=== PATIENT | female | born 1950 | race Caucasian/White ===

== ENCOUNTER → 2016-08-25 | Outpatient (CLI) | payer MEDICARE, OTHER ==
[2016-08-25 12:51] LABS: Hemoglobin A1C 6.8 % (4.2-6.1)
== END | disposition home or self-care (01) ==
LOC: LABWHC1 10:02
PROVIDERS: ATTEND Internal Medicine Cardiovascular Disease
DX: E11.9 Type 2 diabetes mellitus without complications (principal); E03.9 Hypothyroidism, unspecified; E78.2 Mixed hyperlipidemia
CPT/HCPCS: 36415; 80061; 83036; 84439; 84443; 84450; 84460

== ENCOUNTER 2017-09-02 14:36 | Emergency (ER) | payer MEDICARE, OTHER ==
[2017-09-02 14:53] VITALS: RESP 18
[2017-09-02] MEDS ORDERED: RX INFO: IV CONTRAST WAS GIVEN 1 EACH MISC MISCELLANE PRN (15:14)
[2017-09-02 15:39] LABS: Basophils # (A) 0.1 k/uL (0-0.2); Basophils % (A) 1 %; Eosinophils # (A) 0.2 k/uL (0-0.7); Eosinophils % (A) 2 %; HCT 38.7 % (34.0-46.0); HGB 12.7 gm/dL (11.4-16.0); Lymphocytes # (A) 2.2 k/uL (1.0-4.8); Lymphocytes % (A) 26 %; MCHC 32.8 g/dL (31.0-37.0); MCV 94.6 fL (80.0-100.0); Mean Platelet Volume 6.4; Monocytes # (A) 0.3 k/uL (0-1.0); Monocytes % (A) 4 %; Neutrophils # (A) 5.7 k/uL (1.3-7.7); Neutrophils % (A) 67 %; Platelet Count 249 k/uL (150-450); RBC 4.09 m/uL (3.80-5.40); RDW 12.6 % (11.5-15.5); WBC 8.5 k/uL (3.8-10.6)
--- NOTE | 2017-09-02 15:45 | ED ---
General Adult HPI - General Chief complaint: Abdominal Pain Stated complaint: Abd Pain Time Seen by Provider: 09/02/17 15:07 Source: patient, RN notes reviewed Mode of arrival: ambulatory Limitations: physical limitation - History of Present Illness Initial comments: Patient 67-year-old female who presents emergency room today with chief complaint of abdominal pain and swelling. She does admit that she's had these symptoms for quite some time. States been worse over the last few weeks. She went to family doctor's office earlier today and was advised coming here to the emergency room to have a CT of the abdomen and pelvis. Patient does admit that she gets sharp pain and cramping pain in the lower and upper abdomen. Patient doesn't feeling nauseated. Patient denies any other complaints or symptoms. Patient denies any recent fever, chills, shortness of breath, chest pain, back pain, numbness or tingling, dysuria or hematuria, constipation or diarrhea, headaches or visual changes, or any other complaints. - Related Data Home Medications Medication Instructions Recorded Confirmed OXcarbazepine [Trileptal] 300 mg PO BID 06/24/16 09/02/17 PARoxetine HCL [Paxil] 40 mg PO HS 06/24/16 09/02/17 clonazePAM [KlonoPIN] 1 - 2 mg PO DAILY PRN 07/15/16 09/02/17 Aspirin EC [Ecotrin Low Dose] 81 mg PO DAILY 09/02/17 09/02/17 Carvedilol [Coreg] 3.125 mg PO BID 09/02/17 09/02/17 Isosorbide Mononitrate ER [Imdur] 30 mg PO DAILY 09/02/17 09/02/17 Metoprolol Tartrate [Lopressor] 25 mg PO BID 09/02/17 09/02/17 Omeprazole [PriLOSEC] 20 mg PO DAILY 09/02/17 09/02/17 traZODone HCL 50 mg PO HS 09/02/17 09/02/17 Previous Rx's Medication Instructions Recorded Atorvastatin [Lipitor] 80 mg PO HS tab 08/15/15 Clopidogrel [Plavix] 75 mg PO DAILY tab 08/15/15 Nitroglycerin Sl Tabs [Nitrostat] 0.4 mg SUBLINGUAL Q5M PRN #0 tab 08/15/15 Nitrofurantoin Monohyd/M-Cryst 100 mg PO Q12HR #14 cap 09/02/17 [Macrobid] Allergies Allergy/AdvReac Type Severity Reaction Status Date / Time codeine AdvReac Nausea & Verified 09/02/17 16:01 Vomiting hydrocodone AdvReac Nausea & Verified 09/02/17 16:01 Vomiting Review of Systems ROS Statement: Those systems with pertinent positive or pertinent negative responses have been documented in the HPI. ROS Other: All systems not noted in ROS Statement are negative. Past Medical History Past Medical History: Coronary Artery Disease (CAD), Diabetes Mellitus, GERD/ Reflux, Hyperlipidemia, Hypertension, Myocardial Infarction ([place]), Osteoarthritis (OA) Additional Past Medical History / Comment(s): 01-31-15 pancreatitis. 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's lymphoma,l, chronic back pain, gout, diabetes mellitus, bipolar disorder/depression/anxiety, hyperlipidemia, coronary artery disease with previous [place], GERD reflux, chronic smoking, previous history of pancreatitis- etiology is not clear Last Myocardial Infarction Date:: 2014 History of Any Multi-Drug Resistant Organisms: None Reported Past Surgical History: Heart Catheterization With Stent Additional Past Surgical History / Comment(s): EGD/CoLONOSCOPY, bone maroow bx- neg, TOTAL OF 3 CARDIAC STENTS Past Anesthesia/Blood Transfusion Reactions: No Reported Reaction Additional Past Anesthesia/Blood Transfusion Reaction / Comment(s): clausterphobia Date of Last Stent Placement:: UNK Past Psychological History: Anxiety, Bipolar, Depression Smoking Status: Current every day smoker Past Alcohol Use History: None Reported Past Drug Use History: None Reported - Past Family History Father Family Medical History: Diabetes Mellitus, Myocardial Infarction ([place]) Mother Family Medical History: Diabetes Mellitus, Myocardial Infarction ([place]) General Exam - General Exam Comments Initial Comments: General: The patient is awake and alert, in no distress, and does not appear acutely ill. Eye: Pupils are equal, round and reactive to light, extra-ocular movements are intact. No nystagmus. There is normal conjunctiva bilaterally. No signs of icterus. Ears, nose, mouth and throat: There are moist mucous membranes and no oral lesions. Neck: The neck is supple, there is no tenderness or JVD. Cardiovascular: There is a regular rate and rhythm. No murmur, rub or gallop is appreciated. Respiratory: Lungs are clear to auscultation, respirations are non-labored, breath sounds are equal. No wheezes, stridor, rales, or rhonchi. Gastrointestinal: Abdomen mildly distended. Patient does have mild tenderness epigastric. Mild tenderness lower midline of the abdomen. No rebound tenderness. No guarding. No CVA tenderness. Musculoskeletal: Normal ROM, no tenderness. Strength 5/5. Sensation intact. Pulses equal bilaterally 2+. Neurological: A&O x 3. CN II-XII intact, There are no obvious motor or sensory deficits. Coordination appears grossly intact. Speech is normal. Skin: Skin is warm and dry and no rashes or lesions are noted. Psychiatric: Cooperative, appropriate mood & affect, normal judgment. Limitations: physical limitation Course Vital Signs 09/02/17 09/02/17 14:49 16:26 Temperature 98.4 F Pulse Rate 59 L 65 Respiratory 18 18 Rate Blood Pressure 119/59 132/62 O2 Sat by Pulse 96 98 Oximetry Medical Decision Making - Medical Decision Making The patient's CT reviewed does show constipation. Clear pulmonary edema and pleural effusion compared to an old computed tomography scan. Arthroscopic vascular disease. L4-5 mild spinal stenosis. No evidence of acute abdomen. As read by radiologist Dr. Pascal. Patient states she's been having good bowel movements. Patient's labs been reviewed does show evidence for urinary tract infection. Labs are unremarkable. No fever here in emergency room. She doesn't that she's had this abdominal "swelling" for quite some time. At this time patient was given dose Rocephin here in the emergency room to treat for urinary tract infection. Patient resting comfortably. Patient will be discharged from the follow-up the family doctor advised to have repeat urinalysis. Culture is pending. Patient will be continued on antibiotics at home. Advised return if there is any fever. Advised return for any other concerns. - Lab Data Result diagrams: 09/02/17 15:23 09/02/17 15:23 Lab Results 09/02/17 09/02/17 09/02/17 Range/Units 15:23 15:23 15: WBC 8.5 (3.8-10.6) k/uL RBC 4.09 (3.80-5.40) m/uL Hgb 12.7 (11.4-16.0) gm/dL Hct 38.7 (34.0-46.0) % MCV 94.6 (80.0-100.0) fL MCH 31.0 (25.0-35.0) pg MCHC 32.8 (31.0-37.0) g/dL RDW 12.6 (11.5-15.5) % Plt Count 249 (150-450) k/uL Neutrophils % 67 % Lymphocytes % 26 % Monocytes % 4 % Eosinophils % 2 % Basophils % 1 % Neutrophils # 5.7 (1.3-7.7) k/uL Lymphocytes # 2.2 (1.0-4.8) k/uL Monocytes # 0.3 (0-1.0) k/uL Eosinophils # 0.2 (0-0.7) k/uL Basophils # 0.1 (0-0.2) k/uL PT 9.7 (9.0-12.0) sec INR 1.0 (<1.2) APTT 22.6 (22.0-30.0) sec Sodium 137 (137-145) mmol/L Potassium 4.7 (3.5-5.1) mmol/L Chloride 103 (98-107) mmol/L Carbon Dioxide 22 (22-30) mmol/L Anion Gap 12 mmol/L BUN 14 (7-17) mg/dL Creatinine 0.85 (0.52-1.04) mg/dL Est GFR (MDRD) Af Amer >60 (>60 ml/min/1.73 sqM) Est GFR (MDRD) Non-Af >60 (>60 ml/min/1.73 sqM) Glucose 127 H (74-99) mg/dL Calcium 9.6 (8.4-10.2) mg/dL Total Bilirubin 0.5 (0.2-1.3) mg/dL AST 20 (14-36) U/L ALT 28 (9-52) U/L Alkaline Phosphatase 140 H (38-126) U/L Total Protein 6.7 (6.3-8.2) g/dL Albumin 4.3 (3.5-5.0) g/dL Urine Color Urine Appearance (Clear) Urine pH (5.0-8.0) Ur Specific [place] (1.001-1.035) Urine Protein (Negative) Urine Glucose (UA) (Negative) Urine Ketones (Negative) Urine Blood (Negative) Urine Nitrite (Negative) Urine Bilirubin (Negative) Urine Urobilinogen (<2.0) mg/dL Ur Leukocyte Esterase (Negative) Urine WBC (0-5) /hpf Urine WBC Clumps (None) /hpf Ur Squamous Epith Cells (0-4) /hpf Urine Bacteria (None) /hpf Urine Mucus (None) /hpf 09/02/17 Range/Units 15:23 WBC (3.8-10.6) k/uL RBC (3.80-5.40) m/uL Hgb (11.4-16.0) gm/dL Hct (34.0-46.0) % MCV (80.0-100.0) fL MCH (25.0-35.0) pg MCHC (31.0-37.0) g/dL RDW (11.5-15.5) % Plt Count (150-450) k/uL Neutrophils % % Lymphocytes % % Monocytes % % Eosinophils % % Basophils % % Neutrophils # (1.3-7.7) k/uL Lymphocytes # (1.0-4.8) k/uL Monocytes # (0-1.0) k/uL Eosinophils # (0-0.7) k/uL Basophils # (0-0.2) k/uL PT (9.0-12.0) sec INR (<1.2) APTT (22.0-30.0) sec Sodium (137-145) mmol/L Potassium (3.5-5.1) mmol/L Chloride (98-107) mmol/L Carbon Dioxide (22-30) mmol/L Anion Gap mmol/L BUN (7-17) mg/dL Creatinine (0.52-1.04) mg/dL Est GFR (MDRD) Af Amer (>60 ml/min/1.73 sqM) Est GFR (MDRD) Non-Af (>60 ml/min/1.73 sqM) Glucose (74-99) mg/dL Calcium (8.4-10.2) mg/dL Total Bilirubin (0.2-1.3) mg/dL AST (14-36) U/L ALT (9-52) U/L Alkaline Phosphatase (38-126) U/L Total Protein (6.3-8.2) g/dL Albumin (3.5-5.0) g/dL Urine Color Light Yellow Urine Appearance Slightly Cloudy H (Clear) Urine pH 6.0 (5.0-8.0) Ur Specific [place] 1.015 (1.001-1.035) Urine Protein 1+ (Negative) Urine Glucose (UA) Negative (Negative) Urine Ketones Negative (Negative) Urine Blood Negative (Negative) Urine Nitrite Negative (Negative) Urine Bilirubin 1+ H (Negative) Urine Urobilinogen 2.0 (<2.0) mg/dL Ur Leukocyte Esterase Large (Negative) Urine WBC >182 H (0-5) /hpf Urine WBC Clumps Rare H (None) /hpf Ur Squamous Epith Cells 3 (0-4) /hpf Urine Bacteria Few H (None) /hpf Urine Mucus Rare H (None) /hpf Disposition Clinical Impression: UTI (urinary tract infection), Abdominal pain Disposition: HOME SELF-CARE Condition: Good Instructions: Urinary Tract Infection in Women (ED) Additional Instructions: Please use medication as discussed. Please follow-up with family doctor in the next 2 days. Please return to emergency room if the symptoms increase or worsen or for any other concerns. Prescriptions: Nitrofurantoin Monohyd/M-Cryst [Macrobid] 100 mg PO Q12HR #14 cap Referrals: Nancy Chavez MD [Primary Care Provider] - 1-2 days Time of Disposition: 17:59
[2017-09-02 15:48] LABS: Bacteria,Urine Few /hpf; Mucus,Urine Rare /hpf; Squamous Epithelial Cell,Urine 3 /hpf (0-4); WBC,Urine >182 /hpf (0-5)
[2017-09-02] MEDS ORDERED: cefTRIAXone IN SWFI 1,000 MG/10 ML SYRINGE IVP STA (15:50)
[2017-09-02 15:55] LABS: ALT 28 U/L (9-52); AST 20 U/L (14-36); Albumin 4.3 g/dL (3.5-5.0); Alkaline Phosphatase 140 U/L (38-126); Anion Gap 12 mmol/L; Appearance,Urine Slightly Cloudy (Clear); Blood Urea Nitrogen 14 mg/dL (7-17); Calcium 9.6 mg/dL (8.4-10.2); Carbon Dioxide 22 mmol/L (22-30); Chloride 103 mmol/L (98-107); Color,Urine Light Yellow; Glucose 127 mg/dL (74-99); Potassium 4.7 mmol/L (3.5-5.1); Protein,Urine 1+ (Negative); Sodium 137 mmol/L (137-145); Specific Gravity,Urine 1.015 (1.001-1.035); Total Bilirubin 0.5 mg/dL (0.2-1.3); Total Protein 6.7 g/dL (6.3-8.2)
[2017-09-02 15:56] LABS: Bilirubin,Urine 1+ (Negative); Blood,Urine Negative (Negative); Glucose,Urine (UA) Negative (Negative); Ketones,Urine Negative (Negative); Leukocyte Esterase,Urine Large (Negative); Nitrite,Urine Negative (Negative)
[2017-09-02 16:09] LABS: Partial Thromboplastin Time 22.6 sec (22.0-30.0); Prothrombin Time 9.7 sec (9.0-12.0)
--- NOTE | 2017-09-02 17:24 | CT ---
EXAMINATION TYPE: CT abdomen pelvis w con DATE OF EXAM: 09/02/2017 COMPARISON: 08/05/2015 HISTORY: Generalized pain CT DLP: 1432 mGycm Automated exposure control for dose reduction was used. TECHNIQUE: Helical acquisition of images was performed from the lung bases through the pelvis. CONTRAST: Performed without Oral Contrast and with IV Contrast, patient injected with 100 mL of Omnipaque 300. FINDINGS: Lung bases are clear. There is no pleural effusion. Liver spleen pancreas gallbladder appear normal. Bile ducts are not dilated. There is no adrenal mass. Kidneys show satisfactory contrast opacification. There is no hydronephrosi s. There is no retroperitoneal adenopathy. There is no ascites. Abdominal aorta is atheromatous. Ther e is some retained fecal material throughout the colon. There is no sign of free air. I see no intest inal wall thickening. Appendix appears normal. There are spondylotic changes in the lumbar spine. There is lateral recess stenosis and some spinal s tenosis at L4-5. IMPRESSION: CONSTIPATION. THERE IS CLEARING OF THE PULMONARY EDEMA AND PLEURAL FLUID COMPARED TO OLD CT SCAN. ATHEROSCLEROTIC VASCULAR DISEASE. L4-5 MILD SPINAL STENOSIS. NO EVIDENCE OF AN ACUTE ABDOMEN.
[2017-09-02 19:45] VITALS: BP 124/76; PULSE 62; TEMP 98
== END 2017-09-02 16:00 | disposition home or self-care (01) ==
LOC: EC 14:36
DX: N39.0 Urinary tract infection, site not specified (principal); R10.10 Upper abdominal pain, unspecified; K59.00 Constipation, unspecified; M48.061 Spinal stenosis, lumbar region without neurogenic claudication; J81.1 Chronic pulmonary edema; J90 Pleural effusion, not elsewhere classified; I99.9 Unspecified disorder of circulatory system; R14.0 Abdominal distension (gaseous); R19.00 Intra-abdominal and pelvic swelling, mass and lump, unspecified site; I10 Essential (primary) hypertension; I25.10 Atherosclerotic heart disease of native coronary artery without angina pectoris; K21.9 Gastro-esophageal reflux disease without esophagitis; M19.90 Unspecified osteoarthritis, unspecified site; F41.9 Anxiety disorder, unspecified; M10.9 Gout, unspecified; F32.9 Major depressive disorder, single episode, unspecified; I25.2 Old myocardial infarction; F17.200 Nicotine dependence, unspecified, uncomplicated; Z79.82 Long term (current) use of aspirin; Z79.899 Other long term (current) drug therapy; Z88.5 Allergy status to narcotic agent
CPT/HCPCS: 36415; 80053; 85025; 85610; 85730; 81001; 74177; 99284; 96374; J0696; Q9967

== ENCOUNTER 2018-08-22 14:30 | Emergency (ER) | payer MEDICARE, OTHER ==
[2018-08-22 14:54] VITALS: RESP 18
[2018-08-22] MEDS ORDERED: SODIUM CHLORIDE 0.9% 1,000 ML IV STA (14:59)
[2018-08-22 15:35] LABS: Basophils # (A) 0.1 k/uL (0-0.2); Basophils % (A) 1 %; Eosinophils # (A) 0.2 k/uL (0-0.7); Eosinophils % (A) 3 %; HCT 37.4 % (34.0-46.0); HGB 12.6 gm/dL (11.4-16.0); Lymphocytes # (A) 1.6 k/uL (1.0-4.8); Lymphocytes % (A) 17 %; MCH 31.2 pg (25.0-35.0); MCHC 33.6 g/dL (31.0-37.0); Mean Platelet Volume 6.4; Monocytes # (A) 0.3 k/uL (0-1.0); Monocytes % (A) 3 %; Neutrophils # (A) 6.8 k/uL (1.3-7.7); Neutrophils % (A) 75 %; Platelet Count 204 k/uL (150-450); RBC 4.02 m/uL (3.80-5.40); RDW 12.5 % (11.5-15.5)
[2018-08-22 15:46] LABS: INR 0.9 (<1.2); Prothrombin Time 9.6 sec (9.0-12.0)
[2018-08-22 15:49] LABS: Albumin 3.5 g/dL (3.5-5.0); Calcium 9.1 mg/dL (8.4-10.2); Creatine Kinase 52 U/L (30-135); Magnesium 1.9 mg/dL (1.6-2.3); Potassium 4.9 mmol/L (3.5-5.1); Total Bilirubin 0.5 mg/dL (0.2-1.3); Total Protein 5.8 g/dL (6.3-8.2)
--- NOTE | 2018-08-22 15:58 | XR ---
EXAMINATION TYPE: XR chest 2V DATE OF EXAM: 08/22/2018 COMPARISON: 07/07/2016 HISTORY: Syncopal episode. TECHNIQUE: Frontal and lateral views of the chest are obtained. FINDINGS: There is new right basilar atelectasis at the right cardiophrenic angle. Cardia mediastina l silhouette is mildly enlarged. Remainder the lungs are clear. No pleural effusion or pneumothorax. IMPRESSION: New right middle lobe atelectasis, otherwise no acute cardiopulmonary process.
[2018-08-22 15:59] LABS: Partial Thromboplastin Time 20.5 sec (22.0-30.0)
[2018-08-22 16:01] LABS: Creatine Kinase MB 0.3 ng/mL (0.0-2.4); Troponin I <0.012 ng/mL (0.000-0.034)
--- NOTE | 2018-08-22 16:40 | ED ---
Syncope HPI - General Source: patient, EMS Mode of arrival: EMS Limitations: no limitations <Zurdo Clarke - Last Filed: 08/22/18 16:38> <Mati Darling - Last Filed: 08/22/18 19:12> - General Chief Complaint: Syncope Stated Complaint: Syncope Time Seen by Provider: 08/22/18 14:55 - History of Present Illness Initial Comments: 68-year-old female presents emergency Department with chief complaint of syncope. Patient states she was a local store states that she started feeling that her heart was racing states she felt off and states that she passed out woke up on the ground. She has no headache no dizziness denies any head or neck pain. Patient states that she had another episode like this at her PCPs office states that she came to the emergency department was supposed be admitted but states that she left. Patient states that she has had prior cardiac disease with IA and stent placement. Patient denies any shortness of breath or pleuritic chest pain. Denies any nausea vomiting, focal weakness. ( Zurdo Clarke) - Related Data Home Medications Medication Instructions Recorded Confirmed OXcarbazepine [Trileptal] 300 mg PO BID 06/24/16 08/22/18 PARoxetine HCL [Paxil] 40 mg PO HS 06/24/16 08/22/18 clonazePAM [KlonoPIN] 1 - 2 mg PO DAILY PRN 07/15/16 08/22/18 Aspirin EC [Ecotrin Low Dose] 81 mg PO DAILY 09/02/17 08/22/18 Carvedilol [Coreg] 3.125 mg PO BID 09/02/17 08/22/18 Isosorbide Mononitrate ER [Imdur] 30 mg PO DAILY 09/02/17 08/22/18 Metoprolol Tartrate [Lopressor] 25 mg PO BID 09/02/17 08/22/18 Omeprazole [PriLOSEC] 20 mg PO DAILY 09/02/17 08/22/18 traZODone HCL [TraZODone HCl] 1 - 2 tab PO HS 08/22/18 08/22/18 Previous Rx's Medication Instructions Recorded Atorvastatin [Lipitor] 80 mg PO HS tab 08/15/15 Clopidogrel [Plavix] 75 mg PO DAILY tab 08/15/15 Nitroglycerin Sl Tabs [Nitrostat] 0.4 mg SUBLINGUAL Q5M PRN #0 tab 08/15/15 Allergies Allergy/AdvReac Type Severity Reaction Status Date / Time codeine AdvReac Nausea & Verified 09/02/17 16:01 Vomiting hydrocodone AdvReac Nausea & Verified 09/02/17 16:01 Vomiting Latex, Natural Rubber AdvReac Rash/Hives Verified 08/22/18 16:31 Review of Systems ROS Other: All systems not noted in ROS Statement are negative. <Zurdo Clarke - Last Filed: 08/22/18 16:38> ROS Other: All systems not noted in ROS Statement are negative. <Mati Darling - Last Filed: 08/22/18 19:12> ROS Statement: Those systems with pertinent positive or pertinent negative responses have been documented in the HPI. Past Medical History Past Medical History: Coronary Artery Disease (CAD), Diabetes Mellitus, GERD/ Reflux, Hyperlipidemia, Hypertension, Myocardial Infarction ([place]), Osteoarthritis (OA) Additional Past Medical History / Comment(s): 01-31-15 pancreatitis. 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's lymphoma,l, chronic back pain, gout, diabetes mellitus, bipolar disorder/depression/anxiety, hyperlipidemia, coronary artery disease with previous [place], GERD reflux, chronic smoking, previous history of pancreatitis- etiology is not clear Last Myocardial Infarction Date:: 2014 History of Any Multi-Drug Resistant Organisms: None Reported Past Surgical History: Heart Catheterization With Stent Additional Past Surgical History / Comment(s): EGD/CoLONOSCOPY, bone maroow bx- neg, TOTAL OF 3 CARDIAC STENTS Past Anesthesia/Blood Transfusion Reactions: No Reported Reaction Additional Past Anesthesia/Blood Transfusion Reaction / Comment(s): clausterphobia Date of Last Stent Placement:: UNK Past Psychological History: Anxiety, Bipolar, Depression Smoking Status: Current every day smoker Past Alcohol Use History: None Reported Past Drug Use History: None Reported - Past Family History Father Family Medical History: Diabetes Mellitus, Myocardial Infarction ([place]) Mother Family Medical History: Diabetes Mellitus, Myocardial Infarction ([place]) <Zurdo Clarke - Last Filed: 08/22/18 16:38> General Exam Limitations: no limitations General appearance: alert, in no apparent distress Head exam: Present: atraumatic, normocephalic, normal inspection Eye exam: Present: normal appearance, PERRL, EOMI. Absent: scleral icterus, conjunctival injection, periorbital swelling Neck exam: Present: normal inspection. Absent: tenderness, meningismus, lymphadenopathy Respiratory exam: Present: normal lung sounds bilaterally. Absent: respiratory distress, wheezes, rales, rhonchi, stridor Cardiovascular Exam: Present: regular rate, normal rhythm, normal heart sounds. Absent: systolic murmur, diastolic murmur, rubs, gallop, clicks GI/Abdominal exam: Present: soft, normal bowel sounds. Absent: distended, tenderness, guarding, rebound, rigid Neurological exam: Present: alert, oriented X3, CN II-XII intact, reflexes normal. Absent: motor sensory deficit <Zurdo Clarke - Last Filed: 08/22/18 16:38> Vital Signs 08/22/18 08/22/18 08/22/18 14:40 17:30 18:00 Temperature 97.7 F Pulse Rate 61 56 L 55 L Respiratory 18 20 19 Rate Blood Pressure 142/54 146/61 132/55 O2 Sat by Pulse 98 98 98 Oximetry 08/22/18 08/22/18 18:30 19:00 Temperature Pulse Rate 56 L 58 L Respiratory 20 18 Rate Blood Pressure 139/56 125/79 O2 Sat by Pulse 98 98 Oximetry EKG Findings - EKG Comments: EKG Findings:: EKG performed at 15:44 sinus bradycardia with a rate of 55 IA 180 QRS 88 QT/QTc 448/428 <Zurdo Clarke - Last Filed: 08/22/18 16:38> Medical Decision Making - Lab Data Result diagrams: 08/22/18 15:18 08/22/18 15:18 <Zurdo Clarke - Last Filed: 08/22/18 16:38> - Lab Data Result diagrams: 08/22/18 15:18 08/22/18 15:18 <Mati Darling - Last Filed: 08/22/18 19:12> - Lab Data Lab Results 08/22/18 08/22/18 08/22/18 Range/Units 15:18 15:18 15:18 WBC 9.0 (3.8-10.6) k/uL RBC 4.02 (3.80-5.40) m/uL Hgb 12.6 (11.4-16.0) gm/dL Hct 37.4 (34.0-46.0) % MCV 93.0 (80.0-100.0) fL MCH 31.2 (25.0-35.0) pg MCHC 33.6 (31.0-37.0) g/dL RDW 12.5 (11.5-15.5) % Plt Count 204 (150-450) k/uL Neutrophils % 75 % Lymphocytes % 17 % Monocytes % 3 % Eosinophils % 3 % Basophils % 1 % Neutrophils # 6.8 (1.3-7.7) k/uL Lymphocytes # 1.6 (1.0-4.8) k/uL Monocytes # 0.3 (0-1.0) k/uL Eosinophils # 0.2 (0-0.7) k/uL Basophils # 0.1 (0-0.2) k/uL PT (9.0-12.0) sec INR (<1.2) APTT (22.0-30.0) sec Sodium 138 (137-145) mmol/L Potassium 4.9 (3.5-5.1) mmol/L Chloride 105 (98-107) mmol/L Carbon Dioxide 28 (22-30) mmol/L Anion Gap 5 mmol/L BUN 17 (7-17) mg/dL Creatinine 0.92 (0.52-1.04) mg/dL Est GFR (CKD-EPI)AfAm 73 (>60 ml/min/1.73 sqM) Est GFR (CKD-EPI)NonAf 64 (>60 ml/min/1.73 sqM) Glucose 145 H (74-99) mg/dL Calcium 9.1 (8.4-10.2) mg/dL Magnesium 1.9 (1.6-2.3) mg/dL Total Bilirubin 0.5 (0.2-1.3) mg/dL AST 19 (14-36) U/L ALT 37 (9-52) U/L Alkaline Phosphatase 109 (38-126) U/L Total Creatine Kinase 52 (30-135) U/L CK-MB (CK-2) 0.3 (0.0-2.4) ng/mL CK-MB (CK-2) Rel Index 0.6 Troponin I <0.012 (0.000-0.034) ng/mL Total Protein 5.8 L (6.3-8.2) g/dL Albumin 3.5 (3.5-5.0) g/dL Urine Color Urine Appearance (Clear) Urine pH (5.0-8.0) Ur Specific [place] (1.001-1.035) Urine Protein (Negative) Urine Glucose (UA) (Negative) Urine Ketones (Negative) Urine Blood (Negative) Urine Nitrite (Negative) Urine Bilirubin (Negative) Urine Urobilinogen (<2.0) mg/dL Ur Leukocyte Esterase (Negative) 08/22/18 08/22/18 Range/Units 15:18 17:28 WBC (3.8-10.6) k/uL RBC (3.80-5.40) m/uL Hgb (11.4-16.0) gm/dL Hct (34.0-46.0) % MCV (80.0-100.0) fL MCH (25.0-35.0) pg MCHC (31.0-37.0) g/dL RDW (11.5-15.5) % Plt Count (150-450) k/uL Neutrophils % % Lymphocytes % % Monocytes % % Eosinophils % % Basophils % % Neutrophils # (1.3-7.7) k/uL Lymphocytes # (1.0-4.8) k/uL Monocytes # (0-1.0) k/uL Eosinophils # (0-0.7) k/uL Basophils # (0-0.2) k/uL PT 9.6 (9.0-12.0) sec INR 0.9 (<1.2) APTT 20.5 L (22.0-30.0) sec Sodium (137-145) mmol/L Potassium (3.5-5.1) mmol/L Chloride (98-107) mmol/L Carbon Dioxide (22-30) mmol/L Anion Gap mmol/L BUN (7-17) mg/dL Creatinine (0.52-1.04) mg/dL Est GFR (CKD-EPI)AfAm (>60 ml/min/1.73 sqM) Est GFR (CKD-EPI)NonAf (>60 ml/min/1.73 sqM) Glucose (74-99) mg/dL Calcium (8.4-10.2) mg/dL Magnesium (1.6-2.3) mg/dL Total Bilirubin (0.2-1.3) mg/dL AST (14-36) U/L ALT (9-52) U/L Alkaline Phosphatase (38-126) U/L Total Creatine Kinase (30-135) U/L CK-MB (CK-2) (0.0-2.4) ng/mL CK-MB (CK-2) Rel Index Troponin I (0.000-0.034) ng/mL Total Protein (6.3-8.2) g/dL Albumin (3.5-5.0) g/dL Urine Color Yellow Urine Appearance Clear (Clear) Urine pH 7.0 (5.0-8.0) Ur Specific [place] 1.009 (1.001-1.035) Urine Protein Negative (Negative) Urine Glucose (UA) Negative (Negative) Urine Ketones Negative (Negative) Urine Blood Negative (Negative) Urine Nitrite Negative (Negative) Urine Bilirubin Negative (Negative) Urine Urobilinogen <2.0 (<2.0) mg/dL Ur Leukocyte Esterase Negative (Negative) Disposition <Zurdo Clarke M - Last Filed: 08/22/18 16:38> Is patient prescribed a controlled substance at d/c from ED?: No <Mati Darling - Last Filed: 08/22/18 19:12> Clinical Impression: Vasovagal syncope, Syncope Disposition: HOME SELF-CARE Condition: Good Instructions (If sedation given, give patient instructions): Syncope (ED) Referrals: Nancy Chavez MD [Primary Care Provider] - 1-2 days
[2018-08-22 17:48] LABS: Appearance,Urine Clear (Clear); Bilirubin,Urine Negative (Negative); Blood,Urine Negative (Negative); Color,Urine Yellow; Glucose,Urine (UA) Negative (Negative); Ketones,Urine Negative (Negative); Leukocyte Esterase,Urine Negative (Negative); Nitrite,Urine Negative (Negative); Protein,Urine Negative (Negative); Specific Gravity,Urine 1.009 (1.001-1.035); Urobilinogen,Urine <2.0 mg/dL (<2.0)
[2018-08-22 19:28] VITALS: BP 140/90; PULSE 52; TEMP 98.1
== END 2018-08-22 19:32 | disposition home or self-care (01) ==
LOC: EC 14:30
DX: R55 Syncope and collapse (principal); I25.10 Atherosclerotic heart disease of native coronary artery without angina pectoris; K21.9 Gastro-esophageal reflux disease without esophagitis; I10 Essential (primary) hypertension; I25.2 Old myocardial infarction; F41.9 Anxiety disorder, unspecified; F32.9 Major depressive disorder, single episode, unspecified; F17.200 Nicotine dependence, unspecified, uncomplicated; Z85.72 Personal history of non-Hodgkin lymphomas; Z95.5 Presence of coronary angioplasty implant and graft; Z82.49 Family history of ischemic heart disease and other diseases of the circulatory system; Z79.82 Long term (current) use of aspirin; Z79.899 Other long term (current) drug therapy; Z88.5 Allergy status to narcotic agent; Z91.040 Latex allergy status
CPT/HCPCS: 36415; 71046; 80053; 81003; 82550; 82553; 83735; 84484; 85025; 85610; 85730; 93005; 96360; 96361; 99285

== ENCOUNTER → 2019-09-08 | Outpatient (CLI) | payer MEDICARE, OTHER ==
--- NOTE | 2019-09-11 08:48 | MM ---
Reason for exam: clinical finding. Last mammogram was performed 13 years and 3 months ago. History: Patient is postmenopausal. Family history of breast cancer in mother and breast cancer in aunt. Physical Findings: Nurse Summary: 2cm nodule in the right breast at 10 o'clock, 1cm nodule in the right breast at 9 o'clock, 0.5-1cm nodule in the left breast at 1 o'clock (nurse kp). MG 3D Diag Mammo W/Cad TELLY Bilateral CC, MLO, and XCCL view(s) were taken. No prior studies available for comparison. There are scattered fibroglandular densities. Finding: There is suspicious, high, spiculated, architectural distortion located 11 cm from the nipple in the upper outer quadrant, posterior position of the right breast consistent with posterior right BB. Right axillary lymphadenopathy present. There is no discrete abnormality more anterior right BB and left BB. These results were verbally communicated with the patient and result sheet given to the patient on 09/08/19. ASSESSMENT: Incomplete: need additional imaging evaluation, BI-RAD 0 RECOMMENDATION: Ultrasound of both breasts.
--- NOTE | 2019-09-11 08:51 | USB ---
Reason for exam: additional evaluation requested from abnormal screening. History: Patient is postmenopausal. Family history of breast cancer in mother and breast cancer in aunt. US Breast Limited BILAT Right limited breast ultrasound including focal area of concern, retroareolar and axilla demonstrates a 2.1 x 1.7 x 1.6cm irregular, angular, solid, vascular lesion at 10 o'clock. Node noted at right axilla. Left limited breast ultrasound including focal area of concern, retroareolar and axilla demonstrates no cystic or solid lesion seen. These results were verbally communicated with the patient and result sheet given to the patient on 09/08/19. ASSESSMENT: Highly suggestive of malignancy, BI-RAD 5 RECOMMENDATION: Ultrasound core biopsy of the right breast. Called Dr. Chavez's office with mammographic findings and has scheduled an appointment for the patient for 09/08/19 at 2:[address] Potter. Biopsy scheduled for 09/13/19 at 8:00. PRELIMINARY REPORT CALLED AND FAXED TO DR. POTTER ON 09/08/19.
== END | disposition home or self-care (01) ==
LOC: RADMAMWWP 12:34
PROVIDERS: ATTEND Family Medicine
DX: N63.11 Unspecified lump in the right breast, upper outer quadrant (principal)
CPT/HCPCS: 77066; 76642; G0279; 77062

== ENCOUNTER → 2019-09-20 | Day surgery (SDC) | payer MEDICARE, OTHER ==
[2019-09-20 09:24] VITALS: RESP 16
--- NOTE | 2019-09-20 11:37 | USB ---
EXAMINATION TYPE: US breast needle core addl RT, US biopsy breast VAD RT, MG diagnostic mammo RT wo CAD DATE OF EXAM: 09/20/2019 CLINICAL HISTORY: R92.8 abnormal mammogram. TECHNIQUE: Ultrasound guided core biopsy of right breast. COMPARISON: Right breast ultrasound dated 09/20/2019 FINDINGS: The procedure of ultrasound guided core biopsy was explained to the patient. Benefits, alternatives, and risks were discussed. An informed consent was then obtained. Preprocedural timeout was performed. Site A (right 10:00 mass): The patient was placed in supine positioning for imaging and for the procedure. The overlying skin was prepped and draped in usual sterile fashion. 20 cc of 1% lidocaine with bicarbonate was used as anesthetic into the skin and subcutaneous tissue up to 2.1 cm mass at the 10:00 position in the right breast. Under ultrasound guidance, a 12-gauge vacuum assisted biopsy gun device was used to obtain 7 core samples, although only necrotic fluid was identified in the specimen chamber and therefore 3 additional biopsies were taken with an 18-gauge Bard nonvacuum assisted biopsy device. Following this, a wing shaped biopsy marker was left in mass. Site B (right axillary lymph node): The patient was placed in supine positioning for imaging and for the procedure. The overlying skin was prepped and draped in usual sterile fashion. Lidocaine buffered with bicarbonate was used as anesthetic into the skin and subcutaneous tissue up to area of concern in the breast. A jarvis was made with surgical scalpel. Under ultrasound guidance, an 18-gauge Bard nonvacuum assisted biopsy device was used to obtain 3 core samples. Following this, a Penryn rickey was left in axillary node. The patient tolerated the procedure well without any immediate complication. The patient was kept in the radiology department for short stay after the procedure and then discharged home in stable condition. Postprocedure mammogram demonstrates appropriate biopsy marker placement of both biopsy markers. IMPRESSION: Successful, uncomplicated ultrasound guided core biopsy of area of a highly suspicious 2.1 cm mass at the 10:00 position in the right breast and abnormal right axillary lymph node, full pathology results to follow. Pathology Results: Malignant A. RIGHT BREAST LESION AT TEN O'CLOCK, BIOPSY: Grade 2 infiltrating ductal adenocarcinoma. See Surgical Pathology Cancer Case Summary. B. RIGHT BREAST LESION AT TEN O'CLOCK ADDITIONAL CORES: Grade 2 infiltrating ductal adenocarcinoma. An appropriately controlled immunohistochemical study for E-Cadherin is strongly reactive with infiltrating carcinoma cells establishing the diagnosis of ductal adenocarcinoma. See Surgical Pathology Cancer Case Summary. C. RIGHT AXILLARY LESION, NEEDLE CORE BIOPSIES: Moderately differentiated (Grade 2) infiltrating carcinoma associated with foci of residual lymphoid parenchyma consistent with metastatic adenocarcinoma involving axillary lymph node. Recommendation Surgical consult of the right breast. Definitive surgical management. MTDD
[2019-09-20 11:42] VITALS: BP 107/67; PULSE 60; TEMP 97.8
--- NOTE | 2019-09-25 11:57 | CDI ---
Date: 09.25.19 CDS/Slot Floor Person Name: Mariana Torres Phone: If any questions, call Sade Osorio Branch Operations Specialist at [phone] Patient Name: Vanesa Cole Admit Date: 09.20.19 Discharge Date: 09.20.19 ATTENTION: The [facility] Coding Staff appreciate your assistance in clarifying documentation. Please respond to the clarification below the line at the bottom and electronically sign. The [facility] Coding staff will review the response and follow-up if needed. Please note: Queries are made part of the Legal Health Record. If you have any questions, please contact the Branch Operations Specialist. Dear Dr. Esparza On the lymph node biopsy, I need the depth of the lymph node that was removed. Superficial or deep Thank you for your kind consideration. MTDD
== END ==
LOC: RADUSWWP 08:31
PROVIDERS: ATTEND Surgery
DX: C50.911 Malignant neoplasm of unspecified site of right female breast (principal); C77.3 Secondary and unspecified malignant neoplasm of axilla and upper limb lymph nodes
CPT/HCPCS: 88305; 88342; 88341; 77065; 19083; 19084; A4648; J2001

== ENCOUNTER 2019-11-29 16:00 | Inpatient (IN) | payer MEDICARE, OTHER ==
--- NOTE | 2019-11-29 17:10 | XR ---
EXAMINATION TYPE: XR ankle complete LT DATE OF EXAM: 11/29/2019 CLINICAL HISTORY: Pain and bruising after fall injury. TECHNIQUE: Frontal, lateral and oblique images of the left ankle are obtained. COMPARISON: None. FINDINGS: There is acute oblique slightly displaced intra-articular fracture through the lateral mal leolus. There is acute displaced fracture through the medial malleolus with 1.7 cm distal fracture fr agment. On lateral view there is acute comminuted intra-articular displaced fracture involving the po sterior malleolus. The ankle mortise is disrupted with medial widening and lateral angulation of the talar dome relative to the distal tibia. Moderate associated soft tissue swelling. IMPRESSION: There is acute displaced trimalleolar fracture with mortise disruption. (Initial encounter close type posttraumatic fracture)
[2019-11-29] MEDS ORDERED: MORPHINE SULFATE 4 MG/ML SYRINGE IVP STA (17:29)
[2019-11-29] MEDS ORDERED: ONDANSETRON 4 MG/2 ML VIAL IVP STA (17:29)
[2019-11-29 17:46] LABS: Glucose,Whole Blood 194 mg/dL (75-99)
--- NOTE | 2019-11-29 18:20 | XR ---
EXAMINATION TYPE: XR chest 2V DATE OF EXAM: 11/29/2019 COMPARISON: Prior chest x-ray August 22, 2018 HISTORY: Presurgical study. TECHNIQUE: Frontal and lateral views of the chest are obtained. FINDINGS: There is chronic parenchymal changes bilaterally without suspicious new focal air space op acity, pleural effusion, or pneumothorax seen. The cardiac silhouette size is mildly enlarged with a therosclerotic change aortic knob. The osseous structures remain demineralized. IMPRESSION: Chronic changes and mild cardiomegaly without acute pulmonary process on current study.
--- NOTE | 2019-11-29 18:23 | CT ---
EXAMINATION TYPE: CT brain cspine wo con DATE OF EXAM: 11/29/2019 COMPARISON: CT brain March 20, 2016 HISTORY: Fall injury with headache and neck pain. CT DLP: 1276 mGycm. Automated Exposure Control for Dose Reduction was Utilized. TECHNIQUE: CT scan of the head and cervical spine are performed without contrast. FINDINGS: There is no acute intracranial hemorrhage or midline shift identified. Mild ventricular a nd sulcal prominence. Mild low attenuation in the periventricular white matter. The calvarium is inta ct. The globes are intact and the visualized sinuses are clear. Sclerosis surrounds the left sphenoi d sinus. Cervical spine is visualized in its entirety from C1 through upper thoracic levels and demonstrates s traightened alignment without evidence of acute fracture or dislocation. Prevertebral soft tissue ap pears within normal limits. The C1-C2 articulation is within normal limits on the coronal images. V ertebral body heights are maintained. Moderate disc space narrowing and spurring C5-C6 level with pos terior spur disc complex effacing the anterior thecal sac. Mild to moderate disc space narrowing C4-C 5 and C6-C7 levels. Axial images show multilevel uncovertebral facet degenerative changes greatest le ft C2-C3 through C4-C5 levels and left C6-C7 level contributing to multilevel neural foraminal narrow ing. Thyroid gland upper limits of normal in size. Lung apices show no pneumothorax. IMPRESSION: 1. There is no acute fracture or dislocation evident in the cervical spine. 2. No acute intracranial hemorrhage or midline shift is seen.
[2019-11-29 18:42] LABS: Basophils % (A) 0 %; Eosinophils % (A) 0 %; HCT 35.6 % (34.0-46.0); HGB 11.8 gm/dL (11.4-16.0); Lymphocytes # (A) 1.1 k/uL (1.0-4.8); Lymphocytes % (A) 8 %; MCHC 33.2 g/dL (31.0-37.0); MCV 96.3 fL (80.0-100.0); Mean Platelet Volume 6.8; Monocytes # (A) 0.5 k/uL (0-1.0); Monocytes % (A) 3 %; Neutrophils % (A) 88 %; Platelet Count 257 k/uL (150-450); RDW 12.4 % (11.5-15.5); WBC 13.7 k/uL (3.8-10.6)
[2019-11-29 18:53] LABS: Calcium 9.4 mg/dL (8.4-10.2); Potassium 4.7 mmol/L (3.5-5.1); Total Bilirubin 0.3 mg/dL (0.2-1.3); Total Protein 6.4 g/dL (6.3-8.2)
[2019-11-29] MEDS ORDERED: NALOXONE 0.4 MG/ML 1 ML VIAL IV PRN (19:07)
[2019-11-29] MEDS ORDERED: HYDROmorphone 0.5 MG/0.5 ML SYRINGE IVP STA (19:35)
--- NOTE | 2019-11-29 20:01 | ED ---
General Adult HPI - General Chief complaint: Fall Stated complaint: Fall Time Seen by Provider: 11/29/19 16:18 Source: EMS, RN notes reviewed, old records reviewed Mode of arrival: EMS Limitations: no limitations - History of Present Illness Initial comments: 69-year-old female patient past medical history of coronary artery disease status post stent placement from sleep with the complaint of fall. Patient reports that last night she woke in the middle the night with the urge to have diarrhea. Patient was attempting to navigate in the dark towards the bathroom when she slipped and fell, injuring her left ankle and hitting her head. Denies a loss of consciousness. Patient to complaints stated left ankle pain. Denies any other complaints. Systemic: Pt denies fatigue, fever/chills, rash. Pt denies weakness, night sweats, weight loss. Neuro: Pt denies headache, visual disturbances, syncope or pre-syncope. HEENT: Pt denies ocular discharge or irritation, otalgia, rhinorrhea, pharyngitis or notable lymphadenopathy. Cardiopulmonary: Pt denies chest pain, SOB, heart palpitations, dyspnea on exertion. Abdominal/GI: Pt denies abdominal pain, n/v/d. : Pt denies dysuria, burning w/ urination, frequency/urgency. Denies new onset urinary or bowel incontinence. MSK: Pt denies myalgia, loss of strength or function in extremities. Neuro: Pt denies new onset weakness, paresthesias. - Related Data Home Medications Medication Instructions Recorded Confirmed OXcarbazepine [Trileptal] 300 mg PO BID 06/24/16 11/29/19 PARoxetine HCL [Paxil] 40 mg PO DAILY 06/24/16 11/29/19 clonazePAM [KlonoPIN] 1 - 2 mg PO DAILY PRN 07/15/16 11/29/19 Aspirin EC [Ecotrin Low Dose] 81 mg PO DAILY 09/02/17 11/29/19 Carvedilol [Coreg] 3.125 mg PO AC-BID 09/02/17 11/29/19 Isosorbide Mononitrate ER [Imdur] 30 mg PO DAILY 09/02/17 11/29/19 traZODone HCL [TraZODone HCl] 50 - 100 mg PO HS 08/22/18 11/29/19 Atorvastatin [Lipitor] 80 mg PO DAILY 11/29/19 11/29/19 Ergocalciferol [Vitamin D2] 50,000 unit PO Q7D 11/29/19 11/29/19 Insulin Glargine,Hum.rec.anlog 5 unit SQ HS 11/29/19 11/29/19 [Lantus Solostar] Lisinopril [Zestril] 10 mg PO DAILY 11/29/19 11/29/19 Previous Rx's Medication Instructions Recorded Clopidogrel [Plavix] 75 mg PO DAILY tab 08/15/15 Allergies Allergy/AdvReac Type Severity Reaction Status Date / Time codeine AdvReac Nausea & Verified 11/29/19 16:55 Vomiting Latex, Natural Rubber AdvReac Rash/Hives Verified 11/29/19 16:55 Review of Systems ROS Statement: Those systems with pertinent positive or pertinent negative responses have been documented in the HPI. ROS Other: All systems not noted in ROS Statement are negative. Past Medical History Past Medical History: Cancer Additional Past Medical History / Comment(s): 01-31-15 pancreatitis. 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's lymphoma,l, chronic back pain, gout, diabetes mellitus, bipolar disorder/depression/anxiety, hyperlipidemia, coronary artery disease with previous [place], GERD reflux, chronic smoking, previous history of pancreatitis- etiology is not clear Last Myocardial Infarction Date:: 2014 History of Any Multi-Drug Resistant Organisms: None Reported Past Surgical History: Breast Surgery, Heart Catheterization With Stent Additional Past Surgical History / Comment(s): EGD/CoLONOSCOPY, bone maroow bx- neg, TOTAL OF 3 CARDIAC STENTS Past Anesthesia/Blood Transfusion Reactions: No Reported Reaction Additional Past Anesthesia/Blood Transfusion Reaction / Comment(s): clausterphobia Date of Last Stent Placement:: UNK Past Psychological History: Anxiety, Bipolar, Depression Smoking Status: Current every day smoker Past Alcohol Use History: None Reported Past Drug Use History: Marijuana - Past Family History Father Family Medical History: Diabetes Mellitus, Myocardial Infarction ([place]) Mother Family Medical History: Diabetes Mellitus, Myocardial Infarction ([place]) General Exam - General Exam Comments Initial Comments: Constitutional: NAD, AOX3, Pt has pleasant affect. HEENT: NC/AT, trachea midline, neck supple, no lymphadenopathy. Posterior pharynx non erythematous, without exudates. External ears appear normal, without discharge. Mucous membranes moist. Eyes PERRLA, EOM intact. There is no scleral icterus. No pallor noted. Cardiopulmonary: RRR, no murmurs, rubs or gallops, no JVD noted. Lungs CTAB in anterior and posterior scott. No peripheral edema. Abdominal exam: Abdomen soft and non-distended. Abdomen non-tender to palpation in all 4 quadrants. Bowel sounds active in LLQ. No hepatosplenomegaly. No ecchymosis Neuro: CN II-XII grossly intact. No nuchal rigidity. No raccon eyes, no galvez sign, no hemotympanum. No cervical spinal tenderness. MSK: Left ankle tender lateral medial malleolus, edema or bruising noted. Neurovascularly intact. Placed in sugar tong posterior ankle splint. Neurova scular intact after splint placement. No posterior calf tenderness bilaterally, homans sign negative bilaterally. Posterior tibialis and radial pulse +2 bilaterally. Sensation intact in upper and lower extremities. Full active ROM in upper and lower extremities, 5/5 stregnth. Limitations: no limitations Course Vital Signs 11/29/19 11/29/19 16:02 17:44 Temperature 97.8 F Pulse Rate 67 80 Respiratory 18 18 Rate Blood Pressure 127/73 111/52 O2 Sat by Pulse 100 Oximetry Medical Decision Making - Medical Decision Making 69-year-old female patient past medical history of coronary artery disease status post stent placement from sleep with the complaint of fall. Patient reports that last night she woke in the middle the night with the urge to have diarrhea. Patient was attempting to navigate in the dark towards the bathroom when she slipped and fell, injuring her left ankle and hitting her head. Denies a loss of consciousness. Patient to complaints stated left ankle pain. Denies any other complaints. Patient felt rather stable, afebrile. Physical exam displayed: Left ankle tender lateral medial malleolus, edema or bruising noted. Neurovascularly intact. Plain films displayed trimalleolar ankle fracture. Brain C-spine chest did not display acute process. Case discussed with Dr. Islas vp transportation orthopedics who reviewed films, reccomended splint and will accept admission. Placed in sugar tong, posterior ankle splint. Neurovascular intact after splint placement. Case discussed with Dr. Sharma. - Lab Data Result diagrams: 11/29/19 17:48 11/29/19 17:48 Lab Results 11/29/19 11/29/19 11/29/19 Range/Units 17:44 17:48 17:48 WBC 13.7 H (3.8-10.6) k/uL RBC 3.70 L (3.80-5.40) m/uL Hgb 11.8 (11.4-16.0) gm/dL Hct 35.6 (34.0-46.0) % MCV 96.3 (80.0-100.0) fL MCH 32.0 (25.0-35.0) pg MCHC 33.2 (31.0-37.0) g/dL RDW 12.4 (11.5-15.5) % Plt Count 257 (150-450) k/uL Neutrophils % 88 % Lymphocytes % 8 % Monocytes % 3 % Eosinophils % 0 % Basophils % 0 % Neutrophils # 12.0 H (1.3-7.7) k/uL Lymphocytes # 1.1 (1.0-4.8) k/uL Monocytes # 0.5 (0-1.0) k/uL Eosinophils # 0.0 (0-0.7) k/uL Basophils # 0.0 (0-0.2) k/uL Sodium 131 L (137-145) mmol/L Potassium 4.7 (3.5-5.1) mmol/L Chloride 99 (98-107) mmol/L Carbon Dioxide 23 (22-30) mmol/L Anion Gap 9 mmol/L BUN 21 H (7-17) mg/dL Creatinine 1.08 H (0.52-1.04) mg/dL Est GFR (CKD-EPI)AfAm 60 (>60 ml/min/1.73 sqM) Est GFR (CKD-EPI)NonAf 52 (>60 ml/min/1.73 sqM) Glucose 171 H (74-99) mg/dL POC Glucose (mg/dL) 194 H (75-99) mg/dL POC Glu Client Experience Administrator ID Jose Sarabia Calcium 9.4 (8.4-10.2) mg/dL Total Bilirubin 0.3 (0.2-1.3) mg/dL AST 23 (14-36) U/L ALT 19 (4-34) U/L Alkaline Phosphatase 130 H (38-126) U/L Total Protein 6.4 (6.3-8.2) g/dL Albumin 4.0 (3.5-5.0) g/dL - EKG Data -: EKG Interpreted by Me (and Dr. Sharma ) EKG Comments: Ventricular rate 68,. And for 182, QRS 84, QT/QTc 44/4.9. Normal sinus rhythm, normal EKG, no concern for acute ischemia. Disposition Clinical Impression: Fall, Fracture of ankle, trimalleolar, left, closed Disposition: ADMITTED IP TO THIS HOSP Condition: Serious Is patient prescribed a controlled substance at d/c from ED?: No Referrals: Nancy Chavez MD [Primary Care Provider] - 1-2 days
[2019-11-29 21:14] LABS: INR 0.9 (<1.2); Prothrombin Time 9.6 sec (9.0-12.0)
[2019-11-29] MEDS ORDERED: HYDROmorphone 1 MG/ML 1 ML SYRINGE IVP STA (21:27)
[2019-11-29 22:23] LABS: Glucose,Whole Blood 145 mg/dL (75-99)
[2019-11-29] MEDS ORDERED: SODIUM CHLORIDE 0.9% 1,000 ML IV ONE (22:40)
[2019-11-29] MEDS: SODIUM CHLORIDE 0.9% 1,000 ML IV SCH (22:52)
[2019-11-30] MEDS ORDERED: HEPARIN SODIUM,PORCINE 5,000 UNIT/ML 1 ML VIAL SQ SCH
[2019-11-30 00:49] LABS: Appearance,Urine Clear (Clear); Bilirubin,Urine Negative (Negative); Blood,Urine Negative (Negative); Color,Urine Yellow; Glucose,Urine (UA) Negative (Negative); Ketones,Urine Negative (Negative); Leukocyte Esterase,Urine Negative (Negative); Nitrite,Urine Negative (Negative); PH, Urine 5.5 (5.0-8.0); Protein,Urine Negative (Negative); Specific Gravity,Urine 1.016 (1.001-1.035); Urobilinogen,Urine <2.0 mg/dL (<2.0)
[2019-11-30] MEDS ORDERED: SODIUM CHLORIDE 0.9% 1,000 ML IV ONE (02:58)
[2019-11-30] MEDS: HYDROmorphone 0.5 MG/0.5 ML SYRINGE IVP PRN ×4 (03:43→17:27)
[2019-11-30] MEDS: ONDANSETRON 4 MG/2 ML VIAL IVP PRN ×2 (03:51→22:25)
[2019-11-30] MEDS ORDERED: MORPHINE SULFATE 2 MG/ML SYRINGE IVP STA (06:14)
[2019-11-30] MEDS ORDERED: SODIUM CHLORIDE 0.9% 500 ML 500 ML IV ONE (06:15)
[2019-11-30 07:27] LABS: Basophils % (A) 0 %; Eosinophils % (A) 0 %; HCT 32.4 % (34.0-46.0); HGB 10.5 gm/dL (11.4-16.0); Lymphocytes # (A) 1.3 k/uL (1.0-4.8); Lymphocytes % (A) 16 %; MCH 31.8 pg (25.0-35.0); MCHC 32.3 g/dL (31.0-37.0); MCV 98.4 fL (80.0-100.0); Mean Platelet Volume 6.8; Monocytes # (A) 0.4 k/uL (0-1.0); Monocytes % (A) 5 %; Neutrophils # (A) 6.3 k/uL (1.3-7.7); Neutrophils % (A) 76 %; Platelet Count 220 k/uL (150-450); RBC 3.29 m/uL (3.80-5.40); RDW 12.5 % (11.5-15.5); WBC 8.3 k/uL (3.8-10.6)
[2019-11-30 07:36] LABS: Glucose,Whole Blood 148 mg/dL (75-99)
[2019-11-30] MEDS: INSULIN ASPART (NovoLOG) 100 UNIT/ML VIAL SQ SCH ×4 (07:38→20:16)
[2019-11-30 07:58] LABS: Calcium 8.1 mg/dL (8.4-10.2); Potassium 4.4 mmol/L (3.5-5.1)
--- NOTE | 2019-11-30 08:05 | P.HPOR ---
History of Present Illness H&P Date: 11/30/19 Chief Complaint: Left ankle pain The patient is a 69-year-old female who presents after falling at home 2 nights ago. She is unable to bear weight on the left leg after the fall. Normally she ambulates without assistive devices. She denied loss of consciousness. Review of Systems Constitutional: Reports as per HPI Musculoskeletal: left: ankle pain Past Medical History Past Medical History: Coronary Artery Disease (CAD), Cancer, Diabetes Mellitus, GERD/Reflux, Hyperlipidemia Additional Past Medical History / Comment(s): 01-31-15 pancreatitis. 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's lymphoma,l, chronic back pain, gout, diabetes mellitus, bipolar disorder/depression/anxiety, hyperlipidemia, coronary artery disease with previous [place], GERD reflux, chronic smoking, previous history of pancreatitis- etiology is not clear Last Myocardial Infarction Date:: 2014 History of Any Multi-Drug Resistant Organisms: None Reported Past Surgical History: Breast Surgery, Heart Catheterization With Stent Additional Past Surgical History / Comment(s): EGD/CoLONOSCOPY, bone maroow bx- neg, TOTAL OF 3 CARDIAC STENTS Past Anesthesia/Blood Transfusion Reactions: No Reported Reaction Additional Past Anesthesia/Blood Transfusion Reaction / Comment(s): clausterphobia Date of Last Stent Placement:: UNK Past Psychological History: Anxiety, Bipolar, Depression Additional Psychological History / Comment(s): mood disorder Smoking Status: Current every day smoker Past Alcohol Use History: None Reported Additional Past Alcohol Use History / Comment(s): HAS SMOKED 40 YEARS UP TO 2PPD Past Drug Use History: Marijuana Additional Drug Use History / Comment(s): Pt. states recreational marijuana use "once every couple months" - Past Family History Father Family Medical History: Diabetes Mellitus, Myocardial Infarction ([place]) Mother Family Medical History: Diabetes Mellitus, Myocardial Infarction ([place]) Medications and Allergies Home Medications Medication Instructions Recorded Confirmed Type Clopidogrel [Plavix] 75 mg PO DAILY tab 08/15/15 11/29/19 Rx OXcarbazepine [Trileptal] 300 mg PO BID 06/24/16 11/29/19 History PARoxetine HCL [Paxil] 40 mg PO DAILY 06/24/16 11/29/19 History clonazePAM [KlonoPIN] 1 - 2 mg PO DAILY PRN 07/15/16 11/29/19 History Aspirin EC [Ecotrin Low Dose] 81 mg PO DAILY 09/02/17 11/29/19 History Carvedilol [Coreg] 3.125 mg PO AC-BID 09/02/17 11/29/19 History Isosorbide Mononitrate ER [Imdur] 30 mg PO DAILY 09/02/17 11/29/19 History traZODone HCL [TraZODone HCl] 50 - 100 mg PO HS 08/22/18 11/29/19 History Atorvastatin [Lipitor] 80 mg PO DAILY 11/29/19 11/29/19 History Ergocalciferol [Vitamin D2] 50,000 unit PO Q7D 11/29/19 11/29/19 History Insulin Glargine,Hum.rec.anlog 5 unit SQ HS 11/29/19 11/29/19 History [Lantus Solostar] Lisinopril [Zestril] 10 mg PO DAILY 11/29/19 11/29/19 History Allergies Allergy/AdvReac Type Severity Reaction Status Date / Time codeine AdvReac Nausea & Verified 11/29/19 16:55 Vomiting Latex, Natural Rubber AdvReac Rash/Hives Verified 11/29/19 16:55 Physical Examination - Ankle & Foot left Ankle appearance: swelling (Moderate), other (Skin intact) Tenderness with palpation: medial ankle, lateral ankle Ankle pain worse with weight bearing: Yes Results Nontender bilateral upper extremities Nontender cervicothoracic lumbar spine with no step off Pelvis stable to external rotation stress Painless logroll bilateral hips Nontender both knees Left ankle moderate medial and lateral swelling with intact skin Nontender left mid and forefoot Neurovascular exam intact left lower extremity - Labs Labs: Abnormal Lab Results - Last 24 Hours (Table) 11/29/19 11/29/19 11/29/19 Range/Units 17:44 17:48 17:48 WBC 13.7 H (3.8-10.6) k/uL RBC 3.70 L (3.80-5.40) m/uL Hgb (11.4-16.0) gm/dL Hct (34.0-46.0) % Neutrophils # 12.0 H (1.3-7.7) k/uL Sodium 131 L (137-145) mmol/L Chloride (98-107) mmol/L Carbon Dioxide (22-30) mmol/L BUN 21 H (7-17) mg/dL Creatinine 1.08 H (0.52-1.04) mg/dL Glucose 171 H (74-99) mg/dL POC Glucose (mg/dL) 194 H (75-99) mg/dL Calcium (8.4-10.2) mg/dL Alkaline Phosphatase 130 H (38-126) U/L 11/29/19 11/30/19 11/30/19 Range/Units 22:21 07:04 07:04 WBC (3.8-10.6) k/uL RBC 3.29 L (3.80-5.40) m/uL Hgb 10.5 L (11.4-16.0) gm/dL Hct 32.4 L (34.0-46.0) % Neutrophils # (1.3-7.7) k/uL Sodium (137-145) mmol/L Chloride 113 H (98-107) mmol/L Carbon Dioxide 21 L (22-30) mmol/L BUN (7-17) mg/dL Creatinine (0.52-1.04) mg/dL Glucose 132 H (74-99) mg/dL POC Glucose (mg/dL) 145 H (75-99) mg/dL Calcium 8.1 L (8.4-10.2) mg/dL Alkaline Phosphatase (38-126) U/L 11/30/19 Range/Units 07:33 WBC (3.8-10.6) k/uL RBC (3.80-5.40) m/uL Hgb (11.4-16.0) gm/dL Hct (34.0-46.0) % Neutrophils # (1.3-7.7) k/uL Sodium (137-145) mmol/L Chloride (98-107) mmol/L Carbon Dioxide (22-30) mmol/L BUN (7-17) mg/dL Creatinine (0.52-1.04) mg/dL Glucose (74-99) mg/dL POC Glucose (mg/dL) 148 H (75-99) mg/dL Calcium (8.4-10.2) mg/dL Alkaline Phosphatase (38-126) U/L H & H 11/29/19 11/30/19 Range/Units 17:48 07:04 Hgb 11.8 10.5 L (11.4-16.0) gm/dL Hct 35.6 32.4 L (34.0-46.0) % Coagulation 11/29/19 Range/Units 20:46 INR 0.9 (<1.2) Result Diagrams: 11/30/19 07:04 11/30/19 07:04 - Diagnostic results Ankle/Foot x-ray: image reviewed (Displaced left trimalleolar ankle fracture) Assessment and Plan Assessment: Displaced left trimalleolar ankle fracture History of heart disease on anticoagulation Insulin-dependent diabetes Bipolar disorder Recent diagnosis possible breast cancer Plan: I talked to the patient with regarding her condition along with treatment options and at this point recommend proceeding with surgical intervention for her left ankle. We will plan to proceed with open reduction and internal fixation. We will likely reinstitute Plavix postoperatively. Risks and benefits were discussed at length in layman's terms. Time with Patient: Greater than 30
[2019-11-30] MEDS: OXcarbazepine 300 MG TAB PO SCH ×2 (08:24→20:01)
[2019-11-30] MEDS: PARoxetine 20 MG TAB PO SCH (08:24)
[2019-11-30] MEDS: ATORVASTATIN 80 MG TAB PO SCH (08:24)
--- NOTE | 2019-11-30 11:46 | P.CONS ---
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 Ana Pelayo home she supposed to see today for plan of therapy. Patient presents with fall and left ankle pain. Patient fell on Wednesday night while she was sleeping in the middle of night she felt lower abdominal cramps and urge for bowel movement, on her way to the restroom she had run the bowel movement where she slipped and fell on her side with no loss of consciousness or dizziness as per patient, patient remained on the floor for half an hour as she slept , she woke up and climbed to her bed and with the help of her friend she came to emergency room Patient denies history of loose bowel movement or abdominal pain prior to this episode, she denies current diarrhea or abdominal pain and her abdominal examination is soft without tenderness. No nausea vomiting Patient she has history of triple-vessel disease status post stents 3 in 2016. she's also complaining of from chest pain on and off, last time she had chest pain was about 2 days ago, the patient is central, mild fat like burning and stretchy and associated with mild dyspnea She is a smoker about 1 pack per day and she has chronic cough with little phlegm however she is not on home oxygen, and she does not use CPAP/BiPAP She denies depression or suicidal ideation patient is afebrile, blood pressure overnight was on the low side 84/48 and she received more than 2 L of normal saline boluses as well as normal slanted 100 mL per hour, currently blood pressure 108/58, she saturating 100% normal male. Labs reviewed showing WBC of 8.3K, hemoglobin 10.5, platelets normal.INR 0.9, BMP is unremarkable. EKG showing normal sinus rhythm at [address]-T changes except for mild biphasic T wave in lead II AND III CT of the head and neck, cervical spine: No acute process or fracture by radiologist, chest x-ray: No acute process, chronic parenchymal changes. Left ankle x-ray showing acute displaced trimalleolar fracture with mortise disruption in the emergency room patient was received several doses of hydromorphone as well as on the medical floor, also she was started on morphine. coronavirus tests pending Review of Systems CONSTITUTIONAL: No fever, no malaise, no fatigue. HEENT: No recent visual problems or hearing problems. Denied any sore throat. CARDIOVASCULAR: No orthopnea, PND, no palpitations, no syncope. PULMONARY: No shortness of breath, no cough, no hemoptysis. GASTROINTESTINAL: No diarrhea, no nausea, no vomiting, no abdominal pain. Normoactive bowel sounds. NEUROLOGICAL: No headaches, no weakness, no numbness. HEMATOLOGICAL: Denies any bleeding or petechiae. GENITOURINARY: Denies any burning micturition, frequency, or urgency. ENDOCRINE: Denies any polyuria or polydipsia. Past Medical History Past Medical History: Coronary Artery Disease (CAD), Cancer, Diabetes Mellitus, GERD/Reflux, Hyperlipidemia Additional Past Medical History / Comment(s): 01-31-15 pancreatitis. 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's lymphoma,l, chronic back pain, gout, diabetes mellitus, bipolar disorder/depression/anxiety, hyperlipidemia, coronary artery disease with previous [place], GERD reflux, chronic smoking, previous history of pancreatitis- etiology is not clear Last Myocardial Infarction Date:: 2014 History of Any Multi-Drug Resistant Organisms: None Reported Past Surgical History: Breast Surgery, Heart Catheterization With Stent Additional Past Surgical History / Comment(s): EGD/CoLONOSCOPY, bone maroow bx- neg, TOTAL OF 3 CARDIAC STENTS Past Anesthesia/Blood Transfusion Reactions: No Reported Reaction Additional Past Anesthesia/Blood Transfusion Reaction / Comm: clausterphobia Date of Last Stent Placement:: UNK Past Psychological History: Anxiety, Bipolar, Depression Additional Psychological History / Comment(s): mood disorder Smoking Status: Current every day smoker Past Alcohol Use History: None Reported Additional Past Alcohol Use History / Comment(s): HAS SMOKED 40 YEARS UP TO 2PPD Past Drug Use History: Marijuana Additional Drug Use History / Comment(s): Pt. states recreational marijuana use "once every couple months" - Past Family History Father Family Medical History: Diabetes Mellitus, Myocardial Infarction ([place]) Mother Family Medical History: Diabetes Mellitus, Myocardial Infarction ([place]) Medications and Allergies Home Medications Medication Instructions Recorded Confirmed Type Clopidogrel [Plavix] 75 mg PO DAILY tab 08/15/15 11/29/19 Rx OXcarbazepine [Trileptal] 300 mg PO BID 06/24/16 11/29/19 History PARoxetine HCL [Paxil] 40 mg PO DAILY 06/24/16 11/29/19 History clonazePAM [KlonoPIN] 1 - 2 mg PO DAILY PRN 07/15/16 11/29/19 History Aspirin EC [Ecotrin Low Dose] 81 mg PO DAILY 09/02/17 11/29/19 History Carvedilol [Coreg] 3.125 mg PO AC-BID 09/02/17 11/29/19 History Isosorbide Mononitrate ER [Imdur] 30 mg PO DAILY 09/02/17 11/29/19 History traZODone HCL [TraZODone HCl] 50 - 100 mg PO HS 08/22/18 11/29/19 History Atorvastatin [Lipitor] 80 mg PO DAILY 11/29/19 11/29/19 History Ergocalciferol [Vitamin D2] 50,000 unit PO Q7D 11/29/19 11/29/19 History Insulin Glargine,Hum.rec.anlog 5 unit SQ HS 11/29/19 11/29/19 History [Lantus Solostar] Lisinopril [Zestril] 10 mg PO DAILY 11/29/19 11/29/19 History Allergies Allergy/AdvReac Type Severity Reaction Status Date / Time codeine AdvReac Nausea & Verified 11/29/19 16:55 Vomiting Latex, Natural Rubber AdvReac Rash/Hives Verified 11/29/19 16:55 Physical Exam Vitals: Vital Signs Temp Pulse Pulse Resp BP BP Pulse Ox 11/30/19 07:00 98.6 F 75 16 108/58 100 11/30/19 06:36 101/56 11/30/19 05:45 98.6 F 75 18 90/56 99 11/30/19 03:44 69 112/61 11/30/19 03:10 15 11/30/19 02:30 76 96/56 11/30/19 00:30 98.4 F 65 18 99/60 99 11/30/19 00:00 15 11/29/19 23:16 71 15 112/49 99 11/29/19 22:30 66 84/48 11/29/19 21:54 98.9 F 72 15 126/77 97 11/29/19 20:31 68 17 111/52 94 L 11/29/19 17:44 80 18 111/52 11/29/19 16:02 97.8 F 67 18 127/73 100 Intake and Output 11/29/19 11/30/19 11/30/19 22:59 06:59 14:59 Intake Total 2800 Balance 2800 Intake: Intake, IV Titration 2800 Amount Sodium Chloride 0.9% 1, 300 000 ml @ 100 mls/hr IV . Q10H ADAN Rx#:[id number] Sodium Chloride 0.9% 1, 1000 000 ml @ 999 mls/hr IV . Q1H1M ONE Rx#:[id number] Sodium Chloride 0.9% 1, 1000 000 ml @ 999 mls/hr IV . Q1H1M ONE Rx#:[id number] Sodium Chloride 0.9% 500 500 ml 500 ml @ 999 mls/hr IV .Q31M ONE Rx#:[id number] Other: Voiding Method Bedpan # Voids 4 Weight 73.573 kg GENERAL: The patient is alert and oriented x3, not in any acute distress. Well developed, well nourished. HEENT: Pupils are round and equally reacting to light. EOMI. No scleral icterus. No conjunctival pallor. Normocephalic, atraumatic. No pharyngeal erythema. No thyromegaly. CARDIOVASCULAR: S1 and S2 present. No murmurs, rubs, or gallops. PULMONARY: Chest is clear to auscultation, no wheezing or crackles. ABDOMEN: Soft, nontender, nondistended, normoactive bowel sounds. No palpable organomegaly. -MUSCULOSKELETAL: No joint swelling or deformity. bruise of the left arm. Left ankle is in cast and painful to the patient EXTREMITIES: No cyanosis, clubbing, or pedal edema. NEUROLOGICAL: Gross neurological examination did not reveal any focal deficits. SKIN: No rashes. No petechiae breast exam: Deferred Results CBC & Chem 7: 11/30/19 07:04 11/30/19 07:04 Labs: Abnormal Lab Results - Last 24 Hours (Table) 11/29/19 11/29/19 11/29/19 Range/Units 17:44 17:48 17:48 WBC 13.7 H (3.8-10.6) k/uL RBC 3.70 L (3.80-5.40) m/uL Hgb (11.4-16.0) gm/dL Hct (34.0-46.0) % Neutrophils # 12.0 H (1.3-7.7) k/uL Sodium 131 L (137-145) mmol/L Chloride (98-107) mmol/L Carbon Dioxide (22-30) mmol/L BUN 21 H (7-17) mg/dL Creatinine 1.08 H (0.52-1.04) mg/dL Glucose 171 H (74-99) mg/dL POC Glucose (mg/dL) 194 H (75-99) mg/dL Calcium (8.4-10.2) mg/dL Alkaline Phosphatase 130 H (38-126) U/L 11/29/19 11/30/19 11/30/19 Range/Units 22:21 07:04 07:04 WBC (3.8-10.6) k/uL RBC 3.29 L (3.80-5.40) m/uL Hgb 10.5 L (11.4-16.0) gm/dL Hct 32.4 L (34.0-46.0) % Neutrophils # (1.3-7.7) k/uL Sodium (137-145) mmol/L Chloride 113 H (98-107) mmol/L Carbon Dioxide 21 L (22-30) mmol/L BUN (7-17) mg/dL Creatinine (0.52-1.04) mg/dL Glucose 132 H (74-99) mg/dL POC Glucose (mg/dL) 145 H (75-99) mg/dL Calcium 8.1 L (8.4-10.2) mg/dL Alkaline Phosphatase (38-126) U/L 11/30/19 Range/Units 07:33 WBC (3.8-10.6) k/uL RBC (3.80-5.40) m/uL Hgb (11.4-16.0) gm/dL Hct (34.0-46.0) % Neutrophils # (1.3-7.7) k/uL Sodium (137-145) mmol/L Chloride (98-107) mmol/L Carbon Dioxide (22-30) mmol/L BUN (7-17) mg/dL Creatinine (0.52-1.04) mg/dL Glucose (74-99) mg/dL POC Glucose (mg/dL) 148 H (75-99) mg/dL Calcium (8.4-10.2) mg/dL Alkaline Phosphatase (38-126) U/L Assessment and Plan Assessment: fall after she slipped on the floor, secondary to crampy bowel movement and one- time loose bowel movement left ankle fracture, displaced trimalleolar hypotension, currently blood pressure is betteras per patient chest pain on and off, rule out cardiac causes.currently she is chest pain-free bruise of the left arm history of triple coronary artery disease status post stent placement Diabetes mellitus Hyperlipidemia Nicotine dependence 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 Connective tissue migraine Plan: this is a pleasant 69 years old female who presents with fall and left ankle fracture. Orthopedic team is planning to do surgery. Patient was hypertensive and her blood pressures improved with normal saline, we will keep normal saline. Pain management as per primary team. Also call cardiology consult for pr eoperative assessment and risks of surgery, and For Her Chest Pain Although She Is Chest Pain-Free Now.check x-ray of the left humerus Labs and medication were reviewed.. Continue same treatment. Continue with symptomatic treatment. Resume home medication. Monitor lytes and vitals. DVT and GI prophylaxis. Further recommendations of the clinical course of the patient GI prophylaxis: Pepcid Prognosis is guarded discussed with staff thank you for consulting us, We will follow up with you
[2019-11-30 12:06] LABS: Glucose,Whole Blood 139 mg/dL (75-99)
--- NOTE | 2019-11-30 12:39 | XR ---
EXAMINATION TYPE: XR humerus LT DATE OF EXAM: 11/30/2019 CLINICAL HISTORY: Fall injury with pain and bruising. TECHNIQUE: Two views of the left humerus are obtained. COMPARISON: Left shoulder x-ray June 21, 2015 FINDINGS: Osseous structures redemonstrated demineralized. There is no acute fracture or dislocation seen in the left humerus. The left shoulder and elbow joints appear within normal limits. The overl anamaria soft tissue appears within normal limits. IMPRESSION: No acute fracture or dislocation is evident in the left humerus.
[2019-11-30] MEDS ORDERED: LACTATED RINGERS 1,000 ML IV ONE ×2 (12:40→15:02)
--- NOTE | 2019-11-30 12:54 | P.CRDCN ---
History of Present Illness History of present illness: HISTORY OF PRESENTING ILLNESS This is a pleasant 69-year-old female past medical history significant for coronary artery disease, diabetes mellitus, hypertension, dyslipidemia and chronic nicotine dependence. She follows in the office with Dr. Muro. We have been asked to see in consultation for preoperative evaluation. She woke up last night to use the bathroom and while rushing she tripped and fell. Diagnostic imaging reveals left trimalleolar ankle fracture. She has been evaluated by orthopedics and they plan for surgical intervention this afternoon. She is seen and examined laying flat resting comfortably in bed in no acute distress. She complains only of pain in the left ankle and foot. She denies chest pain, shortness of breath, dizziness or palpitations. She denies LOC or syncope associated with her fall, only that she tripped and fell. Most recent cardiac catheterization was 2015. In July she underwent successful PCI of the circumflex artery. Repeat cath in June 2016 revealed patent stent in the circumflex, chronic total occlusion of the RCA and mild to moderate disease of the proximal LAD. DIAGNOSTICS EKG reveals sinus mechanism with nonspecific ST abnormalities inferiorly.. Chest xray negative for an acute cardiopulmonary process. Laboratory reviewed, WBC 8.3, hemoglobin 10.5, platelets 220, sodium 137, potassium 4.4, creatinine 0.87 and troponin negative 1. Current cardiac medications include aspirin 81 mg daily, Plavix 75 mg daily, a torvastatin 80 mg daily, carvedilol 3.125 mg twice a day, Imdur 30 mg daily and lisinopril 10 mg daily. Most recent echocardiogram obtained in the office October 2018 revealed preserved LV systolic function with EF 50%. Most recent stress test in the office October 2018 revealed a predominantly fixed defect with no reversibility. REVIEW OF SYSTEMS At the time of my exam: CONSTITUTIONAL: Denies fever or chills. CARDIOVASCULAR: Denies chest pain, shortness of breath, orthopnea, PND or palpitations. RESPIRATORY: Denies cough. GASTROINTESTINAL: Denies abdominal pain, diarrhea, constipation, nausea or vomiting. MUSCULOSKELETAL: Denies myalgias. NEUROLOGIC: Denies numbness, tingling or weakness. ENDOCRINE: Denies fatigue, weight change, polydipsia or polyurina. GENITOURINARY: Denies burning, hematuria or urgency with micturation. HEMATOLOGIC: Denies history of anemia or bleeding. PHYSICAL EXAMINATION Blood pressure 108/58 heart rate 75 afebrile and maintaining oxygen saturation on nasal cannula. CONSTITUTIONAL: No apparent distress. HEENT: Head is normocephalic. Pupils are equal, round. Sclerae anicteric. Mucous membranes of the mouth are moist. No JVD. No carotid bruit. CHEST EXAMINATION: Lungs are clear to auscultation. No chest wall tenderness is noted on palpation or with deep breathing. HEART EXAMINATION: Regular rate and rhythm. S1, S2 heard. No murmurs, gallops or rub. ABDOMEN: Soft, nontender. Positive bowel sounds. EXTREMITIES: 2+ peripheral pulses, no lower extremity edema on the right, caste in place on the left lower extremity and no calf tenderness. NEUROLOGIC EXAMINATION: Patient is awake, alert and oriented x3. ASSESSMENT Fall, no syncope or loss of consciousness Trimalleolar ankle fracture History of coronary artery disease, most recent PCI 2015 Hypertension Dyslipidemia Diabetes mellitus Chronic nicotine dependence PLAN Clinically and hemodynamically the patient is stable. She has no symptoms suggestive of angina or fluid overload. She has moderate risk to undergo surgical intervention secondary to underlying history of coronary artery disea se. Plavix can be discontinued indefinitely as her PCI was 2016. Resume aspirin, atorvastatin, carvedilol, Imdur and lisinopril as previously ordered. Recommend cautious fluid administration and optimal blood pressure control intraoperatively. We will repeat an echocardiogram in the morning. Smoking cessation recommended. Thank you kindly for this consultation. Nurse Practitioner note has been reviewed, I agree with a documented findings and plan of care. Patient was seen and examined. Past Medical History Past Medical History: Coronary Artery Disease (CAD), Cancer, Diabetes Mellitus, GERD/Reflux, Hyperlipidemia Additional Past Medical History / Comment(s): 01-31-15 pancreatitis. 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's lymphoma,l, chronic back pain, gout, diabetes mellitus, bipolar disorder/depression/anxiety, hyperlipidemia, coronary artery disease with previous [place], GERD reflux, chronic smoking, previous history of pancreatitis- etiology is not clear Last Myocardial Infarction Date:: 2014 History of Any Multi-Drug Resistant Organisms: None Reported Past Surgical History: Breast Surgery, Heart Catheterization With Stent Additional Past Surgical History / Comment(s): EGD/CoLONOSCOPY, bone maroow bx- neg, TOTAL OF 3 CARDIAC STENTS Past Anesthesia/Blood Transfusion Reactions: No Reported Reaction Additional Past Anesthesia/Blood Transfusion Reaction / Comment(s): clausterphobia Date of Last Stent Placement:: UNK Past Psychological History: Anxiety, Bipolar, Depression Additional Psychological History / Comment(s): mood disorder Smoking Status: Current every day smoker Past Alcohol Use History: None Reported Additional Past Alcohol Use History / Comment(s): HAS SMOKED 40 YEARS UP TO 2PPD Past Drug Use History: Marijuana Additional Drug Use History / Comment(s): Pt. states recreational marijuana use "once every couple months" - Past Family History Father Family Medical History: Diabetes Mellitus, Myocardial Infarction ([place]) Mother Family Medical History: Diabetes Mellitus, Myocardial Infarction ([place]) Medications and Allergies Home Medications Medication Instructions Recorded Confirmed Type Clopidogrel [Plavix] 75 mg PO DAILY tab 08/15/15 11/29/19 Rx OXcarbazepine [Trileptal] 300 mg PO BID 06/24/16 11/29/19 History PARoxetine HCL [Paxil] 40 mg PO DAILY 06/24/16 11/29/19 History clonazePAM [KlonoPIN] 1 - 2 mg PO DAILY PRN 07/15/16 11/29/19 History Aspirin EC [Ecotrin Low Dose] 81 mg PO DAILY 09/02/17 11/29/19 History Carvedilol [Coreg] 3.125 mg PO AC-BID 09/02/17 11/29/19 History Isosorbide Mononitrate ER [Imdur] 30 mg PO DAILY 09/02/17 11/29/19 History traZODone HCL [TraZODone HCl] 50 - 100 mg PO HS 08/22/18 11/29/19 History Atorvastatin [Lipitor] 80 mg PO DAILY 11/29/19 11/29/19 History Ergocalciferol [Vitamin D2] 50,000 unit PO Q7D 11/29/19 11/29/19 History Insulin Glargine,Hum.rec.anlog 5 unit SQ HS 11/29/19 11/29/19 History [Lantus Solostar] Lisinopril [Zestril] 10 mg PO DAILY 11/29/19 11/29/19 History Allergies Allergy/AdvReac Type Severity Reaction Status Date / Time codeine AdvReac Nausea & Verified 11/29/19 16:55 Vomiting Latex, Natural Rubber AdvReac Rash/Hives Verified 11/29/19 16:55 Physical Exam Vitals: Vital Signs Temp Pulse Pulse Resp BP BP Pulse Ox 11/30/19 07:00 98.6 F 75 16 108/58 100 11/30/19 06:36 101/56 11/30/19 05:45 98.6 F 75 18 90/56 99 11/30/19 03:44 69 112/61 11/30/19 03:10 15 11/30/19 02:30 76 96/56 11/30/19 00:30 98.4 F 65 18 99/60 99 11/30/19 00:00 15 11/29/19 23:16 71 15 112/49 99 11/29/19 22:30 66 84/48 11/29/19 21:54 98.9 F 72 15 126/77 97 11/29/19 20:31 68 17 111/52 94 L 11/29/19 17:44 80 18 111/52 11/29/19 16:02 97.8 F 67 18 127/73 100 Intake and Output 11/29/19 11/30/19 11/30/19 22:59 06:59 14:59 Intake Total 2800 Balance 2800 Intake: Intake, IV Titration 2800 Amount Sodium Chloride 0.9% 1, 300 000 ml @ 100 mls/hr IV . Q10H ADAN Rx#:[id number] Sodium Chloride 0.9% 1, 1000 000 ml @ 999 mls/hr IV . Q1H1M ONE Rx#:[id number] Sodium Chloride 0.9% 1, 1000 000 ml @ 999 mls/hr IV . Q1H1M ONE Rx#:[id number] Sodium Chloride 0.9% 500 500 ml 500 ml @ 999 mls/hr IV .Q31M ONE Rx#:[id number] Other: Voiding Method Bedpan # Voids 4 Weight 73.573 kg Results 11/30/19 07:04 11/30/19 07:04 Cardiac Enzymes 11/29/19 11/30/19 Range/Units 17:48 07:04 AST 23 (14-36) U/L Troponin I <0.012 (0.000-0.034) ng/mL Coagulation 11/29/19 Range/Units 20:46 PT 9.6 (9.0-12.0) sec CBC 11/29/19 11/30/19 Range/Units 17:48 07:04 WBC 13.7 H 8.3 (3.8-10.6) k/uL RBC 3.70 L 3.29 L (3.80-5.40) m/uL Hgb 11.8 10.5 L (11.4-16.0) gm/dL Hct 35.6 32.4 L (34.0-46.0) % Plt Count 257 220 (150-450) k/uL Comprehensive Metabolic Panel 11/29/19 11/30/19 Range/Units 17:48 07:04 Sodium 131 L 137 (137-145) mmol/L Potassium 4.7 4.4 (3.5-5.1) mmol/L Chloride 99 113 H (98-107) mmol/L Carbon Dioxide 23 21 L (22-30) mmol/L BUN 21 H 15 (7-17) mg/dL Creatinine 1.08 H 0.87 (0.52-1.04) mg/dL Glucose 171 H 132 H (74-99) mg/dL Calcium 9.4 8.1 L (8.4-10.2) mg/dL AST 23 (14-36) U/L ALT 19 (4-34) U/L Alkaline Phosphatase 130 H (38-126) U/L Total Protein 6.4 (6.3-8.2) g/dL Albumin 4.0 (3.5-5.0) g/dL Current Medications Generic Name Dose Route Start Last Admin Trade Name Freq PRN Reason Stop Dose Admin Atorvastatin Calcium 80 mg 11/30/19 09:00 11/30/19 08:24 Lipitor PO Not Given DAILY ADAN Famotidine 20 mg 11/30/19 21:00 Pepcid IV Q24H ADAN Hydromorphone HCl 0.5 mg 11/30/19 11:26 11/30/19 11:39 Dilaudid IVP 0.5 mg Q4HR PRN Administration Pain Sodium Chloride 1,000 mls @ 100 mls/hr 11/29/19 22:45 11/29/19 22:52 Saline 0.9% IV 100 mls/hr .Q10H ADAN Administration Insulin Aspart 0 unit 11/30/19 07:30 11/30/19 07:38 Novolog SQ Not Given ACHS ADAN Protocol Naloxone HCl 0.2 mg 11/29/19 19:07 Narcan IV Q2M PRN Opioid Reversal Ondansetron HCl 4 mg 11/29/19 22:42 11/30/19 03:51 Zofran IVP 4 mg Q6HR PRN Administration Nausea And Vomiting Oxcarbazepine 300 mg 11/30/19 09:00 11/30/19 08:24 Trileptal PO Not Given BID ADAN Paroxetine HCl 40 mg 11/30/19 09:00 11/30/19 08:24 Paxil PO Not Given DAILY [facility] Intake and Output 11/29/19 11/30/19 11/30/19 22:59 06:59 14:59 Intake Total 2800 Balance 2800 Intake: Intake, IV Titration 2800 Amount Sodium Chloride 0.9% 1, 300 000 ml @ 100 mls/hr IV . Q10H ADAN Rx#:[id number] Sodium Chloride 0.9% 1, 1000 000 ml @ 999 mls/hr IV . Q1H1M ONE Rx#:[id number] Sodium Chloride 0.9% 1, 1000 000 ml @ 999 mls/hr IV . Q1H1M ONE Rx#:[id number] Sodium Chloride 0.9% 500 500 ml 500 ml @ 999 mls/hr IV .Q31M ONE Rx#:[id number] Other: Voiding Method Bedpan # Voids 4 Weight 73.573 kg 11/30/19 07:04 11/30/19 07:04
[2019-11-30] MEDS ORDERED: fentaNYL (PF) 50 MCG/ML 2 ML AMP IV ONE ×2 (13:10)
[2019-11-30] MEDS ORDERED: MIDAZOLAM 2 MG/2 ML VIAL ONE (13:49)
[2019-11-30] MEDS ORDERED: fentaNYL (PF) 50 MCG/ML 2 ML AMP ONE (13:49)
[2019-11-30] MEDS ORDERED: SUCCINYLCHOLINE CHLORIDE 100 MG/5 ML SYR IV ONE (13:49)
[2019-11-30] MEDS ORDERED: PROPOFOL 10 MG/ML 20 ML VIAL IV ONE (13:49)
[2019-11-30] MEDS ORDERED: ePHEDrine SULFATE/0.9% NACL/PF 50 MG/5 ML SYRINGE IV ONE (13:49)
[2019-11-30] MEDS ORDERED: LIDOCAINE 1% INJ 10MG/ML (20 ML MDV) ONE (13:49)
[2019-11-30] MEDS ORDERED: SODIUM CHLORIDE 0.9% 100 ML with ceFAZolin 2,000 MG IV ONE ×2 (14:00)
--- NOTE | 2019-11-30 15:06 | FL ---
EXAMINATION TYPE: FL guidance operating room, XR ankle limited LT DATE OF EXAM: 11/30/2019 CLINICAL HISTORY: Left ankle fracture. TECHNIQUE: Fluoroscopy. Limited intraoperative views left ankle. COMPARISON: Left ankle x-ray from yesterday.. FINDINGS: Fluoroscopic guidance was provided during open reduction internal fixation procedure perfo rmed by Dr. Islas. A total of 8 seconds of fluoroscopic time was utilized during the procedure and 3 spot fluoroscopic intraoperative images are was acquired. Images acquired show placement of 2 fixating screws through displaced medial malleolar fracture and l ateral fixating plate through a displaced lateral malleolus fracture. Improved alignment is seen afte r reduction and fixation. IMPRESSION: As Above.
--- NOTE | 2019-11-30 15:34 | P.OP ---
Date of Procedure: 11/30/19 Preoperative Diagnosis: Displaced left trimalleolar ankle fracture Postoperative Diagnosis: Same Procedure(s) Performed: Open reduction and internal fixation left trimalleolar ankle fracture Implants: Arthrex 6-hole one third tubular plate, appropriate length screws Anesthesia: MELINA Surgeon: Renard Islas Fighting Vehicle Infantryman #1: Javon Gunderson Estimated Blood Loss (ml): 10 Pathology: none sent Condition: stable Disposition: PACU Indications for Procedure: The patient's a 69-year-old female who presents with a closed left trimalleolar ankle fracture/dislocation status post recent fall. A discussion of the risks and benefits of operative intervention was made with patient. She opted to proceed. Specific risks to include infection, neurovascular injury, development of blood clots, possible development of nonunion/malunion, possible post medical osteoarthrosis, possible need for subsequent procedures was discussed. Informed consent was obtained. Operative Findings: As below Description of Procedure: The patient was brought to the operating room, and after induction of general anesthesia the left lower extremity was prepped and draped in normal fashion. The tourniquet was inflated to 270 mmHg. A 7 cm incision was then made along the posterior lateral border of the left fibula. Skin was incised sharply. Subcutaneous tissues were divided bluntly. Electrocautery was used for hemostasis. The fracture site was identified and cleaned of clot and debris. It was provisionally reduced with a reduction clamp. A 6-hole one third tubular plate was then placed after appropriate contouring. This was attached proximally with 3.5 mm cortical screws the appropriate length and distally with 4.0 millimeter cancellus screws the appropriate length. Good purchase was obtained. This was done with the aid of fluoroscopy. Attention was then paid towards fixation the medial malleolar fragment. A 4 cm incision was made along the medial malleolus. Skin was incised sharply. Subcu tissues were divided bluntly. The fracture site was identified and cleaned of clot and debris. The medial talar dome was inspected. The periosteum was elevated. The fracture was then reduced. 2 guidewires were then placed in parallel fashion. This is verified with fluoroscopy. A cannulated drill was used to appropriate depth. 2 partially-threaded cannulated 4.0 mm x 44 mm screws were then inserted over the guidewires. Good purchase was obtained. There is good compression at the fracture site. Final fluoroscopic views to include AP lateral and mortise views showed adequate reduction of the medial and lateral malleolar fragments and the ankle mortise. The posterior malleolar fragment was well aligned and did not require additional fixation. The wounds were irrigated normal saline. The subcutaneous tissues reapproximated interrupted 2-0 Vicryl sutures. Skin was reapproximated with 3-0 subcuticular Prolene suture. Steri-Strips were applied. A sterile dressing was applied in addition to a bulky Decker splint. The tourniquet was deflated at approximately 1 hour total tourniquet time. The patient was awoken from general anesthesia and transferred to recovery room in good condition. Blood loss was estimated 10 mL. No complications were incurred. Sponge and needle counts were correct at the end the case. Zohaib LUND assisted during the major component of the case to include exposure, fracture reduction, implant placement, closure, and splint placement.
[2019-11-30 15:39] LABS: Glucose,Whole Blood 172 mg/dL (75-99)
[2019-11-30 17:09] LABS: Glucose,Whole Blood 162 mg/dL (75-99)
[2019-11-30] MEDS: CARVEDILOL 3.125 MG TAB PO SCH (17:30)
[2019-11-30] MEDS: SODIUM CHLORIDE 0.9% 1,000 ML IV SCH ×2 (18:59→19:00)
[2019-11-30] MEDS ORDERED: ACETAMINOPHEN TAB 325 MG TAB PO PRN (19:51)
[2019-11-30] MEDS: traMADol 50 MG TAB PO SCH (19:58)
[2019-11-30] MEDS: FAMOTIDINE 20 MG/2 ML VIAL IV SCH (19:59)
[2019-11-30 20:16] LABS: Glucose,Whole Blood 130 mg/dL (75-99)
[2019-11-30] MEDS: HYDROmorphone 1 MG/ML 1 ML SYRINGE IVP PRN (21:26)
[2019-11-30] MEDS: HYDROcodone/APAP 5-325MG 1 EACH TAB PO PRN (22:25)
[2019-12-01] MEDS: HYDROmorphone 1 MG/ML 1 ML SYRINGE IVP PRN ×2 (01:25→07:02)
[2019-12-01] MEDS: SODIUM CHLORIDE 0.9% 1,000 ML IV SCH ×3 (04:35→22:00)
[2019-12-01] MEDS: HYDROcodone/APAP 5-325MG 1 EACH TAB PO PRN (04:35)
[2019-12-01] MEDS: ONDANSETRON 4 MG/2 ML VIAL IVP PRN ×2 (04:37→11:06)
[2019-12-01] MEDS: CARVEDILOL 3.125 MG TAB PO SCH (07:02)
[2019-12-01 07:25] LABS: Glucose,Whole Blood 174 mg/dL (75-99)
[2019-12-01] MEDS: INSULIN ASPART (NovoLOG) 100 UNIT/ML VIAL SQ SCH ×4 (07:44→21:52)
[2019-12-01] MEDS: ATORVASTATIN 80 MG TAB PO SCH (07:45)
[2019-12-01] MEDS: ISOSORBIDE MONONITRATE ER 30 MG TAB.ER.24H PO SCH (07:45)
[2019-12-01] MEDS: LISINOPRIL 10 MG TAB PO SCH (07:45)
[2019-12-01] MEDS: OXcarbazepine 300 MG TAB PO SCH ×2 (07:46→21:08)
[2019-12-01] MEDS: PARoxetine 20 MG TAB PO SCH (07:46)
[2019-12-01] MEDS: traMADol 50 MG TAB PO SCH ×4 (07:46→21:58)
[2019-12-01] MEDS ORDERED: ASPIRIN 81 MG PO SCH (09:00)
[2019-12-01] MEDS ORDERED: CARVEDILOL 3.125 MG TAB PO STA (10:39)
--- NOTE | 2019-12-01 10:42 | P.PN ---
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 Ana Pelayo home she supposed to see today for plan of therapy. Patient presents with fall and left ankle pain. Patient fell on Wednesday night while she was sleeping in the middle of night she felt lower abdominal cramps and urge for bowel movement, on her way to the restroom she had run the bowel movement where she slipped and fell on her side with no loss of consciousness or dizziness as per patient, patient remained on the floor for half an hour as she slept , she woke up and climbed to her bed and with the help of her friend she came to emergency room Patient denies history of loose bowel movement or abdominal pain prior to this episode, she denies current diarrhea or abdominal pain and her abdominal examination is soft without tenderness. No nausea vomiting Patient she has history of triple-vessel disease status post stents 3 in 2016. she's also complaining of from chest pain on and off, last time she had chest pain was about 2 days ago, the patient is central, mild fat like burning and stretchy and associated with mild dyspnea She is a smoker about 1 pack per day and she has chronic cough with little phlegm however she is not on home oxygen, and she does not use CPAP/BiPAP She denies depression or suicidal ideation patient is afebrile, blood pressure overnight was on the low side 84/48 and she received more than 2 L of normal saline boluses as well as normal slanted 100 mL per hour, currently blood pressure 108/58, she saturating 100% normal male. Labs reviewed showing WBC of 8.3K, hemoglobin 10.5, platelets normal.INR 0.9, BMP is unremarkable. EKG showing normal sinus rhythm at [address]-T changes except for mild biphasic T wave in lead II AND III CT of the head and neck, cervical spine: No acute process or fracture by radiologist, chest x-ray: No acute process, chronic parenchymal changes. Left ankle x-ray showing acute displaced trimalleolar fracture with mortise disruption in the emergency room patient was received several doses of hydromorphone as well as on the medical floor, also she was started on morphine. coronavirus tests pending 12/01/2019 Patient presents with right ankle trimalleolar fracture after a fall, she is status post open reduction and internal fixation. Today is postoperative day #1. Patient is lying In bed, little lethargic however she is awake and oriented to time place and person. No chest pain or dyspnea. Her pain in her left ankle is controlled. No diarrhea. Vitals stable. Afebrile. Her blood pressure is stable 127/68 Sugar is controlled. No labs from today. Left humerus x-ray showing no fracture. Hemoglobin A1c is 7%, at times she was on Lantus 5 unitsOn discharge, the patient has been prescribed with known to restart Levemir 4 units hs Cardiology input is appreciated. She remains on normal saline at 75 mL/h. She is on antibiotic cefazolin by surgical team Echocardiogram is done and the result is pending Review of Systems CONSTITUTIONAL: No fever, no malaise, no fatigue. HEENT: No recent visual problems or hearing problems. Denied any sore throat. CARDIOVASCULAR: No orthopnea, PND, no palpitations, no syncope. PULMONARY: No shortness of breath, no cough, no hemoptysis. GASTROINTESTINAL: No diarrhea, no nausea, no vomiting, no abdominal pain. Normoactive bowel sounds. NEUROLOGICAL: No headaches, no weakness, no numbness. HEMATOLOGICAL: Denies any bleeding or petechiae. GENITOURINARY: Denies any burning micturition, frequency, or urgency. ENDOCRINE: Denies any polyuria or polydipsia. Active Medications Generic Name Dose Route Start Last Admin Trade Name Freq PRN Reason Stop Dose Admin Acetaminophen 650 mg 11/30/19 19:51 Tylenol Tab PO Q6HR PRN Fever and/ or Mild Pain Hydrocodone Bitart/Acetaminophen 1 each 11/30/19 19:50 12/01/19 04:35 [place] 5-325 PO 1 each Q6HR PRN Administration Pain Hydrocodone Bitart/Acetaminophen 2 each 11/30/19 19:50 [place] 5-325 PO Q6HR PRN Pain Aspirin 81 mg 12/01/19 09:00 12/01/19 07:45 Aspirin PO 81 mg DAILY ADAN Administration Atorvastatin Calcium 80 mg 11/30/19 09:00 12/01/19 07:45 Lipitor PO 80 mg DAILY ADAN Administration Carvedilol 3.125 mg 11/30/19 17:30 12/01/19 07:02 Coreg PO 3.125 mg AC-BID ADAN Administration Famotidine 20 mg 11/30/19 21:00 11/30/19 19:59 Pepcid IV 20 mg Q24H ADAN Administration Hydromorphone HCl 0.5 mg 11/30/19 11:26 11/30/19 17:27 Dilaudid IVP 0.5 mg Q4HR PRN Administration Pain Hydromorphone HCl 1 mg 11/30/19 19:50 12/01/19 07:02 Dilaudid IVP 1 mg Q3HR PRN Administration Pain Sodium Chloride 1,000 mls @ 75 mls/hr 11/29/19 22:45 12/01/19 04:35 Saline 0.9% IV 100 mls/hr .[id number] ADAN Administration Cefazolin Sodium 2 gm/ Sodium 50 mls @ 100 mls/hr 12/01/19 00:00 12/01/19 07:45 Chloride IVPB 100 mls/hr Q8HR ADAN Administration Insulin Aspart 0 unit 11/30/19 07:30 12/01/19 07:44 Novolog SQ 2 unit ACHS ADAN Administration Protocol Isosorbide Mononitrate 30 mg 12/01/19 09:00 12/01/19 07:45 Imdur PO 30 mg DAILY ADAN Administration Lisinopril 10 mg 12/01/19 09:00 12/01/19 07:45 Zestril PO 10 mg DAILY ADAN Administration Naloxone HCl 0.2 mg 11/29/19 19:07 Narcan IV Q2M PRN Opioid Reversal Ondansetron HCl 4 mg 11/29/19 22:42 12/01/19 04:37 Zofran IVP 4 mg Q6HR PRN Administration Nausea And Vomiting Oxcarbazepine 300 mg 11/30/19 09:00 12/01/19 07:46 Trileptal PO 300 mg BID ADAN Administration Paroxetine HCl 40 mg 11/30/19 09:00 12/01/19 07:46 Paxil PO 40 mg DAILY ADAN Administration Tramadol HCl 50 mg 11/30/19 22:00 12/01/19 07:46 Ultram PO 50 mg QID ADAN Administration Objective - Vital Signs Vital signs: Vital Signs Temp 98.9 F 12/01/19 07:00 Pulse 87 12/01/19 07:00 Resp 16 12/01/19 07:00 BP 127/68 12/01/19 07:00 Pulse Ox 92 L 12/01/19 07:00 Intake & Output 11/30/19 12/01/19 12/01/19 18:59 06:59 18:59 Intake Total 300 20 Output Total 10 Balance 290 20 Intake: IV 300 Oral 20 Output: Estimated Blood Loss 10 Other: Voiding Method Bedpan # Voids 3 2 - Exam GENERAL: The patient is alert and oriented x3, not in any acute distress. Well developed, well nourished. HEENT: Pupils are round and equally reacting to light. EOMI. No scleral icterus. No conjunctival pallor. Normocephalic, atraumatic. No pharyngeal erythema. No thyromegaly. CARDIOVASCULAR: S1 and S2 present. No murmurs, rubs, or gallops. PULMONARY: Chest is clear to auscultation, no wheezing or crackles. ABDOMEN: Soft, nontender, nondistended, normoactive bowel sounds. No palpable organomegaly. -MUSCULOSKELETAL: No joint swelling or deformity. bruise of the left arm. Left ankle is in cast and painful to the patient EXTREMITIES: No cyanosis, clubbing, or pedal edema. NEUROLOGICAL: Gross neurological examination did not reveal any focal deficits. SKIN: No rashes. No petechiae breast exam: Deferred - Labs CBC & Chem 7: 11/30/19 07:04 11/30/19 07:04 Labs: Abnormal Lab Results - Last 24 Hours (Table) 11/29/19 11/30/19 11/30/19 Range/Units 17:48 12:04 15:37 POC Glucose (mg/dL) 139 H 172 H (75-99) mg/dL Hemoglobin A1c 7.0 H (4.0-6.0) % 11/30/19 11/30/19 12/01/19 Range/Units 17:07 20:15 07:20 POC Glucose (mg/dL) 162 H 130 H 174 H (75-99) mg/dL Hemoglobin A1c (4.0-6.0) % Assessment and Plan Assessment: fall after she slipped on the floor, secondary to crampy bowel movement and one- time loose bowel movement left ankle fracture, displaced trimalleolar, status post open reduction and internal fixation on 11/29 hypotension, currently blood pressure is betteras per patient chest pain on and off, rule out cardiac causes.currently she is chest pain-free bruise of the left arm history of triple coronary artery disease status post stent placement Diabetes mellitus Hyperlipidemia Nicotine dependence 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 Connective tissue migraine Plan: this is a pleasant 69 years old female who presents with fall and left ankle fracture. Status post ORIF, continue with pain management and DVT prophylaxis she is currently on aspirin 81 mg daily. Echocardiogram was done and result is pending. Cardiology following the case. Continue with normal saline and monitor blood pressure which is controlled now Labs and medication were reviewed.. Continue same treatment. Continue with symptomatic treatment. Resume home medication. Monitor lytes and vitals. DVT and GI prophylaxis. Further recommendations of the clinical course of the patient GI prophylaxis: Pepcid Prognosis is guarded discussed with staff thank you for consulting us, We will follow up with you
--- NOTE | 2019-12-01 11:00 | ECHOF ---
Referral Reason:hx cad MEASUREMENTS -------- HEIGHT: 157.5 cm WEIGHT: 73.5 kg BP: 120/58 RVIDd: 3.1 cm (< 3.3) IVSd: 1.2 cm (0.6 - 1.1) LVIDd: 4.6 cm (3.9 - 5.3) LVPWd: 1.3 cm (0.6 - 1.1) IVSs: 1.5 cm LVIDs: 3.1 cm LVPWs: 1.8 cm LA Diam: 3.5 cm (2.7 - 3.8) LAESV Index (A-L): 22.26 ml/m Ao Diam: 3.2 cm (2.0 - 3.7) AV Cusp: 2.0 cm (1.5 - 2.6) MV EXCURSION: 16.594 mm (> 18.000) MV EF SLOPE: 95 mm/s (70 - 150) EPSS: 0.9 cm MV E Chance: 1.07 m/s MV DecT: 131 ms MV A Chance: 1.34 m/s MV E/A Ratio: 0.80 FINDINGS -------- Sinus rhythm. This was a technically adequate study. The left ventricular size is normal. There is mild concentric left ventricular hypertrophy. Overa ll left ventricular systolic function is normal with, an EF between 55 - 60 %. The right ventricle is normal in size. Normal LA size by volume 22+/-6 ml/m2. The right atrium is normal in size. Interatrial and interventricular septum intact. The aortic valve is trileaflet and appears structurally normal. Mild mitral regurgitation is present. The tricuspid valve appears structurally normal. There is no pulmonic regurgitation present. The aortic root size is normal. Normal inferior vena cava with normal inspiratory collapse consistent with estimated right atrial pre ssure of 5 mmHg. There is no pericardial effusion. CONCLUSIONS -------- 1. Sinus rhythm. 2. This was a technically adequate study. 3. The left ventricular size is normal. 4. There is mild concentric left ventricular hypertrophy. 5. The right ventricle is normal in size. 6. Normal LA size by volume 22+/-6 ml/m2. 7. The right atrium is normal in size. 8. Interatrial and interventricular septum intact. 9. The aortic valve is trileaflet and appears structurally normal. 10. Mild mitral regurgitation is present. 11. The tricuspid valve appears structurally normal. 12. There is no pulmonic regurgitation present. 13. The aortic root size is normal. 14. Normal inferior vena cava with normal inspiratory collapse consistent with estimated right atrial pressure of 5 mmHg. 15. There is no pericardial effusion. [employer] OFFICER: Ashley Mike RDCS
[2019-12-01] MEDS: INSULIN DETEMIR (LEVEMIR) 100 UNIT/ML SYR SQ SCH (11:06)
--- NOTE | 2019-12-01 11:39 | P.PN ---
Subjective HISTORY OF PRESENTING ILLNESS This is a pleasant 69-year-old female past medical history significant for coronary artery disease, diabetes mellitus, hypertension, dyslipidemia and chronic nicotine dependence. She follows in the office with Dr. Muro. She is seen and examined resting comfortably laying flat in bed in no acute distress. She underwent open reduction and internal fixation of the left trimalleolar fracture with plate implantation. She denies chest pain, shortness of breath, dizziness or palpitations. PHYSICAL EXAMINATION Blood pressure 127/68 heart rate 87 afebrile and maintaining oxygen saturation on room air. CONSTITUTIONAL: No apparent distress. HEENT: Head is normocephalic. Pupils are equal, round. Sclerae anicteric. Mucous membranes of the mouth are moist. No JVD. No carotid bruit. CHEST EXAMINATION: Lungs are clear to auscultation. No chest wall tenderness is noted on palpation or with deep breathing. HEART EXAMINATION: Regular rate and rhythm. S1, S2 heard. No murmurs, gallops or rub. EXTREMITIES: 2+ peripheral pulses, no lower extremity edema on the right, caste in place on the left lower extremity and no calf tenderness. Left upper extremity with ecchymosis noted. ASSESSMENT Fall, no syncope or loss of consciousness Trimalleolar ankle fracture History of coronary artery disease, most recent PCI 2016 Hypertension Dyslipidemia Diabetes mellitus Chronic nicotine dependence PLAN She is slightly tachycardic sounding on exam, likely related to mild deydration. Increase coreg to 6.25 mg PO for slight tachycardia noted on exam. Given 0.9% NS at 125 cc/hour for the next 24 hours. Plavix to be discontinued indefinitely. Ongoing medical management, we will follow as needed. Follow up with Dr. Muro upon discharge. Nurse Practitioner note has been reviewed, I agree with a documented findings and plan of care. Patient was seen and examined. Objective - Vital Signs Vital signs: Vital Signs Temp 98.9 F 12/01/19 07:00 Pulse 87 12/01/19 07:00 Resp 16 12/01/19 07:00 BP 127/68 12/01/19 07:00 Pulse Ox 92 L 12/01/19 07:00 Intake & Output 11/30/19 12/01/19 12/01/19 18:59 06:59 18:59 Intake Total 300 20 Output Total 10 Balance 290 20 Intake: IV 300 Oral 20 Output: Estimated Blood Loss 10 Other: Voiding Method Bedpan # Voids 3 2 - Labs CBC & Chem 7: 11/30/19 07:04 11/30/19 07:04 Labs: Abnormal Lab Results - Last 24 Hours (Table) 11/29/19 11/30/19 11/30/19 Range/Units 17:48 12:04 15:37 POC Glucose (mg/dL) 139 H 172 H (75-99) mg/dL Hemoglobin A1c 7.0 H (4.0-6.0) % 11/30/19 11/30/19 12/01/19 Range/Units 17:07 20:15 07:20 POC Glucose (mg/dL) 162 H 130 H 174 H (75-99) mg/dL Hemoglobin A1c (4.0-6.0) %
[2019-12-01 12:01] LABS: Glucose,Whole Blood 156 mg/dL (75-99)
--- NOTE | 2019-12-01 14:53 | P.PN ---
Subjective Progress Note Date: 12/01/19 Principal diagnosis: Status post ORIF left trimalleolar ankle fracture Patient evaluated today bedside, resting comfortably. Splint is in good position and condition. Concern with patient going home, she does live alone. We'll be discussing with case management and social work proper steps for subacute rehab Objective - Vital Signs Vital signs: Vital Signs Temp 98.9 F 12/01/19 07:00 Pulse 87 12/01/19 07:00 Resp 16 12/01/19 08:00 BP 127/68 12/01/19 07:00 Pulse Ox 92 L 12/01/19 07:00 Intake & Output 11/30/19 12/01/19 12/01/19 18:59 06:59 18:59 Intake Total 300 20 Output Total 10 Balance 290 20 Intake: IV 300 Oral 20 Output: Estimated Blood Loss 10 Other: Voiding Method Bedpan Bedpan # Voids 3 2 1 - Exam Left lower extremity: Postop splint is in good position and condition. She is able to wiggle his toes are no difficulty. Sensation to light touch proximal distal to this foot are intact. Toes are warm to touch. - Labs CBC & Chem 7: 11/30/19 07:04 11/30/19 07:04 Labs: Abnormal Lab Results - Last 24 Hours (Table) 11/30/19 11/30/19 11/30/19 Range/Units 15:37 17:07 20:15 POC Glucose (mg/dL) 172 H 162 H 130 H (75-99) mg/dL 12/01/19 12/01/19 Range/Units 07:20 12:00 POC Glucose (mg/dL) 174 H 156 H (75-99) mg/dL Assessment and Plan Assessment: Status post ORIF left trimalleolar ankle fracture Plan: Pain control, will try to oral medication GI and DVT prophylaxis, aspirin 325 mg daily Nonweightbearing left lower extremity Ice and elevate Medical recommendations Hopeful discharge to rehab tomorrow Time with Patient: Less than 30
[2019-12-01 16:54] LABS: Glucose,Whole Blood 141 mg/dL (75-99)
[2019-12-01] MEDS: CARVEDILOL 6.25 MG TAB PO SCH (16:55)
[2019-12-01] MEDS: HYDROmorphone 0.5 MG/0.5 ML SYRINGE IVP PRN ×2 (16:55→23:38)
[2019-12-01] MEDS: FAMOTIDINE 20 MG/2 ML VIAL IV SCH (21:06)
[2019-12-01 21:16] LABS: Glucose,Whole Blood 169 mg/dL (75-99)
[2019-12-02] MEDS: SODIUM CHLORIDE 0.9% 1,000 ML IV SCH (05:39)
[2019-12-02 06:49] LABS: Glucose,Whole Blood 110 mg/dL (75-99)
[2019-12-02] MEDS: INSULIN ASPART (NovoLOG) 100 UNIT/ML VIAL SQ SCH ×2 (06:58→12:11)
[2019-12-02] MEDS: ONDANSETRON 4 MG/2 ML VIAL IVP PRN (07:14)
[2019-12-02] MEDS: CARVEDILOL 6.25 MG TAB PO SCH (07:14)
[2019-12-02] MEDS: INSULIN DETEMIR (LEVEMIR) 100 UNIT/ML SYR SQ SCH (07:14)
[2019-12-02] MEDS: HYDROcodone/APAP 5-325MG 1 EACH TAB PO PRN ×2 (07:18→14:30)
[2019-12-02 07:44] VITALS: BP 142/80; PULSE 76; RESP 18; TEMP 98.5
[2019-12-02] MEDS: OXcarbazepine 300 MG TAB PO SCH (08:07)
[2019-12-02] MEDS: ISOSORBIDE MONONITRATE ER 30 MG TAB.ER.24H PO SCH (08:07)
[2019-12-02] MEDS: LISINOPRIL 10 MG TAB PO SCH (08:07)
[2019-12-02] MEDS: ATORVASTATIN 80 MG TAB PO SCH (08:07)
[2019-12-02] MEDS: traMADol 50 MG TAB PO SCH ×2 (08:08→12:10)
[2019-12-02] MEDS: PARoxetine 20 MG TAB PO SCH (08:08)
[2019-12-02] MEDS ORDERED: ASPIRIN 325 MG TAB PO SCH (09:00)
[2019-12-02] MEDS ORDERED: ONDANSETRON 4 MG/2 ML VIAL IVP STA (11:36)
[2019-12-02 12:04] LABS: Glucose,Whole Blood 201 mg/dL (75-99)
--- NOTE | 2019-12-02 12:11 | P.PN ---
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 Ana Pelayo home she supposed to see today for plan of therapy. Patient presents with fall and left ankle pain. Patient fell on Wednesday night while she was sleeping in the middle of night she felt lower abdominal cramps and urge for bowel movement, on her way to the restroom she had run the bowel movement where she slipped and fell on her side with no loss of consciousness or dizziness as per patient, patient remained on the floor for half an hour as she slept , she woke up and climbed to her bed and with the help of her friend she came to emergency room Patient denies history of loose bowel movement or abdominal pain prior to this episode, she denies current diarrhea or abdominal pain and her abdominal examination is soft without tenderness. No nausea vomiting Patient she has history of triple-vessel disease status post stents 3 in 2016. she's also complaining of from chest pain on and off, last time she had chest pain was about 2 days ago, the patient is central, mild fat like burning and stretchy and associated with mild dyspnea She is a smoker about 1 pack per day and she has chronic cough with little phlegm however she is not on home oxygen, and she does not use CPAP/BiPAP She denies depression or suicidal ideation patient is afebrile, blood pressure overnight was on the low side 84/48 and she received more than 2 L of normal saline boluses as well as normal slanted 100 mL per hour, currently blood pressure 108/58, she saturating 100% normal male. Labs reviewed showing WBC of 8.3K, hemoglobin 10.5, platelets normal.INR 0.9, BMP is unremarkable. EKG showing normal sinus rhythm at [address]-T changes except for mild biphasic T wave in lead II AND III CT of the head and neck, cervical spine: No acute process or fracture by radiologist, chest x-ray: No acute process, chronic parenchymal changes. Left ankle x-ray showing acute displaced trimalleolar fracture with mortise disruption in the emergency room patient was received several doses of hydromorphone as well as on the medical floor, also she was started on morphine. coronavirus tests pending 12/01/2019 Patient presents with right ankle trimalleolar fracture after a fall, she is status post open reduction and internal fixation. Today is postoperative day #1. Patient is lying In bed, little lethargic however she is awake and oriented to time place and person. No chest pain or dyspnea. Her pain in her left ankle is controlled. No diarrhea. Vitals stable. Afebrile. Her blood pressure is stable 127/68 Sugar is controlled. No labs from today. Left humerus x-ray showing no fracture. Hemoglobin A1c is 7%, at times she was on Lantus 5 unitsOn discharge, the patient has been prescribed with known to restart Levemir 4 units hs Cardiology input is appreciated. She remains on normal saline at 75 mL/h. She is on antibiotic cefazolin by surgical team Echocardiogram is done and the result is pending 12/02/2019 Patient lying in bed doing much better than when she came in, she still complaining from pain at her surgical site which thinks it's mildly uncontrolled however is significantly improved than when she came into the hospital. Also she has some nausea and Zofran is provided. No abdominal pain, no chest pain or dyspnea. No nausea vomiting. Yesterday she was started on Coreg, lisinopril and Imdur. Her blood pressure this morning is 142/80, she is also on normal saline at 1 25 mL/h. Possible patient might benefit from ECF upon discharge. Pressure was slightly on high side and hemoglobin A1c at 7%, we increased her long-acting insulin from 5 units at home to 7 units daily Objective - Vital Signs Vital signs: Vital Signs Temp 98.5 F 12/02/19 07:00 Pulse 76 12/02/19 07:00 Resp 18 12/02/19 07:00 BP 142/80 12/02/19 07:00 Pulse Ox 97 12/02/19 07:00 Intake & Output 12/01/19 12/02/19 12/02/19 18:59 06:59 18:59 Other: Voiding Method Bedpan Bedpan # Voids 1 1 - Exam GENERAL: The patient is alert and oriented x3, not in any acute distress. Well developed, well nourished. HEENT: Pupils are round and equally reacting to light. EOMI. No scleral icterus. No conjunctival pallor. Normocephalic, atraumatic. No pharyngeal erythema. No thyromegaly. CARDIOVASCULAR: S1 and S2 present. No murmurs, rubs, or gallops. PULMONARY: Chest is clear to auscultation, no wheezing or crackles. ABDOMEN: Soft, nontender, nondistended, normoactive bowel sounds. No palpable organomegaly. -MUSCULOSKELETAL: No joint swelling or deformity. bruise of the left arm. Left ankle is in cast and painful to the patient EXTREMITIES: No cyanosis, clubbing, or pedal edema. NEUROLOGICAL: Gross neurological examination did not reveal any focal deficits. SKIN: No rashes. No petechiae breast exam: Deferred - Labs CBC & Chem 7: 11/30/19 07:04 11/30/19 07:04 Labs: Abnormal Lab Results - Last 24 Hours (Table) 12/01/19 12/01/19 12/02/19 Range/Units 16:45 21:14 06:48 POC Glucose (mg/dL) 141 H 169 H 110 H (75-99) mg/dL 12/02/19 Range/Units 12:03 POC Glucose (mg/dL) 201 H (75-99) mg/dL Assessment and Plan Assessment: fall after she slipped on the floor, secondary to crampy bowel movement and one- time loose bowel movement left ankle fracture, displaced trimalleolar, status post open reduction and internal fixation on 11/29 hypotension, currently blood pressure is betteras per patient chest pain on and off, rule out cardiac causes.currently she is chest pain-free bruise of the left arm history of triple coronary artery disease status post stent placement Diabetes mellitus Hyperlipidemia Nicotine dependence 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 Connective tissue migraine Plan: this is a pleasant 69 years old female who presents with fall and left ankle fracture. Status post ORIF, continue with pain management and DVT prophylaxis she is currently on aspirin 81 mg daily. Echocardiogram was done and result is pending. Cardiology following the case. Continue with normal saline and monitor blood pressure which is controlled now Labs and medication were reviewed.. Continue same treatment. Continue with symptomatic treatment. Resume home medication. Monitor lytes and vitals. DVT and GI prophylaxis. Further recommendations of the clinical course of the patient GI prophylaxis: Pepcid Prognosis is guarded discussed with staff thank you for consulting us, We will follow up with you
--- NOTE | 2019-12-02 12:14 | P.PN ---
Subjective Progress Note Date: 12/02/19 Principal diagnosis: Status post ORIF left trimalleolar ankle fracture Patient evaluated today bedside, resting comfortably. Splint is in good position and condition. Objective - Vital Signs Vital signs: Vital Signs Temp 98.5 F 12/02/19 07:00 Pulse 76 12/02/19 07:00 Resp 18 12/02/19 07:00 BP 142/80 12/02/19 07:00 Pulse Ox 97 12/02/19 07:00 Intake & Output 12/01/19 12/02/19 12/02/19 18:59 06:59 18:59 Other: Voiding Method Bedpan Bedpan # Voids 1 1 - Exam Left lower extremity: Postop splint is in good position and condition. She is able to wiggle his toes are no difficulty. Sensation to light touch proximal distal to this foot are intact. Toes are warm to touch. - Labs CBC & Chem 7: 11/30/19 07:04 11/30/19 07:04 Labs: Abnormal Lab Results - Last 24 Hours (Table) 12/01/19 12/01/19 12/02/19 Range/Units 16:45 21:14 06:48 POC Glucose (mg/dL) 141 H 169 H 110 H (75-99) mg/dL 12/02/19 Range/Units 12:03 POC Glucose (mg/dL) 201 H (75-99) mg/dL Assessment and Plan Assessment: Status post ORIF left trimalleolar ankle fracture Plan: Pain control, plan for discharge on oral medication GI and DVT prophylaxis, aspirin 325 mg daily Nonweightbearing left lower extremity Ice and elevate Medical recommendations Discharge to rehab today Time with Patient: Less than 30
--- NOTE | 2019-12-02 12:24 | P.DS ---
Providers Date of admission: 11/29/19 20:47 Expected date of discharge: 12/02/19 Attending physician: Renard Islas Consults: 11/29/19 19:07 Consult Physician Stat Consulting Provider: Rebekah Smallwood Consult Reason/Comments: Trimalleolar fracture left ankle Do you want consulting provider notified?: Yes 11/30/19 11:25 Consult Physician Urgent Consulting Provider: Jonatan Muro Consult Reason/Comments: preoperative evaluation, chest pain Do you want consulting provider notified?: Yes Primary care physician: Nancy Chavez [facility] Course: Date of admission: 11/29/2019 Date of discharge: 12/02/2019 Admission diagnosis: Displaced left trimalleolar ankle fracture Discharge diagnosis: Status post ORIF left trimalleolar ankle fracture Attending physician: Dr. Islas Surgical procedures: ORIF left trimalleolar ankle fracture Brief history: Patient is a 69-year-old female Who presented to [facility] on 11/29/2019 after falling and injuring her left ankle. It was determined she had a displaced left trimalleolar ankle fracture. She was admitted under orthopedic care with plan for surgical intervention. She underwent surgery on 11/30/2019. Hospital course: Details of patient's surgery can be found in operative report. Patient tolerated the procedure well and was subsequently transported to orthopedic floor. Patient's orthopeidc and medical care was provided daily. Patient had daily laboratory tests performed for evaluation of overall blood counts. Patient had daily physical therapy to include strengthening range of motion as well as education with walker ambulation. Patient was treated with Aspirin for their postoperative DVT prophylaxis during their inpatient stay. Patient was noted to have a relatively uneventful postoperative course. Patient reported satisfactory pain control with oral pain medications by postoperative day. Patient showed satisfactory progress with physical therapy. Patient moved steadily through the program and had no difficulty meeting the goals by postoperative day 1. Given patient's otherwise satisfactory course and having met physical therapy goals, plan is to discharge patient rehab on postoperative day 2. Discharge condition/disposition: Patient will be discharged [home] in stable condition. Discharge medications: Instructions are given on resumption of patient's normal daily medications per primary care recommendation, in addition patient will be prescribed [place] 5 mg/325 mg, tramadol 50 mg, Colace 100 mg, Zofran 8 mg, Aspirin 325 mg. Discharge instructions: 1. Do not remove splint, keep covered and dry while showering 2. Nonweightbearing left lower extremity 3. Ice and elevate when necessary. Do not exceed 20 minutes per hour with ice pack. 7. Pain meds and anticoagulants per prescription. 8. Pain medication has potential to cause constipation. Increase oral fluid and fiber intake. Contact primary care provider if you have not had a bowel movement within 48 hours after discharge 10. Follow up in office at 2 weeks postop with Zohaib Gunderson PA-C 11. Follow up with your primary care doctor 7-10 days after discharge. 12. Contact [facility] with any questions, . Procedures: Open reduction internal fixation left trimalleolar ankle fracture Patient Condition at Discharge: Serious Plan - Discharge Summary Discharge Rx Participant: No New Discharge Prescriptions: New Aspirin 325 mg PO DAILY #30 tab Docusate [Colace] 100 mg PO DAILY #30 capsule Hydrocodone/Acetaminophen [[place] 5-325] 1 - 2 each PO Q6HR PRN #56 tab PRN Reason: Pain traMADol HCl [Ultram] 50 mg PO Q6H PRN #28 tab PRN Reason: Pain Ondansetron HCl [Zofran] 8 mg PO Q12H PRN #30 tab PRN Reason: Nausea And Vomiting Discontinued Clopidogrel [Plavix] 75 mg PO DAILY tab No Action OXcarbazepine [Trileptal] 300 mg PO BID PARoxetine HCL [Paxil] 40 mg PO DAILY clonazePAM [KlonoPIN] 1 - 2 mg PO DAILY PRN PRN Reason: Anxiety Isosorbide Mononitrate ER [Imdur] 30 mg PO DAILY Carvedilol [Coreg] 3.125 mg PO AC-BID Aspirin EC [Ecotrin Low Dose] 81 mg PO DAILY traZODone HCL [TraZODone HCl] 50 - 100 mg PO HS Lisinopril [Zestril] 10 mg PO DAILY Insulin Glargine,Hum.rec.anlog [Lantus Solostar] 5 unit SQ HS Ergocalciferol [Vitamin D2] 50,000 unit PO Q7D Atorvastatin [Lipitor] 80 mg PO DAILY Discharge Medication List OXcarbazepine [Trileptal] 300 mg PO BID 06/24/16 [History] PARoxetine HCL [Paxil] 40 mg PO DAILY 06/24/16 [History] clonazePAM [KlonoPIN] 1 - 2 mg PO DAILY PRN 07/15/16 [History] Carvedilol [Coreg] 3.125 mg PO AC-BID 09/02/17 [History] Isosorbide Mononitrate ER [Imdur] 30 mg PO DAILY 09/02/17 [History] traZODone HCL [TraZODone HCl] 50 - 100 mg PO HS 08/22/18 [History] Atorvastatin [Lipitor] 80 mg PO DAILY 11/29/19 [History] Ergocalciferol [Vitamin D2] 50,000 unit PO Q7D 11/29/19 [History] Insulin Glargine,Hum.rec.anlog [Lantus Solostar] 5 unit SQ HS 11/29/19 [History] Lisinopril [Zestril] 10 mg PO DAILY 11/29/19 [History] Aspirin 325 mg PO DAILY #30 tab 12/02/19 [Rx] Docusate [Colace] 100 mg PO DAILY #30 capsule 12/02/19 [Rx] Hydrocodone/Acetaminophen [[place] 5-325] 1 - 2 each PO Q6HR PRN #56 tab 12/02/19 [Rx] Ondansetron HCl [Zofran] 8 mg PO Q12H PRN #30 tab 12/02/19 [Rx] traMADol HCl [Ultram] 50 mg PO Q6H PRN #28 tab 12/02/19 [Rx] Follow up Appointment(s)/Referral(s): Nancy Chavez MD [Primary Care Provider] - 1-2 days Jonatan Muro MD [STAFF PHYSICIAN] - 2 Weeks Javon Gunderson PAC [PHYSICIAN SENIOR ACCOUNTING CLERK] - 2 Weeks Activity/Diet/Wound Care/Special Instructions: Orthopedic discharge instructions: 1. Do not remove splint, keep covered and dry while showering 2. Ice and elevate 3. Nonweightbearing left lower extremity 4. Pain medication as needed 5. Aspirin 325 mg daily for DVT prophylaxis 6. Plan for follow-up at [facility] in 2 weeks Discharge Disposition: TRANSFER TO SNF/ECF
[2019-12-02] MEDS ORDERED: INSULIN DETEMIR (LEVEMIR) 100 UNIT/ML SYR SQ ONE (13:00)
[2019-12-02] MEDS ORDERED: FAMOTIDINE 20 MG TAB PO SCH (21:00)
[2019-12-03] MEDS ORDERED: INSULIN DETEMIR (LEVEMIR) 100 UNIT/ML SYR SQ SCH (07:00)
== END 2019-12-02 15:05 | DRG 493 ==
LOC: EC 16:00 → 4SSUR 20:47
PROVIDERS: ADMIT Orthopaedic Surgery; ATTEND Orthopaedic Surgery
PROC: 0QSK04Z Reposition Left Fibula with Internal Fixation Device, Open Approach (ICD-10-PCS; principal; 2019-11-29)
PROC: 0QSH04Z Reposition Left Tibia with Internal Fixation Device, Open Approach (ICD-10-PCS; principal; 2019-11-29)
DX: S82.852A Displaced trimalleolar fracture of left lower leg, initial encounter for closed fracture (principal); F31.30 Bipolar disorder, current episode depressed, mild or moderate severity, unspecified; C50.911 Malignant neoplasm of unspecified site of right female breast; Z79.4 Long term (current) use of insulin; E11.9 Type 2 diabetes mellitus without complications; I25.82 Chronic total occlusion of coronary artery; I95.9 Hypotension, unspecified; I25.10 Atherosclerotic heart disease of native coronary artery without angina pectoris; E78.5 Hyperlipidemia, unspecified; Z11.59 Encounter for screening for other viral diseases; G43.909 Migraine, unspecified, not intractable, without status migrainosus; G89.29 Other chronic pain; M54.9 Dorsalgia, unspecified; I10 Essential (primary) hypertension; K21.9 Gastro-esophageal reflux disease without esophagitis; R07.9 Chest pain, unspecified; I25.2 Old myocardial infarction; F41.9 Anxiety disorder, unspecified; F17.210 Nicotine dependence, cigarettes, uncomplicated; Z71.6 Tobacco abuse counseling; Z79.02 Long term (current) use of antithrombotics/antiplatelets; Z79.82 Long term (current) use of aspirin; Z79.899 Other long term (current) drug therapy; Z95.5 Presence of coronary angioplasty implant and graft; Z87.19 Personal history of other diseases of the digestive system; Z85.72 Personal history of non-Hodgkin lymphomas; Z87.39 Personal history of other diseases of the musculoskeletal system and connective tissue; Z88.5 Allergy status to narcotic agent; Z91.040 Latex allergy status; W01.0XXA Fall on same level from slipping, tripping and stumbling without subsequent striking against object, initial encounter; Y92.008 Other place in unspecified non-institutional (private) residence as the place of occurrence of the external cause; Z83.3 Family history of diabetes mellitus; Z82.49 Family history of ischemic heart disease and other diseases of the circulatory system
CPT/HCPCS: 29515; 36415; 70450; 71046; 72125; 80048; 80053; 81003; 83036; 84484; 85025; 85610; 87635; 93005; 93306; 96374; 96375; 96376; 99285

== ENCOUNTER → 2020-01-18 | Outpatient (CLI) | payer MEDICARE, OTHER ==
[2020-01-18 10:06] VITALS: BP 83/56; PULSE 64; RESP 18; TEMP 98.2
--- NOTE | 2020-01-18 11:02 | P.PN ---
Subjective Progress Note Date: 01/18/20 Principal diagnosis: stage II right breast cancer Vanesa is a 69 year old white female seen in consultation for Dr. Chavez on 09-08-19, who presented for breast evaluation secondary to feeling a lump in her right breast. She stated it had been there for several months. It is becoming painful. She believed she was able to feel more than one lump. Radiographic evaluation was performed and on mammogram and a 2.1 x 1.7 cm lesion was noted in the right breast in the upper outer quadrant area. This was confirmed by ultrasound which revealed the lesion to be approximately 2.1 cm in size. The other 2 areas that the patient states that she can feel something and were not seen radiographically either on mammogram or ultrasound. The patient did have an enlarged lymph node noted radiographically both on mammogram and ultrasound in the right axilla. She does not feel anything of concern in the left breast. An ultrasound core biopsy was performed and 3420. The lesion in the left breast at 10:00 was a grade 2 infiltrating ductal adenocarcinoma. The lesion additional in the 10 o'clock position also was infiltrating ductal carcinoma. She had a right axillary node biopsy which also revealed moderately differentiated grade 2 infiltrating carcinoma associated with foci of residual lymph node parenchyma. The lesion is ER positive GA negative and HER-2 negative. It is a grade 2 lesion. The patient was seen in consultation with medical oncology. She would not accept any treatment leading to her loss. An echo tape TX study was recommended. If she is high risk neoadjuvant therapy was recommended and was up to the patient except 39. If she is low risk consider proceeding with surgery and adjuvant endocrine therapy versus neoadjuvant endocrine therapy. The patient's case was delayed secondary to the herman virus and the operating room's being shutdown. During that time interval the patient fractured her left ankle. It was a trying malleolus fracture which required surgical intervention. She has been given clearance for surgery from orthopedic surgery. It was necessary that she have surgery for this. Family History: mother: breast cancer 68 Patient with a history of MALT lymphoma in 2011 patient breast cancer at 69 Hormonal History: menarche: 12 , breast fed no, age at first: 16 menopause: 48 BCP: no hormones: no Surgical History: 1. Coronary stents, 2 years (takes aspirin and plavix) Medical History: 1. two MA 2. DM 3. anxiety/depression Social History: smoke: 1/PPD, for 50 years alcohol: none drugs; negative - Constitutional Constitutional: Reports night sweats - EENT Eyes: bilateral blurred vision, denies pain Ears: bilateral: decreased hearing, deny: tinnitus Ears, nose, mouth and throat: Reports headache, Denies sore throat - Breasts Breasts: bilateral: as per HPI - Cardiovascular Comment: two MA - Respiratory Comment: smoker Respiratory: Reports cough - Gastrointestinal Gastrointestinal: Denies abdominal pain, Denies diarrhea, Denies nausea, Denies vomiting - Genitourinary (Female) Comment: UTI Genitourinary: Denies dysuria, Denies hematuria - Menstruation Menstruation: Reports postmenopausal - Musculoskeletal Comment: arthritis - Integumentary Integumentary: Reports pruritus - Neurological Neurological: Denies numbness, Denies weakness - Psychiatric Psychiatric: Reports anxiety, Reports depression - Endocrine Comment: diabetes - Hematologic/Lymphatic Comment: Aspirin and Plavix - Allergic/Immunologic Allergic/Immunologic: Reports as per HPI Objective - Vital Signs Vital signs: Vital Signs Temp 98.2 F 01/18/20 10:03 Pulse 64 01/18/20 10:03 Resp 18 01/18/20 10:03 BP 83/56 01/18/20 10:03 Pulse Ox 99 01/18/20 10:03 Intake & Output 01/17/20 01/18/20 01/18/20 18:59 06:59 18:59 Weight 65.771 kg - Exam BMI 25.7 - Constitutional General appearance: Present: average body habitus - EENT Eyes: Present: EOMI ENT: Present: hearing grossly normal - Neck Neck: Present: normal ROM - Respiratory Respiratory: bilateral: CTA - Cardiovascular Rhythm: regular Heart sounds: normal: S1, S2 - Gastrointestinal General gastrointestinal: Present: normal bowel sounds, soft - Integumentary Integumentary: Present: normal turgor - Musculoskeletal Musculoskeletal Comment(s): left foot in walking boot - Psychiatric Psychiatric: Present: A&O x's 3, appropriate affect, intact judgment & insight - Additional findings Additional findings: breast exam: BRA: 36C inspection: Breasts: Right breast: Multi-positional exam lesion noted in the upper outer quadrant approximately 2.3 cm in size with some skin dimpling, fibrocystic changes otherwise no dominant masses or nodules of concern Right axilla: Shoddy adenopathy Left breast: Multi-positional exam fibrocystic changes no dominant masses or nodules of concern Left axilla: No adenopathy of concern Assessment and Plan Assessment: Impression: 1. Stage II right breast cancer G2 ER positive GA negative HER-2 negative 2. Recent left trimalar fracture at this time patient cleared from orthopedic surgery for breast surgery 3. Family history of breast cancer 4. Patient history of multiple lymphoma 5. Prior history of myocardial infarction 2 with stents on blood thinners 6. History of pneumonia 7. Diabetes 8. On aspirin and Plavix 9. oncotype 22. patient refuses anything that would result in loss of her hair 10. case presented at tumor board and discussed with medical oncology, have recommended surgery first Plan: 1. right breast partial mastectomy, axillary node dissection after needle localization of positive lymph node right axilla, possible onco plastic tissue transfer 2. Medical clearance Dr. Lindsay 3. clearance Dr. Herrera 4. Clearance ortho 5. Clearance Dr. torres/ Jina The patient was given the option of a mastectomy plus or minus reconstruction, or a partial mastectomy, axillary node dissection. The patient understands the risks and benefits which include but are not limited to bleeding, infection, reaction to the anesthetic. She understands there is a risk of positive margins which would necessitate further surgery. She also understands there is a risk of lymphedema, decreased sensation to the inner arm, or injury to the nerve supplying the scapula resulting in wing scapula. This was discussed with her son as well. They understand and wish to proceed. We have also discussed neoadjuvant or adjuvant chemotherapy/hormonal therapy. Her Oncotype is 22 and she is not interested in chemotherapy. She will be recommended to have postprocedure hormonal therapy. CC: Dr. Lindsay encounter 60 mnutes Time with Patient: Greater than 30
== END | disposition home or self-care (01) ==
LOC: WWCWWP 09:41
PROVIDERS: ATTEND Surgery
DX: Z53.9 Procedure and treatment not carried out, unspecified reason (principal)

== ENCOUNTER 2020-01-30 09:54 | Day surgery (SDC) | payer MEDICARE, OTHER ==
[~2020-01-30 09:54] MED LIST: DEXAMETHASONE SOD PHOSPHATE 10 MG/ML 1 ML VIAL IV ONE; HEPARIN SODIUM,PORCINE 5,000 UNIT/ML 1 ML VIAL SQ ONE; LACTATED RINGERS 1,000 ML IV SCH; MIDAZOLAM 2 MG/2 ML VIAL IV PRN; ONDANSETRON 4 MG/2 ML VIAL IVP ONE; Pre Op ABX Message 1 EACH MISC MISCELLANE ONE; fentaNYL (PF) 50 MCG/ML 2 ML AMP IV PRN
[2020-01-30] MEDS ORDERED: ALPRAZolam 0.25 MG TAB ONE (10:55)
[2020-01-30] MEDS ORDERED: LIDOCAINE 1% (10MG/ML) FOR IV START INTRADERMA ONE (11:00)
[2020-01-30 11:11] LABS: Glucose,Whole Blood 131 mg/dL (75-99)
[2020-01-30] MEDS ORDERED: HEPARIN SODIUM,PORCINE 5,000 UNIT/ML 1 ML VIAL ONE (11:19)
[2020-01-30] MEDS ORDERED: ONDANSETRON 4 MG/2 ML VIAL ONE (11:19)
[2020-01-30] MEDS ORDERED: LIDOCAINE 1% INJ 10MG/ML (20 ML MDV) SQ ONE (12:08)
--- NOTE | 2020-01-30 15:30 | NM ---
EXAMINATION TYPE: NM sentinel node injection DATE OF EXAM: 01/30/2020 COMPARISON: NONE INDICATION: Abnormal mammogram. Informed consent was obtained. A timeout was performed. The area around the right nipple was cleansed with alcohol. The skin was anesthetized with 1% Lidoca ine with sodium bicarbonate. In a single dose, a total of 492 microcuries Technetium 99m Tilmanocept was injected. The patient tolerated the procedure very well. IMPRESSIONS: 1.. Successful injection for sentinel node evaluation.
[2020-01-30] MEDS ORDERED: LIDOCAINE 1% INJ 10MG/ML (20 ML MDV) ONE (16:24)
[2020-01-30] MEDS ORDERED: PHENYLEPHRINE-0.9% NACL SYG 1 MG/10 ML SYRINGE ONE (16:24)
[2020-01-30] MEDS ORDERED: SUCCINYLCHOLINE CHLORIDE 100 MG/5 ML SYR IV ONE (16:24)
[2020-01-30] MEDS ORDERED: MIDAZOLAM 2 MG/2 ML VIAL ONE (16:24)
[2020-01-30] MEDS ORDERED: PROPOFOL 10 MG/ML 20 ML VIAL IV ONE (16:24)
[2020-01-30] MEDS ORDERED: fentaNYL (PF) 50 MCG/ML 2 ML AMP ONE (16:24)
[2020-01-30] MEDS ORDERED: LACTATED RINGERS 1,000 ML IV ONE ×3 (17:28→19:22)
--- NOTE | 2020-01-30 18:33 | USB ---
EXAMINATION TYPE: US breast localization RT DATE OF EXAM: 01/30/2020 COMPARISON: 09/20/2019 ultrasound CLINICAL HISTORY: Metastatic lymph node, breast cancer TECHNIQUE: Needle localization with wire placement and surgical excision of area of concern in the right axilla. FINDINGS: The procedure of ultrasound guided needle localization with wire placement for surgical excision was explained to the patient. Risk, benefits, and alternatives were discussed. An informed consent was then obtained. A timeout was performed. The overlying skin was prepped and draped in usual sterile fashion. Lidocaine 1% was used as anesthetic into the skin and subcutaneous tissue up to the level of area of concern. A 7 cm needle was used. This was placed via a axillary approach under ultrasound guidance. It was placed through the lymph node which appear to correspond to the previous ultrasound. The wire was placed through the needle and the needle was withdrawn. Subsequent mammogram show the wire to be in satisfactory position relative to the targeted area of the lymph node with the surgical clip. The wire was fixed to patient's skin. Images were marked for surgeon. The patient tolerated the procedure well without any immediate complication. Patient was then prepped for a right breast needle localization. Specimen: The wire and the targeted lymph node with surgical clip are identified within the specimen mammogram. Ultrasound likewise identifies the lymph node and the wire as expected from the ultrasound guidance. IMPRESSION: 1. Successful ultrasound-guided wire localization and excision. Recommendations: 1. Recommendations are pending pathology results. Pathology Results: Malignant A. RIGHT AXILLARY CONTENTS: Three of eight axillary lymph nodes positive for metastasis. Size of largest metastatic deposit measures 19 mm. B. RIGHT BREAST, LUMPECTOMY: Invasive moderately differentiated ductal carcinoma (Grade 2), involving the blue inked (anterior) and yellow inked (medial) margins. Other margins negative. See Surgical Pathology Cancer Case Summary. Recommendation Surgical consult of the right breast (positive margins) MTDD
--- NOTE | 2020-01-30 18:40 | MM ---
EXAMINATION TYPE: MG pre op needle loc RT DATE OF EXAM: 01/30/2020 COMPARISON: NONE CLINICAL HISTORY: Abnormal mammogram, known cancer TECHNIQUE: Needle localization with wire placement and surgical excision of area of concern in the right breast. FINDINGS: The procedure of needle localization with wire placement for surgical excision was explained to the patient. Risk, benefits, and alternatives were discussed. An informed consent was then obtained. A timeout was performed. The overlying skin was prepped and draped in usual sterile fashion. Lidocaine 1% was used as anesthetic into the skin and subcutaneous tissue up to the level of area of concern. A 7 cm needle was used. This was placed via a lateral approach under mammographic guidance. Subsequent 90 degrees mammogram show the needle to be in satisfactory position relative to the targeted area. The wire was placed through the needle and the needle was withdrawn. The wire was fixed to patient's skin. Images were marked for surgeon. The patient tolerated the procedure well without any immediate complication. Specimen: The wire and the targeted density and core marker are identified within the specimen mammogram. IMPRESSION: 1. Successful wire localization and excision. Recommendations: 1. Recommendations are pending pathology results. Pathology Results: Malignant A. RIGHT AXILLARY CONTENTS: Three of eight axillary lymph nodes positive for metastasis. Size of largest metastatic deposit measures 19 mm. B. RIGHT BREAST, LUMPECTOMY: Invasive moderately differentiated ductal carcinoma (Grade 2), involving the blue inked (anterior) and yellow inked (medial) margins. Other margins negative. See Surgical Pathology Cancer Case Summary. Recommendation Surgical consult of the right breast (positive margins) [facility]PITALMindy
--- NOTE | 2020-01-30 18:42 | P.OP ---
Date of Procedure: 01/30/20 Preoperative Diagnosis: Right breast cancer upper outer quadrant Postoperative Diagnosis: Same Procedure(s) Performed: Axillary node dissection, partial mastectomy Anesthesia: MELINA Surgeon: Reshma Potter Estimated Blood Loss (ml): 30 IV fluids (ml): 1,300 Pathology: other (Axillary tissue, breast tissue) Condition: stable Disposition: same day Indications for Procedure: Right breast cancer Operative Findings: Right breast tumor extending to skin Description of Procedure: The patient is a 69-year-old white female with a right breast cancer causing skin dimpling in the upper outer quadrant region. Additionally she had a core biopsy of the lesion in the breast as well as the lesion and did not axilla and both were positive for cancer. She is going to undergo an axillary node dissection as well as a lumpectomy with excision of skin. She understands the risks and benefits and wishes to proceed. The inferior was approached initially. Incision was made in the axillary skin hairline. This was carried through the skin and subcutaneous tissue. Dissection was performed to the pectoralis major muscle. This was followed to the pectoralis minor muscle. was followed superiorly to the axillary vein. The tissues were swept inferiorly being careful to identify and preserve the thoracodorsal and long thoracic nerves. Several intercostal brachial nerves and vessels were taken in the process. These were clamped and ligated. The specimen was removed and the tip localize the node of concern was removed with the specimen. Radiograph of the specimen revealed the arachnoid had been removed. The wound was irrigated. Deep tissues were closed using a 3-0 Vicryl suture. Subcutaneous tissue was closed with 3-0 Vicryl suture. Skin was closed with 4-0 Monocryl. The area of the upper outer quadrant breast cancer was addressed. An elliptical incision was made with resection of the skin secondary to involvement of the skin by the tumor. Wide excision around the area was performed. The neoprobe which had localized the area was excised with the specimen. Dissection was performed posteriorly to the pectoralis major muscle. Following this the specimen was painted for orientation. Radiograph revealed the area of concern about removed was obtained. The wound was evaluated for hemostasis. After we assured that this was attained was well irrigated. Titanium clips were placed. The deep tissues were closed using 3-0 Vicryl suture. This was followed by closure of the subcutaneous tissue with 3-0 Vicryl suture. The skin was closed with 4-0 Monocryl. Prior to closure #10 CLINTON drain was placed which extended into the axilla. This drain both the lumpectomy site and the axillary dissection site. Was secured using a nylon suture. Patient tolerated procedure in stable condition. All instrument and sponge counts were correct at the end of the case.
--- NOTE | 2020-01-30 18:44 | P.DS ---
Providers Attending physician: Reshma Potter Primary care physician: Nancy Chavez Plan - Discharge Summary Discharge Rx Participant: No New Discharge Prescriptions: No Action OXcarbazepine [Trileptal] 300 mg PO BID PARoxetine HCL [Paxil] 40 mg PO HS clonazePAM [KlonoPIN] 1 - 2 mg PO HS PRN PRN Reason: Anxiety Isosorbide Mononitrate ER [Imdur] 30 mg PO QAM Carvedilol [Coreg] 3.125 mg PO AC-BID traZODone HCL [TraZODone HCl] 50 - 100 mg PO HS Lisinopril [Zestril] 10 mg PO QAM Insulin Glargine,Hum.rec.anlog [Lantus Solostar] 5 unit SQ HS Atorvastatin [Lipitor] 80 mg PO DAILY Ondansetron HCl [Zofran] 8 mg PO Q12H PRN #30 tab PRN Reason: Nausea And Vomiting Clopidogrel [Plavix] 75 mg PO DAILY Omeprazole 20 mg PO QAM Aspirin 81 mg PO DAILY Discharge Medication List OXcarbazepine [Trileptal] 300 mg PO BID 06/24/16 [History] PARoxetine HCL [Paxil] 40 mg PO HS 06/24/16 [History] clonazePAM [KlonoPIN] 1 - 2 mg PO HS PRN 07/15/16 [History] Carvedilol [Coreg] 3.125 mg PO AC-BID 09/02/17 [History] Isosorbide Mononitrate ER [Imdur] 30 mg PO QAM 09/02/17 [History] traZODone HCL [TraZODone HCl] 50 - 100 mg PO HS 08/22/18 [History] Atorvastatin [Lipitor] 80 mg PO DAILY 11/29/19 [History] Insulin Glargine,Hum.rec.anlog [Lantus Solostar] 5 unit SQ HS 11/29/19 [History] Lisinopril [Zestril] 10 mg PO QAM 11/29/19 [History] Ondansetron HCl [Zofran] 8 mg PO Q12H PRN #30 tab 12/02/19 [Rx] Aspirin 81 mg PO DAILY 01/29/20 [History] Clopidogrel [Plavix] 75 mg PO DAILY 01/29/20 [History] Omeprazole 20 mg PO QAM 01/29/20 [History] Follow up Appointment(s)/Referral(s): Reshma Potter MD [STAFF PHYSICIAN] - 1 Week Activity/Diet/Wound Care/Special Instructions: do not drive until seen by Dr. Pelayo teach drain care; drain and record ouptput BID and as needed may shower after 48 hours wear bra at all times
[2020-01-30 19:05] VITALS: TEMP 97.1
[2020-01-30] MEDS ORDERED: HYDROmorphone 0.5 MG/0.5 ML SYRINGE IVP ONE (19:12)
[2020-01-30 19:22] LABS: Glucose,Whole Blood 224 mg/dL (75-99)
[2020-01-30 19:33] VITALS: RESP 18
[2020-01-30 19:41] VITALS: BP 118/58; PULSE 67
--- NOTE | 2020-02-02 16:04 | P.PN ---
Progress Note - Text Progress Note Date: 02/02/20 I received a phone call from the patient today complaining of pain in the axillary area of the incision. She is also very anxious that she has one of 8 [place] left and it is the weakened. The patient states she has a CLINTON drain with minimal output. She does not feel any swelling in the axilla or breast area. I have contacted the patient's daughter as well. She states she the patient has had some anxiety today. I have agreed to give her a prescription for pain medication. I have told them both that if she has persistent pain she should go to the emergency department. The patient is approximately 45 minutes from here and is unable to comme in at this time prior to the clinic closing. Again if the patient has any persistent pain or questions she should go immediately to the emergency department.
--- NOTE | 2020-02-02 16:05 | MM ---
EXAMINATION TYPE: MG surgical specimen RT DATE OF EXAM: 01/30/2020 COMPARISON: Mammogram 01/30/2020 CLINICAL HISTORY: Abnormal biopsy TECHNIQUE: Specimen: The wire and the targeted surgical clip are identified within the specimen mammogram. IMPRESSION: 1. Successful wire localization and excision. Recommendations: 1. Recommendations are pending pathology results. Pathology Results: Malignant A. RIGHT AXILLARY CONTENTS: Three of eight axillary lymph nodes positive for metastasis. Size of largest metastatic deposit measures 19 mm. B. RIGHT BREAST, LUMPECTOMY: Invasive moderately differentiated ductal carcinoma (Grade 2), involving the blue inked (anterior) and yellow inked (medial) margins. Other margins negative. See Surgical Pathology Cancer Case Summary. Recommendation Surgical consult of the right breast (positive margins) DARREND
== END 2020-01-30 20:01 | disposition home or self-care (01) ==
LOC: OR 09:54
PROVIDERS: ATTEND Surgery
DX: C50.411 Malignant neoplasm of upper-outer quadrant of right female breast (principal); C77.3 Secondary and unspecified malignant neoplasm of axilla and upper limb lymph nodes; Z17.0 Estrogen receptor positive status [ER+]; I25.2 Old myocardial infarction; I25.10 Atherosclerotic heart disease of native coronary artery without angina pectoris; E11.9 Type 2 diabetes mellitus without complications; F41.9 Anxiety disorder, unspecified; F31.9 Bipolar disorder, unspecified; G43.909 Migraine, unspecified, not intractable, without status migrainosus; K21.9 Gastro-esophageal reflux disease without esophagitis; F17.210 Nicotine dependence, cigarettes, uncomplicated; I25.5 Ischemic cardiomyopathy; E78.2 Mixed hyperlipidemia; Z88.5 Allergy status to narcotic agent; Z91.040 Latex allergy status; Z79.02 Long term (current) use of antithrombotics/antiplatelets; Z79.82 Long term (current) use of aspirin; Z79.899 Other long term (current) drug therapy; Z80.3 Family history of malignant neoplasm of breast; Z87.01 Personal history of pneumonia (recurrent)
CPT/HCPCS: 19301; 38525; 88307; 76098; 76999; 38792; A9520; J2250; J1644; J1100; J2405; J2001; J3010; J2370; J0330; J2704; J1170

== ENCOUNTER → 2020-02-15 | Outpatient (CLI) | payer MEDICARE, OTHER ==
--- NOTE | 2020-02-15 11:16 | P.PN ---
Progress Note - Text Progress Note Date: 02/15/20 [place] [id number] underwent a right breast lumpectomy and axillary dissection. The axillary nodes were positive for metastasis. The patient's lumpectomy revealed positive anterior and medial margins. The anterior margin was the skin and skin was removed as no further resection was necessary anteriorly. However we would recommend additional medial margin be obtained. The patient's CLINTON drain was left in place last week as the output was still greater than 40 mL for 2 consecutive days. At this time is minimal as per the patient. Physical exam: Incisions right breast and axilla: Dry CLINTON site clean and dry CLINTON drain removed Impression: 1. 69-year-old white female status post right breast lumpectomy and axillary node dissection positive margin 2. Left try nearly over fracture 3. Family history breast cancer 4. Patient history of MALT lymphoma 5. Diabetes 6. Patient on aspirin and Plavix 7. Oncotype 22, patient refuses anything that would result in loss of her hair Plan: reexcision medial margin right breast, patient understands that if margin is again positive this may result recommendation for mastectomy. Risks and benefits of the procedure discussed. CC: Nancy Chavez
[2020-02-15 11:46] VITALS: BP 110/67; PULSE 57; RESP 18; TEMP 97.7
--- NOTE | 2020-02-16 12:25 | P.PN ---
Subjective Progress Note Date: 02/16/20 Principal diagnosis: Positive margin right breast cancer stage II right breast cancer Vanesa is a 69 year old white female seen in consultation for Dr. Chavez on 09-08-19, who presented for breast evaluation secondary to feeling a lump in her right breast. She stated it had been there for several months. It is becoming painful. She believed she was able to feel more than one lump. Radiographic evaluation was performed and on mammogram and a 2.1 x 1.7 cm lesion was noted in the right breast in the upper outer quadrant area. This was confirmed by ultrasound which revealed the lesion to be approximately 2.1 cm in size. The other 2 areas that the patient states that she can feel something and were not seen radiographically either on mammogram or ultrasound. The patient did have an enlarged lymph node noted radiographically both on mammogram and ultrasound in the right axilla. She does not feel anything of concern in the left breast. An ultrasound core biopsy was performed on [id number]. The lesion in the left breast at 10:00 was a grade 2 infiltrating ductal adenocarcinoma. The lesion additional in the 10 o'clock position also was infiltrating ductal carcinoma. She had a right axillary node biopsy which also revealed moderately differentiated grade 2 infiltrating carcinoma associated with foci of residual lymph node parenchyma. The lesion is ER positive WI negative and HER-2 negative. It is a grade 2 lesion. The patient was seen in consultation with medical oncology. She would not accept any treatment leading to hair loss. An oncotype DX study was recommended. This was performed and her Oncotype score was 22. The patient's case was delayed secondary to the herman virus and the operating room's being shutdown. During that time interval the patient fractured her left ankle. It was a tri malleolus fracture which required surgical intervention. She has been given clearance for surgery from orthopedic surgery. It was necessary that she have surgery for this. She underwent a [place] [id number]. The axillary nodes were positive for metastasis. The patient's lumpectomy revealed positive anterior and medial margins. The anterior margin was the skin his skin had been removed so no further resection is necessary anteriorly. However we recommend additional medial margin be obtained. The patient's CLINTON drain in the axilla was removed and [id number]. The patient is seen in conjunction with her daughter on today's visit and this is explained to the daughter. Family History: mother: breast cancer 68 Patient with a history of MALT lymphoma in 2012 patient breast cancer at 69 Hormonal History: menarche: 12 , breast fed no, age at first: 16 menopause: 48 BCP: no hormones: no Surgical History: 1. Coronary stents, 2 years (takes aspirin and plavix) Medical History: 1. two MS 2. DM 3. anxiety/depression Social History: smoke: 1/PPD, for 50 years alcohol: none drugs; negative - Constitutional Constitutional: Reports night sweats - EENT Eyes: bilateral blurred vision, denies pain Ears: bilateral: decreased hearing, deny: tinnitus Ears, nose, mouth and throat: Reports headache, Denies sore throat - Breasts Breasts: bilateral: as per HPI - Cardiovascular Comment: two MS - Respiratory Comment: smoker Respiratory: Reports cough - Gastrointestinal Gastrointestinal: Denies abdominal pain, Denies diarrhea, Denies nausea, Denies vomiting - Genitourinary (Female) Comment: UTI Genitourinary: Denies dysuria, Denies hematuria - Menstruation Menstruation: Reports postmenopausal - Musculoskeletal Comment: arthritis - Integumentary Integumentary: Reports pruritus - Neurological Neurological: Denies numbness, Denies weakness - Psychiatric Psychiatric: Reports anxiety, Reports depression - Endocrine Comment: diabetes - Hematologic/Lymphatic Comment: Aspirin and Plavix - Allergic/Immunologic Allergic/Immunologic: Reports as per HPI Objective - Vital Signs Vital signs: Vital Signs Temp 97.7 F 02/15/20 11:38 Pulse 57 L 02/15/20 11:38 Resp 18 02/15/20 11:38 BP 110/67 02/15/20 11:38 Pulse Ox 97 02/15/20 11:38 Intake & Output 02/15/20 02/16/20 02/16/20 18:59 06:59 18:59 Weight 63.503 kg - Exam BMI 24.8 - Constitutional General appearance: Present: average body habitus - EENT Eyes: Present: EOMI ENT: Present: hearing grossly normal - Neck Neck: Present: normal ROM - Respiratory Respiratory: bilateral: CTA - Cardiovascular Heart sounds: normal: S1, S2 - Gastrointestinal General gastrointestinal: Present: soft - Integumentary Integumentary Comment(s): Incision right axilla and breast clean and dry Integumentary: Present: normal turgor - Musculoskeletal Musculoskeletal: Present: gait normal - Psychiatric Psychiatric: Present: A&O x's 3 - Additional findings Additional findings: Breast exam: Right breast: Incision axilla and right breast clean and dry Left breast: Multi-positional exam no dominant masses or nodules of concern Left axilla: No adenopathy of concern Assessment and Plan Assessment: Impression: 1. Positive medial margin right breast lumpectomy 2. Family history of breast cancer 3. Patient personal history of multiple lymphoma 4. Diabetes 5. Patient on aspirin and Plavix 6. Recent left tri malleolar fracture Plan: 1. Reexcision medial margin right breast The skin benefits of the procedure discussed with the patient and her daughter. They understand that if the margin is again positive we may recommend a mastectomy. Risks include but are not limited to bleeding, infection, reaction to the anesthetic. CC: Dr. Mark Chavez
== END ==
LOC: WWCWWP 10:47
PROVIDERS: ATTEND Surgery
DX: Z53.9 Procedure and treatment not carried out, unspecified reason (principal)

== ENCOUNTER 2020-02-20 09:17 | Day surgery (SDC) | payer MEDICARE, OTHER ==
[2020-02-19 14:10] VITALS: BMI 24.7
[~2020-02-20 09:17] MED LIST changes: -HEPARIN SODIUM,PORCINE 5,000 UNIT/ML 1 ML VIAL SQ ONE; -Pre Op ABX Message 1 EACH MISC MISCELLANE ONE
[2020-02-20] MEDS ORDERED: ONDANSETRON 4 MG/2 ML VIAL ONE (09:52)
[2020-02-20] MEDS ORDERED: HEPARIN SODIUM,PORCINE 5,000 UNIT/ML 1 ML VIAL ONE (09:52)
[2020-02-20] MEDS ORDERED: LIDOCAINE 1% (10MG/ML) FOR IV START INTRADERMA ONE (10:05)
[2020-02-20 10:07] LABS: Glucose,Whole Blood 128 mg/dL (75-99)
[2020-02-20] MEDS: HEPARIN SODIUM,PORCINE 5,000 UNIT/ML 1 ML VIAL SQ ONE ×2 (10:15→10:27)
[2020-02-20] MEDS ORDERED: LIDOCAINE 1% INJ 10MG/ML (20 ML MDV) ONE (11:39)
[2020-02-20] MEDS ORDERED: HYDROmorphone (PF) 1 MG/ML ONE (11:39)
[2020-02-20] MEDS ORDERED: ePHEDrine SULFATE/0.9% NACL/PF 50 MG/5 ML SYRINGE IV ONE (11:39)
[2020-02-20] MEDS ORDERED: PROPOFOL 10 MG/ML 20 ML VIAL IV ONE (11:39)
[2020-02-20] MEDS ORDERED: fentaNYL (PF) 50 MCG/ML 2 ML AMP ONE (11:39)
[2020-02-20] MEDS ORDERED: MIDAZOLAM 2 MG/2 ML VIAL ONE (11:39)
[2020-02-20] MEDS ORDERED: SUCCINYLCHOLINE CHLORIDE 100 MG/5 ML SYR IV ONE (11:39)
--- NOTE | 2020-02-20 12:01 | P.NAPBC ---
NAPBC Queries - NAPBC Queries Was patient's case review presented at [facility] tumor board? If no, comment.: Yes Was patient's pathology reviewed at [facility]? If no, comment.: Yes Was breast conservation surgery offered? If no, comment.: Yes Was sentinel node biopsy offered? If no, comment.: No (positive node) Was diagnosis confirmed by percutaneous core biopsy? If no, comment.: Yes Is patient mastectomy patient?: No Was a preop referral to reconstructive surgeon offered?: No (patient for lumpectomy) Clinical Stage: [id number]
[2020-02-20] MEDS ORDERED: LIDOCAINE 1% INJ 10MG/ML (20 ML MDV) SQ ONE ×2 (12:18→12:58)
[2020-02-20] MEDS ORDERED: LACTATED RINGERS 1,000 ML IV ONE (12:57)
--- NOTE | 2020-02-20 13:01 | P.OP ---
Date of Procedure: 02/20/20 Preoperative Diagnosis: Patient with positive medial margin on recent lumpectomy from the right breast stage II cancer Postoperative Diagnosis: Same Procedure(s) Performed: Reexcision medial margin right breast Anesthesia: MELINA Surgeon: Reshma Potter Estimated Blood Loss (ml): 10 IV fluids (ml): 750 Pathology: other (Breast tissue) Condition: stable Disposition: same day Indications for Procedure: Patient is a 69-year-old white female who underwent a lumpectomy of the right breast and on pathology medial margin was noted to be positive, she she also had anterior margin positive however anterior margin included skin and we could not take further tissue anteriorly therefore reexcision of medial margin was recommended. Patient understood risks and benefits and wished to proceed Operative Findings: Dense breast tissue Description of Procedure: The patient was taken to the operating room and following induction of general anesthesia the right breast was prepped and draped in a sterile fashion. The prior incision for lumpectomy was reopened. Upon reopening this the tissue had been previously closed from the anterior tibia posterior pillars. This closure was taken down. The dissection was performed to the medial aspect of the dissection. Titanium clip was noted at the medial level of resection as well. The entire wall of the medial resection was excised with approximately a 1 cm margin. No obvious gross tumor was identified. Titanium clips were placed at the new margin. Again tissue was mobilized superiorly and inferiorly. Approximately 15 cm were mobilized superiorly and 10 cm mobilized inferiorly. These pedicles were brought back together. The wound was evaluated for hemostasis. After assured that hemostasis was attained the subcutaneous tissue was closed using 3-0 Vicryl suture. The skin was closed using 4-0 Monocryl and 4-0 Vicryl suture. An ellipse of skin was removed inferiorly to facilitate a more onco plastic closure. The specimen was painted for orientation. All instrument and sponge counts were correct at the end of the case. The patient tolerated the procedure in stable condition.
--- NOTE | 2020-02-20 13:03 | P.DS ---
Providers Attending physician: Reshma Potter Primary care physician: Nancy Chavez Plan - Discharge Summary Discharge Rx Participant: Yes New Discharge Prescriptions: No Action PARoxetine HCL [Paxil] 40 mg PO DAILY clonazePAM [KlonoPIN] 1 - 2 mg PO HS PRN PRN Reason: Anxiety Isosorbide Mononitrate ER [Imdur] 30 mg PO QAM carvediloL [Coreg] 3.125 mg PO AC-BID traZODone HCL [TraZODone HCl] 50 - 100 mg PO HS PRN PRN Reason: sleep lisinopriL [Zestril] 10 mg PO QAM Insulin Glargine,Hum.rec.anlog [Lantus Solostar] 5 unit SQ HS Atorvastatin [Lipitor] 80 mg PO QAM Ondansetron HCl [Zofran] 8 mg PO Q12H PRN #30 tab PRN Reason: Nausea And Vomiting Omeprazole 20 mg PO QAM Aspirin 81 mg PO DAILY OXcarbazepine [Trileptal] 300 mg PO BID Discharge Medication List PARoxetine HCL [Paxil] 40 mg PO DAILY 06/24/16 [History] clonazePAM [KlonoPIN] 1 - 2 mg PO HS PRN 07/15/16 [History] Isosorbide Mononitrate ER [Imdur] 30 mg PO QAM 09/02/17 [History] carvediloL [Coreg] 3.125 mg PO AC-BID 09/02/17 [History] traZODone HCL [TraZODone HCl] 50 - 100 mg PO HS PRN 08/22/18 [History] Atorvastatin [Lipitor] 80 mg PO QAM 11/29/19 [History] Insulin Glargine,Hum.rec.anlog [Lantus Solostar] 5 unit SQ HS 11/29/19 [History] lisinopriL [Zestril] 10 mg PO QAM 11/29/19 [History] Ondansetron HCl [Zofran] 8 mg PO Q12H PRN #30 tab 12/02/19 [Rx] Aspirin 81 mg PO DAILY 01/29/20 [History] Omeprazole 20 mg PO QAM 01/29/20 [History] OXcarbazepine [Trileptal] 300 mg PO BID 02/19/20 [History] Follow up Appointment(s)/Referral(s): Reshma Potter MD [STAFF PHYSICIAN] - 1 Week Activity/Diet/Wound Care/Special Instructions: With Edwar wrap until seen by Dr. Pelayo May shower after 48 hours and then replace Edwar wrap or surgical bra Discharge Disposition: HOME SELF-CARE
[2020-02-20 13:28] VITALS: TEMP 98.8
[2020-02-20 15:06] VITALS: RESP 16
[2020-02-20 15:36] VITALS: BP 119/73; PULSE 65
== END 2020-02-20 15:50 | disposition home or self-care (01) ==
LOC: OR 09:17
PROVIDERS: ATTEND Surgery
DX: C50.411 Malignant neoplasm of upper-outer quadrant of right female breast (principal); C77.3 Secondary and unspecified malignant neoplasm of axilla and upper limb lymph nodes; N62 Hypertrophy of breast; N64.1 Fat necrosis of breast; N60.31 Fibrosclerosis of right breast; L90.5 Scar conditions and fibrosis of skin; L08.9 Local infection of the skin and subcutaneous tissue, unspecified; E11.9 Type 2 diabetes mellitus without complications; I25.2 Old myocardial infarction; F41.9 Anxiety disorder, unspecified; F31.9 Bipolar disorder, unspecified; F17.210 Nicotine dependence, cigarettes, uncomplicated; H53.8 Other visual disturbances; M19.90 Unspecified osteoarthritis, unspecified site; L29.9 Pruritus, unspecified; K08.89 Other specified disorders of teeth and supporting structures; I25.10 Atherosclerotic heart disease of native coronary artery without angina pectoris; E78.5 Hyperlipidemia, unspecified; K21.9 Gastro-esophageal reflux disease without esophagitis; Z17.0 Estrogen receptor positive status [ER+]; Z85.79 Personal history of other malignant neoplasms of lymphoid, hematopoietic and related tissues; Z87.81 Personal history of (healed) traumatic fracture; Z79.82 Long term (current) use of aspirin; Z79.02 Long term (current) use of antithrombotics/antiplatelets; Z79.4 Long term (current) use of insulin; Z79.899 Other long term (current) drug therapy; Z98.890 Other specified postprocedural states; Z78.0 Asymptomatic menopausal state; Z95.5 Presence of coronary angioplasty implant and graft; Z87.440 Personal history of urinary (tract) infections; Z88.5 Allergy status to narcotic agent; Z91.040 Latex allergy status; Z80.3 Family history of malignant neoplasm of breast; Z80.7 Family history of other malignant neoplasms of lymphoid, hematopoietic and related tissues
CPT/HCPCS: 19301; 88305; 88307; J2250; J1644; J1100; J0690; J2405; J2001; J3010; J1170; J0330; J2704

== ENCOUNTER → 2020-02-23 | Outpatient (CLI) | payer MEDICARE, OTHER ==
--- NOTE | 2020-02-23 11:21 | P.PN ---
Progress Note - Text Progress Note Date: 02/23/20 Vanesa is a 69 year old white female status post re-excision of medial margin of lumpectomy site right breast on 02-20-20. Her pathology did not reveal any residual cancer. She is doing well post procedure. Physical exam: Lungs: Clear Heart: Regular rate and rhythm Incision: Clean and dry mild ecchymosis at the lumpectomy site Impression: 1. Patient status post lumpectomy no evidence of residual cancer at medial margin Plan: 1. Follow-up with radiation oncology 2. Medical oncology recommend any antiestrogen 3. Follow-up care in approximately one week for suture removal CC: DR. Caceres, DR. Nancy Martini
[2020-02-23 11:29] VITALS: BP 118/64; PULSE 59; RESP 20; TEMP 98.3
== END | disposition home or self-care (01) ==
LOC: WWCWWP 10:57
PROVIDERS: ATTEND Surgery
DX: Z53.9 Procedure and treatment not carried out, unspecified reason (principal)

== ENCOUNTER → 2020-03-06 | Outpatient (CLI) | payer MEDICARE, OTHER ==
--- NOTE | 2020-03-06 13:07 | P.PN ---
Progress Note - Text Progress Note Date: 03/06/20 Vanesa is a 69 year old white female status post re-excision of medial margin of lumpectomy site right breast on 02-20-20. Her pathology did not reveal any residual cancer. She is doing well post procedure. Physical exam: Lungs: Clear Heart: Regular rate and rhythm Incision: Clean and dry mild ecchymosis at the lumpectomy site Impression: 1. Patient status post lumpectomy no evidence of residual cancer at medial margin 2. Suture removal Plan: 1. Follow-up with radiation oncology/ patient states she will be seeing radiation oncology and is canceling this appointment 2. Medical oncology recommend any antiestrogen; to continue antiestrogen medication as per medical oncology 3. Follow-up care in 2 months CC: DR. Caceres, DR. Nancy Martini
[2020-03-06 13:24] VITALS: BP 94/60; PULSE 55; RESP 18; TEMP 98.8
== END | disposition home or self-care (01) ==
LOC: WWCWWP 12:36
PROVIDERS: ATTEND Surgery
DX: Z53.9 Procedure and treatment not carried out, unspecified reason (principal)

== ENCOUNTER 2020-09-12 12:17 | Inpatient (IN) | payer MEDICARE, OTHER ==
[2020-09-12] MEDS ORDERED: SODIUM CHLORIDE 0.9% 1,000 ML IV STA (12:33)
[2020-09-12] MEDS ORDERED: KETOROLAC 15 MG/ML 1 ML VIAL IVP STA (12:33)
[2020-09-12] MEDS ORDERED: HYDROmorphone 1 MG/ML 1 ML SYRINGE IVP STA (12:34)
[2020-09-12] MEDS ORDERED: ONDANSETRON 4 MG/2 ML VIAL IVP STA (12:35)
--- NOTE | 2020-09-12 12:40 | ED ---
General Adult HPI - General Chief complaint: Back Pain/Injury Stated complaint: back & hip pain Time Seen by Provider: 09/12/20 12:20 Source: patient, RN notes reviewed, old records reviewed Mode of arrival: wheelchair Limitations: no limitations - History of Present Illness Initial comments: This is a 70-year-old female with past medical history significant for breast cancer. Patient states she had surgery for breast cancer but refusing chemotherapy. Patient states over the last couple of weeks she's had severe lower back pain and it is bilateral in her pelvic region. Patient states the pain rotates down both legs into her knees and occasionally around into her abdomen. Patient denies any fever chills or cough per patient denies any chest pain difficult breathing shortness of breath. Patient denies any headache patient denies numbness or weakness. Patient states the pain is severe but typically with movement. Patient denies any recent injury or trauma - Related Data Home Medications Medication Instructions Recorded Confirmed PARoxetine HCL [Paxil] 40 mg PO DAILY 06/24/16 09/12/20 Isosorbide Mononitrate ER [Imdur] 30 mg PO QAM 09/02/17 09/12/20 carvediloL [Coreg] 3.125 mg PO AC-BID 09/02/17 09/12/20 traZODone HCL [TraZODone HCl] 100 mg PO HS PRN 08/22/18 09/12/20 Atorvastatin [Lipitor] 80 mg PO HS 11/29/19 09/12/20 Insulin Glargine,Hum.rec.anlog 5 unit SQ HS 11/29/19 09/12/20 [Lantus Solostar] lisinopriL [Zestril] 10 mg PO QAM 11/29/19 09/12/20 Omeprazole 20 mg PO QAM 01/29/20 09/12/20 OXcarbazepine [Trileptal] 300 mg PO BID 02/19/20 09/12/20 Aspirin EC [Ecotrin Low Dose] 81 mg PO DAILY 09/12/20 09/12/20 Ergocalciferol [Vitamin D2 (1250 1,250 mcg PO Q7D 09/12/20 09/12/20 Mcg = 25869 Iu)] HYDROcodone/APAP 5-325MG [[place] 1 tab PO Q8H PRN 09/12/20 09/12/20 5-325] clonazePAM [KlonoPIN] 0.5 - 1 mg PO DAILY 09/12/20 09/12/20 Previous Rx's Medication Instructions Recorded ondansetron HCL [Zofran] 8 mg PO Q12H PRN #30 tab 12/02/19 Allergies Allergy/AdvReac Type Severity Reaction Status Date / Time codeine AdvReac Nausea & Verified 09/12/20 12:52 Vomiting Latex, Natural Rubber AdvReac Rash/Hives/ Verified 09/12/20 12:52 itching Review of Systems ROS Statement: Those systems with pertinent positive or pertinent negative responses have been documented in the HPI. ROS Other: All systems not noted in ROS Statement are negative. Past Medical History Past Medical History: Coronary Artery Disease (CAD), Diabetes Mellitus, GERD/Reflux, Hyperlipidemia, Myocardial Infarction ([place]) Additional Past Medical History / Comment(s): Dx rt breast CA December 2019-painful no or chemo, fx ankle November 2019-has boot (states boot cannot be removed)on rt ankle-uses walker and WBAT, hx7-16-15 pancreatitis. other MIGRAINES, chronic back pain, gout Last Myocardial Infarction Date:: unk History of Any Multi-Drug Resistant Organisms: None Reported Past Surgical History: Breast Surgery, Heart Catheterization With Stent, Orthopedic Surgery Additional Past Surgical History / Comment(s): ORIF rt ankle , EGD/COLONOSCOPY, bone marrow bx-neg, TOTAL OF 3 CARDIAC STENTS, breast bx; right breast lumpectomy w/AND 01/30/20; Past Anesthesia/Blood Transfusion Reactions: No Reported Reaction Additional Past Anesthesia/Blood Transfusion Reaction / Comment(s): clausterphobia Date of Last Stent Placement:: UNK Past Psychological History: Anxiety, Bipolar, Depression Smoking Status: Current every day smoker Past Alcohol Use History: None Reported Past Drug Use History: None Reported - Past Family History Son(s) Family Medical History: Cancer Father Family Medical History: Diabetes Mellitus, Myocardial Infarction (OR) Mother Family Medical History: Cancer, Myocardial Infarction (OR) General Exam - General Exam Comments Initial Comments: GENERAL: Patient is well-developed and well-nourished. Patient is nontoxic and well- hydrated and is in moderate distress. ENT: Neck is soft and supple. No significant lymphadenopathy is noted. Oropharynx is clear. Moist mucous membranes. Neck has full range of motion without eliciting any pain. EYES: The sclera were anicteric and conjunctiva were pink and moist. Extraocular movements were intact and pupils were equal round and reactive to light. Eyelids were unremarkable. PULMONARY: Unlabored respirations. Good breath sounds bilaterally. No audible rales rhonchi or wheezing was noted. CARDIOVASCULAR: There is a regular rate and rhythm without any murmurs gallops or rubs. ABDOMEN: Soft and nontender with normal bowel sounds. SKIN: Skin is clear with no lesions or rashes and otherwise unremarkable. NEUROLOGIC: Patient is alert and oriented x3. Cranial nerves II through XII are grossly intact. Motor and sensory are also intact. Normal speech, volume and content. Symmetrical smile. MUSCULOSKELETAL: No pain with palpation of the back any movement of the legs or having her flex back or bending at the waist increased back pain. LYMPHATICS: No significant lymphadenopathy is noted PSYCHIATRIC: Normal psychiatric evaluation. Limitations: no limitations Course Vital Signs 09/12/20 09/12/20 12:18 13:39 Temperature 97.9 F Pulse Rate 69 64 Respiratory 18 20 Rate Blood Pressure 98/64 184/83 O2 Sat by Pulse 99 100 Oximetry Medical Decision Making - Medical Decision Making CT of the abdomen pelvis show no acute abnormality. Patient received multiple doses of Dilaudid and a dose of oral. Patient was unable to tolerate the pain and was unable to get out of bed without being extremely tearful. Patient stated she did not feel safe at home and wanted to be admitted to see a back surgeon. I spoke with [facility]. They agreed to accept the patient admitted the patient in reverse I consult with Dr. Butler - Lab Data Result diagrams: 09/12/20 12:46 09/12/20 12:46 Lab Results 09/12/20 09/12/20 Range/Units 12:46 12:46 WBC 9.3 (3.8-10.6) k/uL RBC 4.41 (3.80-5.40) m/uL Hgb 14.6 (11.4-16.0) gm/dL Hct 41.2 (34.0-46.0) % MCV 93.2 (80.0-100.0) fL MCH 33.2 (25.0-35.0) pg MCHC 35.6 (31.0-37.0) g/dL RDW 12.2 (11.5-15.5) % Plt Count 260 (150-450) k/uL MPV 6.4 Neutrophils % 71 % Lymphocytes % 22 % Monocytes % 4 % Eosinophils % 2 % Basophils % 1 % Neutrophils # 6.6 (1.3-7.7) k/uL Lymphocytes # 2.0 (1.0-4.8) k/uL Monocytes # 0.4 (0-1.0) k/uL Eosinophils # 0.2 (0-0.7) k/uL Basophils # 0.1 (0-0.2) k/uL Sodium 127 L (137-145) mmol/L Potassium 5.1 (3.5-5.1) mmol/L Chloride 92 L (98-107) mmol/L Carbon Dioxide 22 (22-30) mmol/L Anion Gap 13 mmol/L BUN 17 (7-17) mg/dL Creatinine 1.12 H (0.52-1.04) mg/dL Est GFR (CKD-EPI)AfAm 57 (>60 ml/min/1.73 sqM) Est GFR (CKD-EPI)NonAf 49 (>60 ml/min/1.73 sqM) Glucose 129 H (74-99) mg/dL Calcium 10.0 (8.4-10.2) mg/dL Total Bilirubin 0.6 (0.2-1.3) mg/dL AST 24 (14-36) U/L ALT 21 (4-34) U/L Alkaline Phosphatase 140 H (38-126) U/L Total Protein 7.7 (6.3-8.2) g/dL Albumin 5.0 (3.5-5.0) g/dL Disposition Clinical Impression: Intractable back pain Disposition: ADMITTED IP TO THIS HOSP Referrals: Nancy Chavez MD [Primary Care Provider] - 1-2 days Time of Disposition: 15:37
[2020-09-12 12:54] LABS: Basophils # (A) 0.1 k/uL (0-0.2); Basophils % (A) 1 %; Eosinophils # (A) 0.2 k/uL (0-0.7); Eosinophils % (A) 2 %; HCT 41.2 % (34.0-46.0); HGB 14.6 gm/dL (11.4-16.0); Lymphocytes % (A) 22 %; MCH 33.2 pg (25.0-35.0); MCHC 35.6 g/dL (31.0-37.0); MCV 93.2 fL (80.0-100.0); Mean Platelet Volume 6.4; Monocytes # (A) 0.4 k/uL (0-1.0); Monocytes % (A) 4 %; Neutrophils # (A) 6.6 k/uL (1.3-7.7); Neutrophils % (A) 71 %; Platelet Count 260 k/uL (150-450); RBC 4.41 m/uL (3.80-5.40); RDW 12.2 % (11.5-15.5); WBC 9.3 k/uL (3.8-10.6)
[2020-09-12 13:02] LABS: Potassium 5.1 mmol/L (3.5-5.1); Total Bilirubin 0.6 mg/dL (0.2-1.3); Total Protein 7.7 g/dL (6.3-8.2)
[2020-09-12] MEDS ORDERED: HYDROmorphone 0.5 MG/0.5 ML SYRINGE IVP STA (13:47)
--- NOTE | 2020-09-12 13:55 | CT ---
EXAMINATION TYPE: CT abdomen pelvis w con DATE OF EXAM: 09/12/2020 HISTORY: right side pain, low back pain CT DLP: 763.1mGycm Automated Exposure Control for Dose Reduction was Utilized. CONTRAST: CT scan of the abdomen and pelvis is performed without oral but with IV Contrast, patient injected wi th 80 mL of Isovue 300. COMPARISON: CT abdomen and pelvis September 02, 2017 FINDINGS: LUNG BASES: Coronary artery calcification redemonstrated. LIVER/GB: No significant abnormality is appreciated. PANCREAS: No significant abnormality is seen. SPLEEN: Small inferior splenule again seen. ADRENALS: No significant abnormality is seen. KIDNEYS: No significant abnormality is seen. BOWEL: Suboptimal evaluation bowel without enteric contrast. No suspicious small or large bowel dilat ation. Small bowel feces sign terminal ileum consistent with delayed passage of ingested material to colonic level. Mikw-[id number] fecal prominence in the right left and transverse colon. UTERUS/ADNEXA: Anteverted uterus. Left-sided pelvic phlebolith. LYMPH NODES: No greater than 1cm abdominal or pelvic lymph nodes are appreciated. OSSEOUS STRUCTURES: Nyjn-ep-lfzqipwo disc space narrowing L1-L2 level. Facet arthropathy mid to lower lumbar spine. OTHER: Moderate calcified plaque of the aorta extends into branch vessels. IMPRESSION: Overall nonobstructive bowel gas pattern. Mild to moderate diffuse colonic fecal stasis.
[2020-09-12 15:15] LABS: Appearance,Urine Clear (Clear); Bilirubin,Urine Negative (Negative); Blood,Urine Negative (Negative); Color,Urine Yellow; Glucose,Urine (UA) Negative (Negative); Ketones,Urine 1+ (Negative); Leukocyte Esterase,Urine Negative (Negative); Nitrite,Urine Negative (Negative); PH, Urine 6.5 (5.0-8.0); Protein,Urine Trace (Negative); Urobilinogen,Urine <2.0 mg/dL (<2.0)
[2020-09-12] MEDS ORDERED: SODIUM CHLORIDE 0.9% 1,000 ML IV ONE (15:38)
[2020-09-12 15:41] LABS: Specific Gravity,Urine >1.050 (1.001-1.035)
[2020-09-12] MEDS ORDERED: traZODone HCL 100 MG TAB PO PRN (16:48)
[2020-09-12] MEDS ORDERED: DEXAMETHASONE SOD PHOSPHATE 10 MG/ML 1 ML VIAL IV STA (16:50)
[2020-09-12 17:31] LABS: Glucose,Whole Blood 85 mg/dL (75-99)
[2020-09-12] MEDS: DEXAMETHASONE SOD PHOSPHATE 4 MG/ML 1 ML VIAL IV SCH ×2 (17:42→23:38)
[2020-09-12] MEDS: KETOROLAC 15 MG/ML 1 ML VIAL IVP SCH ×2 (17:46→23:38)
[2020-09-12] MEDS: carvediloL 3.125 MG TAB PO SCH (17:46)
[2020-09-12] MEDS ORDERED: ERGOCALCIFEROL 1,250 MCG (50,000 IU) CAPSULE PO SCH (18:00)
[2020-09-12] MEDS: HYDROmorphone 0.5 MG/0.5 ML SYRINGE IVP PRN (21:57)
[2020-09-12] MEDS: ATORVASTATIN 80 MG TAB PO SCH (21:59)
[2020-09-12] MEDS: OXcarbazepine 300 MG TAB PO SCH (22:00)
[2020-09-13] MEDS: HYDROmorphone 0.5 MG/0.5 ML SYRINGE IVP PRN ×6 (03:14→22:00)
[2020-09-13] MEDS: DEXAMETHASONE SOD PHOSPHATE 4 MG/ML 1 ML VIAL IV SCH ×3 (05:38→18:26)
[2020-09-13] MEDS: KETOROLAC 15 MG/ML 1 ML VIAL IVP SCH ×3 (05:39→18:26)
[2020-09-13 07:38] LABS: Glucose,Whole Blood 129 mg/dL (75-99)
[2020-09-13] MEDS: INSULIN ASPART (NovoLOG) 100 UNIT/ML VIAL SQ SCH ×3 (07:58→18:24)
[2020-09-13] MEDS: OXcarbazepine 300 MG TAB PO SCH ×2 (08:05→19:50)
[2020-09-13] MEDS: ASPIRIN 81 MG PO SCH (08:05)
[2020-09-13] MEDS: ISOSORBIDE MONONITRATE ER 30 MG TAB.ER.24H PO SCH (08:05)
[2020-09-13] MEDS: carvediloL 3.125 MG TAB PO SCH ×2 (08:05→18:27)
[2020-09-13] MEDS: PARoxetine 20 MG TAB PO SCH (08:05)
[2020-09-13] MEDS ORDERED: lisinopriL 10 MG TAB PO SCH (09:00)
[2020-09-13] MEDS: SODIUM CHLORIDE 0.9% 1,000 ML IV SCH ×3 (11:34→22:01)
[2020-09-13 12:06] LABS: Glucose,Whole Blood 189 mg/dL (75-99)
--- NOTE | 2020-09-13 12:46 | P.HPIM ---
History of Present Illness 70-year-old female came in with the severe back pain with diabetic retinopathy symptoms. CT of the abdomen was done which showed some fecal stasis along with the L1-L2 level [id number] displacement of narrowing with facet arth ropathy. Patient is complaining of severe 10/10 pain. Patient pain is bit better compared to yesterday. Patient was started on Decadron pain medications subsequently admitted with neurology consult. Patient denied any loss of bowel or bladder continence. Patient does have history of breast cancer had lumpectomy in the past patient was supposed to follow-up with oncology never followed. As patient doesn't want chemotherapy. Patient is bit hyponatremic attributed to be dehydrated denied any nausea vomiting diarrhea. Review of Systems REVIEW OF SYSTEMS: CONSTITUTIONAL: No fever, no malaise, no fatigue. HEENT: No recent visual problems or hearing problems. Denied any sore throat. CARDIOVASCULAR: No chest pain, orthopnea, PND, no palpitations, no syncope. PULMONARY: No shortness of breath, no cough, no hemoptysis. GASTROINTESTINAL: No diarrhea, no nausea, no vomiting, no abdominal pain. NEUROLOGICAL: No headaches, no weakness, no numbness. HEMATOLOGICAL: Denies any bleeding or petechiae. GENITOURINARY: Denies any burning micturition, frequency, or urgency. MUSCULOSKELETAL/RHEUMATOLOGICAL: As mentioned in HPI ENDOCRINE: Denies any polyuria or polydipsia. The rest of the 14-point review of systems is negative. Past Medical History Past Medical History: Coronary Artery Disease (CAD), Diabetes Mellitus, GERD/Reflux, Hyperlipidemia, Myocardial Infarction (MD) Additional Past Medical History / Comment(s): Dx rt breast CA December 2019-painful no or chemo, fx ankle November 2019-has boot (states boot cannot be removed)on rt ankle-uses walker and WBAT, hx7-16-15 pancreatitis. other MIGRAINES, chronic back pain, gout Last Myocardial Infarction Date:: unk History of Any Multi-Drug Resistant Organisms: None Reported Past Surgical History: Breast Surgery, Heart Catheterization With Stent, Orthopedic Surgery Additional Past Surgical History / Comment(s): ORIF rt ankle -2019, EGD /COLONOSCOPY, bone marrow bx-neg, TOTAL OF 3 CARDIAC STENTS, breast bx; right breast lumpectomy w/AND 01/30/20; Past Anesthesia/Blood Transfusion Reactions: No Reported Reaction Additional Past Anesthesia/Blood Transfusion Reaction / Comment(s): richy sterphobia Date of Last Stent Placement:: UNK Past Psychological History: Anxiety, Bipolar, Depression Additional Psychological History / Comment(s): mood disorder Smoking Status: Current every day smoker Past Alcohol Use History: None Reported Additional Past Alcohol Use History / Comment(s): Started smoking in her teens; 2ppd Past Drug Use History: None Reported Additional Drug Use History / Comment(s): Pt. states recreational marijuana use "once every couple months" - Past Family History Son(s) Family Medical History: Cancer Father Family Medical History: Diabetes Mellitus, Myocardial Infarction (MD) Mother Family Medical History: Cancer, Myocardial Infarction (MD) Medications and Allergies Home Medications Medication Instructions Recorded Confirmed Type PARoxetine HCL [Paxil] 40 mg PO DAILY 06/24/16 09/12/20 History Isosorbide Mononitrate ER [Imdur] 30 mg PO QAM 09/02/17 09/12/20 History carvediloL [Coreg] 3.125 mg PO AC-BID 09/02/17 09/12/20 History traZODone HCL [TraZODone HCl] 100 mg PO HS PRN 08/22/18 09/12/20 History Atorvastatin [Lipitor] 80 mg PO HS 11/29/19 09/12/20 History Insulin Glargine,Hum.rec.anlog 5 unit SQ HS 11/29/19 09/12/20 History [Lantus Solostar] lisinopriL [Zestril] 10 mg PO QAM 11/29/19 09/12/20 History ondansetron HCL [Zofran] 8 mg PO Q12H PRN #30 tab 12/02/19 09/12/20 Rx Omeprazole 20 mg PO QAM 01/29/20 09/12/20 History OXcarbazepine [Trileptal] 300 mg PO BID 02/19/20 09/12/20 History Aspirin EC [Ecotrin Low Dose] 81 mg PO DAILY 09/12/20 09/12/20 History Ergocalciferol [Vitamin D2 (1250 1,250 mcg PO Q7D 09/12/20 09/12/20 History Mcg = 15234 Iu)] HYDROcodone/APAP 5-325MG [[place] 1 tab PO Q8H PRN 09/12/20 09/12/20 History 5-325] clonazePAM [KlonoPIN] 0.5 - 1 mg PO DAILY 09/12/20 09/12/20 History Allergies Allergy/AdvReac Type Severity Reaction Status Date / Time codeine AdvReac Nausea & Verified 09/12/20 12:52 Vomiting Latex, Natural Rubber AdvReac Rash/Hives/ Verified 09/12/20 12:52 itching Physical Exam Vitals: Vital Signs Temp Pulse Pulse Resp BP BP Pulse Ox 09/13/20 07:00 97.6 F 68 16 134/83 97 09/13/20 03:20 97.6 F 63 150/76 100 09/12/20 18:55 98.1 F 62 137/92 98 09/12/20 17:15 99.0 F 63 16 161/79 99 09/12/20 16:18 98.3 F 67 18 96/60 97 09/12/20 15:39 69 18 160/73 96 09/12/20 13:39 64 20 184/83 100 Intake and Output 09/12/20 09/13/20 09/13/20 22:59 06:59 14:59 Other: Voiding Method Bedside Commode Bedside Commode # Voids 1 2 Weight 58.967 kg PHYSICAL EXAMINATION: GENERAL: The patient is alert and oriented x3, not in any acute distress. Well developed, well nourished. And is tearful and says she has severe back pain HEENT: Pupils are round and equally reacting to light. EOMI. No scleral icterus. No conjunctival pallor. Normocephalic, atraumatic. No pharyngeal erythema. No thyromegaly. CARDIOVASCULAR: S1 and S2 present. No murmurs, rubs, or gallops. PULMONARY: Chest is clear to auscultation, no wheezing or crackles. ABDOMEN: Soft, nontender, nondistended, normoactive bowel sounds. No palpable organomegaly. MUSCULOSKELETAL: There is mild tenderness to paraspinal area bilaterally in the lower lumbar spine. EXTREMITIES: No cyanosis, clubbing, or pedal edema. NEUROLOGICAL: Gross neurological examination did not reveal any focal deficits. SKIN: No rashes. Results CBC & Chem 7: 09/12/20 12:46 09/12/20 12:46 Labs: Abnormal Lab Results - Last 24 Hours (Table) 09/12/20 09/12/20 09/13/20 Range/Units 12:46 15:00 07:35 Sodium 127 L (137-145) mmol/L Chloride 92 L (98-107) mmol/L Creatinine 1.12 H (0.52-1.04) mg/dL Glucose 129 H (74-99) mg/dL POC Glucose (mg/dL) 129 H (75-99) mg/dL Alkaline Phosphatase 140 H (38-126) U/L Ur Specific [place] >1.050 H (1.001-1.035) Urine Protein Trace H (Negative) Urine Ketones 1+ H (Negative) 09/13/20 Range/Units 12:04 Sodium (137-145) mmol/L Chloride (98-107) mmol/L Creatinine (0.52-1.04) mg/dL Glucose (74-99) mg/dL POC Glucose (mg/dL) 189 H (75-99) mg/dL Alkaline Phosphatase (38-126) U/L Ur Specific [place] (1.001-1.035) Urine Protein (Negative) Urine Ketones (Negative) Thrombosis Risk Factor Assmnt - Choose All That Apply Each Risk Factor Represents 2 Points: Age 61-74 years Other congenital or acquired thrombophilia - If yes, enter type in comment: No Thrombosis Risk Factor Assessment Total Risk Factor Score: 2 Thrombosis Risk Factor Assessment Level: Low Risk Assessment and Plan Plan: -Severe back pain with radiculopathy: Continue with Decadron anti-inflammatory medications and opiate pain medications and neurology will evaluate the patient is also consult back surgeon to evaluate the patient. -History of breast cancer doesn't appear to have any metastatic disease patient breast cancer is presently active will consult oncology to assess, stage and prognosticate had cancer. Patient in the past apparently declined chemotherapy -Acute renal failure prerenal azotemia continue with IV fluids. -Hypertension -Diabetes mellitus -Hyperlipidemia -Gastroesophageal reflux disease -DVT prophylaxis with Lovenox
[2020-09-13] MEDS: ONDANSETRON 4 MG TAB PO PRN (13:25)
--- NOTE | 2020-09-13 14:56 | P.CNOR ---
History of Present Illness - HPI Consult date: 09/13/20 Consult reason: low back pain History of present illness: Patient is a 70-year-old female who is seen and examined at bedside. She says that she has been having severe back pain for the past several weeks. She is uncertain as to the specific time. She denies any specific incident or trauma. Over a year ago she did have a fall and broke her ankle for which she had to have surgery but that does not seem to be giving her problems at this point. She is complaining of severe pain at her lower back at times up to 10 out of 10 pain. She feels that it is somewhat better than it was yesterday. She had been admitted to the hospital and started on steroids. She denies any loss of bowel bladder function she denies any changes in bowel bladder function. She says the pain extends down to her gluteus and down the back of her thighs to her knees on both sides. It is equal on both sides. She feels it wraps around her legs completely. She does not feel weak in her lower extremities. She says the pain doesn't go upper back to some degree. She denies any fevers chills or night sweats. She denies prior injury in her lower back. Review of Systems As stated per HPI. She does have history of breast cancer and lumpectomy but she had declined any chemotherapy. Past Medical History Past Medical History: Coronary Artery Disease (CAD), Diabetes Mellitus, GERD/Reflux, Hyperlipidemia, Myocardial Infarction ([place]) Additional Past Medical History / Comment(s): Dx rt breast CA December 2019-painful no or chemo, fx ankle November 2019-has boot (states boot cannot be removed)on rt ankle-uses walker and WBAT, hx7-16-15 pancreatitis. other MIGRAINES, chronic back pain, gout Last Myocardial Infarction Date:: unk History of Any Multi-Drug Resistant Organisms: None Reported Past Surgical History: Breast Surgery, Heart Catheterization With Stent, Orthopedic Surgery Additional Past Surgical History / Comment(s): ORIF rt ankle -2019, EGD/COLONOSCOPY, bone marrow bx-neg, TOTAL OF 3 CARDIAC STENTS, breast bx; right breast lumpectomy w/AND 01/30/20; Past Anesthesia/Blood Transfusion Reactions: No Reported Reaction Additional Past Anesthesia/Blood Transfusion Reaction / Comm: clausterphobia Date of Last Stent Placement:: UNK Past Psychological History: Anxiety, Bipolar, Depression Additional Psychological History / Comment(s): mood disorder Smoking Status: Current every day smoker Past Alcohol Use History: None Reported Additional Past Alcohol Use History / Comment(s): Started smoking in her teens; 2ppd Past Drug Use History: None Reported Additional Drug Use History / Comment(s): Pt. states recreational marijuana use "once every couple months" - Past Family History Son(s) Family Medical History: Cancer Father Family Medical History: Diabetes Mellitus, Myocardial Infarction (NE) Mother Family Medical History: Cancer, Myocardial Infarction (NE) Medications and Allergies Home Medications Medication Instructions Recorded Confirmed Type PARoxetine HCL [Paxil] 40 mg PO DAILY 06/24/16 09/12/20 History Isosorbide Mononitrate ER [Imdur] 30 mg PO QAM 09/02/17 09/12/20 History carvediloL [Coreg] 3.125 mg PO AC-BID 09/02/17 09/12/20 History traZODone HCL [TraZODone HCl] 100 mg PO HS PRN 08/22/18 09/12/20 History Atorvastatin [Lipitor] 80 mg PO HS 11/29/19 09/12/20 History Insulin Glargine,Hum.rec.anlog 5 unit SQ HS 11/29/19 09/12/20 History [Lantus Solostar] lisinopriL [Zestril] 10 mg PO QAM 11/29/19 09/12/20 History ondansetron HCL [Zofran] 8 mg PO Q12H PRN #30 tab 12/02/19 09/12/20 Rx Omeprazole 20 mg PO QAM 01/29/20 09/12/20 History OXcarbazepine [Trileptal] 300 mg PO BID 02/19/20 09/12/20 History Aspirin EC [Ecotrin Low Dose] 81 mg PO DAILY 09/12/20 09/12/20 History Ergocalciferol [Vitamin D2 (1250 1,250 mcg PO Q7D 09/12/20 09/12/20 History Mcg = 91666 Iu)] HYDROcodone/APAP 5-325MG [[place] 1 tab PO Q8H PRN 09/12/20 09/12/20 History 5-325] clonazePAM [KlonoPIN] 0.5 - 1 mg PO DAILY 09/12/20 09/12/20 History Allergies Allergy/AdvReac Type Severity Reaction Status Date / Time codeine AdvReac Nausea & Verified 09/12/20 12:52 Vomiting Latex, Natural Rubber AdvReac Rash/Hives/ Verified 09/12/20 12:52 itching Physical Examination Osteopathic Statement: *. No significant issues noted on an osteopathic structural exam other than those noted in the History and Physical/Consult. - L Spine: dermatomal strength & reflexes bilateral Strength: hip flexion: 5/5 (Her low back there is no tenderness to palpation over the midline. She has some paravertebral spasm. She is able to lift her legs up off the bed independently with 5 out of 5 strength.) Strength: knee extension: 5/5 (5 out of 5 strength at dorsiflexion plantarflexion and EHL flexion and knee extension. No pain with internal or external rotation of her hips. Compartments are soft throughout) Results - Labs Labs: Abnormal Lab Results - Last 24 Hours (Table) 09/12/20 09/13/20 09/13/20 Range/Units 15:00 07:35 12:04 POC Glucose (mg/dL) 129 H 189 H (75-99) mg/dL Ur Specific [place] >1.050 H (1.001-1.035) Urine Protein Trace H (Negative) Urine Ketones 1+ H (Negative) H & H 09/12/20 Range/Units 12:46 Hgb 14.6 (11.4-16.0) gm/dL Hct 41.2 (34.0-46.0) % Result Diagrams: 09/12/20 12:46 09/12/20 12:46 - Diagnostic results CT Scan - lumbar: report reviewed (I do not see any obvious bony erosion or fracture. There is no evidence of any obvious mass at the vertebral bodies.), image reviewed (Should abdomen pelvis computed tomography scan and her lumbar spine is reviewed. There is some disc degeneration L1 to. There is some disc degeneration and facet arthrosis L4 5 with some evidence of central and foraminal stenosis. There is no evidence of fracture. I do not see any obvious bony e) Assessment and Plan Assessment: Low back pain Nondescript lower extremity radicular symptoms Degenerative disc disease at L1-2 and L4 5 Stenosis L4 5 with facet arthrosis history of breast cancer without any prior treatment Plan: Low back pain Nondescript lower extremity radicular symptoms Degenerative disc disease at L1-2 and L4 5 Stenosis L4 5 with facet arthrosis history of breast cancer without any prior t reatment The patient has been having low back symptoms and somewhat vague lower extremity symptoms of the past few weeks. She may be having some improvement with the steroid. With her history and her vague symptoms I think it is worthwhile to obtain further imaging with an MRI of her lumbar spine. She has history of breast cancer without any treatment and is difficult to fully discern the etio logy of her symptoms. She has good strength in her bilateral lower extremities and I do not think that she would be a good surgical candidate at this point. I would not plan any urgent surgical intervention for her. She may be a candidate for interventional pain management for her back pain and will have pain management service see her to see if that is appropriate. I think that she is okay to continue with physical therapy and mobilization as I do not see any obvious instability at her spine. From a spine surgery standpoint we will follow up on the imaging studies and follow with you for now.
--- NOTE | 2020-09-13 15:46 | P.CNNES ---
History of Present Illness Consult date: 09/13/20 Requesting physician: Mati Mayes Reason for Consult: Excruciating back pain History of Present Illness: Patient is a 70-year-old female with past medical history of breast cancer, came to the hospital yesterday at 12:17 PM for a couple day history of severe low back pain in his bilateral in her pelvic region. Patient tells me that her symptoms started several weeks ago, and has been progressively getting worse. Initially she felt it will go away and used to take Tylenol, but the symptoms has got worse. Patient states her symptoms starts in the tailbone region, then goes up to the lower back across, and then wraps around the lower lateral abdominal region/groin and hip region and extends down to the knees bilaterally, left more than right. Patient states that both legs feels weak. No falls. The pain is worse with any movement and rates it 9-10/10. She also gets intermittent numbness that comes and goes from upper thighs down to the feet bilaterally. Denies any constant area of numbness. When the pain extends to the knees, it gets very severe. Denies any problem with bowel or bladder contro l. Patient was mainly telling about symptoms in the lower back and the legs. However when I asked about any pain in the dorsal and upper spine, patient states that mid and upper back also hurts significantly, she states that the lower back pain extends to the dorsal spine and the neck and shoulder to the elbows bilaterally, right more than left. No numbness. States "whole body hurts". Patient states that since she fell and broke her ankle last year, she has been having headaches every single day. The headache lasts for about 3-5 days, goes away for couple days or more and then comes back. She gets nausea but no vomiting. No light or noise sensitivity. She does get blurred vision which she attributes to the diabetes. Denies any previous history of migraines. Patient states that when she fell, she landed on her "foot, butts and the back", and thinks may have hit her head as well. Patient was diagnosed with breast cancer around April or May 2020. She underwent mastectomy, and her lymph nodes were also involved. Patient was recommended chemotherapy but she declined. Patient states that prior to the diagnosis of breast cancer, she had fell while walking in the dark at night and broke her left ankle. She required placement of the rods in the left ankle. Patient denies any fevers, chills or cough or chest pain or difficulty breathing. No headaches, numbness or weakness. Pain is severe but typically with movement. Vital signs on arrival blood pressure 98/64, pulse rate 69 temperature 97.9 Computed tomography scan of abdomen and pelvis shows overall nonobstructive bowel gas pattern. Mild to moderate diffuse colonic fecal stasis. CT head of brain from 11/29/2019 showed no acute process or midline shift. CT of the cervical spine showed no acute fracture or dislocation evident in the cervical spine. Patient's blood tests shows normal CBC, PT/PTT, sodium 127, normal BUN, creatinine 1.12, calcium is 10.0 which is upper limits of normal. Hepatic panel normal, last hemoglobin A1c 7.0 on 11/29/2019. Thyroid functions normal. Patient does take Paxil 40 mg, Coreg, trazodone 100 mg at bedtime, lisinopril Steff insulin, Lipitor 80 mg, Trileptal 300 mg twice a day, Glide 5/325 every 8 hours, clonazepam 0.5 mg to 1 mg daily. Aspirin 81 mg. Patient states that she has smoked 1 pack per day since age 16-19. Therefore has smoked > 50 pack years. She has diabetes for 4 years, hypertension denies any alcohol use. Review of Systems As above in detail. Denies any fever or chills. Denies any double vision, hoarseness, sore throat, dysphagia. Denies any shortness of breath, wheezing or cough. Denies abdominal pain except for lower abdomen as mentioned. Patient has arthritis. All other review of systems unremarkable. Past Medical History Past Medical History: Coronary Artery Disease (CAD), Diabetes Mellitus, GERD/Reflux, Hyperlipidemia, Myocardial Infarction ([place]) Additional Past Medical History / Comment(s): Dx rt breast CA December 2019-painful no or chemo, fx ankle November 2019-has boot (states boot cannot be removed)on rt ankle-uses walker and WBAT, hx7-16-15 pancreatitis. other MIGRAINES, chronic back pain, gout Last Myocardial Infarction Date:: unk History of Any Multi-Drug Resistant Organisms: None Reported Past Surgical History: Breast Surgery, Heart Catheterization With Stent, Orthopedic Surgery Additional Past Surgical History / Comment(s): ORIF rt ankle -2019, EGD/COLONOSCOPY, bone marrow bx-neg, TOTAL OF 3 CARDIAC STENTS, breast bx; right breast lumpectomy w/AND 01/30/20; Past Anesthesia/Blood Transfusion Reactions: No Reported Reaction Additional Past Anesthesia/Blood Transfusion Reaction / Comment(s): clausterphobia Date of Last Stent Placement:: UNK Past Psychological History: Anxiety, Bipolar, Depression Additional Psychological History / Comment(s): mood disorder Smoking Status: Current every day smoker Past Alcohol Use History: None Reported Additional Past Alcohol Use History / Comment(s): Started smoking in her teens; 2ppd Past Drug Use History: None Reported Additional Drug Use History / Comment(s): Pt. states recreational marijuana use "once every couple months" - Past Family History Son(s) Family Medical History: Cancer Father Family Medical History: Diabetes Mellitus, Myocardial Infarction ([place]) Mother Family Medical History: Cancer, Myocardial Infarction ([place]) Medications and Allergies Home Medications Medication Instructions Recorded Confirmed Type PARoxetine HCL [Paxil] 40 mg PO DAILY 06/24/16 09/12/20 History Isosorbide Mononitrate ER [Imdur] 30 mg PO QAM 09/02/17 09/12/20 History carvediloL [Coreg] 3.125 mg PO AC-BID 09/02/17 09/12/20 History traZODone HCL [TraZODone HCl] 100 mg PO HS PRN 08/22/18 09/12/20 History Atorvastatin [Lipitor] 80 mg PO HS 11/29/19 09/12/20 History Insulin Glargine,Hum.rec.anlog 5 unit SQ HS 11/29/19 09/12/20 History [Lantus Solostar] lisinopriL [Zestril] 10 mg PO QAM 11/29/19 09/12/20 History ondansetron HCL [Zofran] 8 mg PO Q12H PRN #30 tab 12/02/19 09/12/20 Rx Omeprazole 20 mg PO QAM 01/29/20 09/12/20 History OXcarbazepine [Trileptal] 300 mg PO BID 02/19/20 09/12/20 History Aspirin EC [Ecotrin Low Dose] 81 mg PO DAILY 09/12/20 09/12/20 History Ergocalciferol [Vitamin D2 (1250 1,250 mcg PO Q7D 09/12/20 09/12/20 History Mcg = 55180 Iu)] HYDROcodone/APAP 5-325MG [Glide 1 tab PO Q8H PRN 09/12/20 09/12/20 History 5-325] clonazePAM [KlonoPIN] 0.5 - 1 mg PO DAILY 09/12/20 09/12/20 History Allergies Allergy/AdvReac Type Severity Reaction Status Date / Time codeine AdvReac Nausea & Verified 09/12/20 12:52 Vomiting Latex, Natural Rubber AdvReac Rash/Hives/ Verified 09/12/20 12:52 itching Physical Examination - Vital Signs Vital Signs: Vital Signs Temp Pulse Pulse Resp BP BP Pulse Ox 09/13/20 07:00 97.6 F 68 16 134/83 97 09/13/20 03:20 97.6 F 63 150/76 100 09/12/20 18:55 98.1 F 62 137/92 98 09/12/20 17:15 99.0 F 63 16 161/79 99 09/12/20 16:18 98.3 F 67 18 96/60 97 09/12/20 15:39 69 18 160/73 96 09/12/20 13:39 64 20 184/83 100 09/12/20 12:18 97.9 F 69 18 98/64 99 Intake and Output 09/12/20 09/13/20 09/13/20 22:59 06:59 14:59 Other: Voiding Method Bedside Commode Bedside Commode # Voids 1 2 Weight 58.967 kg On examination patient is an elderly female, in no acute distress. She is alert and awake,, appears somewhat depressed. Speech and language functions are normal, attention, concentration and fund of knowledge is adequate. On cranial nerve examination pupils are round and reacting to light, visual scott are full on confrontation, extraocular muscles are intact with no nystagmus. Face is symmetric, tongue protrudes to the midline. Palatal elevation and sensation normal, hearing and shoulder shrug normal. On muscle strength testing there is no pronator drift and the strength is completely normal in the arms and legs distally and proximally including hip flexion, knees ankles and toes. Reflexes however are very brisk, 3 in the upper limbs, 3 at the knees, 2+ ankles and plantars are downgoing. Patient has obvious cross adduction of the knees. Sensory touch is equal with no neglect. No ataxia for [id number]-[id number]-[id number] testing, tone and bulk of muscles normal. Gait deferred. On general examination there is no carotid bruit or murmur, peripheral pulses are present, abdomen soft nontender, chest is clear. No peripheral edema. Results - Laboratory Findings CBC and BMP: 09/12/20 12:46 09/12/20 12:46 Abnormal Lab Findings: Abnormal Labs 09/12/20 09/12/20 09/13/20 12:46 15:00 07:35 Sodium 127 L Chloride 92 L Creatinine 1.12 H Glucose 129 H POC Glucose (mg/dL) 129 H Alkaline Phosphatase 140 H Ur Specific [place] >1.050 H Urine Protein Trace H Urine Ketones 1+ H Assessment and Plan Assessment: * 70-year-old female with several week history of progressive lower back pain, that extends to the groin down to the legs up to the knees bilaterally. Symptoms are worse with activities/movements. Patient does admit to having diffuse body pains including the upper spine, neck shoulders and arms as well. Also has chronic headaches. Exact cause remains uncertain. Rule out bone metastasis, fibromyalgia, polymyalgia, lumbar radiculopathy. * Stage III breast cancer, status post surgery, declined chemotherapy. * Tobacco use of > 50 pack years * Diabetes Plan: * Patient is undergoing MRI of the lumbar spine with and without contrast. * I would also suggest bone scan to rule out any bone metastasis. * We will check B12, folate, methylmalonic acid, PTH, vitamin D, ESR, CRP, rheumatoid factor.
--- NOTE | 2020-09-13 16:05 | P.CONS ---
History of Present Illness - Reason for Consult Consult date: 09/13/20 Breast Cancer Requesting physician: Gracia Sy - Chief Complaint Bone Pain - History of Present Illness Mrs. Vanesa Cole was last seen through telemedicine visit with Dr. Atwood in November 2019 and at that time options for treatment of her new diagnosed breast cancer w ere given, unfortunetly the following viisits she did not present for and has not returned calls or followed up since. Vanesa have been C/O increasing abdominal girth for last year, had increased an dominal pain and burning, she had recent EGD which was positive for H Pylori and Malt Lymphoma. She denied fever, chills, night sweats or enexplained weight loss. to the contrary, the patient gained up to 20 lbs in last month. The patient is on Prev-pack for H Pylori. She had negative staging Bone marrow study and CT of Chest ( Prior Ct Scan of Abdomen/Pelvis were negative ). She continues to have stomach " Upset " with bloated stomach, she had EGD Done ; Bx reveiled resolution oh both H Pylori and MALT The patient bloating and abdominal pain persists. 10/27/19: Attempted to contact patient 3 times unsuccessfully 11/24/19: Vanesa presented with a palpable UOQ R breast mass felt initially a year ago but failed to take actions. She had diagnostic mammogram on Sep 07 revealing 2.1X1.7X1.6 cm suspicious mass at 9-10 o'clock of R breast confirmed by US. She had US-Guided core biopsy on 09/20/2019 revealing Grade II invasive ductal carcinoma ER/MS 91%/0% [id number] 0 (Negative). Bx of R axillary LN revealed Grade II invasive ductal carcinoma as well. The patient stated being nervous, C/O pain in lateral R breast. She denies constitutional symptoms of malignancy. Has increasing nausea for last 6 months, denied having EGD in last few years, she has history of MALT lymphoma in 2011. Right Lumpectomy completed in February with Dr. Pierce Ortega. Oncotype was 22. Apparently patient minimally remembers her multiple appointments with Dr. Atwood, She never did adhere to the recommendations requested, she states she did not want treatment with chemo and assumed hormonal therapy was chemo. She w as re-educated on this today. The concern now is a recurrent malignant process. Since her creatinine is mildly increased we will recheck prior to further staging. Review of Systems All systems: negative Constitutional: Reports as per HPI Past Medical History Past Medical History: Coronary Artery Disease (CAD), Diabetes Mellitus, GERD/Reflux, Hyperlipidemia, Myocardial Infarction ([place]) Additional Past Medical History / Comment(s): Dx rt breast CA December 2019-painful no or chemo, fx ankle November 2019-has boot (states boot cannot be removed)on rt ankle-uses walker and WBAT, hx7-16-15 pancreatitis. other MIGRAINES, chronic back pain, gout Last Myocardial Infarction Date:: unk History of Any Multi-Drug Resistant Organisms: None Reported Past Surgical History: Breast Surgery, Heart Catheterization With Stent, Orthopedic Surgery Additional Past Surgical History / Comment(s): ORIF rt ankle -2019, EGD/COLONOSCOPY, bone marrow bx-neg, TOTAL OF 3 CARDIAC STENTS, breast bx; right breast lumpectomy w/AND 01/30/20; Past Anesthesia/Blood Transfusion Reactions: No Reported Reaction Additional Past Anesthesia/Blood Transfusion Reaction / Comm: clausterphobia Date of Last Stent Placement:: UNK Past Psychological History: Anxiety, Bipolar, Depression Additional Psychological History / Comment(s): mood disorder Smoking Status: Current every day smoker Past Alcohol Use History: None Reported Additional Past Alcohol Use History / Comment(s): Started smoking in her teens; 2ppd Past Drug Use History: None Reported Additional Drug Use History / Comment(s): Pt. states recreational marijuana use "once every couple months" - Past Family History Son(s) Family Medical History: Cancer Father Family Medical History: Diabetes Mellitus, Myocardial Infarction ([place]) Mother Family Medical History: Cancer, Myocardial Infarction ([place]) Medications and Allergies Home Medications Medication Instructions Recorded Confirmed Type PARoxetine HCL [Paxil] 40 mg PO DAILY 06/24/16 09/12/20 History Isosorbide Mononitrate ER [Imdur] 30 mg PO QAM 09/02/17 09/12/20 History carvediloL [Coreg] 3.125 mg PO AC-BID 09/02/17 09/12/20 History traZODone HCL [TraZODone HCl] 100 mg PO HS PRN 08/22/18 09/12/20 History Atorvastatin [Lipitor] 80 mg PO HS 11/29/19 09/12/20 History Insulin Glargine,Hum.rec.anlog 5 unit SQ HS 11/29/19 09/12/20 History [Lantus Solostar] lisinopriL [Zestril] 10 mg PO QAM 11/29/19 09/12/20 History ondansetron HCL [Zofran] 8 mg PO Q12H PRN #30 tab 12/02/19 09/12/20 Rx Omeprazole 20 mg PO QAM 01/29/20 09/12/20 History OXcarbazepine [Trileptal] 300 mg PO BID 02/19/20 09/12/20 History Aspirin EC [Ecotrin Low Dose] 81 mg PO DAILY 09/12/20 09/12/20 History Ergocalciferol [Vitamin D2 (1250 1,250 mcg PO Q7D 09/12/20 09/12/20 History Mcg = 79320 Iu)] HYDROcodone/APAP 5-325MG [[place] 1 tab PO Q8H PRN 09/12/20 09/12/20 History 5-325] clonazePAM [KlonoPIN] 0.5 - 1 mg PO DAILY 09/12/20 09/12/20 History Allergies Allergy/AdvReac Type Severity Reaction Status Date / Time codeine AdvReac Nausea & Verified 09/12/20 12:52 Vomiting Latex, Natural Rubber AdvReac Rash/Hives/ Verified 09/12/20 12:52 itching Physical Exam Vitals: Vital Signs Temp Pulse Pulse Resp BP BP Pulse Ox 09/13/20 14:31 97.5 F L 69 18 146/60 97 09/13/20 07:00 97.6 F 68 16 134/83 97 09/13/20 03:20 97.6 F 63 150/76 100 09/12/20 18:55 98.1 F 62 137/92 98 09/12/20 17:15 99.0 F 63 16 161/79 99 09/12/20 16:18 98.3 F 67 18 96/60 97 Intake and Output 09/13/20 09/13/20 09/13/20 06:59 14:59 22:59 Intake Total 180 Balance 180 Intake: Oral 180 Other: Voiding Method Bedside Commode # Voids 2 - Constitutional General appearance: cooperative, no acute distress - EENT Eyes: EOMI, PERRLA ENT: NA/AT, normal oropharynx - Neck Neck: normal ROM - Cardiovascular Rhythm: regular Heart sounds: normal: S1, S2 - Gastrointestinal General gastrointestinal: soft, tenderness - Integumentary Integumentary: pale - Neurologic Neurologic: CNII-XII intact - Musculoskeletal lower ext Musculoskeletal: generalized weakness - Psychiatric Psychiatric: A&O x's 3 Results CBC & Chem 7: 09/12/20 12:46 09/12/20 12:46 Labs: Abnormal Lab Results - Last 24 Hours (Table) 09/13/20 09/13/20 Range/Units 07:35 12:04 POC Glucose (mg/dL) 129 H 189 H (75-99) mg/dL CT scan - abdomen: report reviewed Assessment and Plan (1) History of breast cancer Current Visit: Yes Status: Acute Code(s): Z85.3 - PERSONAL HISTORY OF MALIGNANT NEOPLASM OF BREAST SNOMED Code(s): 063149466 (2) Intractable back pain Current Visit: Yes Status: Acute Code(s): M54.9 - DORSALGIA, UNSPECIFIED SNOMED Code(s): 815938210 Plan: Assessment and Recommendations: New Onset back pain and lower extremity weakness: - Ortho is following - MRI is Ordered Recent History of Breast Cancer: - Diagnosed ER+ HER2 neg locally advanced breast cancer with three positive lymph nodes. - She underwent lumpectomy in February, original bx was December 2019 - She opted for no chemo however she never represented to discuss adjuvant hormonal therapy and refused to follow back up despite multiple attempts to reschedule. - There is a concern for recurrent progressive cancer, therefore a bone scan, CT Chest and tumor markers have been ordered. CT chest will be done after recheck of Creatinine Physician Attest: I have completed the full history and physical and agree with above dictation, dictated as a ascribe
[2020-09-13 17:48] LABS: Glucose,Whole Blood 182 mg/dL (75-99)
[2020-09-13 19:39] LABS: Glucose,Whole Blood 167 mg/dL (75-99)
[2020-09-13] MEDS: ATORVASTATIN 80 MG TAB PO SCH (19:46)
[2020-09-13] MEDS: HYDROcodone/APAP 5-325MG 1 EACH TAB PO PRN (19:46)
[2020-09-13] MEDS: INSULIN DETEMIR (LEVEMIR) 100 UNIT/ML SYR SQ SCH (19:48)
[2020-09-13 20:38] LABS: ALT 18 U/L (4-34); AST 24 U/L (14-36); African American GFR (CKD) 66 (>60 ml/min/1.73 sqM); Albumin 3.8 g/dL (3.5-5.0); Albumin/Globulin Ratio 1.7; Alkaline Phosphatase 99 U/L (38-126); Anion Gap 9 mmol/L; Blood Urea Nitrogen 30 mg/dL (7-17); Calcium 8.9 mg/dL (8.4-10.2); Carbon Dioxide 18 mmol/L (22-30); Chloride 100 mmol/L (98-107); Globulin 2.2 g/dL; Glucose 170 mg/dL (74-99); Non-African American GFR(CKD) 57 (>60 ml/min/1.73 sqM); Potassium 4.9 mmol/L (3.5-5.1); Sodium 127 mmol/L (137-145); Total Bilirubin 0.4 mg/dL (0.2-1.3)
[2020-09-13] MEDS ORDERED: LORazepam 2 MG/ML INJ IV PRN (21:57)
[2020-09-14] MEDS: HYDROmorphone 0.5 MG/0.5 ML SYRINGE IVP PRN ×4 (00:25→20:26)
[2020-09-14] MEDS: ONDANSETRON 4 MG TAB PO PRN (00:25)
[2020-09-14] MEDS: DEXAMETHASONE SOD PHOSPHATE 4 MG/ML 1 ML VIAL IV SCH ×5 (00:27→23:33)
[2020-09-14] MEDS: KETOROLAC 15 MG/ML 1 ML VIAL IVP SCH ×5 (00:27→23:33)
[2020-09-14 02:43] LABS: Glucose,Whole Blood 163 mg/dL (75-99)
[2020-09-14 02:50] LABS: Cancer Antigen 153 6.9 U/mL (0.0-32.3)
[2020-09-14 03:48] LABS: C Reactive Protein <0.4 mg/dL (0.0-0.8); Folate, Serum 18.5 ng/mL; Rheumatoid Factor, Qnt 4 IU/mL (0-15)
[2020-09-14 07:00] LABS: Glucose,Whole Blood 152 mg/dL (75-99)
[2020-09-14] MEDS: INSULIN ASPART (NovoLOG) 100 UNIT/ML VIAL SQ SCH ×3 (07:47→17:45)
[2020-09-14] MEDS: PANTOPRAZOLE 40 MG TABLET PO SCH (07:56)
[2020-09-14] MEDS: ASPIRIN 81 MG PO SCH (07:56)
[2020-09-14] MEDS: ISOSORBIDE MONONITRATE ER 30 MG TAB.ER.24H PO SCH (07:57)
[2020-09-14] MEDS: ENOXAPARIN 40 MG/0.4 ML SYRINGE SQ SCH (07:57)
[2020-09-14] MEDS: HYDROcodone/APAP 5-325MG 1 EACH TAB PO PRN (07:57)
[2020-09-14] MEDS: carvediloL 3.125 MG TAB PO SCH ×2 (08:28→17:57)
[2020-09-14] MEDS: PARoxetine 20 MG TAB PO SCH (08:29)
[2020-09-14] MEDS: OXcarbazepine 300 MG TAB PO SCH ×2 (08:29→20:26)
[2020-09-14 09:41] LABS: African American GFR (CKD) 58.1 (60.0-200.0); Albumin/Globulin Ratio 1.74 (1.60-3.17); BUN/Creat Ratio 28.18 Ratio (12.00-20.00); Calcium 9.4 mg/dL (8.7-10.3); Globulin 2.3 g/dL (1.6-3.3); Non-African American GFR(CKD) 50.1 (60.0-200.0); Potassium 5.4 mmol/L (3.5-5.5); Total Bilirubin 0.3 mg/dL (0.3-1.2); Total Protein 6.3 g/dL (6.2-8.2)
[2020-09-14] MEDS ORDERED: hydrALAZINE HCL 25 MG TAB PO STA (09:51)
--- NOTE | 2020-09-14 10:30 | MR ---
EXAMINATION TYPE: MR lumbar spine wo/w con DATE OF EXAM: 09/14/2020 COMPARISON: CT abdomen and pelvis 2 days ago. HISTORY: Low back pain with radiculopathy TECHNIQUE: Multiplanar, multisequence images of the lumbar spine is performed without and with IV contrast, util izing 6 mL intravenous Gadavist FINDINGS: Sagittal images of the lumbar spine show vertebral body heights to remain satisfactory. Ali gnment stable and slightly straightened. Multilevel disc desiccation with mild to moderate multilevel disc space narrowing greatest at L2-L3 and L4-L5 levels. Heterogeneous Modic type I endplate changes at L1-L2 level. Mild to moderate multilevel anterior spurring. No suspicious postcontrast enhancemen t. The conus medullaris is normal in position and signal ending at mid L1 level. Axial images show T12-L1 level to appear within normal limits. Axial images at L1-L2 level show mild to moderate broad disc bulge with right foraminal disc protrusi on component. There is effacement of the anterior thecal sac and asymmetric mild to moderate right-si ded anterior inferior neural foraminal narrowing. Axial images at the L2-L3 level show mild to moderate broad disc bulge and mild facet arthropathy latrice aterally. There is effacement of the anterior thecal sac. There is mild bilateral anterior inferior n eural foraminal narrowing. Axial images at the L3-L4 level show mild/moderate facet degenerative changes and ligamentum flavum h ypertrophy effacing posterior lateral thecal sac. There is gekv-xt-yskylyen broad disc bulge effacing the anterior thecal sac. There is mild to moderate left greater than right bilateral anterior inferi or neural foraminal narrowing. Axial images at L4-L5 level shows moderate facet degenerative changes and ligamentum flavum hypertrop hy. There is qujm-fo-bjqwubge broad disc bulge with central disc protrusion component effaces the ant erior thecal sac. There is mild right and moderate left-sided neural foraminal narrowing. Axial images at L5-S1 level show moderate facet degenerative changes bilaterally. There is central di sc protrusion but spinal canal is preserved. There is moderate bilateral neural foraminal narrowing. Paraspinal muscle bulk is maintained. IMPRESSION: [id number]-pq-daozryyb multilevel degenerative changes greatest in the lower lumbar spine as de tailed above
--- NOTE | 2020-09-14 10:56 | NM ---
EXAMINATION TYPE: NM bone scan whole body DATE OF EXAM: 09/14/2020 COMPARISON: CT abdomen and pelvis 2 days ago HISTORY: History of breast cancer with bone pain. Delayed whole-body scanning was performed following the injection of 24.2 mCi Tc 99m MDP. Images acq uired 3 hours post injection. Whole body images in the anterior and posterior projection along with a dditional projections of the thorax abdomen and pelvis. FINDINGS: No suspicious scintigraphic increase uptake of radiotracer to suggest metastatic disease to the bone or other suspicious abnormality. Findings correlate with recent CT study. Normal excretion. IMPRESSION: As above.
--- NOTE | 2020-09-14 11:42 | P.PN ---
Progress Note - Text Progress Note Date: 09/14/20 Patient's results were reviewed MRI of the lumbar spine with and without contrast revealed mild to moderate multilevel degenerative changes greatest in the lower lumbar spine. No spinal stenosis reported. Bone scan revealed no suspicious scintigraphic increase uptake of radiotracer to suggest metastatic disease to the bone or other suspicious abnormality. Patient's blood test shows normal ESR of 14, C-reactive protein <0.4, PTH intact 69.9 (14-72), vitamin D is elevated 104.1 (30-100), serum calcium is normal 9.4, rheumatoid factor negative. No evidence of polymyalgia rheumatica, RA. Patient has hypervitaminosis D. Recommend patient to decrease dose of replacement (instead of 50,000 units weekly, to 1000 mg daily). Pain management. We will check serum protein electrophoresis. Neurologically clear.
--- NOTE | 2020-09-14 11:53 | P.PN ---
Subjective Progress Note Date: 09/14/20 70-year-old female came in with the severe back pain with diabetic retinopathy symptoms. CT of the abdomen was done which showed some fecal stasis along with the L1-L2 level [id number] displacement of narrowing with facet arthropathy. Patient is complaining of severe 10/10 pain. Patient pain is bit better compared to yesterday. Patient was started on Decadron pain medications subsequently admitted with neurology consult. Patient denied any loss of bowel or bladder continence. Patient does have history of breast cancer had lumpectomy in the past patient was supposed to follow-up with oncology never followed. As patient doesn't want chemotherapy. Patient is bit hyponatremic attributed to be dehydrated denied any nausea vomiting diarrhea. 09/14/2020 Patient is seen and evaluated and follow-up and currently awaiting to undergo MRI of the spine along with bone scan. Multiple medical consultations including orthopedics, oncology, neurology evaluating the patient. No surgical inter vention planned at this time. Awaiting pain management consult patient continues to have pain and discomfort in her back. Waiting PT/OT evaluation as she refused yesterday due to increased nausea. No reports of vomiting noted and continues to have occasional nausea. Review of systems: Constitutional: No reports of fatigue, fever, or chills Cardiovascular: No reports of chest pain or palpitations Respiratory: No reports of shortness of breath or cough GI: Reports intermittent nausea, no reports of vomiting, or diarrhea : No reports of dysuria or retention Neurovascular: No reports of weakness or numbness, reports continued back pain All medications have been reviewed Objective - Vital Signs Vital signs: Vital Signs Temp 98.0 F 09/14/20 07:00 Pulse 88 09/14/20 07:00 Resp 20 09/14/20 07:00 BP 189/71 09/14/20 07:00 Pulse Ox 89 L 09/14/20 07:00 Intake & Output 09/13/20 09/14/20 09/14/20 18:59 06:59 18:59 Intake Total 380 Output Total 275 Balance 380 -275 Intake: Oral 380 Output: Urine 275 Other: Voiding Method Bedside Commode Bedside Commode # Voids 2 1 - Exam GENERAL: The patient is alert and oriented x3, not in any acute distress. Well developed, well nourished. Very emotional and hypersensitive and tearful with conversation HEENT: Pupils are round and equally reacting to light. EOMI. No scleral icterus. No conjunctival pallor. Normocephalic, atraumatic. No pharyngeal erythema. No thyromegaly. CARDIOVASCULAR: S1 and S2 present. No murmurs, rubs, or gallops. PULMONARY: Chest is clear to auscultation, no wheezing or crackles. ABDOMEN: Soft, nontender, nondistended, normoactive bowel sounds. No palpable organomegaly. MUSCULOSKELETAL: There is mild tenderness to paraspinal area bilaterally in the lower lumbar spine. EXTREMITIES: No cyanosis, clubbing, or pedal edema. NEUROLOGICAL: Gross neurological examination did not reveal any focal deficits. SKIN: No rashes. - Labs CBC & Chem 7: 09/12/20 12:46 09/14/20 06:23 Labs: Abnormal Lab Results - Last 24 Hours (Table) 09/13/20 09/13/20 09/13/20 Range/Units 12:04 17:10 17:10 Sodium 127 L (137-145) mmol/L Carbon Dioxide 18 L (22-30) mmol/L BUN 30 H (7-17) mg/dL Est GFR (CKD-EPI)AfAm (60.0-200.0) Est GFR (CKD-EPI)NonAf (60.0-200.0) BUN/Creatinine Ratio (12.00-20.00) Ratio Glucose 170 H (74-99) mg/dL POC Glucose (mg/dL) 189 H (75-99) mg/dL Total Protein 6.0 L (6.3-8.2) g/dL Vitamin D 25-Hydroxy 104.1 H (30.0-100.0) ng/mL 09/13/20 09/13/20 09/14/20 Range/Units 17:43 19:36 02:41 Sodium (137-145) mmol/L Carbon Dioxide (22-30) mmol/L BUN (7-17) mg/dL Est GFR (CKD-EPI)AfAm (60.0-200.0) Est GFR (CKD-EPI)NonAf (60.0-200.0) BUN/Creatinine Ratio (12.00-20.00) Ratio Glucose (74-99) mg/dL POC Glucose (mg/dL) 182 H 167 H 163 H (75-99) mg/dL Total Protein (6.3-8.2) g/dL Vitamin D 25-Hydroxy (30.0-100.0) ng/mL 09/14/20 09/14/20 Range/Units 06:23 06:58 Sodium 132 L (137-145) mmol/L Carbon Dioxide 18.0 L (22-30) mmol/L BUN 31.0 H (7-17) mg/dL Est GFR (CKD-EPI)AfAm 58.1 L (60.0-200.0) Est GFR (CKD-EPI)NonAf 50.1 L (60.0-200.0) BUN/Creatinine Ratio 28.18 H (12.00-20.00) Ratio Glucose 135 H (74-99) mg/dL POC Glucose (mg/dL) 152 H (75-99) mg/dL Total Protein (6.3-8.2) g/dL Vitamin D 25-Hydroxy (30.0-100.0) ng/mL Assessment and Plan Assessment: -Severe back pain with radiculopathy: Continue with Decadron anti-inflammatory medications and opiate pain medications. Orthopedic surgery evaluating the patient and recommending pain management and consult is pending. Neurology evaluated the patient and MRI was negative for anything emergent and will sign off. Patient to follow-up outpatient with neurology as needed -History of breast cancer doesn't appear to have any metastatic disease patient breast cancer is presently active. Oncology following and ordered further w orkup which is pending at this time. Patient was lost to follow-up and has not received treatment on breast cancer. Patient in the past apparently declined chemotherapy -Acute renal failure prerenal azotemia continue with IV fluids, creatinine is 1.1 -Hypertension -Diabetes mellitus, continue with long-acting along with sliding scale continue to monitor before meals and at bedtime -Hyperlipidemia -Gastroesophageal reflux disease -DVT prophylaxis with Lovenox -GI prophylaxis: Protonix Plan: Continue with current medications. Orthopedic surgery along with neurology following and oncology. Pain management consult placed in pending at this time. She continues to have pain and discomfort of her lower back and recently underwent MRI which is pending. Patient also underwent bone scan and awaiting report. Continue with IV fluids and will repeat a.m. labs. Continue to monitor blood sugars and treat accordingly with sliding scale and long-acting. Encourage oral intake. PT/OT to evaluate the patient
[2020-09-14 11:54] LABS: Glucose,Whole Blood 214 mg/dL (75-99)
[2020-09-14] MEDS: NICOTINE 21MG/24HR PATCH TRANSDERM SCH (11:55)
[2020-09-14 14:53] LABS: Protein, Total 5.9 g/dL (6.2-8.2)
[2020-09-14] MEDS ORDERED: RX INFO: IV CONTRAST WAS GIVEN 1 EACH MISC MISCELLANE PRN (15:07)
[2020-09-14] MEDS: clonazePAM 0.5 MG TAB PO SCH (15:08)
[2020-09-14] MEDS: SODIUM CHLORIDE 0.9% 1,000 ML IV SCH (15:08)
--- NOTE | 2020-09-14 16:34 | CT ---
EXAMINATION TYPE: CT chest w con DATE OF EXAM: 09/14/2020 COMPARISON: 08/05/2015 HISTORY: History of breast cancer. Assess for mets. CT DLP: 219.2 mGycm Automated exposure control for dose reduction was used. CONTRAST: Performed with IV Contrast, patient injected with 80 mL of Isovue 300. Images obtained from the thoracic inlet to the diaphragm with IV contrast. There is no pleural effusion. The lungs are clear of consolidation. There are no hilar masses. There is no mediastinal adenopathy. Thoracic aorta is atheromatous. Ascending aorta measures 3.2 cm. There is no aneurysm or dissection. The upper abdominal soft tissues are intact. The thoracic vertebra appear intact. There is no compression fracture. Sternum is intact. There is no evidence of rib fracture. There is surgical clip at the right axilla. IMPRESSION: No significant abnormality. No evidence of thoracic metastatic disease. There is clearing of the infi ltrates and pleural fluid compared to old exam.
[2020-09-14 17:14] LABS: Glucose,Whole Blood 108 mg/dL (75-99)
[2020-09-14 20:18] LABS: Glucose,Whole Blood 124 mg/dL (75-99)
[2020-09-14] MEDS: ATORVASTATIN 80 MG TAB PO SCH (20:25)
[2020-09-14] MEDS: INSULIN DETEMIR (LEVEMIR) 100 UNIT/ML SYR SQ SCH (20:26)
[2020-09-15 00:41] LABS: Hemoglobin A1C 6.3 % (4.0-6.0)
[2020-09-15] MEDS: SODIUM CHLORIDE 0.9% 1,000 ML IV SCH ×3 (01:50→16:06)
[2020-09-15] MEDS: ONDANSETRON 4 MG TAB PO PRN (03:59)
[2020-09-15 04:03] LABS: Glucose,Whole Blood 135 mg/dL (75-99)
[2020-09-15] MEDS: HYDROmorphone 0.5 MG/0.5 ML SYRINGE IVP PRN ×5 (04:10→19:15)
[2020-09-15] MEDS: KETOROLAC 15 MG/ML 1 ML VIAL IVP SCH ×2 (05:32→13:58)
[2020-09-15] MEDS: DEXAMETHASONE SOD PHOSPHATE 4 MG/ML 1 ML VIAL IV SCH ×3 (05:33→17:28)
[2020-09-15 07:34] LABS: Glucose,Whole Blood 138 mg/dL (75-99)
[2020-09-15] MEDS: ASPIRIN 81 MG PO SCH (07:51)
[2020-09-15] MEDS: clonazePAM 0.5 MG TAB PO SCH (07:51)
[2020-09-15] MEDS: ENOXAPARIN 40 MG/0.4 ML SYRINGE SQ SCH (07:52)
[2020-09-15] MEDS: ISOSORBIDE MONONITRATE ER 30 MG TAB.ER.24H PO SCH (07:52)
[2020-09-15] MEDS: PANTOPRAZOLE 40 MG TABLET PO SCH (07:52)
[2020-09-15] MEDS: NICOTINE 21MG/24HR PATCH TRANSDERM SCH (07:52)
[2020-09-15] MEDS: INSULIN ASPART (NovoLOG) 100 UNIT/ML VIAL SQ SCH ×3 (07:52→17:34)
[2020-09-15 09:45] LABS: African American GFR (CKD) 65.2 (60.0-200.0); Anion Gap 6.4 mmol/L (4.00-12.00); Calcium 8.6 mg/dL (8.7-10.3); Carbon Dioxide 22.6 mmol/L (21.6-31.8); Non-African American GFR(CKD) 56.2 (60.0-200.0); Potassium 4.9 mmol/L (3.5-5.5)
[2020-09-15] MEDS: ONDANSETRON 4 MG/2 ML VIAL IVP PRN ×2 (11:10→19:15)
[2020-09-15] MEDS: OXcarbazepine 300 MG TAB PO SCH ×2 (11:11→23:29)
[2020-09-15] MEDS: carvediloL 3.125 MG TAB PO SCH ×2 (11:11→17:28)
[2020-09-15] MEDS: PARoxetine 20 MG TAB PO SCH (11:11)
--- NOTE | 2020-09-15 12:31 | P.PN ---
Subjective Progress Note Date: 09/15/20 70-year-old female came in with the severe back pain with diabetic retinopathy symptoms. CT of the abdomen was done which showed some fecal stasis along with the L1-L2 level [id number] displacement of narrowing with facet arthropathy. Patient is complaining of severe 10/10 pain. Patient pain is bit better compared to yesterday. Patient was started on Decadron pain medications subsequently admitted with neurology consult. Patient denied any loss of bowel or bladder continence. Patient does have history of breast cancer had lumpectomy in the past patient was supposed to follow-up with oncology never followed. As patient doesn't want chemotherapy. Patient is bit hyponatremic attributed to be dehydrated denied any nausea vomiting diarrhea. 09/14/2020 Patient is seen and evaluated and follow-up and currently awaiting to undergo MRI of the spine along with bone scan. Multiple medical consultations including orthopedics, oncology, neurology evaluating the patient. No surgical inter vention planned at this time. Awaiting pain management consult patient continues to have pain and discomfort in her back. Waiting PT/OT evaluation as she refused yesterday due to increased nausea. No reports of vomiting noted and continues to have occasional nausea. 09/15/2020 Patient is seen this morning and continues to have nausea intermittent with lower back pain. Patient underwent MRI of the lumbar spine showing mild to moderate multilevel degenerative changes and bone scan showed no suspicious findings or increased uptake to suggest metastatic disease to the bone or other suspicious abnormality. A she also underwent chest CT which was negative for any evidence of thoracic metastatic disease. Cardiology is following along with orthopedics. Pain management is consulted and pending at this time. Per patient there was possible discussion of epidural injections and will discuss with orthopedics and await pain management consult. PT/OT to evaluate the patient as well although personally walked the patient to the bathroom and back with only standby assist secondary to the IV pole handling. Patient was concerned with pulling out and IV. Gait was steady with no dizziness, lightheadedness noted. Patient states her plan is to return home and has family support. Continues to refuse any form of chemotherapy if necessary. Oncology is aware. Review of systems: Constitutional: No reports of fatigue, fever, or chills Cardiovascular: No reports of chest pain or palpitations Respiratory: No reports of shortness of breath or cough GI: Reports intermittent nausea, no reports of vomiting, or diarrhea : No reports of dysuria or retention Neurovascular: No reports of weakness or numbness, reports continued back pain All medications have been reviewed Objective - Vital Signs Vital signs: Vital Signs Temp 98.0 F 09/15/20 04:43 Pulse 73 09/15/20 04:43 Resp 16 09/15/20 04:43 BP 163/75 09/15/20 04:43 Pulse Ox 91 L 09/15/20 04:43 Intake & Output 09/14/20 09/15/20 09/15/20 18:59 06:59 18:59 Intake Total 240 940 Output Total 600 Balance 240 340 Intake: Intake, IV Titration 600 Amount Sodium Chloride 0.9% 1, 600 000 ml @ 100 mls/hr IV . Q10H ADAN Rx#:[id number] Oral 240 340 Output: Urine 600 Other: Voiding Method Bedside Commode Bedside Commode Toilet # Voids 2 3 - Exam GENERAL: The patient is alert and oriented x3, not in any acute distress. Well developed, well nourished. Less tearful with conversation HEENT: Pupils are round and equally reacting to light. EOMI. No scleral icterus. No conjunctival pallor. Normocephalic, atraumatic. No pharyngeal erythema. No thyromegaly. CARDIOVASCULAR: S1 and S2 present. No murmurs, rubs, or gallops. PULMONARY: Chest is clear to auscultation, no wheezing or crackles. ABDOMEN: Soft, nontender, nondistended, normoactive bowel sounds. No palpable organomegaly. MUSCULOSKELETAL: There is mild tenderness to paraspinal area bilaterally in the lower lumbar spine. EXTREMITIES: No cyanosis, clubbing, or pedal edema. NEUROLOGICAL: Gross neurological examination did not reveal any focal deficits. SKIN: No rashes. - Labs CBC & Chem 7: 09/12/20 12:46 09/15/20 06:14 Labs: Abnormal Lab Results - Last 24 Hours (Table) 09/12/20 09/14/20 09/14/20 Range/Units 12:46 06:23 11:51 Sodium (135-145) mmol/L BUN (9.0-27.0) mg/dL Est GFR (CKD-EPI)NonAf (60.0-200.0) BUN/Creatinine Ratio (12.00-20.00) Ratio Glucose (70-110) mg/dL POC Glucose (mg/dL) 214 H (75-99) mg/dL Hemoglobin A1c 6.3 H (4.0-6.0) % Calcium (8.7-10.3) mg/dL Total Protein (PEP) 5.9 L (6.2-8.2) g/dL 09/14/20 09/14/20 09/15/20 Range/Units 17:13 20:16 03:59 Sodium (135-145) mmol/L BUN (9.0-27.0) mg/dL Est GFR (CKD-EPI)NonAf (60.0-200.0) BUN/Creatinine Ratio (12.00-20.00) Ratio Glucose (70-110) mg/dL POC Glucose (mg/dL) 108 H 124 H 135 H (75-99) mg/dL Hemoglobin A1c (4.0-6.0) % Calcium (8.7-10.3) mg/dL Total Protein (PEP) (6.2-8.2) g/dL 09/15/20 09/15/20 Range/Units 06:14 07:32 Sodium 133 L (135-145) mmol/L BUN 29.0 H (9.0-27.0) mg/dL Est GFR (CKD-EPI)NonAf 56.2 L (60.0-200.0) BUN/Creatinine Ratio 29.00 H (12.00-20.00) Ratio Glucose 121 H (70-110) mg/dL POC Glucose (mg/dL) 138 H (75-99) mg/dL Hemoglobin A1c (4.0-6.0) % Calcium 8.6 L (8.7-10.3) mg/dL Total Protein (PEP) (6.2-8.2) g/dL Assessment and Plan Assessment: -Severe back pain with radiculopathy: Continue with Decadron anti-inflammatory medications and opiate pain medications. Orthopedic surgery evaluating the patient and recommending pain management and consult is pending. Neurology evaluated the patient and MRI was negative for anything emergent and will sign off. Patient to follow-up outpatient with neurology as needed -History of breast cancer doesn't appear to have any metastatic disease patient breast cancer is presently active. Oncology following and ordered further workup which is pending at this time. Patient was lost to follow-up and has not received treatment on breast cancer. Patient in the past apparently declined chemotherapy -Acute renal failure prerenal azotemia continue with IV fluids, creatinine is 1.1 -Hypertension -Diabetes mellitus, continue with long-acting along with sliding scale continue to monitor before meals and at bedtime -Hyperlipidemia -Gastroesophageal reflux disease -DVT prophylaxis with Lovenox -GI prophylaxis: Protonix Plan: Continue with current medications. Orthopedic surgery along with neurology following and oncology. Pain management consult placed in pending at this time. She continues to have pain and spasms of her lower back. MRI along with CT of the chest and bone scan were negative for metastatic disease. Patient states there was a discussion of possible epidural injections of the lower back as she is willing to proceed with this. Patient is maintained on IV steroids and will continue. Pain management to see the patient in the morning. Continue to monitor blood sugars and treat accordingly with sliding scale and long-acting. Encourage oral intake.
[2020-09-15 12:42] LABS: Glucose,Whole Blood 198 mg/dL (75-99)
[2020-09-15] MEDS: METOCLOPRAMIDE 5 MG/ML 2 ML VIAL IVP PRN (16:06)
[2020-09-15] MEDS: polyethylene glycoL 3350 17 GM POWD.PACK PO PRN (16:06)
[2020-09-15 17:34] LABS: Glucose,Whole Blood 127 mg/dL (75-99)
[2020-09-15 20:25] LABS: Glucose,Whole Blood 176 mg/dL (75-99)
[2020-09-15] MEDS: clonazePAM 1 MG TAB PO SCH (21:10)
[2020-09-15] MEDS ORDERED: FUROSEMIDE 10 MG/ML 4 ML VIAL IVP STA (21:18)
--- NOTE | 2020-09-15 22:12 | XR ---
EXAMINATION TYPE: XR chest 1V portable DATE OF EXAM: 09/15/2020 COMPARISON: 11/29/2019 HISTORY: Chest pain TECHNIQUE: Single view FINDINGS: There is diffuse pulmonary interstitial edema. There is slight blunting right costophrenic angle. IMPRESSION: Heart appears enlarged. Thoracic aorta shows mild atheromatous change. Bony thorax appear s intact. There is moderate pulmonary edema with right pleural effusion. This probably relates to con gestive heart failure. Abnormalities appear new compared to old exam.
[2020-09-15] MEDS: INSULIN DETEMIR (LEVEMIR) 100 UNIT/ML SYR SQ SCH (22:39)
[2020-09-15] MEDS: ATORVASTATIN 80 MG TAB PO SCH (23:29)
[2020-09-16] MEDS: METOCLOPRAMIDE 5 MG/ML 2 ML VIAL IVP PRN ×3 (00:40→17:50)
[2020-09-16] MEDS: DEXAMETHASONE SOD PHOSPHATE 4 MG/ML 1 ML VIAL IV SCH ×3 (00:41→11:49)
[2020-09-16] MEDS: traZODone HCL 50 MG TAB PO PRN (01:59)
[2020-09-16] MEDS: HYDROmorphone 0.5 MG/0.5 ML SYRINGE IVP PRN ×4 (02:49→17:51)
[2020-09-16 07:05] LABS: Glucose,Whole Blood 177 mg/dL (75-99)
[2020-09-16] MEDS: ENOXAPARIN 40 MG/0.4 ML SYRINGE SQ SCH ×2 (07:26→12:23)
[2020-09-16] MEDS: ISOSORBIDE MONONITRATE ER 30 MG TAB.ER.24H PO SCH (07:27)
[2020-09-16] MEDS: clonazePAM 1 MG TAB PO SCH ×2 (07:27→20:56)
[2020-09-16] MEDS: NICOTINE 21MG/24HR PATCH TRANSDERM SCH (07:27)
[2020-09-16] MEDS: PANTOPRAZOLE 40 MG TABLET PO SCH (07:27)
[2020-09-16] MEDS: ASPIRIN 81 MG PO SCH (07:27)
[2020-09-16] MEDS: PARoxetine 20 MG TAB PO SCH (07:28)
[2020-09-16] MEDS: carvediloL 3.125 MG TAB PO SCH ×2 (07:28→17:50)
[2020-09-16] MEDS: OXcarbazepine 300 MG TAB PO SCH ×2 (07:28→20:57)
--- NOTE | 2020-09-16 07:54 | P.PN ---
Subjective Progress Note Date: 09/16/20 Objective - Vital Signs Vital signs: Vital Signs Temp 98.0 F 09/15/20 04:43 Pulse 73 09/15/20 04:43 Resp 16 09/15/20 04:43 BP 163/75 09/15/20 04:43 Pulse Ox 91 L 09/15/20 04:43 Intake & Output 09/14/20 09/15/20 09/15/20 18:59 06:59 18:59 Intake Total 240 940 Output Total 600 Balance 240 340 Intake: Intake, IV Titration 600 Amount Sodium Chloride 0.9% 1, 600 000 ml @ 100 mls/hr IV . Q10H ADAN Rx#:[id number] Oral 240 340 Output: Urine 600 Other: Voiding Method Bedside Commode Bedside Commode Toilet # Voids 2 3 - Exam - Constitutional General appearance: cooperative, no acute distress - EENT Eyes: EOMI, PERRLA ENT: NA/AT, normal oropharynx - Neck Neck: normal ROM - Cardiovascular Rhythm: regular Heart sounds: normal: S1, S2 - Gastrointestinal General gastrointestinal: soft, tenderness - Integumentary Integumentary: pale - Neurologic Neurologic: CNII-XII intact - Musculoskeletal lower ext Musculoskeletal: generalized weakness - Psychiatric Psychiatric: A&O x's 3 - Labs CBC & Chem 7: 09/12/20 12:46 09/15/20 06:14 Labs: Abnormal Lab Results - Last 24 Hours (Table) 09/12/20 09/14/20 09/14/20 Range/Units 12:46 06:23 17:13 Sodium (135-145) mmol/L BUN (9.0-27.0) mg/dL Est GFR (CKD-EPI)NonAf (60.0-200.0) BUN/Creatinine Ratio (12.00-20.00) Ratio Glucose (70-110) mg/dL POC Glucose (mg/dL) 108 H (75-99) mg/dL Hemoglobin A1c 6.3 H (4.0-6.0) % Calcium (8.7-10.3) mg/dL Total Protein (PEP) 5.9 L (6.2-8.2) g/dL 09/14/20 09/15/20 09/15/20 Range/Units 20:16 03:59 06:14 Sodium 133 L (135-145) mmol/L BUN 29.0 H (9.0-27.0) mg/dL Est GFR (CKD-EPI)NonAf 56.2 L (60.0-200.0) BUN/Creatinine Ratio 29.00 H (12.00-20.00) Ratio Glucose 121 H (70-110) mg/dL POC Glucose (mg/dL) 124 H 135 H (75-99) mg/dL Hemoglobin A1c (4.0-6.0) % Calcium 8.6 L (8.7-10.3) mg/dL Total Protein (PEP) (6.2-8.2) g/dL 09/15/20 09/15/20 Range/Units 07:32 12:25 Sodium (135-145) mmol/L BUN (9.0-27.0) mg/dL Est GFR (CKD-EPI)NonAf (60.0-200.0) BUN/Creatinine Ratio (12.00-20.00) Ratio Glucose (70-110) mg/dL POC Glucose (mg/dL) 138 H 198 H (75-99) mg/dL Hemoglobin A1c (4.0-6.0) % Calcium (8.7-10.3) mg/dL Total Protein (PEP) (6.2-8.2) g/dL Assessment and Plan (1) History of breast cancer Current Visit: Yes Status: Acute Code(s): Z85.3 - PERSONAL HISTORY OF MALIGNANT NEOPLASM OF BREAST SNOMED Code(s): 462193946 (2) Intractable back pain Current Visit: Yes Status: Acute Code(s): M54.9 - DORSALGIA, UNSPECIFIED SNOMED Code(s): 727252633 Plan: Assessment and Recommendations: New Onset back pain and lower extremity weakness: - Ortho is following - MRI is Ordered Recent History of Breast Cancer: - Diagnosed ER+ HER2 neg locally advanced breast cancer with three positive lymph nodes. - She underwent lumpectomy in February, original bx was December 2019 - She opted for no chemo however she never represented to discuss adjuvant hormonal therapy and refused to follow back up despite multiple attempts to reschedule. - There is no new signs of recurrence thus far, she has agreed to follow up for AI endocrine therapy after intervention for acute back pain
[2020-09-16] MEDS: polyethylene glycoL 3350 17 GM POWD.PACK PO PRN (08:35)
[2020-09-16] MEDS: INSULIN ASPART (NovoLOG) 100 UNIT/ML VIAL SQ SCH ×3 (08:35→17:50)
[2020-09-16] MEDS: SODIUM CHLORIDE 0.9% 1,000 ML IV SCH (08:39)
[2020-09-16 09:42] LABS: Basophils % (A) 0 %; Eosinophils # (A) 0.3 k/uL (0-0.7); Eosinophils % (A) 2 %; HCT 36.4 % (34.0-46.0); HGB 12.7 gm/dL (11.4-16.0); Lymphocytes # (A) 0.8 k/uL (1.0-4.8); Lymphocytes % (A) 5 %; MCH 33.2 pg (25.0-35.0); MCHC 34.9 g/dL (31.0-37.0); MCV 95.2 fL (80.0-100.0); Mean Platelet Volume 7.1; Monocytes # (A) 0.4 k/uL (0-1.0); Monocytes % (A) 3 %; Neutrophils % (A) 89 %; Platelet Count 228 k/uL (150-450); RBC 3.82 m/uL (3.80-5.40); RDW 12.6 % (11.5-15.5); WBC 14.5 k/uL (3.8-10.6)
[2020-09-16 09:51] LABS: African American GFR (CKD) 73 (>60 ml/min/1.73 sqM); Anion Gap 11 mmol/L; Blood Urea Nitrogen 21 mg/dL (7-17); Calcium 8.8 mg/dL (8.4-10.2); Carbon Dioxide 23 mmol/L (22-30); Chloride 98 mmol/L (98-107); Glucose 230 mg/dL (74-99); Non-African American GFR(CKD) 63 (>60 ml/min/1.73 sqM); Potassium 4.6 mmol/L (3.5-5.1); Sodium 132 mmol/L (137-145)
[2020-09-16] MEDS ORDERED: clonazePAM 1 MG TAB PO PRN (10:58)
[2020-09-16 11:18] LABS: Glucose,Whole Blood 192 mg/dL (75-99)
[2020-09-16] MEDS: HYDROcodone/APAP 5-325MG 1 EACH TAB PO PRN ×2 (11:49→20:56)
[2020-09-16] MEDS: ONDANSETRON 4 MG/2 ML VIAL IVP PRN ×2 (11:53→20:57)
--- NOTE | 2020-09-16 12:07 | P.PAINCN ---
History of Present Illness - Reason for Consult Consult date: 09/16/20 - History of Present Illness This is a 70-year-old patient is an inpatient consult. Patient is on a chief complaint of low back pain with radiation into bilateral groin and anterior thighs. Pain is described as sharp and stabbing and aching. Pain started several weeks ago with no inciting incident. She notes that she was in the posterior recent had a fall where she had to have her right ankle repaired after fracture and she feels like everything is gotten worse since then. Also was recently diagnosed with breast cancer but is refusing chemotherapy. Also has a significant cardiac history with stents in her heart. Patient was evaluated by Dr. Hooker who did not deem her surgical candidate and referred her to us for possible interventional pain management. She has never had injections before. Pain is currently a 10 out of 10. Patient denies adverse drug effects from medications. Patient also denies new- onset weakness, bowel/bladder incontinence, or any other signs or symptoms of cauda equina syndrome. There are no signs of acute intoxication, and no indications of medication diversion or overuse. In addition to above, 13-point review of systems is also negative for chest pain, shortness of breath, changes in vision, changes in hearing, new onset weakness, abdominal pain, diarrhea, extreme fatigue, malaise, fever, skin changes, homicidal or suicidal ideation, or bowel or bladder incontinence. Physical exam: Vital Signs: Reviewed in EMR GENERAL: Well appearing, in mild PSYCH: Mood and affect is appropriate. Awake, alert, and oriented SKIN: Skin color, texture, turgor normal, no rashes or lesions HEENT: Normocephalic, atraumatic. EOM intact CV: No pedal edema RESP: Respirations are unlabored, no audible wheezing GI: Abdomen non-distended MUSCULOSKELETAL: Bilateral upper and lower extremity strength is normal and symmetric. No atrophy or tone abnormalities are noted. Lumbar spine: Straight leg raising in the sitting position is negative for radicular pain. pain to palpation over the lumbar spine and paraspinous muscles.positive for pain with facet loading and back extension/rotation. Normal range of motion without pain reproduction Extremities: Peripheral joint ROM is full and pain free without obvious instability or laxity in all four extremities. No edema or skin discolorations noted. Gait: Gait is normal NEUR: Bilateral upper and lower extremity coordination and muscle stretch reflexes are physiologic and symmetric. Negative clonus. No loss of sensation is noted. Cranial nerves are grossly intact. Imaging: Lumbar MRI L1-L2: Mild to moderate broad disc bulge with right foraminal disc protrusion. There is effacement of the anterior thecal sac with asymmetric mild to moderate right-sided anterior inferior neural foraminal narrowing L2-L3: Mild to moderate broad disc bulge with mild facet arthropathy with some effacement of the anterior thecal sac L3-L4: Mild to moderate facet degenerative changes and ligamentum flavum hypertrophy effacing the posterior lateral thecal sac. Mild to moderate broad disc bulge effacing the anterior thecal sac. L4-L5 shows moderate facet degenerative changes and ligamentum flavum hypertrophy with mild to moderate broad disc bulge and central disc protrusion component effacing anterior thecal sac. L5-S1 moderate facet degenerative changes with a central disc protrusion with spinal canal is preserved Assessment: 1. Lumbar spondylosis 2. Lumbar facet hypertrophy Plan: - She has multiple levels of degenerative disease with symptoms that are not particularly dermatomal in nature. Has not had injections before. Given MRI and symptoms we can attempt an L4-5 MARIELA for her. I instructed the nursing staff to hold her Lovenox for 24 hours and confirm with her primary team if they are comfortable holding her anticoagulation. Instructed her that this injection may not help with all of her pain but could help with some. - Unless the IV decadron is being used for an endocrine pathology, I would recommend stopping IV steroids - Start robaxin 750 mg QID and tylenol 1000 mg Q8H scheduled - Do not recommend NSAIDs given cardiac history I have spent 45 minutes with chart reviewing the patient, speaking to the patient, and discussing plan of care with the patient Past Medical History Past Medical History: Coronary Artery Disease (CAD), Diabetes Mellitus, GERD/R eflux, Hyperlipidemia, Myocardial Infarction ([place]) Additional Past Medical History / Comment(s): Dx rt breast CA December 2019-painful no or chemo, fx ankle November 2019-has boot (states boot cannot be removed)on rt ankle-uses walker and WBAT, hx7-16-15 pancreatitis. other MIGRAINES, chronic back pain, gout Last Myocardial Infarction Date:: unk History of Any Multi-Drug Resistant Organisms: None Reported Past Surgical History: Breast Surgery, Heart Catheterization With Stent, Orthopedic Surgery Additional Past Surgical History / Comment(s): ORIF rt ankle 5-2020, EGD/COLONOSCOPY, bone marrow bx-neg, TOTAL OF 3 CARDIAC STENTS, breast bx; right breast lumpectomy w/AND 01/30/20; Past Anesthesia/Blood Transfusion Reactions: No Reported Reaction Additional Past Anesthesia/Blood Transfusion Reaction / Comm: clausterphobia Date of Last Stent Placement:: UNK Past Psychological History: Anxiety, Bipolar, Depression Additional Psychological History / Comment(s): mood disorder Smoking Status: Current every day smoker Past Alcohol Use History: None Reported Additional Past Alcohol Use History / Comment(s): Started smoking in her teens; 2ppd Past Drug Use History: None Reported Additional Drug Use History / Comment(s): Pt. states recreational marijuana use "once every couple months" - Past Family History Son(s) Family Medical History: Cancer Father Family Medical History: Diabetes Mellitus, Myocardial Infarction ([place]) Mother Family Medical History: Cancer, Myocardial Infarction ([place]) Medications and Allergies Home Medications Medication Instructions Recorded Confirmed Type PARoxetine HCL [Paxil] 40 mg PO DAILY 06/24/16 09/12/20 History Isosorbide Mononitrate ER [Imdur] 30 mg PO QAM 09/02/17 09/12/20 History carvediloL [Coreg] 3.125 mg PO AC-BID 09/02/17 09/12/20 History traZODone HCL [TraZODone HCl] 100 mg PO HS PRN 08/22/18 09/12/20 History Atorvastatin [Lipitor] 80 mg PO HS 11/29/19 09/12/20 History Insulin Glargine,Hum.rec.anlog 5 unit SQ HS 11/29/19 09/12/20 History [Lantus Solostar] lisinopriL [Zestril] 10 mg PO QAM 11/29/19 09/12/20 History ondansetron HCL [Zofran] 8 mg PO Q12H PRN #30 tab 12/02/19 09/12/20 Rx Omeprazole 20 mg PO QAM 01/29/20 09/12/20 History OXcarbazepine [Trileptal] 300 mg PO BID 02/19/20 09/12/20 History Aspirin EC [Ecotrin Low Dose] 81 mg PO DAILY 09/12/20 09/12/20 History Ergocalciferol [Vitamin D2 (1250 1,250 mcg PO Q7D 09/12/20 09/12/20 History Mcg = 32064 Iu)] HYDROcodone/APAP 5-325MG [Lincoln 1 tab PO Q8H PRN 09/12/20 09/12/20 History 5-325] clonazePAM [KlonoPIN] 0.5 - 1 mg PO DAILY 09/12/20 09/12/20 History Allergies Allergy/AdvReac Type Severity Reaction Status Date / Time codeine AdvReac Nausea & Verified 09/12/20 12:52 Vomiting Latex, Natural Rubber AdvReac Rash/Hives/ Verified 09/12/20 12:52 itching Physical Exam Vitals: Vital Signs Temp Pulse Resp BP Pulse Ox 09/16/20 11:48 97.6 F 78 17 98/62 95 09/16/20 05:00 99.1 F 120 H 20 148/85 96 09/15/20 22:41 90 20 156/79 95 09/15/20 20:58 87 16 164/97 97 09/15/20 20:57 18 80 L 09/15/20 20:37 93 L 09/15/20 20:25 98.4 F 98 20 171/91 83 L 09/15/20 20:00 90 20 171/102 09/15/20 12:25 98.3 F 72 18 161/69 94 L Intake and Output 09/15/20 09/16/20 09/16/20 22:59 06:59 14:59 Intake Total 1200 Balance 1200 Intake: Intake, IV Titration 1200 Amount Sodium Chloride 0.9% 1, 1200 000 ml @ 100 mls/hr IV . Q10H [facility] Rx#:[id number] Other: Voiding Method Toilet Toilet # Voids 3 Results CBC & Chem 7: 09/16/20 09:14 09/16/20 09:14 Labs: Abnormal Lab Results - Last 24 Hours (Table) 09/15/20 09/15/20 09/15/20 Range/Units 12:25 17:33 20:23 WBC (3.8-10.6) k/uL Neutrophils # (1.3-7.7) k/uL Lymphocytes # (1.0-4.8) k/uL Sodium (137-145) mmol/L BUN (7-17) mg/dL Glucose (74-99) mg/dL POC Glucose (mg/dL) 198 H 127 H 176 H (75-99) mg/dL 09/16/20 09/16/20 09/16/20 Range/Units 07:04 09:14 09:14 WBC 14.5 H (3.8-10.6) k/uL Neutrophils # 13.0 H (1.3-7.7) k/uL Lymphocytes # 0.8 L (1.0-4.8) k/uL Sodium 132 L (137-145) mmol/L BUN 21 H (7-17) mg/dL Glucose 230 H (74-99) mg/dL POC Glucose (mg/dL) 177 H (75-99) mg/dL 09/16/20 Range/Units 11:17 WBC (3.8-10.6) k/uL Neutrophils # (1.3-7.7) k/uL Lymphocytes # (1.0-4.8) k/uL Sodium (137-145) mmol/L BUN (7-17) mg/dL Glucose (74-99) mg/dL POC Glucose (mg/dL) 192 H (75-99) mg/dL PQRS Measure Charge Sheet PQRS Narrative: Smoking Status Current every day smoker Blood Pressure [Left Arm] 98/62 Blood Pressure 96/60 Pain Intensity [Lower Back] 10 Pain Intensity [Bilateral Knee 5 ] Pain Intensity 8 Pain Scale Used Numeric (1 - 10) Scale Used Numeric (1 - 10) Home Medications: Ambulatory Orders PARoxetine HCL [Paxil] 40 mg PO DAILY 06/24/16 Isosorbide Mononitrate ER [Imdur] 30 mg PO QAM 09/02/17 carvediloL [Coreg] 3.125 mg PO AC-BID 09/02/17 traZODone HCL [TraZODone HCl] 100 mg PO HS PRN 08/22/18 Atorvastatin [Lipitor] 80 mg PO HS 11/29/19 Insulin Glargine,Hum.rec.anlog [Lantus Solostar] 5 unit SQ HS 11/29/19 lisinopriL [Zestril] 10 mg PO QAM 11/29/19 ondansetron HCL [Zofran] 8 mg PO Q12H PRN #30 tab 12/02/19 Omeprazole 20 mg PO QAM 01/29/20 OXcarbazepine [Trileptal] 300 mg PO BID 02/19/20 Aspirin EC [Ecotrin Low Dose] 81 mg PO DAILY 09/12/20 Ergocalciferol [Vitamin D2 (1250 Mcg = 26170 Iu)] 1,250 mcg PO Q7D 09/12/20 HYDROcodone/APAP 5-325MG [Lincoln 5-325] 1 tab PO Q8H PRN 09/12/20 clonazePAM [KlonoPIN] 0.5 - 1 mg PO DAILY 09/12/20
[2020-09-16] MEDS: SENNOSIDES 8.6 MG TAB PO SCH (12:41)
[2020-09-16] MEDS: LACTULOSE 20 GM/30 ML CUP PO SCH (12:41)
--- NOTE | 2020-09-16 12:59 | P.PN ---
Progress Note - Text Progress Note Date: 09/16/20 Orthopedic spine: History of present illness: Patient is a pleasant 70-year-old female who is seen and examined at bedside for follow-up evaluation for her lumbar spine. Since being seen and examined at bedside she has had an MRI of the lumbar spine. This MRI has been reviewed. She is also been seen by pain management who is planning for epidural injection tomorrow. Overall she has not had much improvement of her symptoms over the weekend. She continues to have some low back pain with pain radiating into the anterior thighs and groin bilaterally. She does have a history of previous diagnosed breast cancer without significant treatment. Multiple imaging modalities taken the hospital including CT and bone scan did not show evidence of metastatic disease. She continues to be seen examined by multiple medical providers including medicine and oncology patient does state at bedside she would like to try to avoid surgical intervention. She denies any lower extremity weakness bilaterally. Physical exam: Patient is awake, alert, and oriented 3 Vital signs stable Good chest excursion with deep inspiration and expiration Examination of lumbar spine reveals skin is intact with no abrasions, lacerations, or bruises; no erythema, purulence or signs of infection Some generalized pain with palpation over the lumbosacral junction Dorsiflexion, plantarflexion, and extensor hallucis longus positive sustained bilaterally Lower extremity strength 5/5 bilaterally Straight leg test negative bilateral lower extremities Negative Lasegue's test bilaterally No signs or symptoms of DVT; no calf pain No pain with internal and external rotation of the hips bilaterally Neurovascularly intact Pertinent studies: MRI of the lumbar spine taken on 09/14/2020: L1-2 degenerative disc disease with Modic endplate change; L2-3 broad-based disc bulge and facet arthropathy; L3-4 degenerative disc disease, disc protrusion, and facet arthropathy resulting in mild central canal stenosis and moderate left and mild right neuroforaminal narrowing; L4-5 degenerative disc disease, facet degeneration, ligamentum flavum hypertrophy, and disc bulging resulting in mild spinal canal stenosis and mild right moderate left neural foraminal narrowing; L5-S1 moderate facet degenerative changes and disc bulging; no suspicious is contrast enhancement Nuclear medicine whole body bone scan taken on 09/14/2020: No suspicious scintigraphic increased uptake of radiotracer to suggest metastatic disease to the bone or other suspicious abnormality Assessment: Low back pain Bilateral lower extremity radiculopathy Lumbar degenerative disc disease Lumbar facet arthropathy L3-4 and L4-5 mild spinal canal stenosis History of breast cancer Plan: 1. Patient will continue conservative treatment at this time in regards to her lumbosacral spine. She does have evidence of degenerative changes in her lumbar spine most significant at L3-4 and L4-5. She is experiencing pain that radiates from the lumbar spine, over the lateral hips and into the groin bilaterally and over the anterior thighs bilaterally. She has been seen by pain management is currently scheduled to undergo an injection tomorrow, 09/17/2020. We discussed patient would be cleared for discharge from an orthopedic spine standpoint and we'll plan to have her see follow-up in the outpatient setting approximate 3-4 weeks for further evaluation. Patient does states she would like to work through all conservative treatment is not currently seeking surgical interventio n at her lumbar spine. She may ambulate and perform regular activities of daily living to her tolerance. At this time, patient is cleared for discharge from an orthopedic spine standpoint. Patient may follow-up with Richie Suárez PA-C or Dr. Mohsen Hooker at [facility] in 2-3 weeks following discharge. 2. Patient will continue to be seen examined by multiple other medical providers including medicine, oncology, and pain management
--- NOTE | 2020-09-16 14:49 | P.PN ---
Subjective Progress Note Date: 09/16/20 70-year-old female came in with the severe back pain with diabetic retinopathy symptoms. CT of the abdomen was done which showed some fecal stasis along with the L1-L2 level [id number] displacement of narrowing with facet arthropathy. Patient is complaining of severe 10/10 pain. Patient pain is bit better compared to yesterday. Patient was started on Decadron pain medications subsequently admitted with neurology consult. Patient denied any loss of bowel or bladder continence. Patient does have history of breast cancer had lumpectomy in the past patient was supposed to follow-up with oncology never followed. As patient doesn't want chemotherapy. Patient is bit hyponatremic attributed to be dehydrated denied any nausea vomiting diarrhea. 09/14/2020 Patient is seen and evaluated and follow-up and currently awaiting to undergo MRI of the spine along with bone scan. Multiple medical consultations including orthopedics, oncology, neurology evaluating the patient. No surgical inter vention planned at this time. Awaiting pain management consult patient continues to have pain and discomfort in her back. Waiting PT/OT evaluation as she refused yesterday due to increased nausea. No reports of vomiting noted and continues to have occasional nausea. 09/15/2020 Patient is seen this morning and continues to have nausea intermittent with lower back pain. Patient underwent MRI of the lumbar spine showing mild to moderate multilevel degenerative changes and bone scan showed no suspicious findings or increased uptake to suggest metastatic disease to the bone or other suspicious abnormality. A she also underwent chest CT which was negative for any evidence of thoracic metastatic disease. Cardiology is following along with orthopedics. Pain management is consulted and pending at this time. Per patient there was possible discussion of epidural injections and will discuss with orthopedics and await pain management consult. PT/OT to evaluate the patient as well although personally walked the patient to the bathroom and back with only standby assist secondary to the IV pole handling. Patient was concerned with pulling out and IV. Gait was steady with no dizziness, lightheadedness noted. Patient states her plan is to return home and has family support. Continues to refuse any form of chemotherapy if necessary. Oncology is aware. 09/16/2020 Patient is seen and evaluated this morning continues to have extreme lower back pain stating her pain is 10 out of 10. Pain management consulted and evaluated the patient recommending epidural injection and will hold Lovenox at this time. Patient will be scheduled to have injections in the morning. Patient had an episode of extreme dyspnea and shortness of breath and was noted to have an oxygen saturation of less than 80% and was placed on a nonrebreather. Patient was given a one-time dose of IV Lasix 20 mg and also had chest x-ray showing diffuse pulmonary interstitial edema. Patient states her breathing has improved after the Lasix and is currently on room air at 95% oxygenation. White blood count slightly elevated at 14.5 although patient has been on IV steroids, hemoglobin stable at 12.7, sodium is 132, potassium is 4.6, current creatinine is 0.91. Blood sugars being monitored and treated accordingly with sliding scale and long-acting and will continue. IV fluids have been discontinued. Review of systems: Constitutional: No reports of fatigue, fever, or chills Cardiovascular: No reports of chest pain or palpitations Respiratory: No reports of shortness of breath or cough GI: Reports intermittent nausea, no reports of vomiting, or diarrhea : No reports of dysuria or retention Neurovascular: No reports of weakness or numbness, reports continued back pain with severity of 10/10 pain scale All medications have been reviewed Active Medications Hydrocodone Bitart/Acetaminophen (Hydrocodone/Apap 5-325mg 1 Each Tab) 1 each PO Q8H PRN PRN Reason: Pain Last Admin: 09/16/20 11:49 Dose: 1 each Documented by: Aspirin (Aspirin 81 Mg) 81 mg PO DAILY [facility] Last Admin: 09/16/20 07:27 Dose: 81 mg Documented by: Atorvastatin Calcium (Atorvastatin 80 Mg Tab) 80 mg PO HS [facility] Last Admin: 09/15/20 23:29 Dose: Not Given Documented by: Carvedilol (Carvedilol 3.125 Mg Tab) 3.125 mg PO AC-BID [facility] Last Admin: 09/16/20 07:28 Dose: 3.125 mg Documented by: Clonazepam (Clonazepam 1 Mg Tab) 1 mg PO BID [facility] Last Admin: 09/16/20 07:27 Dose: 1 mg Documented by: Clonazepam (Clonazepam 1 Mg Tab) 1 mg PO DAILY PRN PRN Reason: Anxiety Last Admin: 09/16/20 14:30 Dose: 1 mg Documented by: Hydromorphone HCl (Hydromorphone 0.5 Mg/0.5 Ml Syringe) 0.5 mg IVP Q2HR PRN PRN Reason: Pain Last Admin: 09/16/20 14:34 Dose: 0.5 mg Documented by: Insulin Aspart (Insulin Aspart (Novolog) 100 Unit/Ml Vial) 0 unit SQ AC-TID [facility]; Protocol Last Admin: 09/16/20 11:54 Dose: 2 unit Documented by: Insulin Detemir (Insulin Detemir (Levemir) 100 Unit/Ml Syr) 5 unit SQ HS [facility] Last Admin: 09/15/20 22:39 Dose: 5 unit Documented by: Isosorbide Mononitrate (Isosorbide Mononitrate Er 30 Mg Tab.Er.24h) 30 mg PO QAM [facility] Last Admin: 09/16/20 07:27 Dose: 30 mg Documented by: Lactulose (Lactulose 20 Gm/30 Ml Cup) 20 gm PO DAILY [facility] Last Admin: 09/16/20 12:41 Dose: 20 gm Documented by: Lorazepam (Lorazepam 2 Mg/Ml Inj) 1 mg IV ONCE PRN PRN Reason: Anxiety Last Admin: 09/14/20 09:04 Dose: 1 mg Documented by: Metoclopramide HCl (Metoclopramide 5 Mg/Ml 2 Ml Vial) 5 mg IVP Q6H PRN PRN Reason: Nausea And Vomiting Last Admin: 09/16/20 07:31 Dose: 5 mg Documented by: Miscellaneous Information (Rx Info: Iv Contrast Was Given 1 Each Misc) 1 each MISCELLANE DAILY PRN PRN Reason: Per Protocol Stop: 09/16/20 15:07 Nicotine (Nicotine 21mg/24hr Patch) 1 patch TRANSDERM DAILY [facility] Last Admin: 09/16/20 07:27 Dose: 1 patch Documented by: Ondansetron HCl (Ondansetron 4 Mg/2 Ml Vial) 4 mg IVP Q6HR PRN PRN Reason: Nausea And Vomiting Last Admin: 09/16/20 11:53 Dose: 4 mg Documented by: Oxcarbazepine (Oxcarbazepine 300 Mg Tab) 300 mg PO BID [facility] Last Admin: 09/16/20 07:28 Dose: 300 mg Documented by: Pantoprazole Sodium (Pantoprazole 40 Mg Tablet) 40 mg PO QAM [facility] Last Admin: 09/16/20 07:27 Dose: 40 mg Documented by: Paroxetine HCl (Paroxetine 20 Mg Tab) 40 mg PO DAILY [facility] Last Admin: 09/16/20 07:28 Dose: 40 mg Documented by: Polyethylene Glycol (Polyethylene Glycol 3350 17 Gm Powd.Pack) 17 gm PO DAILY P RN PRN Reason: Constipation Last Admin: 09/16/20 08:35 Dose: 17 gm Documented by: Senna (Sennosides 8.6 Mg Tab) 8.6 mg PO DAILY [facility] Last Admin: 09/16/20 12:41 Dose: 8.6 mg Documented by: Trazodone HCl (Trazodone Hcl 50 Mg Tab) 100 mg PO HS PRN PRN Reason: sleep Last Admin: 09/16/20 01:59 Dose: 100 mg Documented by: Objective - Vital Signs Vital signs: Vital Signs Temp 99.1 F 09/16/20 05:00 Pulse 120 H 09/16/20 05:00 Resp 20 09/16/20 05:00 BP 148/85 09/16/20 05:00 Pulse Ox 96 09/16/20 05:00 Intake & Output 09/15/20 09/16/20 09/16/20 18:59 06:59 18:59 Intake Total 1200 Balance 1200 Intake: Intake, IV Titration 1200 Amount Sodium Chloride 0.9% 1, 1200 000 ml @ 100 mls/hr IV . Q10H [facility] Rx#:[id number] Other: Voiding Method Toilet Toilet # Voids 3 - Exam GENERAL: The patient is alert and oriented x3, not in any acute distress. Anxious. Well developed, well nourished. Temp is 97.6F, pulse is 78, respirations are 17, blood pressure 98/62, oxygen saturation is 95% on room air. HEENT: Pupils are round and equally reacting to light. EOMI. No scleral icterus. No conjunctival pallor. Normocephalic, atraumatic. No pharyngeal erythema. No thyromegaly. CARDIOVASCULAR: S1, S2 are muffled PULMONARY: Diminished breath sounds bilaterally with no wheezing or rhonchi noted ABDOMEN: Soft, nontender, nondistended, normoactive bowel sounds. No palpable organomegaly. MUSCULOSKELETAL: There is mild tenderness to paraspinal area bilaterally in the lower lumbar spine noted on exam. EXTREMITIES: No cyanosis, clubbing, or pedal edema. NEUROLOGICAL: Gross neurological examination did not reveal any focal deficits. SKIN: No rashes. - Labs CBC & Chem 7: 09/16/20 09:14 09/16/20 09:14 Labs: Abnormal Lab Results - Last 24 Hours (Table) 09/15/20 09/15/20 09/15/20 Range/Units 06:14 12:25 17:33 Sodium 133 L (135-145) mmol/L BUN 29.0 H (9.0-27.0) mg/dL Est GFR (CKD-EPI)NonAf 56.2 L (60.0-200.0) BUN/Creatinine Ratio 29.00 H (12.00-20.00) Ratio Glucose 121 H (70-110) mg/dL POC Glucose (mg/dL) 198 H 127 H (75-99) mg/dL Calcium 8.6 L (8.7-10.3) mg/dL 09/15/20 09/16/20 Range/Units 20:23 07:04 Sodium (135-145) mmol/L BUN (9.0-27.0) mg/dL Est GFR (CKD-EPI)NonAf (60.0-200.0) BUN/Creatinine Ratio (12.00-20.00) Ratio Glucose (70-110) mg/dL POC Glucose (mg/dL) 176 H 177 H (75-99) mg/dL Calcium (8.7-10.3) mg/dL Assessment and Plan Assessment: -Severe back pain with radiculopathy -History of breast cancer declining treatment -Acute renal failure prerenal azotemia, improved -Hypertension -History of coronary artery disease -History of myocardial infarction -History of gout -Diabetes mellitus -Hyperlipidemia -Gastroesophageal reflux disease -History of anxiety, bipolar, depression, mood disorder -DVT prophylaxis with Lovenox -GI prophylaxis: Protonix Recommendations and discussion: Continue with current medications, management, and symptomatic treatment. Orthopedic surgery along with neurology following and oncology. Pain management evaluated the patient recommending epidural injections and will hold Lovenox and patient is scheduled to receive injections in the morning. She continues to have pain and spasms of her lower back. Will discontinue IV steroids. Patient continues to have some constipation and will order lactulose with Senokot. Patient is very anxious today and will increase Klonopin as needed. Continue to monitor blood sugars and treat accordingly with sliding scale and long-acting. Encourage oral intake. Due to multiple complex medical issues, prognosis is guarded. Further recommendations to follow.
[2020-09-16 17:35] LABS: Glucose,Whole Blood 199 mg/dL (75-99)
[2020-09-16 20:13] LABS: Glucose,Whole Blood 167 mg/dL (75-99)
--- NOTE | 2020-09-16 20:19 | P.PN ---
Subjective Progress Note Date: 09/16/20 Planning for injections with pain services today. Will also begin Aromatase inhibitor. Objective - Vital Signs Vital signs: Vital Signs Temp 97.6 F 09/16/20 11:48 Pulse 78 09/16/20 11:48 Resp 17 09/16/20 11:48 BP 98/62 09/16/20 11:48 Pulse Ox 95 09/16/20 11:48 Intake & Output 09/16/20 09/16/20 09/17/20 06:59 18:59 06:59 Other: Voiding Method Toilet Toilet # Voids 3 5 - Exam - Constitutional General appearance: cooperative, no acute distress - EENT Eyes: EOMI, PERRLA ENT: NA/AT, normal oropharynx - Neck Neck: normal ROM - Cardiovascular Rhythm: regular Heart sounds: normal: S1, S2 - Gastrointestinal General gastrointestinal: soft, tenderness - Integumentary Integumentary: pale - Neurologic Neurologic: CNII-XII intact - Musculoskeletal lower ext Musculoskeletal: generalized weakness - Psychiatric Psychiatric: A&O x's 3 - Labs CBC & Chem 7: 09/16/20 09:14 09/16/20 09:14 Labs: Abnormal Lab Results - Last 24 Hours (Table) 09/15/20 09/16/20 09/16/20 Range/Units 20:23 07:04 09:14 WBC 14.5 H (3.8-10.6) k/uL Neutrophils # 13.0 H (1.3-7.7) k/uL Lymphocytes # 0.8 L (1.0-4.8) k/uL Sodium (137-145) mmol/L BUN (7-17) mg/dL Glucose (74-99) mg/dL POC Glucose (mg/dL) 176 H 177 H (75-99) mg/dL 09/16/20 09/16/20 09/16/20 Range/Units 09:14 11:17 17:34 WBC (3.8-10.6) k/uL Neutrophils # (1.3-7.7) k/uL Lymphocytes # (1.0-4.8) k/uL Sodium 132 L (137-145) mmol/L BUN 21 H (7-17) mg/dL Glucose 230 H (74-99) mg/dL POC Glucose (mg/dL) 192 H 199 H (75-99) mg/dL 09/16/20 Range/Units 20:11 WBC (3.8-10.6) k/uL Neutrophils # (1.3-7.7) k/uL Lymphocytes # (1.0-4.8) k/uL Sodium (137-145) mmol/L BUN (7-17) mg/dL Glucose (74-99) mg/dL POC Glucose (mg/dL) 167 H (75-99) mg/dL Assessment and Plan (1) History of breast cancer Current Visit: Yes Status: Acute Code(s): Z85.3 - PERSONAL HISTORY OF MALIGNANT NEOPLASM OF BREAST SNOMED Code(s): 187725958 (2) Intractable back pain Current Visit: Yes Status: Acute Code(s): M54.9 - DORSALGIA, UNSPECIFIED SNOMED Code(s): 821680777 Plan: Assessment and Recommendations: New Onset back pain and lower extremity weakness: - Ortho is following Reviewed MRIs Recent History of Breast Cancer: - Diagnosed ER+ HER2 neg locally advanced breast cancer with three positive lymph nodes. - She underwent lumpectomy in February, original bx was December 2019 - She opted for no chemo however she never represented to discuss adjuvant hormonal therapy and refused to follow back up despite multiple attempts to reschedule. - There is no new signs of recurrence thus far, she has agreed to follow up for AI endocrine therapy after intervention for acute back pain
[2020-09-16] MEDS: INSULIN DETEMIR (LEVEMIR) 100 UNIT/ML SYR SQ SCH (20:49)
[2020-09-16] MEDS: ATORVASTATIN 80 MG TAB PO SCH (20:57)
[2020-09-16] MEDS ORDERED: DEXAMETHASONE SOD PHOSPHATE 4 MG/ML 1 ML VIAL IV SCH (21:00)
[2020-09-17] MEDS: HYDROmorphone 0.5 MG/0.5 ML SYRINGE IVP PRN (00:54)
[2020-09-17] MEDS: METOCLOPRAMIDE 5 MG/ML 2 ML VIAL IVP PRN ×2 (01:41→19:57)
[2020-09-17] MEDS: traZODone HCL 50 MG TAB PO PRN (01:45)
[2020-09-17] MEDS: HYDROcodone/APAP 5-325MG 1 EACH TAB PO PRN ×3 (06:09→19:57)
[2020-09-17] MEDS: ONDANSETRON 4 MG/2 ML VIAL IVP PRN (06:12)
[2020-09-17 07:14] LABS: Glucose,Whole Blood 118 mg/dL (75-99)
[2020-09-17] MEDS: INSULIN ASPART (NovoLOG) 100 UNIT/ML VIAL SQ SCH ×3 (07:20→17:39)
[2020-09-17] MEDS: LACTULOSE 20 GM/30 ML CUP PO SCH (07:43)
[2020-09-17] MEDS: PANTOPRAZOLE 40 MG TABLET PO SCH (07:44)
[2020-09-17] MEDS: NICOTINE 21MG/24HR PATCH TRANSDERM SCH (07:44)
[2020-09-17] MEDS: SENNOSIDES 8.6 MG TAB PO SCH (07:44)
[2020-09-17] MEDS: ASPIRIN 81 MG PO SCH (07:44)
[2020-09-17] MEDS: OXcarbazepine 300 MG TAB PO SCH ×2 (07:44→19:58)
[2020-09-17] MEDS: carvediloL 3.125 MG TAB PO SCH ×2 (07:44→17:39)
[2020-09-17] MEDS: clonazePAM 1 MG TAB PO SCH ×3 (07:44→21:19)
[2020-09-17] MEDS: ISOSORBIDE MONONITRATE ER 30 MG TAB.ER.24H PO SCH (07:44)
[2020-09-17] MEDS: PARoxetine 20 MG TAB PO SCH (07:45)
[2020-09-17] MEDS ORDERED: LORazepam 0.5 MG TAB PO PRN (10:48)
--- NOTE | 2020-09-17 11:00 | ECHOF ---
Referral Reason:shortness of breath MEASUREMENTS -------- HEIGHT: 160.0 cm WEIGHT: 59.0 kg BP: IVSd: 1.1 cm (0.6 - 1.1) LVIDd: 5.1 cm (3.9 - 5.3) LVPWd: 1.0 cm (0.6 - 1.1) IVSs: 0.8 cm LVIDs: 4.2 cm LVPWs: 1.0 cm LAESV Index (A-L): 28.10 ml/m Ao Diam: 2.5 cm (2.0 - 3.7) AV Cusp: 1.9 cm (1.5 - 2.6) LA Diam: 2.5 cm (2.7 - 3.8) MV EXCURSION: 11.453 mm (> 18.000) MV EF SLOPE: 107 mm/s (70 - 150) EPSS: 2.0 cm MV E Chance: 0.93 m/s MV DecT: 135 ms MV A Chance: 1.39 m/s MV E/A Ratio: 0.66 RAP: 5.00 mmHg RVSP: 8.27 mmHg FINDINGS -------- This was a technically good study. The left ventricular size is normal. Left ventricular wall thickness is normal. There is severe g lobal hypokinesis of LV . Overall left ventricular systolic function is severely impaired with, an EF between 20 - 25 %. Normal LAP. Grade 1 Diastolic Dysfunction. Basal Segment Jackie only. The right ventricle is normal in size. The left atrial size is normal. Normal LA size by volume 22+/-6 ml/m2. The right atrial size is normal. The aortic valve is trileaflet and appears structurally normal. The mitral valve is normal. Moderate mitral regurgitation is present. The tricuspid valve appears structurally normal. Mild tricuspid regurgitation present. Right vent ricular systolic pressure is normal at < 35 mmHg. There is no pulmonic regurgitation present. The aortic root size is normal. Normal inferior vena cava with normal inspiratory collapse consistent with estimated right atrial pre ssure of 5 mmHg. There is no pericardial effusion. CONCLUSIONS -------- 1. The left ventricular size is normal. 2. Left ventricular wall thickness is normal. 3. There is severe global hypokinesis of LV . 4. Overall left ventricular systolic function is severely impaired with, an EF between 20 - 25 %. 5. Normal LAP. Grade 1 Diastolic Dysfunction. 6. Basal Segment Jackie only. 7. Moderate mitral regurgitation is present. 8. Mild tricuspid regurgitation present. 9. There is no pericardial effusion. SKIN CARE THERAPIST: Becki Saenz RDCS
[2020-09-17 11:53] LABS: Glucose,Whole Blood 148 mg/dL (75-99)
[2020-09-17] MEDS ORDERED: busPIRone HCl 5 MG TAB PO PRN (13:17)
--- NOTE | 2020-09-17 13:22 | P.CN ---
Psychiatric Consult - . Consult date: 09/17/20 Consult:: 09/17/20 13:07 IDENTIFYING DATA: This patient is a 70-year-old female with a history of breast cancer who currently lives alone in a house is single and has 3 kids. REASON FOR REFERRAL: Psychiatry was consulted for "anxiety/agitation". HISTORY OF PRESENT ILLNESS: The patient presented to the hospital on 09/12/20 for severe lower back and pelvic pain. Patient apparently has a history of breast cancer and underwent surgery recently and has been having intractable pain. Patient was admitted medically and has been followed by pain management. Nurse taking care of patient states that patient has been fairly anxious requiring Klonopin and Ativan frequently. Patient was seen today at the bedside and agreeable to speak a curriculum writer. She was fairly cooperative with curriculum writer and did not display any irritability. She was tearful at times when describing her medical condition and also the pain that she is undergoing. She claims that she is scared of needles and will be doing a epidural injection today that she is nervous about. She states that she has not got on chemotherapy as of yet however will be starting a new treatment for breast cancer. She states that she has underwent a lot of surgeries for orthopedic complaints and also her breast surgery which left scar tissue in her arm. She claims that her anxiety has been increasing since being in the hospital and also related to the pain. She states that she's been having poor sleep approximately 2-3 hours a night. She describes poor appetite. Patient began speaking about her sister's who years ago and was tearful . At this time patient denies any suicidal or homical ideations, intent or plan. Patient denies any auditory, visual hallucinations and denies any paranoia or delusions. Patients admits to using cigarettes daily however denies any other recreational drug use PAST PSYCHIATRIC HISTORY: Patient has a a history of anxiety and depression.. Patient is on Paxil, trazodone and also taking Klonopin at home . She states that she was once admitted to the mental health unit several years ago however cannot remember when. Patient states that she follows up with Dr. Anthony who is her outpatient psychiatrist. Patient denies any history of suicide attempts in the past. PAST MEDICAL HISTORY: Breast cancer and recently underwent surgery. CAD, diabetes mellitus, GERD, hyperlipidemia. ALLERGIES: as per EMR. CHEMICAL DEPENDENCY HISTORY: as per HPI. FAMILY PSYCHIATRIC/SUBSTANCE USE HISTORY: denies SOCIAL HISTORY: Patient was born and raised in [facility]. She states that she completed up to the 11th grade of school and denies any legal history. 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 MENTAL STATUS EXAM: General Appearance: Patient appears to be short in stature, stated age is alert, directable, and cooperative. Tearful at times. Patient appears to have fair hygiene and grooming wearing hospital gown with fair eye contact. Unsteady gait. Behavior: Patient is calmly lying in bed without any agitated behavior. Tearful at times. Speech: Patient's speech is fluent and nonpressured. Mood/Affect: Patient reports their mood is "depressed and anxious", affect is congruent Suicidality/Homicidality: Patient denies having any suicidal or homicidal ideation intent or plan. Perceptions: Patient denies any visual hallucinations and denies any auditory hallucinations Though content/process: There is no evidence of any delusional thought content and thought process is linear and goal-directed. Focused on pain and also anxiety. Memory and concentration: AOX3, grossly intact for the purposes of this session. Can spell "WORLD" backwards Judgment and insight: Fair IMPRESSIONS: Major depressive disorder, mild Anxiety disorder unspecified, likely secondary to pain Pain disorder with related psychological factors Nicotine dependence PLAN: -At this time patient DOES NOT meet criteria for inpatient psychiatric admission. Patient's increase in anxiety and depression while in the hospital are most likely attributed to patient undergoing numerous procedures/testing and also increased level of pain. As pain management improves, patient's anxiety and mood should improve as well. -Would recommend the following medication changes/additions: Increase trazodone to 150 mg daily at bedtime for insomnia/mood, increase Klonopin to 1 mg 3 times a day scheduled dose for anxiety. Added to buspar 50 mg 3 times a day when necessary for anxiety. Continue with current dose of Paxil. would attempt to limit further increases or addition of more Benzodiazepines given patients older age and risk for falls/confusion. -Communicated plan to patient's nurse -Patient will be following up with Dr. Anthony, her psychiatrist upon discharge. -Will continue to follow along -Please contact with any questions.
[2020-09-17] MEDS ORDERED: LACTATED RINGERS 1,000 ML IV ONE (13:40)
[2020-09-17] MEDS ORDERED: LIDOCAINE 1% (10MG/ML) FOR IV START INTRADERMA ONE (13:40)
[2020-09-17 14:04] LABS: Glucose,Whole Blood 160 mg/dL (75-99)
[2020-09-17] MEDS ORDERED: IOPAMIDOL M200 10 ML VIAL ONE (14:13)
[2020-09-17] MEDS ORDERED: methylPREDNISolone ACETATE 40 MG/ML 1 ML VIAL ONE (14:13)
[2020-09-17] MEDS ORDERED: MIDAZOLAM 2 MG/2 ML VIAL ONE (14:13)
[2020-09-17] MEDS ORDERED: fentaNYL (PF) 50 MCG/ML 2 ML AMP ONE (14:13)
--- NOTE | 2020-09-17 14:28 | P.PCN ---
Date of Procedure: 09/17/20 Procedure(s) Performed: PREOPERATIVE DIAGNOSIS: 1- Lumbar Degenerative Disc Diseases 2-Lumbar spondylosis with Facet arthropathy without myelopathy POSTOPERATIVE DIAGNOSIS: Same as preop diagnosis. PROCEDURE 1. Lumbar epidural steroid injection under fluoroscopic guidance at the L5-S1 level. (Fluoroscopy imaging was available in radiology department) 2. Lumbar epidurogram. ANESTHESIA: Local with 1% lidocaine 3 ml and , moderate sedation with intravenous Versed 2 mg ,and fentanyle 100 Mcg EBL: Minimal PROCEDURE INDICATION: The patient with low back pain and radiculitis symptoms unresponsive to conservative treatment. Fluoroscopy was used to optimize visuali zation of the needle placement and to maximize safety. PROCEDURE DESCRIPTION / TECHNIQUE: The patient was seen and identified in the preoperative area. Risks, benefits, complications including but not limited to infections ,bleeding ,allergic reaction to the medications ,nerve damage and not complete pain releife , and alternatives were discussed with the patient. The patient agreed to proceed with the procedure and signed the consent. IV was started, and vital signs were stable. Patient was taken to the OR and time out was completed. The patient was placed in the prone position on procedure table and a pillow was placed under the abdomen to reduce lumbar lordosis. The lumbosacral area was prepped and draped in the usual sterile fashion.ere closely monitored during the procedure. Conscious sedation was used during the procedure to decrease patients anxiety. Vital signs was monitered during the entire procedure. Using anterior-posterior fluoroscopy, the L5-S1 interlaminar space was identified and the skin over this site was marked and then infiltrated with 1% lidocaine subcutaneously. Subsequently, a 20-gauge Tuohy epidural needle was inserted and advanced toward the epidural space using the ``Loss of resistance technique and guided by AP and lateral fluoroscopy. The correct needle position in the epidural space was verified with the injection of 2 mL of the water sravanthi uble contrast dye Isovue 200 contrast and observing an excellent epidurogram with the epidural spread of the dye, after negative aspiration for blood and CSF and in the absence of paresthesias. Again after negative aspiration, a 6 ml mixture containing 40 mg of Depo-medrol , and 2 ml of preservative free Normal Saline, and 2 ml of preservative free lidocaine 1% solution was injected and a washout of epidurogram was seen. Needle was withdrawn intact, skin was cleansed, and bandages were applied. COMPLICATIONS: None note = I attempted to perform the epidural steroid injection at L4 5 level ,but I was not able to identify the epidural space at that level, for this reason I performed the procedure at L5-S1.. DISPOSITION / PLANS: The patient was placed in a supine position and transferred to the recovery area in a stable condition for observation. There was no evidence of lower extremity motor or sensory deficit after the procedure. Patient was discharged from the recovery room after meeting discharge criteria. Home discharge instructions were given to the patient by the staff. The patient was reexamined prior to discharge. The patient will schedule a follow up in the clinic in 2-4 weeks.
--- NOTE | 2020-09-17 16:49 | FL ---
Fluoroscopy INDICATION: Pain FINDINGS: Fluoroscopy time: 2 seconds. Images obtained: 1. IMPRESSIONS: 1. Documentation of fluoroscopy.
--- NOTE | 2020-09-17 16:59 | P.PN ---
Subjective Progress Note Date: 09/17/20 70-year-old female came in with the severe back pain with diabetic retinopathy symptoms. CT of the abdomen was done which showed some fecal stasis along with the L1-L2 level [id number] displacement of narrowing with facet arthropathy. Patient is complaining of severe 10/10 pain. Patient pain is bit better compared to yesterday. Patient was started on Decadron pain medications subsequently admitted with neurology consult. Patient denied any loss of bowel or bladder continence. Patient does have history of breast cancer had lumpectomy in the past patient was supposed to follow-up with oncology never followed. As patient doesn't want chemotherapy. Patient is bit hyponatremic attributed to be dehydrated denied any nausea vomiting diarrhea. 09/14/2020 Patient is seen and evaluated and follow-up and currently awaiting to undergo MRI of the spine along with bone scan. Multiple medical consultations including orthopedics, oncology, neurology evaluating the patient. No surgical inter vention planned at this time. Awaiting pain management consult patient continues to have pain and discomfort in her back. Waiting PT/OT evaluation as she refused yesterday due to increased nausea. No reports of vomiting noted and continues to have occasional nausea. 09/15/2020 Patient is seen this morning and continues to have nausea intermittent with lower back pain. Patient underwent MRI of the lumbar spine showing mild to moderate multilevel degenerative changes and bone scan showed no suspicious findings or increased uptake to suggest metastatic disease to the bone or other suspicious abnormality. A she also underwent chest CT which was negative for any evidence of thoracic metastatic disease. Cardiology is following along with orthopedics. Pain management is consulted and pending at this time. Per patient there was possible discussion of epidural injections and will discuss with orthopedics and await pain management consult. PT/OT to evaluate the patient as well although personally walked the patient to the bathroom and back with only standby assist secondary to the IV pole handling. Patient was concerned with pulling out and IV. Gait was steady with no dizziness, lightheadedness noted. Patient states her plan is to return home and has family support. Continues to refuse any form of chemotherapy if necessary. Oncology is aware. 09/16/2020 Patient is seen and evaluated this morning continues to have extreme lower back pain stating her pain is 10 out of 10. Pain management consulted and evaluated the patient recommending epidural injection and will hold Lovenox at this time. Patient will be scheduled to have injections in the morning. Patient had an episode of extreme dyspnea and shortness of breath and was noted to have an oxygen saturation of less than 80% and was placed on a nonrebreather. Patient was given a one-time dose of IV Lasix 20 mg and also had chest x-ray showing diffuse pulmonary interstitial edema. Patient states her breathing has improved after the Lasix and is currently on room air at 95% oxygenation. White blood count slightly elevated at 14.5 although patient has been on IV steroids, hemoglobin stable at 12.7, sodium is 132, potassium is 4.6, current creatinine is 0.91. Blood sugars being monitored and treated accordingly with sliding scale and long-acting and will continue. IV fluids have been discontinued. 09/17/2020 Patient is seen this morning and currently awaiting to undergo epidural injections with pain management. Anticoagulants have been on hold and will discuss with pain management about resuming. She continues to have lower back pain that she rates as severe and 9 out of 10 on the pain scale. Patient denies any shortness of breath chest pain or palpitations. Patient is afebrile. She is tolerating diet although continues to have abdominal discomfort and occasional nausea throughout the day. She is currently 96% on room air. Patient was also seen and evaluated by psychiatry recommending medication adjustments. Along with adding BuSpar for her increased anxiety. Patient does take Klonopin which has been increased as well. Patient does see Dr. Anthony her psychiatrist in the outpatient setting and will continue to follow with him. Review of systems: Constitutional: No reports of fatigue, fever, or chills Cardiovascular: No reports of chest pain or palpitations Respiratory: No reports of shortness of breath or cough GI: Reports intermittent nausea, no reports of vomiting, or diarrhea : No reports of dysuria or retention Neurovascular: No reports of weakness or numbness, reports continued back pain with severity of 9/10 pain scale All medications have been reviewed Active Medications Hydrocodone Bitart/Acetaminophen (Hydrocodone/Apap 5-325mg 1 Each Tab) 1 each PO Q8H PRN PRN Reason: Pain Last Admin: 09/17/20 13:03 Dose: 1 each Documented by: Aspirin (Aspirin 81 Mg) 81 mg PO DAILY ADAN Last Admin: 09/17/20 07:44 Dose: 81 mg Documented by: Atorvastatin Calcium (Atorvastatin 80 Mg Tab) 80 mg PO [facility] Last Admin: 09/16/20 20:57 Dose: 80 mg Documented by: Buspirone HCl (Buspirone Hcl 5 Mg Tab) 15 mg PO TID PRN PRN Reason: Anxiety Carvedilol (Carvedilol 3.125 Mg Tab) 3.125 mg PO AC-BID [facility] Last Admin: 09/17/20 07:44 Dose: 3.125 mg Documented by: Clonazepam (Clonazepam 1 Mg Tab) 1 mg PO TID [facility] Last Admin: 09/17/20 16:06 Dose: 1 mg Documented by: Hydromorphone HCl (Hydromorphone 0.5 Mg/0.5 Ml Syringe) 0.5 mg IVP Q2HR PRN PRN Reason: Pain Last Admin: 09/17/20 00:54 Dose: 0.5 mg Documented by: Insulin Aspart (Insulin Aspart (Novolog) 100 Unit/Ml Vial) 0 unit SQ AC-TID [facility]; Protocol Last Admin: 09/17/20 13:04 Dose: 1 unit Documented by: Insulin Detemir (Insulin Detemir (Levemir) 100 Unit/Ml Syr) 5 unit SQ [facility] Last Admin: 09/16/20 20:49 Dose: 5 unit Documented by: Isosorbide Mononitrate (Isosorbide Mononitrate Er 30 Mg Tab.Er.24h) 30 mg PO QAM [facility] Last Admin: 09/17/20 07:44 Dose: 30 mg Documented by: Lactulose (Lactulose 20 Gm/30 Ml Cup) 20 gm PO DAILY [facility] Last Admin: 09/17/20 07:43 Dose: 20 gm Documented by: Letrozole (Letrozole 2.5 Mg Tab) 2.5 mg PO DAILY [facility] Metoclopramide HCl (Metoclopramide 5 Mg/Ml 2 Ml Vial) 5 mg IVP Q6H PRN PRN Reason: Nausea And Vomiting Last Admin: 09/17/20 01:41 Dose: 5 mg Documented by: Nicotine (Nicotine 21mg/24hr Patch) 1 patch TRANSDERM DAILY [facility] Last Admin: 09/17/20 07:44 Dose: 1 patch Documented by: Ondansetron HCl (Ondansetron 4 Mg/2 Ml Vial) 4 mg IVP Q6HR PRN PRN Reason: Nausea And Vomiting Last Admin: 09/17/20 06:12 Dose: 4 mg Documented by: Oxcarbazepine (Oxcarbazepine 300 Mg Tab) 300 mg PO BID [facility] Last Admin: 09/17/20 07:44 Dose: 300 mg Documented by: Pantoprazole Sodium (Pantoprazole 40 Mg Tablet) 40 mg PO QAM [facility] Last Admin: 09/17/20 07:44 Dose: 40 mg Documented by: Paroxetine HCl (Paroxetine 20 Mg Tab) 40 mg PO DAILY [facility] Last Admin: 09/17/20 07:45 Dose: 40 mg Documented by: Polyethylene Glycol (Polyethylene Glycol 3350 17 Gm Powd.Pack) 17 gm PO DAILY PRN PRN Reason: Constipation Last Admin: 09/16/20 08:35 Dose: 17 gm Documented by: Senna (Sennosides 8.6 Mg Tab) 8.6 mg PO DAILY [facility] Last Admin: 09/17/20 07:44 Dose: 8.6 mg Documented by: Trazodone HCl (Trazodone Hcl 50 Mg Tab) 150 mg PO [facility] Objective - Vital Signs Vital signs: Vital Signs Temp 98.6 F 09/17/20 13:40 Pulse 72 09/17/20 15:12 Resp 16 09/17/20 13:40 BP 120/75 09/17/20 15:12 Pulse Ox 96 09/17/20 13:40 Intake & Output 09/16/20 09/17/20 09/17/20 18:59 06:59 18:59 Intake Total 50 Balance 50 Intake: IV 50 Other: Voiding Method Toilet Toilet Toilet # Voids 5 2 - Exam GENERAL: The patient is alert and oriented x3, not in any acute distress. Anxious. Well developed, well nourished. Temp is 98.6F, pulse is 86, respirations are 16, blood pressure 136/66, oxygen saturation is 96% on room air. HEENT: Pupils are round and equally reacting to light. EOMI. No scleral icterus. No conjunctival pallor. Normocephalic, atraumatic. No pharyngeal erythema. No thyromegaly. CARDIOVASCULAR: S1, S2 are muffled PULMONARY: Diminished breath sounds bilaterally with no wheezing or rhonchi noted ABDOMEN: Soft, nontender, nondistended, normoactive bowel sounds. No palpable organomegaly. MUSCULOSKELETAL: There is mild tenderness to paraspinal area bilaterally in the lower lumbar spine noted on exam. EXTREMITIES: No cyanosis, clubbing, or pedal edema. NEUROLOGICAL: Gross neurological examination did not reveal any focal deficits. SKIN: No rashes. - Labs CBC & Chem 7: 09/16/20 09:14 09/16/20 09:14 Labs: Abnormal Lab Results - Last 24 Hours (Table) 09/16/20 09/16/20 09/17/20 Range/Units 17:34 20:11 07:12 POC Glucose (mg/dL) 199 H 167 H 118 H (75-99) mg/dL 09/17/20 09/17/20 Range/Units 11:51 13:59 POC Glucose (mg/dL) 148 H 160 H (75-99) mg/dL Assessment and Plan Assessment: -Severe back pain with radiculopathy -History of breast cancer declining treatment -Acute renal failure prerenal azotemia, improved -Hypertension -History of coronary artery disease -History of myocardial infarction -History of gout -Diabetes mellitus -Hyperlipidemia -Gastroesophageal reflux disease -History of anxiety, bipolar, depression, mood disorder -DVT prophylaxis with Lovenox -GI prophylaxis: Protonix Recommendations and discussion: Continue with current medications, management, and symptomatic treatment. Orthopedic surgery along with neurology following and oncology. Pain management evaluated the patient be receiving epidural injections and will hold Lovenox today. She continues to have pain and spasms of her lower back. Will discontinue IV steroids. She was seen and evaluated by psychiatry recommending medications adjustments as previously mentioned. Patient continues to be anxious today and will increase Klonopin as needed. Continue to monitor blood sugars and treat accordingly with sliding scale and long-acting. Encourage oral intake. Due to multiple complex medical issues, prognosis is guarded. Further recommendations to follow. Possible discharge in 24-48 hours.
[2020-09-17 17:10] LABS: Glucose,Whole Blood 138 mg/dL (75-99)
[2020-09-17] MEDS: ATORVASTATIN 80 MG TAB PO SCH (19:57)
[2020-09-17 20:16] LABS: Glucose,Whole Blood 175 mg/dL (75-99)
[2020-09-17] MEDS ORDERED: traZODone HCL 50 MG TAB PO SCH (21:00)
[2020-09-17] MEDS: INSULIN DETEMIR (LEVEMIR) 100 UNIT/ML SYR SQ SCH (21:21)
--- NOTE | 2020-09-17 22:32 | P.PN ---
Subjective Progress Note Date: 09/17/20 Principal diagnosis: Intractable back pain Status Post Lumbar epidural steroid injection under fluoroscopic guidance at the L5-S1 level. Has also intiated letrazole. She has been educated but will need re-inforcement Objective - Vital Signs Vital signs: Vital Signs Temp 97.9 F 09/17/20 20:38 Pulse 84 09/17/20 20:38 Resp 18 09/17/20 20:38 BP 115/68 09/17/20 20:38 Pulse Ox 92 L 09/17/20 20:38 Intake & Output 09/17/20 09/17/20 09/18/20 06:59 18:59 06:59 Intake Total 450 Balance 450 Intake: IV 50 Oral 400 Other: Voiding Method Toilet Toilet # Voids 2 2 - Exam - Constitutional General appearance: cooperative, no acute distress - EENT Eyes: EOMI, PERRLA ENT: NA/AT, normal oropharynx - Neck Neck: normal ROM - Cardiovascular Rhythm: regular Heart sounds: normal: S1, S2 - Gastrointestinal General gastrointestinal: soft, tenderness - Integumentary Integumentary: pale - Neurologic Neurologic: CNII-XII intact - Musculoskeletal lower ext Musculoskeletal: generalized weakness - Psychiatric Psychiatric: A&O x's 3 - Labs CBC & Chem 7: 09/16/20 09:14 09/16/20 09:14 Labs: Abnormal Lab Results - Last 24 Hours (Table) 09/17/20 09/17/20 09/17/20 Range/Units 07:12 11:51 13:59 POC Glucose (mg/dL) 118 H 148 H 160 H (75-99) mg/dL 09/17/20 09/17/20 Range/Units 17:09 20:15 POC Glucose (mg/dL) 138 H 175 H (75-99) mg/dL Assessment and Plan (1) History of breast cancer Current Visit: Yes Status: Acute Code(s): Z85.3 - PERSONAL HISTORY OF MALIGNANT NEOPLASM OF BREAST SNOMED Code(s): 946786005 (2) Intractable back pain Current Visit: Yes Status: Acute Code(s): M54.9 - DORSALGIA, UNSPECIFIED SNOMED Code(s): 413032176 Plan: Assessment and Recommendations: New Onset back pain and lower extremity weakness: - Ortho is following Reviewed MRIs Recent History of Breast Cancer: - Diagnosed ER+ HER2 neg locally advanced breast cancer with three positive lymph nodes. - She underwent lumpectomy in February, original bx was December 2019 - She opted for no chemo however she never represented to discuss adjuvant hormonal therapy and refused to follow back up despite multiple attempts to reschedule. - There is no new signs of recurrence thus far, she has agreed to follow up for AI endocrine therapy after intervention for acute back pain Status POst intervention Lumbar epidural steroid injection under fluoroscopic guidance at the L5-S1 level. With ortho. Have patient follow-up in 3-4 weeks in office to assess toleration of AI
[2020-09-18 07:01] LABS: Glucose,Whole Blood 116 mg/dL (75-99)
[2020-09-18] MEDS: INSULIN ASPART (NovoLOG) 100 UNIT/ML VIAL SQ SCH ×2 (07:15→13:18)
[2020-09-18] MEDS: NICOTINE 21MG/24HR PATCH TRANSDERM SCH (08:23)
[2020-09-18] MEDS: LACTULOSE 20 GM/30 ML CUP PO SCH (08:23)
[2020-09-18] MEDS: ASPIRIN 81 MG PO SCH (08:24)
[2020-09-18] MEDS: SENNOSIDES 8.6 MG TAB PO SCH (08:24)
[2020-09-18] MEDS: ISOSORBIDE MONONITRATE ER 30 MG TAB.ER.24H PO SCH (08:25)
[2020-09-18] MEDS: PARoxetine 20 MG TAB PO SCH (08:25)
[2020-09-18] MEDS: PANTOPRAZOLE 40 MG TABLET PO SCH (08:25)
[2020-09-18] MEDS: OXcarbazepine 300 MG TAB PO SCH (08:25)
[2020-09-18] MEDS: clonazePAM 1 MG TAB PO SCH (08:28)
[2020-09-18] MEDS ORDERED: LETROZOLE 2.5 MG TAB PO SCH (09:00)
[2020-09-18] MEDS: carvediloL 3.125 MG TAB PO SCH (09:11)
[2020-09-18] MEDS: HYDROcodone/APAP 5-325MG 1 EACH TAB PO PRN (09:41)
--- NOTE | 2020-09-18 11:34 | P.PN ---
Progress Note - Text Progress Note Date: 09/18/20 The MRI has been reviewed and lumbar spine and we reviewed the chart. I agree with the conservative treatment and interventional pain management as per the pain management service. I would continue with the medical management for her pain and encourage mobilization with physical therapy. She does have some degenerative changes at her lumbar spine particularly at L3 4 and L4 5 but I would not plan any acute surgical intervention at this point. The changes we see at lumbar spine would not account for any acute neurologic loss or Tracy any expected neurologic decline based on the findings on MRI. She should continue with conservative management and follow up with our service on an outpatient basis as needed.
--- NOTE | 2020-09-18 11:48 | CDI ---
Documentation Clarification Form Date: 09/18/2020 11:02:08 AM From: Lela Escobar RN CCDS Admit Date: 09/14/2020 09:04:00 AM Patient Name: Vanesa Cole Visit Number: [id number] Discharge Date: ATTENTION: The Clinical Documentation Specialists (CDI) and [facility] Coding Staff appreciate your assistance in clarifying documentation. Please respond to the clarification below the line at the bottom and electronically sign. The CDI & [facility] Coding staff will review the response and follow-up if needed. Please note: Queries are made part of the Legal Health Record. If you have any questions, please contact the author of this message via ITS. Dr. Rebekah Smallwood, There is moderate pulmonary edema with right pleural effusion. This probably relates to congestive heart failure. CXR 09/15 History/Risk Factors: 70-year-old female presented to the ED with severe back pain. Medical History: CAD and [place]. Documented in H&P /. Clinical Indicators: VS/Pulse OX 09/15: B/P 163/75; HR 73; Temp 98.0 F Oral; RR 16; SpO2 91% room air Echocardiogram Results 09/16: Severe global hypokinesis of LV. Left ventricular systolic function is severely impaired with EF 20-25% Chest X Ray 09/15: Moderate pulmonary edema with right pleural effusion. Probably relates to congestive heart failure. Internal Medicine Progress Note 09/16: Patient had an episode of extreme dyspnea and shortness of breath and was noted to have an oxygen saturation of less than 80% and was placed on a nonrebreather. Patient was given a one-time figueroa of IV Lasix 20 mg and also had chest x-ray showing diffuse pulmonary interstitial edema. Treatment: 09/12 Coreg 3.125 mg PO AC BID; 09/15 Lasix 20mg IV x1. In your professional opinion, can you please clarify the acuity and type of CHF if known? Acute on chronic Systolic Heart Failure: Chronic Systolic Heart Failure: Heart Failure Ruled Out: Unable to Determine: Other, please specify: (Last Revision: October 2017) Chronic Systolic Heart Failure: MTDD
[2020-09-18 11:58] LABS: Glucose,Whole Blood 136 mg/dL (75-99)
--- NOTE | 2020-09-18 12:12 | P.PN ---
Progress Note - Text Progress Note Date: 09/18/20 Interval History: Patient was seen today for psychiatric follow-up regarding patient's depression and anxiety. Patient was speaking with a nurse prior to speaking with fiction and nonfiction writer prose. She appeared to have a brighter affect today and states that she is doing "better" with regards to her anxiety and her mood. She was tearful at times when describing her medical condition however for the most part was fairly optimistic in her thought content and more future oriented today. She claims that the standing dose of Klonopin has been helping her however requested to have her BuSpar scheduled as well. She claims that she was able to sleep better on the trazodone being increased last night. She states that she tolerated the procedure well yesterday and the pain has been getting better. She spoke about going to her son's house upon discharge today. At this time patient denies any suicidal or homical ideations, intent or plan. Patient denies any auditory, visual hallucinations and denies any paranoia or delusions. Patient denies any side effects from the medications and has been compliant with meds. Mental Status Exam: General Appearance: Patient appears to be short in stature, stated age is alert, directable, and cooperative. Less tearful today. Patient appears to have fair hygiene and grooming wearing hospital gown with fair eye contact. Behavior: Patient is calmly lying in bed without any agitated behavior. Less tearful today Speech: Patient's speech is fluent and nonpressured. Mood/Affect: Patient reports their mood is "better", affect is congruent Suicidality/Homicidality: Patient denies having any suicidal or homicidal ideation intent or plan. Perceptions: Patient denies any visual hallucinations and denies any auditory hallucinations Though content/process: There is no evidence of any delusional thought content and thought process is linear and goal-directed. Focused on anxiety. More future oriented today. Memory and concentration: AOX3, grossly intact for the purposes of this session. Can spell "WORLD" backwards Judgment and insight: Fair Assessment Major depressive disorder, mild Anxiety disorder unspecified, likely secondary to pain Pain disorder with related psychological factors Nicotine dependence Plan: -At this time patient DOES NOT meet criteria for inpatient psychiatric admission. Patient's increase in anxiety and depression while in the hospital are most likely attributed to patient undergoing numerous procedures/testing and also increased level of pain. As pain management improves, patient's anxiety and mood should improve as well. -Would recommend the following medication changes/additions: Continue with trazodone to 150 mg daily at bedtime for insomnia/mood, continue with Klonopin to 1 mg 3 times a day scheduled dose for anxiety. Changed buspar 15 mg 3 times a day standing dose for anxiety. Continue with current dose of Paxil. would attempt to limit further increases or addition of more Benzodiazepines given patients older age and risk for falls/confusion. -Communicated plan to patient's nurse -Patient will be following up with Dr. Anthony, her psychiatrist upon discharge. -At this time psychiatry will sign off. -Please contact with any questions.
[2020-09-18] MEDS ORDERED: busPIRone HCl 5 MG TAB PO SCH (12:15)
[2020-09-18 12:19] VITALS: BP 106/65; PULSE 72; RESP 16; TEMP 98.6
[2020-09-18 17:01] LABS: Albumin 3.77 g/dL (3.80-4.90); Gamma Globulin 0.63 g/dL (0.70-1.50)
--- NOTE | 2020-09-19 09:26 | P.DS ---
Providers Date of admission: 09/14/20 09:04 Expected date of discharge: 09/18/20 Attending physician: Corona Roach MD Consults: 09/12/20 15:47 Consult Physician Urgent Consulting Provider: Karen Aiken Consult Reason/Comments: Excruciating back pain Do you want consulting provider notified?: Yes 09/13/20 10:55 Consult Physician Routine Consulting Provider: Glenn Russ Consult Reason/Comments: breast cancer Do you want consulting provider notified?: Yes 09/13/20 12:22 Consult Physician Routine Consulting Provider: Amilcar Hooker Consult Reason/Comments: back pain Do you want consulting provider notified?: Yes 09/16/20 15:32 Consult Physician Routine Consulting Provider: Nakul Daniels Consult Reason/Comments: Evaluate for competency Do you want consulting provider notified?: Yes 09/17/20 11:02 Consult Physician Routine Consulting Provider: Nakul Daniels Consult Reason/Comments: increased anxiety/agitation Do you want consulting provider notified?: Yes Primary care physician: Nancy Chavez Hospital Course: Final diagnosis -Severe back pain with radiculopathy -History of breast cancer declining treatment -Chronic systolic heart failure -Acute renal failure prerenal azotemia, improved -Hypertension -History of coronary artery disease -History of myocardial infarction -History of gout -Diabetes mellitus -Hyperlipidemia -Gastroesophageal reflux disease -History of anxiety, bipolar, depression, mood disorder -DVT prophylaxis -GI prophylaxis Discharge disposition Patient is being discharged in a stable condition with guarded prognosis to [facility]. Patient will follow-up with Dr. Chavez in the outpatient setting upon discharge. Patient is also instructed to follow-up with the pain clinic, and orthopedics, and her psychiatrist Dr. Anthony in the outpatient setting. Total time taken is greater than 35 minutes. Hospital course This is a 70-year-old female who was recently admitted with severe intractable back pain along with diabetic retinopathy symptoms and was being closely monitored. Multiple medical consultations following including orthopedics, pain management, oncology ,psychiatry, and neurology. Patient had a CT of the a bdomen showed some fecal stasis along with mild to moderate displacement and narrowing with facet arthropathy in the L1/L2 region and was seen by orthopedic surgery recommending medical management as patient is not a candidate for surgery. Was also seen and evaluated by pain management and underwent epidural injections for pain. Patient will be following up with the pain management clinic in the outpatient setting. Patient does have a history of breast cancer and is refusing any form of chemo or radiation and had failed to follow-up with oncology in the outpatient setting. Patient does see Dr. Anthony in the outpatient setting as well and will follow-up with him upon discharge. Psychiatry evaluated the patient and adjustments to medications have been made. Patient states she feels much better and is currently on room air and is asking to go home. Currently no reports of chest pain, shortness of breath, or palpitations. Patient is afebrile. No reports of nausea or vomiting and patient is tolerating diet. Patient is asking to go home today. Patient will be discharged home today. Guarded prognosis. On exam vital signs are stable. Cardio S1, S2 are muffled. Respiratory system shows diminished breath sounds at the bases with no wheezing or rhonchi noted. Abdomen is soft and nontender. Nervous system shows no focal deficits. Please refer to medication reconciliation sheet for a list of medications. Patient Condition at Discharge: Stable Plan - Discharge Summary Discharge Rx Participant: No New Discharge Prescriptions: New busPIRone HCl [Buspar] 15 mg PO TID 30 Days #90 tab traZODone HCL [Desyrel] 150 mg PO HS #30 tab Letrozole [Femara] 2.5 mg PO DAILY 30 Days #30 tab clonazePAM [KlonoPIN] 1 mg PO TID #12 tab Sennosides [Senokot] 8.6 mg PO DAILY 30 Days #30 tab Continue PARoxetine HCL [Paxil] 40 mg PO DAILY Isosorbide Mononitrate ER [Imdur] 30 mg PO QAM carvediloL [Coreg] 3.125 mg PO AC-BID Insulin Glargine,Hum.rec.anlog [Lantus Solostar] 5 unit SQ HS Atorvastatin [Lipitor] 80 mg PO HS ondansetron HCL [Zofran] 8 mg PO Q12H PRN #30 tab PRN Reason: Nausea And Vomiting Omeprazole 20 mg PO QAM OXcarbazepine [Trileptal] 300 mg PO BID Ergocalciferol [Vitamin D2 (1250 Mcg = 21673 Iu)] 1,250 mcg PO Q7D HYDROcodone/APAP 5-325MG [Foss 5-325] 1 tab PO Q8H PRN PRN Reason: Pain Aspirin EC [Ecotrin Low Dose] 81 mg PO DAILY Discontinued traZODone HCL [TraZODone HCl] 100 mg PO HS PRN PRN Reason: sleep lisinopriL [Zestril] 10 mg PO QAM clonazePAM [KlonoPIN] 0.5 - 1 mg PO DAILY Discharge Medication List PARoxetine HCL [Paxil] 40 mg PO DAILY 06/24/16 [History] Isosorbide Mononitrate ER [Imdur] 30 mg PO QAM 09/02/17 [History] carvediloL [Coreg] 3.125 mg PO AC-BID 09/02/17 [History] Atorvastatin [Lipitor] 80 mg PO HS 11/29/19 [History] Insulin Glargine,Hum.rec.anlog [Lantus Solostar] 5 unit SQ HS 11/29/19 [History] ondansetron HCL [Zofran] 8 mg PO Q12H PRN #30 tab 12/02/19 [Rx] Omeprazole 20 mg PO QAM 01/29/20 [History] OXcarbazepine [Trileptal] 300 mg PO BID 02/19/20 [History] Aspirin EC [Ecotrin Low Dose] 81 mg PO DAILY 09/12/20 [History] Ergocalciferol [Vitamin D2 (1250 Mcg = 68128 Iu)] 1,250 mcg PO Q7D 09/12/20 [History] HYDROcodone/APAP 5-325MG [Foss 5-325] 1 tab PO Q8H PRN 09/12/20 [History] Letrozole [Femara] 2.5 mg PO DAILY 30 Days #30 tab 09/18/20 [Rx] Sennosides [Senokot] 8.6 mg PO DAILY 30 Days #30 tab 09/18/20 [Rx] busPIRone HCl [Buspar] 15 mg PO TID 30 Days #90 tab 09/18/20 [Rx] clonazePAM [KlonoPIN] 1 mg PO TID #12 tab 09/18/20 [Rx] traZODone HCL [Desyrel] 150 mg PO HS #30 tab 09/18/20 [Rx] Follow up Appointment(s)/Referral(s): Kiba,Richie, PAC [PHYSICIAN AIRFRAME DESIGN ENGINEER] - 4 Weeks (Patient may follow-up with Richie Suárez PA-C or Dr. Mohsen Hooker at [facility] in 3-4 weeks following discharge. ) [facility] [NON-STAFF] - 2 Weeks (The office will call you with appointment time and date. ) Nancy Chavez MD [Primary Care Provider] - 09/20/20 11:15 am Ambulatory/Diagnostic Orders: Complete Blood Count w/diff [LAB.AMB] Time Frame: 3 Days, Location: None Selected Patient Instructions/Handouts: Buspirone (By mouth), Clonazepam (By mouth), Trazodone (By mouth), Letrozole (By mouth) Activity/Diet/Wound Care/Special Instructions: Activity Limited until follow-up Follow up with primary care provider upon discharge Follow-up with oncology outpatient Follow-up with pain management outpatient Follow-up with Dr. Anthony in the outpatient setting Continue current diet Consistent carb heart healthy diet Repeat labs in 2-3 days Discharge/Stand Alone Forms: Anes Pain/Wismer Instructions Discharge Disposition: HOME SELF-CARE
== END 2020-09-18 14:58 | disposition home or self-care (01) | DRG 552 ==
LOC: EC 12:17 → 6NMEDSUR 15:59 → OBSVTOIN 09-14 09:04 → 5NMEDONC 09-15 00:52
PROVIDERS: ADMIT Internal Medicine; ATTEND Internal Medicine
PROC: B01B1ZZ Fluoroscopy of Spinal Cord using Low Osmolar Contrast (ICD-10-PCS; 2020-09-17)
PROC: 3E0R33Z Introduction of Anti-inflammatory into Spinal Canal, Percutaneous Approach (ICD-10-PCS; principal; 2020-09-17 14:45)
DX: M51.16 Intervertebral disc disorders with radiculopathy, lumbar region (principal); N17.9 Acute kidney failure, unspecified; C77.3 Secondary and unspecified malignant neoplasm of axilla and upper limb lymph nodes; E87.1 Hypo-osmolality and hyponatremia; I50.22 Chronic systolic (congestive) heart failure; E11.319 Type 2 diabetes mellitus with unspecified diabetic retinopathy without macular edema; C50.411 Malignant neoplasm of upper-outer quadrant of right female breast; I11.0 Hypertensive heart disease with heart failure; F31.9 Bipolar disorder, unspecified; F39 Unspecified mood [affective] disorder; Z20.822 Contact with and (suspected) exposure to COVID-19; Z79.4 Long term (current) use of insulin; I25.10 Atherosclerotic heart disease of native coronary artery without angina pectoris; K21.9 Gastro-esophageal reflux disease without esophagitis; G43.909 Migraine, unspecified, not intractable, without status migrainosus; G89.29 Other chronic pain; M10.9 Gout, unspecified; F41.9 Anxiety disorder, unspecified; F17.210 Nicotine dependence, cigarettes, uncomplicated; E86.0 Dehydration; E78.5 Hyperlipidemia, unspecified; M48.061 Spinal stenosis, lumbar region without neurogenic claudication; F45.42 Pain disorder with related psychological factors; G47.00 Insomnia, unspecified; M47.26 Other spondylosis with radiculopathy, lumbar region; I25.2 Old myocardial infarction; Z79.82 Long term (current) use of aspirin; Z79.899 Other long term (current) drug therapy; Z53.29 Procedure and treatment not carried out because of patient's decision for other reasons; Z87.81 Personal history of (healed) traumatic fracture; Z95.5 Presence of coronary angioplasty implant and graft; Z98.890 Other specified postprocedural states; Z85.72 Personal history of non-Hodgkin lymphomas; Z17.0 Estrogen receptor positive status [ER+]; Z88.5 Allergy status to narcotic agent; Z91.040 Latex allergy status; Z83.3 Family history of diabetes mellitus; Z82.49 Family history of ischemic heart disease and other diseases of the circulatory system; Z80.9 Family history of malignant neoplasm, unspecified
CPT/HCPCS: 36415; 62323; 71045; 71260; 72158; 74177; 78306; 80048; 80053; 81003; 82306; 82607; 82746; 83036; 83921; 83930; 83970; 84165; 85025; 85652; 86140; 86300; 86431; 87635; 93005; 93306; 96361; 96374; 96375; 96376; 99285

== ENCOUNTER 2020-10-08 06:41 | Day surgery (SDC) | payer MEDICARE, OTHER ==
[2020-10-08 07:23] VITALS: TEMP 97.5
[2020-10-08 07:24] LABS: Glucose,Whole Blood 117 mg/dL (75-99)
[2020-10-08] MEDS ORDERED: IOPAMIDOL M200 10 ML VIAL ONE (07:45)
[2020-10-08] MEDS ORDERED: methylPREDNISolone ACETATE 40 MG/ML 1 ML VIAL ONE (07:45)
[2020-10-08 08:05] VITALS: RESP 18
[2020-10-08] MEDS ORDERED: LACTATED RINGERS 1,000 ML IV SCH (08:15)
[2020-10-08 08:19] VITALS: BP 135/76; PULSE 72
--- NOTE | 2020-10-08 08:28 | P.PCN ---
Date of Procedure: 10/08/20 Procedure(s) Performed: PREOPERATIVE DIAGNOSIS: 1- Lumbar Degenerative Disc Diseases 2-Lumbar spondylosis with Facet arthropathy without myelopathy POSTOPERATIVE DIAGNOSIS: Same as preop diagnosis. PROCEDURE 1. Lumbar epidural steroid injection under fluoroscopic guidance at the L5-S1 level. (Fluoroscopy imaging was available in radiology department) 2. Lumbar epidurogram. ANESTHESIA: Local with 1% lidocaine 3 ml only . EBL: Minimal PROCEDURE INDICATION: The patient with low back pain and radiculitis symptoms unresponsive to conservative treatment. Fluoroscopy was used to optimize visualization of the needle placement and to maximize safety. PROCEDURE DESCRIPTION / TECHNIQUE: The patient was seen and identified in the preoperative area. Risks, benefits, complications including but not limited to infections ,bleeding ,allergic reaction to the medications ,nerve damage and not complete pain releife , and alternatives were discussed with the patient. The patient agreed to proceed with the procedure and signed the consent. , and vital signs were stable. Patient was taken to the OR and time out was completed. The patient was placed in the prone position on procedure table and a pillow was placed under the abdomen to reduce lumbar lordosis. The lumbosacral area was prepped and draped in the usual sterile fashion.ere closely monitored during the procedure.. Vital signs was monitered during the entire procedure. Using anterior-posterior fluoroscopy, the L5-S1 interlaminar space was identified and the skin over this site was marked and then infiltrated with 1% lidocaine subcutaneously. Subsequently, a 20-gauge Tuohy epidural needle was inserted and advanced toward the epidural space using the ``Loss of resistance technique and guided by AP and lateral fluoroscopy. The correct needle position in the epidural space was verified with the injection of 2 mL of the water soluble contrast dye Isovue 200 contrast and observing an excellent epidurogram with the epidural spread of the dye, after negative aspiration for blood and CSF and in the absence of paresthesias. Again after negative aspiration, a 6 ml mixture containing 40 mg of Depo-medrol , and 2 ml of preservative free Normal Saline, and 2 ml of preservative free lidocaine 1% solution was injected and a washout of epidurogram was seen. Needle was withdrawn intact, skin was cleansed, and bandages were applied. COMPLICATIONS: None note = I attempted to perform the epidural steroid injection at L4 5 level ,but I was not able to identify the epidural space at that level, for this reason I performed the procedure at L5-S1.. DISPOSITION / PLANS: The patient was placed in a supine position and transferred to the recovery area in a stable condition for observation. There was no evidence of lower extremity motor or sensory deficit after the procedure. Patient was discharged from the recovery room after meeting discharge criteria. Home discharge instructions were given to the patient by the staff. The patient was reexamined prior to discharge. The patient will schedule a follow up in the clinic in 2-4 weeks.
--- NOTE | 2020-10-08 10:39 | FL ---
EXAMINATION TYPE: FL guided pain mgmt statistic DATE OF EXAM: 10/08/2020 CLINICAL HISTORY: Low back pain. TECHNIQUE: Fluoroscopy. COMPARISON: None. FINDINGS: Fluoroscopic guidance was provided during pain relief procedure performed by Dr. Yi . A total of 4 seconds of fluoroscopic time was utilized during the procedure and 1 spot images are acquired. Single image acquired shows needle localization at L4-L5 level with contrast injection. IMPRESSION: As Above.
== END 2020-10-08 08:47 | disposition home or self-care (01) ==
LOC: ORPAIN 06:41
PROVIDERS: ATTEND Specialist
DX: M51.16 Intervertebral disc disorders with radiculopathy, lumbar region (principal); M47.26 Other spondylosis with radiculopathy, lumbar region; E11.9 Type 2 diabetes mellitus without complications; Z88.5 Allergy status to narcotic agent
CPT/HCPCS: 62323; J1030; Q9966

== ENCOUNTER → 2020-10-17 | Outpatient (CLI) | payer MEDICARE, OTHER ==
--- NOTE | 2020-10-17 16:50 | P.PN ---
Subjective Progress Note Date: 10/17/20 Principal diagnosis: right breast cancer stage II stage II right breast cancer Vanesa is a 69 year old white female seen in consultation for Dr. Cahvez on 09-08-19, who presented for breast evaluation secondary to feeling a lump in her right breast. She stated it had been there for several months. It is becoming painful. She believed she was able to feel more than one lump. Radiographic evaluation was performed and on mammogram and a 2.1 x 1.7 cm lesion was noted in the right breast in the upper outer quadrant area. This was confirmed by ultrasound which revealed the lesion to be approximately 2.1 cm in size. The other 2 areas that the patient states that she can feel something and were not seen radiographically either on mammogram or ultrasound. The patient did have an enlarged lymph node noted radiographically both on mammogram and ultrasound in the right axilla. She does not feel anything of concern in the left breast. An ultrasound core biopsy was performed and 3420. The lesion in the left breast at 10:00 was a grade 2 infiltrating ductal adenocarcinoma. The lesion additional in the 10 o'clock position also was infiltrating ductal carcinoma. She had a right axillary node biopsy which also revealed moderately differentiated grade 2 infiltrating carcinoma associated with foci of residual lymph node parenchyma. The lesion is ER positive NM negative and HER-2 negative. It is a grade 2 lesion. The patient was seen in consultation with medical oncology. She would not accept any treatment leading to her loss. An echo tape TX study was recommended. If she is high risk neoadjuvant therapy was recommended and was up to the patient except 39. If she is low risk consider proceeding with surgery and adjuvant endocrine therapy versus neoadjuvant endocrine therapy. The patient's case was delayed secondary to the herman virus and the operating room's being shutdown. During that time interval the patient fractured her left ankle. It was a tri-malleolar fracture which required surgical intervention. She has been given clearance for surgery from orthopedic surgery. It was necessary that she have surgery for this. She underwent a lumpectomy and axillary node dissection on . Her pathology revealed 3 elevated axillary nodes positive for metastases. Additionally she was noted to have a positive margin anteriorly and medially. She had reexcision of the margin performed on 8419. Her pathology did not reveal any residual cancer. Skin of the breast which would be anterior was negative for any residual recurrent adenocarcinoma as well. The patient declined chemotherapy. She is on Femara. The patient also declined radiation therapy. She is complaining of pain in her breast at this time. She declined chemotherapy because she did not want to lose her hair. I discussed her case today with Dr. Hensley from psychiatry as well as with Dr. Atwood. Dr. Atwood was going to call in additional prescription for Femara. Her last bilateral mammogram was August 2019, this is within the right breast cancer was diagnosed. She is complaining of some discomfort in the right chest wall at this time. Bone scan was performed and [address]. No suspicious scintigraphic increased uptake to suggest metastatic disease. A computed tomography scan was performed of the abdomen and pelvis 09-12-20 overall nonobstructive bowel gas pattern [id number] diffuse colonic fecal stasis. No greater than 1 cm abdominal or pelvic lymph nodes. Liver no significant abnormality appreciated. [address] was performed this revealed no significant abnormality. No evidence of thoracic metastatic disease. Family History: mother: breast cancer 70 Patient with a history of MALT lymphoma in 2011 patient breast cancer at 69 Hormonal History: menarche: 12 , breast fed no, age at first: 16 menopause: 48 BCP: no hormones: no Surgical History: 1. Coronary stents, 2 years (takes aspirin and plavix) Medical History: 1. two MD 2. DM 3. anxiety/depression Social History: smoke: 1/PPD, for 50 years alcohol: none drugs; negative - Constitutional Constitutional: Reports night sweats - EENT Eyes: bilateral blurred vision, denies pain Ears: bilateral: decreased hearing, deny: tinnitus Ears, nose, mouth and throat: Reports headache, Denies sore throat - Breasts Breasts: bilateral: as per HPI - Cardiovascular Comment: two MD - Respiratory Comment: smoker Respiratory: Reports cough - Gastrointestinal Gastrointestinal: Denies abdominal pain, Denies diarrhea, Denies nausea, Denies vomiting - Genitourinary (Female) Comment: UTI Genitourinary: Denies dysuria, Denies hematuria - Menstruation Menstruation: Reports postmenopausal - Musculoskeletal Comment: arthritis - Integumentary Integumentary: Reports pruritus - Neurological Neurological: Denies numbness, Denies weakness - Psychiatric Psychiatric: Reports anxiety, Reports depression - Endocrine Comment: diabetes - Hematologic/Lymphatic Comment: Aspirin and Plavix - Allergic/Immunologic Allergic/Immunologic: Reports as per HPI Objective - Vital Signs Vital signs: Vital Signs Temp 97.9 F 10/17/20 15:47 Pulse 63 10/17/20 15:47 Resp 18 10/17/20 15:47 BP 144/83 10/17/20 15:47 Pulse Ox 99 10/17/20 15:47 Intake & Output 10/16/20 10/17/20 10/17/20 18:59 06:59 18:59 Weight 63.049 kg - Exam BMI 25.8 - Constitutional General appearance: Present: average body habitus - EENT Eyes: Present: EOMI ENT: Present: hearing grossly normal - Neck Neck: Present: normal ROM - Respiratory Respiratory: bilateral: CTA - Cardiovascular Rhythm: regular Heart sounds: normal: S1, S2 - Integumentary Integumentary: Present: normal turgor - Musculoskeletal Musculoskeletal: Present: gait normal - Psychiatric Psychiatric: Present: A&O x's 3, appropriate affect - Additional findings Additional findings: Breast exam: Palpation: Right breast well-healed scar from prior surgery, multiple positional exam no discrete dominant masses or nodules of concern Right axilla: No adenopathy of concern Left breast: Multi-positional exam fibrocystic changes no dominant masses or nodules of concern Left axilla: No adenopathy of concern Assessment and Plan Assessment: Impression/plan: 1. Status post right breast lumpectomy and axillary node dissection, patient no evidence of recurrent cancer at this time 2. Recent CT chest abdomen and pelvis as well as bone scan did not reveal evidence of any metastatic disease 3. Patient on Femara she is agreed to continue this I discussed this personally with Dr. Hensley and Dr. Atwood and this is being called in for her 4. Patient is due for left breast mammogram she has declined right breast mammogram but will have an ultrasound of the side performed 5. We'll see patient in follow-up after the radiographic studies of the breast are performed 6. Patient complains of discomfort in the right breast/right posterior chest wall, as appears to be musculoskeletal 7. continue femorra CC: Dr. Mark Chavez, Dr. Hensley, Dr. Atwood DX: 1. right breast cancer 2. back pain 3. patient declined radiation or chemotherapy 4. patient on femora to continue Data reviewed: bone scan CT chest/abd/pelvis case discussed with Dr. Hensley, and Angelic Plan: radiographic evaluation of breasts and follow up after completed
== END | disposition home or self-care (01) ==
DX: Z53.9 Procedure and treatment not carried out, unspecified reason (principal)

== ENCOUNTER → 2021-01-20 | Outpatient (CLI) | payer MEDICARE, OTHER ==
[2021-01-20 12:20] VITALS: BP 122/77; PULSE 57; RESP 18; TEMP 98.1
--- NOTE | 2021-01-20 12:33 | P.PN ---
Subjective Progress Note Date: 01/20/21 This is a follow-up visit for this 70 years old female with a chronic history of severe low back pain, she is diagnosed with lumbar degenerative disc disease and lumbar spondylosis with lumbar facet arthropathy, previously we have done lumbar epidural steroid injection x2 , she reported that she had short-term benefit after each injection, she continued to have severe low back pain with radiation to the buttock and to the groin area bilaterally, the pain is constant and increases with any activity interfere with her ability to walk, and interfere with her ability to do activities of daily livings, denies any motor or sensory deficit she denies any fever or night sweats Objective - Vital Signs Vital signs: Vital Signs Temp 98.1 F 01/20/21 12:15 Pulse 57 L 01/20/21 12:15 Resp 18 01/20/21 12:15 BP 122/77 01/20/21 12:15 Pulse Ox 97 01/20/21 12:15 Intake & Output 01/19/21 01/20/21 01/20/21 18:59 06:59 18:59 Weight 59.24 kg - Exam Physical Examinations : -Constitutiona : Cooperative , not in acute distress . -HEENT : nech : supple , no Lymphadenopathy , normal thyroid size . : eyes : no ptosis , no icterus, no photophobia . - neurologic : Cranial nerve II to XII intact , no focal neurological deffecit . -psychatric : alert , oriented X 3 , appropriate affect , intact judgment and insight . -Lymphatic : no Lymphadenopathy . - musculoskeltal : Lumber spine moter stegnth lower extremities ,thigh and legs 5/5 Right side , 5/5 Left side deep tendon reflexes : normal Knee Jerk , normal ankle Jerk lumber facet Loading Test =positive Right , positive Left Range of motion of the lumbar spine Flexion 30 degrees, extension 10 degrees strait leg raising test = negative bilaterally Fabere test= negative bilaterally . Sever tenderness over the Sacroiliac joint on the Right , and Left sides Gaenslen test= positive right ,and positive left . Seated flexion test= positive right ,and positive Left . Distraction test= positive bilaterally MRI of the lumbar spine multilevel lumbar degenerative disc disease multilevel lumbar facet arthropathy Assessment and Plan Plan: Assessment and plan= chronic low back pain secondary to lumbar degenerative disc disease , lumbar spondylosis with lumbar facet arthropathy . Bilateral sacroiliitis Patient denies any side effects of the current pain medication and the current treatment/medication helping the patient to do activity of daily living , Diagnoses, prognosis, treatment options, including but not limited to physical therapy, medication management, interventional therapies, and surgery, were discussed with the patient All the questions answered The narcotic consent was signed and patient agreed and understood the side effects and complications of opioid treatment. Patient signed the narcotic agreement, and was orally counseled, not to overuse, not to abuse, not to Divert , not tp sell pain medication, and to take it as prescribed only, Patient was counseled not to drive or operate heavy equipment while using narcotic medication, and advised not to use alcohol or any Illicit drugs while using the narcotis. understanding that lack of compliance with any of the above instructions, will likely to cause discharge from, the pain service, not to renew his narcotic prescriptions [facility] Reviwed and it was apropriate . Medication managements= patient will be given prescription for [place] 5/325 one tablet by mouth every 12 hours and 60 with 1 refill . Interventions= patient could benefit from bilateral sacroiliac joint steroid injections x1 then will reevaluate if she benefits from the injection we can repeat ,if she did not benefit then we have to consider doing diagnostic medial branch block lumbar area Time with Patient: Less than 30
== END ==
LOC: PNWHC3 11:48
PROVIDERS: ATTEND Specialist
DX: M51.36 Other intervertebral disc degeneration, lumbar region (principal); M47.816 Spondylosis without myelopathy or radiculopathy, lumbar region; M46.1 Sacroiliitis, not elsewhere classified; G89.29 Other chronic pain; Z88.5 Allergy status to narcotic agent; Z91.040 Latex allergy status; F17.200 Nicotine dependence, unspecified, uncomplicated
CPT/HCPCS: 99211

== ENCOUNTER 2021-02-04 22:33 | Inpatient (IN) | payer MEDICARE, OTHER ==
[2021-02-04 22:40] LABS: Glucose,Whole Blood 71 mg/dL (75-99)
[2021-02-04] MEDS ORDERED: SODIUM CHLORIDE 0.9% 1,000 ML IV STA (22:43)
[2021-02-04 23:03] LABS: Basophils # (A) 0.1 k/uL (0-0.2); Basophils % (A) 1 %; Eosinophils # (A) 0.1 k/uL (0-0.7); Eosinophils % (A) 1 %; HCT 39.8 % (34.0-46.0); HGB 14.1 gm/dL (11.4-16.0); Lymphocytes # (A) 1.5 k/uL (1.0-4.8); Lymphocytes % (A) 18 %; MCH 34.3 pg (25.0-35.0); MCHC 35.4 g/dL (31.0-37.0); MCV 96.9 fL (80.0-100.0); Mean Platelet Volume 6.9; Monocytes # (A) 0.5 k/uL (0-1.0); Monocytes % (A) 5 %; Neutrophils # (A) 6.4 k/uL (1.3-7.7); Neutrophils % (A) 73 %; Platelet Count 282 k/uL (150-450); RBC 4.11 m/uL (3.80-5.40); RDW 12.8 % (11.5-15.5); WBC 8.8 k/uL (3.8-10.6)
[2021-02-04] MEDS ORDERED: LORazepam 2 MG/ML INJ IV STA (23:06)
[2021-02-04 23:13] LABS: Albumin 4.3 g/dL (3.5-5.0); Calcium 9.9 mg/dL (8.4-10.2); Magnesium 2.2 mg/dL (1.6-2.3); Phosphorus 2.9 mg/dL (2.5-4.5); Potassium 4.1 mmol/L (3.5-5.1); Total Bilirubin 0.1 mg/dL (0.2-1.3); Total Protein 6.6 g/dL (6.3-8.2)
--- NOTE | 2021-02-04 23:20 | ED ---
Weakness HPI - General Chief complaint: Recheck/Abnormal Lab/Rx Stated complaint: diabetic issue Time Seen by Provider: 02/04/21 22:35 Source: patient, EMS, RN notes reviewed, old records reviewed Mode of arrival: EMS Limitations: no limitations - History of Present Illness Initial comments: This is a 70-year-old female presented by EMS for evaluation regards to feelings of dizziness anxiety. Patient states she's had a few days of issues with her blood sugar unsure of its been Hi-Lo she is no that she hasn't been feeling well. Symptoms for 2 days, significant stress and anxiety, patient is very emotional during history taking, she does have tears because of recent stress. Patient states she's been taking a lot of water sisters who have recently nothing of been minimal but she just been more concerned about than normal. She also concerned about her dogs take after [id number] lady. Patient remains emotional, no chest pain. No headache or shortness of breath no abdominal pain. No recent illness no fevers no nausea vomiting or diarrhea. Patient has been taking her medications as prescribed and feels like she is eating drinking appropriately taking care of herself MD Complaint: generalized weakness, lack of energy -: days(s) (2) Location: generalized Severity: mild Severity scale (1-10): 2 Quality: tingling, numbness Consistency: intermittent Improves with: none Worsens with: none Context: recent illness, depression Associated Symptoms: loss of appetite, shortness of breath - Related Data Home Medications Medication Instructions Recorded Confirmed PARoxetine HCL [Paxil] 40 mg PO DAILY 06/24/16 01/20/21 Isosorbide Mononitrate ER [Imdur] 30 mg PO QA 09/02/17 01/20/21 carvediloL [Coreg] 3.125 mg PO AC-BID 09/02/17 01/20/21 Atorvastatin [Lipitor] 80 mg PO HS 11/29/19 01/20/21 Insulin Glargine,Hum.rec.anlog 5 unit SQ 11/29/19 01/20/21 [Lantus Solostar] Omeprazole 20 mg PO QAM 01/29/20 01/20/21 OXcarbazepine [Trileptal] 300 mg PO BID 02/19/20 01/20/21 Aspirin EC [Ecotrin Low Dose] 81 mg PO DAILY 09/12/20 01/20/21 Previous Rx's Medication Instructions Recorded ondansetron HCL [Zofran] 8 mg PO Q12H PRN #30 tab 12/02/19 Letrozole [Femara] 2.5 mg PO DAILY 30 Days #30 tab 09/18/20 Sennosides [Senokot] 8.6 mg PO DAILY 30 Days #30 tab 09/18/20 busPIRone HCl [Buspar] 15 mg PO TID 30 Days #90 tab 09/18/20 clonazePAM [KlonoPIN] 1 mg PO TID #12 tab 09/18/20 traZODone HCL [Desyrel] 150 mg PO HS #30 tab 09/18/20 Allergies Allergy/AdvReac Type Severity Reaction Status Date / Time codeine AdvReac Nausea & Verified 10/17/20 15:44 Vomiting Latex, Natural Rubber AdvReac Rash/Hives/ Verified 10/17/20 15:44 itching Review of Systems ROS Statement: Those systems with pertinent positive or pertinent negative responses have been documented in the HPI. ROS Other: All systems not noted in ROS Statement are negative. Past Medical History Past Medical History: Coronary Artery Disease (CAD), Diabetes Mellitus, GERD/Reflux, Hyperlipidemia, Myocardial Infarction ([place]) Additional Past Medical History / Comment(s): Dx rt breast CA December 2019-painful no or chemo, fx ankle November 2019-has boot (states boot cannot be removed)on rt ankle-uses walker and WBAT, hx7-16-15 pancreatitis. other MIGRAINES, chronic back pain, gout Last Myocardial Infarction Date:: unk History of Any Multi-Drug Resistant Organisms: None Reported Past Surgical History: Breast Surgery, Heart Catheterization With Stent, Orthopedic Surgery Additional Past Surgical History / Comment(s): ORIF rt ankle -2019, EGD/COLONOSCOPY, bone marrow bx-neg, TOTAL OF 3 CARDIAC STENTS, breast bx; right breast lumpectomy w/AND 01/30/20; Past Anesthesia/Blood Transfusion Reactions: No Reported Reaction Additional Past Anesthesia/Blood Transfusion Reaction / Comment(s): clausterphobia Date of Last Stent Placement:: UNK Past Psychological History: Anxiety, Bipolar, Depression Smoking Status: Current every day smoker Past Alcohol Use History: None Reported Past Drug Use History: None Reported - Past Family History Son(s) Family Medical History: Cancer Father Family Medical History: Diabetes Mellitus, Myocardial Infarction ([place]) Mother Family Medical History: Cancer, Myocardial Infarction ([place]) General Exam Limitations: no limitations General appearance: alert, in no apparent distress, anxious Head exam: Present: atraumatic, normocephalic, normal inspection Eye exam: Present: normal appearance, PERRL, EOMI. Absent: scleral icterus, conjunctival injection, periorbital swelling ENT exam: Present: normal exam, mucous membranes moist Neck exam: Present: normal inspection. Absent: tenderness, meningismus, lymphadenopathy Respiratory exam: Present: normal lung sounds bilaterally. Absent: respiratory distress, wheezes, rales, rhonchi, stridor Cardiovascular Exam: Present: regular rate, normal rhythm, normal heart sounds. Absent: systolic murmur, diastolic murmur, rubs, gallop, clicks GI/Abdominal exam: Present: soft, normal bowel sounds. Absent: distended, tenderness, guarding, rebound, rigid Extremities exam: Present: normal inspection, full ROM, normal capillary refill. Absent: tenderness, pedal edema, joint swelling, calf tenderness Back exam: Present: normal inspection Neurological exam: Present: alert, oriented X3, CN II-XII intact Psychiatric exam: Present: normal affect, normal mood Skin exam: Present: warm, dry, intact, normal color. Absent: rash Course Vital Signs 02/04/21 22:34 Temperature 98.3 F Pulse Rate 81 Respiratory 16 Rate Blood Pressure 124/75 O2 Sat by Pulse 98 Oximetry - Reevaluation(s) Reevaluation #1: 02/05/21 00:19 Medical record is reviewed Reevaluation #2: 02/05/21 00:19 Patient is without chest pain or shortness of breath Reevaluation #3: 02/05/21 00:19 Patient is remains without chest pain throughout ER stay Reevaluation #4: 02/05/21 00:19 Patient informed of results and questions have been answered - Consultations Consultation #1: Spoke with [facility] related to admit this patient EKG Findings - EKG Comments: EKG Findings:: EKG shows sinus rhythm 74 FL 152 QRS 76 QTC 490 Medical Decision Making - Medical Decision Making 28 female DF for evaluation. Patient Dese for evaluation regards to not feeling well for the last 2 days. Patient does have elevated troponin, EKG is negative 2 for STEMI. Patient will be admitted for non-STEMI for cardiac evaluation, anticoagulation - Lab Data Result diagrams: 02/04/21 22:53 02/04/21 22:53 Lab Results 02/04/21 02/04/21 02/04/21 Range/Units 22:37 22:53 22:53 WBC 8.8 (3.8-10.6) k/uL RBC 4.11 (3.80-5.40) m/uL Hgb 14.1 (11.4-16.0) gm/dL Hct 39.8 (34.0-46.0) % MCV 96.9 (80.0-100.0) fL MCH 34.3 (25.0-35.0) pg MCHC 35.4 (31.0-37.0) g/dL RDW 12.8 (11.5-15.5) % Plt Count 282 (150-450) k/uL MPV 6.9 Neutrophils % 73 % Lymphocytes % 18 % Monocytes % 5 % Eosinophils % 1 % Basophils % 1 % Neutrophils # 6.4 (1.3-7.7) k/uL Lymphocytes # 1.5 (1.0-4.8) k/uL Monocytes # 0.5 (0-1.0) k/uL Eosinophils # 0.1 (0-0.7) k/uL Basophils # 0.1 (0-0.2) k/uL PT 9.8 (9.0-12.0) sec INR 0.9 (<1.2) APTT 20.9 L (22.0-30.0) sec Sodium (137-145) mmol/L Potassium (3.5-5.1) mmol/L Chloride (98-107) mmol/L Carbon Dioxide (22-30) mmol/L Anion Gap mmol/L BUN (7-17) mg/dL Creatinine (0.52-1.04) mg/dL Est GFR (CKD-EPI)AfAm (>60 ml/min/1.73 sqM) Est GFR (CKD-EPI)NonAf (>60 ml/min/1.73 sqM) Glucose (74-99) mg/dL POC Glucose (mg/dL) 71 L (75-99) mg/dL POC Glu Cellular Biologist Apurva Moncada Plasma Lactic Acid Lino (0.7-2.0) mmol/L Calcium (8.4-10.2) mg/dL Phosphorus (2.5-4.5) mg/dL Magnesium (1.6-2.3) mg/dL Total Bilirubin (0.2-1.3) mg/dL AST (14-36) U/L ALT (4-34) U/L Alkaline Phosphatase (38-126) U/L Creatine Kinase (30-135) U/L Troponin I (0.000-0.034) ng/mL Total Protein (6.3-8.2) g/dL Albumin (3.5-5.0) g/dL TSH (0.465-4.680) mIU/L 02/04/21 02/04/21 02/04/21 Range/Units 22:53 22:53 22:53 WBC (3.8-10.6) k/uL RBC (3.80-5.40) m/uL Hgb (11.4-16.0) gm/dL Hct (34.0-46.0) % MCV (80.0-100.0) fL MCH (25.0-35.0) pg MCHC (31.0-37.0) g/dL RDW (11.5-15.5) % Plt Count (150-450) k/uL MPV Neutrophils % % Lymphocytes % % Monocytes % % Eosinophils % % Basophils % % Neutrophils # (1.3-7.7) k/uL Lymphocytes # (1.0-4.8) k/uL Monocytes # (0-1.0) k/uL Eosinophils # (0-0.7) k/uL Basophils # (0-0.2) k/uL PT (9.0-12.0) sec INR (<1.2) APTT (22.0-30.0) sec Sodium 135 L (137-145) mmol/L Potassium 4.1 (3.5-5.1) mmol/L Chloride 104 (98-107) mmol/L Carbon Dioxide 21 L (22-30) mmol/L Anion Gap 10 mmol/L BUN 19 H (7-17) mg/dL Creatinine 0.80 (0.52-1.04) mg/dL Est GFR (CKD-EPI)AfAm 85 (>60 ml/min/1.73 sqM) Est GFR (CKD-EPI)NonAf 74 (>60 ml/min/1.73 sqM) Glucose 68 L (74-99) mg/dL POC Glucose (mg/dL) (75-99) mg/dL POC Glu Cellular Biologist ID Plasma Lactic Acid Lino 1.9 (0.7-2.0) mmol/L Calcium 9.9 (8.4-10.2) mg/dL Phosphorus 2.9 (2.5-4.5) mg/dL Magnesium 2.2 (1.6-2.3) mg/dL Total Bilirubin 0.1 L (0.2-1.3) mg/dL AST 32 (14-36) U/L ALT 23 (4-34) U/L Alkaline Phosphatase 83 (38-126) U/L Creatine Kinase 61 (30-135) U/L Troponin I 0.147 H* (0.000-0.034) ng/mL Total Protein 6.6 (6.3-8.2) g/dL Albumin 4.3 (3.5-5.0) g/dL TSH 0.688 (0.465-4.680) mIU/L - Radiology Data Radiology results: report reviewed (Chest x-rays negative for acute disease), image reviewed Critical Care Time Critical Care Time: Yes Total Critical Care Time: 31 Disposition Clinical Impression: NSTEMI (non-ST elevated myocardial infarction), Weakness Disposition: ADMITTED IP TO THIS [facility] Condition: Fair Is patient prescribed a controlled substance at d/c from ED?: No Referrals: Nancy Chavez MD [Primary Care Provider] - 1-2 days
--- NOTE | 2021-02-04 23:21 | XR ---
EXAMINATION TYPE: XR chest 2V DATE OF EXAM: 02/04/2021 COMPARISON: 09/15/2020 HISTORY: Weakness TECHNIQUE: FINDINGS: Heart and mediastinum are within normal limits. Lungs are clear of infiltrate. There is no pleural effusion. There are chest leads. Bony thorax is intact. IMPRESSION: No active cardiomegaly disease. There is clearing of the pulmonary edema compared to old exam.
[2021-02-04 23:48] LABS: INR 0.9 (<1.2); Prothrombin Time 9.8 sec (9.0-12.0)
[2021-02-04 23:57] LABS: Partial Thromboplastin Time 20.9 sec (22.0-30.0)
[2021-02-05] MEDS ORDERED: ASPIRIN 81 MG PO STA (00:16)
[2021-02-05] MEDS ORDERED: NITROGLYCERIN SL TABS 0.4 MG TAB SUBLINGUAL PRN ×2 (00:16→09:38)
[2021-02-05] MEDS ORDERED: HEPARIN SODIUM 1,000 UN/ML (10ML VL) IV ONE (00:16)
[2021-02-05] MEDS ORDERED: MORPHINE SULFATE 4 MG/ML SYRINGE IV PRN (00:16)
[2021-02-05] MEDS ORDERED: SODIUM CHLORIDE 0.9% 1,000 ML IV SCH (00:30)
[2021-02-05] MEDS ORDERED: DEXTROSE 50% SYRINGE 50 ML IVP STA (01:21)
[2021-02-05 01:22] LABS: Glucose,Whole Blood 35 mg/dL (75-99)
[2021-02-05] MEDS ORDERED: DEXTROSE 5%-0.45% NACL 1,000 ML IV SCH (01:30)
[2021-02-05] MEDS: HEPARIN SOD,PORK IN 0.45% NACL 25,000 UNIT in 0.45% NACL 1 250ML.BAG IV SCH (01:31)
[2021-02-05 01:38] LABS: Glucose,Whole Blood 196 mg/dL (75-99)
--- NOTE | 2021-02-05 01:41 | ED ---
Medical Decision Making - Medical Decision Making Patient will waiting for admission the emergency room became significantly diaphoretic, she without complaint no chest pain but that time her blood sugar was checked and found to be in the 30s, do the patient's labile blood sugar she'll be placed on a D5 infusion, EKG will be rechecked - Lab Data Result diagrams: 02/04/21 22:53 02/04/21 22:53 Lab Results 02/04/21 02/04/21 02/04/21 Range/Units 22:37 22:53 22:53 WBC 8.8 (3.8-10.6) k/uL RBC 4.11 (3.80-5.40) m/uL Hgb 14.1 (11.4-16.0) gm/dL Hct 39.8 (34.0-46.0) % MCV 96.9 (80.0-100.0) fL MCH 34.3 (25.0-35.0) pg MCHC 35.4 (31.0-37.0) g/dL RDW 12.8 (11.5-15.5) % Plt Count 282 (150-450) k/uL MPV 6.9 Neutrophils % 73 % Lymphocytes % 18 % Monocytes % 5 % Eosinophils % 1 % Basophils % 1 % Neutrophils # 6.4 (1.3-7.7) k/uL Lymphocytes # 1.5 (1.0-4.8) k/uL Monocytes # 0.5 (0-1.0) k/uL Eosinophils # 0.1 (0-0.7) k/uL Basophils # 0.1 (0-0.2) k/uL PT 9.8 (9.0-12.0) sec INR 0.9 (<1.2) APTT 20.9 L (22.0-30.0) sec Sodium (137-145) mmol/L Potassium (3.5-5.1) mmol/L Chloride (98-107) mmol/L Carbon Dioxide (22-30) mmol/L Anion Gap mmol/L BUN (7-17) mg/dL Creatinine (0.52-1.04) mg/dL Est GFR (CKD-EPI)AfAm (>60 ml/min/1.73 sqM) Est GFR (CKD-EPI)NonAf (>60 ml/min/1.73 sqM) Glucose (74-99) mg/dL POC Glucose (mg/dL) 71 L (75-99) mg/dL POC Glu Medical Record Coder ID Apurva Nguyen Plasma Lactic Acid Lino (0.7-2.0) mmol/L Calcium (8.4-10.2) mg/dL Phosphorus (2.5-4.5) mg/dL Magnesium (1.6-2.3) mg/dL Total Bilirubin (0.2-1.3) mg/dL AST (14-36) U/L ALT (4-34) U/L Alkaline Phosphatase (38-126) U/L Creatine Kinase (30-135) U/L Troponin I (0.000-0.034) ng/mL NT-Pro-B Natriuret Pep pg/mL Total Protein (6.3-8.2) g/dL Albumin (3.5-5.0) g/dL TSH (0.465-4.680) mIU/L 02/04/21 02/04/21 02/04/21 Range/Units 22:53 22:53 22:53 WBC (3.8-10.6) k/uL RBC (3.80-5.40) m/uL Hgb (11.4-16.0) gm/dL Hct (34.0-46.0) % MCV (80.0-100.0) fL MCH (25.0-35.0) pg MCHC (31.0-37.0) g/dL RDW (11.5-15.5) % Plt Count (150-450) k/uL MPV Neutrophils % % Lymphocytes % % Monocytes % % Eosinophils % % Basophils % % Neutrophils # (1.3-7.7) k/uL Lymphocytes # (1.0-4.8) k/uL Monocytes # (0-1.0) k/uL Eosinophils # (0-0.7) k/uL Basophils # (0-0.2) k/uL PT (9.0-12.0) sec INR (<1.2) APTT (22.0-30.0) sec Sodium 135 L (137-145) mmol/L Potassium 4.1 (3.5-5.1) mmol/L Chloride 104 (98-107) mmol/L Carbon Dioxide 21 L (22-30) mmol/L Anion Gap 10 mmol/L BUN 19 H (7-17) mg/dL Creatinine 0.80 (0.52-1.04) mg/dL Est GFR (CKD-EPI)AfAm 85 (>60 ml/min/1.73 sqM) Est GFR (CKD-EPI)NonAf 74 (>60 ml/min/1.73 sqM) Glucose 68 L (74-99) mg/dL POC Glucose (mg/dL) (75-99) mg/dL POC Glu Medical Record Coder ID Plasma Lactic Acid Lino 1.9 (0.7-2.0) mmol/L Calcium 9.9 (8.4-10.2) mg/dL Phosphorus 2.9 (2.5-4.5) mg/dL Magnesium 2.2 (1.6-2.3) mg/dL Total Bilirubin 0.1 L (0.2-1.3) mg/dL AST 32 (14-36) U/L ALT 23 (4-34) U/L Alkaline Phosphatase 83 (38-126) U/L Creatine Kinase 61 (30-135) U/L Troponin I 0.147 H* (0.000-0.034) ng/mL NT-Pro-B Natriuret Pep pg/mL Total Protein 6.6 (6.3-8.2) g/dL Albumin 4.3 (3.5-5.0) g/dL TSH 0.688 (0.465-4.680) mIU/L 02/04/21 Range/Units 22:53 WBC (3.8-10.6) k/uL RBC (3.80-5.40) m/uL Hgb (11.4-16.0) gm/dL Hct (34.0-46.0) % MCV (80.0-100.0) fL MCH (25.0-35.0) pg MCHC (31.0-37.0) g/dL RDW (11.5-15.5) % Plt Count (150-450) k/uL MPV Neutrophils % % Lymphocytes % % Monocytes % % Eosinophils % % Basophils % % Neutrophils # (1.3-7.7) k/uL Lymphocytes # (1.0-4.8) k/uL Monocytes # (0-1.0) k/uL Eosinophils # (0-0.7) k/uL Basophils # (0-0.2) k/uL PT (9.0-12.0) sec INR (<1.2) APTT (22.0-30.0) sec Sodium (137-145) mmol/L Potassium (3.5-5.1) mmol/L Chloride (98-107) mmol/L Carbon Dioxide (22-30) mmol/L Anion Gap mmol/L BUN (7-17) mg/dL Creatinine (0.52-1.04) mg/dL Est GFR (CKD-EPI)AfAm (>60 ml/min/1.73 sqM) Est GFR (CKD-EPI)NonAf (>60 ml/min/1.73 sqM) Glucose (74-99) mg/dL POC Glucose (mg/dL) (75-99) mg/dL POC Glu Medical Record Coder ID Plasma Lactic Acid Lino (0.7-2.0) mmol/L Calcium (8.4-10.2) mg/dL Phosphorus (2.5-4.5) mg/dL Magnesium (1.6-2.3) mg/dL Total Bilirubin (0.2-1.3) mg/dL AST (14-36) U/L ALT (4-34) U/L Alkaline Phosphatase (38-126) U/L Creatine Kinase (30-135) U/L Troponin I (0.000-0.034) ng/mL NT-Pro-B Natriuret Pep 5550 pg/mL Total Protein (6.3-8.2) g/dL Albumin (3.5-5.0) g/dL TSH (0.465-4.680) mIU/L - EKG Data -: EKG Interpreted by Me (EKG shows normal sinus rhythm 6728 QRS 86 QTc 486) Critical Care Time Critical Care Time: Yes Total Critical Care Time: 31 Disposition Clinical Impression: NSTEMI (non-ST elevated myocardial infarction), Weakness, Hypoglycemia Disposition: ADMITTED IP TO THIS [facility] Condition: Serious Is patient prescribed a controlled substance at d/c from ED?: No
[2021-02-05 02:44] LABS: Glucose,Whole Blood 170 mg/dL (75-99)
[2021-02-05 03:19] LABS: Appearance,Urine Clear (Clear); Bilirubin,Urine Negative (Negative); Blood,Urine Negative (Negative); Color,Urine Light Yellow; Glucose,Urine (UA) 1+ (Negative); Ketones,Urine Negative (Negative); Leukocyte Esterase,Urine Negative (Negative); Nitrite,Urine Negative (Negative); Protein,Urine Negative (Negative); Specific Gravity,Urine 1.009 (1.001-1.035); Urobilinogen,Urine <2.0 mg/dL (<2.0)
[2021-02-05 05:00] LABS: Glucose,Whole Blood 157 mg/dL (75-99)
[2021-02-05] MEDS ORDERED: ONDANSETRON 4 MG/2 ML VIAL IVP STA (05:09)
[2021-02-05] MEDS ORDERED: DEXTROSE 50% SYRINGE 50 ML IVP ONE ×4 (08:06→16:08)
[2021-02-05 08:10] LABS: Glucose,Whole Blood 41 mg/dL (75-99)
[2021-02-05 08:27] LABS: Glucose,Whole Blood 190 mg/dL (75-99)
[2021-02-05] MEDS: DEXTROSE 10% IN WATER 1,000 ML with SODIUM CHLORIDE 4MEQ/ML VIAL 153.8 MEQ IV SCH ×2 (09:13→21:04)
[2021-02-05] MEDS ORDERED: ALPRAZolam 0.25 MG TAB PO PRN (09:38)
[2021-02-05] MEDS ORDERED: SODIUM CHLORIDE 0.9% 1,000 ML in EMPTY BAG 1 BAG IV ONE (09:38)
[2021-02-05 09:39] LABS: Glucose,Whole Blood 53 mg/dL (75-99)
[2021-02-05 09:49] LABS: Glucose,Whole Blood 230 mg/dL (75-99)
[2021-02-05] MEDS: SPIRONOLACTONE 25 MG TAB PO SCH (10:41)
[2021-02-05] MEDS: lisinopriL 5 MG TAB PO SCH ×2 (10:41→20:29)
[2021-02-05] MEDS: PARoxetine 20 MG TAB PO SCH (10:42)
[2021-02-05] MEDS: OXcarbazepine 300 MG TAB PO SCH ×2 (10:42→20:29)
[2021-02-05] MEDS: LETROZOLE 2.5 MG TAB PO SCH (10:42)
--- NOTE | 2021-02-05 11:01 | ECHOF ---
Referral Reason:elevopon MEASUREMENTS -------- HEIGHT: 152.4 cm WEIGHT: 68.0 kg BP: 120/47 IVSd: 1.2 cm (0.6 - 1.1) LVIDd: 4.7 cm (3.9 - 5.3) LVPWd: 1.0 cm (0.6 - 1.1) IVSs: 1.3 cm LVIDs: 3.0 cm LVPWs: 1.7 cm LAESV Index (A-L): 27.48 ml/m Ao Diam: 3.1 cm (2.0 - 3.7) AV Cusp: 2.1 cm (1.5 - 2.6) MV EXCURSION: 18.742 mm (> 18.000) MV EF SLOPE: 56 mm/s (70 - 150) EPSS: 0.9 cm MV E Chance: 0.66 m/s MV DecT: 239 ms MV A Chance: 1.05 m/s MV E/A Ratio: 0.63 RAP: 5.00 mmHg RVSP: 11.59 mmHg FINDINGS -------- Sinus rhythm. This was a technically good study. The left ventricular size is normal. There is borderline concentric left ventricular hypertrophy. Overall left ventricular systolic function is low-normal with, an EF between 50 - 55 %. Inferior b neelam Hypokinesis The right ventricle is normal in size. Normal LA size by volume 22+/-6 ml/m2. The right atrial size is normal. The aortic valve is trileaflet, and appears structurally normal. No aortic stenosis or regurgitation. Mild mitral regurgitation is present. Mild tricuspid regurgitation present. Right ventricular systolic pressure is normal at < 35 mmHg. There is no pulmonic regurgitation present. There is no pericardial effusion. CONCLUSIONS -------- 1. The left ventricular size is normal. 2. There is borderline concentric left ventricular hypertrophy. 3. Overall left ventricular systolic function is low-normal with, an EF between 50 - 55 %. 4. Inferior basal Hypokinesis 5. The right ventricle is normal in size. 6. Normal LA size by volume 22+/-6 ml/m2. 7. The right atrial size is normal. 8. The aortic valve is trileaflet, and appears structurally normal. No aortic stenosis or regurgitati on. 9. Mild mitral regurgitation is present. 10. Mild tricuspid regurgitation present. 11. There is no pericardial effusion. 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
[2021-02-05 11:03] LABS: Glucose,Whole Blood 100 mg/dL (75-99)
[2021-02-05 12:08] LABS: Glucose,Whole Blood 63 mg/dL (75-99)
--- NOTE | 2021-02-05 12:10 | P.HPIM ---
History of Present Illness 70-year-old male came in with the complaints of diaphoresis dizziness and anxiety. Patient blood sugars were found to be extremely low because of which patient is excessively admitted. Patient has been losing weight because of her breast cancer and chemotherapy. Patient has been taking long-acting insulin although very low-dose patient has been on this dose for a while. Patient was initially on D5 and then was switched to D10 because of nonimprovement of her hypoglycemia patient lives by herself unsure whether patient is taking appropriate doses of her medications. Patient does have history of congestive heart failure with EF of around 20-25% had history of cardiac catheterization recently patient has mildly elevated troponins because of which cardiology will evaluate the patient. REVIEW OF SYSTEMS: CONSTITUTIONAL: No fever, no malaise, no fatigue. HEENT: No recent visual problems or hearing problems. Denied any sore throat. CARDIOVASCULAR: No chest pain, orthopnea, PND, no palpitations, no syncope. PULMONARY: No shortness of breath, no cough, no hemoptysis. GASTROINTESTINAL: No diarrhea, no nausea, no vomiting, no abdominal pain. NEUROLOGICAL: No headaches, no weakness, no numbness. HEMATOLOGICAL: Denies any bleeding or petechiae. GENITOURINARY: Denies any burning micturition, frequency, or urgency. MUSCULOSKELETAL/RHEUMATOLOGICAL: Denies any joint pain, swelling, or any muscle pain. ENDOCRINE: Denies any polyuria or polydipsia. The rest of the 14-point review of systems is negative. PHYSICAL EXAMINATION: GENERAL: The patient is alert and oriented x3, not in any acute distress. Well developed, well nourished. HEENT: Pupils are round and equally reacting to light. EOMI. No scleral icterus. No conjunctival pallor. Normocephalic, atraumatic. No pharyngeal erythema. No thyromegaly. CARDIOVASCULAR: S1 and S2 present. No murmurs, rubs, or gallops. PULMONARY: Chest is clear to auscultation, no wheezing or crackles. ABDOMEN: Soft, nontender, nondistended, normoactive bowel sounds. No palpable organomegaly. MUSCULOSKELETAL: No joint swelling or deformity. EXTREMITIES: No cyanosis, clubbing, or pedal edema. NEUROLOGICAL: Gross neurological examination did not reveal any focal deficits. SKIN: No rashes. Assessment and plan -Hypoglycemia: Can be related to unintentional overuse of long-acting insulin although patient has been losing weight may not require any insulin at all will obtain hemoglobin A1c patient will be continued on D10 but will cut down the dose to 50 mL/h and the need to watch for heart failure exacerbation -Congestiveheart failure chronic systolic dysfunction without any acute exacerbation at this time -Coronary artery disease with recent stenting in month of October continued Nicotine use, nicotine cessation counseling was provided -Type 2 diabetes mellitus with the hypoglycemia management as mentioned above -Hyperlipidemia -Gastroesophageal reflux disease DVT prophylaxis: Patient is presently on IV heparin Past Medical History Past Medical History: Coronary Artery Disease (CAD), Diabetes Mellitus, GERD/Reflux, Hyperlipidemia, Myocardial Infarction ([place]) Additional Past Medical History / Comment(s): Dx rt breast CA December 2019-takes chemo Po, radiation completed 1 month ago, fx ankle November 2019-has boot (states boot cannot be removed)on rt ankle-uses walker and WBAT, hx7-16-15 pancreatitis. other MIGRAINES, chronic back pain, gout Last Myocardial Infarction Date:: unk History of Any Multi-Drug Resistant Organisms: None Reported Past Surgical History: Breast Surgery, Heart Catheterization With Stent, Orthopedic Surgery Additional Past Surgical History / Comment(s): ORIF rt ankle , EGD/COLONOSCOPY, bone marrow bx-neg, TOTAL OF 3 CARDIAC STENTS, breast bx; right breast lumpectomy w/AND 01/30/20; Past Anesthesia/Blood Transfusion Reactions: No Reported Reaction Additional Past Anesthesia/Blood Transfusion Reaction / Comment(s): clausterphobia Date of Last Stent Placement:: UNK Past Psychological History: Anxiety, Bipolar Additional Psychological History / Comment(s): mood disorder Smoking Status: Current every day smoker Past Alcohol Use History: None Reported Additional Past Alcohol Use History / Comment(s): Started smoking in her teens; 2ppd Past Drug Use History: None Reported - Past Family History Son(s) Family Medical History: Cancer Father Family Medical History: Diabetes Mellitus, Myocardial Infarction ([place]) Mother Family Medical History: Cancer, Myocardial Infarction ([place]) Medications and Allergies Home Medications Medication Instructions Recorded Confirmed Type PARoxetine HCL [Paxil] 40 mg PO DAILY 06/24/16 02/05/21 History Isosorbide Mononitrate ER [Imdur] 30 mg PO QAM 09/02/17 02/05/21 History carvediloL [Coreg] 3.125 mg PO AC-BID 09/02/17 02/05/21 History Atorvastatin [Lipitor] 80 mg PO HS 11/29/19 02/05/21 History Insulin Glargine,Hum.rec.anlog 5 unit SQ HS 11/29/19 02/05/21 History [Lantus Solostar] Omeprazole 20 mg PO QAM 01/29/20 02/05/21 History OXcarbazepine [Trileptal] 300 mg PO BID 02/19/20 02/05/21 History Aspirin EC [Ecotrin Low Dose] 81 mg PO DAILY 09/12/20 02/05/21 History Letrozole [Femara] 2.5 mg PO DAILY 30 Days #30 tab 09/18/20 02/05/21 Rx clonazePAM [KlonoPIN] 1 mg PO BID PRN 02/05/21 02/05/21 History traZODone HCL [Desyrel] 100 mg PO HS 02/05/21 02/05/21 History Allergies Allergy/AdvReac Type Severity Reaction Status Date / Time codeine AdvReac Nausea & Verified 02/05/21 06:52 Vomiting Latex, Natural Rubber AdvReac Rash/Hives/ Verified 02/05/21 06:52 itching Physical Exam Vitals: Vital Signs Temp Pulse Pulse Resp BP BP Pulse Ox 02/05/21 12:00 98.0 F 80 16 140/83 100 02/05/21 08:18 98.1 F 83 18 144/65 99 02/05/21 08:00 98.1 F 83 18 144/65 99 02/05/21 07:27 98.8 F 83 16 120/47 96 02/05/21 04:59 98.8 F 83 16 120/47 96 02/04/21 22:34 98.3 F 81 16 124/75 98 Intake and Output 02/04/21 02/05/21 02/05/21 22:59 06:59 14:59 Other: Voiding Method Toilet # Voids 1 # Bowel Movements 1 Weight 68.039 kg 68.039 kg Results CBC & Chem 7: 02/04/21 22:53 02/04/21 22:53 Labs: Abnormal Lab Results - Last 24 Hours (Table) 02/04/21 02/04/21 02/04/21 Range/Units 22:37 22:53 22:53 APTT 20.9 L (22.0-30.0) sec Sodium 135 L (137-145) mmol/L Carbon Dioxide 21 L (22-30) mmol/L BUN 19 H (7-17) mg/dL Glucose 68 L (74-99) mg/dL POC Glucose (mg/dL) 71 L (75-99) mg/dL Total Bilirubin 0.1 L (0.2-1.3) mg/dL Troponin I (0.000-0.034) ng/mL Urine Glucose (UA) (Negative) 02/04/21 02/05/21 02/05/21 Range/Units 22:53 01:20 01:21 APTT (22.0-30.0) sec Sodium (137-145) mmol/L Carbon Dioxide (22-30) mmol/L BUN (7-17) mg/dL Glucose (74-99) mg/dL POC Glucose (mg/dL) 35 L (75-99) mg/dL Total Bilirubin (0.2-1.3) mg/dL Troponin I 0.147 H* (0.000-0.034) ng/mL Urine Glucose (UA) 1+ H (Negative) 02/05/21 02/05/21 02/05/21 Range/Units 01:37 02:36 02:43 APTT (22.0-30.0) sec Sodium (137-145) mmol/L Carbon Dioxide (22-30) mmol/L BUN (7-17) mg/dL Glucose (74-99) mg/dL POC Glucose (mg/dL) 196 H 170 H (75-99) mg/dL Total Bilirubin (0.2-1.3) mg/dL Troponin I 0.106 H* (0.000-0.034) ng/mL Urine Glucose (UA) (Negative) 02/05/21 02/05/21 02/05/21 Range/Units 04:56 05:12 07:13 APTT 64.3 H (22.0-30.0) sec Sodium (137-145) mmol/L Carbon Dioxide (22-30) mmol/L BUN (7-17) mg/dL Glucose (74-99) mg/dL POC Glucose (mg/dL) 157 H (75-99) mg/dL Total Bilirubin (0.2-1.3) mg/dL Troponin I 0.096 H* (0.000-0.034) ng/mL Urine Glucose (UA) (Negative) 02/05/21 02/05/21 02/05/21 Range/Units 08:05 08:16 09:37 APTT (22.0-30.0) sec Sodium (137-145) mmol/L Carbon Dioxide (22-30) mmol/L BUN (7-17) mg/dL Glucose (74-99) mg/dL POC Glucose (mg/dL) 41 L 190 H 53 L (75-99) mg/dL Total Bilirubin (0.2-1.3) mg/dL Troponin I (0.000-0.034) ng/mL Urine Glucose (UA) (Negative) 02/05/21 02/05/21 02/05/21 Range/Units 09:48 10:51 12:07 APTT (22.0-30.0) sec Sodium (137-145) mmol/L Carbon Dioxide (22-30) mmol/L BUN (7-17) mg/dL Glucose (74-99) mg/dL POC Glucose (mg/dL) 230 H 100 H 63 L (75-99) mg/dL Total Bilirubin (0.2-1.3) mg/dL Troponin I (0.000-0.034) ng/mL Urine Glucose (UA) (Negative) Thrombosis Risk Factor Assmnt - Choose All That Apply Any of the Below Risk Factors Present?: Yes Each Factor Represents 1 point: Obesity (BMI >25) Other Risk Factors: Yes Each Risk Factor Represents 2 Points: Age 61-74 years Other congenital or acquired thrombophilia - If yes, enter type in comment: No Thrombosis Risk Factor Assessment Total Risk Factor Score: 3 Thrombosis Risk Factor Assessment Level: Moderate Risk
[2021-02-05 12:40] LABS: Glucose,Whole Blood 200 mg/dL (75-99)
[2021-02-05 13:10] LABS: Glucose,Whole Blood 173 mg/dL (75-99)
--- NOTE | 2021-02-05 13:10 | P.CRDCN ---
History of Present Illness History of present illness: HISTORY OF PRESENTING ILLNESS This is a pleasant 70-year-old female past medical history significant for coronary artery disease status post PCI circumflex in 2016, type 2 diabetes, hyperlipidemia, chronic nicotine dependence, carotid stenosis, history of ischemic cardiomyopathy. She follows in the office with Dr. Muro. We have been asked to see in consultation for elevated troponin. Patient presents to the emergency department with multiple complaints. She states that lately she's be en feeling tired, lightheadedness, dizziness, fatigued, blurry vision, nausea, decreased appetite. Denies emesis or diarrhea. She also has been feeling anxious. Yesterday she had increased diaphoresis and lightheadedness. She states she been taking her blood sugar at home but unable to read the readings blurry vision. She also has been having intermittent left-sided chest pain, it is nonradiating, nonexertional. She rates the pain about 6/10. She cannot really tell me any associated symptoms. No alleviating symptoms. It is aggravated by palpation. She is lying flat in bed, comfortably but she does endorse symptoms of orthopnea and PND. She denies history of stroke. She is a current every day smoker, she states she smokes 1-3 packs per day depending on the day. She denies alcohol or illicit drug use. DIAGNOSTICS EKG reveals sinus rhythm, heart rate 69, no significant ST-T wave abnormalities. Last Cardiac Catheterization 06/2016 revealed mild disease in the proximal LAD LAD 30-40% stenosis, which was unchanged compared to her cardiac cath in 07/2015, patent stent in circumflex, chronic occlusion of right coronary artery. Stable compared to cardiac cath 07/2015 and medical therapy was advised. 02/05/21: Echocardiogram revealed an EF of 50-55%, inferior basal hypokinesis, mild mitral regurgitation, mild tricuspid regurgitation 09/2020: Echocardiogram EF 20-25% basal segment petros only, moderate mitral regurgitation, tricuspid regurgitation Chest xray no active cardiopulmonary disease. Laboratory reviewed, troponin trend 0.14, 0.10, 0.09, CBC unremarkable, sodium 135, potassium 4.1, BUN 19, serum creatinine 0.80, magnesium 2.2, proBNP 5550, TSH within normal limits REVIEW OF SYSTEMS At the time of my exam: CONSTITUTIONAL: Denies fever or chills. CARDIOVASCULAR: Positive chest pain or shortness of breath, orthopnea Denies PND or palpitations. RESPIRATORY: Denies cough. GASTROINTESTINAL: +nausea, +decreased appetite. Denies diarrhea or vomiting. MUSCULOSKELETAL: Denies myalgias. NEUROLOGIC: + Lightheadedness positive dizziness positive blurry vision Denies n umbness, tingling, headache ENDOCRINE: + fatigue, Denies weight change, polydipsia or polyurina. GENITOURINARY: Denies burning, hematuria or urgency with micturation. HEMATOLOGIC: Denies history of anemia or bleeding. PHYSICAL EXAMINATION Blood pressure 140/83 heart rate 80 afebrile and maintaining oxygen saturation on room air CONSTITUTIONAL: No apparent distress. HEENT: Head is normocephalic. Pupils are equal, round. Sclerae anicteric. Mucous membranes of the mouth are moist. No JVD. No carotid bruit. CHEST EXAMINATION: Lungs are clear to auscultation. There is chest wall tenderness noted on palpation HEART EXAMINATION: Regular rate and rhythm. S1, S2 heard. No murmurs, gallops or rub. ABDOMEN: Soft, nontender. Positive bowel sounds. EXTREMITIES: 2+ peripheral pulses, no lower extremity edema and no calf tenderness. SKIN: intact NEUROLOGIC EXAMINATION: Patient is awake, alert and oriented x3. ASSESSMENT Chest pain Elevated troponin, concerning for ischemia Hypoglycemia History of ischemic cardiomyopathy, however, patient has had multiple echocardiograms with EF 20-25% most recent 09/2020- Echo today however, showed EF 50-55% Chronic nicotine dependence Type 2 Diabetes Hyperlipidemia History of hypertension History of carotid stenosis PLAN -Echocardiogram ordered and reviewed -We will plan for cardiac catheterization with Dr. Muro tomorrow 02/06/21, NPO at midnight -I have discussed the risks, benefits and alternative therapies for the above- mentioned procedure and for both sedation/analgesia as well as necessary blood product administration, if indicated, as they pertain to this patient. The patient has indicated understanding and acceptance of the risks and procedures discussed. Questions have been answered appropriately and he is agreeable to move forward with the above-stated procedure. -Start lisinopril 5mg BID and sprionolactone 25mg daily -Continue aspirin, statin, carvedilol, Imdur -Smoking cessation discussed and highly recommended. -Further recommendations based on clinical course Nurse Practitioner note has been reviewed, I agree with a documented findings and plan of care. Patient was seen and examined. Past Medical History Past Medical History: Coronary Artery Disease (CAD), Diabetes Mellitus, GERD/Reflux, Hyperlipidemia, Myocardial Infarction ([place]) Additional Past Medical History / Comment(s): Dx rt breast CA December 2019-takes chemo Po, radiation completed 1 month ago, fx ankle November 2019-has boot (states boot cannot be removed)on rt ankle-uses walker and WBAT, hx7-16-15 pancreatitis. other MIGRAINES, chronic back pain, gout Last Myocardial Infarction Date:: unk History of Any Multi-Drug Resistant Organisms: None Reported Past Surgical History: Breast Surgery, Heart Catheterization With Stent, Orthopedic Surgery Additional Past Surgical History / Comment(s): ORIF rt ankle -2019, EGD/COLONOSCOPY, bone marrow bx-neg, TOTAL OF 3 CARDIAC STENTS, breast bx; right breast lumpectomy w/AND 01/30/20; Past Anesthesia/Blood Transfusion Reactions: No Reported Reaction Additional Past Anesthesia/Blood Transfusion Reaction / Comment(s): clausterphobia Date of Last Stent Placement:: UNK Past Psychological History: Anxiety, Bipolar Additional Psychological History / Comment(s): mood disorder Smoking Status: Current every day smoker Past Alcohol Use History: None Reported Additional Past Alcohol Use History / Comment(s): Started smoking in her teens; 2ppd Past Drug Use History: None Reported - Past Family History Son(s) Family Medical History: Cancer Father Family Medical History: Diabetes Mellitus, Myocardial Infarction ([place]) Mother Family Medical History: Cancer, Myocardial Infarction ([place]) Medications and Allergies Home Medications Medication Instructions Recorded Confirmed Type PARoxetine HCL [Paxil] 40 mg PO DAILY 06/24/16 02/05/21 History Isosorbide Mononitrate ER [Imdur] 30 mg PO QAM 09/02/17 02/05/21 History carvediloL [Coreg] 3.125 mg PO AC-BID 09/02/17 02/05/21 History Atorvastatin [Lipitor] 80 mg PO HS 11/29/19 02/05/21 History Insulin Glargine,Hum.rec.anlog 5 unit SQ 11/29/19 02/05/21 History [Lantus Solostar] Omeprazole 20 mg PO QAM 01/29/20 02/05/21 History OXcarbazepine [Trileptal] 300 mg PO BID 02/19/20 02/05/21 History Aspirin EC [Ecotrin Low Dose] 81 mg PO DAILY 09/12/20 02/05/21 History Letrozole [Femara] 2.5 mg PO DAILY 30 Days #30 tab 09/18/20 02/05/21 Rx clonazePAM [KlonoPIN] 1 mg PO BID PRN 02/05/21 02/05/21 History traZODone HCL [Desyrel] 100 mg PO HS 02/05/21 02/05/21 History Allergies Allergy/AdvReac Type Severity Reaction Status Date / Time codeine AdvReac Nausea & Verified 02/05/21 06:52 Vomiting Latex, Natural Rubber AdvReac Rash/Hives/ Verified 02/05/21 06:52 itching Physical Exam Vitals: Vital Signs Temp Pulse Pulse Resp BP BP Pulse Ox 02/05/21 12:00 98.0 F 80 16 140/83 100 02/05/21 08:18 98.1 F 83 18 144/65 99 02/05/21 08:00 98.1 F 83 18 144/65 99 02/05/21 07:27 98.8 F 83 16 120/47 96 02/05/21 04:59 98.8 F 83 16 120/47 96 02/04/21 22:34 98.3 F 81 16 124/75 98 Intake and Output 02/04/21 02/05/21 02/05/21 22:59 06:59 14:59 Other: Voiding Method Toilet # Voids 1 # Bowel Movements 1 Weight 68.039 kg 68.039 kg Results 02/04/21 22:53 02/04/21 22:53 Cardiac Enzymes 02/04/21 02/04/21 02/05/21 Range/Units 22:53 22:53 02:36 AST 32 (14-36) U/L Troponin I 0.147 H* 0.106 H* (0.000-0.034) ng/mL 02/05/21 Range/Units 05:12 AST (14-36) U/L Troponin I 0.096 H* (0.000-0.034) ng/mL Coagulation 02/04/21 02/05/21 Range/Units 22:53 07:13 PT 9.8 (9.0-12.0) sec APTT 20.9 L 64.3 H (22.0-30.0) sec CBC 02/04/21 Range/Units 22:53 WBC 8.8 (3.8-10.6) k/uL RBC 4.11 (3.80-5.40) m/uL Hgb 14.1 (11.4-16.0) gm/dL Hct 39.8 (34.0-46.0) % Plt Count 282 (150-450) k/uL Comprehensive Metabolic Panel 02/04/21 Range/Units 22:53 Sodium 135 L (137-145) mmol/L Potassium 4.1 (3.5-5.1) mmol/L Chloride 104 (98-107) mmol/L Carbon Dioxide 21 L (22-30) mmol/L BUN 19 H (7-17) mg/dL Creatinine 0.80 (0.52-1.04) mg/dL Glucose 68 L (74-99) mg/dL Calcium 9.9 (8.4-10.2) mg/dL AST 32 (14-36) U/L ALT 23 (4-34) U/L Alkaline Phosphatase 83 (38-126) U/L Total Protein 6.6 (6.3-8.2) g/dL Albumin 4.3 (3.5-5.0) g/dL Current Medications Generic Name Dose Route Start Last Admin Trade Name Freq PRN Reason Stop Dose Admin Alprazolam 0.25 mg 02/05/21 09:38 02/05/21 10:48 Alprazolam 0.25 Mg Tab PO 0.25 mg Q6HR PRN Administration Mild Anxiety Alprazolam 0.5 mg 02/05/21 09:38 Alprazolam 0.5 Mg Tab PO Q6HR PRN Moderate Anxiety Aspirin 81 mg 02/06/21 09:00 Aspirin 81 Mg PO DAILY ADAN Aspirin 325 mg 02/06/21 06:00 Aspirin 325 Mg Tab PO 02/06/21 06:01 ONCE ONE Atorvastatin Calcium 80 mg 02/05/21 21:00 Atorvastatin 80 Mg Tab PO HS [facility] Atorvastatin Calcium 80 mg 02/06/21 06:00 Atorvastatin 80 Mg Tab PO 02/06/21 06:01 ONCE ONE Carvedilol 6.25 mg 02/05/21 17:30 Carvedilol 6.25 Mg Tab PO AC-BID [facility] Dronabinol 2.5 mg 02/05/21 17:30 Dronabinol 2.5 Mg Cap PO AC-BID ADAN Heparin Sodium/Sodium Chloride 250 mls @ 8.165 mls/hr 02/05/21 00:30 02/05/21 01:31 25,000 unit/ Sodium Chloride IV 12 units/kg/hr .Q24H ADAN 8.165 mls/hr Administration Protocol 12 UNITS/KG/HR Sodium Chloride 153.8 meq/ 1,038.45 mls @ 50 mls/hr 02/05/21 08:45 02/05/21 09:13 Dextrose/Water IV 100 mls/hr .[id number] ADAN Administration Sodium Chloride 1,000 ml/ IV 1,000 mls @ 68.039 mls/hr 02/05/21 09:38 Solution IV 02/06/21 00:19 .[id number] ONE 1 ML/KG/HR Heparin Sodium (Porcine) 10, 1,001 mls @ 999 mls/hr 02/06/21 07:00 000 unit/ Sodium Chloride IRRIGATION 02/06/21 23:00 ONCE PRN INTRA-OP Heparin Sodium (Porcine) 2,500 250.5 mls @ 250 mls/hr 02/06/21 07:00 unit/ Sodium Chloride IRRIGATION 02/06/21 23:00 ONCE PRN INTRA-OP Isosorbide Mononitrate 30 mg 02/06/21 09:00 Isosorbide Mononitrate Er 30 Mg Tab.Er.24h PO QAM ADAN Letrozole 2.5 mg 02/05/21 10:15 02/05/21 10:42 Letrozole 2.5 Mg Tab PO 2.5 mg DAILY ADAN Administration Lisinopril 5 mg 02/05/21 09:30 02/05/21 10:41 Lisinopril 5 Mg Tab PO 5 mg BID ADAN Administration Morphine Sulfate 4 mg 02/05/21 00:16 Morphine Sulfate 4 Mg/Ml Syringe IV Q4HR PRN Chest Pain Nitroglycerin 0.4 mg 02/05/21 00:16 Nitroglycerin Sl Tabs 0.4 Mg Tab SUBLINGUAL Q5M PRN Chest Pain Oxcarbazepine 300 mg 02/05/21 10:15 02/05/21 10:42 Oxcarbazepine 300 Mg Tab PO 300 mg BID ADAN Administration Pantoprazole Sodium 40 mg 02/06/21 07:30 Pantoprazole 40 Mg Tablet PO AC-BRKFST ADAN Paroxetine HCl 40 mg 02/05/21 10:15 02/05/21 10:42 Paroxetine 20 Mg Tab PO 40 mg DAILY ADAN Administration Spironolactone 25 mg 02/05/21 09:30 02/05/21 10:41 Spironolactone 25 Mg Tab PO 25 mg DAILY ADAN Administration Trazodone HCl 100 mg 02/05/21 21:00 Trazodone Hcl 100 Mg Tab PO HS ADAN Intake and Output 02/04/21 02/05/21 02/05/21 22:59 06:59 14:59 Other: Voiding Method Toilet # Voids 1 # Bowel Movements 1 Weight 68.039 kg 68.039 kg Patient Weight 02/06/21 06:59 Weight 68.039 kg 02/04/21 22:53 02/04/21 22:53
[2021-02-05 14:51] LABS: Glucose,Whole Blood 96 mg/dL (75-99)
[2021-02-05 15:22] LABS: Glucose,Whole Blood 89 mg/dL (75-99)
[2021-02-05 16:18] LABS: Glucose,Whole Blood 61 mg/dL (75-99)
[2021-02-05 16:23] LABS: Glucose,Whole Blood 222 mg/dL (75-99)
[2021-02-05] MEDS: carvediloL 6.25 MG TAB PO SCH (17:08)
[2021-02-05 17:12] LABS: Glucose,Whole Blood 115 mg/dL (75-99)
[2021-02-05] MEDS ORDERED: carvediloL 3.125 MG TAB PO SCH (17:30)
[2021-02-05] MEDS: ALPRAZolam 0.5 MG TAB PO PRN ×2 (17:33→23:46)
[2021-02-05 18:09] LABS: Glucose,Whole Blood 153 mg/dL (75-99)
[2021-02-05] MEDS: DEXTROSE 50% SYRINGE 50 ML IVP SCH ×3 (18:25→22:40)
[2021-02-05 19:19] LABS: Glucose,Whole Blood 166 mg/dL (75-99)
[2021-02-05 19:24] LABS: Glucose,Whole Blood 137 mg/dL (75-99)
[2021-02-05] MEDS: ATORVASTATIN 80 MG TAB PO SCH (20:28)
[2021-02-05] MEDS: traZODone HCL 100 MG TAB PO SCH (20:29)
[2021-02-05 20:35] LABS: Glucose,Whole Blood 105 mg/dL (75-99)
[2021-02-05 21:34] LABS: Glucose,Whole Blood 147 mg/dL (75-99)
[2021-02-05 22:22] LABS: Glucose,Whole Blood 160 mg/dL (75-99)
[2021-02-05 23:44] LABS: Glucose,Whole Blood 179 mg/dL (75-99)
[2021-02-06 00:36] LABS: Glucose,Whole Blood 110 mg/dL (75-99)
[2021-02-06] MEDS: DEXTROSE 50% SYRINGE 50 ML IVP SCH ×12 (00:38→22:33)
[2021-02-06 01:33] LABS: Glucose,Whole Blood 135 mg/dL (75-99)
[2021-02-06 02:50] LABS: Glucose,Whole Blood 112 mg/dL (75-99)
[2021-02-06] MEDS: HEPARIN SOD,PORK IN 0.45% NACL 25,000 UNIT in 0.45% NACL 1 250ML.BAG IV SCH (03:12)
[2021-02-06] MEDS: DEXTROSE 10% IN WATER 1,000 ML with SODIUM CHLORIDE 4MEQ/ML VIAL 153.8 MEQ IV SCH (03:12)
[2021-02-06 03:54] LABS: Glucose,Whole Blood 162 mg/dL (75-99)
[2021-02-06 04:54] LABS: Glucose,Whole Blood 121 mg/dL (75-99)
[2021-02-06] MEDS: ASPIRIN 81 MG PO SCH (05:42)
[2021-02-06] MEDS: SPIRONOLACTONE 25 MG TAB PO SCH (05:45)
[2021-02-06] MEDS: PARoxetine 20 MG TAB PO SCH (05:47)
[2021-02-06] MEDS: ISOSORBIDE MONONITRATE ER 30 MG TAB.ER.24H PO SCH (05:47)
[2021-02-06] MEDS: PANTOPRAZOLE 40 MG TABLET PO SCH (05:47)
[2021-02-06] MEDS: carvediloL 6.25 MG TAB PO SCH ×2 (05:47→17:17)
[2021-02-06] MEDS: lisinopriL 5 MG TAB PO SCH (05:47)
[2021-02-06] MEDS: OXcarbazepine 300 MG TAB PO SCH ×2 (05:56→20:11)
[2021-02-06] MEDS: LETROZOLE 2.5 MG TAB PO SCH (05:56)
[2021-02-06] MEDS ORDERED: ATORVASTATIN 80 MG TAB PO ONE (06:00)
[2021-02-06] MEDS ORDERED: ASPIRIN 325 MG TAB PO ONE (06:00)
[2021-02-06 06:01] LABS: Glucose,Whole Blood 126 mg/dL (75-99)
[2021-02-06 06:34] LABS: Glucose,Whole Blood 119 mg/dL (75-99)
[2021-02-06] MEDS ORDERED: HEPARIN SODIUM,PORCINE 10,000 UNIT in SODIUM CHLORIDE 0.9% 1,000 ML IRRIGATION PRN (07:00)
[2021-02-06] MEDS ORDERED: HEPARIN SODIUM,PORCINE 2,500 UNIT in SODIUM CHLORIDE 0.9% 250 ML IRRIGATION PRN (07:00)
[2021-02-06 07:38] LABS: Glucose,Whole Blood 142 mg/dL (75-99)
[2021-02-06 08:41] LABS: Glucose,Whole Blood 214 mg/dL (75-99)
[2021-02-06] MEDS ORDERED: ASPIRIN 325 MG TAB PO SCH (09:00)
[2021-02-06] MEDS ORDERED: IV FLUID CONTINUATION 700 ML IV ONE (09:20)
[2021-02-06 09:34] LABS: Glucose,Whole Blood 134 mg/dL (75-99)
[2021-02-06] MEDS ORDERED: fentaNYL (PF) 50 MCG/ML 2 ML AMP IV ONE (09:41)
[2021-02-06] MEDS ORDERED: SODIUM CHLORIDE 0.9% 500 ML 500 ML IV ONE (09:41)
[2021-02-06] MEDS ORDERED: LIDOCAINE 1% INJ 10MG/ML (20 ML MDV) SQ ONE (09:42)
[2021-02-06] MEDS ORDERED: MIDAZOLAM 2 MG/2 ML VIAL IV ONE (09:44)
[2021-02-06] MEDS ORDERED: IOPAMIDOL-370 125ML BTL INJ ONE (09:52)
[2021-02-06 10:05] LABS: African American GFR (CKD) >90 (>60 ml/min/1.73 sqM); Anion Gap 3 mmol/L; Blood Urea Nitrogen 9 mg/dL (7-17); Calcium 8.8 mg/dL (8.4-10.2); Carbon Dioxide 25 mmol/L (22-30); Chloride 109 mmol/L (98-107); Glucose 163 mg/dL (74-99); Non-African American GFR(CKD) 87 (>60 ml/min/1.73 sqM); Potassium 4.3 mmol/L (3.5-5.1); Sodium 137 mmol/L (137-145)
[2021-02-06] MEDS ORDERED: RX INFO: IV CONTRAST WAS GIVEN 1 EACH MISC MISCELLANE PRN (10:10)
[2021-02-06 11:03] LABS: Glucose,Whole Blood 101 mg/dL (75-99)
[2021-02-06] MEDS ORDERED: traMADol 50 MG TAB PO PRN (11:04)
[2021-02-06] MEDS: SODIUM CHLORIDE 0.9% 1,000 ML IV SCH ×2 (11:14→20:12)
[2021-02-06 12:01] LABS: Glucose,Whole Blood 107 mg/dL (75-99)
[2021-02-06 13:00] LABS: Glucose,Whole Blood 129 mg/dL (75-99)
--- NOTE | 2021-02-06 13:17 | CC ---
CARDIAC CATHETERIZATION REPORT INDICATIONS: Unstable angina. HISTORY: Vanesa is a 70-year-old lady with history of coronary artery disease, status post prior angioplasty of circumflex coronary artery and chronic subtotal occlusion of the right coronary artery, who presented to hospital with hypoglycemia and some chest discomfort and mildly elevated troponin due to which she was advised to undergo cardiac catheterization. PROCEDURE NOTE: After obtaining informed consent, left heart catheterization and coronary angiogram are performed via the right femoral artery using standard Simón catheters. Patient tolerated the procedure well without any obvious immediate complications. A femoral angiogram was performed and Angio-Seal was deployed for hemostasis. Patient received moderate conscious sedation. Total sedation time was 13 minutes. FINDINGS: HEMODYNAMICS: Left ventricular end-diastolic pressure is 20 mm. There is no significant gradient across the aortic valve. LEFT VENTRICULOGRAM: Not performed. ANGIOGRAPHIC DATA: LEFT MAIN CORONARY ARTERY: The left main coronary artery appears calcified but is free of significant stenosis. Divides into left anterior descending coronary artery and circumflex coronary artery. Circumflex coronary artery is a nondominant vessel, was previously stented in the proximal portion, stent appears patent. LEFT ANTERIOR DESCENDING: LAD is a large vessel that wraps around the apex of the heart shows a mild to moderate atherosclerotic plaque in its proximal portion, which is unchanged compared to a catheterization done in 2016. RIGHT CORONARY ARTERY: Is subtotally occluded in its midportion and there are extensive collaterals from left to distal right. CONCLUSIONS: Patent stent within the circumflex coronary artery, chronic occlusion of the right coronary artery with [id number] collaterals. PLAN: I reviewed angiographic data with the patient and told her that her symptoms are noncardiac in origin. Most recent echo shows actually improved LV function. She does not require further revascularization at this time. She will be followed up in my office in a weeks' time after being discharged home. MMODL / IJN: [id number] /
--- NOTE | 2021-02-06 14:07 | P.PN ---
Subjective This is a pleasant 70-year-old female past medical history significant for coronary artery disease status post PCI circumflex in 2016, type 2 diabetes, hyperlipidemia, chronic nicotine dependence, carotid stenosis, history of ischemic cardiomyopathy. She follows in the office with Dr. Muro. We have been asked to see in consultation for elevated troponin. Patient presents to the emergency department with multiple complaints. She states that lately she's been feeling tired, lightheadedness, dizziness, fatigued, blurry vision, nausea, decreased appetite. We are following for possible NSTEMI. 02/05/21 Echocardiogram revealed an EF of 50-55%, inferior basal hypokinesis, mild mitral regurgitation, mild tricuspid regurgitation. Patient underwent cardiac catheterization with Dr. Muro which revealed patent stent within the circumflex, chronic occlusion of the RCA. Patient seen and examined at bedside, no acute distress. Blood pressure 153, heart rate 60s, maintaining oxygen saturations on room air. Laboratory reviewed sodium 137, potassium 4.3, BUN 9, serum creatinine 0.6 PHYSICAL EXAMINATION CONSTITUTIONAL: No apparent distress. HEENT: Head is normocephalic. No JVD. No carotid bruit. CHEST EXAMINATION: Lungs are clear to auscultation. There is chest wall tenderness noted on palpation HEART EXAMINATION: Regular rate and rhythm. S1, S2 heard. No murmurs, gallops or rub. ABDOMEN: Soft, nontender. Positive bowel sounds. EXTREMITIES: 2+ peripheral pulses, no lower extremity edema and no calf tenderness. SKIN: Right femoral cath site clean dry no hematoma NEUROLOGIC EXAMINATION: Patient is awake, alert and oriented x3. ASSESSMENT Unstable Angina Hypoglycemia History of ischemic cardiomyopathy, however, patient has had multiple echocardiograms with EF 20-25% most recent 09/2020- Echo today however, showed EF 50-55% Chronic nicotine dependence Type 2 Diabetes Hyperlipidemia History of hypertension History of carotid stenosis PLAN -We will continue current medical therapy with lisinopril 5mg daily and sprionolactone 25mg daily, aspirin, statin, carvedilol, Imdur -Smoking cessation discussed and highly recommended. -Further recommendations based on clinical course Nurse Practitioner note has been reviewed, I agree with a documented findings and plan of care. Patient was seen and examined. Objective - Vital Signs Vital signs: Vital Signs Temp 98.0 F 02/06/21 11:41 Pulse 69 02/06/21 08:00 Resp 16 02/06/21 12:55 BP 109/53 02/06/21 12:55 Pulse Ox 97 02/06/21 12:55 Intake & Output 02/05/21 02/06/21 02/06/21 18:59 06:59 18:59 Intake Total 234.704 625 Output Total 1200 Balance -965.296 625 Weight 68.039 kg 61.7 kg Intake: IV 175 Intake, IV Titration 209.704 Amount Heparin Sod,Pork in 0.45% 209.704 NaCl 25,000 unit In 0.45 % NaCl 1 250ml.bag @ 12 UNITS/KG/HR 8.165 mls/hr IV .Q24H [facility] Rx#: [id number] Oral 25 450 Output: Urine 1200 Other: Voiding Method Toilet Toilet Toilet # Voids 1 2 1 # Bowel Movements 1 - Labs CBC & Chem 7: 02/04/21 22:53 02/06/21 08:56 Labs: Abnormal Lab Results - Last 24 Hours (Table) 02/05/21 02/05/21 02/05/21 Range/Units 16:07 16:22 17:00 APTT (22.0-30.0) sec Chloride (98-107) mmol/L Glucose (74-99) mg/dL POC Glucose (mg/dL) 61 L 222 H 115 H (75-99) mg/dL 02/05/21 02/05/21 02/05/21 Range/Units 18:06 19:08 19:22 APTT (22.0-30.0) sec Chloride (98-107) mmol/L Glucose (74-99) mg/dL POC Glucose (mg/dL) 153 H 166 H 137 H (75-99) mg/dL 02/05/21 02/05/21 02/05/21 Range/Units 20:24 21:23 22:21 APTT (22.0-30.0) sec Chloride (98-107) mmol/L Glucose (74-99) mg/dL POC Glucose (mg/dL) 105 H 147 H 160 H (75-99) mg/dL 02/05/21 02/06/21 02/06/21 Range/Units 23:32 00:34 01:32 APTT (22.0-30.0) sec Chloride (98-107) mmol/L Glucose (74-99) mg/dL POC Glucose (mg/dL) 179 H 110 H 135 H (75-99) mg/dL 02/06/21 02/06/21 02/06/21 Range/Units 02:49 03:37 04:43 APTT (22.0-30.0) sec Chloride (98-107) mmol/L Glucose (74-99) mg/dL POC Glucose (mg/dL) 112 H 162 H 121 H (75-99) mg/dL 02/06/21 02/06/21 02/06/21 Range/Units 05:50 06:33 07:36 APTT (22.0-30.0) sec Chloride (98-107) mmol/L Glucose (74-99) mg/dL POC Glucose (mg/dL) 126 H 119 H 142 H (75-99) mg/dL 02/06/21 02/06/21 02/06/21 Range/Units 08:40 08:56 08:56 APTT 32.2 H (22.0-30.0) sec Chloride 109 H (98-107) mmol/L Glucose 163 H (74-99) mg/dL POC Glucose (mg/dL) 214 H (75-99) mg/dL 02/06/21 02/06/21 02/06/21 Range/Units 09:33 10:52 11:56 APTT (22.0-30.0) sec Chloride (98-107) mmol/L Glucose (74-99) mg/dL POC Glucose (mg/dL) 134 H 101 H 107 H (75-99) mg/dL 02/06/21 Range/Units 12:58 APTT (22.0-30.0) sec Chloride (98-107) mmol/L Glucose (74-99) mg/dL POC Glucose (mg/dL) 129 H (75-99) mg/dL
[2021-02-06 14:22] LABS: Glucose,Whole Blood 146 mg/dL (75-99)
[2021-02-06] MEDS: HYDROcodone/APAP 5-325MG 1 EACH TAB PO PRN (14:48)
[2021-02-06 15:48] LABS: Glucose,Whole Blood 163 mg/dL (75-99)
[2021-02-06 16:14] LABS: Glucose,Whole Blood 172 mg/dL (75-99)
--- NOTE | 2021-02-06 16:17 | P.PN ---
Subjective 70-year-old male came in with the complaints of diaphoresis dizziness and anxiety. Patient blood sugars were found to be extremely low because of which patient is excessively admitted. Patient has been losing weight because of her breast cancer and chemotherapy. Patient has been taking long-acting insulin although very low-dose patient has been on this dose for a while. Patient was initially on D5 and then was switched to D10 because of nonimprovement of her hypoglycemia patient lives by herself unsure whether patient is taking appropriate doses of her medications. Patient does have history of congestive heart failure with EF of around 20-25% had history of cardiac catheterization recently patient has mildly elevated troponins because of which cardiology will evaluate the patient. 02/06/2021 Patient's blood sugars remains low because of which will continue monitoring for 1 more day. Patient remains in the D10 which will be discontinued at this time we will monitor closely. Sugars are improving though. Patient had a cardiac authorization which did not show any significant occlusion. Patient is comparing of back pain for which patient was given tramadol with no improvement will add low-dose of [place]. Constitutional: Denied any fatigue denied any fever. Cardio vascular: denied any chest pain, palpitations Gastrointestinal denied any nausea vomiting Pulmonary: Denied any shortness of breath cough Neurologic denied any new focal deficits All inpatient medications were reviewed and appropriate changes in these medi cations as dictated in the interval history and assessment and plan. PHYSICAL EXAMINATION: GENERAL: The patient is alert and oriented x3, not in any acute distress. Well developed, well nourished. HEENT: Pupils are round and equally reacting to light. EOMI. No scleral icterus. No conjunctival pallor. Normocephalic, atraumatic. No pharyngeal erythema. No thyromegaly. CARDIOVASCULAR: S1 and S2 present. No murmurs, rubs, or gallops. PULMONARY: Chest is clear to auscultation, no wheezing or crackles. ABDOMEN: Soft, nontender, nondistended, normoactive bowel sounds. No palpable organomegaly. MUSCULOSKELETAL: No joint swelling or deformity. EXTREMITIES: No cyanosis, clubbing, or pedal edema. NEUROLOGICAL: Gross neurological examination did not reveal any focal deficits. SKIN: No rashes. Assessment and plan -Hypoglycemia: Can be related to unintentional overuse of long-acting insulin although patient has been losing weight may not require any insulin hemoglobin A1c is pending and D5 will be discontinued and patient mantra for 1 more night -Mildly elevated troponins: Patient underwent cardiac catheterization which did not show any significant coronary occlusive disease that will need intervention -Congestiveheart failure chronic systolic dysfunction without any acute exacerb ation at this time. Patient's ejection fraction appears to have improved patient ejection fraction is normalized now patient had decreased ejection fraction post myocardial infarction which improved. -Coronary artery disease with recent stenting in month of October . Nicotine use, nicotine cessation counseling was provided -Type 2 diabetes mellitus with the hypoglycemia management as mentioned above -Hyperlipidemia -Gastroesophageal reflux disease DVT prophylaxis: Patient is presently on the cutaneous Lovenox Objective - Vital Signs Vital signs: Vital Signs Temp 98.0 F 02/06/21 11:41 Pulse 69 02/06/21 08:00 Resp 16 02/06/21 14:00 BP 123/56 02/06/21 13:55 Pulse Ox 96 02/06/21 13:55 Intake & Output 02/05/21 02/06/21 02/06/21 18:59 06:59 18:59 Intake Total 234.704 625 Output Total 1200 Balance -965.296 625 Weight 68.039 kg 61.7 kg Intake: IV 175 Intake, IV Titration 209.704 Amount Heparin Sod,Pork in 0.45% 209.704 NaCl 25,000 unit In 0.45 % NaCl 1 250ml.bag @ 12 UNITS/KG/HR 8.165 mls/hr IV .Q24H [facility] Rx#: [id number] Oral 25 450 Output: Urine 1200 Other: Voiding Method Toilet Toilet Toilet # Voids 1 2 1 # Bowel Movements 1 - Labs CBC & Chem 7: 02/04/21 22:53 02/06/21 08:56 Labs: Abnormal Lab Results - Last 24 Hours (Table) 02/05/21 02/05/21 02/05/21 Range/Units 16:07 16:22 17:00 APTT (22.0-30.0) sec Chloride (98-107) mmol/L Glucose (74-99) mg/dL POC Glucose (mg/dL) 61 L 222 H 115 H (75-99) mg/dL 02/05/21 02/05/21 02/05/21 Range/Units 18:06 19:08 19:22 APTT (22.0-30.0) sec Chloride (98-107) mmol/L Glucose (74-99) mg/dL POC Glucose (mg/dL) 153 H 166 H 137 H (75-99) mg/dL 02/05/21 02/05/21 02/05/21 Range/Units 20:24 21:23 22:21 APTT (22.0-30.0) sec Chloride (98-107) mmol/L Glucose (74-99) mg/dL POC Glucose (mg/dL) 105 H 147 H 160 H (75-99) mg/dL 02/05/21 02/06/21 02/06/21 Range/Units 23:32 00:34 01:32 APTT (22.0-30.0) sec Chloride (98-107) mmol/L Glucose (74-99) mg/dL POC Glucose (mg/dL) 179 H 110 H 135 H (75-99) mg/dL 02/06/21 02/06/21 02/06/21 Range/Units 02:49 03:37 04:43 APTT (22.0-30.0) sec Chloride (98-107) mmol/L Glucose (74-99) mg/dL POC Glucose (mg/dL) 112 H 162 H 121 H (75-99) mg/dL 02/06/21 02/06/21 02/06/21 Range/Units 05:50 06:33 07:36 APTT (22.0-30.0) sec Chloride (98-107) mmol/L Glucose (74-99) mg/dL POC Glucose (mg/dL) 126 H 119 H 142 H (75-99) mg/dL 02/06/21 02/06/21 02/06/21 Range/Units 08:40 08:56 08:56 APTT 32.2 H (22.0-30.0) sec Chloride 109 H (98-107) mmol/L Glucose 163 H (74-99) mg/dL POC Glucose (mg/dL) 214 H (75-99) mg/dL 02/06/21 02/06/21 02/06/21 Range/Units 09:33 10:52 11:56 APTT (22.0-30.0) sec Chloride (98-107) mmol/L Glucose (74-99) mg/dL POC Glucose (mg/dL) 134 H 101 H 107 H (75-99) mg/dL 02/06/21 02/06/21 02/06/21 Range/Units 12:58 14:19 15:20 APTT (22.0-30.0) sec Chloride (98-107) mmol/L Glucose (74-99) mg/dL POC Glucose (mg/dL) 129 H 146 H 163 H (75-99) mg/dL 02/06/21 Range/Units 16:11 APTT (22.0-30.0) sec Chloride (98-107) mmol/L Glucose (74-99) mg/dL POC Glucose (mg/dL) 172 H (75-99) mg/dL
[2021-02-06 17:28] LABS: Glucose,Whole Blood 152 mg/dL (75-99)
[2021-02-06 18:03] LABS: Glucose,Whole Blood 186 mg/dL (75-99)
[2021-02-06 19:09] LABS: Glucose,Whole Blood 126 mg/dL (75-99)
[2021-02-06] MEDS: traZODone HCL 100 MG TAB PO SCH (20:11)
[2021-02-06] MEDS: ATORVASTATIN 80 MG TAB PO SCH (20:11)
[2021-02-06] MEDS: ALPRAZolam 0.5 MG TAB PO PRN (20:11)
[2021-02-07 00:04] LABS: Glucose,Whole Blood 108 mg/dL (75-99)
[2021-02-07 01:19] LABS: Chol/HDL Ratio 4.65; LDL Cholesterol,Calculated 112.4 mg/dL (0.0-131.0); VLDL Calculation 33.6 mg/dL (5.00-40.00)
[2021-02-07] MEDS: DEXTROSE 50% SYRINGE 50 ML IVP SCH ×7 (01:57→13:50)
[2021-02-07 02:14] LABS: Hemoglobin A1C 5.7 % (4.0-6.0)
[2021-02-07] MEDS: HYDROcodone/APAP 5-325MG 1 EACH TAB PO PRN ×2 (04:23→12:50)
[2021-02-07 04:45] VITALS: RESP 20
[2021-02-07 06:03] LABS: Glucose,Whole Blood 116 mg/dL (75-99)
[2021-02-07] MEDS: carvediloL 6.25 MG TAB PO SCH (06:06)
[2021-02-07] MEDS: PANTOPRAZOLE 40 MG TABLET PO SCH (06:06)
[2021-02-07] MEDS: PARoxetine 20 MG TAB PO SCH (08:25)
[2021-02-07] MEDS: SPIRONOLACTONE 25 MG TAB PO SCH (08:26)
[2021-02-07] MEDS: ASPIRIN 81 MG PO SCH (08:26)
[2021-02-07] MEDS: ISOSORBIDE MONONITRATE ER 30 MG TAB.ER.24H PO SCH (08:26)
[2021-02-07] MEDS: OXcarbazepine 300 MG TAB PO SCH (08:26)
[2021-02-07] MEDS: LETROZOLE 2.5 MG TAB PO SCH (08:27)
[2021-02-07 08:52] LABS: Calcium 9.4 mg/dL (8.4-10.2); Potassium 4.6 mmol/L (3.5-5.1)
[2021-02-07] MEDS ORDERED: ENOXAPARIN 40 MG/0.4 ML SYRINGE SQ SCH (09:00)
[2021-02-07] MEDS ORDERED: lisinopriL 5 MG TAB PO SCH (09:00)
[2021-02-07 10:45] VITALS: BP 120/56; PULSE 64; TEMP 98.2
--- NOTE | 2021-02-07 11:30 | P.DS ---
Providers Date of admission: 02/05/21 00:16 Attending physician: Rebekah Smallwood Consults: 02/05/21 00:16 Consult Physician Urgent Consulting Provider: Adrianna Waddell Consult Reason/Comments: nstemi Do you want consulting provider notified?: Yes Primary care physician: [facility] Course: 70-year-old male came in with the complaints of diaphoresis dizziness and anxiety. Patient blood sugars were found to be extremely low because of which patient is excessively admitted. Patient has been losing weight because of her breast cancer and chemotherapy. Patient has been taking long-acting insulin although very low-dose patient has been on this dose for a while. Patient was initially on D5 and then was switched to D10 because of nonimprovement of her hypoglycemia patient lives by herself unsure whether patient is taking appropriate doses of her medications. Patient does have history of congestive heart failure with EF of around 20-25% had history of cardiac catheterization recently patient has mildly elevated troponins because of which cardiology will evaluate the patient. 02/06/2021 Patient's blood sugars remains low because of which will continue monitoring for 1 more day. Patient remains in the D10 which will be discontinued at this time we will monitor closely. Sugars are improving though. Patient had a cardiac authorization which did not show any significant occlusion. Patient is comparing of back pain for which patient was given tramadol with no improvement will add low-dose of [place]. 02/07/2021 Patient is clinically doing much better blood sugars are stable now patient will be discharged today patient is on a low-dose of insulin long-acting which will be discontinued at this time. Patient was started on Marinol after which her appetite improved now that her appetite improved patient may end up needing some medication for her diabetes mellitus because of which asked her to check blood sugars twice a day at home. PHYSICAL EXAMINATION: GENERAL: The patient is alert and oriented x3, not in any acute distress. Well developed, well nourished. HEENT: Pupils are round and equally reacting to light. EOMI. No scleral icterus. No conjunctival pallor. Normocephalic, atraumatic. No pharyngeal erythema. No thyromegaly. CARDIOVASCULAR: S1 and S2 present. No murmurs, rubs, or gallops. PULMONARY: Chest is clear to auscultation, no wheezing or crackles. ABDOMEN: Soft, nontender, nondistended, normoactive bowel sounds. No palpable organomegaly. MUSCULOSKELETAL: No joint swelling or deformity. EXTREMITIES: No cyanosis, clubbing, or pedal edema. NEUROLOGICAL: Gross neurological examination did not reveal any focal deficits. SKIN: No rashes. Assessment and plan -Hypoglycemia: Can be related to unintentional overuse of long-acting insulin al though patient has been losing weight may not require any insulin hemoglobin A1c is 5.7. Insulin will be discontinued blood sugars are stable today will be discharged today -Mildly elevated troponins: Patient underwent cardiac catheterization which did not show any significant coronary occlusive disease that will need intervention -Congestiveheart failure chronic systolic dysfunction without any acute exacerbation at this time. Patient's ejection fraction appears to have improved patient ejection fraction is normalized now patient had decreased ejection fraction post myocardial infarction which improved. -Coronary artery disease with recent stenting in month of October . Nicotine use, nicotine cessation counseling was provided -Type 2 diabetes mellitus with the hypoglycemia management as mentioned above -Hyperlipidemia -Gastroesophageal reflux disease Patient Condition at Discharge: Serious Plan - Discharge Summary Discharge Rx Participant: No New Discharge Prescriptions: New Spironolactone [Aldactone] 25 mg PO DAILY #30 tab dronabinoL [Marinol] 2.5 mg PO AC-BID #20 cap carvediloL [Coreg] 6.25 mg PO AC-BID #60 tab lisinopriL [Zestril] 5 mg PO DAILY #30 tab Continue PARoxetine HCL [Paxil] 40 mg PO DAILY Isosorbide Mononitrate ER [Imdur] 30 mg PO QAM Atorvastatin [Lipitor] 80 mg PO HS Omeprazole 20 mg PO QAM OXcarbazepine [Trileptal] 300 mg PO BID Aspirin EC [Ecotrin Low Dose] 81 mg PO DAILY Letrozole [Femara] 2.5 mg PO DAILY 30 Days #30 tab traZODone HCL [Desyrel] 100 mg PO HS clonazePAM [KlonoPIN] 1 mg PO BID PRN PRN Reason: Anxiety Discontinued carvediloL [Coreg] 3.125 mg PO AC-BID Insulin Glargine,Hum.rec.anlog [Lantus Solostar] 5 unit SQ HS Discharge Medication List PARoxetine HCL [Paxil] 40 mg PO DAILY 06/24/16 [History] Isosorbide Mononitrate ER [Imdur] 30 mg PO QAM 09/02/17 [History] Atorvastatin [Lipitor] 80 mg PO HS 11/29/19 [History] Omeprazole 20 mg PO QAM 01/29/20 [History] OXcarbazepine [Trileptal] 300 mg PO BID 02/19/20 [History] Aspirin EC [Ecotrin Low Dose] 81 mg PO DAILY 09/12/20 [History] Letrozole [Femara] 2.5 mg PO DAILY 30 Days #30 tab 09/18/20 [Rx] clonazePAM [KlonoPIN] 1 mg PO BID PRN 02/05/21 [History] traZODone HCL [Desyrel] 100 mg PO HS 02/05/21 [History] Spironolactone [Aldactone] 25 mg PO DAILY #30 tab 02/07/21 [Rx] carvediloL [Coreg] 6.25 mg PO AC-BID #60 tab 02/07/21 [Rx] dronabinoL [Marinol] 2.5 mg PO AC-BID #20 cap 02/07/21 [Rx] lisinopriL [Zestril] 5 mg PO DAILY #30 tab 02/07/21 [Rx] Follow up Appointment(s)/Referral(s): Nancy Chavez MD [Primary Care Provider] - 3 Days Jonatan Muro MD [STAFF PHYSICIAN] - 1 Week Discharge Disposition: HOME SELF-CARE
[2021-02-07 11:56] LABS: Glucose,Whole Blood 114 mg/dL (75-99)
[2021-02-07] MEDS: SODIUM CHLORIDE 0.9% 1,000 ML IV SCH (13:50)
--- NOTE | 2021-02-07 14:51 | P.PN ---
Subjective Progress Note Date: 02/07/21 This pleasant 70-year-old female with past medical history significant for CAD status post PCI of the circumflex in 2016, diabetes mellitus type 2, hyperlipidemia, chronic nicotine dependence, carotid stenosis, and history of ischemic cardiomyopathy. Follows with Dr. Lechuga in the office. We were asked to the patient in consultation for elevated troponin. Echocardiogram with Doppler study showed low normal LV systolic function with an ejection fraction of 50- 55%, with inferior basal hypokinesis, mild MR and mild TR. She was recommended to undergo cardiac catheterization which revealed patent stent within the circumflex, chronic occlusion of the RCA. On examination the patient is resting comfortably in bed. She complains of right-sided chest discomfort as a result of some radiation she is received in the past. She denies any shortness of breath, dizziness or lightheadedness. She has no orthopnea or PND and no edema. Her vital signs are stable and she is afebrile. Objective - Vital Signs Vital signs: Vital Signs Temp 98.2 F 02/07/21 08:00 Pulse 64 02/07/21 08:00 Resp 20 02/07/21 08:00 BP 120/56 02/07/21 08:00 Pulse Ox 95 02/07/21 08:00 Intake & Output 02/06/21 02/07/21 02/07/21 18:59 06:59 18:59 Intake Total 1994 240 Balance 1994 240 Weight 64.2 kg Intake: IV 175 Intake, IV Titration 450 Amount Sodium Chloride 0.9% 1, 450 000 ml @ 75 mls/hr IV . [id number] [facility] Rx#:[id number] Oral 1370 240 Other: Voiding Method Toilet Toilet # Voids 3 1 - Exam PHYSICAL EXAMINATION: HEENT: Head is atraumatic, normocephalic. Pupils equal, round. Neck is supple. There is no elevated jugular venous pressure. HEART EXAMINATION: Heart sounds regular, S1 and S2 normal. No murmur or gallop heard. CHEST EXAMINATION: Lungs are clear to auscultation and precussion. No chest wall tenderness is noted on palpation or with deep breathing. ABDOMEN: Soft, nontender. Bowel sounds are heard. No organomegaly noted. EXTREMITIES: 2+ peripheral pulses with no evidence of peripheral edema and no calf tenderness noted. Right femoral puncture site clean dry and intact, no ecchymosis or hematoma. Patient does complain of some mild tenderness to palpation. NEUROLOGIC patient is awake, alert and oriented x3. . - Labs CBC & Chem 7: 02/04/21 22:53 02/07/21 07:30 Labs: Abnormal Lab Results - Last 24 Hours (Table) 02/06/21 02/06/21 02/06/21 Range/Units 08:56 12:58 14:19 Glucose (74-99) mg/dL POC Glucose (mg/dL) 129 H 146 H (75-99) mg/dL Triglycerides 168.0 H (0.0-149.0) mg/dL 02/06/21 02/06/21 02/06/21 Range/Units 15:20 16:11 17:08 Glucose (74-99) mg/dL POC Glucose (mg/dL) 163 H 172 H 152 H (75-99) mg/dL Triglycerides (0.0-149.0) mg/dL 02/06/21 02/06/21 02/07/21 Range/Units 18:00 19:08 00:03 Glucose (74-99) mg/dL POC Glucose (mg/dL) 186 H 126 H 108 H (75-99) mg/dL Triglycerides (0.0-149.0) mg/dL 02/07/21 02/07/21 02/07/21 Range/Units 06:02 07:30 11:54 Glucose 108 H (74-99) mg/dL POC Glucose (mg/dL) 116 H 114 H (75-99) mg/dL Triglycerides (0.0-149.0) mg/dL Assessment and Plan Assessment: #1 unstable angina #2 hypoglycemia #3 history of ischemic cardiomyopathy with most recent echocardiogram done this admission showing an ejection fraction of 50-55% #4 chronic nicotine dependence #5 diabetes mellitus type 2 #6 hyperlipidemia #7 hypertension #8 history of carotid stenosis Plan: From cardiology's perspective cardiac catheterization showed patent stent in the circumflex was chronic occlusion of the RCA unchanged from previous. Medications were reviewed and we'll continue the same. Encouraged smoking cessation. From our standpoint patient may be discharged home today and follow- up with Dr. Muro in the office. [employer] note has been reviewed, I agree with a documented findings and plan of care. Patient was seen and examined.
== END 2021-02-07 15:30 | disposition home or self-care (01) | DRG 918 ==
LOC: EC 22:33 → 3SCARD 02-05 00:16
PROVIDERS: ADMIT Hospitalist; ATTEND Hospitalist
PROC: B2111ZZ Fluoroscopy of Multiple Coronary Arteries using Low Osmolar Contrast (ICD-10-PCS; 2021-02-06)
PROC: 4A023N7 Measurement of Cardiac Sampling and Pressure, Left Heart, Percutaneous Approach (ICD-10-PCS; principal; 2021-02-06 07:30)
DX: T38.3X1A Poisoning by insulin and oral hypoglycemic [antidiabetic] drugs, accidental (unintentional), initial encounter (principal); I50.22 Chronic systolic (congestive) heart failure; E11.649 Type 2 diabetes mellitus with hypoglycemia without coma; Z95.5 Presence of coronary angioplasty implant and graft; F31.9 Bipolar disorder, unspecified; F41.9 Anxiety disorder, unspecified; F17.200 Nicotine dependence, unspecified, uncomplicated; Z83.3 Family history of diabetes mellitus; Z82.49 Family history of ischemic heart disease and other diseases of the circulatory system; C50.919 Malignant neoplasm of unspecified site of unspecified female breast; Z92.21 Personal history of antineoplastic chemotherapy; K21.9 Gastro-esophageal reflux disease without esophagitis; Z92.3 Personal history of irradiation; I25.10 Atherosclerotic heart disease of native coronary artery without angina pectoris; I25.2 Old myocardial infarction; Z79.82 Long term (current) use of aspirin; E78.5 Hyperlipidemia, unspecified; I25.5 Ischemic cardiomyopathy; I65.29 Occlusion and stenosis of unspecified carotid artery; I11.0 Hypertensive heart disease with heart failure; Z79.811 Long term (current) use of aromatase inhibitors; Z79.899 Other long term (current) drug therapy; I08.1 Rheumatic disorders of both mitral and tricuspid valves
CPT/HCPCS: 36415; 71046; 80048; 80053; 80061; 81003; 82550; 83036; 83605; 83735; 83880; 84100; 84443; 84484; 85025; 85610; 85730; 93005; 93306; 93458; 96361; 96374; 99291

== ENCOUNTER 2021-02-12 08:01 | Observation (INO) | payer MEDICARE, OTHER ==
[2021-02-12] MEDS ORDERED: LORazepam 2 MG/ML INJ IV STA (08:34)
--- NOTE | 2021-02-12 08:39 | ED ---
General Adult HPI - General Chief complaint: Abdominal Pain Stated complaint: anxiety Time Seen by Provider: 02/12/21 08:16 Source: EMS Mode of arrival: EMS Limitations: physical limitation - History of Present Illness Initial comments: Dictation was produced using [employer] dictation software. please excuse any grammatical, word or spelling errors. Chief Complaint: 70-year-old female presents emergency department for back pain and lower abdominal pain History of Present Illness: To 70-year-old female she had a cardiac catheterization proximal one week ago. States that she had some urinary artery stents placed at that time. She is discharged stable medical condition. She presents today for acute on chronic back pain and lower abdominal pain. Patient states she feels anxious. Sons are at bedside reports that patient made c omments about committing suicide today. She lives alone and therefore she does not have any weapons at home. Patient states repeatedly "I can't do this anymore." States that she does feel suicidal. She does not feel homicidal. No history of visual auditory hallucinations. Sons at bedside reports that patient is very anxious. Son reports that he called his mother on the phone. Mother reports feeling very anxious. Son called EMS. EMS recalled that the son told him that patient feels suicidal. Patient reports having back pain however she's had weeks and weeks of back pain. States that her symptoms have not progressed. The ROS documented in this emergency department record has been reviewed and confirmed by me. Those systems with pertinent positive or negative responses have been documented in the HPI. All other systems are other negative and/or noncontributory. PHYSICAL EXAM: General Impression: Alert and oriented x3, not in acute distress HEENT: Normocephalic atraumatic, extra-ocular movements intact, pupils equal and reactive to light bilaterally, mucous membranes moist. Cardiovascular: Heart regular rate and rhythm Chest: Able to complete full sentences, no retractions, no tachypnea Abdomen: abdomen soft, non-tender, non-distended, no organomegaly Musculoskeletal: Pulses present and equal in all extremities, no peripheral edema Motor: no focal deficits noted Neurological: CN II-XII grossly intact, no focal motor or sensory deficits noted Skin: Multiple superficial lacerations to the left anterior forearm Psych: Anxious Bilateral groins: No masses felt ED course: 70-year-old female presents emergency department for anxiety, signs upon arrival are within acceptable limits. Patient is anxious at the bedside. Physical examination however is otherwise benign. Chart review was performed. Patient did have a cardiac catheterization performed 6 days ago. Documentation shows that no stent was placed and that her cardiac catheterization was otherwise unremarkable. EKG shows no signs of ischemia infarction. Bilateral groins does not suggest pseudoaneurysm. Lumbar MRI from earlier this year was reviewed per she has multilevel degenerative changes. She has had Injections in the past to try to help control her pain. Laboratory evaluation obtained. CBC is unremarkable. Metabolic panel shows sodium 127, rest of labs are unremarkable. Urinalysis is unremarkable. Patient was medically cleared for EPS evaluation. EPS recommended discharge with outpatient planning. She began having exacerbations of her back pain. Patient has chronic history of back pain. Patient does not feel comfortable going home because of the severity of her pain. Furthermore she lives by herself and doesn't have a good disposition plan. [facility] with spine surgery consultation. EKG interpretation: Ventricular rate 63, normal sinus rhythm, MT interval 164, care is 82, QTC 427. No MT prolongation, no QTC prolongation, no ST or T-wave changes noted. EKG compared to 02/04/2021 showing no changes. Overall, this EKG is unremarkable - Related Data Home Medications Medication Instructions Recorded Confirmed PARoxetine HCL [Paxil] 40 mg PO DAILY 06/24/16 02/12/21 Isosorbide Mononitrate ER [Imdur] 30 mg PO DAILY 09/02/17 02/12/21 Omeprazole 20 mg PO DAILY 01/29/20 02/12/21 OXcarbazepine [Trileptal] 300 mg PO BID 02/19/20 02/12/21 Aspirin EC [Ecotrin Low Dose] 81 mg PO DAILY 09/12/20 02/12/21 clonazePAM [KlonoPIN] 1 mg PO BID PRN 02/05/21 02/12/21 traZODone HCL [Desyrel] 100 mg PO HS 02/05/21 02/12/21 Previous Rx's Medication Instructions Recorded Letrozole [Femara] 2.5 mg PO DAILY 30 Days #30 tab 09/18/20 Spironolactone [Aldactone] 25 mg PO DAILY #30 tab 02/07/21 carvediloL [Coreg] 6.25 mg PO AC-BID #60 tab 02/07/21 dronabinoL [Marinol] 2.5 mg PO AC-BID #20 cap 02/07/21 lisinopriL [Zestril] 5 mg PO DAILY #30 tab 02/07/21 Allergies Allergy/AdvReac Type Severity Reaction Status Date / Time codeine AdvReac Nausea & Verified 02/12/21 11:30 Vomiting Latex, Natural Rubber AdvReac Rash/Hives/ Verified 02/12/21 11:30 itching Review of Systems ROS Statement: Those systems with pertinent positive or pertinent negative responses have been documented in the HPI. ROS Other: All systems not noted in ROS Statement are negative. Past Medical History Past Medical History: Coronary Artery Disease (CAD), Diabetes Mellitus, GERD/Reflux, Hyperlipidemia, Myocardial Infarction ([place]) Additional Past Medical History / Comment(s): Dx rt breast CA December 2019-takes chemo Po, radiation completed 1 month ago, fx ankle November 2019-has boot (states boot cannot be removed)on rt ankle-uses walker and WBAT, hx7-16-15 pancreatitis. other MIGRAINES, chronic back pain, gout Last Myocardial Infarction Date:: unk History of Any Multi-Drug Resistant Organisms: None Reported Past Surgical History: Breast Surgery, Heart Catheterization With Stent, Orth opedic Surgery Additional Past Surgical History / Comment(s): ORIF rt ankle , EGD/COLONOSCOPY, bone marrow bx-neg, TOTAL OF 3 CARDIAC STENTS, breast bx; right breast lumpectomy w/AND 01/30/20; Past Anesthesia/Blood Transfusion Reactions: No Reported Reaction Additional Past Anesthesia/Blood Transfusion Reaction / Comment(s): clausterphobia Date of Last Stent Placement:: UNK Past Psychological History: Anxiety, Bipolar Smoking Status: Current every day smoker Past Alcohol Use History: None Reported Past Drug Use History: None Reported - Past Family History Son(s) Family Medical History: Cancer Father Family Medical History: Diabetes Mellitus, Myocardial Infarction ([place]) Mother Family Medical History: Cancer, Myocardial Infarction ([place]) General Exam Limitations: physical limitation Course Vital Signs 02/12/21 08:05 Temperature 97.6 F Pulse Rate 64 Respiratory 20 Rate Blood Pressure 141/77 O2 Sat by Pulse 100 Oximetry Medical Decision Making - Lab Data Result diagrams: 02/12/21 08:39 02/12/21 08:39 Lab Results 02/12/21 02/12/21 02/12/21 Range/Units 08:39 08:39 08:39 WBC 4.2 (3.8-10.6) k/uL RBC 4.01 (3.80-5.40) m/uL Hgb 13.5 (11.4-16.0) gm/dL Hct 38.9 (34.0-46.0) % MCV 97.1 (80.0-100.0) fL MCH 33.5 (25.0-35.0) pg MCHC 34.6 (31.0-37.0) g/dL RDW 12.4 (11.5-15.5) % Plt Count 252 (150-450) k/uL MPV 7.5 Neutrophils % (Manual) 63 % Lymphocytes % (Manual) 26 % Monocytes % (Manual) 10 % Eosinophils % (Manual) 1 % Neutrophils # (Manual) 2.65 (1.3-7.7) k/uL Lymphocytes # (Manual) 1.09 (1.0-4.8) k/uL Monocytes # (Manual) 0.42 (0-1.0) k/uL Eosinophils # (Manual) 0.04 (0-0.7) k/uL Nucleated RBCs 0 (0-0) /100 WBC Manual Slide Review Performed RBC Morphology Normal Sodium 127 L (137-145) mmol/L Potassium 4.4 (3.5-5.1) mmol/L Chloride 97 L (98-107) mmol/L Carbon Dioxide 21 L (22-30) mmol/L Anion Gap 9 mmol/L BUN 14 (7-17) mg/dL Creatinine 0.78 (0.52-1.04) mg/dL Est GFR (CKD-EPI)AfAm 88 (>60 ml/min/1.73 sqM) Est GFR (CKD-EPI)NonAf 77 (>60 ml/min/1.73 sqM) Glucose 112 H (74-99) mg/dL Calcium 9.3 (8.4-10.2) mg/dL CK-MB (CK-2) 1.2 (0.0-2.4) ng/mL Troponin I <0.012 (0.000-0.034) ng/mL Urine Color Urine Appearance (Clear) Urine pH (5.0-8.0) Ur Specific [place] (1.001-1.035) Urine Protein (Negative) Urine Glucose (UA) (Negative) Urine Ketones (Negative) Urine Blood (Negative) Urine Nitrite (Negative) Urine Bilirubin (Negative) Urine Urobilinogen (<2.0) mg/dL Ur Leukocyte Esterase (Negative) 02/12/21 Range/Units 09:23 WBC (3.8-10.6) k/uL RBC (3.80-5.40) m/uL Hgb (11.4-16.0) gm/dL Hct (34.0-46.0) % MCV (80.0-100.0) fL MCH (25.0-35.0) pg MCHC (31.0-37.0) g/dL RDW (11.5-15.5) % Plt Count (150-450) k/uL MPV Neutrophils % (Manual) % Lymphocytes % (Manual) % Monocytes % (Manual) % Eosinophils % (Manual) % Neutrophils # (Manual) (1.3-7.7) k/uL Lymphocytes # (Manual) (1.0-4.8) k/uL Monocytes # (Manual) (0-1.0) k/uL Eosinophils # (Manual) (0-0.7) k/uL Nucleated RBCs (0-0) /100 WBC Manual Slide Review RBC Morphology Sodium (137-145) mmol/L Potassium (3.5-5.1) mmol/L Chloride (98-107) mmol/L Carbon Dioxide (22-30) mmol/L Anion Gap mmol/L BUN (7-17) mg/dL Creatinine (0.52-1.04) mg/dL Est GFR (CKD-EPI)AfAm (>60 ml/min/1.73 sqM) Est GFR (CKD-EPI)NonAf (>60 ml/min/1.73 sqM) Glucose (74-99) mg/dL Calcium (8.4-10.2) mg/dL CK-MB (CK-2) (0.0-2.4) ng/mL Troponin I (0.000-0.034) ng/mL Urine Color Light Yellow Urine Appearance Clear (Clear) Urine pH 6.0 (5.0-8.0) Ur Specific [place] 1.010 (1.001-1.035) Urine Protein Negative (Negative) Urine Glucose (UA) Negative (Negative) Urine Ketones Trace H (Negative) Urine Blood Negative (Negative) Urine Nitrite Negative (Negative) Urine Bilirubin Negative (Negative) Urine Urobilinogen <2.0 (<2.0) mg/dL Ur Leukocyte Esterase Negative (Negative) Disposition Clinical Impression: Suicidal ideation, Back pain Disposition: ADMITTED IP TO THIS HOSP Condition: Fair Referrals: Nancy Chavez MD [Primary Care Provider] - 1-2 days
[2021-02-12] MEDS ORDERED: DIPH,PERTUS(ACELL)TETVAC-LF 0.5 ML VIAL IM ONE (08:58)
[2021-02-12 09:23] LABS: Calcium 9.3 mg/dL (8.4-10.2); Potassium 4.4 mmol/L (3.5-5.1)
[2021-02-12 09:42] LABS: Creatine Kinase MB 1.2 ng/mL (0.0-2.4); Troponin I <0.012 ng/mL (0.000-0.034)
[2021-02-12 09:48] LABS: HCT 38.9 % (34.0-46.0); HGB 13.5 gm/dL (11.4-16.0); MCH 33.5 pg (25.0-35.0); MCHC 34.6 g/dL (31.0-37.0); MCV 97.1 fL (80.0-100.0); Mean Platelet Volume 7.5; Platelet Count 252 k/uL (150-450); RBC 4.01 m/uL (3.80-5.40); RDW 12.4 % (11.5-15.5); WBC 4.2 k/uL (3.8-10.6)
[2021-02-12 09:49] LABS: Appearance,Urine Clear (Clear); Bilirubin,Urine Negative (Negative); Blood,Urine Negative (Negative); Color,Urine Light Yellow; Glucose,Urine (UA) Negative (Negative); Ketones,Urine Trace (Negative); Leukocyte Esterase,Urine Negative (Negative); Nitrite,Urine Negative (Negative); Protein,Urine Negative (Negative); Urobilinogen,Urine <2.0 mg/dL (<2.0)
[2021-02-12 10:37] LABS: Eosinophils # (M) 0.04 k/uL (0-0.7); Lymphocytes # (M) 1.09 k/uL (1.0-4.8); Monocytes # (M) 0.42 k/uL (0-1.0); Neutrophils # (M) 2.65 k/uL (1.3-7.7); Neutrophils % (M) 63 %; Nucleated Red Blood Cells 0 /100 WBC (0-0); Total Cells Counted 100
[2021-02-12] MEDS ORDERED: oxyCODONE-APAP 10-325MG 1 EACH TAB PO STA (11:50)
[2021-02-12] MEDS ORDERED: NALOXONE 0.4 MG/ML 1 ML VIAL IV PRN (14:26)
[2021-02-12] MEDS ORDERED: ACETAMINOPHEN TAB 325 MG TAB PO PRN (14:26)
[2021-02-12] MEDS: HYDROmorphone 1 MG/ML 1 ML SYRINGE IVP PRN ×3 (14:52→21:17)
[2021-02-12] MEDS: SODIUM CHLORIDE 0.9% 1,000 ML IV SCH (14:54)
[2021-02-12] MEDS: NICOTINE 14MG/24HR PATCH TRANSDERM SCH (18:07)
[2021-02-12] MEDS: ONDANSETRON 4 MG/2 ML VIAL IVP PRN (20:02)
[2021-02-12] MEDS: PANTOPRAZOLE 40 MG/10 ML VIAL IVP SCH (22:15)
--- NOTE | 2021-02-12 23:49 | P.HPIM ---
History of Present Illness H&P Date: 02/12/21 Chief Complaint: Back pain Patient is a 70-year-old male with a known history of coronary artery disease with stent placement, diabetes type 2, hyperlipidemia, history of [place], history of right breast cancer in December 2019 currently on chemo, status post radiation chronic back pain, anxiety/bipolar disorder and currently everyday smoker presents to ER with complaints of lower back pain and abdominal pain. Patient had cardiac catheterization on 02/06/2021 due to mildly elevated troponin level. Showed no significant coronary artery disease. Patient is complaining of lower back pain. Patient felt more anxious and made comments about coming suicide as per his son. She lives alone and does not have any weapons at home. Patient states that I can do this anymore. No hallucinations. Patient has been very anxious when her son called her. Son called EMS and was brought to the hospital. Denied any complains of chest pain or shortness of breath. No fever no chills. No cough or sputum production. Patient had MRI on 09/14/2020 which showed subtle grade 1 spondylolisthesis L3- L4 as well as L4-L5 patient has moderate to mild stenosis L4-L5 centrally as well as mild/moderate to severe stenosis L3-L4. Review of Systems Constitutional: Patient denies any fever or chills . No generalized weakness or weight loss. Abdomen: Patient denied nausea vomiting and diarrhea and abdominal pain. Cardiovascular: Patient denies any chest pain or short of breath no palpitations. Respiratory: patient denied any cough is from production. No shortness of breath Neurologic: Patient denied any numbness or tingling headache. Musculoskeletal: Does complain of lower back pain. Complete review of systems could not be obtained from the patient. Past Medical History Past Medical History: Coronary Artery Disease (CAD), Diabetes Mellitus, GERD/Reflux, Hyperlipidemia, Myocardial Infarction ([place]) Additional Past Medical History / Comment(s): Dx rt breast CA December 2019-takes chemo Po, radiation completed 1 month ago, fx ankle November 2019-has boot (states boot cannot be removed)on rt ankle-uses walker and WBAT, hx7-16-15 pancreatitis. other MIGRAINES, chronic back pain, gout Last Myocardial Infarction Date:: unk History of Any Multi-Drug Resistant Organisms: None Reported Past Surgical History: Breast Surgery, Heart Catheterization With Stent, Orthopedic Surgery Additional Past Surgical History / Comment(s): ORIF rt ankle , EGD/COLONOSCOPY, bone marrow bx-neg, TOTAL OF 3 CARDIAC STENTS, breast bx; right breast lumpectomy w/AND 01/30/20; Past Anesthesia/Blood Transfusion Reactions: No Reported Reaction Additional Past Anesthesia/Blood Transfusion Reaction / Comment(s): clausterphobia Date of Last Stent Placement:: UNK Past Psychological History: Anxiety, Bipolar Smoking Status: Current every day smoker Past Alcohol Use History: None Reported Past Drug Use History: None Reported - Past Family History Son(s) Family Medical History: Cancer Father Family Medical History: Diabetes Mellitus, Myocardial Infarction ([place]) Mother Family Medical History: Cancer, Myocardial Infarction ([place]) Medications and Allergies Home Medications Medication Instructions Recorded Confirmed Type PARoxetine HCL [Paxil] 40 mg PO DAILY 06/24/16 02/12/21 History Isosorbide Mononitrate ER [Imdur] 30 mg PO DAILY 09/02/17 02/12/21 History Omeprazole 20 mg PO DAILY 01/29/20 02/12/21 History OXcarbazepine [Trileptal] 300 mg PO BID 02/19/20 02/12/21 History Aspirin EC [Ecotrin Low Dose] 81 mg PO DAILY 09/12/20 02/12/21 History Letrozole [Femara] 2.5 mg PO DAILY 30 Days #30 tab 09/18/20 02/12/21 Rx clonazePAM [KlonoPIN] 1 mg PO BID PRN 02/05/21 02/12/21 History traZODone HCL [Desyrel] 100 mg PO HS 02/05/21 02/12/21 History Spironolactone [Aldactone] 25 mg PO DAILY #30 tab 02/07/21 02/12/21 Rx carvediloL [Coreg] 6.25 mg PO AC-BID #60 tab 02/07/21 02/12/21 Rx dronabinoL [Marinol] 2.5 mg PO AC-BID #20 cap 02/07/21 02/12/21 Rx lisinopriL [Zestril] 5 mg PO DAILY #30 tab 02/07/21 02/12/21 Rx Allergies Allergy/AdvReac Type Severity Reaction Status Date / Time codeine AdvReac Nausea & Verified 02/12/21 11:30 Vomiting Latex, Natural Rubber AdvReac Rash/Hives/ Verified 02/12/21 11:30 itching Physical Exam Vitals: Vital Signs Temp Pulse Resp BP Pulse Ox 02/12/21 20:46 97.6 F 77 22 138/71 100 02/12/21 18:09 69 16 144/67 100 02/12/21 15:33 89 16 136/79 99 02/12/21 08:05 97.6 F 64 20 141/77 100 Intake and Output 02/12/21 02/12/21 02/12/21 06:59 14:59 22:59 Other: Weight 58.967 kg PHYSICAL EXAMINATION: Patient is lying in the bed comfortably, no acute distress, awake alert and oriented.. Anxious. HEENT: Normocephalic. Neck is supple. Pupils reactive. Nostrils clear. Oral cavity is moist. Neck reveals no JVD, carotid bruits, or thyromegaly. CHEST EXAMINATION: Trachea is central. Symmetrical expansion. Lung scott clear to auscultation and percussion. CARDIAC: Normal S1, S2 with no gallops. No murmurs ABDOMEN: Soft. Bowel sounds normal. No organomegaly. No abdominal bruits. Extremities: reveal no edema. No clubbing or cyanosis Neurologically awake, alert, oriented x3 with well-coordinated movements. No focal deficits noted Skin: No rash or skin lesions. Psychiatric: Coperative. Nonsuicidal currently. Musculoskeletal: No joint swelling or deformity. Normal range of motion. Results CBC & Chem 7: 02/12/21 08:39 02/12/21 08:39 Labs: Abnormal Lab Results - Last 24 Hours (Table) 02/12/21 02/12/21 Range/Units 08:39 09:23 Sodium 127 L (137-145) mmol/L Chloride 97 L (98-107) mmol/L Carbon Dioxide 21 L (22-30) mmol/L Glucose 112 H (74-99) mg/dL Urine Ketones Trace H (Negative) Thrombosis Risk Factor Assmnt - DVT/VTE Prophylaxis DVT/VTE Prophylaxis: Pharmacologic Prophylaxis ordered Assessment and Plan Assessment: Acute on chronic low back pain. Patient had MRI on 09/14/2020 showed L3-L4 moderate central stenosis and L4-L5 mild stenosis with grade 1 anterior listh esis Social ideation and severe anxiety Recent admission with dizziness and mildly elevated troponin level. Status post cardiac catheterization. Did not require intervention. Coronary artery disease with history of stent placement Chronic CHF with systolic dysfunction ejection fraction 20-25%. Diabetes type 2. Was hypoglycemic during last admission. GERD Anxiety/depression Hyperlipidemia History of [place] History of right breast cancer in December 2019 takes oral chemo. Status post radiation. History of migraine headaches History of gout Anxiety/bipolar disorder Currently everyday smoker Plan: Patient will be continued on pain management with Toradol and [place] and Dilaudid IV. Orthopedic surgery was consulted. Psychiatry evaluation due to severe anxiety and suicidal ideation. Next and continue with aspirin, Coreg, statins. Also on lisinopril. Continue with letrozole Continue the home medications and insulin sliding scale as needed. Follow up closely. Prognosis guarded with multiple medical problems and comorbid conditions. Time with Patient: Greater than 30
[2021-02-13] MEDS: HEPARIN SODIUM,PORCINE/PF 5,000 UNIT/0.5 ML SYRINGE SQ SCH ×3 (01:04→15:25)
[2021-02-13] MEDS: HYDROmorphone 1 MG/ML 1 ML SYRINGE IVP PRN ×3 (04:00→15:23)
[2021-02-13 04:14] LABS: Urine Alcohol Negative (Negative); Urine Barbiturate Negative (Negative); Urine Cocaine Negative (Negative); Urine Methadone Negative (Negative); Urine Opiates Positive (Negative); Urine Phencyclidine Negative (Negative)
[2021-02-13] MEDS ORDERED: KETOROLAC 15 MG/ML 1 ML VIAL IVP STA (05:20)
[2021-02-13] MEDS: ONDANSETRON 4 MG/2 ML VIAL IVP PRN (07:25)
[2021-02-13] MEDS: PARoxetine 20 MG TAB PO SCH (07:27)
[2021-02-13] MEDS: lisinopriL 5 MG TAB PO SCH (07:27)
[2021-02-13] MEDS: SPIRONOLACTONE 25 MG TAB PO SCH (07:27)
[2021-02-13] MEDS: ISOSORBIDE MONONITRATE ER 30 MG TAB.ER.24H PO SCH (07:28)
[2021-02-13] MEDS: ASPIRIN 81 MG PO SCH ×2 (07:28→07:33)
[2021-02-13] MEDS: carvediloL 6.25 MG TAB PO SCH ×2 (07:28→17:16)
[2021-02-13] MEDS: OXcarbazepine 300 MG TAB PO SCH ×2 (07:29→21:19)
[2021-02-13] MEDS: PANTOPRAZOLE 40 MG/10 ML VIAL IVP SCH (07:29)
[2021-02-13] MEDS: LETROZOLE 2.5 MG TAB PO SCH (07:29)
[2021-02-13] MEDS ORDERED: PANTOPRAZOLE 40 MG TABLET PO SCH (07:30)
[2021-02-13] MEDS: NICOTINE 14MG/24HR PATCH TRANSDERM SCH (08:19)
[2021-02-13] MEDS: CYCLOBENZAPRINE 10 MG TAB PO PRN ×2 (08:19→22:17)
[2021-02-13] MEDS: GABAPENTIN 300 MG CAP PO SCH ×3 (08:19→21:19)
--- NOTE | 2021-02-13 10:07 | P.CNOR ---
History of Present Illness - [facility] Consult date: 02/13/21 Consult reason: low back pain History of present illness: Patient is a 70-year-old female who was brought to [facility] yesterday by EMS with regards to introduce below back pain/lower abdominal pain. After reviewing emergency room's note, there was concern from the patient's family that she was suicidal. Patient wasn't admitted under internal medicine with our orthopedic team on consult for her low back pain. Patient was evaluated today at bedside, Dr. Butler and was also available to examine the patient. She has a chronic history of low back pain, she has been seeing the face painter at [facility]. They have done 2 separate lumbar epidural injections, she was actually scheduled to see them next week for further treatment. When reviewing their notes from early January 2021, she is getting very short-term relief with the epidural steroid injections in the lumbar spine region. There was discussion of possible sacroiliac joint injections bilaterally versus further lumbar procedures. On exam today, she is resting in her hospital bed. Patient is very emotional and agitated, this is also noted in her emergency room note. It was very difficult to determine her history of present illness along with review of systems due to her current medical state. She states that she gets pain throughout the entire low back, there is some radiation into the groin and buttock region. She is currently denying any numbness or tingling in the bilateral lower extremities or upper extremities. She is denying any acute cervical pain at this time. She denies any loss of bowel or bladder function at this time. Review of Systems Constitutional: Reports as per [facility] Past Medical History Past Medical History: Coronary Artery Disease (CAD), Diabetes Mellitus, GERD/Reflux, Hyperlipidemia, Myocardial Infarction ([place]) Additional Past Medical History / Comment(s): Dx rt breast CA December 2019-takes chemo Po, radiation completed 1 month ago, fx ankle November 2019-has boot (states boot cannot be removed)on rt ankle-uses walker and WBAT, hx7-16-15 pancreatitis. other MIGRAINES, chronic back pain, gout Last Myocardial Infarction Date:: unk History of Any Multi-Drug Resistant Organisms: None Reported Past Surgical History: Breast Surgery, Heart Catheterization With Stent, Orthope dic Surgery Additional Past Surgical History / Comment(s): ORIF rt ankle -2020, EGD/COLONOSCOPY, bone marrow bx-neg, TOTAL OF 3 CARDIAC STENTS, breast bx; right breast lumpectomy w/AND 01/30/20; Past Anesthesia/Blood Transfusion Reactions: No Reported Reaction Additional Past Anesthesia/Blood Transfusion Reaction / Comm: clausterphobia Date of Last Stent Placement:: UNK Past Psychological History: Anxiety, Bipolar Smoking Status: Current every day smoker Past Alcohol Use History: None Reported Past Drug Use History: None Reported - Past Family History Son(s) Family Medical History: Cancer Father Family Medical History: Diabetes Mellitus, Myocardial Infarction ([place]) Mother Family Medical History: Cancer, Myocardial Infarction ([place]) Medications and Allergies Home Medications Medication Instructions Recorded Confirmed Type PARoxetine HCL [Paxil] 40 mg PO DAILY 06/24/16 02/12/21 History Isosorbide Mononitrate ER [Imdur] 30 mg PO DAILY 09/02/17 02/12/21 History Omeprazole 20 mg PO DAILY 01/29/20 02/12/21 History OXcarbazepine [Trileptal] 300 mg PO BID 02/19/20 02/12/21 History Aspirin EC [Ecotrin Low Dose] 81 mg PO DAILY 09/12/20 02/12/21 History Letrozole [Femara] 2.5 mg PO DAILY 30 Days #30 tab 09/18/20 02/12/21 Rx clonazePAM [KlonoPIN] 1 mg PO BID PRN 02/05/21 02/12/21 History traZODone HCL [Desyrel] 100 mg PO HS 02/05/21 02/12/21 History Spironolactone [Aldactone] 25 mg PO DAILY #30 tab 02/07/21 02/12/21 Rx carvediloL [Coreg] 6.25 mg PO AC-BID #60 tab 02/07/21 02/12/21 Rx dronabinoL [Marinol] 2.5 mg PO AC-BID #20 cap 02/07/21 02/12/21 Rx lisinopriL [Zestril] 5 mg PO DAILY #30 tab 02/07/21 02/12/21 Rx Allergies Allergy/AdvReac Type Severity Reaction Status Date / Time codeine AdvReac Nausea & Verified 02/12/21 11:30 Vomiting Latex, Natural Rubber AdvReac Rash/Hives/ Verified 02/12/21 11:30 itching Physical Examination Gen: AOx3, NAD VSS stable at this time Integument: No open lesions or sores visualized throughout the cervical, thoracic, lumbar spine Palpation: She is nontender with palpation throughout the midline and paraspinal region of the cervical or thoracic spine, normal discomfort in the paraspinal region of the lumbar spine ROM: Range of motion in all major muscle groups bilateral upper extremities are intact Range of motion LX groups of bilateral lower extremity is intact Sensory Exam: Senory exam to light touch is intact C5-T1 Senosry exam to light touch is intact L2-S1 Motor: 5 out of 5 strength is appreciated in the bilateral upper extremities and testing shoulder abduction, forward elevation, elbow extension, elbow flexion, wrist extension, wrist flexion, and intrinsics 5 out of 5 strength is appreciated in the bilateral lower extremities with hip flexion, knee extension, knee flexion, plantar flexion, dorsiflexion, EHL, FHL Reflexes: Reflexes in the bilateral upper and lower extremities were unobtainable due to the patient's current anxious state Negative Suzi's bilaterally\ Negative Babinski bilaterally No clonus appreciated bilaterally Special Test: Negative straight leg raise bilaterally Logroll maneuver the bilateral lower extremities reproduces no groin pain Results - Labs Labs: Abnormal Lab Results - Last 24 Hours (Table) 02/12/21 Range/Units 09:23 Urine Opiates Screen Positive A (Negative) ng/mL U Cannabinoids Screen Positive A (Negative) ng/mL H & H 02/12/21 Range/Units 08:39 Hgb 13.5 (11.4-16.0) gm/dL Hct 38.9 (34.0-46.0) % Result Diagrams: 02/12/21 08:39 02/12/21 08:39 Assessment and Plan Assessment: Chronic low back pain Multilevel lumbar degenerative disc disease, spondylosis and facet arthropathy Anxiety Suicidal ideations Multiple medical comorbidities Plan: Imaging: Reports were reviewed of the CT abdomen and pelvis along with MRI of the lumbar spine and bone scan from August 2020. Report demonstrated the evidence lumbar degenerative disc disease, spondylosis changes along with facet arthropathy throughout the lumbar spine. There were no obvious metastatic changes on bone scan. Plan: Dr. Butler was available today at bedside to discuss treatment options with the patient. Medications were ordered from our service, this to include gabapentin 3 mg 3 times a day, Flexeril 10 mg 3 times a day as needed, Toradol 50 mg every 6 hours. Recommend anti-anxiety medications to be given via primary medical service Psychiatric consult recommended at this time Consult has been placed for pain management Will review lumbar spine MRI from August 2020, depending on Dr. Butler's interpretation, may consider further imaging PT/OT evaluation Other forensic medical examiner and recommendations Further recommendations to follow Time with Patient: Less than 30
[2021-02-13 11:15] LABS: Glucose,Whole Blood 155 mg/dL (75-99)
[2021-02-13] MEDS: KETOROLAC 15 MG/ML 1 ML VIAL IVP SCH ×2 (11:20→17:16)
[2021-02-13 12:05] LABS: Basophils # (A) 0.04 X 10*3/uL (0.00-0.10); Basophils % (A) 0.5 %; Eosinophils # (A) 0.01 X 10*3/uL (0.04-0.35); Eosinophils % (A) 0.1 %; HCT 37.7 % (37.2-46.3); HGB 13.5 g/dL (12.0-15.0); Lymphocytes # (A) 1.51 X 10*3/uL (0.90-5.00); Lymphocytes % (A) 17.1 %; MCHC 35.8 g/dL (32.0-37.0); Monocytes # (A) 0.69 X 10*3/uL (0.20-1.00); Monocytes % (A) 7.8 %; Neutrophils # (A) 6.56 X 10*3/uL (1.80-7.70); Neutrophils % (A) 74.2 %; Platelet Count 311 X 10*3/uL (140-440); RBC 3.97 X 10*6/uL (4.10-5.20); RDW 12.2 % (11.5-14.5); WBC 8.84 X 10*3/uL (4.50-10.00)
[2021-02-13] MEDS: SODIUM CHLORIDE 0.9% 1,000 ML IV SCH (15:26)
--- NOTE | 2021-02-13 15:42 | P.CN ---
Psychiatric Consult - . Consult date: 02/13/21 Consult:: 02/13/21 15:16 Patient was seen for a psych consult regarding suicidal ideations. She was recently admitted to surgical floor since she had complained of worsening of back pain and abdominal pain. Apparently she told her sons who had come to see her, that she could not bear the pain anymore and wished she was run over by a [employer] train. She said she was diagnosed with bipolar disorder about 50 years ago. She is on Paxil 40 mg a day Trileptal 300 mg twice a day trazodone 100 mg at bedtime Klonopin 1 mg twice a day when necessary. She said she has been taking only 1 mg of Klonopin once a day and not twice a day. Her home medication does not include narcotics. Her toxicology report is positive for opiates and cannabinoids and negative for benzodiazepines. Chemistry shows sodium of 127 and chloride of 97. Since she came to the hospital she is on Dilaudid on a when necessary basis and Neurontin 300 mg 3 times a day in addition to her home medications. Patient insists that she is not suicidal, is a joker and said what she said without meaning it in reference to suicidal ideations. She said her mood has been stable, did not have any manic or depressive episodes for a few years now and is doing well mental health sánchez. This is a white female wearing hospital gowns and was seen sitting in her hospital bed. She is polite cheerful and cooperative. She does not show any psychomotor agitation or retardation. Her speech is spontaneous relevant and goal-directed. She does not show any poverty of speech, pressured speech or flight of ideas. Her mood is cheerful and affect is appropriate to the thought content. She denies hallucinations and delusional thinking. She also denies suicide and homicide thoughts. She said several times that she is a joker and should not have said what she did in regards to suicidal ideas. She insisted that she will never say anything like this unless she is really suicidal. She is well oriented with good memory concentration and general fund of knowledge. Assessment: Does not appear to be suicide risk. Toxicology is negative for benzodiazepines when she says she has been taking 1 Klonopin every day. This shows questionable use of benzodiazepines. Her home medications do not include narcotics or cannabis. But her toxicology is positive for opiates and cannabis. This makes me suspect that she is abusing narcotics and cannabis. She has hyponatremia which is one of the delayed side effects of Trileptal which may have caused some confusion in her thinking. Recommendations: Her suicide supervision can be discontinued. Use of Neurontin, benzodiazepines and opiates can lead to unwanted worsening of her mental status and increased substance abuse. Use of Trileptal has to be reviewed and should be switched to another mood stabilizer without hyponatremia as a side effect. She does not need any further psychiatric consultation or treatment in psychiatric unit at this point. She can be discharged with outpatient follow-up with the above recommendation in mind when she is medically cleared.
[2021-02-13 20:17] LABS: Glucose,Whole Blood 158 mg/dL (75-99)
[2021-02-13 20:52] LABS: African American GFR (CKD) 65.2 (60.0-200.0); Anion Gap 22.5 mmol/L (4.00-12.00); Calcium 9.7 mg/dL (8.7-10.3); Carbon Dioxide 13.5 mmol/L (21.6-31.8); Non-African American GFR(CKD) 56.2 (60.0-200.0); Potassium 4.5 mmol/L (3.5-5.5)
[2021-02-13] MEDS: traZODone HCL 50 MG TAB PO SCH (21:19)
[2021-02-14] MEDS: KETOROLAC 15 MG/ML 1 ML VIAL IVP SCH ×5 (00:06→23:25)
[2021-02-14] MEDS: HEPARIN SODIUM,PORCINE/PF 5,000 UNIT/0.5 ML SYRINGE SQ SCH ×4 (00:08→23:25)
[2021-02-14 07:35] LABS: Glucose,Whole Blood 135 mg/dL (75-99)
[2021-02-14 07:56] VITALS: RESP 16
[2021-02-14] MEDS: ASPIRIN 81 MG PO SCH (08:15)
[2021-02-14] MEDS: PANTOPRAZOLE 40 MG/10 ML VIAL IVP SCH (08:15)
[2021-02-14] MEDS: GABAPENTIN 300 MG CAP PO SCH ×3 (08:15→22:07)
[2021-02-14] MEDS: PARoxetine 20 MG TAB PO SCH (08:15)
[2021-02-14] MEDS: SPIRONOLACTONE 25 MG TAB PO SCH (08:16)
[2021-02-14] MEDS: OXcarbazepine 300 MG TAB PO SCH ×2 (08:16→22:07)
[2021-02-14] MEDS: NICOTINE 14MG/24HR PATCH TRANSDERM SCH (08:16)
[2021-02-14] MEDS: LETROZOLE 2.5 MG TAB PO SCH (08:18)
[2021-02-14] MEDS: CYCLOBENZAPRINE 10 MG TAB PO PRN (08:25)
[2021-02-14] MEDS: lisinopriL 5 MG TAB PO SCH (09:29)
[2021-02-14] MEDS: carvediloL 6.25 MG TAB PO SCH ×2 (09:29→17:07)
[2021-02-14] MEDS: ISOSORBIDE MONONITRATE ER 30 MG TAB.ER.24H PO SCH (09:29)
[2021-02-14] MEDS: SODIUM CHLORIDE 0.9% 1,000 ML IV SCH (09:30)
[2021-02-14] MEDS ORDERED: LACTATED RINGERS 1,000 ML IV ONE (10:20)
--- NOTE | 2021-02-14 10:32 | P.CONS ---
History of Present Illness - Reason for Consult Consult date: 02/14/21 - Chief Complaint Lower back and groin pain - History of Present Illness This is a 70-year-old lady with history of chronic lower back pain with radiation to the groins anteriorly bilaterally more on the right side than the left side. The patient gets numbness and tingling in the lower extremities occasionally mostly in the thighs. She has a history of lumbar stenosis and injection of steroids in the lumbar space previously area the patient states that the epidural did not help her pain. Her pain gets worse by activities and improves by resting. He takes Tylenol for her pain at home. Past Medical History Past Medical History: Coronary Artery Disease (CAD), Diabetes Mellitus, GERD/Reflux, Hyperlipidemia, Myocardial Infarction (GA) Additional Past Medical History / Comment(s): Dx rt breast CA December 2019-takes chemo Po, radiation completed 1 month ago, fx ankle November 2019-has boot (states boot cannot be removed)on rt ankle-uses walker and WBAT, hx7-16-15 pancreatitis. other MIGRAINES, chronic back pain, gout Last Myocardial Infarction Date:: unk History of Any Multi-Drug Resistant Organisms: None Reported Past Surgical History: Breast Surgery, Heart Catheterization With Stent, Orthopedic Surgery Additional Past Surgical History / Comment(s): ORIF rt ankle , EGD/COLONOSCOPY, bone marrow bx-neg, TOTAL OF 3 CARDIAC STENTS, breast bx; right breast lumpectomy w/AND 01/30/20; Past Anesthesia/Blood Transfusion Reactions: No Reported Reaction Additional Past Anesthesia/Blood Transfusion Reaction / Comm: clausterphobia Date of Last Stent Placement:: UNK Past Psychological History: Anxiety, Bipolar Smoking Status: Current every day smoker Past Alcohol Use History: None Reported Past Drug Use History: None Reported - Past Family History Son(s) Family Medical History: Cancer Father Family Medical History: Diabetes Mellitus, Myocardial Infarction (GA) Mother Family Medical History: Cancer, Myocardial Infarction (GA) Medications and Allergies Home Medications Medication Instructions Recorded Confirmed Type PARoxetine HCL [Paxil] 40 mg PO DAILY 06/24/16 02/12/21 History Isosorbide Mononitrate ER [Imdur] 30 mg PO DAILY 09/02/17 02/12/21 History Omeprazole 20 mg PO DAILY 01/29/20 02/12/21 History OXcarbazepine [Trileptal] 300 mg PO BID 02/19/20 02/12/21 History Aspirin EC [Ecotrin Low Dose] 81 mg PO DAILY 09/12/20 02/12/21 History Letrozole [Femara] 2.5 mg PO DAILY 30 Days #30 tab 09/18/20 02/12/21 Rx clonazePAM [KlonoPIN] 1 mg PO BID PRN 02/05/21 02/12/21 History traZODone HCL [Desyrel] 100 mg PO HS 02/05/21 02/12/21 History Spironolactone [Aldactone] 25 mg PO DAILY #30 tab 02/07/21 02/12/21 Rx carvediloL [Coreg] 6.25 mg PO AC-BID #60 tab 02/07/21 02/12/21 Rx dronabinoL [Marinol] 2.5 mg PO AC-BID #20 cap 02/07/21 02/12/21 Rx lisinopriL [Zestril] 5 mg PO DAILY #30 tab 02/07/21 02/12/21 Rx Allergies Allergy/AdvReac Type Severity Reaction Status Date / Time codeine AdvReac Nausea & Verified 02/12/21 11:30 Vomiting Latex, Natural Rubber AdvReac Rash/Hives/ Verified 02/12/21 11:30 itching Physical Exam Vitals: Vital Signs Temp Pulse Resp BP Pulse Ox 02/14/21 10:21 63 16 116/73 98 02/14/21 09:25 84 110/67 02/14/21 08:09 93/61 02/14/21 07:55 98.1 F 67 16 92/54 97 02/14/21 02:21 97.8 F 66 18 109/47 98 02/13/21 19:14 98.1 F 78 16 100/57 94 L 02/13/21 14:00 98.4 F 80 16 125/72 90 L 02/13/21 11:17 133/65 Intake and Output 02/13/21 02/14/21 02/14/21 22:59 06:59 14:59 Intake Total 400 Balance 400 Intake: Oral 400 Other: Voiding Method Toilet # Voids 3 2 - EENT Eyes: PERRLA - Neurologic Neuro exam of the lower extremities showed normal and symmetrical muscle strength bilaterally Mild hip pain with internal and external rotation of the hip joints bilaterally Positive Donato's test on the right side and positive tenderness around the sacroiliac joints bilaterally Straight leg raising test is negative bilaterally Postoperative tenderness in the lumbar paravertebral musculature bilaterally Neurologic: CNII-XII intact - Psychiatric Psychiatric: A&O x's 3, appropriate affect, intact judgment & insight Results CBC & Chem 7: 02/13/21 06:30 02/13/21 06:30 Labs: Abnormal Lab Results - Last 24 Hours (Table) 02/13/21 02/13/21 02/13/21 Range/Units 06:30 06:30 11:14 RBC 3.97 L (4.10-5.20) X 10*6/uL MCH 34.0 H (27.0-32.0) pg MPV 9.0 L (9.5-12.2) fL Eosinophils # 0.01 L (0.04-0.35) X 10*3/uL Sodium 133 L (135-145) mmol/L Carbon Dioxide 13.5 L (21.6-31.8) mmol/L Anion Gap 22.50 H (4.00-12.00) mmol/L Est GFR (CKD-EPI)NonAf 56.2 L (60.0-200.0) Glucose 163 H (70-110) mg/dL POC Glucose (mg/dL) 155 H (75-99) mg/dL 02/13/21 02/14/21 Range/Units 20:15 07:35 RBC (4.10-5.20) X 10*6/uL MCH (27.0-32.0) pg MPV (9.5-12.2) fL Eosinophils # (0.04-0.35) X 10*3/uL Sodium (135-145) mmol/L Carbon Dioxide (21.6-31.8) mmol/L Anion Gap (4.00-12.00) mmol/L Est GFR (CKD-EPI)NonAf (60.0-200.0) Glucose (70-110) mg/dL POC Glucose (mg/dL) 158 H 135 H (75-99) mg/dL Assessment and Plan Plan: This is a 70-year-old lady with history of lower back pain and groin pain. The patient has lumbar stenosis however she did not respond to lumbar epidural steroid injection previously. She does have clinical signs for right sacroiliitis and I will schedule her to have right sacroiliac joint steroid injection under fluoroscopic guidance. The procedure was explained to the patient and her questions were answered.
[2021-02-14] MEDS ORDERED: TRIAMCINOLONE ACETONIDE 40 MG/ML 1 ML VIAL ONE (11:19)
[2021-02-14] MEDS ORDERED: ROPIVACAINE 5MG/ML 20ML VIAL ONE (11:19)
--- NOTE | 2021-02-14 11:23 | P.PN ---
Subjective Progress Note Date: 02/14/21 Principal diagnosis: Chronic low back pain, right-sided sacroiliitis, multiple medical comorbidities Patient was evaluated today at bedside, Dr. Butler was also available to e xamine the patient. Patient is sitting up in bed with her feet over the edge eating breakfast. Patient is more comfortable today, the severe amount of anxiousness that was present yesterday seems resolved. Psychiatric did evaluate the patient, a suicidal precautions were lifted on the patient. She states that she still is having discomfort in her low back region, but is significantly improved. She is complaining of right-sided posterior buttock pain, in the general area of the SI joint. Patient was started on gabapentin 300 mg 3 times a day along with Flexeril 10 mg 3 times a day as needed. She also has been utilizing the IV Toradol. Patient currently denies any headaches, lightheadedness, chest pain or shortness of breath. Patient denies any loss of bowel or bladder function currently. Objective - Vital Signs Vital signs: Vital Signs Temp 98.1 F 02/14/21 07:55 Pulse 63 02/14/21 10:21 Resp 16 02/14/21 10:21 BP 116/73 02/14/21 10:21 Pulse Ox 98 02/14/21 10:21 Intake & Output 02/13/21 02/14/21 02/14/21 18:59 06:59 18:59 Intake Total 400 Balance 400 Intake: Oral 400 Other: Voiding Method Toilet # Voids 3 2 - Exam Gen: AOx3, NAD VSS stable at this time Integument: No open lesions or sores visualized throughout the cervical, thoracic, lumbar spine Palpation: She is nontender with palpation throughout the midline and paraspinal region of the cervical or thoracic spine, normal discomfort in the paraspinal region of the lumbar spine Tenderness with palpation near the SI joint on the right side ROM: Range of motion in all major muscle groups bilateral upper extremities are intact Range of motion LX groups of bilateral lower extremity is intact Sensory Exam: Senory exam to light touch is intact C5-T1 Senosry exam to light touch is intact L2-S1 Motor: 5 out of 5 strength is appreciated in the bilateral upper extremities and testing shoulder abduction, forward elevation, elbow extension, elbow flexion, wrist extension, wrist flexion, and intrinsics 5 out of 5 strength is appreciated in the bilateral lower extremities with hip flexion, knee extension, knee flexion, plantar flexion, dorsiflexion, EHL, FHL Reflexes: Reflexes in the bilateral upper and lower extremities were unobtainable due to the patient's current anxious state Negative Suzi's bilaterally\ Negative Babinski bilaterally No clonus appreciated bilaterally Special Test: Negative straight leg raise bilaterally Logroll maneuver the bilateral lower extremities reproduces no groin pain - Labs CBC & Chem 7: 02/13/21 06:30 02/13/21 06:30 Labs: Abnormal Lab Results - Last 24 Hours (Table) 02/13/21 02/13/21 02/13/21 Range/Units 06:30 06:30 20:15 RBC 3.97 L (4.10-5.20) X 10*6/uL MCH 34.0 H (27.0-32.0) pg MPV 9.0 L (9.5-12.2) fL Eosinophils # 0.01 L (0.04-0.35) X 10*3/uL Sodium 133 L (135-145) mmol/L Carbon Dioxide 13.5 L (21.6-31.8) mmol/L Anion Gap 22.50 H (4.00-12.00) mmol/L Est GFR (CKD-EPI)NonAf 56.2 L (60.0-200.0) Glucose 163 H (70-110) mg/dL POC Glucose (mg/dL) 158 H (75-99) mg/dL 02/14/21 Range/Units 07:35 RBC (4.10-5.20) X 10*6/uL MCH (27.0-32.0) pg MPV (9.5-12.2) fL Eosinophils # (0.04-0.35) X 10*3/uL Sodium (135-145) mmol/L Carbon Dioxide (21.6-31.8) mmol/L Anion Gap (4.00-12.00) mmol/L Est GFR (CKD-EPI)NonAf (60.0-200.0) Glucose (70-110) mg/dL POC Glucose (mg/dL) 135 H (75-99) mg/dL Assessment and Plan Assessment: Chronic low back pain Multilevel lumbar degenerative disc disease, spondylosis and facet arthropathy Right-sided sacroiliitis Anxiety Multiple medical comorbidities Plan: Plan: No orthopedic spine surgery recommended at this time Pain management did evaluate the patient, she is scheduled for a steroid injection of the right sacroiliac joint today Continue use of the gabapentin along with Flexeril. Recommend transition of Toradol to an oral anti-inflammatory Other medical doctor nuclear medicine recommendations Recommend follow-up in the outpatient setting with Dr. Butler Time with Patient: Less than 30
--- NOTE | 2021-02-14 11:34 | P.PCN ---
Date of Procedure: 02/14/21 Surgeon: Bennie Gee Pathology: none sent Condition: stable Disposition: PACU Description of Procedure: Preoperative diagnoses= sacroiliac joint dysfunction and sacroiliitis on the r ight side Postoperative diagnoses= same as preoperative diagnosis. Procedure= sacroiliac joint steroid injection under fluoroscopic guidance. Anesthesia= local anesthesia only with lidocaine 1% Estimated blood loss=minimal. Procedure indication= the patient had a history of severe chronic low back pain, diagnosed with sacroiliitis and lumbar sacral facet arthropathy unresponsive to conservative treatment. Procedure description= the patient was seen and identified in the preoperative holding area, risks and benefits and alternative of the procedure and possible complications discussed with the patient, patient signed the consent. an IV was started, and vital signs were monitored and were stable throughout the procedure, patient was placed in the prone position or table and the lumbosacral area was prepped and draped with a sterile fashion, vital signs were closely monitored during the procedure.The sacroiliac joint was identified on the AP view of fluoroscopy then the C-arm was tilted to the contralateral oblique position to superimpose the anterior and posterior joint lines on each other and to have a unified joint line with the target point at the inferior one third of this line. I used 22-gauge 3-1/2 inch Quincke spinal needle for this procedure and after getting into the sacroiliac joint I injected 40 mg of Kenalog +2 MLS of Ropivacaine 0.5%. Patient tolerated the procedure well without any complication, The patient returned to supine position after the back was cleaned and a Band- Aid applied, the patient transported to recovery room in stable condition and he was monitored for 30 minutes before she was discharged home in stable condition . patient will follow up with the pain clinic in a few weeks. A copy of the needle placement was saved to the C-arm machine.
--- NOTE | 2021-02-14 11:45 | FL ---
Fluoroscopy History: Si Inj 4sec fluoro time 1 image to pacs
--- NOTE | 2021-02-14 11:51 | P.PN ---
Subjective Progress Note Date: 02/13/21 Principal diagnosis: Acute on chronic back pain Depression and suicidal ideation on admission Patient is a 70-year-old male with a known history of coronary artery disease with stent placement, diabetes type 2, hyperlipidemia, history of [place], history of right breast cancer in December 2019 currently on chemo, status post radiation chronic back pain, anxiety/bipolar disorder and currently everyday smoker presents to ER with complaints of lower back pain and abdominal pain. Patient had cardiac catheterization on 02/06/2021 due to mildly elevated troponin level. Showed no significant coronary artery disease. Patient is complaining of lower back pain. Patient felt more anxious and made comments about coming suicide as per his son. She lives alone and does not have any weapons at home. Patient states that I can do this anymore. No hallucinations. Patient has been very anxious when her son called her. Son called EMS and was brought to the hospital. Denied any complains of chest pain or shortness of breath. No fever no chills. No cough or sputum production. Patient had MRI on 09/14/2020 which showed subtle grade 1 spondylolisthesis L3- L4 as well as L4-L5 patient has moderate to mild stenosis L4-L5 centrally as well as mild/moderate to severe stenosis L3-L4. 02/13/2021 Patient is currently resting in bed comfortably. Back pain is better. No complaints of chest pain or shortness breath. Patient was seen by orthopedic surgery was to continue Toradol, gabapentin and Flexeril. Patient was seen by psychiatric. Patient does not appear to be suicide risk at this time. Sitter has been discontinued. Trileptal may be causing confusion due to hyponatremia. Recommend switching to another more stabilizer without hyponatremia as a side effect. Patient is m edically cleared from psychiatric standpoint. Hyponatremia is improving with sodium level 133 and potassium 4.5 chloride 97 BUN 17 and creatinine 1.0 Patient is otherwise tolerating oral diet. No nausea vomiting or abdominal pain or diarrhea. Current medications reviewed. Objective - Vital Signs Vital signs: Vital Signs Temp 98.4 F 02/13/21 14:00 Pulse 80 02/13/21 14:00 Resp 16 02/13/21 14:00 BP 125/72 02/13/21 14:00 Pulse Ox 90 L 02/13/21 14:00 Intake & Output 02/13/21 02/13/21 02/14/21 06:59 18:59 06:59 Intake Total 400 Balance 400 Intake: Oral 400 Other: # Voids 1 3 - Exam PHYSICAL EXAMINATION: Patient is lying in the bed comfortably, no acute distress, awake alert and oriented.. Anxious. HEENT: Normocephalic. Neck is supple. Pupils reactive. Nostrils clear. Oral cavity is moist. Neck reveals no JVD, carotid bruits, or thyromegaly. CHEST EXAMINATION: Trachea is central. Symmetrical expansion. Lung scott clear to auscultation and percussion. CARDIAC: Normal S1, S2 with no gallops. No murmurs ABDOMEN: Soft. Bowel sounds normal. No organomegaly. No abdominal bruits. Extremities: reveal no edema. No clubbing or cyanosis Neurologically awake, alert, oriented x3 with well-coordinated movements. No focal deficits noted Skin: No rash or skin lesions. Psychiatric: Coperative. Nonsuicidal currently. Musculoskeletal: No joint swelling or deformity. Normal range of motion. - Labs CBC & Chem 7: 02/13/21 06:30 02/13/21 06:30 Labs: Abnormal Lab Results - Last 24 Hours (Table) 02/12/21 02/13/21 02/13/21 Range/Units 09:23 06:30 11:14 RBC 3.97 L (4.10-5.20) X 10*6/uL MCH 34.0 H (27.0-32.0) pg MPV 9.0 L (9.5-12.2) fL Eosinophils # 0.01 L (0.04-0.35) X 10*3/uL POC Glucose (mg/dL) 155 H (75-99) mg/dL Urine Opiates Screen Positive A (Negative) ng/mL U Cannabinoids Screen Positive A (Negative) ng/mL Assessment and Plan Assessment: Acute on chronic low back pain. Patient had MRI on 09/14/2020 showed L3-L4 moderate central stenosis and L4-L5 mild stenosis with grade 1 anterior listhesis Social ideation and severe anxiety Hyponatremia likely hypervolemic and medications/Trileptal Recent admission with dizziness and mildly elevated troponin level. Status post cardiac catheterization. Did not require intervention. Coronary artery disease with history of stent placement Chronic CHF with systolic dysfunction ejection fraction 20-25%. Diabetes type 2. Was hypoglycemic during last admission. GERD Anxiety/depression Hyperlipidemia History of [place] History of right breast cancer in December 2019 takes oral chemo. Status post radiation. History of migraine headaches History of gout Anxiety/bipolar disorder Currently everyday smoker Plan: Patient will be continued on pain management with Toradol and Winston and Dilaudid IV. Orthopedic surgery is following. Pain management service was consulted.. Psychiatry evaluation due to severe anxiety and suicidal ideation. Medically cleared from psychiatric standpoint. continue with aspirin, Coreg, statins. Also on lisinopril. Continue with letrozole Continue the home medications and insulin sliding scale as needed. Follow up closely. Prognosis guarded with multiple medical problems and comorbid conditions. Time with Patient: Greater than 30
[2021-02-14 11:52] LABS: Glucose,Whole Blood 137 mg/dL (75-99)
[2021-02-14 16:37] LABS: Glucose,Whole Blood 135 mg/dL (75-99)
[2021-02-14 20:43] LABS: Glucose,Whole Blood 168 mg/dL (75-99)
[2021-02-14] MEDS: traZODone HCL 50 MG TAB PO SCH (22:07)
[2021-02-15] MEDS: KETOROLAC 15 MG/ML 1 ML VIAL IVP SCH ×2 (05:17→12:18)
[2021-02-15 06:51] LABS: Glucose,Whole Blood 135 mg/dL (75-99)
[2021-02-15] MEDS ORDERED: PANTOPRAZOLE 40 MG TABLET PO SCH (07:30)
[2021-02-15 07:33] VITALS: BP 110/55; PULSE 75; TEMP 98.3
[2021-02-15] MEDS: HEPARIN SODIUM,PORCINE/PF 5,000 UNIT/0.5 ML SYRINGE SQ SCH (08:07)
[2021-02-15] MEDS: carvediloL 6.25 MG TAB PO SCH (08:08)
[2021-02-15] MEDS: ISOSORBIDE MONONITRATE ER 30 MG TAB.ER.24H PO SCH (08:08)
[2021-02-15] MEDS: OXcarbazepine 300 MG TAB PO SCH (08:08)
[2021-02-15] MEDS: PARoxetine 20 MG TAB PO SCH (08:08)
[2021-02-15] MEDS: NICOTINE 14MG/24HR PATCH TRANSDERM SCH (08:08)
[2021-02-15] MEDS: GABAPENTIN 300 MG CAP PO SCH (08:08)
[2021-02-15] MEDS: lisinopriL 5 MG TAB PO SCH (08:08)
[2021-02-15] MEDS: ASPIRIN 81 MG PO SCH (08:08)
[2021-02-15] MEDS: SPIRONOLACTONE 25 MG TAB PO SCH (08:08)
[2021-02-15] MEDS: LETROZOLE 2.5 MG TAB PO SCH (08:09)
== END 2021-02-15 14:05 | disposition home or self-care (01) ==
LOC: EC 08:01 → 4SSUR 14:26
PROVIDERS: ADMIT Internal Medicine; ATTEND Internal Medicine
DX: G89.29 Other chronic pain (principal); M51.36 Other intervertebral disc degeneration, lumbar region; M48.061 Spinal stenosis, lumbar region without neurogenic claudication; F41.9 Anxiety disorder, unspecified; R45.851 Suicidal ideations; M43.16 Spondylolisthesis, lumbar region; I25.10 Atherosclerotic heart disease of native coronary artery without angina pectoris; E11.649 Type 2 diabetes mellitus with hypoglycemia without coma; I25.2 Old myocardial infarction; I50.22 Chronic systolic (congestive) heart failure; Z95.5 Presence of coronary angioplasty implant and graft; K21.9 Gastro-esophageal reflux disease without esophagitis; E78.5 Hyperlipidemia, unspecified; Z85.3 Personal history of malignant neoplasm of breast; F17.200 Nicotine dependence, unspecified, uncomplicated; E87.1 Hypo-osmolality and hyponatremia; F31.9 Bipolar disorder, unspecified; M46.1 Sacroiliitis, not elsewhere classified; M47.9 Spondylosis, unspecified; M10.9 Gout, unspecified; Z79.4 Long term (current) use of insulin; Z79.811 Long term (current) use of aromatase inhibitors; Z79.82 Long term (current) use of aspirin; Z79.899 Other long term (current) drug therapy; Z88.5 Allergy status to narcotic agent; Z91.040 Latex allergy status; Z92.3 Personal history of irradiation; Z86.69 Personal history of other diseases of the nervous system and sense organs; Z82.49 Family history of ischemic heart disease and other diseases of the circulatory system; Z83.3 Family history of diabetes mellitus; Z80.9 Family history of malignant neoplasm, unspecified; Z23 Encounter for immunization
CPT/HCPCS: 90471; 96376 ×3; 96372 ×3; 96375 ×3; 82075; 96374; 99285; 36415; 93005; 80048 ×2; 82553; 84484; 85025 ×2; 81003; 80306; 90715; G0378 ×4; S4990 ×4; J2060; J3301; Q0167 ×3; J2405 ×2; J1170 ×2; J1885 ×3; C9113 ×3; J2795; J1644 ×3; G0260; 27096

== ENCOUNTER 2021-04-12 15:44 | Emergency (ER) | payer MEDICARE, OTHER ==
[2021-04-12] MEDS ORDERED: levETIRAcetam IV 1,000 MG in SALINE 1 100ML.BAG IVPB STA (15:47)
--- NOTE | 2021-04-12 15:48 | ED ---
Seizure HPI - General Stated Complaint: seizure Time Seen by Provider: 04/12/21 15:47 - History of Present Illness Initial Comments: Vanesa is a 70-year-old female who presents to the emergency department today by ambulance for evaluation of seizures. Patient apparently had 3 seizures prior to EMS arrival and one seizure witnessed by EMS. Patient reports that she has been out of her Keppra for a couple of weeks, just a she still taking her Trileptal. Patient also admits to not eating or drinking well. She states that during her previous hospitalization she was given a medication that increased her appetite however was not prescribed that hasn't taken it at home and hasn't been eating or drinking well because she has no appetite. Patient does complain of pain in her left shoulder from a fall due to the seizure. - Related Data Home Medications Medication Instructions Recorded Confirmed PARoxetine HCL [Paxil] 40 mg PO DAILY 06/24/16 04/12/21 Isosorbide Mononitrate ER [Imdur] 30 mg PO DAILY 09/02/17 04/12/21 OXcarbazepine [Trileptal] 300 mg PO BID 02/19/20 04/12/21 Aspirin EC [Ecotrin Low Dose] 81 mg PO DAILY 09/12/20 04/12/21 clonazePAM [KlonoPIN] 1 mg PO BID PRN 02/05/21 04/12/21 traZODone HCL [Desyrel] 100 mg PO HS 02/05/21 04/12/21 Previous Rx's Medication Instructions Recorded Letrozole [Femara] 2.5 mg PO DAILY 30 Days #30 tab 09/18/20 Spironolactone [Aldactone] 25 mg PO DAILY #30 tab 02/07/21 carvediloL [Coreg] 6.25 mg PO AC-BID #60 tab 02/07/21 lisinopriL [Zestril] 5 mg PO DAILY #30 tab 02/07/21 HYDROcodone/APAP 5-325MG [Divide 5] 1 each PO Q4HR PRN #12 tab 04/12/21 levETIRAcetam [Keppra] 500 mg PO BID #60 tab 04/12/21 Allergies Allergy/AdvReac Type Severity Reaction Status Date / Time codeine AdvReac Nausea & Verified 04/12/21 17:25 Vomiting Latex, Natural Rubber AdvReac Rash/Hives/ Verified 04/12/21 17:25 itching Review of Systems ROS Statement: Those systems with pertinent positive or pertinent negative responses have been documented in the HPI. ROS Other: All systems not noted in ROS Statement are negative. Past Medical History Past Medical History: Coronary Artery Disease (CAD), Diabetes Mellitus, GERD/Reflux, Hyperlipidemia, Myocardial Infarction ([place]) Additional Past Medical History / Comment(s): Dx rt breast CA December 2019-takes chemo Po, radiation completed 1 month ago, fx ankle November 2019-has boot (states boot cannot be removed)on rt ankle-uses walker and WBAT, hx7-16-15 pancreatitis. other MIGRAINES, chronic back pain, gout Last Myocardial Infarction Date:: unk History of Any Multi-Drug Resistant Organisms: None Reported Past Surgical History: Breast Surgery, Heart Catheterization With Stent, Orthopedic Surgery Additional Past Surgical History / Comment(s): ORIF rt ankle , EGD/COLONOSCOPY, bone marrow bx-neg, TOTAL OF 3 CARDIAC STENTS, breast bx; right breast lumpectomy w/AND 01/30/20; Past Anesthesia/Blood Transfusion Reactions: No Reported Reaction Additional Past Anesthesia/Blood Transfusion Reaction / Comment(s): clausterphobia Date of Last Stent Placement:: UNK Past Psychological History: Anxiety, Bipolar Smoking Status: Current every day smoker Past Alcohol Use History: None Reported Past Drug Use History: None Reported - Past Family History Son(s) Family Medical History: Cancer Father Family Medical History: Diabetes Mellitus, Myocardial Infarction ([place]) Mother Family Medical History: Cancer, Myocardial Infarction ([place]) General Exam - General Exam Comments Initial Comments: Physical Exam GENERAL: Patient is well-developed and well-nourished. Patient is nontoxic and well- hydrated and is in no distress. HENT: Normocephalic, Atraumatic. EYES: PERRL, EOMI PULMONARY: Unlabored respirations. No audible rales rhonchi or wheezing was noted. CARDIOVASCULAR: There is a regular rate and rhythm without any murmurs gallops or rubs. ABDOMEN: Soft and nontender with normal bowel sounds. SKIN: Skin is clear with no lesions or rashes and otherwise unremarkable. : Deferred NEUROLOGIC: Patient is alert and oriented x3. Moving all extremities spontaneously MUSCULOSKELETAL: Normal extremities with adequate strength and full range of motion. No lower extremity swelling or edema. No calf tenderness. PSYCHIATRIC: Normal psychiatric evaluation. Course Vital Signs 04/12/21 04/12/21 15:46 19:04 Temperature 98.1 F Pulse Rate 56 L 66 Respiratory 18 18 Rate Blood Pressure 114/57 118/52 O2 Sat by Pulse 93 L 98 Oximetry Medical Decision Making - Medical Decision Making Patient was seen and evaluated, history is obtained from the patient and family at bedside. Patient is 70 years old has a history of seizure disorder has not been on Keppra for a number of weeks due to having ran out and not seen her primary care provider. Patient had 3 seizures prior to arrival she did fall to the left she did not hit her head she doesn't have any signs of head trauma but complains of pain in the left shoulder area. Labs were obtained, she does have a change in her hemoglobin as well as some evidence of hyponatremia. Patient has had previous relative hyponatremia. Patient and family do report she's not been eating or drinking well. She did receive IV fluids while in the emergency department. The left clavicular fracture. Results were discussed with the patient and family at bedside initially the patient was agreeable to admission to the hospital for IV fluid resuscitation, monitoring of the hyponatremia, anti-convulsant medications and evaluation by neurology however patient changed her mind and states that she feels she would prefer to go home. Patient is aware that she is hyponatremic and needs more balanced diet. In addition patient will be prescribed 30 days' of Keppra. She was loaded with IV Keppra while in the emergency department. Patient has remained awake alert and oriented throughout her stay in the emergency department. At this time she'll be discharged home for outpatient follow-up. - Lab Data Result diagrams: 04/12/21 16:01 04/12/21 16:01 Lab Results 04/12/21 04/12/21 Range/Units 16:01 16:01 WBC 4.4 (3.8-10.6) k/uL RBC 2.89 L (3.80-5.40) m/uL Hgb 10.2 L D (11.4-16.0) gm/dL Hct 27.6 L (34.0-46.0) % MCV 95.5 (80.0-100.0) fL MCH 35.2 H (25.0-35.0) pg MCHC 36.8 (31.0-37.0) g/dL RDW 12.4 (11.5-15.5) % Plt Count 326 (150-450) k/uL MPV 6.8 Neutrophils % 77 % Lymphocytes % 8 % Monocytes % 8 % Eosinophils % 2 % Basophils % 1 % Neutrophils # 3.4 (1.3-7.7) k/uL Lymphocytes # 0.4 L (1.0-4.8) k/uL Monocytes # 0.4 (0-1.0) k/uL Eosinophils # 0.1 (0-0.7) k/uL Basophils # 0.0 (0-0.2) k/uL Hyperchromasia Moderate Poikilocytosis Slight Sodium 125 L (137-145) mmol/L Potassium 4.5 (3.5-5.1) mmol/L Chloride 96 L (98-107) mmol/L Carbon Dioxide 23 (22-30) mmol/L Anion Gap 6 mmol/L BUN 15 (7-17) mg/dL Creatinine 0.79 (0.52-1.04) mg/dL Est GFR (CKD-EPI)AfAm 87 (>60 ml/min/1.73 sqM) Est GFR (CKD-EPI)NonAf 76 (>60 ml/min/1.73 sqM) Glucose 134 H (74-99) mg/dL Calcium 8.2 L (8.4-10.2) mg/dL Total Bilirubin 0.4 (0.2-1.3) mg/dL AST 21 (14-36) U/L ALT 13 (4-34) U/L Alkaline Phosphatase 120 (38-126) U/L Total Protein 5.6 L (6.3-8.2) g/dL Albumin 3.1 L (3.5-5.0) g/dL Disposition Clinical Impression: Generalized seizure, Fracture, clavicle closed, shaft, Hyponatremia Disposition: HOME SELF-CARE Condition: Stable Instructions (If sedation given, give patient instructions): Seizure/Epilepsy Discharge Instructions & Follow-Up Prescriptions: levETIRAcetam [Keppra] 500 mg PO BID #60 tab HYDROcodone/APAP 5-325MG [Divide 5] 1 each PO Q4HR PRN #12 tab PRN Reason: Pain Is patient prescribed a controlled substance at d/c from ED?: No Referrals: Nancy Chavez MD [Primary Care Provider] - 1-2 days
[2021-04-12 15:50] VITALS: RESP 18; TEMP 98.1
[2021-04-12 16:25] LABS: Basophils % (A) 1 %; Eosinophils # (A) 0.1 k/uL (0-0.7); Eosinophils % (A) 2 %; HCT 27.6 % (34.0-46.0); HGB 10.2 gm/dL (11.4-16.0); Hyperchromasia Moderate; Lymphocytes # (A) 0.4 k/uL (1.0-4.8); Lymphocytes % (A) 8 %; MCH 35.2 pg (25.0-35.0); MCHC 36.8 g/dL (31.0-37.0); MCV 95.5 fL (80.0-100.0); Mean Platelet Volume 6.8; Monocytes # (A) 0.4 k/uL (0-1.0); Monocytes % (A) 8 %; Neutrophils # (A) 3.4 k/uL (1.3-7.7); Neutrophils % (A) 77 %; Platelet Count 326 k/uL (150-450); Poikilocytosis Slight; RBC 2.89 m/uL (3.80-5.40); RDW 12.4 % (11.5-15.5); WBC 4.4 k/uL (3.8-10.6)
[2021-04-12 16:26] LABS: Albumin 3.1 g/dL (3.5-5.0); Calcium 8.2 mg/dL (8.4-10.2); Potassium 4.5 mmol/L (3.5-5.1); Total Bilirubin 0.4 mg/dL (0.2-1.3); Total Protein 5.6 g/dL (6.3-8.2)
--- NOTE | 2021-04-12 17:55 | XR ---
EXAMINATION TYPE: XR shoulder complete LT DATE OF EXAM: 04/12/2021 COMPARISON: NONE HISTORY: Fall. Pain. TECHNIQUE: 3 views FINDINGS: There is oblique fracture lateral and of the left clavicle. There is 6 mm superior displace ment of the lateral fragment. There is no dislocation. Humeral head is intact. Scapula is intact. IMPRESSION: Acute fracture of the lateral and of the clavicle with comminution and mild displacement.
[2021-04-12] MEDS ORDERED: MORPHINE SULFATE 4 MG/ML SYRINGE IVP STA (18:43)
[2021-04-12 19:04] VITALS: BP 118/52; PULSE 66
== END 2021-04-12 19:40 | disposition home or self-care (01) ==
LOC: EC 15:44
DX: S42.022A Displaced fracture of shaft of left clavicle, initial encounter for closed fracture (principal); R56.9 Unspecified convulsions; E87.1 Hypo-osmolality and hyponatremia; E11.9 Type 2 diabetes mellitus without complications; E78.5 Hyperlipidemia, unspecified; F31.9 Bipolar disorder, unspecified; F41.9 Anxiety disorder, unspecified; I25.10 Atherosclerotic heart disease of native coronary artery without angina pectoris; I25.2 Old myocardial infarction; K21.9 Gastro-esophageal reflux disease without esophagitis; M10.9 Gout, unspecified; F17.200 Nicotine dependence, unspecified, uncomplicated; Z85.3 Personal history of malignant neoplasm of breast; Z79.82 Long term (current) use of aspirin; Z79.899 Other long term (current) drug therapy; Z88.5 Allergy status to narcotic agent; Z91.040 Latex allergy status; Z95.5 Presence of coronary angioplasty implant and graft; W18.30XA Fall on same level, unspecified, initial encounter
CPT/HCPCS: 36415; 80053; 85025; 73030; 99285; 96365; 96375; J2270; J1953

== ENCOUNTER 2021-07-21 15:23 | Inpatient (IN) | payer MEDICARE, OTHER ==
[2021-07-21] MEDS ORDERED: SODIUM CHLORIDE 0.9% 1,000 ML IV ONE (19:05)
[2021-07-21] MEDS ORDERED: MORPHINE SULFATE 4 MG/ML SYRINGE IVP STA (19:05)
[2021-07-21] MEDS ORDERED: ONDANSETRON 4 MG/2 ML VIAL IVP STA (19:05)
--- NOTE | 2021-07-21 19:40 | XR ---
EXAMINATION TYPE: XR clavicle LT DATE OF EXAM: 07/21/2021 COMPARISON: 04/12/2021 HISTORY: Pain TECHNIQUE: 2 views FINDINGS: There is comminuted fracture of lateral end of the left clavicle. Fracture lines are still visible. There is minimal callus. AC joint is anatomic. Glenohumeral joint is intact. IMPRESSION: Ununited fracture of the lateral end of the left clavicle without significant change in p osition compared to old exam. Fracture lines still visible.
--- NOTE | 2021-07-21 19:42 | XR ---
EXAMINATION TYPE: XR lumbosacral spine min 4V DATE OF EXAM: 07/21/2021 COMPARISON: NONE HISTORY: Back pain TECHNIQUE: 5 views FINDINGS: The lumbar vertebrae are in normal alignment. There is no compression fracture. There is sc lerosis at L1 to disc space. Abdominal aorta is atheromatous. Posterior elements are intact. Sacroili ac joints are intact. IMPRESSION: There is some spondylosis at L1-2. No fracture seen.
[2021-07-21 20:15] LABS: Basophils # (A) 0.1 k/uL (0-0.2); Basophils % (A) 1 %; Eosinophils # (A) 0.1 k/uL (0-0.7); Eosinophils % (A) 2 %; HCT 38.9 % (34.0-46.0); HGB 13.5 gm/dL (11.4-16.0); Lymphocytes # (A) 1.9 k/uL (1.0-4.8); Lymphocytes % (A) 25 %; MCH 33.8 pg (25.0-35.0); MCHC 34.7 g/dL (31.0-37.0); MCV 97.6 fL (80.0-100.0); Mean Platelet Volume 7.1; Monocytes # (A) 0.4 k/uL (0-1.0); Monocytes % (A) 5 %; Neutrophils # (A) 4.9 k/uL (1.3-7.7); Neutrophils % (A) 65 %; Platelet Count 276 k/uL (150-450); RBC 3.99 m/uL (3.80-5.40); RDW 14.3 % (11.5-15.5); WBC 7.5 k/uL (3.8-10.6)
[2021-07-21 20:28] LABS: Albumin 4.3 g/dL (3.5-5.0); Calcium 9.8 mg/dL (8.4-10.2); Potassium 4.6 mmol/L (3.5-5.1); Total Bilirubin 0.7 mg/dL (0.2-1.3); Total Protein 6.8 g/dL (6.3-8.2)
--- NOTE | 2021-07-21 20:49 | CT ---
EXAMINATION TYPE: CT brain cspine wo con DATE OF EXAM: 07/21/2021 COMPARISON: 11/29/2019 HISTORY: Headache CT DLP: 1380.4 mGycm Automated exposure control for dose reduction was used. ventricles have fairly normal size. There is no mass effect or midline shift. There is no sign of int racranial hemorrhage. Calvarium is intact. Cervical vertebra have fairly normal alignment. There is mild degenerative hypertrophic disc change at C5-4-5 and C5-6. Facet joints are intact. Prev ertebral soft tissues are intact. IMPRESSION: Negative CT scan of the brain. Negative CT scan cervical spine. No evidence of traumatic injury. No c hange.
[2021-07-21] MEDS ORDERED: KETOROLAC 15 MG/ML 1 ML VIAL IVP STA (21:48)
[2021-07-21 22:00] LABS: Appearance,Urine Clear (Clear); Bacteria,Urine Moderate /hpf; Bilirubin,Urine Negative (Negative); Blood,Urine Negative (Negative); Color,Urine Light Yellow; Glucose,Urine (UA) Negative (Negative); Ketones,Urine 2+ (Negative); Leukocyte Esterase,Urine Large (Negative); Nitrite,Urine Negative (Negative); Protein,Urine Negative (Negative); RBC,Urine 3 /hpf (0-5); Specific Gravity,Urine 1.008 (1.001-1.035); Squamous Epithelial Cell,Urine 5 /hpf (0-4); Urobilinogen,Urine <2.0 mg/dL (<2.0); WBC,Urine 88 /hpf (0-5)
[2021-07-21] MEDS ORDERED: NITROFURANTOIN MONOHYD/M-CRYST 100 MG CAP PO STA (22:18)
--- NOTE | 2021-07-21 22:19 | ED ---
General Adult HPI - General Chief complaint: Headache Stated complaint: seizures, fall Time Seen by Provider: 07/21/21 18:44 Source: patient Mode of arrival: wheelchair Limitations: no limitations - History of Present Illness Initial comments: 71 year-old female patient presents to the emergency department with multiple complaints. She reports weakness and dehydration due to not eating or drinking for the last several days. States she had a seizure with fall about 10 days ago and has been having a lot of pain since. She reports back pain, left clavic le/shoulder pain, leg pain, and right breast pain. She is having a generalized headache. Denies blurred or double vision. She reports nausea. Denies vomiting or diarrhea. States she has been taking her home medications without difficulty. Took two norco prior to arrival without relief. Patient denies any recent rash, fever, chills, cough, shortness of breath, chest pain, diarrhea, constipation, b ack pain, numbness, tingling, dizziness, hematuria, dysuria, urinary urgency, urinary frequency, or any other complaints. - Related Data Home Medications Medication Instructions Recorded Confirmed PARoxetine HCL [Paxil] 40 mg PO DAILY 06/24/16 07/21/21 Isosorbide Mononitrate ER [Imdur] 30 mg PO DAILY 09/02/17 07/21/21 OXcarbazepine [Trileptal] 300 mg PO BID 02/19/20 07/21/21 Aspirin EC [Ecotrin Low Dose] 81 mg PO DAILY 09/12/20 07/21/21 clonazePAM [KlonoPIN] 1 mg PO BID PRN 02/05/21 07/21/21 traZODone HCL [Desyrel] 100 mg PO HS 02/05/21 07/21/21 Ergocalciferol (Vitamin D2) 1,250 mcg PO TUFR 07/21/21 07/21/21 [Drisdol (50,000 Iu)] HYDROcodone/APAP 7.5-325MG [Windfall 1 tab PO BID PRN 07/21/21 07/21/21 7.5-325] Rosuvastatin Calcium [Crestor] 10 mg PO DAILY 07/21/21 07/21/21 Previous Rx's Medication Instructions Recorded carvediloL [Coreg] 6.25 mg PO AC-BID #60 tab 07/23/21 levETIRAcetam [Keppra] 500 mg PO BID #60 tab 04/12/21 Allergies Allergy/AdvReac Type Severity Reaction Status Date / Time codeine AdvReac Nausea & Verified 07/21/21 18:07 Vomiting Latex, Natural Rubber AdvReac Rash/Hives/ Verified 07/21/21 18:07 itching Review of Systems ROS Statement: Those systems with pertinent positive or pertinent negative responses have been documented in the HPI. ROS Other: All systems not noted in ROS Statement are negative. Past Medical History Past Medical History: Coronary Artery Disease (CAD), Diabetes Mellitus, GERD/Reflux, Hyperlipidemia, Myocardial Infarction ([place]) Additional Past Medical History / Comment(s): Dx rt breast CA December 2019-takes chemo Po, radiation completed 1 month ago, fx ankle November 2019-has boot (states boot cannot be removed)on rt ankle-uses walker and WBAT, hx7-16-15 pancreatitis. other MIGRAINES, chronic back pain, gout Last Myocardial Infarction Date:: unk History of Any Multi-Drug Resistant Organisms: None Reported Past Surgical History: Breast Surgery, Heart Catheterization With Stent, Orthop edic Surgery Additional Past Surgical History / Comment(s): ORIF rt ankle , EGD/COLONOSCOPY, bone marrow bx-neg, TOTAL OF 3 CARDIAC STENTS, breast bx; right breast lumpectomy w/AND 01/30/20; Past Anesthesia/Blood Transfusion Reactions: No Reported Reaction Additional Past Anesthesia/Blood Transfusion Reaction / Comment(s): clausterphobia Date of Last Stent Placement:: UNK Past Psychological History: Anxiety, Bipolar Smoking Status: Current every day smoker Past Alcohol Use History: None Reported Past Drug Use History: None Reported - Past Family History Son(s) Family Medical History: Cancer Father Family Medical History: Diabetes Mellitus, Myocardial Infarction ([place]) Mother Family Medical History: Cancer, Myocardial Infarction ([place]) General Exam Limitations: no limitations General appearance: alert, in no apparent distress, other (This is a well developed, well nourished adult female in mild distress related to pain. ) Respiratory exam: Present: normal lung sounds bilaterally. Absent: respiratory distress, wheezes, rales, rhonchi, stridor Cardiovascular Exam: Present: regular rate, normal rhythm, normal heart sounds. Absent: systolic murmur, diastolic murmur, rubs, gallop, clicks Back exam: Present: normal inspection, vertebral tenderness (lumbar) Neurological exam: Present: alert, oriented X3, CN II-XII intact Psychiatric exam: Present: depressed, agitated, anxious Skin exam: Present: warm, dry, intact, normal color. Absent: rash Course Vital Signs 07/21/21 18:03 Temperature 99.1 F Pulse Rate 82 Respiratory 20 Rate Blood Pressure 139/71 O2 Sat by Pulse 99 Oximetry Medical Decision Making - Medical Decision Making 71-year-old female patient presents to the emergency department today with multiple complaints including headache, back pain, left clavicle pain, leg pain, lack of appetite. Labs reviewed and are relatively unremarkable. CT brain and C-spine negative, left clavicle x-ray shows ununited fracture of the left clavicle with no significant change, and lumbosacral x-rays negative. She did have evidence for UTI on urinalysis. She is given multiple doses of pain medication without any relief. Patient states she lives alone and is unable to care for herself at this time. She will be admitted for observation. My attending is Dr. Ortega. - Lab Data Result diagrams: 07/21/21 19:51 07/21/21 19:51 Lab Results 07/21/21 07/21/21 07/21/21 Range/Units 19:51 19:51 19:51 WBC 7.5 (3.8-10.6) k/uL RBC 3.99 (3.80-5.40) m/uL Hgb 13.5 (11.4-16.0) gm/dL Hct 38.9 (34.0-46.0) % MCV 97.6 (80.0-100.0) fL MCH 33.8 (25.0-35.0) pg MCHC 34.7 (31.0-37.0) g/dL RDW 14.3 (11.5-15.5) % Plt Count 276 (150-450) k/uL MPV 7.1 Neutrophils % 65 % Lymphocytes % 25 % Monocytes % 5 % Eosinophils % 2 % Basophils % 1 % Neutrophils # 4.9 (1.3-7.7) k/uL Lymphocytes # 1.9 (1.0-4.8) k/uL Monocytes # 0.4 (0-1.0) k/uL Eosinophils # 0.1 (0-0.7) k/uL Basophils # 0.1 (0-0.2) k/uL Sodium 138 (137-145) mmol/L Potassium 4.6 (3.5-5.1) mmol/L Chloride 103 (98-107) mmol/L Carbon Dioxide 22 (22-30) mmol/L Anion Gap 13 mmol/L BUN 20 H (7-17) mg/dL Creatinine 0.80 (0.52-1.04) mg/dL Est GFR (CKD-EPI)AfAm 85 (>60 ml/min/1.73 sqM) Est GFR (CKD-EPI)NonAf 74 (>60 ml/min/1.73 sqM) Glucose 113 H (74-99) mg/dL Plasma Lactic Acid Lino (0.7-2.0) mmol/L Calcium 9.8 (8.4-10.2) mg/dL Total Bilirubin 0.7 (0.2-1.3) mg/dL AST 26 (14-36) U/L ALT 16 (4-34) U/L Alkaline Phosphatase 82 (38-126) U/L Total Protein 6.8 (6.3-8.2) g/dL Albumin 4.3 (3.5-5.0) g/dL Urine Color Light Yellow Urine Appearance Clear (Clear) Urine pH 7.0 (5.0-8.0) Ur Specific Muse 1.008 (1.001-1.035) Urine Protein Negative (Negative) Urine Glucose (UA) Negative (Negative) Urine Ketones 2+ H (Negative) Urine Blood Negative (Negative) Urine Nitrite Negative (Negative) Urine Bilirubin Negative (Negative) Urine Urobilinogen <2.0 (<2.0) mg/dL Ur Leukocyte Esterase Large H (Negative) Urine RBC 3 (0-5) /hpf Urine WBC 88 H (0-5) /hpf Ur Squamous Epith Cells 5 H (0-4) /hpf Urine Bacteria Moderate H (None) /hpf Coronavirus (PCR) (Not Detectd) 07/21/21 07/21/21 Range/Units 19:51 19:51 WBC (3.8-10.6) k/uL RBC (3.80-5.40) m/uL Hgb (11.4-16.0) gm/dL Hct (34.0-46.0) % MCV (80.0-100.0) fL MCH (25.0-35.0) pg MCHC (31.0-37.0) g/dL RDW (11.5-15.5) % Plt Count (150-450) k/uL MPV Neutrophils % % Lymphocytes % % Monocytes % % Eosinophils % % Basophils % % Neutrophils # (1.3-7.7) k/uL Lymphocytes # (1.0-4.8) k/uL Monocytes # (0-1.0) k/uL Eosinophils # (0-0.7) k/uL Basophils # (0-0.2) k/uL Sodium (137-145) mmol/L Potassium (3.5-5.1) mmol/L Chloride (98-107) mmol/L Carbon Dioxide (22-30) mmol/L Anion Gap mmol/L BUN (7-17) mg/dL Creatinine (0.52-1.04) mg/dL Est GFR (CKD-EPI)AfAm (>60 ml/min/1.73 sqM) Est GFR (CKD-EPI)NonAf (>60 ml/min/1.73 sqM) Glucose (74-99) mg/dL Plasma Lactic Acid Lino 1.4 (0.7-2.0) mmol/L Calcium (8.4-10.2) mg/dL Total Bilirubin (0.2-1.3) mg/dL AST (14-36) U/L ALT (4-34) U/L Alkaline Phosphatase (38-126) U/L Total Protein (6.3-8.2) g/dL Albumin (3.5-5.0) g/dL Urine Color Urine Appearance (Clear) Urine pH (5.0-8.0) Ur Specific Muse (1.001-1.035) Urine Protein (Negative) Urine Glucose (UA) (Negative) Urine Ketones (Negative) Urine Blood (Negative) Urine Nitrite (Negative) Urine Bilirubin (Negative) Urine Urobilinogen (<2.0) mg/dL Ur Leukocyte Esterase (Negative) Urine RBC (0-5) /hpf Urine WBC (0-5) /hpf Ur Squamous Epith Cells (0-4) /hpf Urine Bacteria (None) /hpf Coronavirus (PCR) Not Detected (Not Detectd) - Radiology Data Radiology results: report reviewed, image reviewed CT brain and C-spine without contrast was obtained. Report was reviewed in its entirety. Impression by Dr. Bianchi shows negative computed tomography scan of the brain. Negative computed tomography scan cervical spine. No evidence of traumatic injury. No change. 4 views of the lumbosacral spine are obtained. Report was reviewed in its entirety. Impression by Dr. Bianchi shows some spondylosis at L1-2. No fracture seen. 2 views of the left clavicle are obtained. Report was reviewed in its entirety. Impression by Dr. Bianchi shows ununited fracture of the lateral end of the clavicle without significant change of position compared to old exam. Fracture line still visible. Disposition Clinical Impression: UTI (urinary tract infection), Weakness, Back pain Disposition: ADMITTED IP TO THIS [facility] Condition: Serious Decision to Admit Reason: Admit from EC Decision Date: 07/21/21 Decision Time: 22:37
[2021-07-21] MEDS ORDERED: cefTRIAXone IN SWFI 1,000 MG/10 ML SYRINGE IVP STA (22:31)
[2021-07-21] MEDS ORDERED: HYDROmorphone 1 MG/ML 1 ML SYRINGE IVP STA (22:31)
[2021-07-21] MEDS ORDERED: ONDANSETRON 4 MG/2 ML VIAL IVP PRN (22:35)
[2021-07-21] MEDS ORDERED: NALOXONE 0.4 MG/ML 1 ML VIAL IV PRN (22:35)
[2021-07-22] MEDS: HYDROmorphone 1 MG/ML 1 ML SYRINGE IVP PRN ×2 (04:55→22:36)
[2021-07-22] MEDS: SODIUM CHLORIDE 0.9% 1,000 ML IV SCH ×2 (04:56→15:43)
[2021-07-22] MEDS ORDERED: HYDROcodone/APAP 7.5-325MG 1 EACH TAB PO PRN (09:46)
[2021-07-22] MEDS ORDERED: ERGOCALCIFEROL 1,250 MCG (50,000 IU) CAPSULE PO SCH (10:00)
[2021-07-22] MEDS: ISOSORBIDE MONONITRATE ER 30 MG TAB.ER.24H PO SCH (10:22)
[2021-07-22] MEDS: levETIRAcetam 500 MG TAB PO SCH ×2 (10:22→20:31)
[2021-07-22] MEDS: carvediloL 6.25 MG TAB PO SCH ×2 (10:22→17:34)
[2021-07-22] MEDS: ASPIRIN 81 MG PO SCH (10:23)
[2021-07-22] MEDS: PARoxetine 20 MG TAB PO SCH (10:23)
[2021-07-22] MEDS: OXcarbazepine 300 MG TAB PO SCH ×2 (10:23→20:31)
[2021-07-22] MEDS: ATORVASTATIN 20 MG TAB PO SCH (10:23)
[2021-07-22] MEDS: clonazePAM 1 MG TAB PO PRN ×2 (10:34→22:36)
[2021-07-22] MEDS: ONDANSETRON 4 MG TAB PO PRN ×2 (15:25→20:31)
[2021-07-22] MEDS ORDERED: ALPRAZolam 0.25 MG TAB PO PRN (19:07)
[2021-07-22] MEDS ORDERED: cefTRIAXone 1,000 MG VIAL (IM USE) IM SCH (19:15)
--- NOTE | 2021-07-22 19:50 | XR ---
EXAMINATION TYPE: XR chest 1V portable DATE OF EXAM: 07/22/2021 COMPARISON: 02/04/2021 HISTORY: Short of breath TECHNIQUE: Single view FINDINGS: Heart is normal. Lungs are clear of infiltrate. There are no hilar masses. Costophrenic ang les are clear. There is slight blunting right costophrenic angle. IMPRESSION: There is a mild pleural reaction lateral right lung base which appears new compared to ol d exam. Normal heart. No heart failure.
[2021-07-22] MEDS: traZODone HCL 100 MG TAB PO SCH (20:31)
[2021-07-22] MEDS: HEPARIN SODIUM,PORCINE/PF 5,000 UNIT/0.5 ML SYRINGE SQ SCH (20:32)
[2021-07-22] MEDS: HYDROcodone/APAP 5-325MG 1 EACH TAB PO PRN (20:43)
--- NOTE | 2021-07-22 20:52 | HP ---
HISTORY AND PHYSICAL CHIEF COMPLAINT: Seizures and fall and headache. HISTORY OF PRESENT ILLNESS: This 71-year-old woman with a past medical history of multiple medical problems, including CAD, history of diabetes, GERD, hyperlipidemia, history of myocardial infarction, being followed by Dr. Nancy Chavez in the outpatient setting apparently living at home. The patient had diminished p.o. intake. The patient had multiple seizures and fall. The patient is complaining of left clavicle pain and back pain throughout and patient came to [facility] and was admitted for further evaluation and treatment. The CBC, BMP was normal. UA showed some UTI. Covid 19 was negative. The patient also had a CT scan of the head and neck and cervical spine which showed no traumatic changes. The lumbar spine x-ray was also done which showed spondylosis of the L1-L2. No fractures were noted and the clavicle x-ray was also done which showed fracture of the lateral end of the left clavicle without any significant changes was noted. There is no history of fever, rigors. No history of headache, loss of consciousness or seizures at this time. PAST MEDICAL HISTORY: History of CAD, diabetes, GERD, hyperlipidemia, history of myocardial infarction, history of breast cancer. MEDICATIONS: Home medications are: Klonopin, Odum, vitamin D2, Desyrel, Keppra, Crestor, Paxil, Trileptal. Doses reviewed. ALLERGIES: CODEINE AND LATEX. FAMILY HISTORY: History of diabetes, myocardial infarction in the family. SOCIAL HISTORY: History of smoking. No alcohol intake. REVIEW OF SYSTEMS: ENT: No diminished vision. No diminished hearing. CARDIOVASCULAR: As mentioned earlier. RESPIRATION: As mentioned earlier. GI: As mentioned earlier. : No dysuria. NERVOUS SYSTEM: No numbness or weakness. ALLERGY/IMMUNOLOGY: No asthma or hayfever. MUSCULOSKELETAL: As mentioned earlier. HEMATOLOGY/ONCOLOGY: No history of anemia. ENDOCRINE: As mentioned earlier. CONSTITUTIONAL: As mentioned earlier. DERMATOLOGY: Negative. RHEUMATOLOGY: Negative. PSYCHIATRY as mentioned earlier. PHYSICAL EXAMINATION: Patient is alert, oriented x3. The pulse is 77. Blood pressure 175/77. Respiration 18, temperature 98 degrees, pulse ox 97% on room air. HEENT: Conjunctivae normal. NECK: No JVD. CARDIOVASCULAR: S1, S2 muffled. RESPIRATORY: Breath sounds diminished in the bases. Scattered rhonchi. ABDOMEN: Soft. LEGS: No edema. No swelling. NERVOUS SYSTEM: Higher functions as mentioned earlier. Moves all four extremities. No focal motor or sensory deficits. LYMPHATICS: No lymph nodes palpable in the neck, axillae or groin. SKIN: No ulcers, no rashes and no bleeding. JOINTS: No active deforming arthropathy. LABS: CBC within normal limits. Other labs are noted. ASSESSMENT: 1. Seizures and breakthrough seizures. 2. Change in mental status acute metabolic encephalopathy possibly secondary to seizures. 3. Acute urinary tract infection, rule out sepsis. 4. Diminished p.o. intake. 5. Severe back pain, degenerative joint disease. 6. Left clavicular fracture. 7. History of coronary artery disease. 8. Diabetes mellitus, type 2. 9. Gastroesophageal reflux disease. 10.Hyperlipidemia. 11.History of myocardial infarction. 12.History of breast cancer, radiation chemo. 13.History of migraines. 14.History of breast surgery. 15.History of coronary artery disease/stent. 16.History of ORIF. 17.History of 3 cardiac stents. 18.History of anxiety, bipolar mood disorder. 19.History of nicotine dependence. 20.History of THC. 21.FULL CODE. RECOMMENDATIONS AND DISCUSSION: This 71-year-old woman who presented with multiple complex medical issues, we will monitor the patient closely. Continue the current medications, continue symptomatic treatment. The patient has obviously breakthrough seizures. I would recommend a neurology consultation. Patient also had history of recent breast cancer treatment, the current status unknown. I would recommend evaluation with Dr. Russ. PT/OT evaluation. Symptomatic treatment for pain will be obtained and orthopedic evaluation for clavicle fracture and back pain and other associated medical issues. Guarded prognosis because of multiple complex medical issues. Further recommendations to follow. See orders for details. PT/OT evaluation, possible ECF rehab. A copy of this dictation being forwarded to Dr. Nancy Chavez who is the primary physician. MMODL / IJN: [id number] / [facility]
[2021-07-23] MEDS: SODIUM CHLORIDE 0.9% 1,000 ML IV SCH ×2 (02:34→18:49)
[2021-07-23 07:23] LABS: Basophils % (A) 1 %; Eosinophils # (A) 0.1 k/uL (0-0.7); Eosinophils % (A) 1 %; HCT 31.1 % (34.0-46.0); Lymphocytes # (A) 1.3 k/uL (1.0-4.8); Lymphocytes % (A) 25 %; MCH 34.8 pg (25.0-35.0); MCHC 33.8 g/dL (31.0-37.0); Macrocytosis Slight; Mean Platelet Volume 6.7; Monocytes # (A) 0.3 k/uL (0-1.0); Monocytes % (A) 6 %; Neutrophils # (A) 3.3 k/uL (1.3-7.7); Neutrophils % (A) 64 %; Platelet Count 227 k/uL (150-450); RBC 3.02 m/uL (3.80-5.40); RDW 15.2 % (11.5-15.5); WBC 5.1 k/uL (3.8-10.6)
[2021-07-23 07:27] LABS: HGB 10.5 gm/dL (11.4-16.0); MCV 102.8 fL (80.0-100.0)
[2021-07-23] MEDS: HYDROcodone/APAP 5-325MG 1 EACH TAB PO PRN ×2 (08:37→20:09)
[2021-07-23] MEDS: clonazePAM 1 MG TAB PO PRN ×2 (08:38→17:26)
[2021-07-23] MEDS: OXcarbazepine 300 MG TAB PO SCH ×2 (08:39→20:09)
[2021-07-23] MEDS: levETIRAcetam 500 MG TAB PO SCH ×2 (08:39→20:09)
[2021-07-23] MEDS: FOLIC ACID 1 MG TAB PO SCH (08:39)
[2021-07-23] MEDS: PARoxetine 20 MG TAB PO SCH (08:40)
[2021-07-23] MEDS: carvediloL 6.25 MG TAB PO SCH ×2 (08:40→17:08)
[2021-07-23] MEDS: ASPIRIN 81 MG PO SCH (08:40)
[2021-07-23] MEDS: ISOSORBIDE MONONITRATE ER 30 MG TAB.ER.24H PO SCH (08:40)
[2021-07-23] MEDS: MULTIVITAMINS, THERA 1 EACH TAB PO SCH (08:40)
[2021-07-23] MEDS: PANTOPRAZOLE 40 MG TABLET PO SCH (08:40)
[2021-07-23] MEDS: NICOTINE 14MG/24HR PATCH TRANSDERM SCH (08:41)
[2021-07-23] MEDS: HEPARIN SODIUM,PORCINE/PF 5,000 UNIT/0.5 ML SYRINGE SQ SCH ×3 (08:41→20:13)
[2021-07-23] MEDS: ONDANSETRON 4 MG TAB PO PRN (08:46)
[2021-07-23 09:24] LABS: ALT 8 U/L (8-44); AST 11 U/L (13-35); African American GFR (CKD) 99.6 (60.0-200.0); Albumin 3.3 g/dL (3.8-4.9); Albumin/Globulin Ratio 2.36 (1.60-3.17); Alkaline Phosphatase 71 U/L (41-126); BUN/Creat Ratio 16.43 Ratio (12.00-20.00); Blood Urea Nitrogen 11.5 mg/dL (9.0-27.0); Calcium 8.3 mg/dL (8.7-10.3); Carbon Dioxide 20.4 mmol/L (20.0-27.5); Chloride 111 mmol/L (96-109); Globulin 1.4 g/dL (1.6-3.3); Glucose 81 mg/dL (70-110); Potassium 3.9 mmol/L (3.5-5.5); Sodium 143 mmol/L (135-145); Total Bilirubin <0.20 mg/dL (0.30-1.20); Total Protein 4.7 g/dL (6.2-8.2)
[2021-07-23] MEDS: ATORVASTATIN 20 MG TAB PO SCH (09:55)
--- NOTE | 2021-07-23 10:17 | P.CNNES ---
History of Present Illness Consult date: 07/23/21 Requesting physician: Rebekah Smallwood Reason for Consult: seizure History of Present Illness: This is a 71-year-old woman with medical history of seizure, right breast cancer (diagnosed Apr or May 2020) s/p mastectomy, coronary artery disease status post stent, diabetes mellitus, hyperlipidemia, myocardial infarction, chronic back pain, tobacco use who presented emergency department on 07/21/2021 multiple complaints. Patient is a poor historian and some of the history is obtained from medical record. One of the complaint is that she had a seizure recently with a fall about 10 days ago prior to presenting the hospital and has been having a lot of pain, she's been having back pain left shoulder pain. She is also feeling generalized weakness. Regarding her seizure patient stated that that she is on Keppra 500 mg 1 tablet twice a day and Trileptal 300 mg a tablet twice a day. Patient denies that she sees a neurologist and she said that her seizures are diagnosed and managed by her primary care physician. Regarding her seizure description she states that she just passes out but denies any urinary, bowel incontinence she denies any tongue bite or soreness of tongue. She denies being told that she had the any jerk in of any extremities to her knowledge. She denies any aura. She cannot tell me how long this been going on for bite and she thinks it's a couple years she told the nurse that her medication was the recently modified for seizure but upon asking her she said no. She said that the she has a lot of stress and anxiety and having issues with her daughter. Patient other home medication consist of Klonopin 1 mg 1 tablet twice a day when necessary (for anxiety), [place] 7.5 one tablet twice a day when necessary, vitamin D 2, Crestor 10 mg daily, Paxil 40 mg daily, aspirin 81 mg, Coreg, Imdur . Of note patient she had a routine EEG on 08/12/2015 in our facility and it's reported as normal. Regarding the patient history of right breast cancer she refused chemotherapy per prior record (Dr. Aiken's note) but he notified me that she had that a chemotherapy and radiation therapy and has been a while since she got chemotherapy and radiation therapy. Some other workup in the hospital consisted of: Initial vital signs was blood pressure 139/71, heart rate of 82, temperature of 99.1 Fahrenheit oral, respiratory rate of 20, pulse ox of 99% room air. CT of the head is reported as negative. I personally reviewed the CT of the head and there is no acute or subacute ischemia and there is no at proximal hemorrhage. CT of the cervical spine is also reported as negative. Lumbar x-rays reported as there is some spondylosis at L1-L2 no fracture seen. Left clavicle fractures reported as on [facility] fracture of the lateral and of the left clavicle without significant change in position compared to old exam. Fracture lines still visible. CBC with differential on presentation is negative. Chemistry panel is creatinine is up 0.80, glucose is 113 otherwise the rest of chemistry panel is unremarkable Urinalysis is a leukocyte esterases large, urine white blood cell is 88 and urine bacteria was moderate assist possible suggestive of urinary tract infection. Rotavirus patient was not detected. Review of Systems Review of system: The 12 point system was reviewed and apparent positive and negative per HPI. Past Medical History Past Medical History: Coronary Artery Disease (CAD), Diabetes Mellitus, GE RD/Reflux, Hyperlipidemia, Myocardial Infarction ([place]) Additional Past Medical History / Comment(s): Dx rt breast CA December 2019- radiation and chemo, fx ankle November 2019, MIGRAINES, chronic back pain, gout Last Myocardial Infarction Date:: unk History of Any Multi-Drug Resistant Organisms: None Reported Past Surgical History: Breast Surgery, Heart Catheterization With Stent, Orthopedic Surgery Additional Past Surgical History / Comment(s): ORIF rt ankle -2019, EGD/COLONOSCOPY, bone marrow bx-neg, TOTAL OF 3 CARDIAC STENTS, breast bx; right breast lumpectomy w/AND 01/30/20; Past Anesthesia/Blood Transfusion Reactions: No Reported Reaction Additional Past Anesthesia/Blood Transfusion Reaction / Comment(s): clausterphobia Date of Last Stent Placement:: UNK Past Psychological History: Anxiety, Bipolar Additional Psychological History / Comment(s): mood disorder Smoking Status: Current every day smoker Past Alcohol Use History: None Reported Additional Past Alcohol Use History / Comment(s): Started smoking in her teens; 2ppd, currently smokes around half a pack/day Past Drug Use History: None Reported Additional Drug Use History / Comment(s): Pt. states recreational marijuana use "once every couple months" - Past Family History Son(s) Family Medical History: Cancer Father Family Medical History: Diabetes Mellitus, Myocardial Infarction ([place]) Mother Family Medical History: Cancer, Myocardial Infarction ([place]) Medications and Allergies Home Medications Medication Instructions Recorded Confirmed Type PARoxetine HCL [Paxil] 40 mg PO DAILY 06/24/16 07/21/21 History Isosorbide Mononitrate ER [Imdur] 30 mg PO DAILY 09/02/17 07/21/21 History OXcarbazepine [Trileptal] 300 mg PO BID 02/19/20 07/21/21 History Aspirin EC [Ecotrin Low Dose] 81 mg PO DAILY 09/12/20 07/21/21 History clonazePAM [KlonoPIN] 1 mg PO BID PRN 02/05/21 07/21/21 History traZODone HCL [Desyrel] 100 mg PO HS 02/05/21 07/21/21 History carvediloL [Coreg] 6.25 mg PO AC-BID #60 tab 02/07/21 07/21/21 Rx levETIRAcetam [Keppra] 500 mg PO BID #60 tab 04/12/21 07/21/21 Rx Ergocalciferol (Vitamin D2) 1,250 mcg PO TUFR 07/21/21 07/21/21 History [Drisdol (50,000 Iu)] HYDROcodone/APAP 7.5-325MG [[place] 1 tab PO BID PRN 07/21/21 07/21/21 History 7.5-325] Rosuvastatin Calcium [Crestor] 10 mg PO DAILY 07/21/21 07/21/21 History Allergies Allergy/AdvReac Type Severity Reaction Status Date / Time codeine AdvReac Nausea & Verified 07/21/21 18:07 Vomiting Latex, Natural Rubber AdvReac Rash/Hives/ Verified 07/21/21 18:07 itching Physical Examination - Vital Signs Vital Signs: Vital Signs Temp Pulse Resp BP Pulse Ox 07/23/21 04:45 98.5 F 80 20 103/54 92 L 07/22/21 20:35 98.4 F 77 20 112/62 95 07/22/21 17:35 84 119/58 07/22/21 13:19 98.8 F 86 16 104/54 93 L 07/22/21 10:39 169/80 Intake and Output 07/22/21 07/23/21 07/23/21 22:59 06:59 14:59 Intake Total 100 Balance 100 Intake: Oral 100 Other: Voiding Method Toilet Bedside Commode # Voids 3 2 # Bowel Movements 2 GENERAL: The patient is lying in bed and is not in acute distress. CHEST: The heart rate is regular rate rhythm. No murmurs to auscultation. LUNG: Clear to auscultation bilaterally no wheezing noted throughout. Not labo red breathing. ABDOMEN/GI: Bowel sounds present in all 4 quadrants. No tenderness to palpation throughout. NEUROLOGICAL: Higher mental function: The patient is awake, alert, oriented to self, place and time. Patient is following commands. No aphasia and no neglect. Cranial nerves: The pupils are round, equal and reactive to light and accommodation. Visual scott are full to confrontation throughout. Extraocular movement is intact no nystagmus is noted. Facial sensation is normal to touch throughout. The facial strength is normal throughout. Hearing is normal bilaterally to hand rub. Tongue is midline and moved [id number] without any difficulty. No dysarthria is noted. Shoulder shrug is normal bilaterally. Motor: Gait is deferred. The strength is 5 over 5 throughout. Normal tone and bulk. Cerebellum: Normal finger to nose bilaterally. Sensation: Sensation is normal to touch throughout. Reflexes (right/left): 3+ over bilateral biceps and patellar. Otherwise 2+ throughout. Plantars are downgoing bilaterally. Results - Laboratory Findings CBC and BMP: 07/23/21 06:27 07/23/21 06:27 Abnormal Lab Findings: Abnormal Labs 07/21/21 07/21/21 07/23/21 19:51 19:51 06:27 RBC 3.02 L Hgb 10.5 L D Hct 31.1 L MCV 102.8 H D BUN 20 H Glucose 113 H Urine Ketones 2+ H Ur Leukocyte Esterase Large H Urine WBC 88 H Ur Squamous Epith Cells 5 H Urine Bacteria Moderate H Assessment and Plan Assessment: Reported break-thru Seizure. Unsure if patient truly has seizure or her syncopal episode are non-epileptic in nature. History of reported seizure Likely acute urinary tract infection History of right breast cancer (diagnosed Apr or May 2020) s/p mastectomy chronic back pain History of coronary artery disease status post stent diabetes mellitus and currently serum glucose controlled hyperlipidemia History of myocardial infarction Depression Anxiety tobacco use Plan: Patient is restarted on her home seizure medication of Keppra 500 mg 1 tablet twice a day and Trileptal 300 mg tablet twice a day. I ordered a routine EEG. Ordered MRI of the brain with and without to see if there is any brain metastases from her history of breast cancer. Every 4 hours neuro checks On seizure precautions and seizure pads Regarding her clavicular fracture on the left orthopedic team is consulted Oncology at team is consulted by the primary team We'll defer the rest of medical management to the primary team Upon discharge, the patient needs to follow-up with a neurologist within 1-2 weeks as outpatient. The plan is discussed with the patient's nurse. Will contact her PCP to find out more about her seizure history. Thank you for the consultation. Denver Benitez M.D. Neuro-Hospitalist Time with Patient: Greater than 30
--- NOTE | 2021-07-23 13:16 | P.CNOR ---
History of Present Illness - [facility] Consult date: 07/23/21 Consult reason: fracture, low back pain History of present illness: 71 yo female with hx BCA, chronic low back pain and fall c/o L shoulder pain as well. She states she fell and has had pain in her shoulder. She denies any numbness/tingling, no weakness in LE. Chronic low back pain as well. She states no new sx in regards to this. No bowel/bladder issues. Review of Systems All systems: negative Constitutional: Reports as per HPI Past Medical History Past Medical History: Coronary Artery Disease (CAD), Diabetes Mellitus, GERD/Reflux, Hyperlipidemia, Myocardial Infarction ([place]) Additional Past Medical History / Comment(s): Dx rt breast CA December 2019- radiation and chemo, fx ankle November 2019, MIGRAINES, chronic back pain, gout Last Myocardial Infarction Date:: unk History of Any Multi-Drug Resistant Organisms: None Reported Past Surgical History: Breast Surgery, Heart Catheterization With Stent, Orthopedic Surgery Additional Past Surgical History / Comment(s): ORIF rt ankle , EGD/COLONOSCOPY, bone marrow bx-neg, TOTAL OF 3 CARDIAC STENTS, breast bx; right breast lumpectomy w/AND 01/30/20; Past Anesthesia/Blood Transfusion Reactions: No Reported Reaction Additional Past Anesthesia/Blood Transfusion Reaction / Comm: clausterphobia Date of Last Stent Placement:: UNK Past Psychological History: Anxiety, Bipolar Additional Psychological History / Comment(s): mood disorder Smoking Status: Current every day smoker Past Alcohol Use History: None Reported Additional Past Alcohol Use History / Comment(s): Started smoking in her teens; 2ppd, currently smokes around half a pack/day Past Drug Use History: None Reported Additional Drug Use History / Comment(s): Pt. states recreational marijuana use "once every couple months" - Past Family History Son(s) Family Medical History: Cancer Father Family Medical History: Diabetes Mellitus, Myocardial Infarction ([place]) Mother Family Medical History: Cancer, Myocardial Infarction ([place]) Medications and Allergies Home Medications Medication Instructions Recorded Confirmed Type PARoxetine HCL [Paxil] 40 mg PO DAILY 06/24/16 07/21/21 History Isosorbide Mononitrate ER [Imdur] 30 mg PO DAILY 09/02/17 07/21/21 History OXcarbazepine [Trileptal] 300 mg PO BID 02/19/20 07/21/21 History Aspirin EC [Ecotrin Low Dose] 81 mg PO DAILY 09/12/20 07/21/21 History clonazePAM [KlonoPIN] 1 mg PO BID PRN 02/05/21 07/21/21 History traZODone HCL [Desyrel] 100 mg PO HS 02/05/21 07/21/21 History carvediloL [Coreg] 6.25 mg PO AC-BID #60 tab 02/07/21 07/21/21 Rx levETIRAcetam [Keppra] 500 mg PO BID #60 tab 04/12/21 07/21/21 Rx Ergocalciferol (Vitamin D2) 1,250 mcg PO TUFR 07/21/21 07/21/21 History [Drisdol (50,000 Iu)] HYDROcodone/APAP 7.5-325MG [[place] 1 tab PO BID PRN 07/21/21 07/21/21 History 7.5-325] Rosuvastatin Calcium [Crestor] 10 mg PO DAILY 07/21/21 07/21/21 History Allergies Allergy/AdvReac Type Severity Reaction Status Date / Time codeine AdvReac Nausea & Verified 07/21/21 18:07 Vomiting Latex, Natural Rubber AdvReac Rash/Hives/ Verified 07/21/21 18:07 itching Physical Examination Osteopathic Statement: *. No significant issues noted on an osteopathic structural exam other than those noted in the History and Physical/Consult. Patient is alert and oriented 3 appears well-nourished well-hydrated is in no acute distress. They does not appear septic. On exam the patient has no tenderness to palpation of her thoracic or lumbar spine. There is no edema or ballottement sign. Lower extremities with 5 out of 5 strength in all major muscle groups Upper extremities show 5/5 strength in all major muscle groups. Except for left shoulder due to fracture with pain which is There is FROM that is painless of the b/l UE and LE in all major joints. They are intact to light touch sensation in L2 to S1 nerve distribution as well as C5 to T1 Patient has palpable dorsalis pedis was posterior tibial pulses. Compartments are soft and compressible. Patient shows a negative Homans, Waldron's, negative Babinski's negative clonus bilaterally. negative straight leg raise bilaterally. No tensioning signs. Cranial nerves II through XII are grossly intact. Overall alignment is well-maintained in the sagittal coronal planes. Bony crepitance over the left distal clavicle Results Imaging demonstrates a left distal clavicular fracture which is displaced. No CC or AC ligament disruption. No evidence of pathologic fracture at this time. Lumbar films show no fracture-dislocation maintained alignment no lesions - Labs Labs: Abnormal Lab Results - Last 24 Hours (Table) 07/23/21 07/23/21 Range/Units 06:27 06:27 RBC 3.02 L (3.80-5.40) m/uL Hgb 10.5 L D (11.4-16.0) gm/dL Hct 31.1 L (34.0-46.0) % MCV 102.8 H D (80.0-100.0) fL Chloride 111 H (96-109) mmol/L Calcium 8.3 L (8.7-10.3) mg/dL Total Bilirubin <0.20 L (0.30-1.20) mg/dL AST 11 L (13-35) U/L Total Protein 4.7 L (6.2-8.2) g/dL Albumin 3.3 L (3.8-4.9) g/dL Globulin 1.4 L (1.6-3.3) g/dL H & H 07/21/21 07/23/21 Range/Units 19:51 06:27 Hgb 13.5 10.5 L D (11.4-16.0) gm/dL Hct 38.9 31.1 L (34.0-46.0) % Result Diagrams: 07/23/21 06:27 07/23/21 06:27 Assessment and Plan Assessment: Chronic low back pain Left distal clavicle fracture, nonoperative Multiple medical comorbidities Plan: At this time I recommend conservative measures physical therapy occupational therapy pain control sling for left upper extremity as needed range of motion left shoulder as needed weightbearing as tolerated no surgical intervention planned.
--- NOTE | 2021-07-23 13:32 | P.CN ---
Psychiatric Consult - . Consult date: 07/23/21 Consult:: 07/23/21 13:32 IDENTIFYING DATA: This patient is a , retired, 71-year-old female with significant history of seizure disorder, depression, and anxiety who presented to the hospital with multiple complaints including weakness, pain, and seizure. HISTORY OF PRESENT ILLNESS: The patient presented to the hospital on 07/21/21, brought in to the hospital on her own volition due to numerous complaints. Patient reportedly had a seizure with a fall approximately 10 days prior to her presentation in the emergency department. She expressed numerous issues including back pain, clavicle/shoulder pain, as well as right breast pain. Psychiatry has been consulted for evaluation and management depression/anxiety. Upon evaluation on the medical floor, the patient reports that she has been experiencing ongoing stress in regards to relationship with her family, in particular relationship with her children. She reports that the stress has been building up significantly and this led to worsening mood and depression. She does report that she has been crying frequently and having a decreased appetite. She reports that the decreased appetite can be attributed to both her mood as well as her physical pain. Currently, she is not reporting any suicidal or homicidal ideation, intention, and/or plan. She vehemently denies any previous attempts at suicide. She reports no auditory or visual hallucinations. She denies any significant symptoms of judy or hypomania. She denies any history of increased goal-directed activity, pressured speech, grandiosity, or impulsive behaviors. The patient currently follows with Dr. Hensley for outpatient psychiatric treatment and reports that her mental health is generally stable despite the ongoing struggles with her relationship with her family. She is currently m aintained on a regimen of Paxi, trazodone, l and Klonopin for depression and anxiety and also receives Trileptal for seizure disorder. PAST PSYCHIATRIC HISTORY: Patient has a history of depression and anxiety. The patient has been on a regimen of Trileptal, Paxil, Klonopin and trazodone for many years. Patient denies any previous psychiatric hospitalizations. She is currently open with Dr. Hensley's office. Patient denies any history of suicide attempts in the past. PAST MEDICAL HISTORY: Past Medical History: Coronary Artery Disease (CAD), Diabetes Mellitus, GERD/ Reflux, Hyperlipidemia, Myocardial Infarction ([place]) Additional Past Medical History / Comment(s): Dx rt breast CA December 2019-takes chemo Po, radiation completed 1 month ago, fx ankle November 2019-has boot (states boot cannot be removed)on rt ankle-uses walker and WBAT, hx7-16-15 pancreatitis. other MIGRAINES, chronic back pain, gout Last Myocardial Infarction Date:: unk History of Any Multi-Drug Resistant Organisms: None Reported Past Surgical History: Breast Surgery, Heart Catheterization With Stent, Orthopedic Surgery Additional Past Surgical History / Comment(s): ORIF rt ankle , EGD/COLONOSCOPY, bone marrow bx-neg, TOTAL OF 3 CARDIAC STENTS, breast bx; right breast lumpectomy w/AND 01/30/20; Past Anesthesia/Blood Transfusion Reactions: No Reported Reaction Additional Past Anesthesia/Blood Transfusion Reaction / Comment(s): clausterphobia Date of Last Stent Placement:: UNK Past Psychological History: Anxiety, Bipolar Smoking Status: Current every day smoker Past Alcohol Use History: None Reported Past Drug Use History: None Reported ALLERGIES: Codeine, latex, rubber CHEMICAL DEPENDENCY HISTORY: The patient admits to one pack per day tobacco use. She denies any alcohol use. She reports very rare marijuana use. She denies any other drug use. FAMILY PSYCHIATRIC/SUBSTANCE USE HISTORY: Patient reports no significant family psychiatric history. SOCIAL HISTORY: Patient was born and raised in [place], [place]. She is for many years. She has 3 adult children. She currently receives Social Security. 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 She currently lives by herself. MENTAL STATUS EXAM: General Appearance: Patient appears to be stated age is alert, pleasant, and cooperative. Patient appears to have fair hygiene and grooming wearing hospital gown with fair eye contact. Behavior: Patient is calmly lying in bed without any agitated behavior. Speech: Patient's speech is fluent and nonpressured. Mood/Affect: Patient reports their mood is "a little stressed out", affect is bright and friendly Suicidality/Homicidality: Patient denies having any suicidal or homicidal ideation intent or plan. Perceptions: Patient denies any visual hallucinations and denies any auditory hallucinations Though content/process: There is no evidence of any delusional thought content and thought process is linear and goal-directed. Memory and concentration: AOX3, grossly intact for the purposes of this session. Can spell "WORLD" backwards Judgment and insight: Fair Vital Signs Temp 98.2 F 07/23/21 11:24 Pulse 65 07/23/21 11:24 Resp 18 07/23/21 11:24 BP 129/53 07/23/21 11:24 Pulse Ox 97 07/23/21 11:24 Intake & Output 07/22/21 07/23/21 07/23/21 18:59 06:59 18:59 Intake Total 100 Balance 100 Intake: Oral 100 Other: Voiding Method Toilet Bedside Commode # Voids 3 2 # Bowel Movements 2 Laboratory Results - Last 24 Hours 07/23/21 07/23/21 06:27 06:27 WBC 5.1 RBC 3.02 L Hgb 10.5 L D Hct 31.1 L MCV 102.8 H D MCH 34.8 MCHC 33.8 RDW 15.2 Plt Count 227 MPV 6.7 Neutrophils % 64 Lymphocytes % 25 Monocytes % 6 Eosinophils % 1 Basophils % 1 Neutrophils # 3.3 Lymphocytes # 1.3 Monocytes # 0.3 Eosinophils # 0.1 Basophils # 0.0 Macrocytosis Slight Sodium 143 Potassium 3.9 Chloride 111 H Carbon Dioxide 20.4 Anion Gap 11.60 BUN 11.5 Creatinine 0.7 Est GFR (CKD-EPI)AfAm 99.6 Est GFR (CKD-EPI)NonAf 86.0 BUN/Creatinine Ratio 16.43 Glucose 81 Calcium 8.3 L Total Bilirubin <0.20 L AST 11 L ALT 8 Alkaline Phosphatase 71 Total Protein 4.7 L Albumin 3.3 L Globulin 1.4 L Albumin/Globulin Ratio 2.36 IMPRESSIONS: Major depressive disorder, with anxious features Urinary tract infection History of right breast cancer status post mastectomy Seizure disorder PLAN: -At this time patient DOES NOT meet criteria for inpatient psychiatric admission. -Delirium precautions recommended with patient including - avoiding use of narcotics and SCISSORS SHARPENER sedatives, limit anticholinergic medications when possible, frequent re-orientation, minimize use of restraints, open window shades during the day and close them at night -Would recommend the following medication changes/additions: We will continue the patient's current psychotropic medication regimen of Paxil, trazodone, and Klonopin. We will start Remeron 7.5 mg at bedtime to aid in appetite stimulation. Risks, benefits, and shouldn't alternatives of this medication was discussed with patient in detail. -Recommend outpatient psychiatric follow-up with Dr. Hensley's office. -Psychiatry will sign off at this point, please contact with any questions. 07/23/21 13:32
[2021-07-23] MEDS ORDERED: LORazepam 2 MG/ML INJ IV STA (13:40)
--- NOTE | 2021-07-23 14:41 | EEG ---
ELECTROENCEPHALOGRAM REPORT DATE OF SERVICE: 07/23/2021. CLINICAL HISTORY: This is a 71-year-old woman with history of seizure who reports having breakthrough seizure about 10 days prior to presenting the hospital. The video EEG is obtained to evaluate for seizure epileptiform activity. EEG TYPE: A routine 21 channel EEG performed with video using the 10/20 electrode system. RELEVANT MEDICATION: Keppra and Trileptal. DESCRIPTION: Awake state is only obtained. During the awake state, the background consists of low to moderate voltage that is well modulated, well sustained of 8-9 hertz activity. There is no physiological stage 2 sleep architecture seen. There is no focal slowing. Interictal and ictal is none. ACTIVATION PROCEDURE: Photic stimulation did evoke a posterior driving response at 10 hertz activity. There is no abnormality during the photic stimulation. Hyperventilation is not performed. CLINICAL INTERPRETATION: This is a normal routine awake EEG. There are no focal slowing, epileptiform discharges or seizure on the study. Clinical correlation is recommended. MMPEPE / CLAUDIAN: [id number] / MTDMindy
--- NOTE | 2021-07-23 16:38 | P.CONS ---
History of Present Illness - Reason for Consult Consult date: 07/23/21 Breast Cancer Requesting physician: Rebekah Smallwood - History of Present Illness Mrs. Cole follows with Dr. Atwood for history of Breast Cancer. She presented to hospital after seizure and found to have Gram neg bacilli UTI. Review of Systems ROS unobtainable: due to mental status Past Medical History Past Medical History: Coronary Artery Disease (CAD), Diabetes Mellitus, GERD/Reflux, Hyperlipidemia, Myocardial Infarction ([place]) Additional Past Medical History / Comment(s): Dx rt breast CA December 2019- radiation and chemo, fx ankle November 2019, MIGRAINES, chronic back pain, gout Last Myocardial Infarction Date:: unk History of Any Multi-Drug Resistant Organisms: None Reported Past Surgical History: Breast Surgery, Heart Catheterization With Stent, Orthopedic Surgery Additional Past Surgical History / Comment(s): ORIF rt ankle -2019, EGD/COLONOSCOPY, bone marrow bx-neg, TOTAL OF 3 CARDIAC STENTS, breast bx; right breast lumpectomy w/AND 01/30/20; Past Anesthesia/Blood Transfusion Reactions: No Reported Reaction Additional Past Anesthesia/Blood Transfusion Reaction / Comm: clausterphobia Date of Last Stent Placement:: UNK Past Psychological History: Anxiety, Bipolar Additional Psychological History / Comment(s): mood disorder Smoking Status: Current every day smoker Past Alcohol Use History: None Reported Additional Past Alcohol Use History / Comment(s): Started smoking in her teens; 2ppd, currently smokes around half a pack/day Past Drug Use History: None Reported Additional Drug Use History / Comment(s): Pt. states recreational marijuana use "once every couple months" - Past Family History Son(s) Family Medical History: Cancer Father Family Medical History: Diabetes Mellitus, Myocardial Infarction ([place]) Mother Family Medical History: Cancer, Myocardial Infarction ([place]) Medications and Allergies Home Medications Medication Instructions Recorded Confirmed Type PARoxetine HCL [Paxil] 40 mg PO DAILY 06/24/16 07/21/21 History Isosorbide Mononitrate ER [Imdur] 30 mg PO DAILY 09/02/17 07/21/21 History OXcarbazepine [Trileptal] 300 mg PO BID 02/19/20 07/21/21 History Aspirin EC [Ecotrin Low Dose] 81 mg PO DAILY 09/12/20 07/21/21 History clonazePAM [KlonoPIN] 1 mg PO BID PRN 02/05/21 07/21/21 History traZODone HCL [Desyrel] 100 mg PO HS 02/05/21 07/21/21 History carvediloL [Coreg] 6.25 mg PO AC-BID #60 tab 02/07/21 07/21/21 Rx levETIRAcetam [Keppra] 500 mg PO BID #60 tab 04/12/21 07/21/21 Rx Ergocalciferol (Vitamin D2) 1,250 mcg PO TUFR 07/21/21 07/21/21 History [Drisdol (50,000 Iu)] HYDROcodone/APAP 7.5-325MG [Jolo 1 tab PO BID PRN 07/21/21 07/21/21 History 7.5-325] Rosuvastatin Calcium [Crestor] 10 mg PO DAILY 07/21/21 07/21/21 History Allergies Allergy/AdvReac Type Severity Reaction Status Date / Time codeine AdvReac Nausea & Verified 07/21/21 18:07 Vomiting Latex, Natural Rubber AdvReac Rash/Hives/ Verified 07/21/21 18:07 itching Physical Exam Vitals: Vital Signs Temp Pulse Resp BP Pulse Ox 07/23/21 11:24 98.2 F 65 18 129/53 97 07/23/21 04:45 98.5 F 80 20 103/54 92 L 07/22/21 20:35 98.4 F 77 20 112/62 95 07/22/21 17:35 84 119/58 Intake and Output 07/23/21 07/23/21 07/23/21 06:59 14:59 22:59 Intake Total 100 Balance 100 Intake: Oral 100 Other: # Voids 2 - Constitutional General appearance: no acute distress - EENT Eyes: EOMI ENT: hard of hearing - Neck Neck: normal ROM - Respiratory Respiratory: bilateral: diminished - Cardiovascular Rhythm: regularly irregular - Gastrointestinal General gastrointestinal: soft - Integumentary Integumentary: pale - Psychiatric poor historian Results CBC & Chem 7: 07/23/21 06:27 07/23/21 06:27 Labs: Abnormal Lab Results - Last 24 Hours (Table) 07/23/21 07/23/21 Range/Units 06:27 06:27 RBC 3.02 L (3.80-5.40) m/uL Hgb 10.5 L D (11.4-16.0) gm/dL Hct 31.1 L (34.0-46.0) % MCV 102.8 H D (80.0-100.0) fL Chloride 111 H (96-109) mmol/L Calcium 8.3 L (8.7-10.3) mg/dL Total Bilirubin <0.20 L (0.30-1.20) mg/dL AST 11 L (13-35) U/L Total Protein 4.7 L (6.2-8.2) g/dL Albumin 3.3 L (3.8-4.9) g/dL Globulin 1.4 L (1.6-3.3) g/dL Microbiology - Last 24 Hours (Table) 07/21/21 19:51 Urine Culture - Preliminary Urine,Voided Gram Neg Bacilli Assessment and Plan (1) History of breast cancer Current Visit: Yes Status: Acute Code(s): Z85.3 - PERSONAL HISTORY OF MALIGNANT NEOPLASM OF BREAST SNOMED Code(s): 498724297 (2) Seizure Current Visit: Yes Status: Acute Code(s): R56.9 - UNSPECIFIED CONVULSIONS SNOMED Code(s): 07172761 (3) UTI (urinary tract infection) Current Visit: Yes Status: Acute Code(s): N39.0 - URINARY TRACT INFECTION, SITE NOT SPECIFIED SNOMED Code(s): 83352198 (4) Fall Current Visit: No Status: Acute Code(s): W19.XXXA - UNSPECIFIED FALL, INITIAL ENCOUNTER SNOMED Code(s): 6326587 Plan: All acute problems at this time per Neurology and primary team Await MRI of the brain for assessment of metastatic disease
--- NOTE | 2021-07-23 16:56 | PN ---
PROGRESS NOTE DATE OF SERVICE: 07/23/2021 This 71-year-old woman is admitted with paresthesia, is being closely monitored. Dr. Benitez is following the patient closely. EEG was done which showed normal routine awake EKG. The patient is slightly confused as well. Psychiatry saw the patient. The patient has significant visual difficulties, but the patient is able to walk to the bathroom and such. The patient also had evidence of UTI and the patient was on antibiotics. No chest pain. No palpitations. No fever. PHYSICAL EXAMINATION: Alert and oriented times three. Pulse 65, blood pressure 119/53, respiration 18, temperature 98.4, pulse ox 97% on room air. HEENT: Conjunctivae normal. Neck: No JVD. Cardiovascular: S1, S2 muffled. Respiratory: Breath sounds diminished in the bases. A few scattered rhonchi. Abdomen: Soft, nontender. Legs: No edema. No swelling. Nervous system: No focal deficits. LABS: WBC 5.1, hemoglobin 10.5, sodium 143, potassium 3.9. ASSESSMENT: 1. Seizures and breakthrough seizures. 2. Acute urinary tract infection with sepsis, possible sepsis present on admission. 3. Change in mental status, acute metabolic encephalopathy multifactorial secondary to seizures or sepsis. 4. Diminished p.o. intake. 5. Severe back pain, degenerative joint disease. 6. Left clavicular fracture. 7. History of coronary artery disease. 8. Diabetes mellitus, type 2. 9. Gastroesophageal reflux disease. 10.Hyperlipidemia. 11.History of myocardial infarction. 12.History of breast cancer with radiation and chemo. 13.History of migraines. 14.History of breast surgery. 15.History of coronary artery disease/stent. 16.History of ORIF. 17.History of three cardiac stents. 18.History of anxiety, bipolar mood disorder. 19.History of nicotine dependence. 20.History of THC. 21.FULL CODE. RECOMMENDATIONS AND DISCUSSION: Continue current medications, management and symptomatic treatment. Otherwise, at this time, I recommend symptomatic treatment. Continue antibiotics. Follow the cultures. Multiple consultants are requested to evaluate. I would also recommend PT/OT and oncology social work consultation for possible rehab also. Prognosis guarded. Further recommendations to follow. MMODL / IJN: [id number] /
--- NOTE | 2021-07-23 18:51 | MR ---
EXAMINATION TYPE: MR brain wo/w con DATE OF EXAM: 07/23/2021 COMPARISON: None HISTORY: Seizure, hx breast cancer, evaluate for metastatic disease. CONTRAST: Standard multiplanar, multisequence MRI departmental protocol images were obtained without contrast a nd with 6 mL intravenous Gadavist gadolinium contrast. There is mild cerebral atrophy. There is no mass effect or midline shift. There is no sign of intracr anial hemorrhage. Diffusion images show no evidence of an acute infarct. On the T2 images and FLAIR images there are scattered white matter high signal foci measuring up to 4 mm in both cerebral hemispheres. Total number is less than 20 the skull base is intact. There is nor mal appearance of the brainstem. Brainstem is intact. There is no evidence of posterior fossa mass. There is normal enhancement of the venous sinuses. There is no pathologic intracranial enhancement. IMPRESSION: Mild cerebral atrophy. Scattered white matter signal changes could relate to foci of microvascular is chemia or demyelinating disease. No evidence of intracranial metastatic disease.
[2021-07-23] MEDS: traZODone HCL 100 MG TAB PO SCH (20:10)
[2021-07-23] MEDS ORDERED: MIRTAZAPINE 15 MG TAB PO SCH (21:00)
[2021-07-23] MEDS: HYDROmorphone 1 MG/ML 1 ML SYRINGE IVP PRN (23:26)
[2021-07-24] MEDS: SODIUM CHLORIDE 0.9% 1,000 ML IV SCH (04:35)
[2021-07-24] MEDS: HEPARIN SODIUM,PORCINE/PF 5,000 UNIT/0.5 ML SYRINGE SQ SCH ×2 (08:32→08:44)
[2021-07-24] MEDS: ASPIRIN 81 MG PO SCH (08:33)
[2021-07-24] MEDS: MULTIVITAMINS, THERA 1 EACH TAB PO SCH (08:33)
[2021-07-24] MEDS: PANTOPRAZOLE 40 MG TABLET PO SCH (08:33)
[2021-07-24] MEDS: OXcarbazepine 300 MG TAB PO SCH (08:33)
[2021-07-24] MEDS: carvediloL 6.25 MG TAB PO SCH (08:33)
[2021-07-24] MEDS: ISOSORBIDE MONONITRATE ER 30 MG TAB.ER.24H PO SCH (08:34)
[2021-07-24] MEDS: FOLIC ACID 1 MG TAB PO SCH (08:34)
[2021-07-24] MEDS: ATORVASTATIN 20 MG TAB PO SCH (08:34)
[2021-07-24] MEDS: HYDROcodone/APAP 5-325MG 1 EACH TAB PO PRN (08:34)
[2021-07-24] MEDS: NICOTINE 14MG/24HR PATCH TRANSDERM SCH (08:34)
[2021-07-24] MEDS: levETIRAcetam 500 MG TAB PO SCH (08:34)
[2021-07-24] MEDS: PARoxetine 20 MG TAB PO SCH (08:34)
[2021-07-24] MEDS: HYDROmorphone 1 MG/ML 1 ML SYRINGE IVP PRN ×3 (08:42→15:56)
[2021-07-24 10:14] LABS: Basophils % (A) 1 %; Eosinophils # (A) 0.1 k/uL (0-0.7); Eosinophils % (A) 3 %; HCT 34.3 % (34.0-46.0); HGB 11.6 gm/dL (11.4-16.0); Lymphocytes % (A) 25 %; MCHC 33.7 g/dL (31.0-37.0); MCV 100.9 fL (80.0-100.0); Macrocytosis Slight; Monocytes # (A) 0.3 k/uL (0-1.0); Monocytes % (A) 8 %; Neutrophils # (A) 2.4 k/uL (1.3-7.7); Neutrophils % (A) 60 %; Platelet Count 207 k/uL (150-450); RDW 14.3 % (11.5-15.5)
--- NOTE | 2021-07-24 11:10 | P.PN ---
Subjective Progress Note Date: 07/24/21 The patient is seen at bedside and per the patient's nurse she has been the same and no seizure like activity. Patient is seeing a psychiatrist as outpatient. The showcase trimmer stated that patient was complaining to her about her daughter and regarding patient's history of ?seizure it is still unknown if she truly has history of seizure. The fruit loader contacted the patient visiting physician and they stated they are not treating for seizure disorder. They stated she was complaining of back pain and depression. I spoke with the visiting physician and they stated she had diagnosis of seizure prior to them seeing her. They started seeing her in end of 04/2021. She is currently seeing Dr. Bishop (visiting physician) and I spoke Kim. Objective - Vital Signs Vital signs: Vital Signs Temp 98.2 F 07/24/21 04:40 Pulse 72 07/24/21 04:40 Resp 20 07/24/21 04:40 BP 127/57 07/24/21 04:40 Pulse Ox 95 07/24/21 04:40 Intake & Output 07/23/21 07/24/21 07/24/21 18:59 06:59 18:59 Intake Total 200 Balance 200 Intake: Oral 200 Other: Voiding Method Toilet Bedside Commode # Voids 3 1 - Exam GENERAL: The patient is lying in bed and is not in acute distress. NEUROLOGICAL: Higher mental function: The patient is awake, alert, oriented to self, place and time. Patient is following commands. No aphasia and no neglect. Cranial nerves: The pupils are round, equal and reactive to light and accommodation. Visual scott are full to confrontation throughout. Extraocular movement is intact no nystagmus is noted. Facial sensation is normal to touch throughout. The facial strength is normal throughout. Hearing is normal bilaterally to hand rub. Tongue is midline and moved [id number] without any difficulty. No dysarthria is noted. Shoulder shrug is normal bilaterally. Motor: Gait is deferred. The strength is 5 over 5 throughout. Normal tone and bulk. Cerebellum: Normal finger to nose bilaterally. Sensation: Sensation is normal to touch throughout. Reflexes (right/left): 3+ over bilateral biceps and patellar. Otherwise 2+ throughout. Plantars are downgoing bilaterally. WORK-UP: CT of the head is reported as negative. I personally reviewed the CT of the head and there is no acute or subacute ischemia and there is no at proximal hemorrhage. CT of the cervical spine is also reported as negative. Lumbar x-rays reported as there is some spondylosis at L1-L2 no fracture seen. Left clavicle fractures reported as on [place] fracture of the lateral and of the left clavicle without significant change in position compared to old exam. Fracture lines still visible. CBC with differential on presentation is negative. Chemistry panel is creatinine is up 0.80, glucose is 113 otherwise the rest of chemistry panel is unremarkable Urinalysis is a leukocyte esterases large, urine white blood cell is 88 and urine bacteria was moderate assist possible suggestive of urinary tract inf ection. Coronavirus patient was not detected. MRI of the brain with and without is reported as mild cerebral atrophy. Scattered white matter signal change could relate to foci of microvascular ischemia or do mind disease. No evidence of intracranial metastasis disease. I posterior reviewed the MRI of the brain and there is no acute or subacute ischemia and the patient does not have any brain mass seen on contrast. Regarding the scattered white matter signal change I feel it's due to more lucian rovascular disease. Routine EEG on 07/23/2021 is normal. There are no focal slowing, epileptiform d ischarges or seizure on EEG - Labs CBC & Chem 7: 07/24/21 09:31 07/23/21 06:27 Labs: Abnormal Lab Results - Last 24 Hours (Table) 07/24/21 Range/Units 09:31 RBC 3.40 L (3.80-5.40) m/uL MCV 100.9 H (80.0-100.0) fL Microbiology - Last 24 Hours (Table) 07/21/21 19:51 Urine Culture - Final Urine,Voided Escherichia coli 07/22/21 20:17 Blood Culture - Preliminary Blood No Growth after 24 hours Assessment and Plan Assessment: Reported break-thru Seizure (10 days prior to this admission). Unsure if patient truly has seizure or her syncopal episode are non-epileptic in nature. History of reported seizure Acute urinary tract infection History of right breast cancer (diagnosed Apr or May 2020) s/p mastectomy chronic back pain History of coronary artery disease status post stent diabetes mellitus and currently serum glucose controlled hyperlipidemia History of myocardial infarction Major Depression with anxious features tobacco use Plan: * Patient is restarted on her home seizure medication of Keppra 500 mg 1 tablet twice a day and Trileptal 300 mg tablet twice a day. I spoke with the visiting physician team and they stated that she had a diagnosis prior to them the seeing the patient. It's unknown person that diagnosed with seizure. Currently her routine EEG is normal and her MRI the brain is a negative for stroke or brain metastasis. I will order a 2-1/2 hour EEG as an outpatient (will be coordinated by regulatory technician) and recommend the patient to follow-up with Dr. Crouch for further neurological care for ?seizure. * Every 4 hours neuro checks * On seizure precautions and seizure pads * Psychiatry team is on board. * Regarding her clavicular fracture on the left orthopedic team is consulted * Oncology at team is consulted by the primary team * We'll defer the rest of medical management to the primary team * Upon discharge, the patient needs to follow-up with a neurologist within 1-2 weeks as outpatient. The plan is discussed with the patient's primary team and her visiting physician team. There is no further neurological work-up. Denver Benitez M.D. Neuro-Hospitalist Time with Patient: Less than 30
[2021-07-24 11:42] VITALS: BP 133/74; PULSE 68; RESP 18; TEMP 97.9
--- NOTE | 2021-07-24 14:42 | P.DS ---
Providers Date of admission: 07/23/21 08:28 Expected date of discharge: 07/24/21 Attending physician: Rebekah Smallwood Consults: 07/22/21 19:06 Consult Physician Routine Consulting Provider: Denver Benitez Consult Reason/Comments: seizure Do you want consulting provider notified?: Yes Consult Physician Routine Consulting Provider: Sotero Butler Consult Reason/Comments: BACK PAIN, CLAVICULAR FRACTURE Do you want consulting provider notified?: Yes Consult Physician Routine Consulting Provider: Glenn Russ Consult Reason/Comments: malignancy Do you want consulting provider notified?: Yes 07/23/21 10:06 Consult Physician Routine Consulting Provider: Psychiatry - [facility] Psychiatry Consult Reason/Comments: anxiety/depression Do you want consulting provider notified?: Yes Primary care physician: Lucien Bishop Hospital Course: Final Diagnosis seizures And breakthrough seizures Acute urinary tract infection with sepsis, possible sepsis present on admission Change in mental status, acute metabolic encephalopathy, multi-factorial secondary to seizures or sepsis Diminished oral intake Severe back pain, degenerative joint disease Left clavicular fracture History of coronary artery disease Diabetes mellitus type II Hyperlipidemia Gastroesophageal reflux disease History of breast cancer with radiation and chemo therapy History of myocardial infarction History of coronary artery disease/stent History of anxiety, bipolar mood disorder History of three cardiac stents History of nicotine dependence History of THC Full code Discharge disposition Patient is being discharged in a stable condition with guarded prognosis to [facility] for continued PT/OT therapy. Patient will follow-up with Dr. York in the outpatient setting upon discharge. Patient to continue on oral ceftin 500mg bid for the next three days to complete the course. Patient will need neurology and oncology follow up outpatient. Recommend repeat labs for CBC and CMP in the outpatient setting. Total time taken is greater than 35 minutes. Hospital course This is a 71-year-old female who was recently admitted with with parasthesia and admitted for further evaluation. Patient was followed closely by neurology and recommending close outpatient follow up with her neurologist. Patient is to continue with current medications. Patient was also found to have a UTI with ecoli growing and was on IV antibiotics and will transition to oral ceftin 500mg twice daily for the next 3 days to complete the course. Patient weak and evaluated by PT/OT therapy recommending rehab for strength and mobility. Patient is now agreeable and social work is following. Recommend repeat labs to monitor CBC and bmp closely. Currently no reports of chest pain, shortness of breath, or palpitations. Patient is afebrile. No reports of nausea or vomiting and patient is tolerating diet. Patient will be going to [facility] on the pham today. Guarded prognosis. On exam vital signs are stable. Cardio S1, S2 are muffled. Respiratory system shows diminished breath sounds at the bases with no wheezing or rhonchi noted. Abdomen is soft and nontender. Nervous system shows diffuse weakness. Please refer to medication reconciliation sheet for a list of medications. Patient Condition at Discharge: Stable Plan - Discharge Summary Discharge Rx Participant: Yes New Discharge Prescriptions: New Nicotine 14Mg/24Hr Patch [Habitrol] 1 patch TRANSDERM DAILY #20 patch Thiamine [Vitamin B-1] 100 mg PO DAILY #30 tablet Ondansetron [Zofran] 4 mg PO Q6HR PRN #10 tab PRN Reason: Nausea And Vomiting Cefuroxime Axetil [Ceftin] 500 mg PO BID 3 Days #6 tab Folic Acid 1 mg PO DAILY@1200 #30 tab Multivitamins, Thera [Multivitamin (formulary)] 1 each PO DAILY@1200 #30 tab Continue PARoxetine HCL [Paxil] 40 mg PO DAILY Isosorbide Mononitrate ER [Imdur] 30 mg PO DAILY OXcarbazepine [Trileptal] 300 mg PO BID Aspirin EC [Ecotrin Low Dose] 81 mg PO DAILY traZODone HCL [Desyrel] 100 mg PO HS Ergocalciferol (Vitamin D2) [Drisdol (50,000 Iu)] 1,250 mcg PO TUFR clonazePAM [KlonoPIN] 1 mg PO BID PRN PRN Reason: Anxiety carvediloL [Coreg] 6.25 mg PO AC-BID #60 tab levETIRAcetam [Keppra] 500 mg PO BID #60 tab Rosuvastatin Calcium [Crestor] 10 mg PO DAILY HYDROcodone/APAP 7.5-325MG [[place] 7.5-325] 1 tab PO BID PRN PRN Reason: Pain Discharge Medication List PARoxetine HCL [Paxil] 40 mg PO DAILY 06/24/16 [History] Isosorbide Mononitrate ER [Imdur] 30 mg PO DAILY 09/02/17 [History] OXcarbazepine [Trileptal] 300 mg PO BID 02/19/20 [History] Aspirin EC [Ecotrin Low Dose] 81 mg PO DAILY 09/12/20 [History] clonazePAM [KlonoPIN] 1 mg PO BID PRN 02/05/21 [History] traZODone HCL [Desyrel] 100 mg PO HS 02/05/21 [History] carvediloL [Coreg] 6.25 mg PO AC-BID #60 tab 02/07/21 [Rx] levETIRAcetam [Keppra] 500 mg PO BID #60 tab 04/12/21 [Rx] Ergocalciferol (Vitamin D2) [Drisdol (50,000 Iu)] 1,250 mcg PO TUFR 07/21/21 [History] HYDROcodone/APAP 7.5-325MG [[place] 7.5-325] 1 tab PO BID PRN 07/21/21 [History] Rosuvastatin Calcium [Crestor] 10 mg PO DAILY 07/21/21 [History] Cefuroxime Axetil [Ceftin] 500 mg PO BID 3 Days #6 tab 07/24/21 [Rx] Folic Acid 1 mg PO DAILY@1200 #30 tab 07/24/21 [Rx] Multivitamins, Thera [Multivitamin (formulary)] 1 each PO DAILY@1200 #30 tab 07/24/21 [Rx] Nicotine 14Mg/24Hr Patch [Habitrol] 1 patch TRANSDERM DAILY #20 patch 07/24/21 [Rx] Ondansetron [Zofran] 4 mg PO Q6HR PRN #10 tab 07/24/21 [Rx] Thiamine [Vitamin B-1] 100 mg PO DAILY #30 tablet 07/24/21 [Rx] Follow up Appointment(s)/Referral(s): Elda Charles [NON-STAFF] - 1 Week Lucien Bishop MD [Primary Care Provider] - 1-2 days Dionicio Corona MD [STAFF PHYSICIAN] - 1 Week Ambulatory/Diagnostic Orders: Complete Blood Count w/diff [LAB.AMB] Time Frame: 3 Days, Location: None Selected Activity/Diet/Wound Care/Special Instructions: Patient is going to [facility] on the pham Activity as tolerated follow up with primary care provider on discharge follow up with your neurologist in one week continue taking medications as prescribed continue current diet follow up oncology outpatient repeat labs in 2-3 days Discharge Disposition: HOME WITH HOME HEALTH SERVICES
[2021-07-24] MEDS: clonazePAM 1 MG TAB PO PRN (15:58)
== END 2021-07-24 16:30 | disposition home health service (06) | DRG 871 ==
LOC: EC 15:23 → 5NMEDONC 22:25 → OBSVTOIN 07-23 08:28
PROVIDERS: ADMIT Hospitalist; ATTEND Hospitalist
DX: A41.51 Sepsis due to Escherichia coli [E. coli] (principal); G93.41 Metabolic encephalopathy; N39.0 Urinary tract infection, site not specified; R56.9 Unspecified convulsions; E11.9 Type 2 diabetes mellitus without complications; F39 Unspecified mood [affective] disorder; Z20.822 Contact with and (suspected) exposure to COVID-19; E86.0 Dehydration; S42.032A Displaced fracture of lateral end of left clavicle, initial encounter for closed fracture; N64.4 Mastodynia; M47.816 Spondylosis without myelopathy or radiculopathy, lumbar region; I25.10 Atherosclerotic heart disease of native coronary artery without angina pectoris; K21.9 Gastro-esophageal reflux disease without esophagitis; E78.5 Hyperlipidemia, unspecified; G43.909 Migraine, unspecified, not intractable, without status migrainosus; W19.XXXA Unspecified fall, initial encounter; M47.896 Other spondylosis, lumbar region; G89.29 Other chronic pain; M10.9 Gout, unspecified; F17.210 Nicotine dependence, cigarettes, uncomplicated; I25.2 Old myocardial infarction; F12.90 Cannabis use, unspecified, uncomplicated; F31.9 Bipolar disorder, unspecified; F41.8 Other specified anxiety disorders; Z88.5 Allergy status to narcotic agent; Z91.040 Latex allergy status; Z79.82 Long term (current) use of aspirin; Z79.899 Other long term (current) drug therapy; Z82.49 Family history of ischemic heart disease and other diseases of the circulatory system; Z83.3 Family history of diabetes mellitus; Z85.3 Personal history of malignant neoplasm of breast; Z86.2 Personal history of diseases of the blood and blood-forming organs and certain disorders involving the immune mechanism; Z95.5 Presence of coronary angioplasty implant and graft; Z92.3 Personal history of irradiation; G31.89 Other specified degenerative diseases of nervous system
CPT/HCPCS: 36415; 70450; 70553; 71045; 72110; 72125; 80053; 81001; 83605; 85025; 87040; 87077; 87086; 87186; 87635; 95816; 96361; 96374; 96375; 99285

== ENCOUNTER 2021-08-18 18:56 | Emergency (ER) | payer MEDICARE, OTHER ==
[2021-08-18 19:08] VITALS: RESP 18; TEMP 99
[2021-08-18] MEDS ORDERED: ASPIRIN 81 MG PO STA (20:03)
[2021-08-18] MEDS ORDERED: MORPHINE SULFATE 4 MG/ML SYRINGE IV STA (20:03)
[2021-08-18] MEDS ORDERED: SODIUM CHLORIDE 0.9% 1,000 ML IV STA (20:03)
[2021-08-18] MEDS ORDERED: levETIRAcetam IV 1,000 MG in SALINE 1 100ML.BAG IVPB STA (20:04)
[2021-08-18 20:56] LABS: Basophils % (A) 1 %; Eosinophils # (A) 0.1 k/uL (0-0.7); Eosinophils % (A) 3 %; HGB 13.4 gm/dL (11.4-16.0); Lymphocytes # (A) 0.9 k/uL (1.0-4.8); Lymphocytes % (A) 24 %; MCH 34.6 pg (25.0-35.0); MCHC 35.1 g/dL (31.0-37.0); MCV 98.4 fL (80.0-100.0); Mean Platelet Volume 6.8; Monocytes # (A) 0.2 k/uL (0-1.0); Monocytes % (A) 5 %; Neutrophils # (A) 2.4 k/uL (1.3-7.7); Neutrophils % (A) 65 %; Platelet Count 200 k/uL (150-450); RBC 3.86 m/uL (3.80-5.40); RDW 12.9 % (11.5-15.5); WBC 3.6 k/uL (3.8-10.6)
[2021-08-18 21:06] LABS: INR 0.9 (<1.2); Partial Thromboplastin Time 23.7 sec (22.0-30.0)
[2021-08-18 21:14] LABS: ALT 14 U/L (4-34); AST 32 U/L (14-36); African American GFR (CKD) >90 (>60 ml/min/1.73 sqM); Albumin 3.7 g/dL (3.5-5.0); Alcohol <10 mg/dL; Alkaline Phosphatase 62 U/L (38-126); Anion Gap 5 mmol/L; Blood Urea Nitrogen 13 mg/dL (7-17); Calcium 9.1 mg/dL (8.4-10.2); Carbon Dioxide 24 mmol/L (22-30); Chloride 98 mmol/L (98-107); Glucose 107 mg/dL (74-99); Magnesium 1.9 mg/dL (1.6-2.3); Non-African American GFR(CKD) 81 (>60 ml/min/1.73 sqM); Sodium 127 mmol/L (137-145); Total Bilirubin 0.6 mg/dL (0.2-1.3); Total Protein 6.1 g/dL (6.3-8.2)
[2021-08-18 21:19] LABS: Potassium 4.6 mmol/L (3.5-5.1)
--- NOTE | 2021-08-18 21:19 | XR ---
EXAMINATION TYPE: XR chest 2V DATE OF EXAM: 08/18/2021 COMPARISON: 07/22/2021 HISTORY: Pain TECHNIQUE: Single view FINDINGS: Heart is normal. Lungs are clear of infiltrate. There is no heart failure. Thoracic aorta i s atheromatous. There are no hilar masses. There is no evidence of pleural effusion. There is old unu nited fracture lateral left clavicle. IMPRESSION: No active cardiopulmonary disease. No change.
--- NOTE | 2021-08-18 21:24 | XR ---
EXAMINATION TYPE: XR pelvis AP view DATE OF EXAM: 08/18/2021 COMPARISON: NONE HISTORY: Fall. Pain TECHNIQUE: Single view FINDINGS: Pelvic ring is intact. Proximal femurs and hip joints are intact and sacroiliac joints are intact. IMPRESSION: Negative pelvis x-ray exam. No fracture.
--- NOTE | 2021-08-18 22:12 | CT ---
EXAMINATION TYPE: CT brain wo con DATE OF EXAM: 08/18/2021 COMPARISON: 07/21/2021 HISTORY: ams, confusion CT DLP: 1044.4 mGycm Automated exposure control for dose reduction was used. Images of the brain obtained without contrast. Ventricles have normal size. There is no mass effect or midline shift. There is no sign of intracrani al hemorrhage. Calvarium is intact. There is normal aeration of the mastoid sinuses. IMPRESSION: Negative CT scan of the brain. No change.
[2021-08-18] MEDS ORDERED: MORPHINE SULFATE 4 MG/ML SYRINGE IVP STA (22:17)
--- NOTE | 2021-08-18 22:59 | ED ---
General Adult HPI - General Chief complaint: Psychiatric Symptoms Stated complaint: Mental Health Time Seen by Provider: 08/18/21 19:26 Source: patient, EMS, RN notes reviewed, old records reviewed Limitations: no limitations - History of Present Illness Initial comments: Patient is a 71-year-old female with past medical history remarkable for chronic pain, seizure disorder who presents emergency Department complaining of chronic pain as well as depression. A friend recently . She is continuing to have her chronic pain. States it makes her daily life difficult. She "can't take it anymore". Denies any suicidal or homicidal ideations, attempts, plans. Denies any visual or auditory hallucinations. Denies any chest pain, abdominal pain, nausea, vomiting. His chronic back pain, chronic hip pain, chronic leg pain. States she occasionally has seizures but is unable to tell me when the last seizure she had was. States she hit her head at that time. She is actively crying when I talk with her. She does appear depressed. She otherwise is in no acute physical distress. She presented over concern for her chronic pain as well as what appears to be depression. - Related Data Home Medications Medication Instructions Recorded Confirmed PARoxetine HCL [Paxil] 40 mg PO DAILY 06/24/16 08/18/21 Isosorbide Mononitrate ER [Imdur] 30 mg PO DAILY 09/02/17 08/18/21 OXcarbazepine [Trileptal] 300 mg PO BID 02/19/20 08/18/21 Aspirin EC [Ecotrin Low Dose] 81 mg PO DAILY 09/12/20 08/18/21 traZODone HCL [Desyrel] 100 mg PO HS 02/05/21 08/18/21 Ergocalciferol (Vitamin D2) 1,250 mcg PO TUFR 07/21/21 08/18/21 [Drisdol (50,000 Iu)] Rosuvastatin Calcium [Crestor] 10 mg PO DAILY 07/21/21 08/18/21 Folic Acid 1 mg PO DAILY 08/18/21 08/18/21 clonazePAM [KlonoPIN] 1 - 2 mg PO DAILY PRN 08/18/21 08/18/21 Previous Rx's Medication Instructions Recorded carvediloL [Coreg] 6.25 mg PO AC-BID #60 tab 02/07/21 levETIRAcetam [Keppra] 500 mg PO BID #60 tab 04/12/21 HYDROcodone/APAP 7.5-325MG [[place] 1 tab PO BID PRN #6 tab 07/24/21 7.5-325] Ondansetron [Zofran] 4 mg PO Q6HR PRN #10 tab 07/24/21 Pantoprazole [Protonix] 40 mg PO AC-BRKFST tab 07/24/21 Allergies Allergy/AdvReac Type Severity Reaction Status Date / Time codeine AdvReac Nausea & Verified 08/18/21 21:49 Vomiting Latex, Natural Rubber AdvReac Rash/Hives/ Verified 08/18/21 21:49 itching Review of Systems ROS Statement: Those systems with pertinent positive or pertinent negative responses have been documented in the HPI. Review of Systems: CONST: Denies fever EYES: Denies blurry vision ENT: Denies nasal congestion C/V: Denies Chest pain RESP: Denies shortness of breath GI: Denies abdominal pain : Denies dysuria SKIN: Denies rash. MSK: Endorses chronic joint pain. NEURO: Denies headache PSYCH: Denies suicidal and homicidal ideations/plans/attempts. Denies visual or auditory hallucinations. ROS Other: All systems not noted in ROS Statement are negative. Past Medical History Past Medical History: Coronary Artery Disease (CAD), Diabetes Mellitus, GERD/Reflux, Hyperlipidemia, Myocardial Infarction ([place]) Additional Past Medical History / Comment(s): Dx rt breast CA December 2019- radiation and chemo, fx ankle November 2019, MIGRAINES, chronic back pain, gout Last Myocardial Infarction Date:: unk History of Any Multi-Drug Resistant Organisms: None Reported Past Surgical History: Breast Surgery, Heart Catheterization With Stent, Orthopedic Surgery Additional Past Surgical History / Comment(s): ORIF rt ankle -2019, EGD/COLONOSCOPY, bone marrow bx-neg, TOTAL OF 3 CARDIAC STENTS, breast bx; right breast lumpectomy w/AND 01/30/20; Past Anesthesia/Blood Transfusion Reactions: No Reported Reaction Additional Past Anesthesia/Blood Transfusion Reaction / Comment(s): clausterphobia Date of Last Stent Placement:: UNK Past Psychological History: Anxiety, Bipolar Smoking Status: Current every day smoker Past Alcohol Use History: None Reported Past Drug Use History: None Reported - Past Family History Son(s) Family Medical History: Cancer Father Family Medical History: Diabetes Mellitus, Myocardial Infarction ([place]) Mother Family Medical History: Cancer, Myocardial Infarction ([place]) General Exam - General Exam Comments Initial Comments: General: Currently crying. No physical distress. HEAD: Normal with no signs of head trauma. EYES: PERRLA, EOMI, conjunctiva normal, no discharge. Pupils are 3 mm equal bilaterally. ENT: Hearing grossly intact, normal oropharynx. RESPIRATORY: Clear breath sounds bilaterally. No wheezes, rales, or rhonchi. C/V: Regular rate and rhythm. S1 and S2 auscultated, no edema, peripheral pulses 2+ and intact throughout ABD: Abd is soft, nontender, nondistended EXT: Normal range of motion, no obvious deformity. Patient is no midline back tenderness to palpation. Does have some mild left hip tenderness palpation. No tenderness to palpation over the lower extremities. She states she will have left ankle pain secondary to a prior surgery but has really not tender to palpation. States it causes difficulty with ambulation. SKIN: No rashes or lesions observed on exposed skin. NEURO: Alert and oriented x 4. Cranial nerves II-XII intact. No focal sensory or strength deficits. Patient is ambulating to the bathroom and back. No focal deficits. Limitations: no limitations Course Vital Signs 08/18/21 08/18/21 19:02 23:02 Temperature 99.0 F Pulse Rate 59 L 75 Respiratory 18 18 Rate Blood Pressure 144/59 153/82 O2 Sat by Pulse 100 100 Oximetry Medical Decision Making - Medical Decision Making Based on the patient's presentation and physical exam, she has multiple complaints, but they'll send to stem from chronic pain. She has complaining of depression at this time as well. We will obtain basic laboratory studies as screening mechanisms. CT brain as well as chest x-ray and pelvic x-ray will be obtained. She'll be given IV fluids as well as IV analgesia and aspirin. She was in agreement this plan. EKG showed no signs of acute ischemia. Chest x-ray and pelvis x-ray showed no acute fractures or subluxations. Brain CT showed no acute intracranial process. Laboratory studies were remarkable for a mild hyponatremia of 127 which is being treated with her bolus of normal saline. Alcohol is negative. Troponin is negative. Remainder of the labs are unremarkable. On reevaluation, I discussed with the patient that her laboratory studies and imaging are within normal limits. No acute processes were found. The patient is medically cleared for evaluation by psychiatry at this time. She did express understanding. Disposition is pending psychiatric evaluation. Psychiatry evaluated the patient and she does not meet any inpatient criteria. Patient will be discharged home at this time. She expressed understanding. I explained she can take her chronic pain medications for her chronic pain. I instructed the patient to follow up with their PCP in the next 3 days. I explained that the patient should return to the emergency department if they experience any worsening symptoms. Strict return precautions were discussed with the patient. The patient expressed understanding of these instructions. I answered all questions that the patient had. The patient was discharged home in good condition with their prescriptions and follow up information. - Lab Data Result diagrams: 08/18/21 20:48 08/18/21 20:48 Lab Results 08/18/21 08/18/21 08/18/21 Range/Units 20:48 20:48 20:48 WBC 3.6 L (3.8-10.6) k/uL RBC 3.86 (3.80-5.40) m/uL Hgb 13.4 (11.4-16.0) gm/dL Hct 38.0 (34.0-46.0) % MCV 98.4 (80.0-100.0) fL MCH 34.6 (25.0-35.0) pg MCHC 35.1 (31.0-37.0) g/dL RDW 12.9 (11.5-15.5) % Plt Count 200 (150-450) k/uL MPV 6.8 Neutrophils % 65 % Lymphocytes % 24 % Monocytes % 5 % Eosinophils % 3 % Basophils % 1 % Neutrophils # 2.4 (1.3-7.7) k/uL Lymphocytes # 0.9 L (1.0-4.8) k/uL Monocytes # 0.2 (0-1.0) k/uL Eosinophils # 0.1 (0-0.7) k/uL Basophils # 0.0 (0-0.2) k/uL PT 10.0 (9.0-12.0) sec INR 0.9 (<1.2) APTT 23.7 (22.0-30.0) sec Sodium 127 L (137-145) mmol/L Potassium 4.6 (3.5-5.1) mmol/L Chloride 98 (98-107) mmol/L Carbon Dioxide 24 (22-30) mmol/L Anion Gap 5 mmol/L BUN 13 (7-17) mg/dL Creatinine 0.74 (0.52-1.04) mg/dL Est GFR (CKD-EPI)AfAm >90 (>60 ml/min/1.73 sqM) Est GFR (CKD-EPI)NonAf 81 (>60 ml/min/1.73 sqM) Glucose 107 H (74-99) mg/dL Calcium 9.1 (8.4-10.2) mg/dL Magnesium 1.9 (1.6-2.3) mg/dL Total Bilirubin 0.6 (0.2-1.3) mg/dL AST 32 (14-36) U/L ALT 14 (4-34) U/L Alkaline Phosphatase 62 (38-126) U/L Troponin I (0.000-0.034) ng/mL Total Protein 6.1 L (6.3-8.2) g/dL Albumin 3.7 (3.5-5.0) g/dL Serum Alcohol <10 mg/dL 08/18/21 Range/Units 20:48 WBC (3.8-10.6) k/uL RBC (3.80-5.40) m/uL Hgb (11.4-16.0) gm/dL Hct (34.0-46.0) % MCV (80.0-100.0) fL MCH (25.0-35.0) pg MCHC (31.0-37.0) g/dL RDW (11.5-15.5) % Plt Count (150-450) k/uL MPV Neutrophils % % Lymphocytes % % Monocytes % % Eosinophils % % Basophils % % Neutrophils # (1.3-7.7) k/uL Lymphocytes # (1.0-4.8) k/uL Monocytes # (0-1.0) k/uL Eosinophils # (0-0.7) k/uL Basophils # (0-0.2) k/uL PT (9.0-12.0) sec INR (<1.2) APTT (22.0-30.0) sec Sodium (137-145) mmol/L Potassium (3.5-5.1) mmol/L Chloride (98-107) mmol/L Carbon Dioxide (22-30) mmol/L Anion Gap mmol/L BUN (7-17) mg/dL Creatinine (0.52-1.04) mg/dL Est GFR (CKD-EPI)AfAm (>60 ml/min/1.73 sqM) Est GFR (CKD-EPI)NonAf (>60 ml/min/1.73 sqM) Glucose (74-99) mg/dL Calcium (8.4-10.2) mg/dL Magnesium (1.6-2.3) mg/dL Total Bilirubin (0.2-1.3) mg/dL AST (14-36) U/L ALT (4-34) U/L Alkaline Phosphatase (38-126) U/L Troponin I <0.012 (0.000-0.034) ng/mL Total Protein (6.3-8.2) g/dL Albumin (3.5-5.0) g/dL Serum Alcohol mg/dL - EKG Data -: EKG Interpreted by Me EKG Comments: 12-lead Electrocardiogram Interpretation Note EKG was reviewed and interpreted by myself. 12-lead ECG performed at 2100 is interpreted by me as revealing normal sinus rhythm at a rate of 68 beats per minute. Hydes is normal. [place] interval is 174 ms, QRS duration is 84 ms, QTc is 427 ms.. There were no ST or T wave abnormalities to suggest myocardial ischemia or injury. R wave progression across the precordium was satisfactory. By my interpretation this EKG is non-diagnostic for acute ischemia. Disposition Clinical Impression: Depression, Chronic pain Disposition: HOME SELF-CARE Condition: Good Is patient prescribed a controlled substance at d/c from ED?: No Referrals: Lucien Bishop MD [Primary Care Provider] - 1-2 days
[2021-08-18 23:03] VITALS: BP 153/82; PULSE 75
[2021-08-19 04:44] LABS: Urine Alcohol Negative (Negative); Urine Barbiturate Negative (Negative); Urine Cocaine Negative (Negative); Urine Methadone Negative (Negative); Urine Opiates Positive (Negative); Urine Phencyclidine Negative (Negative)
== END 2021-08-18 23:32 | disposition home or self-care (01) ==
LOC: EC 18:56
DX: F32.A Depression, unspecified (principal); G89.29 Other chronic pain; E11.9 Type 2 diabetes mellitus without complications; I25.10 Atherosclerotic heart disease of native coronary artery without angina pectoris; I25.2 Old myocardial infarction; E78.5 Hyperlipidemia, unspecified; K21.9 Gastro-esophageal reflux disease without esophagitis; F41.9 Anxiety disorder, unspecified; F17.200 Nicotine dependence, unspecified, uncomplicated; Z79.82 Long term (current) use of aspirin; Z79.899 Other long term (current) drug therapy; Z88.5 Allergy status to narcotic agent
CPT/HCPCS: 82075; 36415; 93005; 80053; 83735; 84484; 85025; 85610; 85730; 80306; 72170; 71046; 70450; 99285; 96365; 96366; 96375; 96376; G0480; J2270; J1953; 80320

== ENCOUNTER → 2021-09-16 | Outpatient (CLI) | payer MEDICARE, OTHER ==
--- NOTE | 2021-09-18 12:31 | MM ---
Reason for exam: screening (asymptomatic). Last mammogram was performed 2 years ago. History: Patient is postmenopausal and has history of breast cancer at age 69. Family history of breast cancer in mother. Malignant US breast surgical specimen RT of the right breast, January 30, 2020. Malignant MG pre op needle loc RT of the right breast, January 30, 2020. Malignant US breast localization RT of the right breast, January 30, 2020. Lumpectomy of the right breast, January 30, 2020. Malignant US breast needle core addl RT of the right breast, September 20, 2019. Malignant US biopsy breast VAD RT of the right breast, September 20, 2019. Taking antineoplastic beginning at age 69. Physical Findings: A clinical breast exam by your physician is recommended on an annual basis and results should be correlated with mammographic findings. MG 3D Screening Mammo W/Cad Bilateral CC and MLO view(s) were taken. XCCL view(s) were taken of the right breast. Prior study comparison: September 20, 2019, right breast MG diagnostic mammo RT wo CAD. Finding: There are heterogeneous, grouped/clustered calcifications in the right breast consistent with post radiation changes. Asymmetric breast tissue greater in the left breast. Thick skin right breast. No significant changes in finding since September 20, 2019. ASSESSMENT: Benign, BI-RAD 2 RECOMMENDATION: Routine screening mammogram of both breasts in 1 year.
== END | disposition home or self-care (01) ==
LOC: RADMAMWWP 13:51
PROVIDERS: ATTEND Internal Medicine Hematology & Oncology
DX: Z12.31 Encounter for screening mammogram for malignant neoplasm of breast (principal); Z78.0 Asymptomatic menopausal state; Z85.3 Personal history of malignant neoplasm of breast; Z80.3 Family history of malignant neoplasm of breast
CPT/HCPCS: 77063; 77067

== ENCOUNTER → 2021-09-17 | Outpatient (CLI) | payer MEDICARE, OTHER ==
--- NOTE | 2021-09-17 14:32 | NM ---
EXAMINATION TYPE: NM bone scan whole body DATE OF EXAM: 09/17/2021 COMPARISON: 09/14/2020 HISTORY: Breast cancer Delayed whole-body scanning was performed following the injection of 26 mCi Tc 99m MDP. Images acqui red 4 hours post injection. FINDINGS: Areas of new increased uptake: Focal intense uptake noted at the left distal clavicle or AC joint whi ch could be degenerative in nature however underlying lesion is not excluded. Radiographic correlatio n is advised. Increased uptake at L2 as well as the left-sided pedicles of L3 and L4 which also could be degenerative in nature. Radiographic correlation is advised. Stable increased uptake: Bilateral shoulders and sternoclavicular joints as well as the ankles and mi d feet. Progressive areas of increased uptake: None Improved areas of increased uptake: None IMPRESSION: Increased uptake as discussed above for which radiographic correlation is advised.
== END | disposition home or self-care (01) ==
LOC: RADNMMAIN 09:55
PROVIDERS: ATTEND Internal Medicine Hematology & Oncology
DX: C50.411 Malignant neoplasm of upper-outer quadrant of right female breast (principal)
CPT/HCPCS: 78306; A9503

== ENCOUNTER → 2021-10-03 | Outpatient (CLI) | payer MEDICARE, OTHER ==
--- NOTE | 2021-10-03 11:14 | BD ---
EXAMINATION TYPE: Axial Bone Density DATE OF EXAM: 10/03/2021 COMPARISON: 06/09/2006 report. CLINICAL HISTORY: 71 years year old Female. ICD-10 CODE: C50.411 Malignant neoplasm of upper-outer quadrant of right Height: 60.7 IN Weight: 129 LBS FRAX RISK QUESTIONS: History of Fracture in Adulthood: LT FOOT AND ANKLE AGE 67; LT COLLARBONE AGE 70; Secondary Osteoporosis: 3. Menopause before 45: AGE 36 Current Tobacco Use: YES RISK FACTORS HISTORY OF: Active: LIMITED Postmenopausal woman: AGE 36 Frequent falls: FALLS DUE TO SEIZURES. UNDER CONTROL NOW MEDICATIONS: Additional Medications: FOLIC ACID, CANVEDILOL, ONDANSETRON, ISOSORBIDE, MISOPROSTOL, CRESTOR, TRAZOD ONE, PAXIL,COLNAZEPAN Additional History: BREAST CANCER WITH CHEMO AND RADIATION EXAM MEASUREMENTS: Bone mineral densitometry was performed using the [employer] System. Bone mineral density as measured about the Lumbar spine is: ----- L1-L4(G/cm2): 1.172 T Score Values are as follows: ----- L1: -0.3 ----- L2: 0.2 ----- L3: 0.0 ----- L4: -0.2 ----- L1-L4: -0.1 Bone mineral density has: Decreased -6.6% since study of: 06/09/2006 Bone mineral density about the R hip (g/cm2): 0.710 Bone mineral density about the L hip (g/cm2): 0.710 T Score values are as follows: -----R Neck: -2.4 -----L Neck: -2.4 -----R Total: -2.4 -----L Total: -2.2 Bone mineral density has: Decreased -20.4% since study of: 06/09/2006 FRAX%s: The graph provided illustrates a 24.7 chance for a major osteoporotic fx and a 10.0 chance fo r the hips probability for fx in 10 years time. IMPRESSION: Osteopenia (T Score between -2.5 and -1). There is slightly increased risk of fracture and the patient may be considered for treatment. Re-Screen 2-5 years. NOTE: T-SCORE=SD OF THE YOUNG ADULT MEAN.
== END | disposition home or self-care (01) ==
LOC: RADBDWWP 10:03
PROVIDERS: ATTEND Internal Medicine Hematology & Oncology
DX: M85.89 Other specified disorders of bone density and structure, multiple sites (principal); C50.411 Malignant neoplasm of upper-outer quadrant of right female breast; Z79.890 Hormone replacement therapy
CPT/HCPCS: 77080

== ENCOUNTER 2022-02-07 06:27 | Observation (INO) | payer MEDICARE, OTHER ==
[2022-02-07] MEDS ORDERED: MORPHINE SULFATE 4 MG/ML SYRINGE IVP STA (06:40)
[2022-02-07] MEDS ORDERED: SODIUM CHLORIDE 0.9% 500 ML 500 ML IV STA (06:40)
[2022-02-07] MEDS ORDERED: ONDANSETRON 4 MG/2 ML VIAL IVP STA (06:40)
--- NOTE | 2022-02-07 06:51 | ED ---
General Adult HPI - General Chief complaint: Shortness of Breath Stated complaint: Chest Pain, SOB Time Seen by Provider: 02/07/22 06:30 Source: patient, EMS, RN notes reviewed Mode of arrival: EMS Limitations: no limitations - History of Present Illness Initial comments: This a 71-year-old female presents emergency Department via EMS with chief complaint of dyspnea, upper back pain, chest pain. Patient states that last 2 days she's had progressive worsening symptoms. Patient is in no cardiac disease, underlying lung disease. Patient states she was given nitro by EMS which improved her blood pressure did not help over back pain. Patient denies any fevers chills no increasing cough she states she was recent cough. Denies any nausea vomiting or constipation or leg pain or leg swelling. Denies any history of aortic aneurysm. - Related Data Home Medications Medication Instructions Recorded Confirmed PARoxetine HCL [Paxil] 40 mg PO DAILY 06/24/16 08/18/21 Isosorbide Mononitrate ER [Imdur] 30 mg PO DAILY 09/02/17 08/18/21 OXcarbazepine [Trileptal] 300 mg PO BID 02/19/20 08/18/21 Aspirin EC [Ecotrin Low Dose] 81 mg PO DAILY 09/12/20 08/18/21 traZODone HCL [Desyrel] 100 mg PO HS 02/05/21 08/18/21 Ergocalciferol (Vitamin D2) 1,250 mcg PO TUFR 07/21/21 08/18/21 [Drisdol (50,000 Iu)] Rosuvastatin Calcium [Crestor] 10 mg PO DAILY 07/21/21 08/18/21 Folic Acid 1 mg PO DAILY 08/18/21 08/18/21 clonazePAM [KlonoPIN] 1 - 2 mg PO DAILY PRN 08/18/21 08/18/21 Previous Rx's Medication Instructions Recorded carvediloL [Coreg] 6.25 mg PO AC-BID #60 tab 02/07/21 levETIRAcetam [Keppra] 500 mg PO BID #60 tab 04/12/21 HYDROcodone/APAP 7.5-325MG [[place] 1 tab PO BID PRN #6 tab 07/24/21 7.5-325] Ondansetron [Zofran] 4 mg PO Q6HR PRN #10 tab 07/24/21 Pantoprazole [Protonix] 40 mg PO AC-BRKFST tab 07/24/21 Allergies Allergy/AdvReac Type Severity Reaction Status Date / Time codeine AdvReac Nausea & Verified 08/18/21 21:49 Vomiting Latex, Natural Rubber AdvReac Rash/Hives/ Verified 08/18/21 21:49 itching Review of Systems ROS Statement: Those systems with pertinent positive or pertinent negative responses have been documented in the HPI. ROS Other: All systems not noted in ROS Statement are negative. Past Medical History Past Medical History: Coronary Artery Disease (CAD), Diabetes Mellitus, GERD/Reflux, Hyperlipidemia, Myocardial Infarction ([place]) Additional Past Medical History / Comment(s): Dx rt breast CA December 2019- radiation and chemo, fx ankle November 2019, MIGRAINES, chronic back pain, gout Last Myocardial Infarction Date:: unk History of Any Multi-Drug Resistant Organisms: None Reported Past Surgical History: Breast Surgery, Heart Catheterization With Stent, Orthopedic Surgery Additional Past Surgical History / Comment(s): ORIF rt ankle -2019, EGD/COLONOSCOPY, bone marrow bx-neg, TOTAL OF 3 CARDIAC STENTS, breast bx; right breast lumpectomy w/AND 01/30/20; Past Anesthesia/Blood Transfusion Reactions: No Reported Reaction Additional Past Anesthesia/Blood Transfusion Reaction / Comment(s): clausterphobia Date of Last Stent Placement:: UNK Past Psychological History: Anxiety, Bipolar Smoking Status: Current every day smoker Past Alcohol Use History: None Reported Past Drug Use History: None Reported - Past Family History Son(s) Family Medical History: Cancer Father Family Medical History: Diabetes Mellitus, Myocardial Infarction ([place]) Mother Family Medical History: Cancer, Myocardial Infarction ([place]) General Exam Limitations: no limitations General appearance: alert, in no apparent distress, anxious Head exam: Present: atraumatic, normocephalic, normal inspection Eye exam: Present: normal appearance, PERRL, EOMI. Absent: scleral icterus, conjunctival injection, periorbital swelling ENT exam: Present: normal exam, normal oropharynx, mucous membranes moist Neck exam: Present: normal inspection, full ROM. Absent: tenderness, meningismus, lymphadenopathy Respiratory exam: Present: decreased breath sounds. Absent: normal lung sounds bilaterally, respiratory distress, wheezes, rales, rhonchi, stridor Cardiovascular Exam: Present: regular rate, normal rhythm, normal heart sounds. Absent: systolic murmur, diastolic murmur, rubs, gallop, clicks GI/Abdominal exam: Present: soft, normal bowel sounds. Absent: distended, tenderness, guarding, rebound, rigid Extremities exam: Absent: pedal edema, calf tenderness Course Vital Signs 02/07/22 02/07/22 06:29 06:45 Temperature 97.9 F Pulse Rate 69 Respiratory 24 26 H Rate Blood Pressure 142/92 O2 Sat by Pulse 100 Oximetry Medical Decision Making - Medical Decision Making 71-year-old female presented from EMS for chest, back pain. Patient was given nitro which alleviated her chest symptoms she continues to complain of back pain which are chronic in nature. I did review prior records which patient's had admissions for back pain no history of aneurysm. Patient did have some relief with medications given vital signs stable. Initial set of cardiac enzymes are negative patient be admitted for cardiac rule out, further management of symptoms. - Lab Data Result diagrams: 02/07/22 06:44 02/07/22 06:44 Lab Results 02/07/22 02/07/22 02/07/22 Range/Units 06:44 06:44 06:44 WBC 4.4 (3.8-10.6) k/uL RBC 3.86 (3.80-5.40) m/uL Hgb 13.1 (11.4-16.0) gm/dL Hct 38.2 (34.0-46.0) % MCV 99.0 (80.0-100.0) fL MCH 33.9 (25.0-35.0) pg MCHC 34.2 (31.0-37.0) g/dL RDW 12.2 (11.5-15.5) % Plt Count 204 (150-450) k/uL MPV 7.1 Neutrophils % 63 % Lymphocytes % 28 % Monocytes % 5 % Eosinophils % 1 % Basophils % 1 % Neutrophils # 2.7 (1.3-7.7) k/uL Lymphocytes # 1.2 (1.0-4.8) k/uL Monocytes # 0.2 (0-1.0) k/uL Eosinophils # 0.1 (0-0.7) k/uL Basophils # 0.0 (0-0.2) k/uL PT 10.2 (9.0-12.0) sec INR 0.9 (<1.2) APTT 23.6 (22.0-30.0) sec D-Dimer 0.27 (<0.60) mg/L FEU Sodium 131 L (137-145) mmol/L Potassium 4.3 (3.5-5.1) mmol/L Chloride 103 (98-107) mmol/L Carbon Dioxide 19 L (22-30) mmol/L Anion Gap 9 mmol/L BUN 15 (7-17) mg/dL Creatinine 0.80 (0.52-1.04) mg/dL Est GFR (CKD-EPI)AfAm 85 (>60 ml/min/1.73 sqM) Est GFR (CKD-EPI)NonAf 74 (>60 ml/min/1.73 sqM) Glucose 133 H (74-99) mg/dL Calcium 9.0 (8.4-10.2) mg/dL Magnesium 1.7 (1.6-2.3) mg/dL Total Bilirubin 0.5 (0.2-1.3) mg/dL AST 23 (14-36) U/L ALT 18 (4-34) U/L Alkaline Phosphatase 79 (38-126) U/L Troponin I (0.000-0.034) ng/mL NT-Pro-B Natriuret Pep pg/mL Total Protein 6.3 (6.3-8.2) g/dL Albumin 4.0 (3.5-5.0) g/dL 02/07/22 02/07/22 Range/Units 06:44 06:44 WBC (3.8-10.6) k/uL RBC (3.80-5.40) m/uL Hgb (11.4-16.0) gm/dL Hct (34.0-46.0) % MCV (80.0-100.0) fL MCH (25.0-35.0) pg MCHC (31.0-37.0) g/dL RDW (11.5-15.5) % Plt Count (150-450) k/uL MPV Neutrophils % % Lymphocytes % % Monocytes % % Eosinophils % % Basophils % % Neutrophils # (1.3-7.7) k/uL Lymphocytes # (1.0-4.8) k/uL Monocytes # (0-1.0) k/uL Eosinophils # (0-0.7) k/uL Basophils # (0-0.2) k/uL PT (9.0-12.0) sec INR (<1.2) APTT (22.0-30.0) sec D-Dimer (<0.60) mg/L FEU Sodium (137-145) mmol/L Potassium (3.5-5.1) mmol/L Chloride (98-107) mmol/L Carbon Dioxide (22-30) mmol/L Anion Gap mmol/L BUN (7-17) mg/dL Creatinine (0.52-1.04) mg/dL Est GFR (CKD-EPI)AfAm (>60 ml/min/1.73 sqM) Est GFR (CKD-EPI)NonAf (>60 ml/min/1.73 sqM) Glucose (74-99) mg/dL Calcium (8.4-10.2) mg/dL Magnesium (1.6-2.3) mg/dL Total Bilirubin (0.2-1.3) mg/dL AST (14-36) U/L ALT (4-34) U/L Alkaline Phosphatase (38-126) U/L Troponin I <0.012 (0.000-0.034) ng/mL NT-Pro-B Natriuret Pep 771 pg/mL Total Protein (6.3-8.2) g/dL Albumin (3.5-5.0) g/dL Disposition Clinical Impression: Back pain, Chest pain Disposition: ADMITTED IP TO THIS [facility] Condition: Fair Referrals: Nancy Chavez MD [STAFF PHYSICIAN] - 1-2 days Time of Disposition: 08:24
[2022-02-07 07:03] LABS: Basophils % (A) 1 %; Eosinophils # (A) 0.1 k/uL (0-0.7); Eosinophils % (A) 1 %; HCT 38.2 % (34.0-46.0); HGB 13.1 gm/dL (11.4-16.0); Lymphocytes # (A) 1.2 k/uL (1.0-4.8); Lymphocytes % (A) 28 %; MCH 33.9 pg (25.0-35.0); MCHC 34.2 g/dL (31.0-37.0); Mean Platelet Volume 7.1; Monocytes # (A) 0.2 k/uL (0-1.0); Monocytes % (A) 5 %; Neutrophils # (A) 2.7 k/uL (1.3-7.7); Neutrophils % (A) 63 %; Platelet Count 204 k/uL (150-450); RBC 3.86 m/uL (3.80-5.40); RDW 12.2 % (11.5-15.5); WBC 4.4 k/uL (3.8-10.6)
[2022-02-07 07:21] LABS: INR 0.9 (<1.2); Partial Thromboplastin Time 23.6 sec (22.0-30.0); Prothrombin Time 10.2 sec (9.0-12.0)
[2022-02-07 07:32] LABS: Magnesium 1.7 mg/dL (1.6-2.3); Potassium 4.3 mmol/L (3.5-5.1); Total Bilirubin 0.5 mg/dL (0.2-1.3); Total Protein 6.3 g/dL (6.3-8.2)
[2022-02-07] MEDS ORDERED: LORazepam 2 MG/ML INJ IV STA (07:42)
--- NOTE | 2022-02-07 07:49 | XR ---
EXAMINATION TYPE: XR chest 2V DATE OF EXAM: 02/07/2022 7:20 AM COMPARISON: Chest radiographs from 08/18/2021. TECHNIQUE: XR chest 2V Frontal and lateral views of the chest. CLINICAL INDICATION:Female, 71 years old with history of difficulty breathing; FINDINGS: Lungs/Pleura: There is no evidence of pleural effusion, focal consolidation, or pneumothorax. Pulmonary vascularity: Unremarkable. Heart/mediastinum: Cardiomediastinal silhouette is unremarkable. Atherosclerotic calcifications are seen in the aorta. Musculoskeletal: No acute osseous pathology. Redemonstration of old ununited fracture of the left lat eral clavicle. IMPRESSION: No acute cardiopulmonary disease/process. No significant change from prior examination.
[2022-02-07] MEDS ORDERED: NITROGLYCERIN SL TABS 0.4 MG TAB SUBLINGUAL PRN (08:25)
[2022-02-07] MEDS ORDERED: HYDROcodone/APAP 7.5-325MG 1 EACH TAB PO PRN (08:26)
[2022-02-07] MEDS ORDERED: ISOSORBIDE MONONITRATE ER 30 MG TAB.ER.24H PO SCH (09:00)
[2022-02-07] MEDS: PARoxetine 20 MG TAB PO SCH (09:58)
[2022-02-07] MEDS: ATORVASTATIN 20 MG TAB PO SCH (09:59)
[2022-02-07] MEDS: OXcarbazepine 300 MG TAB PO SCH ×2 (09:59→20:37)
[2022-02-07] MEDS: levETIRAcetam 500 MG TAB PO SCH ×2 (10:00→20:37)
[2022-02-07] MEDS ORDERED: NALOXONE 0.4 MG/ML 1 ML VIAL IVP PRN (12:35)
[2022-02-07] MEDS ORDERED: MELATONIN 3 MG TABLET PO PRN (12:35)
[2022-02-07] MEDS ORDERED: guaiFENesin 600 MG TABLET.ER PO PRN (12:41)
[2022-02-07] MEDS ORDERED: BENZOCAINE/MENTHOL LOZENG 1 EACH LOZENGE MUCOUS MEM PRN (12:41)
--- NOTE | 2022-02-07 12:41 | P.HPIM ---
History of Present Illness H&P Date: 02/07/22 Patient is a 71-year-old female with a past history of coronary artery disease status post stenting, diabetes, and presented to the ER via EMS with multiple complaints. Patient underwent an extensive evaluation. Initial vital signs were within normal limits. Initial laboratory analysis sodium 133 but was otherwise unremarkable. Initial troponin was negative. EKG June strated normal sinus rhythm normal axis, and normal intervals and no significant ST-T wave changes. Chest x-ray demonstrated no acute process. Patient seen and examined at bedside. She reports that for the last 2 days she has not felt well. She reports that she was lying in bed and developed ret rosternal chest pain with radiation to the left side of her chest. It was associated pain, nausea, shortness of breath, lightheadedness, dizziness, palpitations, diaphoresis, and numbness and tingling down into her arm and into her jaw. She also report runny nose, sore throat, cough, she initially said she had fevers but then states she did not have a thermometer at home but was having night sweats as well as chills. She denies any recent sick contacts. She does live alone. She also reportd poor oral intake that started this morning as well as diarrhea. She denies any dysuria. She follows with Dr. Muro from cardiology. She reports that her mother, father, and sister have all had heart attacks in the past. She did tell nursing that she fell over a dog recently. She did not provide this information for me. Pertinent positives and negatives as discussed in HPI, a complete review of systems was performed and all other systems are negative. Vital signs reviewed General: nontoxic, no distress, appears at stated age Derm: warm, dry Head: atraumatic, normocephalic, symmetric Eyes: EOMI, no lid lag, anicteric sclera, pupils equal round reactive to light ENT: Nose and ears atraumatic, no thrush, no pharyngeal erythema Neck: No thyromegaly, no cervical lymphadenopathy, trachea midline, supple Mouth: no lip lesion, mucus membranes dry Cardiovascular: S1S2 reg, no murmur, positive posterior tibial pulse bilateral, no edema, capillary refill less than 2 seconds Lungs: clear to auscultation bilateral, no rhonchi, no rales, no wheeze, no accessory muscle use Abdominal: soft, +tender to palpation left ribs and right upper quadrant, no guarding, no appreciable organomegaly, normal bowel sounds Ext: no gross muscle atrophy, muscle strength muscle strength 5 out of 5 in all 4 extremities, no contractures Neuro: CN II-XII grossly intact, light touch intact all 4 extremities, finger to nose within normal limits, Psych: Alert, oriented, flat affect Assessment/Plan: Chest pain, back pain - possible anginal equipotent with hx of CAD s/p PCI - Serial trop, tele, ASA, Statin - Cardio consult - add GI cocktail as may be related to GERD Upper respiratory tract infection - check flu and COVID - cepacol - mucinex Hyponatremia, due to dehyrdation - IVF - repeat labs in AM DM 2 - does not appear to be on meds at home - follow BS, SSI HLD - statin Tobacco abuse - cessation - nicotine replacement Bipolar Await home meds to be verified. The patient is admitted with an anticipated less than 2 midnight stay for evaluation of [chest pain]. DVT prophylaxis: SCDs Discussed with: Patient, nursing, ED provider Anticipated discharge date: in AM Anticipated discharge place: home A total of 35 minutes was spent on the care of this complex patient more than 50% of the time was spent in counseling and care coordination. Past Medical History Past Medical History: Coronary Artery Disease (CAD), Diabetes Mellitus, GERD/Reflux, Hyperlipidemia, Myocardial Infarction ([place]) Additional Past Medical History / Comment(s): Dx rt breast CA December 2019- radiation and chemo, fx ankle November 2019, MIGRAINES, chronic back pain, gout Last Myocardial Infarction Date:: unk History of Any Multi-Drug Resistant Organisms: None Reported Past Surgical History: Breast Surgery, Heart Catheterization With Stent, Orthopedic Surgery Additional Past Surgical History / Comment(s): ORIF rt ankle -2019, EGD/COLONOSCOPY, bone marrow bx-neg, TOTAL OF 3 CARDIAC STENTS, breast bx; right breast lumpectomy w/AND 01/30/20; Past Anesthesia/Blood Transfusion Reactions: No Reported Reaction Additional Past Anesthesia/Blood Transfusion Reaction / Comment(s): clausterphobia Date of Last Stent Placement:: UNK Past Psychological History: Anxiety, Bipolar Additional Psychological History / Comment(s): mood disorder Smoking Status: Current every day smoker Past Alcohol Use History: None Reported Additional Past Alcohol Use History / Comment(s): Started smoking in her teens; 2ppd, currently smokes around half a pack/day Past Drug Use History: None Reported Additional Drug Use History / Comment(s): Pt. states recreational marijuana use "once every couple months" - Past Family History Son(s) Family Medical History: Cancer Father Family Medical History: Diabetes Mellitus, Myocardial Infarction ([place]) Mother Family Medical History: Cancer, Myocardial Infarction ([place]) Sister(s) Family Medical History: Myocardial Infarction ([place]) Medications and Allergies Home Medications Medication Instructions Recorded Confirmed Type PARoxetine HCL [Paxil] 40 mg PO DAILY 06/24/16 08/18/21 History Isosorbide Mononitrate ER [Imdur] 30 mg PO DAILY 09/02/17 08/18/21 History OXcarbazepine [Trileptal] 300 mg PO BID 02/19/20 08/18/21 History Aspirin EC [Ecotrin Low Dose] 81 mg PO DAILY 09/12/20 08/18/21 History traZODone HCL [Desyrel] 100 mg PO HS 02/05/21 08/18/21 History carvediloL [Coreg] 6.25 mg PO AC-BID #60 tab 02/07/21 08/18/21 Rx levETIRAcetam [Keppra] 500 mg PO BID #60 tab 04/12/21 08/18/21 Rx Ergocalciferol (Vitamin D2) 1,250 mcg PO TUFR 07/21/21 08/18/21 History [Drisdol (50,000 Iu)] Rosuvastatin Calcium [Crestor] 10 mg PO DAILY 07/21/21 08/18/21 History HYDROcodone/APAP 7.5-325MG [[place] 1 tab PO BID PRN #6 tab 07/24/21 08/18/21 Rx 7.5-325] Ondansetron [Zofran] 4 mg PO Q6HR PRN #10 tab 07/24/21 08/18/21 Rx Pantoprazole [Protonix] 40 mg PO AC-BRKFST tab 07/24/21 08/18/21 Rx Folic Acid 1 mg PO DAILY 08/18/21 08/18/21 History clonazePAM [KlonoPIN] 1 - 2 mg PO DAILY PRN 08/18/21 08/18/21 History Allergies Allergy/AdvReac Type Severity Reaction Status Date / Time codeine AdvReac Nausea & Verified 08/18/21 21:49 Vomiting Latex, Natural Rubber AdvReac Rash/Hives/ Verified 08/18/21 21:49 itching Physical Exam Osteopathic Statement: *. No significant issues noted on an osteopathic structural exam other than those noted in the History and Physical/Consult. Vitals: Vital Signs Temp Pulse Pulse Resp BP BP Pulse Ox 02/07/22 10:00 18 95 02/07/22 09:23 98.7 F 84 18 139/74 95 02/07/22 08:00 70 22 149/62 100 02/07/22 06:45 26 H 02/07/22 06:29 97.9 F 69 24 142/92 100 Intake and Output 02/06/22 02/07/22 02/07/22 22:59 06:59 14:59 Other: Weight 54.431 kg 54.431 kg Results CBC & Chem 7: 02/07/22 06:44 02/07/22 06:44 Labs: Abnormal Lab Results - Last 24 Hours (Table) 02/07/22 Range/Units 06:44 Sodium 131 L (137-145) mmol/L Carbon Dioxide 19 L (22-30) mmol/L Glucose 133 H (74-99) mg/dL Thrombosis Risk Factor Assmnt - Choose All That Apply Each Factor Represents 1 point: Acute [place] Each Risk Factor Represents 2 Points: Age 61-74 years Other congenital or acquired thrombophilia - If yes, enter type in comment: No Thrombosis Risk Factor Assessment Total Risk Factor Score: 3 Thrombosis Risk Factor Assessment Level: Moderate Risk
[2022-02-07] MEDS: KETOROLAC 15 MG/ML 1 ML VIAL IVP PRN (13:58)
[2022-02-07] MEDS: SODIUM CHLORIDE 0.9% 1,000 ML IV SCH (13:59)
[2022-02-07] MEDS ORDERED: ACETAMINOPHEN TAB 325 MG TAB PO PRN (16:25)
[2022-02-07] MEDS ORDERED: GABAPENTIN 300 MG CAP PO PRN (16:26)
[2022-02-07] MEDS: carvediloL 6.25 MG TAB PO SCH (17:48)
[2022-02-07] MEDS: HYDROcodone/APAP 7.5-325MG 1 EACH TAB PO PRN (17:48)
[2022-02-07] MEDS: clonazePAM 1 MG TAB PO PRN (18:01)
--- NOTE | 2022-02-07 19:21 | CONS ---
CONSULTATION CHIEF COMPLAINT: Chest pain. Vanesa is a 71-year-old lady with history of coronary artery disease, status post angioplasty, hypertension, chronic pain and dyslipidemia who regularly sees me in the office. She presented to hospital complaining of chest pain. Her chest discomfort is precordial, mild intensity, without diaphoresis, dizziness or syncope. Since being admitted she is doing well and her cardiac enzymes have been negative. She has been tested for COVID and influenza. They have all come back negative. An EKG shows sinus rhythm without significant ST-T wave changes. Patient had a cardiac catheterization last year that revealed a patent stent within the circumflex coronary artery. I believe patient's chest pain does not require further evaluation at this time. I will optimize her medical therapy. She is currently on aspirin, Lipitor, Coreg, Imdur 30 mg daily. I will increase the dose to 60. She is a smoker and had been advised to quit smoking. PAST MEDICAL HISTORY: Significant for coronary artery disease, status post angioplasty, hypertension, dyslipidemia, chronic pain. MEDICATIONS: Medications include Coreg, Crestor, Imdur, aspirin. ALLERGIES: CODEINE AND LATEX. FAMILY HISTORY: Negative for premature coronary artery disease. SOCIAL HISTORY: Significant for smoking. There is no history of EtOH abuse or drug abuse. REVIEW OF SYSTEMS: HEENT is unremarkable. CARDIAC: As described above. RESPIRATORY: As described above. GI: Negative. GENITOURINARY: Negative. ALLERGY/IMMUNOLOGY: Negative. SKIN: Negative. MUSCULOSKELETAL: Significant for arthritis. PSYCHOSOCIAL: Negative. DERMATOLOGY: Negative. CONSTITUTIONAL: Negative. ONCOLOGICAL: Negative. GLASS LINED TANK REPAIRER: Negative. Rest of the system review is not relevant. PHYSICAL EXAMINATION: Comfortable at rest. Vital signs are stable. There is no jugular venous distention. Carotid upstroke is normal. There is no bruit. Chest exam reveals good air entry bilaterally. Heart exam reveals first and second heart sounds. No gallop. Has a systolic murmur at the apex. Abdomen is soft. Examination of extremities did not reveal any edema. Peripheral pulses are felt. ASSESSMENT: 1. Precordial chest pain. 2. Coronary artery disease, status post angioplasty. PLAN: Myocardial infarction is ruled out. Patient can be discharged home and outpatient followup arranged through my office. I will increase the dose of Imdur. If we are able to, will get an echo done on her. MMODL / IJN: [id number] /
[2022-02-07] MEDS: traZODone HCL 50 MG TAB PO SCH (20:37)
[2022-02-08] MEDS: HYDROcodone/APAP 7.5-325MG 1 EACH TAB PO PRN ×3 (04:38→17:23)
[2022-02-08] MEDS: SODIUM CHLORIDE 0.9% 1,000 ML IV SCH (06:01)
[2022-02-08] MEDS: ONDANSETRON 4 MG/2 ML VIAL IVP PRN ×2 (06:02→14:18)
[2022-02-08 06:09] LABS: African American GFR (CKD) 85 (>60 ml/min/1.73 sqM); Anion Gap 3 mmol/L; Blood Urea Nitrogen 13 mg/dL (7-17); Calcium 8.4 mg/dL (8.4-10.2); Carbon Dioxide 21 mmol/L (22-30); Chloride 109 mmol/L (98-107); Glucose 98 mg/dL (74-99); Non-African American GFR(CKD) 74 (>60 ml/min/1.73 sqM); Sodium 133 mmol/L (137-145)
[2022-02-08] MEDS: clonazePAM 1 MG TAB PO PRN (06:26)
[2022-02-08] MEDS: ISOSORBIDE MONONITRATE ER 60 MG TAB.ER.24H PO SCH (08:09)
[2022-02-08] MEDS: PANTOPRAZOLE 40 MG TABLET PO SCH (08:10)
[2022-02-08] MEDS: ASPIRIN 81 MG PO SCH (08:10)
[2022-02-08] MEDS: NICOTINE 14MG/24HR PATCH TRANSDERM SCH (08:10)
[2022-02-08] MEDS: OXcarbazepine 300 MG TAB PO SCH ×2 (08:10→20:01)
[2022-02-08] MEDS: levETIRAcetam 500 MG TAB PO SCH ×2 (08:10→20:01)
[2022-02-08] MEDS: carvediloL 6.25 MG TAB PO SCH ×2 (08:10→17:38)
[2022-02-08] MEDS: PARoxetine 20 MG TAB PO SCH (08:10)
[2022-02-08] MEDS: ATORVASTATIN 20 MG TAB PO SCH (08:11)
[2022-02-08] MEDS ORDERED: ASPIRIN 325 MG TAB PO SCH (09:00)
[2022-02-08 09:43] LABS: Chol/HDL Ratio 3.01 Ratio; LDL Cholesterol,Calculated 63.1 mg/dL (0.0-131.0)
--- NOTE | 2022-02-08 10:24 | P.PN ---
Subjective Progress Note Date: 02/08/22 Patient is a 71-year-old female with a past history of coronary artery disease status post stenting, diabetes, and presented to the ER via EMS with multiple complaints. Patient underwent an extensive evaluation. Initial vital signs were within normal limits. Initial laboratory analysis sodium 133 but was otherwise unremarkable. Initial troponin was negative. EKG demonstrated normal sinus rhythm normal axis, and normal intervals and no significant ST-T wave changes. Chest x-ray demonstrated no acute process. She was placed in observation. She was seen by cardiology and acute coronary syndrome was ruled out. Echo was taken. Apparently she is having difficulty with her utilites and affording lodging. Currenly awaiting social work to see the patient per case management, Patient seen and examined at bedside. She complaints of her chronic back pain, she has no other complaints at this time. She is aware that she has been cleared by cardiology. General: nontoxic, no distress, appears at stated age Derm: warm, dry Head: atraumatic, normocephalic, symmetric Eyes: EOMI, no lid lag, anicteric sclera Mouth: no lip lesion, mucus membranes moist Cardiovascular: S1S2 reg, no murmur, positive posterior tibial pulse bilateral, Lungs: CTA bilateral, no rhonchi, no rales , no accessory muscle use Abdominal: soft, nontender to palpation, no guarding, no appreciable organomegaly Ext: no gross muscle atrophy, no edema, no contracture Neuro: CN II-XI grossly intact, no focal neuro deficits Psych: alert, oriented, appropraite affect Assessment/Plan: Chest pain, back pain - ruled out - tele, ASA, Statin, imdur, BB - Cardio recs appreciated - continue PPI Upper respiratory tract infection - flu and COVID negative - cepacol - mucinex Hyponatremia, due to dehyrdation, resovled DM 2 - does not appear to be on meds at home - follow BS, SSI HLD - statin Tobacco abuse - cessation - nicotine replacement Bipolar - continue current medications Anticipate home in AM once seen by social work. Objective - Vital Signs Vital signs: Vital Signs Temp 97.9 F 02/08/22 06:54 Pulse 58 L 02/08/22 06:54 Resp 25 H 02/08/22 06:54 BP 189/75 02/08/22 06:54 Pulse Ox 99 02/08/22 10:00 FiO2 Intake & Output 02/07/22 02/08/22 02/08/22 18:59 06:59 18:59 Weight 54.431 kg Other: Voiding Method Toilet # Voids 1 1 - Labs CBC & Chem 7: 02/07/22 06:44 02/08/22 04:21 Labs: Abnormal Lab Results - Last 24 Hours (Table) 02/08/22 Range/Units 04:21 Sodium 133 L (137-145) mmol/L Chloride 109 H (98-107) mmol/L Carbon Dioxide 21 L (22-30) mmol/L
--- NOTE | 2022-02-08 11:29 | CA ---
Transthoracic Echo Report Name: Vanesa Cole Age: 71 Gender: F : 1950 Exam Date: 02/07/2022 15:53 Exam Location: [facility] Ht (in): 75 Wt (lb): 120 Ordering Physician: Jonatan Muro MD ([id number]) Attending/Referring Phys: Jina FAUSTIN [employer]former Backtender Mckenna Philippe RDCS Procedure CPT: Indications: Chest Pain Cardiac Hx: Technical Quality: Fair Contrast 1: Total Dose (mL): Contrast 2: Total Dose (mL): MEASUREMENTS (Male / Female) Normal Values 2D ECHO LV Diastolic Diameter PLAX 3.5 cm 4.2 - 5.9 / 3.9 - 5.3 cm LV Systolic Diameter PLAX 2.9 cm IVS Diastolic Thickness 1.3 cm 0.6 - 1.0 / 0.6 - 0.9 cm LVPW Diastolic Thickness 1.2 cm 0.6 - 1.0 / 0.6 - 0.9 cm LV Relative Wall Thickness 0.7 LA Volume 38.7 cm??? 18 - 58 / 22 - 52 cm??? M-MODE Aortic Root Diameter MM 2.9 cm LA Systolic Diameter MM 3.8 cm LA Ao Ratio MM 1.3 AV Cusp Separation MM 2.4 cm DOPPLER AV Peak Velocity 120.8 cm/s AV Peak Gradient 5.8 mmHg LVOT Peak Velocity 97.9 cm/s LVOT Peak Gradient 3.8 mmHg MV Area PHT 2.6 cm??? Mitral E Point Velocity 69.9 cm/s Mitral A Point Velocity 101.5 cm/s Mitral E to A Ratio 0.7 MV Deceleration Time 291.5 ms MV E' Velocity 4.3 cm/s Mitral E to MV E' Ratio 16.3 TR Peak Velocity 137.7 cm/s TR Peak Gradient 7.6 mmHg Right Ventricular Systolic Press 12.6 mmHg FINDINGS Left Ventricle Mildly increased left ventricular wall thickness. Normal left ventricular systolic function with no obvious regional wall motion abnormalities. Left ventricular ejection fraction is estimated at 55-60 %. Right Ventricle Normal right ventricular size. Right ventricular systolic pressure within normal limits. Right Atrium Normal right atrial size. Left Atrium Normal left atrial size. No evidence for an atrial septal defect. Mitral Valve Structurally normal mitral valve. No mitral stenosis, regurgitation or prolapse. Aortic Valve No aortic valve stenosis or regurgitation. Tricuspid Valve Structurally normal tricuspid valve. Mild tricuspid regurgitation. Pulmonic Valve Trace pulmonic regurgitation. Pericardium No pericardial effusion. Aorta Normal size aortic root and proximal ascending aorta. CONCLUSIONS Normal LV systolic function Previewed by: Dr. Jonatan Muro MD (Electronically Signed) Final Date: 08 February 2022 11:28
--- NOTE | 2022-02-08 12:40 | PN ---
PROGRESS NOTE Vanesa is a 71-year-old lady with known history of coronary artery disease status post prior angioplasty that presented to hospital with chest pain. She ruled out for myocardial infarction. Currently has musculoskeletal pain involving her back and complains of cough. She is otherwise doing well. On exam, comfortable at rest. Blood pressure is elevated at 189/75, but most of her blood pressures have been normal. She is currently on aspirin, Lipitor, Coreg, Imdur. ASSESSMENT AND PLAN: Precordial chest pain, atypical, resolved, known coronary artery disease, status post prior angioplasty, elevated blood pressure of unclear significance. We will monitor and musculoskeletal pain management per primary. MMODL / IJN: [id number] /
[2022-02-08] MEDS ORDERED: clonazePAM 1 MG TAB PO STA (19:43)
[2022-02-08] MEDS: traZODone HCL 50 MG TAB PO SCH (20:01)
[2022-02-09] MEDS: HYDROcodone/APAP 7.5-325MG 1 EACH TAB PO PRN ×3 (01:04→13:07)
[2022-02-09 01:07] VITALS: RESP 18
[2022-02-09] MEDS: ONDANSETRON 4 MG/2 ML VIAL IVP PRN (06:32)
[2022-02-09] MEDS: ASPIRIN 81 MG PO SCH (07:23)
[2022-02-09] MEDS: NICOTINE 14MG/24HR PATCH TRANSDERM SCH (07:23)
[2022-02-09] MEDS: PANTOPRAZOLE 40 MG TABLET PO SCH (07:23)
[2022-02-09] MEDS: ATORVASTATIN 20 MG TAB PO SCH (07:23)
[2022-02-09] MEDS: ISOSORBIDE MONONITRATE ER 60 MG TAB.ER.24H PO SCH (07:24)
[2022-02-09] MEDS: PARoxetine 20 MG TAB PO SCH (07:24)
[2022-02-09] MEDS: OXcarbazepine 300 MG TAB PO SCH (07:25)
[2022-02-09] MEDS: levETIRAcetam 500 MG TAB PO SCH (07:32)
[2022-02-09] MEDS: clonazePAM 1 MG TAB PO PRN ×2 (07:32→15:05)
[2022-02-09] MEDS: carvediloL 6.25 MG TAB PO SCH (07:32)
--- NOTE | 2022-02-09 10:13 | P.PN ---
Subjective Progress Note Date: 02/09/22 HISTORY OF PRESENT ILLNESS: This is 71-year-old female with a history of coronary artery disease. Patient presented to the hospital with chest pain. An acute coronary event has been ruled out. Patient examined this morning at the bedside. Patient denies any further episodes of chest pain or pressure. She denies shortness of breath. Blood pressure stable this morning at 112/47. PHYSICAL EXAM: VITAL SIGNS: Reviewed. GENERAL: Well-developed in no acute distress. NECK: Supple. No JVD or thyromegaly LUNGS: Respirations even and unlabored. Lungs essentially clear to auscultation bilaterally. HEART: Regular rate and rhythm. S1 and S2 heard. EXTREMITIES: Normal range of motion. No clubbing or cyanosis. Peripheral pulses intact. No lower extremity edema ASSESSMENT: Chest pain, atypical Coronary artery disease with previous stent placement to the circumflex Hyperlipidemia PLAN: Continue current cardiac medications Patient is stable for discharge today from a cardiac standpoint We will sign off. Please reconsult if needed. Patient to follow up outpatient with Dr. Muro Nurse practitioner note has been reviewed by physician. Signing provider agrees with the documented findings, assessment, and plan of care. Objective - Vital Signs Vital signs: Vital Signs Temp 98.1 F 02/09/22 07:00 Pulse 60 02/09/22 07:00 Resp 18 02/09/22 07:38 BP 112/47 02/09/22 07:00 Pulse Ox 98 02/09/22 07:00 FiO2 Intake & Output 02/08/22 02/09/22 02/09/22 18:59 06:59 18:59 Intake Total 200 240 Balance 200 240 Intake: Oral 200 240 Other: Voiding Method Toilet Toilet # Voids 2 1 1 - Labs CBC & Chem 7: 02/07/22 06:44 02/08/22 04:21
--- NOTE | 2022-02-09 10:50 | P.DS ---
Providers Date of admission: 02/07/22 08:47 Expected date of discharge: 02/09/22 Attending physician: Krystal Post DO Primary care physician: Lucien Bishop Hospital Course: Discharge Diagnosis: Musculoskeletal strain with Chest pain, back pain Upper respiratory tract infection Hyponatremia, due to dehydration, resolved DM 2 HLD Tobacco abuse Bipolar Hospital Course: Patient is a 71-year-old female with a past history of coronary artery disease status post stenting, diabetes, and presented to the ER via EMS with multiple complaints. Patient underwent an extensive evaluation. Initial vital signs were within normal limits. Initial laboratory analysis sodium 133 but was otherwise unremarkable. Initial troponin was negative. EKG demonstrated normal sinus rhythm normal axis, and normal intervals and no significant ST-T wave changes. Chest x-ray demonstrated no acute process. She was placed in observation. She was seen by cardiology and acute coronary syndrome was ruled out. Echo was taken. Ejection fraction was 50-55%. She continues to do well and was asymptomatic with regards to her chest pain. She felt her back pain was back to her baseline. She was noted to have some issues with housecleaning and Social Security. She met management was given resources. She was determined stable for discharge home. Follow-up: Dr. Muro in 1-2 weeks, Dr. Bishop in 1-2 days, added protonix Patient seen and examined at bedside. Feeling at her baseline, no new complaints, wants to go home. Vital signs reviewed and stable. General: nontoxic, no distress, appears at stated age Derm: warm, dry Head: atraumatic, normocephalic, symmetric Eyes: EOMI, no lid lag, anicteric sclera Mouth: no lip lesion, mucus membranes moist Cardiovascular: S1S2 reg, no murmur, positive posterior tibial pulse bilateral, Lungs: CTA bilateral, no rhonchi, no rales , no accessory muscle use Abdominal: soft, nontender to palpation, no guarding, no appreciable organomegaly Ext: no gross muscle atrophy, no edema, no contractures Neuro: CN II-XI grossly intact, no focal neuro deficits Psych: Alert, oriented, appropriate affect A total of 27 minutes of time were spent preparing this complex discharge summary. Patient was discharged on 02/09/22. Patient Condition at Discharge: Fair Plan - Discharge Summary Discharge Rx Participant: No New Discharge Prescriptions: New Pantoprazole [Protonix] 40 mg PO AC-BRKFST #30 tab Continue PARoxetine HCL [Paxil] 40 mg PO DAILY Isosorbide Mononitrate ER [Imdur] 30 mg PO DAILY OXcarbazepine [Trileptal] 300 mg PO BID Aspirin EC [Ecotrin Low Dose] 81 mg PO DAILY traZODone HCL [Desyrel] 50 mg PO HS Ergocalciferol (Vitamin D2) [Drisdol (50,000 Iu)] 1,250 mcg PO Q7D HYDROcodone/APAP 7.5-325MG [[place] 7.5-325] 1 tab PO BID PRN #6 tab PRN Reason: Pain Folic Acid 1 mg PO DAILY Ondansetron [Zofran] 4 mg PO Q6H PRN PRN Reason: Nausea And Vomiting Naloxone HCl [Narcan] 4 mg NASAL ONCE PRN PRN Reason: overdose Gabapentin 600 mg PO HS PRN PRN Reason: Pain carvediloL [Coreg] 6.25 mg PO AC-BID #60 tab levETIRAcetam [Keppra] 500 mg PO BID #60 tab Rosuvastatin Calcium [Crestor] 10 mg PO DAILY clonazePAM [KlonoPIN] 1 - 2 mg PO DAILY PRN PRN Reason: Anxiety Discharge Medication List PARoxetine HCL [Paxil] 40 mg PO DAILY 06/24/16 [History] Isosorbide Mononitrate ER [Imdur] 30 mg PO DAILY 09/02/17 [History] OXcarbazepine [Trileptal] 300 mg PO BID 02/19/20 [History] Aspirin EC [Ecotrin Low Dose] 81 mg PO DAILY 09/12/20 [History] traZODone HCL [Desyrel] 50 mg PO HS 02/05/21 [History] carvediloL [Coreg] 6.25 mg PO AC-BID #60 tab 02/07/21 [Rx] levETIRAcetam [Keppra] 500 mg PO BID #60 tab 04/12/21 [Rx] Ergocalciferol (Vitamin D2) [Drisdol (50,000 Iu)] 1,250 mcg PO Q7D 07/21/21 [History] Rosuvastatin Calcium [Crestor] 10 mg PO DAILY 07/21/21 [History] HYDROcodone/APAP 7.5-325MG [[place] 7.5-325] 1 tab PO BID PRN #6 tab 07/24/21 [Rx] Folic Acid 1 mg PO DAILY 08/18/21 [History] clonazePAM [KlonoPIN] 1 - 2 mg PO DAILY PRN 08/18/21 [History] Gabapentin 600 mg PO HS PRN 02/07/22 [History] Naloxone HCl [Narcan] 4 mg NASAL ONCE PRN 02/07/22 [History] Ondansetron [Zofran] 4 mg PO Q6H PRN 02/07/22 [History] Pantoprazole [Protonix] 40 mg PO AC-BRKFST #30 tab 02/09/22 [Rx] Follow up Appointment(s)/Referral(s): [facility] [facility] [NON-STAFF] - As Needed (Contact for Meals on Wheels and tranportation assistance.) Nancy Chavez MD [STAFF PHYSICIAN] - 1-2 days Activity/Diet/Wound Care/Special Instructions: Activity: [] Diet: [] Wound Care: [] Special Instructions: Social Security: National call our National 800 Number ( ) or your local Social Security office for help. For quicker access to a outbound telemarketing representative at our National 800 Number, try calling early in the day (between 8 a.m. and 10 a.m. local time) or later in the afternoon (between 4 p.m. and 7 p.m. local time). We are also less busy later in the week (Wednesday to Wednesday) and later in the month. https://www.ssa.gov/coronavirus/gethelp/ Local: [place] [employer] [facility] [address] [place] [address], [address] Discharge/Stand Alone Forms: Who Do I Call?, Community Resources, Personal Senior Tableau Developer Discharge Disposition: HOME SELF-CARE
[2022-02-09] MEDS: KETOROLAC 15 MG/ML 1 ML VIAL IVP PRN (12:36)
[2022-02-09 13:49] VITALS: BP 118/69; PULSE 67; TEMP 97.6
== END 2022-02-09 16:20 | disposition home or self-care (01) ==
LOC: EC 06:27 → 6NMEDSUR 08:47
PROVIDERS: ADMIT Internal Medicine; ATTEND Internal Medicine
DX: R07.89 Other chest pain (principal); J06.9 Acute upper respiratory infection, unspecified; E87.1 Hypo-osmolality and hyponatremia; E86.0 Dehydration; G89.29 Other chronic pain; M54.6 Pain in thoracic spine; I10 Essential (primary) hypertension; I25.10 Atherosclerotic heart disease of native coronary artery without angina pectoris; E11.9 Type 2 diabetes mellitus without complications; E78.5 Hyperlipidemia, unspecified; I25.2 Old myocardial infarction; K21.9 Gastro-esophageal reflux disease without esophagitis; G43.909 Migraine, unspecified, not intractable, without status migrainosus; M10.9 Gout, unspecified; R11.0 Nausea; R00.2 Palpitations; R20.0 Anesthesia of skin; R20.2 Paresthesia of skin; R19.7 Diarrhea, unspecified; M19.90 Unspecified osteoarthritis, unspecified site; F40.240 Claustrophobia; F31.9 Bipolar disorder, unspecified; F41.9 Anxiety disorder, unspecified; F39 Unspecified mood [affective] disorder; F17.210 Nicotine dependence, cigarettes, uncomplicated; Z20.822 Contact with and (suspected) exposure to COVID-19; Z79.82 Long term (current) use of aspirin; Z79.899 Other long term (current) drug therapy; Z91.040 Latex allergy status; Z88.5 Allergy status to narcotic agent; Z85.3 Personal history of malignant neoplasm of breast; Z92.3 Personal history of irradiation; Z92.21 Personal history of antineoplastic chemotherapy; Z95.5 Presence of coronary angioplasty implant and graft; Z98.890 Other specified postprocedural states; Z83.3 Family history of diabetes mellitus; Z82.49 Family history of ischemic heart disease and other diseases of the circulatory system; Z80.9 Family history of malignant neoplasm, unspecified; Z71.6 Tobacco abuse counseling
CPT/HCPCS: 96376 ×2; 96361; 96375 ×2; 96374; 99285; 36415; 94760; 93005; 93306; 85379; 83880; 80061; 80053; 80048; 84443; 83735; 84484; 85025; 85610; 85730; 87636; 71046; G0378 ×3; S4990 ×2; J2060; J2270; J2405 ×3; J1885 ×2

== ENCOUNTER 2022-05-14 15:57 | Observation (INO) | payer MEDICARE, OTHER ==
[2022-05-14] MEDS ORDERED: SODIUM CHLORIDE 0.9% 1,000 ML IV STA (16:12)
--- NOTE | 2022-05-14 16:18 | ED ---
General Adult HPI - General Chief complaint: Abdominal Pain Stated complaint: pain all over Time Seen by Provider: 05/14/22 16:01 Source: patient Mode of arrival: ambulatory Limitations: no limitations - History of Present Illness Initial comments: Patient is a 71-year-old female with a past medical history of coronary artery disease status post stenting in 2016, type 2 diabetes, and hyperlipidemia who presents to the emergency department with a chief complaint of "pain all over." Patient states pain started 2 days ago. Reports aching pain across her abdomen which shoots into the left side of her chest and in both of her limbs. Denies limb swelling and redness. She is unable to tell me any alleviating or worsening factors. Unsure if pain is exertional. She reports nausea and a lot of anxiety. Reports chronic back pain "all over" with no reinjury. She denies fever, chills, lightheadedness, dizziness, shortness of breath, vomiting, burning with urination, blood in the urine, diarrhea, constipation, blood in stool. Reports smoking one to 3 packs a day. Denies alcohol or illicit drug use. Patient had cardiac catheterization January 2021 due to unstable angina which showed patent stent and no need for revascularization at that time. Patient was told her symptoms were noncardiac in origin, cleared by cardiology. Her most recent echo shows improved left ventricular function at 50-55% according to cardiology. - Related Data Home Medications Medication Instructions Recorded Confirmed PARoxetine HCL [Paxil] 40 mg PO DAILY 06/24/16 02/07/22 Isosorbide Mononitrate ER [Imdur] 30 mg PO DAILY 09/02/17 02/07/22 OXcarbazepine [Trileptal] 300 mg PO BID 02/19/20 02/07/22 Aspirin EC [Ecotrin Low Dose] 81 mg PO DAILY 09/12/20 02/07/22 traZODone HCL [Desyrel] 50 mg PO HS 02/05/21 02/07/22 Ergocalciferol (Vitamin D2) 1,250 mcg PO Q7D 07/21/21 02/07/22 [Drisdol (50,000 Iu)] Rosuvastatin Calcium [Crestor] 10 mg PO DAILY 07/21/21 02/07/22 Folic Acid 1 mg PO DAILY 08/18/21 02/07/22 clonazePAM [KlonoPIN] 1 - 2 mg PO DAILY PRN 08/18/21 02/07/22 Gabapentin 600 mg PO HS PRN 02/07/22 02/07/22 Naloxone HCl [Narcan] 4 mg NASAL ONCE PRN 02/07/22 02/07/22 Ondansetron [Zofran] 4 mg PO Q6H PRN 02/07/22 02/07/22 Previous Rx's Medication Instructions Recorded carvediloL [Coreg] 6.25 mg PO AC-BID #60 tab 02/07/21 levETIRAcetam [Keppra] 500 mg PO BID #60 tab 04/12/21 HYDROcodone/APAP 7.5-325MG [[place] 1 tab PO BID PRN #6 tab 07/24/21 7.5-325] Pantoprazole [Protonix] 40 mg PO AC-BRKFST #30 tab 02/09/22 Allergies Allergy/AdvReac Type Severity Reaction Status Date / Time codeine AdvReac Nausea & Verified 05/14/22 16:08 Vomiting Latex, Natural Rubber AdvReac Rash/Hives/ Verified 05/14/22 16:08 itching Review of Systems ROS Statement: Those systems with pertinent positive or pertinent negative responses have been documented in the HPI. ROS Other: All systems not noted in ROS Statement are negative. Past Medical History Past Medical History: Coronary Artery Disease (CAD), Diabetes Mellitus, GERD/Reflux, Hyperlipidemia, Myocardial Infarction ([place]) Additional Past Medical History / Comment(s): Dx rt breast CA December 2019- radiation and chemo, fx ankle November 2019, MIGRAINES, chronic back pain, gout Last Myocardial Infarction Date:: unk History of Any Multi-Drug Resistant Organisms: None Reported Past Surgical History: Breast Surgery, Heart Catheterization With Stent, Orthopedic Surgery Additional Past Surgical History / Comment(s): ORIF rt ankle -2019, EGD/COLONOSCOPY, bone marrow bx-neg, TOTAL OF 3 CARDIAC STENTS, breast bx; right breast lumpectomy w/AND 01/30/20; Past Anesthesia/Blood Transfusion Reactions: No Reported Reaction Additional Past Anesthesia/Blood Transfusion Reaction / Comment(s): clausterphobia Date of Last Stent Placement:: UNK Past Psychological History: Anxiety, Bipolar Smoking Status: Current every day smoker Past Alcohol Use History: None Reported Past Drug Use History: None Reported - Past Family History Son(s) Family Medical History: Cancer Sister(s) Family Medical History: Myocardial Infarction ([place]) Father Family Medical History: Diabetes Mellitus, Myocardial Infarction ([place]) Mother Family Medical History: Cancer, Myocardial Infarction ([place]) General Exam Limitations: no limitations General appearance: alert, anxious Head exam: Present: atraumatic, normocephalic, normal inspection Eye exam: Present: normal appearance, PERRL, EOMI. Absent: scleral icterus, conjunctival injection, periorbital swelling Neck exam: Present: normal inspection, full ROM Respiratory exam: Present: normal lung sounds bilaterally. Absent: respiratory distress, wheezes, rales, rhonchi, stridor Cardiovascular Exam: Present: regular rate, normal rhythm, normal heart sounds. Absent: systolic murmur, diastolic murmur, rubs, gallop, clicks GI/Abdominal exam: Present: soft, normal bowel sounds. Absent: distended, tenderness, guarding, rebound, rigid Extremities exam: Present: normal inspection, normal capillary refill. Absent: pedal edema, joint swelling, calf tenderness Neurological exam: Present: alert, oriented X3, CN II-XII intact Psychiatric exam: Present: normal affect, anxious. Absent: normal mood Skin exam: Present: warm, dry, intact, normal color. Absent: rash Course Vital Signs 05/14/22 16:06 Temperature 98 F Pulse Rate 90 Respiratory 18 Rate Blood Pressure 157/80 O2 Sat by Pulse 100 Oximetry Medical Decision Making - Medical Decision Making This 71-year-old female presenting with multiple complaints. Vitals stable. Patient appears very anxious during my evaluation. EKG shows sinus rhythm without evidence of acute ischemia. Laboratory studies obtained. There is no leukocytosis. There is hyponatremia at 126 which was treated with normal saline bolus. Troponin is within normal limits. COVID-19 and influenza are not detected. Chest x-ray is negative for acute process. KUB shows an overall nonobstructive bowel gas pattern. Patient given morphine and Ativan. On reevaluation patient is much more calm and collected. States her chest pain is resolved however her limb pain is coming back. With patient's cardiac history will admit for trending of troponin and further management of symptoms. Case discussed with Dr. Garduno who accepts admission for observation. Dr. Glynn is my attending. - Lab Data Result diagrams: 10/27/22 16:26 05/14/22 16:26 Lab Results 05/14/22 05/14/22 05/14/22 Range/Units 16:13 16:26 16:26 WBC 5.5 (3.8-10.6) k/uL RBC 3.80 (3.80-5.40) m/uL Hgb 13.1 (11.4-16.0) gm/dL Hct 35.0 (34.0-46.0) % MCV 92.1 (80.0-100.0) fL MCH 34.6 (25.0-35.0) pg MCHC 37.5 H (31.0-37.0) g/dL RDW 11.5 (11.5-15.5) % Plt Count 187 (150-450) k/uL MPV 7.3 Neutrophils % 64 % Lymphocytes % 25 % Monocytes % 5 % Eosinophils % 2 % Basophils % 1 % Neutrophils # 3.5 (1.3-7.7) k/uL Lymphocytes # 1.4 (1.0-4.8) k/uL Monocytes # 0.3 (0-1.0) k/uL Eosinophils # 0.1 (0-0.7) k/uL Basophils # 0.1 (0-0.2) k/uL PT 10.4 (9.0-12.0) sec INR 0.9 (<1.2) APTT 24.3 (22.0-30.0) sec Sodium (137-145) mmol/L Potassium (3.5-5.1) mmol/L Chloride (98-107) mmol/L Carbon Dioxide (22-30) mmol/L Anion Gap mmol/L BUN (7-17) mg/dL Creatinine (0.52-1.04) mg/dL Est GFR (CKD-EPI)AfAm (>60 ml/min/1.73 sqM) Est GFR (CKD-EPI)NonAf (>60 ml/min/1.73 sqM) Glucose (74-99) mg/dL Calcium (8.4-10.2) mg/dL Total Bilirubin (0.2-1.3) mg/dL AST (14-36) U/L ALT (4-34) U/L Alkaline Phosphatase (38-126) U/L Troponin I (0.000-0.034) ng/mL NT-Pro-B Natriuret Pep 564 pg/mL Total Protein (6.3-8.2) g/dL Albumin (3.5-5.0) g/dL Lipase (23-300) U/L Coronavirus (PCR) (Not Detectd) Influenza Type A RNA (Not Detectd) Influenza Type B (PCR) (Not Detectd) 05/14/22 05/14/22 05/14/22 Range/Units 16:26 16:26 17:14 WBC (3.8-10.6) k/uL RBC (3.80-5.40) m/uL Hgb (11.4-16.0) gm/dL Hct (34.0-46.0) % MCV (80.0-100.0) fL MCH (25.0-35.0) pg MCHC (31.0-37.0) g/dL RDW (11.5-15.5) % Plt Count (150-450) k/uL MPV Neutrophils % % Lymphocytes % % Monocytes % % Eosinophils % % Basophils % % Neutrophils # (1.3-7.7) k/uL Lymphocytes # (1.0-4.8) k/uL Monocytes # (0-1.0) k/uL Eosinophils # (0-0.7) k/uL Basophils # (0-0.2) k/uL PT (9.0-12.0) sec INR (<1.2) APTT (22.0-30.0) sec Sodium 126 L (137-145) mmol/L Potassium 4.6 (3.5-5.1) mmol/L Chloride 94 L (98-107) mmol/L Carbon Dioxide 20 L (22-30) mmol/L Anion Gap 12 mmol/L BUN 14 (7-17) mg/dL Creatinine 0.91 (0.52-1.04) mg/dL Est GFR (CKD-EPI)AfAm 72 (>60 ml/min/1.73 sqM) Est GFR (CKD-EPI)NonAf 63 (>60 ml/min/1.73 sqM) Glucose 106 H (74-99) mg/dL Calcium 9.4 (8.4-10.2) mg/dL Total Bilirubin 0.4 (0.2-1.3) mg/dL AST 20 (14-36) U/L ALT 18 (4-34) U/L Alkaline Phosphatase 90 (38-126) U/L Troponin I <0.012 (0.000-0.034) ng/mL NT-Pro-B Natriuret Pep pg/mL Total Protein 6.4 (6.3-8.2) g/dL Albumin 4.4 (3.5-5.0) g/dL Lipase 143 (23-300) U/L Coronavirus (PCR) Not Detected (Not Detectd) Influenza Type A RNA (Not Detectd) Influenza Type B (PCR) (Not Detectd) 05/14/22 Range/Units 17:14 WBC (3.8-10.6) k/uL RBC (3.80-5.40) m/uL Hgb (11.4-16.0) gm/dL Hct (34.0-46.0) % MCV (80.0-100.0) fL MCH (25.0-35.0) pg MCHC (31.0-37.0) g/dL RDW (11.5-15.5) % Plt Count (150-450) k/uL MPV Neutrophils % % Lymphocytes % % Monocytes % % Eosinophils % % Basophils % % Neutrophils # (1.3-7.7) k/uL Lymphocytes # (1.0-4.8) k/uL Monocytes # (0-1.0) k/uL Eosinophils # (0-0.7) k/uL Basophils # (0-0.2) k/uL PT (9.0-12.0) sec INR (<1.2) APTT (22.0-30.0) sec Sodium (137-145) mmol/L Potassium (3.5-5.1) mmol/L Chloride (98-107) mmol/L Carbon Dioxide (22-30) mmol/L Anion Gap mmol/L BUN (7-17) mg/dL Creatinine (0.52-1.04) mg/dL Est GFR (CKD-EPI)AfAm (>60 ml/min/1.73 sqM) Est GFR (CKD-EPI)NonAf (>60 ml/min/1.73 sqM) Glucose (74-99) mg/dL Calcium (8.4-10.2) mg/dL Total Bilirubin (0.2-1.3) mg/dL AST (14-36) U/L ALT (4-34) U/L Alkaline Phosphatase (38-126) U/L Troponin I (0.000-0.034) ng/mL NT-Pro-B Natriuret Pep pg/mL Total Protein (6.3-8.2) g/dL Albumin (3.5-5.0) g/dL Lipase (23-300) U/L Coronavirus (PCR) (Not Detectd) Influenza Type A RNA Not Detected (Not Detectd) Influenza Type B (PCR) Not Detected (Not Detectd) Disposition Clinical Impression: Chest pain, Abdominal pain, Musculoskeletal limb pain, Nausea, Chronic back pain, Anxiety Disposition: ADMITTED IP TO THIS [facility] Condition: Good Referrals: Lucien Bishop MD [Primary Care Provider] - 1-2 days Time of Disposition: 18:36
[2022-05-14] MEDS ORDERED: LORazepam 2 MG/ML INJ IV STA (16:27)
[2022-05-14] MEDS ORDERED: HYDROmorphone 0.5 MG/0.5 ML SYRINGE IVP STA (16:27)
[2022-05-14] MEDS ORDERED: ONDANSETRON 4 MG/2 ML VIAL IVP STA (16:28)
[2022-05-14 16:41] LABS: Basophils # (A) 0.1 k/uL (0-0.2); Basophils % (A) 1 %; Eosinophils # (A) 0.1 k/uL (0-0.7); Eosinophils % (A) 2 %; HGB 13.1 gm/dL (11.4-16.0); Lymphocytes # (A) 1.4 k/uL (1.0-4.8); Lymphocytes % (A) 25 %; MCH 34.6 pg (25.0-35.0); MCHC 37.5 g/dL (31.0-37.0); MCV 92.1 fL (80.0-100.0); Mean Platelet Volume 7.3; Monocytes # (A) 0.3 k/uL (0-1.0); Monocytes % (A) 5 %; Neutrophils # (A) 3.5 k/uL (1.3-7.7); Neutrophils % (A) 64 %; Platelet Count 187 k/uL (150-450); RDW 11.5 % (11.5-15.5); WBC 5.5 k/uL (3.8-10.6)
--- NOTE | 2022-05-14 16:48 | XR ---
EXAMINATION TYPE: XR chest 2V DATE OF EXAM: 05/14/2022 COMPARISON: Chest x-ray February 07, 2022 HISTORY: Chest heaviness and pain. TECHNIQUE: Frontal and lateral views of the chest are obtained. FINDINGS: There is mild chronic parenchymal changes bilaterally without suspicious focal air space o pacity, pleural effusion, or pneumothorax seen. The cardiac silhouette size is stable and mildly enl arged. Lower right lateral thoracic surgical clips redemonstrated. The osseous structures remain quita neralized. IMPRESSION: Chronic changes and mild cardiomegaly without acute pulmonary process. No significant ch kirsten from prior.
--- NOTE | 2022-05-14 16:50 | XR ---
EXAMINATION TYPE: XR KUB DATE OF EXAM: 05/14/2022 4:44 PM CLINICAL HISTORY: Abdominal pain. TECHNIQUE: Two supine KUB images of the abdomen are obtained. COMPARISON: Abdominal x-ray October 16, 2010. CT abdomen and pelvis September 12, 2020. FINDINGS: Gas seen in nondistended stomach. Scattered gas is seen in non-distended small bowel loops. Gas and fecal material is seen in non-distended colon. Single left-sided pelvic phlebolith. Slight s coliotic curvature with focal disc space narrowing and endplate sclerosis at right L1-L2 level redemo nstrated. Lung bases are grossly clear.. IMPRESSION: Overall nonobstructive bowel gas pattern redemonstrated.
[2022-05-14 16:56] LABS: Albumin 4.4 g/dL (3.5-5.0); Calcium 9.4 mg/dL (8.4-10.2); Potassium 4.6 mmol/L (3.5-5.1); Total Bilirubin 0.4 mg/dL (0.2-1.3); Total Protein 6.4 g/dL (6.3-8.2)
[2022-05-14 17:01] LABS: INR 0.9 (<1.2); Partial Thromboplastin Time 24.3 sec (22.0-30.0); Prothrombin Time 10.4 sec (9.0-12.0)
[2022-05-14] MEDS ORDERED: NALOXONE 0.4 MG/ML 1 ML VIAL IV PRN (18:33)
[2022-05-14] MEDS ORDERED: ONDANSETRON 4 MG/2 ML VIAL IVP PRN (18:37)
[2022-05-14] MEDS ORDERED: HYDROmorphone 0.5 MG/0.5 ML SYRINGE IVP PRN (18:38)
[2022-05-14] MEDS: SODIUM CHLORIDE 0.9% 1,000 ML IV SCH (22:56)
--- NOTE | 2022-05-14 23:45 | P.HPIM ---
History of Present Illness H&P Date: 05/14/22 The patient is 71-year-old female with a PMH of coronary artery disease status post stenting, type II DM, seizure disorder, hypertension, and hyperlipidemia who presents to the emergency room with complaints of generalized pain. The patient reports that over the past 3-4 months, she has been experiencing diffuse pain all over her body. She reports pain involving her entire abdomen, her pelvis, her both knees, shoulders, and her toes. She reports that she has been taking [place] 7.5 at home with minimal relief. She states that there are no clearexacerbating features to her pain although it is alleviated with IV pain medications that she received in the emergency room. She states that the diffuse body pain is constant and that she has been suffering from this for the past several months. She denied specific chest discomfort and states that it is simply her entire body pains that brought her to the emergency room. Denied shortness of breath, nausea, or vomiting. Chest x-ray in the emergency room revealed chronic changes with mild cardiomegaly with no acute abnormalities. KUB x-ray was unremarkable. EKG revealed normal sinus rhythm at [address]/T-wave changes noted as reviewed by me. Laboratory evaluation was remarkable for sodium 126, chloride 94, glucose 106, and troponin less than 0.012. Review of systems: Pertinent positives and negatives as discussed in HPI, a complete review of systems was performed and all other systems are negative. Physical examination: General: non toxic, no distress, appears at stated age, normal weight Derm: no unusual rashes/lesions, warm Head: atraumatic, normocephalic, symmetric Eyes: EOMI, no lid lag, anicteric sclera, pupils equal round reactive to light ENT: Nose and ears atraumatic Neck: No cervical lymphadenopathy, trachea midline, supple Mouth: no lip lesion, mucus membranes moist Cardiovascular: S1S2 reg, no murmur, positive dorsalis pedis pulse bilateral, no edema Lungs: CTA bilateral, no rhonchi, no rales, no accessory muscle use Abdominal: soft, hyperesthesia diffusely in the abdomen with guarding Ext: muscle strength 4 out of 5 in all 4 extremities grossly, no gross muscle atrophy, no contractures, Neuro: CN II-XI grossly intact, no gross focal neuro deficits Psych: Alert, oriented, appropriate affect Assessment/plan Diffuse pain involving multiple organ systems and joints -Suspect fibromyalgia -No localizing features noted -Advised patient on the need for a rheumatology outpatient evaluation with close follow-up with her PCP -Avoid IV narcotics Hyponatremia, hypochloremic -IV fluids -Follow-up BMP DVT prophylaxis -Heparin subcu The patient is admitted with an anticipated less than 2 midnight stay for evaluation of pain CODE STATUS: Full Code Discussed with: Patient Anticipated discharge date: in am Anticipated discharge place: Home Past Medical History Past Medical History: Coronary Artery Disease (CAD), Diabetes Mellitus, GERD/Reflux, Hyperlipidemia, Myocardial Infarction (MS) Additional Past Medical History / Comment(s): Dx rt breast CA December 2019- radiation and chemo, fx ankle November 2019, MIGRAINES, chronic back pain, gout Last Myocardial Infarction Date:: unk History of Any Multi-Drug Resistant Organisms: None Reported Past Surgical History: Breast Surgery, Heart Catheterization With Stent, Orthopedic Surgery Additional Past Surgical History / Comment(s): ORIF rt ankle , EGD/CO LONOSCOPY, bone marrow bx-neg, TOTAL OF 3 CARDIAC STENTS, breast bx; right breast lumpectomy w/AND 01/30/20; Past Anesthesia/Blood Transfusion Reactions: No Reported Reaction Additional Past Anesthesia/Blood Transfusion Reaction / Comment(s): clauste rphobia Date of Last Stent Placement:: UNK Past Psychological History: Anxiety, Bipolar Additional Psychological History / Comment(s): mood disorder Smoking Status: Former smoker Past Alcohol Use History: None Reported Additional Past Alcohol Use History / Comment(s): pt states she quit smoking 3 days ago Past Drug Use History: None Reported Additional Drug Use History / Comment(s): Pt. states recreational marijuana use "once every couple months" - Past Family History Son(s) Family Medical History: Cancer Sister(s) Family Medical History: Myocardial Infarction (MS) Father Family Medical History: Diabetes Mellitus, Myocardial Infarction (MS) Mother Family Medical History: Cancer, Myocardial Infarction (MS) Medications and Allergies Home Medications Medication Instructions Recorded Confirmed Type PARoxetine HCL [Paxil] 40 mg PO DAILY 06/24/16 05/14/22 History Isosorbide Mononitrate ER [Imdur] 30 mg PO DAILY 09/02/17 05/14/22 History OXcarbazepine [Trileptal] 300 mg PO BID 02/19/20 05/14/22 History Aspirin EC [Ecotrin Low Dose] 81 mg PO DAILY 09/12/20 05/14/22 History traZODone HCL [Desyrel] 50 mg PO HS 02/05/21 05/14/22 History carvediloL [Coreg] 6.25 mg PO AC-BID #60 tab 02/07/21 05/14/22 Rx levETIRAcetam [Keppra] 500 mg PO BID #60 tab 04/12/21 05/14/22 Rx Ergocalciferol (Vitamin D2) 1,250 mcg PO Q7D 07/21/21 05/14/22 History [Drisdol (50,000 Iu)] Rosuvastatin Calcium [Crestor] 10 mg PO DAILY 07/21/21 05/14/22 History HYDROcodone/APAP 7.5-325MG [[place] 1 tab PO BID PRN #6 tab 07/24/21 05/14/22 Rx 7.5-325] Folic Acid 1 mg PO DAILY 08/18/21 05/14/22 History clonazePAM [KlonoPIN] 1 - 2 mg PO DAILY PRN 08/18/21 05/14/22 History Naloxone HCl [Narcan] 4 mg NASAL ONCE PRN 02/07/22 05/14/22 History Ondansetron [Zofran] 4 mg PO Q6H PRN 02/07/22 05/14/22 History Pantoprazole [Protonix] 40 mg PO AC-BRKFST #30 tab 02/09/22 05/14/22 Rx Letrozole [Femara] 2.5 mg PO DAILY 05/14/22 05/14/22 History miSOPROStoL 100 mcg PO ACHS 05/14/22 05/14/22 History Allergies Allergy/AdvReac Type Severity Reaction Status Date / Time codeine AdvReac Nausea & Verified 05/14/22 20:21 Vomiting Latex, Natural Rubber AdvReac Rash/Hives/ Verified 05/14/22 20:21 itching Physical Exam Vitals: Vital Signs Temp Pulse Resp BP Pulse Ox 05/14/22 20:10 72 18 161/70 98 05/14/22 18:49 80 18 154/78 98 05/14/22 16:06 98 F 90 18 157/80 100 Intake and Output 05/14/22 05/14/22 05/15/22 14:59 22:59 06:59 Other: # Voids 0 Weight 55.792 kg Results CBC & Chem 7: 05/14/22 16:26 05/14/22 16:26 Labs: Abnormal Lab Results - Last 24 Hours (Table) 05/14/22 05/14/22 Range/Units 16:26 16:26 MCHC 37.5 H (31.0-37.0) g/dL Sodium 126 L (137-145) mmol/L Chloride 94 L (98-107) mmol/L Carbon Dioxide 20 L (22-30) mmol/L Glucose 106 H (74-99) mg/dL
[2022-05-15] MEDS: HEPARIN SODIUM,PORCINE/PF 5,000 UNIT/0.5 ML SYRINGE SQ SCH ×3 (00:57→15:28)
[2022-05-15] MEDS: HYDROcodone/APAP 7.5-325MG 1 EACH TAB PO PRN ×3 (01:13→23:58)
[2022-05-15 04:39] LABS: Appearance,Urine Clear (Clear); Bilirubin,Urine Negative (Negative); Blood,Urine Negative (Negative); Color,Urine Light Yellow; Glucose,Urine (UA) Negative (Negative); Ketones,Urine Negative (Negative); Leukocyte Esterase,Urine Negative (Negative); Nitrite,Urine Negative (Negative); Protein,Urine Negative (Negative); Specific Gravity,Urine 1.009 (1.001-1.035); Urobilinogen,Urine <2.0 mg/dL (<2.0)
[2022-05-15] MEDS: PANTOPRAZOLE 40 MG TABLET PO SCH (07:00)
[2022-05-15] MEDS: carvediloL 6.25 MG TAB PO SCH ×2 (07:00→16:38)
[2022-05-15] MEDS ORDERED: miSOPROStoL 100 MCG TAB PO SCH (07:30)
[2022-05-15 08:55] LABS: African American GFR (CKD) 84.8 (60.0-200.0); Anion Gap 6.3 mmol/L (10.00-18.00); BUN/Creat Ratio 13.38 Ratio (12.00-20.00); Blood Urea Nitrogen 10.7 mg/dL (9.0-27.0); Calcium 8.7 mg/dL (8.7-10.3); Carbon Dioxide 24.7 mmol/L (20.0-27.5); Non-African American GFR(CKD) 73.1 (60.0-200.0); Potassium 4.2 mmol/L (3.5-5.5)
[2022-05-15] MEDS: ISOSORBIDE MONONITRATE ER 30 MG TAB.ER.24H PO SCH (09:26)
[2022-05-15] MEDS: SODIUM CHLORIDE 0.9% 1,000 ML IV SCH ×2 (09:26→14:28)
[2022-05-15] MEDS: FOLIC ACID 1 MG TAB PO SCH (09:26)
[2022-05-15] MEDS: ASPIRIN 81 MG PO SCH (09:26)
[2022-05-15] MEDS: levETIRAcetam 500 MG TAB PO SCH ×3 (09:26→20:52)
[2022-05-15] MEDS: ATORVASTATIN 20 MG TAB PO SCH (09:26)
[2022-05-15] MEDS: OXcarbazepine 300 MG TAB PO SCH ×3 (09:27→20:55)
[2022-05-15] MEDS: LETROZOLE 2.5 MG TAB PO SCH (09:27)
[2022-05-15] MEDS: PARoxetine 20 MG TAB PO SCH (09:27)
--- NOTE | 2022-05-15 11:26 | CT ---
EXAMINATION TYPE: CT abdomen pelvis wo con CT DLP: 588 mGycm, Automated exposure control for dose reduction was used. DATE OF EXAM: 05/15/2022 10:47 AM COMPARISON: CT abdomen pelvis most recent from 09/12/2020. CLINICAL INDICATION:Female, 71 years old with history of diarrhea and belly pain; TECHNIQUE: Axial CT of the abdomen and pelvis. Sagittal and coronal reformats were created on a [employer] workstation. Contrast used: None Oral contrast used: without Oral Contrast FINDINGS: LOWER CHEST: Unremarkable ABDOMEN LIVER: Unremarkable GALLBLADDER AND BILE DUCTS: Unremarkable. PANCREAS: Unremarkable. SPLEEN: Unremarkable. ADRENAL GLANDS: Unremarkable. KIDNEYS AND URETERS: No evidence of hydronephrosis or renal calculus. Extrarenal pelvis on the right. PELVIS BLADDER: Incompletely distended but grossly unremarkable. REPRODUCTIVE: Unremarkable. ABDOMEN & PELVIS STOMACH AND BOWEL: No evidence of bowel obstruction. There is a large stool burden throughout the col on. A redundant colon is also present. Small hiatal hernia. PERITONEUM: No evidence of pneumoperitoneum or free fluid. VASCULATURE: No evidence of aortic aneurysm. Atherosclerosis of the arterial vasculature. MUSCULOSKELETAL: No acute osseous abnormalities, multilevel disc degeneration changes seen throughout the spine. LYMPH NODES: No gross evidence for lymphadenopathy. SOFT TISSUE/ABDOMINAL WALL: Subcutaneous gas along the anterior abdomen likely secondary to medicine injections. IMPRESSION: 1. No evidence for acute intraluminal process. There is a large stool burden throughout the colon cor relate for fecal stasis/constipation. 2. Small hiatal hernia.
[2022-05-15] MEDS ORDERED: bisacodyL 10 MG SUPP RECTAL STA (13:05)
--- NOTE | 2022-05-15 13:14 | P.PN ---
Subjective Progress Note Date: 05/15/22 The patient is 71-year-old female with coronary artery disease status post stenting, type II DM, seizure disorder, hypertension, and hyperlipidemia who presents to the emergency room with complaints of generalized pain. In the emergency department she underwent an extensive evaluation. Her initial vital signs within normal limits. Chest x-ray in the emergency room revealed chronic changes with mild cardiomegaly with no acute abnormalities. KUB x-ray was unremarkable. EKG revealed normal sinus rhythm at [address]/T-wave changes noted as reviewed by me. Laboratory evaluation was remarkable for sodium 126, chloride 94, glucose 106, and troponin less than 0.012. Her troponin remained negative. In the morning she was complaining of back pain, hip pain, abdominal pain, and passing frequent small amounts of liquid stool. CT abdomen and pelvis was ordered which showed that can amounts of fecal stasis and impaction. Patient seen and examined at bedside. She complains of abdominal pain, back pain, pelvic pain. She states that this morning she started having small frequent liquid bowel movements. She denies any nausea or vomiting. She has been tolerating a diet. General: nontoxic, no distress, appears at stated age Derm: warm, dry Head: atraumatic, normocephalic, symmetric Eyes: EOMI, no lid lag, anicteric sclera Mouth: no lip lesion, mucus membranes moist Cardiovascular: S1S2 reg, no murmur, positive posterior tibial pulse bilateral, Lungs: CTA bilateral, no rhonchi, no rales , no accessory muscle use Abdominal: soft, pain to palpation over periumbilical area, no guarding, no appreciable organomegaly Ext: no gross muscle atrophy, no edema, no contractures Neuro: CN II-XI grossly intact, no focal neuro deficits Psych: Alert, oriented, appropriate affect Assessment/plan: Abdominal pain secondary to fecal stasis -Ordered CT abdomen and pelvis today which resulted with fecal stasis and impaction -Warm prune juice, coffee, to collect suppository 1, encourage oral intake Hypovolemic, hyponatremia -Likely secondary to decreased oral intake due to abdominal pain -Patient also has a history of hyponatremia with baseline sodium levels of 133 -Continue with IV fluids -Repeat sodium level in a.m. -May need to consider outpatient SIADH workup given her psychiatric medications Chronic pain -Likely opiate-induced constipation -Continue with home [place] Diabetes mellitus type 2 -Diet controlled at home -Blood sugars have been normal on a.m. fasting blood work -We'll continue to monitor with and blood work. Chronic: History of myocardial infarction History of GERD Dyslipidemia DVT prophylaxis: Heparin Discussed with: Pt, nursing Anticipated discharge: in AM Anticipated discharge place: home A total of 35 minutes was spent on the care of this complex patient more than 50% of the time was spent in counseling and care coordination. Objective - Vital Signs Vital signs: Vital Signs Temp 98.2 F 05/15/22 06:21 Pulse 68 05/15/22 06:21 Resp 18 05/15/22 06:21 BP 156/58 05/15/22 06:21 Pulse Ox 97 05/15/22 06:21 FiO2 Intake & Output 05/14/22 05/15/22 05/15/22 18:59 06:59 18:59 Weight 55.792 kg 55.792 kg Other: Voiding Method Toilet # Voids 4 6 # Bowel Movements 2 - Labs CBC & Chem 7: 05/14/22 16:26 05/15/22 05:37 Labs: Abnormal Lab Results - Last 24 Hours (Table) 05/14/22 05/14/22 05/15/22 Range/Units 16:26 16:26 01:13 MCHC 37.5 H (31.0-37.0) g/dL Sodium 126 L (137-145) mmol/L Chloride 94 L (98-107) mmol/L Carbon Dioxide 20 L (22-30) mmol/L Anion Gap (10.00-18.00) mmol/L Glucose 106 H (74-99) mg/dL Lipase 581 H (23-300) U/L 05/15/22 Range/Units 05:37 MCHC (31.0-37.0) g/dL Sodium 128 L (137-145) mmol/L Chloride (98-107) mmol/L Carbon Dioxide (22-30) mmol/L Anion Gap 6.30 L (10.00-18.00) mmol/L Glucose (74-99) mg/dL Lipase (23-300) U/L
[2022-05-15] MEDS ORDERED: traZODone HCL 50 MG TAB PO SCH (21:00)
[2022-05-16] MEDS: HEPARIN SODIUM,PORCINE/PF 5,000 UNIT/0.5 ML SYRINGE SQ SCH ×2 (00:43→08:02)
[2022-05-16] MEDS: SODIUM CHLORIDE 0.9% 1,000 ML IV SCH ×2 (01:05→08:07)
[2022-05-16] MEDS: PANTOPRAZOLE 40 MG TABLET PO SCH (06:22)
[2022-05-16] MEDS: carvediloL 6.25 MG TAB PO SCH (06:23)
[2022-05-16 06:45] VITALS: RESP 18
[2022-05-16] MEDS: ASPIRIN 81 MG PO SCH (08:02)
[2022-05-16] MEDS: ISOSORBIDE MONONITRATE ER 30 MG TAB.ER.24H PO SCH (08:02)
[2022-05-16] MEDS: FOLIC ACID 1 MG TAB PO SCH (08:02)
[2022-05-16] MEDS: ATORVASTATIN 20 MG TAB PO SCH (08:02)
[2022-05-16] MEDS: PARoxetine 20 MG TAB PO SCH (08:03)
[2022-05-16] MEDS: OXcarbazepine 300 MG TAB PO SCH (08:03)
[2022-05-16] MEDS: LETROZOLE 2.5 MG TAB PO SCH (08:03)
[2022-05-16 08:08] LABS: African American GFR (CKD) >90 (>60 ml/min/1.73 sqM); Anion Gap 13 mmol/L; Blood Urea Nitrogen 5 mg/dL (7-17); Carbon Dioxide 17 mmol/L (22-30); Chloride 101 mmol/L (98-107); Glucose 113 mg/dL (74-99); Non-African American GFR(CKD) 81 (>60 ml/min/1.73 sqM); Potassium 3.7 mmol/L (3.5-5.1); Sodium 131 mmol/L (137-145)
[2022-05-16] MEDS: levETIRAcetam 500 MG TAB PO SCH (08:11)
[2022-05-16 08:33] VITALS: BP 155/71; PULSE 65; TEMP 97.7
--- NOTE | 2022-05-16 10:09 | P.DS ---
Providers Date of admission: 05/14/22 18:03 Expected date of discharge: 05/16/22 Attending physician: Cayden Garduno MD Primary care physician: Lucien Bishop Hospital Course: Discharge Diagnosis: Abdominal pain secondary to fecal stasis Hypovolemic, hyponatremia Chronic pain Diabetes mellitus type 2 History of myocardial infarction History of GERD Dyslipidemia Hospital Course: The patient is 71-year-old female with coronary artery disease status post stenting, type II DM, seizure disorder, hypertension, and hyperlipidemia who presents to the emergency room with complaints of generalized pain. In the emergency department she underwent an extensive evaluation. Her initial vital signs within normal limits. Chest x-ray in the emergency room revealed chronic changes with mild cardiomegaly with no acute abnormalities. KUB x-ray was unremarkable. EKG revealed normal sinus rhythm at [address]/T-wave changes noted as reviewed by me. Laboratory evaluation was remarkable for sodium 126, chloride 94, glucose 106, and troponin less than 0.012. Her troponin remained negative. In the morning she was complaining of back pain, hip pain, abdominal pain, and passing frequent small amounts of liquid stool. CT abdomen and pelvis was ordered which showed that can amounts of fecal stasis and impaction. She has had a Dulcolax at 1 on 05/15 with multiple solid bowel movements. She was doing well and was stable for discharge. Follow-up: Dr. Montero in 1 week, take miralax daily for 7 days and then decrease to every other day for daily bowel movements. Patient seen and examined at bedside. She is worried she has had semisolid bowel movements. We discussed that she had copious amounts of stool within her colon on the CAT scan. We discussed that she will need to have a bowel regimen on discharge. Vital signs reviewed and stable. General: nontoxic, no distress, appears at stated age Derm: warm, dry Head: atraumatic, normocephalic, symmetric Eyes: EOMI, no lid lag, anicteric sclera Mouth: no lip lesion, mucus membranes moist Lungs: chest rise equal, no accessory muscle use Abdominal: soft, nontender to palpation, no guarding, no appreciable organomegaly Ext: no gross muscle atrophy, no edema, no contractures Neuro: CN II-XI grossly intact, no focal neuro deficits Psych: Alert, oriented, appropriate affect A total of 25 minutes of time were spent preparing this complex discharge summary. Patient was discharged on 05/16/22. Patient Condition at Discharge: Good Plan - Discharge Summary New Discharge Prescriptions: Continue PARoxetine HCL [Paxil] 40 mg PO DAILY Isosorbide Mononitrate ER [Imdur] 30 mg PO DAILY OXcarbazepine [Trileptal] 300 mg PO BID Aspirin EC [Ecotrin Low Dose] 81 mg PO DAILY traZODone HCL [Desyrel] 50 mg PO HS Ergocalciferol (Vitamin D2) [Drisdol (50,000 Iu)] 1,250 mcg PO Q7D HYDROcodone/APAP 7.5-325MG [[place] 7.5-325] 1 tab PO BID PRN #6 tab PRN Reason: Pain Folic Acid 1 mg PO DAILY Ondansetron [Zofran] 4 mg PO Q6H PRN PRN Reason: Nausea And Vomiting Naloxone HCl [Narcan] 4 mg NASAL ONCE PRN PRN Reason: overdose Pantoprazole [Protonix] 40 mg PO AC-BRKFST #30 tab carvediloL [Coreg] 6.25 mg PO AC-BID #60 tab levETIRAcetam [Keppra] 500 mg PO BID #60 tab Rosuvastatin Calcium [Crestor] 10 mg PO DAILY clonazePAM [KlonoPIN] 1 - 2 mg PO DAILY PRN PRN Reason: Anxiety Letrozole [Femara] 2.5 mg PO DAILY miSOPROStoL 100 mcg PO ACHS Discharge Medication List PARoxetine HCL [Paxil] 40 mg PO DAILY 06/24/16 [History] Isosorbide Mononitrate ER [Imdur] 30 mg PO DAILY 09/02/17 [History] OXcarbazepine [Trileptal] 300 mg PO BID 02/19/20 [History] Aspirin EC [Ecotrin Low Dose] 81 mg PO DAILY 09/12/20 [History] traZODone HCL [Desyrel] 50 mg PO HS 02/05/21 [History] carvediloL [Coreg] 6.25 mg PO AC-BID #60 tab 02/07/21 [Rx] levETIRAcetam [Keppra] 500 mg PO BID #60 tab 04/12/21 [Rx] Ergocalciferol (Vitamin D2) [Drisdol (50,000 Iu)] 1,250 mcg PO Q7D 07/21/21 [History] Rosuvastatin Calcium [Crestor] 10 mg PO DAILY 07/21/21 [History] HYDROcodone/APAP 7.5-325MG [[place] 7.5-325] 1 tab PO BID PRN #6 tab 07/24/21 [Rx] Folic Acid 1 mg PO DAILY 08/18/21 [History] clonazePAM [KlonoPIN] 1 - 2 mg PO DAILY PRN 08/18/21 [History] Naloxone HCl [Narcan] 4 mg NASAL ONCE PRN 02/07/22 [History] Ondansetron [Zofran] 4 mg PO Q6H PRN 02/07/22 [History] Pantoprazole [Protonix] 40 mg PO AC-BRKFST #30 tab 02/09/22 [Rx] Letrozole [Femara] 2.5 mg PO DAILY 05/14/22 [History] miSOPROStoL 100 mcg PO ACHS 05/14/22 [History] Follow up Appointment(s)/Referral(s): Lucien Bishop MD [Primary Care Provider] - 1-2 days Patient Instructions/Handouts: Constipation (DC) Activity/Diet/Wound Care/Special Instructions: Activity: as tolerated Diet: Regular Special Instructions: You have significant constipation which is likely related to your home norco. Take Miralax 17grams (1 cap full) daily for the next 7 days, then take every other day to enure you are having daily bowel movements. Discharge Disposition: HOME SELF-CARE
[2022-05-16] MEDS ORDERED: clonazePAM 1 MG TAB PO PRN (10:21)
[2022-05-16] MEDS ORDERED: clonazePAM 1 MG TAB ONE (10:26)
== END 2022-05-16 12:27 | disposition home or self-care (01) ==
LOC: EC 15:57 → 6NMEDSUR 18:03
PROVIDERS: ADMIT Family Medicine; ATTEND Family Medicine
DX: K56.41 Fecal impaction (principal); E87.1 Hypo-osmolality and hyponatremia; I25.10 Atherosclerotic heart disease of native coronary artery without angina pectoris; E11.9 Type 2 diabetes mellitus without complications; K21.9 Gastro-esophageal reflux disease without esophagitis; I25.2 Old myocardial infarction; M10.9 Gout, unspecified; E78.5 Hyperlipidemia, unspecified; M54.9 Dorsalgia, unspecified; G89.29 Other chronic pain; F31.9 Bipolar disorder, unspecified; F41.9 Anxiety disorder, unspecified; I11.9 Hypertensive heart disease without heart failure; G40.909 Epilepsy, unspecified, not intractable, without status epilepticus; F12.90 Cannabis use, unspecified, uncomplicated; F39 Unspecified mood [affective] disorder; K44.9 Diaphragmatic hernia without obstruction or gangrene; Q43.8 Other specified congenital malformations of intestine; Z95.5 Presence of coronary angioplasty implant and graft; Z79.899 Other long term (current) drug therapy; Z79.82 Long term (current) use of aspirin; Z88.6 Allergy status to analgesic agent; Z91.040 Latex allergy status; Z85.3 Personal history of malignant neoplasm of breast; Z92.3 Personal history of irradiation; Z92.21 Personal history of antineoplastic chemotherapy; Z82.49 Family history of ischemic heart disease and other diseases of the circulatory system; Z83.3 Family history of diabetes mellitus; Z20.822 Contact with and (suspected) exposure to COVID-19; Z79.811 Long term (current) use of aromatase inhibitors
CPT/HCPCS: 96372; 96376; 96374; 96375; 99285; 36415; 93005; 83880; 80053; 80048 ×2; 83690 ×2; 84484 ×2; 85025; 85610; 85730; 81003; 87502; 87635; 71046; 74018; 74176; G0378 ×3; J2060; J2405; J1170; J1644

== ENCOUNTER 2022-06-11 20:27 | Inpatient (IN) | payer MEDICARE, OTHER ==
--- NOTE | 2022-06-11 21:26 | ED ---
General Adult HPI - General Chief complaint: Recheck/Abnormal Lab/Rx Stated complaint: Chest pain Time Seen by Provider: 06/11/22 21:03 Source: patient, RN notes reviewed Mode of arrival: ambulatory Limitations: no limitations - History of Present Illness Initial comments: 72-year-old female presents to the emergency Department with complaints of generalized weakness and "pain all over." Patient has poorly localized pain and is anxious and tearful. States she lives alone independently and has visiting physician that comes to the house once a month. Uses a walker to ambulate but has had lots of falls, though with no injuries. Complains of being unsteady on her feet but denies dizziness. States she was hospitalized last month for an "intestinal problem" and is taking stool softeners now with some resolution to that issue. Reports loss appetite due to a sense of abdominal fullness with oral intake. States she is trying to drink water but it makes her nauseous. Denies fever, chills, headache, dizziness, chest pain, diarrhea, dysuria, and lower extremity edema. - Related Data Home Medications Medication Instructions Recorded Confirmed PARoxetine HCL [Paxil] 40 mg PO DAILY 06/24/16 06/12/22 Isosorbide Mononitrate ER [Imdur] 30 mg PO DAILY 09/02/17 06/12/22 OXcarbazepine [Trileptal] 300 mg PO BID 02/19/20 06/12/22 Aspirin EC [Ecotrin Low Dose] 81 mg PO DAILY 09/12/20 06/12/22 traZODone HCL [Desyrel] 50 mg PO HS 02/05/21 06/12/22 Ergocalciferol (Vitamin D2) 1,250 mcg PO GONZALEZ 07/21/21 06/12/22 [Drisdol (50,000 Iu)] Rosuvastatin Calcium [Crestor] 10 mg PO DAILY 07/21/21 06/12/22 Folic Acid 1 mg PO DAILY 08/18/21 06/12/22 clonazePAM [KlonoPIN] 1 - 2 mg PO DAILY PRN 08/18/21 06/12/22 Naloxone HCl [Narcan] 4 mg NASAL ONCE PRN 02/07/22 06/12/22 Ondansetron [Zofran] 4 mg PO Q6H PRN 02/07/22 06/12/22 Letrozole [Femara] 2.5 mg PO DAILY 05/14/22 06/12/22 miSOPROStoL 100 mcg PO ACHS 05/14/22 06/12/22 HYDROcodone/APAP 10-325MG [[place] 1 tab PO BID PRN 06/12/22 06/12/22 10-325] Previous Rx's Medication Instructions Recorded carvediloL [Coreg] 6.25 mg PO AC-BID #60 tab 02/07/21 levETIRAcetam [Keppra] 500 mg PO BID #60 tab 04/12/21 Pantoprazole [Protonix] 40 mg PO AC-BRKFST #30 tab 02/09/22 Allergies Allergy/AdvReac Type Severity Reaction Status Date / Time codeine AdvReac Nausea & Verified 06/12/22 12:07 Vomiting Latex, Natural Rubber AdvReac Rash/Hives/ Verified 06/12/22 12:07 itching Review of Systems ROS Statement: Those systems with pertinent positive or pertinent negative responses have been documented in the HPI. ROS Other: All systems not noted in ROS Statement are negative. Past Medical History Past Medical History: Coronary Artery Disease (CAD), Diabetes Mellitus, GERD/Reflux, Hyperlipidemia, Myocardial Infarction ([place]) Additional Past Medical History / Comment(s): Dx rt breast CA December 2019- radiation and chemo, fx ankle November 2019, MIGRAINES, chronic back pain, gout Last Myocardial Infarction Date:: unk History of Any Multi-Drug Resistant Organisms: None Reported Past Surgical History: Breast Surgery, Heart Catheterization With Stent, Orthopedic Surgery Additional Past Surgical History / Comment(s): ORIF rt ankle , EGD/COLONOSCOPY, bone marrow bx-neg, TOTAL OF 3 CARDIAC STENTS, breast bx; right breast lumpectomy w/AND 01/30/20; Past Anesthesia/Blood Transfusion Reactions: No Reported Reaction Additional Past Anesthesia/Blood Transfusion Reaction / Comment(s): clausterphobia Date of Last Stent Placement:: UNK Past Psychological History: Anxiety, Bipolar Smoking Status: Former smoker Past Alcohol Use History: None Reported Past Drug Use History: None Reported - Past Family History Son(s) Family Medical History: Cancer Sister(s) Family Medical History: Myocardial Infarction ([place]) Father Family Medical History: Diabetes Mellitus, [place]ocardial Infarction ([place]) Mother Family Medical History: Cancer, Myocardial Infarction ([place]) General Exam Limitations: no limitations General appearance: alert, anxious ENT exam: Present: mucous membranes dry Respiratory exam: Present: normal lung sounds bilaterally. Absent: respiratory distress, wheezes, rales, rhonchi, stridor, chest wall tenderness Cardiovascular Exam: Present: regular rate, normal rhythm, normal heart sounds. Absent: systolic murmur, diastolic murmur, rubs, gallop, clicks GI/Abdominal exam: Present: soft, tenderness (diffuse tenderness upon palpation), guarding (guarding the upper abdomen), normal bowel sounds. Absent: distended, rebound, rigid Psychiatric exam: Present: anxious Skin exam: Present: warm, dry, intact, normal color. Absent: rash Course Vital Signs 06/11/22 06/12/22 06/12/22 20:29 02:57 07:23 Temperature 97.8 F Pulse Rate 63 62 64 Pulse Rate [ Pulse Oximetery ] Respiratory 20 16 18 Rate Blood Pressure 125/73 116/58 120/55 Blood Pressure [Left Arm] O2 Sat by Pulse 100 100 97 Oximetry 06/12/22 06/12/22 06/12/22 10:38 14:32 18:27 Temperature 98.3 F Pulse Rate 65 67 Pulse Rate [ 64 Pulse Oximetery ] Respiratory 20 20 16 Rate Blood Pressure 124/56 127/94 Blood Pressure 135/67 [Left Arm] O2 Sat by Pulse 100 100 100 Oximetry - Reevaluation(s) Reevaluation #1: 06/12/22 02:26 Upon reassessment, patient is again reminded of the need for urine sample. She complains of upper abdominal pain and low back pain. Requesting an additional dose of pain medicine. Discussed hospital admission for intractable pain and hyponatremia. Results reviewed with patient including discussion of elevated lipase level. Medical Decision Making - Medical Decision Making This is a 72-year-old female with a past medical history of CAD, [place], hyperlipidemia, diabetes, and mental illness who presents to the emergency department for multiple complaints including generalized weakness and fatigue, multiple falls, and diffuse pain. Upon exam, patient is anxious and tearful, but with no localized area of reproducible pain. Laboratory studies were obtained and patient is found to be hyponatremic with a sodium of 126, chloride 97. Lipase is elevated at 599. Troponin is negative. Urinalysis is negative. Patient was given IV fluids, Zofran, and Dilaudid with some improvement. Imaging shows no acute findings. She will be admitted for generalized weakness, intractable pain, and hyponatremia. This patient's care was discussed with my attending, Dr. Darling. - Lab Data Result diagrams: 06/13/22 08:53 06/13/22 08:53 Lab Results 06/11/22 06/11/22 06/11/22 Range/Units 21:50 21:50 21:50 WBC 4.8 (3.8-10.6) k/uL RBC 3.63 L (3.80-5.40) m/uL Hgb 12.5 (11.4-16.0) gm/dL Hct 33.2 L (34.0-46.0) % MCV 91.2 (80.0-100.0) fL MCH 34.3 (25.0-35.0) pg MCHC 37.6 H (31.0-37.0) g/dL RDW 11.6 (11.5-15.5) % Plt Count 174 (150-450) k/uL MPV 7.5 Neutrophils % 61 % Lymphocytes % 26 % Monocytes % 7 % Eosinophils % 2 % Basophils % 1 % Neutrophils # 2.9 (1.3-7.7) k/uL Lymphocytes # 1.2 (1.0-4.8) k/uL Monocytes # 0.3 (0-1.0) k/uL Eosinophils # 0.1 (0-0.7) k/uL Basophils # 0.0 (0-0.2) k/uL PT 10.0 (9.0-12.0) sec INR 0.9 (<1.2) APTT 23.5 (22.0-30.0) sec Sodium 126 L (137-145) mmol/L Potassium 4.4 (3.5-5.1) mmol/L Chloride 97 L (98-107) mmol/L Carbon Dioxide 24 (22-30) mmol/L Anion Gap 5 mmol/L BUN 16 (7-17) mg/dL Creatinine 1.01 (0.52-1.04) mg/dL Est GFR (CKD-EPI)AfAm 64 (>60 ml/min/1.73 sqM) Est GFR (CKD-EPI)NonAf 55 (>60 ml/min/1.73 sqM) Glucose 105 H (74-99) mg/dL Plasma Lactic Acid Lino (0.7-2.0) mmol/L Calcium 9.0 (8.4-10.2) mg/dL Total Bilirubin 0.3 (0.2-1.3) mg/dL AST 19 (14-36) U/L ALT 17 (4-34) U/L Alkaline Phosphatase 89 (38-126) U/L Troponin I (0.000-0.034) ng/mL Total Protein 6.0 L (6.3-8.2) g/dL Albumin 4.0 (3.5-5.0) g/dL Amylase 98 (30-110) U/L Lipase 599 H (23-300) U/L Urine Color Urine Appearance (Clear) Urine pH (5.0-8.0) Ur Specific [place] (1.001-1.035) Urine Protein (Negative) Urine Glucose (UA) (Negative) Urine Ketones (Negative) Urine Blood (Negative) Urine Nitrite (Negative) Urine Bilirubin (Negative) Urine Urobilinogen (<2.0) mg/dL Ur Leukocyte Esterase (Negative) 06/11/22 06/11/22 06/12/22 Range/Units 21:50 21:50 02:57 WBC (3.8-10.6) k/uL RBC (3.80-5.40) m/uL Hgb (11.4-16.0) gm/dL Hct (34.0-46.0) % MCV (80.0-100.0) fL MCH (25.0-35.0) pg MCHC (31.0-37.0) g/dL RDW (11.5-15.5) % Plt Count (150-450) k/uL MPV Neutrophils % % Lymphocytes % % Monocytes % % Eosinophils % % Basophils % % Neutrophils # (1.3-7.7) k/uL Lymphocytes # (1.0-4.8) k/uL Monocytes # (0-1.0) k/uL Eosinophils # (0-0.7) k/uL Basophils # (0-0.2) k/uL PT (9.0-12.0) sec INR (<1.2) APTT (22.0-30.0) sec Sodium (137-145) mmol/L Potassium (3.5-5.1) mmol/L Chloride (98-107) mmol/L Carbon Dioxide (22-30) mmol/L Anion Gap mmol/L BUN (7-17) mg/dL Creatinine (0.52-1.04) mg/dL Est GFR (CKD-EPI)AfAm (>60 ml/min/1.73 sqM) Est GFR (CKD-EPI)NonAf (>60 ml/min/1.73 sqM) Glucose (74-99) mg/dL Plasma Lactic Acid Lino 1.4 (0.7-2.0) mmol/L Calcium (8.4-10.2) mg/dL Total Bilirubin (0.2-1.3) mg/dL AST (14-36) U/L ALT (4-34) U/L Alkaline Phosphatase (38-126) U/L Troponin I <0.012 (0.000-0.034) ng/mL Total Protein (6.3-8.2) g/dL Albumin (3.5-5.0) g/dL Amylase (30-110) U/L Lipase (23-300) U/L Urine Color Colorless Urine Appearance Clear (Clear) Urine pH 6.5 (5.0-8.0) Ur Specific [place] 1.032 (1.001-1.035) Urine Protein Negative (Negative) Urine Glucose (UA) Negative (Negative) Urine Ketones Negative (Negative) Urine Blood Negative (Negative) Urine Nitrite Negative (Negative) Urine Bilirubin Negative (Negative) Urine Urobilinogen <2.0 (<2.0) mg/dL Ur Leukocyte Esterase Negative (Negative) - EKG Data EKG shows normal: sinus rhythm Rate: normal EKG Comments: EKG obtained at 2043 shows sinus bradycardia with moderate ST depression. Ventricular rate 57, NH interval 192, QRS duration, QT/QTc 49/404. Interpretation abnormal ECG. - Radiology Data Radiology results: report reviewed, image reviewed Interpreted by me: KUB x-ray was visualized showing no evidence of obstruction. KUB x-ray was obtained. Report was reviewed in its entirety. Impression per Dr. Pascal is nonacute abdomen. No adverse change. CT the abdomen and pelvis with contrast was obtained. Report was reviewed in its entirety. Impression per Dr. Naida as negative computed tomography scan of the abdomen and pelvis. Normal appendix. No adverse change. Disposition Clinical Impression: Intractable pain, Hyponatremia Disposition: ADMITTED IP TO THIS [facility] Condition: Serious Decision Date: 06/12/22 Decision Time: 02:39
[2022-06-11] MEDS ORDERED: ONDANSETRON 4 MG/2 ML VIAL IVP STA (21:30)
[2022-06-11] MEDS ORDERED: SODIUM CHLORIDE 0.9% 1,000 ML IV STA (21:30)
[2022-06-11] MEDS ORDERED: HYDROmorphone 0.5 MG/0.5 ML SYRINGE IVP STA (21:32)
[2022-06-11 22:05] LABS: Basophils % (A) 1 %; Eosinophils # (A) 0.1 k/uL (0-0.7); Eosinophils % (A) 2 %; HCT 33.2 % (34.0-46.0); HGB 12.5 gm/dL (11.4-16.0); Lymphocytes # (A) 1.2 k/uL (1.0-4.8); Lymphocytes % (A) 26 %; MCH 34.3 pg (25.0-35.0); MCHC 37.6 g/dL (31.0-37.0); MCV 91.2 fL (80.0-100.0); Mean Platelet Volume 7.5; Monocytes # (A) 0.3 k/uL (0-1.0); Monocytes % (A) 7 %; Neutrophils # (A) 2.9 k/uL (1.3-7.7); Neutrophils % (A) 61 %; Platelet Count 174 k/uL (150-450); RBC 3.63 m/uL (3.80-5.40); RDW 11.6 % (11.5-15.5); WBC 4.8 k/uL (3.8-10.6)
[2022-06-11 22:25] LABS: Potassium 4.4 mmol/L (3.5-5.1); Total Bilirubin 0.3 mg/dL (0.2-1.3)
[2022-06-11 22:33] LABS: INR 0.9 (<1.2); Partial Thromboplastin Time 23.5 sec (22.0-30.0)
--- NOTE | 2022-06-11 22:42 | XR ---
EXAMINATION TYPE: XR KUB DATE OF EXAM: 06/11/2022 COMPARISON: 05/14/2022 HISTORY: Abdominal pain TECHNIQUE: FINDINGS: 2 views upright were obtained that show no sign of intestinal obstruction or pneumoperitone um. Fecal pattern is normal. No evidence of a mass. No pathologic calcification over the kidneys. IMPRESSION: Nonacute abdomen. No adverse change.
--- NOTE | 2022-06-12 00:53 | CT ---
EXAMINATION TYPE: CT abdomen pelvis w con DATE OF EXAM: 06/12/2022 COMPARISON: 05/15/2022 HISTORY: BODY PAIN FOR A WHILE CT DLP: 612.3 mGycm Automated exposure control for dose reduction was used. CONTRAST: Performed with IV Contrast, patient injected with 80 mL of Isovue 300. Images obtained from the diaphragm to the floor the pelvis with the IV contrast. The lung bases are clear. No pleural effusion. Heart size is normal. No pericardial effusion. Liver s pleen and stomach pancreas and gallbladder appear intact. The bile ducts are not dilated. There is no adrenal mass. Kidneys show satisfactory contrast opacification. No hydronephrosis. Ureter s are not dilated. Bladder distends smoothly. No inguinal hernia. No free fluid in the pelvis. Uterus is anteverted. Abdominal aorta is atheromatous. There is no mesenteric edema. No ascites or free air. No sign of a b owel obstruction. Appendix is posterior and appears normal. The lumbar vertebrae have normal alignmen t. There is L1-2 disc space narrowing with spur formation. No compression fracture. The bony pelvis i s intact. The hip joints are intact. IMPRESSION: Negative CT scan abdomen and pelvis. Normal appendix. No adverse change.
[2022-06-12] MEDS ORDERED: SODIUM CHLORIDE 0.9% 1,000 ML IV STA (01:28)
[2022-06-12] MEDS ORDERED: HYDROmorphone 0.5 MG/0.5 ML SYRINGE IVP STA (02:25)
[2022-06-12 03:06] LABS: Appearance,Urine Clear (Clear); Bilirubin,Urine Negative (Negative); Blood,Urine Negative (Negative); Color,Urine Colorless; Glucose,Urine (UA) Negative (Negative); Ketones,Urine Negative (Negative); Leukocyte Esterase,Urine Negative (Negative); Nitrite,Urine Negative (Negative); PH, Urine 6.5 (5.0-8.0); Protein,Urine Negative (Negative); Specific Gravity,Urine 1.032 (1.001-1.035); Urobilinogen,Urine <2.0 mg/dL (<2.0)
[2022-06-12] MEDS ORDERED: HYDROmorphone 0.5 MG/0.5 ML SYRINGE IVP PRN (04:54)
[2022-06-12] MEDS ORDERED: ONDANSETRON 4 MG/2 ML VIAL IVP PRN (04:54)
[2022-06-12] MEDS ORDERED: NALOXONE 0.4 MG/ML 1 ML VIAL IV PRN (04:54)
[2022-06-12] MEDS: SODIUM CHLORIDE 0.9% 1,000 ML IV SCH ×3 (04:58→17:55)
[2022-06-12] MEDS ORDERED: FAMOTIDINE 20 MG TAB PO SCH (09:00)
[2022-06-12] MEDS ORDERED: HYDROcodone/APAP 10-325MG 1 EACH TAB PO PRN (13:30)
[2022-06-12] MEDS ORDERED: PANTOPRAZOLE 40 MG TABLET PO SCH (13:45)
[2022-06-12] MEDS: carvediloL 3.125 MG TAB PO SCH ×2 (14:35→16:35)
[2022-06-12] MEDS: OXcarbazepine 300 MG TAB PO SCH ×2 (14:35→21:55)
[2022-06-12] MEDS: levETIRAcetam 500 MG TAB PO SCH ×2 (14:35→21:54)
[2022-06-12] MEDS: ASPIRIN 81 MG PO SCH (14:35)
[2022-06-12] MEDS: ISOSORBIDE MONONITRATE ER 30 MG TAB.ER.24H PO SCH (14:36)
[2022-06-12] MEDS: ATORVASTATIN 20 MG TAB PO SCH (14:36)
[2022-06-12] MEDS: PARoxetine 20 MG TAB PO SCH (14:36)
--- NOTE | 2022-06-12 15:01 | XR ---
EXAMINATION TYPE: XR lumbosacral spine min 4V DATE OF EXAM: 06/12/2022 2:29 PM INDICATION: Patient age:Female; 72 years old; Reason for study: lower back pain. COMPARISON: 07/21/2021 TECHNIQUE: Frontal, lateral , bilateral oblique and coned in L5-S1 lateral views of the spine. FINDINGS: No evidence of any acute osseous pathology. No evidence of loss of vertebral body height i s seen. There is normal alignment of the lumbar vertebral bodies. Mild scattered disc space narrowing . Multilevel marginal osteophyte formation throughout the visualized spine. There is facet joint arth ropathy throughout the spine. Scattered at least mild neural foraminal stenosis. Calcifications of th e arterial vasculature. IMPRESSION: 1. No acute fracture. 2. Mild multilevel disc degeneration.
[2022-06-12] MEDS: LETROZOLE 2.5 MG TAB PO SCH (16:31)
[2022-06-12] MEDS: miSOPROStoL 100 MCG TAB PO SCH ×3 (16:32→22:00)
[2022-06-12] MEDS ORDERED: LACTULOSE 20 GM/30 ML CUP PO ONE (19:53)
[2022-06-12] MEDS ORDERED: LACTULOSE 20 GM/30 ML CUP PO PRN (19:53)
--- NOTE | 2022-06-12 19:53 | P.HPIM ---
History of Present Illness H&P Date: 06/12/22 Chief Complaint: Abdominal and back pain This is a pleasant 72-year-old patient, follows with visiting physicians Dr. Bishop. Chronic stable medical conditions include CAD with stent, diabetes, GERD, hyperlipidemia, breast cancer and 2020 treated with chemoradiation, migrai gus, gout, bipolar. Patient presents with rather multiple diffuse symptoms. She sees a whole body i s hurting. She says she has chronic low back pain for a long time. Patient has progressively gotten worse. The pain is more so in the lower lumbar to sacral area. She also complains of pain in the abdomen. She says appetite is fair. Has normally bowel movement was a twice a week. Some nausea. No fever. Has not specifically for her back pain. Consultation to surgery and orthopedics is made. No GI services available in the hospital. Review of systems: GEN.: Tired EYES: None HEENT: None NECK: None RESPIRATORY: None CARDIOVASCULAR: None GASTROINTESTINAL: As above GENITOURINARY: None MUSCULOSKELETAL: As above LYMPHATICS: None HEMATOLOGICAL: None PSYCHIATRY: Bit anxious NEUROLOGICAL: Does use a walker Past medical history to include: CAD with stent, diabetes, GERD, hyperlipidemia, right breast cancer in December 2019 with treated with radiation chemo, migraine, chronic low back pain bipolar Social history: Lives alone. Does use a walker. Still smoking 3 days ago. No alcohol. Marijuana rarely. Physical examination: VITAL SIGNS: 97.8, 63, 20, 1 25 x 73, 100% room air GENERAL: BMI 27.3, laying in bed awake, slightly uncomfortable. EYES: Pupils equal. Conjunctiva normal. HEENT: External appearance of nose and ears normal, oral cavity grossly normal. NECK: JVD not raised; masses not palpable. HEART: First and second heart sounds are normal; no edema. LUNGS: Respiratory rate normal; decreased breath sounds. ABDOMEN: Soft, diffuse upper abdominal tenderness with no guarding rigidity, liver spleen not palpable, no masses palpable. PSYCH: Alert and oriented x3; mood and affect anxiousl. MUSCULOSKELETAL:No Clubbing/cyanosis;muscles-grossly intact, no point tenderness in the lumbar spine. Evidence of OA NEUROLOGICAL: Cranial nerves grossly intact; no facial asymmetry, power and sensation grossly intact. LYMPHATICS: No lymph nodes palpable in the axilla and neck INVESTIGATIONS, reviewed in the clinical context: WBC 4.8 hemoglobin 12.5 platelets 174 sodium 126 potassium 4.4 creatinine 1.01 amylase 98 lipase 599 Troponin I less than 0.0123 UA: Negative EKG tracing personally reviewed by me-sinus bradycardia. Some ST segment changes KUB x-ray personally reviewed by me: Some fecal retention. Otherwise appears normal Computed tomography scan abdomen and pelvis: Unremarkable Assessment and plan: -Acute abdominal pain present. For last 2 days. Some nausea. Has been tolerating a diet. Has a bowel movement once or twice every 7 days. No fever no chills. Abdominal x-ray unremarkable. Possible some fecal retention. GI services not available to the hospital. Consult surgery. Change to liquid diet. We'll give 1 dose of lactulose 20 g. -Acute on chronic lower back pain in the lumbosacral area. Patient's had this going on for a while progressively gotten worse. X-ray and computed tomography scan of the area is being ordered. According orthopedic spine. We will add NSAIDs, Flexeril, K pad. -Bipolar disorder Klonopin, trazodone, Paxil -Primary osteoarthritis Pain control -CAD with stent Aspirin, Lipitor, Coreg Consult surgery. Consult orthopedics. For back pain at the proximal and 250 mg 3 times a day, Flexeril, [place] 5 mg every 6. K pad. Computed tomography scan of the lumbosacral spine/x-ray. Clear liquid diet. Care was discussed with the patient. Questions answered. Past Medical History Past Medical History: Coronary Artery Disease (CAD), Diabetes Mellitus, GERD/ Reflux, Hyperlipidemia, Myocardial Infarction ([place]) Additional Past Medical History / Comment(s): Dx rt breast CA December 2019- radiation and chemo, fx ankle November 2019, MIGRAINES, chronic back pain, gout Last Myocardial Infarction Date:: unk History of Any Multi-Drug Resistant Organisms: None Reported Past Surgical History: Breast Surgery, Heart Catheterization With Stent, Orthopedic Surgery Additional Past Surgical History / Comment(s): ORIF rt ankle -2019, EGD/COLONOSCOPY, bone marrow bx-neg, TOTAL OF 3 CARDIAC STENTS, breast bx; right breast lumpectomy w/AND 01/30/20; Past Anesthesia/Blood Transfusion Reactions: No Reported Reaction Additional Past Anesthesia/Blood Transfusion Reaction / Comment(s): clausterphobia Date of Last Stent Placement:: UNK Past Psychological History: Anxiety, Bipolar Smoking Status: Former smoker Past Alcohol Use History: None Reported Past Drug Use History: None Reported - Past Family History Son(s) Family Medical History: Cancer Sister(s) Family Medical History: Myocardial Infarction ([place]) Father Family Medical History: Diabetes Mellitus, Myocardial Infarction ([place]) Mother Family Medical History: Cancer, Myocardial Infarction ([place]) Medications and Allergies Home Medications Medication Instructions Recorded Confirmed Type PARoxetine HCL [Paxil] 40 mg PO DAILY 06/24/16 06/12/22 History Isosorbide Mononitrate ER [Imdur] 30 mg PO DAILY 09/02/17 06/12/22 History OXcarbazepine [Trileptal] 300 mg PO BID 02/19/20 06/12/22 History Aspirin EC [Ecotrin Low Dose] 81 mg PO DAILY 09/12/20 06/12/22 History traZODone HCL [Desyrel] 50 mg PO HS 02/05/21 06/12/22 History carvediloL [Coreg] 6.25 mg PO AC-BID #60 tab 02/07/21 06/12/22 Rx levETIRAcetam [Keppra] 500 mg PO BID #60 tab 04/12/21 06/12/22 Rx Ergocalciferol (Vitamin D2) 1,250 mcg PO GONZALEZ 07/21/21 06/12/22 History [Drisdol (50,000 Iu)] Rosuvastatin Calcium [Crestor] 10 mg PO DAILY 07/21/21 06/12/22 History Folic Acid 1 mg PO DAILY 08/18/21 06/12/22 History clonazePAM [KlonoPIN] 1 - 2 mg PO DAILY PRN 08/18/21 06/12/22 History Naloxone HCl [Narcan] 4 mg NASAL ONCE PRN 02/07/22 06/12/22 History Ondansetron [Zofran] 4 mg PO Q6H PRN 02/07/22 06/12/22 History Pantoprazole [Protonix] 40 mg PO AC-BRKFST #30 tab 02/09/22 06/12/22 Rx Letrozole [Femara] 2.5 mg PO DAILY 05/14/22 06/12/22 History miSOPROStoL 100 mcg PO ACHS 05/14/22 06/12/22 History HYDROcodone/APAP 10-325MG [[place] 1 tab PO BID PRN 06/12/22 06/12/22 History 10-325] Allergies Allergy/AdvReac Type Severity Reaction Status Date / Time codeine AdvReac Nausea & Verified 06/12/22 12:07 Vomiting Latex, Natural Rubber AdvReac Rash/Hives/ Verified 06/12/22 12:07 itching Physical Exam Vitals: Vital Signs Temp Pulse Resp BP Pulse Ox 06/12/22 07:23 64 18 120/55 97 06/12/22 02:57 62 16 116/58 100 06/11/22 20:29 97.8 F 63 20 125/73 100 Intake and Output 06/11/22 06/12/22 06/12/22 22:59 06:59 14:59 Other: Weight 63.503 kg Results CBC & Chem 7: 06/11/22 21:50 06/11/22 21:50 Labs: Abnormal Lab Results - Last 24 Hours (Table) 06/11/22 06/11/22 Range/Units 21:50 21:50 RBC 3.63 L (3.80-5.40) m/uL Hct 33.2 L (34.0-46.0) % MCHC 37.6 H (31.0-37.0) g/dL Sodium 126 L (137-145) mmol/L Chloride 97 L (98-107) mmol/L Glucose 105 H (74-99) mg/dL Total Protein 6.0 L (6.3-8.2) g/dL Lipase 599 H (23-300) U/L
[2022-06-12 20:23] LABS: Glucose,Whole Blood 101 mg/dL (70-110)
[2022-06-12] MEDS: HYDROcodone/APAP 5-325MG 1 EACH TAB PO SCH (21:49)
[2022-06-12] MEDS: PANTOPRAZOLE 40 MG TABLET PO SCH (21:53)
[2022-06-12] MEDS: CYCLOBENZAPRINE 5 MG TAB PO SCH (21:55)
[2022-06-12] MEDS: traZODone HCL 50 MG TAB PO SCH (21:55)
[2022-06-12] MEDS: NAPROXEN 250 MG TAB PO SCH (21:56)
[2022-06-12] MEDS: ACETAMINOPHEN TAB 325 MG TAB PO PRN (22:03)
[2022-06-13] MEDS: HYDROcodone/APAP 5-325MG 1 EACH TAB PO SCH ×5 (02:46→22:47)
[2022-06-13 06:19] LABS: Glucose,Whole Blood 92 mg/dL (70-110)
[2022-06-13] MEDS: PANTOPRAZOLE 40 MG TABLET PO SCH ×2 (06:22→16:59)
[2022-06-13] MEDS: miSOPROStoL 100 MCG TAB PO SCH ×4 (06:22→19:30)
[2022-06-13] MEDS: carvediloL 3.125 MG TAB PO SCH ×2 (06:22→17:00)
[2022-06-13] MEDS: CALCIUM CARBONATE LIQUID 500 MG/5 ML CUP PO SCH ×3 (06:22→17:00)
[2022-06-13] MEDS: NAPROXEN 250 MG TAB PO SCH ×3 (08:12→19:30)
[2022-06-13] MEDS: ISOSORBIDE MONONITRATE ER 30 MG TAB.ER.24H PO SCH (08:12)
[2022-06-13] MEDS: ASPIRIN 81 MG PO SCH (08:12)
[2022-06-13] MEDS: ATORVASTATIN 20 MG TAB PO SCH (08:13)
[2022-06-13] MEDS: levETIRAcetam 500 MG TAB PO SCH ×2 (08:13→19:30)
[2022-06-13] MEDS: PARoxetine 20 MG TAB PO SCH (08:13)
[2022-06-13] MEDS: CYCLOBENZAPRINE 5 MG TAB PO SCH ×3 (08:13→19:30)
[2022-06-13] MEDS: LETROZOLE 2.5 MG TAB PO SCH (08:14)
[2022-06-13] MEDS: OXcarbazepine 300 MG TAB PO SCH ×2 (08:14→19:30)
--- NOTE | 2022-06-13 08:25 | XR ---
EXAMINATION TYPE: XR chest 2V DATE OF EXAM: 06/13/2022 COMPARISON: 05/14/2022 HISTORY: Smoker TECHNIQUE: Frontal and lateral views of the chest are obtained. FINDINGS: There is no focal air space opacity, pleural effusion, or pneumothorax seen. The cardiac silhouette size is within normal limits. There is an incompletely healed fracture of the distal left clavicle IMPRESSION: No acute cardiopulmonary process. No interval change.
--- NOTE | 2022-06-13 08:45 | CT ---
EXAMINATION TYPE: CT lumbar spine wo con DATE OF EXAM: 06/13/2022 6:55 AM COMPARISON: None HISTORY: Acute low back pain Technique: CT DLP: 557.3 mGycm Automated exposure control for dose reduction was used. Unenhanced CT of the lumbar spine was performed. Bone and soft tissue window settings are submitted as well as coronal and sagittal reconstructions. Findings: The lumbar vertebral segments are normal in height and alignment and there is no fracture or subluxat ion There is moderate to marked degenerative disc disease at the L1-2 level with marked disc space narrow ing, mild spondylosis and moderate to marked discogenic endplate changes. There is mild degenerative disc disease with mild disc space narrowing and spondylosis at the L2-3 an d L3-4 levels. There is a moderate broad-based disc protrusion at the L5-S1 level on the left compromising the neura l foramina left lateral recess. Secondary to circumferential disc bulge and marked thickening of ligamentum flavum, there is a modera te to severe spinal stenosis at the L3-4 and L4-5 levels. There is moderate facet arthropathy at the L3-4, L4-5 and L5-S1. Visualized sacrum and SI joints are normal. There is marked calcification of the abdominal aorta with out evidence of aneurysm. Impression: 1. Moderate broad-based disc protrusion at the L5-S1 level on the left compromising the neural forami na and lateral recess. 2. Moderate to severe spinal stenosis at the L3-4 and L4-5 levels. 3. Multilevel degenerative disc disease, severe at the L1-2 level 4. Moderate facet arthropathy at the L3-4, L4-5 and L5-S1 levels.
[2022-06-13] MEDS ORDERED: FAMOTIDINE 20 MG TAB PO SCH (09:00)
[2022-06-13 09:26] LABS: Basophils % (A) 2 %; Eosinophils # (A) 0.1 k/uL (0-0.7); Eosinophils % (A) 4 %; HCT 33.7 % (34.0-46.0); HGB 11.9 gm/dL (11.4-16.0); Lymphocytes % (A) 31 %; MCH 34.4 pg (25.0-35.0); MCHC 35.3 g/dL (31.0-37.0); Mean Platelet Volume 7.5; Monocytes # (A) 0.2 k/uL (0-1.0); Monocytes % (A) 7 %; Neutrophils # (A) 1.7 k/uL (1.3-7.7); Neutrophils % (A) 54 %; Platelet Count 146 k/uL (150-450); RBC 3.46 m/uL (3.80-5.40); WBC 3.1 k/uL (3.8-10.6)
[2022-06-13 09:30] LABS: MCV 97.4 fL (80.0-100.0)
[2022-06-13 09:39] LABS: Albumin 3.6 g/dL (3.5-5.0); Calcium 8.3 mg/dL (8.4-10.2); Potassium 4.3 mmol/L (3.5-5.1); Total Bilirubin 0.4 mg/dL (0.2-1.3); Total Protein 5.4 g/dL (6.3-8.2)
--- NOTE | 2022-06-13 10:26 | P.GSCN ---
History of Present Illness Consult date: 06/13/22 Reason for Consult: Abdominal pain History of present illness: 72-year-old female presents to the hospital with multiple complaints. We were c onsulted because of complaints of abdominal pain. Patient states her pain in the abdomen is diffuse. Appetite somewhat diminished. There was concern for possible obstruction or impaction. Patient was just hospitalized one month ago with similar complaints. CAT scan at that time suggested possible fecal impaction. Patient had clearance of the impaction clinically with cathartics. She is tolerating her clear liquid diet. She is hungry. She says she does not feel impacted. She says her last colonoscopy was several years ago. Abdominal pain is radiating down her legs. There is some nausea but no vomiting. No rectal bleeding or melena. Review of Systems The patient denies any acute changes in vision or hearing, no dysphagia or odynophagia, no chest pain or shortness of breath, no dysuria or hematuria, no headache, no runny nose, no rectal bleeding or melena, no unexplained weight loss Past Medical History Past Medical History: Coronary Artery Disease (CAD), Diabetes Mellitus, GERD/Reflux, Hyperlipidemia, Myocardial Infarction ([place]) Additional Past Medical History / Comment(s): Dx rt breast CA December 2019- radiation and chemo, fx ankle November 2019, MIGRAINES, chronic back pain, gout Last Myocardial Infarction Date:: unk History of Any Multi-Drug Resistant Organisms: None Reported Past Surgical History: Breast Surgery, Heart Catheterization With Stent, Orthopedic Surgery Additional Past Surgical History / Comment(s): ORIF rt ankle -2019, EGD/COLONOSCOPY, bone marrow bx-neg, TOTAL OF 3 CARDIAC STENTS, breast bx; right breast lumpectomy w/AND 01/30/20; Past Anesthesia/Blood Transfusion Reactions: No Reported Reaction Additional Past Anesthesia/Blood Transfusion Reaction / Comm: clausterphobia Date of Last Stent Placement:: UNK Past Psychological History: Anxiety, Bipolar Smoking Status: Former smoker Past Alcohol Use History: None Reported Past Drug Use History: None Reported - Past Family History Son(s) Family Medical History: Cancer Sister(s) Family Medical History: Myocardial Infarction ([place]) Father Family Medical History: Diabetes Mellitus, Myocardial Infarction ([place]) Mother Family Medical History: Cancer, Myocardial Infarction ([place]) Medications and Allergies Home Medications Medication Instructions Recorded Confirmed Type PARoxetine HCL [Paxil] 40 mg PO DAILY 06/24/16 06/12/22 History Isosorbide Mononitrate ER [Imdur] 30 mg PO DAILY 09/02/17 06/12/22 History OXcarbazepine [Trileptal] 300 mg PO BID 02/19/20 06/12/22 History Aspirin EC [Ecotrin Low Dose] 81 mg PO DAILY 09/12/20 06/12/22 History traZODone HCL [Desyrel] 50 mg PO HS 02/05/21 06/12/22 History carvediloL [Coreg] 6.25 mg PO AC-BID #60 tab 02/07/21 06/12/22 Rx levETIRAcetam [Keppra] 500 mg PO BID #60 tab 04/12/21 06/12/22 Rx Ergocalciferol (Vitamin D2) 1,250 mcg PO GONZALEZ 07/21/21 06/12/22 History [Drisdol (50,000 Iu)] Rosuvastatin Calcium [Crestor] 10 mg PO DAILY 07/21/21 06/12/22 History Folic Acid 1 mg PO DAILY 08/18/21 06/12/22 History clonazePAM [KlonoPIN] 1 - 2 mg PO DAILY PRN 08/18/21 06/12/22 History Naloxone HCl [Narcan] 4 mg NASAL ONCE PRN 02/07/22 06/12/22 History Ondansetron [Zofran] 4 mg PO Q6H PRN 02/07/22 06/12/22 History Pantoprazole [Protonix] 40 mg PO AC-BRKFST #30 tab 02/09/22 06/12/22 Rx Letrozole [Femara] 2.5 mg PO DAILY 05/14/22 06/12/22 History miSOPROStoL 100 mcg PO ACHS 05/14/22 06/12/22 History HYDROcodone/APAP 10-325MG [[place] 1 tab PO BID PRN 06/12/22 06/12/22 History 10-325] Allergies Allergy/AdvReac Type Severity Reaction Status Date / Time codeine AdvReac Nausea & Verified 06/12/22 12:07 Vomiting Latex, Natural Rubber AdvReac Rash/Hives/ Verified 06/12/22 12:07 itching Surgical - Exam Vital Signs Temp Pulse Resp BP Pulse Ox 97.8 F 63 20 125/73 100 06/11/22 20:29 06/11/22 20:29 06/11/22 20:29 06/11/22 20:29 06/11/22 20:29 Physical exam: General: Well-developed, well-nourished HEENT: Normocephalic, sclerae nonicteric Abdomen: Mild tenderness, nondistended Extremities: No edema Neuro: Alert and oriented Rectal: Digital rectal examination reveals flatus but no stool Results - Labs 06/13/22 08:53 06/13/22 08:53 Abnormal Lab Results - Last 24 Hours (Table) 06/13/22 06/13/22 Range/Units 08:53 08:53 WBC 3.1 L (3.8-10.6) k/uL RBC 3.46 L (3.80-5.40) m/uL Hct 33.7 L (34.0-46.0) % Plt Count 146 L (150-450) k/uL Sodium 134 L (137-145) mmol/L Glucose 136 H (74-99) mg/dL Calcium 8.3 L (8.4-10.2) mg/dL Total Protein 5.4 L (6.3-8.2) g/dL Diabetes panel 06/13/22 Range/Units 08:53 Sodium 134 L (137-145) mmol/L Potassium 4.3 (3.5-5.1) mmol/L Chloride 104 (98-107) mmol/L Carbon Dioxide 24 (22-30) mmol/L BUN 13 (7-17) mg/dL Creatinine 0.89 (0.52-1.04) mg/dL Glucose 136 H (74-99) mg/dL Calcium 8.3 L (8.4-10.2) mg/dL AST 18 (14-36) U/L ALT 15 (4-34) U/L Alkaline Phosphatase 72 (38-126) U/L Total Protein 5.4 L (6.3-8.2) g/dL Albumin 3.6 (3.5-5.0) g/dL Calcium panel 06/13/22 Range/Units 08:53 Calcium 8.3 L (8.4-10.2) mg/dL Albumin 3.6 (3.5-5.0) g/dL Pituitary panel 06/13/22 Range/Units 08:53 Sodium 134 L (137-145) mmol/L Potassium 4.3 (3.5-5.1) mmol/L Chloride 104 (98-107) mmol/L Carbon Dioxide 24 (22-30) mmol/L BUN 13 (7-17) mg/dL Creatinine 0.89 (0.52-1.04) mg/dL Glucose 136 H (74-99) mg/dL Calcium 8.3 L (8.4-10.2) mg/dL Adrenal panel 06/13/22 Range/Units 08:53 Sodium 134 L (137-145) mmol/L Potassium 4.3 (3.5-5.1) mmol/L Chloride 104 (98-107) mmol/L Carbon Dioxide 24 (22-30) mmol/L BUN 13 (7-17) mg/dL Creatinine 0.89 (0.52-1.04) mg/dL Glucose 136 H (74-99) mg/dL Calcium 8.3 L (8.4-10.2) mg/dL Total Bilirubin 0.4 (0.2-1.3) mg/dL AST 18 (14-36) U/L ALT 15 (4-34) U/L Alkaline Phosphatase 72 (38-126) U/L Total Protein 5.4 L (6.3-8.2) g/dL Albumin 3.6 (3.5-5.0) g/dL Assessment and Plan (1) Abdominal pain Narrative/Plan: 72-year-old female with abdominal pain. CAT scan dictated is normal. Patient has no impaction on digital rectal examination. Begin slowly advancing diet. Will follow. Current Visit: No Status: Acute Code(s): R10.9 - UNSPECIFIED ABDOMINAL PAIN SNOMED Code(s): 25267301
[2022-06-13] MEDS ORDERED: PEG 3350 (236 GM/BTL) + LYTES 4,000 ML BOTTLE PO ONE (10:27)
--- NOTE | 2022-06-13 10:42 | P.CNOR ---
History of Present Illness - [facility] Consult date: 06/13/22 Requesting physician: Yeyo Sierra Consult reason: back pain History of present illness: Patient is a 72-year-old female who presents to the emergency department [facility] [place] yesterday with generalized weakness and low back pain. Patient does have a past medical history of CAD with stent, diabetes, GERD, hyperlipidemia and breast cancer. Orthopedics has been consulted for low back pain. Patient was seen at bedside this morning lying semirecumbent position. A velásquez does say that she is having low back pain. Patient says she does have some radiation of pain down the right leg at this time. Patient denies any recent falls/injuries. Patient says she does have a history of seizures for which she recalls her last fall being about 3 months ago. Patient denies any previous orthopedic spine surgery. Patient says she did fracture her left ankle in the past for which Dr. Islas did repair her lateral malleolus. Patient says she has also had a series of steroid injection into her spine the past to help with pain. Patient says these did not help manage her pain very long. Patient says she does live at home alone and does ambulate independently. Patient does not use a walker or cane. Patient says she has been up and walking around the room such she was admitted to the hospital. Patient denies saddle anesthesia. Patient denies genital numbness/tingling. Patient denies chest pain, fever, shortness of breath, nausea, vomiting, change in vision, loss of bowel/bladder control. Past Medical History Past Medical History: Coronary Artery Disease (CAD), Diabetes Mellitus, GERD/Reflux, Hyperlipidemia, Myocardial Infarction ([place]) Additional Past Medical History / Comment(s): Dx rt breast CA December 2019- radiation and chemo, fx ankle November 2019, MIGRAINES, chronic back pain, gout Last Myocardial Infarction Date:: unk History of Any Multi-Drug Resistant Organisms: None Reported Past Surgical History: Breast Surgery, Heart Catheterization With Stent, Orthopedic Surgery Additional Past Surgical History / Comment(s): ORIF rt ankle -2019, EGD/COLONOSCOPY, bone marrow bx-neg, TOTAL OF 3 CARDIAC STENTS, breast bx; right breast lumpectomy w/AND 01/30/20; Past Anesthesia/Blood Transfusion Reactions: No Reported Reaction Additional Past Anesthesia/Blood Transfusion Reaction / Comm: clausterphobia Date of Last Stent Placement:: UNK Past Psychological History: Anxiety, Bipolar Smoking Status: Former smoker Past Alcohol Use History: None Reported Past Drug Use History: None Reported - Past Family History Son(s) Family Medical History: Cancer Sister(s) Family Medical History: Myocardial Infarction ([place]) Father Family Medical History: Diabetes Mellitus, Myocardial Infarction ([place]) Mother Family Medical History: Cancer, Myocardial Infarction ([place]) Medications and Allergies Home Medications Medication Instructions Recorded Confirmed Type PARoxetine HCL [Paxil] 40 mg PO DAILY 06/24/16 06/12/22 History Isosorbide Mononitrate ER [Imdur] 30 mg PO DAILY 09/02/17 06/12/22 History OXcarbazepine [Trileptal] 300 mg PO BID 02/19/20 06/12/22 History Aspirin EC [Ecotrin Low Dose] 81 mg PO DAILY 09/12/20 06/12/22 History traZODone HCL [Desyrel] 50 mg PO HS 02/05/21 06/12/22 History carvediloL [Coreg] 6.25 mg PO AC-BID #60 tab 02/07/21 06/12/22 Rx levETIRAcetam [Keppra] 500 mg PO BID #60 tab 04/12/21 06/12/22 Rx Ergocalciferol (Vitamin D2) 1,250 mcg PO GONZALEZ 07/21/21 06/12/22 History [Drisdol (50,000 Iu)] Rosuvastatin Calcium [Crestor] 10 mg PO DAILY 07/21/21 06/12/22 History Folic Acid 1 mg PO DAILY 08/18/21 06/12/22 History clonazePAM [KlonoPIN] 1 - 2 mg PO DAILY PRN 08/18/21 06/12/22 History Naloxone HCl [Narcan] 4 mg NASAL ONCE PRN 02/07/22 06/12/22 History Ondansetron [Zofran] 4 mg PO Q6H PRN 02/07/22 06/12/22 History Pantoprazole [Protonix] 40 mg PO AC-BRKFST #30 tab 02/09/22 06/12/22 Rx Letrozole [Femara] 2.5 mg PO DAILY 05/14/22 06/12/22 History miSOPROStoL 100 mcg PO ACHS 05/14/22 06/12/22 History HYDROcodone/APAP 10-325MG [[place] 1 tab PO BID PRN 06/12/22 06/12/22 History 10-325] Allergies Allergy/AdvReac Type Severity Reaction Status Date / Time codeine AdvReac Nausea & Verified 06/12/22 12:07 Vomiting Latex, Natural Rubber AdvReac Rash/Hives/ Verified 06/12/22 12:07 itching Physical Examination Inspection: Negative for any open fractures, significant ecchymosis/erythema/ulcers. Sensation: Sensation is equal, symmetric, bilaterally intact throughout the upper and lower extremities. Palpation: Moderate tenderness to palpation over the lumbar spine at midline. Moderate to severe tenderness to palpation over the right SI joint. Moderate tenderness to palpation over the left SI joint. There is some mild tenderness palpation over the lower cervical spine. Nontender to palpation throughout rest of exam Range of motion: Patient has full range of motion bilateral upper extremities on exam. Patient does have some limited range of motion in the bilateral hips on flexion/extension. Patient has full range of motion and knee flexion/extension bilaterally and right ankle dorsi/plantar flexion. There is limited range of motion in left ankle in dorsi/plantar flexion. Motor: 5/5 in all major motor groups in bilateral upper extremities. 4/5 in all major motor groups in bilateral lower extremities Special tests: Negative Suzi's bilaterally. Negative clonus bilaterally. Negative Homans bilaterally Neurovascular status: Radial pulse intact, 2+ bilaterally. Cap refill under 3 seconds in digits of upper extremities. Results - Labs Labs: Abnormal Lab Results - Last 24 Hours (Table) 06/13/22 06/13/22 Range/Units 08:53 08:53 WBC 3.1 L (3.8-10.6) k/uL RBC 3.46 L (3.80-5.40) m/uL Hct 33.7 L (34.0-46.0) % Plt Count 146 L (150-450) k/uL Sodium 134 L (137-145) mmol/L Glucose 136 H (74-99) mg/dL Calcium 8.3 L (8.4-10.2) mg/dL Total Protein 5.4 L (6.3-8.2) g/dL H & H 06/11/22 06/13/22 Range/Units 21:50 08:53 Hgb 12.5 11.9 (11.4-16.0) gm/dL Hct 33.2 L 33.7 L (34.0-46.0) % Coagulation 06/11/22 Range/Units 21:50 INR 0.9 (<1.2) Result Diagrams: 06/13/22 08:53 06/13/22 08:53 - Diagnostic results Lumbar AP/lateral x-ray: report reviewed, image reviewed (X-ray and computed t omography scan of the lumbar spine has been reviewed. There is generalized spondylosis throughout the lumbar spine. As well as degenerative disc disease. There is central cord stenosis evident at L3-L4 and L4-L5.) CT Scan - lumbar: report reviewed, image reviewed Assessment and Plan Assessment: 1. Low back pain Plan: 1. Low back pain - x-ray and computed tomography scan of the lumbar spine have been reviewed. There is generalized spondylosis throughout the lumbar spine. As well as degenerative disc disease. There is central cord stenosis evident at L3-L4 and L4-L5. Patient says she has had a series of steroid injections in the past without relief. Patient does not present with any weakness in bilateral lower extremities on exam. At this time we do not recommend any emergent/urgent orthopedic surgical intervention. We do recommend patient to follow-up in the outpatient setting with Dr. Butler for further evaluation of her low back pain. A course of IV steroids may be beneficial to the patient during her stay in hospital. We'll continue to be available to see patient as needed. 2. Appreciate medical management 3. Pain management - [place]; Tylenol; Flexeril 4. GI prophylaxis - Tums; Protonix 5. DVT prophylaxis - aspirin 6. PT/OT - weightbearing as tolerated with walker as needed 7. Encourage incentive spirometer use 8. Appreciate consult Time with Patient: Less than 30
[2022-06-13 11:32] LABS: Glucose,Whole Blood 106 mg/dL (70-110)
[2022-06-13] MEDS: FOLIC ACID 1 MG TAB PO SCH (12:00)
[2022-06-13 16:41] LABS: Glucose,Whole Blood 175 mg/dL (70-110)
--- NOTE | 2022-06-13 17:19 | P.PN ---
Progress Note - Text Progress Note Date: 06/13/22 Chief Complaint: Abdominal and back pain This is a pleasant 72-year-old patient, follows with visiting physicians Dr. Bishop. Chronic stable medical conditions include CAD with stent, diabetes, GERD, hyperlipidemia, breast cancer and 2020 treated with chemoradiation, m igraines, gout, bipolar. Patient presents with rather multiple diffuse symptoms. She sees a whole body is hurting. She says she has chronic low back pain for a long time. Patient has progressively gotten worse. The pain is more so in the lower lumbar to sacral area. She also complains of pain in the abdomen. She says appetite is fair. Has normally bowel movement was a twice a week. Some nausea. No fever. Has not specifically for her back pain. Consultation to surgery and orthopedics is made. No GI services available in the hospital. 06/13/2022: Patient seen by Dr. Mansfield from surgery. GoLYTELY ordered for constipation. Seen by Dr. Butler. Medical management. Patient had computed tomography scan spine and lumbar spine. No BM this morning awaiting GoLYTELY. Active Medications Acetaminophen (Acetaminophen Tab 325 Mg Tab) 650 mg PO Q6HR PRN PRN Reason: Mild Pain or Fever > 100.5 Last Admin: 06/12/22 22:03 Dose: 650 mg Hydrocodone Bitart/Acetaminophen (Hydrocodone/Apap 5-325mg 1 Each Tab) 1 each PO Q6HR [facility] Last Admin: 06/13/22 17:01 Dose: Not Given Aspirin (Aspirin 81 Mg) 81 mg PO DAILY [facility] Last Admin: 06/13/22 08:12 Dose: 81 mg Atorvastatin Calcium (Atorvastatin 20 Mg Tab) 20 mg PO DAILY [facility] Last Admin: 06/13/22 08:13 Dose: 20 mg Calcium Carbonate/Glycine (Calcium Carbonate Liquid 500 Mg/5 Ml Cup) 500 mg PO TID-W/MEALS [facility] Last Admin: 06/13/22 17:00 Dose: Not Given Carvedilol (Carvedilol 3.125 Mg Tab) 3.125 mg PO AC-BID [facility] Last Admin: 06/13/22 17:00 Dose: 3.125 mg Clonazepam (Clonazepam 1 Mg Tab) 1 mg PO BID PRN PRN Reason: Anxiety Cyclobenzaprine HCl (Cyclobenzaprine 5 Mg Tab) 5 mg PO TID [facility] Last Admin: 06/13/22 17:00 Dose: 5 mg Ergocalciferol (Ergocalciferol 1,250 Mcg (50,000 Iu) Capsule) 1,250 mcg PO GONZALEZ [facility] Folic Acid (Folic Acid 1 Mg Tab) 1 mg PO DAILY [facility] Last Admin: 06/13/22 12:00 Dose: 1 mg Sodium Chloride (Saline 0.9%) 1,000 mls @ 75 mls/hr IV .[id number] [facility] Last Admin: 06/12/22 17:55 Dose: Not Given Isosorbide Mononitrate (Isosorbide Mononitrate Er 30 Mg Tab.Er.24h) 30 mg PO DAILY [facility] Last Admin: 06/13/22 08:12 Dose: 30 mg Lactulose (Lactulose 20 Gm/30 Ml Cup) 20 gm PO DAILY PRN PRN Reason: Constipation Letrozole (Letrozole 2.5 Mg Tab) 2.5 mg PO DAILY [facility] Last Admin: 06/13/22 08:14 Dose: 2.5 mg Levetiracetam (Levetiracetam 500 Mg Tab) 500 mg PO BID [facility] Last Admin: 06/13/22 08:13 Dose: 500 mg Misoprostol (Misoprostol 100 Mcg Tab) 100 mcg PO ACHS [facility] Last Admin: 06/13/22 17:00 Dose: 100 mcg Naloxone HCl (Naloxone 0.4 Mg/Ml 1 Ml Vial) 0.2 mg IV Q2M PRN PRN Reason: Opioid Reversal Naproxen (Naproxen 250 Mg Tab) 250 mg PO TID [facility] Last Admin: 06/13/22 17:00 Dose: 250 mg Ondansetron HCl (Ondansetron 4 Mg/2 Ml Vial) 4 mg IVP Q8HR PRN PRN Reason: Nausea And Vomiting Oxcarbazepine (Oxcarbazepine 300 Mg Tab) 300 mg PO BID [facility] Last Admin: 06/13/22 08:14 Dose: 300 mg Pantoprazole Sodium (Pantoprazole 40 Mg Tablet) 40 mg PO AC-BID [facility] Last Admin: 06/13/22 16:59 Dose: 40 mg Paroxetine HCl (Paroxetine 20 Mg Tab) 40 mg PO DAILY [facility] Last Admin: 06/13/22 08:13 Dose: 40 mg Trazodone HCl (Trazodone Hcl 50 Mg Tab) 50 mg PO HS [facility] Last Admin: 06/12/22 21:55 Dose: 50 mg Past medical history to include: CAD with stent, diabetes, GERD, hyperlipidemia, right breast cancer in December 2019 with treated with radiation chemo, migraine, chronic low back pain bipolar Social history: Lives alone. Does use a walker. Still smoking 3 days ago. No alcohol. Marijuana rarely. Physical examination: VITAL SIGNS: 97.6, 51, 18, 150/67, 98% room air GENERAL: Reclining in bed, awake, not in distress EYES: Pupils equal. Conjunctiva normal. HEENT: External appearance of nose and ears normal, oral cavity grossly normal. NECK: JVD not raised; masses not palpable. HEART: First and second heart sounds are normal; no edema. LUNGS: Respiratory rate normal; decreased breath sounds. ABDOMEN: Soft, diffuse upper abdominal tenderness with no guarding rigidity, liver spleen not palpable, no masses palpable. PSYCH: Alert and oriented x3; mood and affect anxiousl. MUSCULOSKELETAL:No Clubbing/cyanosis;muscles-grossly intact, no point tenderness in the lumbar spine. Evidence of OA INVESTIGATIONS, reviewed in the clinical context: Computed tomography scan lumbar spine: Moderate distribution at L5-S1 compressing the neural foramina and lateral recess, moderate to severe spinal stenosis L3-L4 and L4-L5 multiple DJD at that level. Lumbosacral x-ray: No fracture. Multilevel discs DJD. 06/13/2022: White count 3.1 hemoglobin 11.9 platelets 146 potassium 4.3 creatinine 0.89 WBC 4.8 hemoglobin 12.5 platelets 174 sodium 126 potassium 4.4 creatinine 1.01 amylase 98 lipase 599 Troponin I less than 0.0123 UA: Negative EKG tracing personally reviewed by me-sinus bradycardia. Some ST segment changes KUB x-ray personally reviewed by me: Some fecal retention. Otherwise appears normal Computed tomography scan abdomen and pelvis: Unremarkable Assessment and plan: -Acute abdominal pain from fecal retention. GI services not available to the hospital. Seen by Dr. Boutte. Vicente. -Acute on chronic lower back pain in the lumbosacral area. Spinal stenosis L3- L4 and L4-L5. 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 Herniated disc at L5-S1. Naproxen, Flexeril, heating pad, Tylenol -Bipolar disorder Klonopin, trazodone, Paxil -Primary osteoarthritis Pain control -CAD with stent Aspirin, Lipitor, Coreg Lower back pain is better. Seen by orthopedic. No surgical intervention. Also seen by Dr. Mansfield from general surgery. Cinthia. Care was discussed with the patient.
[2022-06-13] MEDS: traZODone HCL 50 MG TAB PO SCH (19:30)
[2022-06-13] MEDS: clonazePAM 1 MG TAB PO PRN (19:30)
[2022-06-13] MEDS: SODIUM CHLORIDE 0.9% 1,000 ML IV SCH (19:31)
[2022-06-13 19:57] LABS: Glucose,Whole Blood 129 mg/dL (70-110)
[2022-06-14] MEDS: HYDROcodone/APAP 5-325MG 1 EACH TAB PO SCH ×3 (06:05→17:23)
[2022-06-14] MEDS: miSOPROStoL 100 MCG TAB PO SCH ×4 (06:37→20:50)
[2022-06-14] MEDS: CALCIUM CARBONATE LIQUID 500 MG/5 ML CUP PO SCH ×3 (06:37→17:23)
[2022-06-14] MEDS: carvediloL 3.125 MG TAB PO SCH ×2 (06:37→17:24)
[2022-06-14] MEDS: PANTOPRAZOLE 40 MG TABLET PO SCH ×2 (06:37→17:24)
[2022-06-14 06:38] LABS: Glucose,Whole Blood 143 mg/dL (70-110)
[2022-06-14] MEDS: levETIRAcetam 500 MG TAB PO SCH ×2 (08:18→20:48)
[2022-06-14] MEDS: ATORVASTATIN 20 MG TAB PO SCH (08:18)
[2022-06-14] MEDS: PARoxetine 20 MG TAB PO SCH (08:18)
[2022-06-14] MEDS: ISOSORBIDE MONONITRATE ER 30 MG TAB.ER.24H PO SCH (08:18)
[2022-06-14] MEDS: CYCLOBENZAPRINE 5 MG TAB PO SCH ×3 (08:18→22:08)
[2022-06-14] MEDS: ASPIRIN 81 MG PO SCH (08:18)
[2022-06-14] MEDS: FOLIC ACID 1 MG TAB PO SCH (08:18)
[2022-06-14] MEDS: NAPROXEN 250 MG TAB PO SCH ×3 (08:18→22:08)
[2022-06-14] MEDS: LETROZOLE 2.5 MG TAB PO SCH (08:19)
[2022-06-14] MEDS: OXcarbazepine 300 MG TAB PO SCH ×2 (08:19→20:49)
[2022-06-14] MEDS ORDERED: ERGOCALCIFEROL 1,250 MCG (50,000 IU) CAPSULE PO SCH (09:00)
--- NOTE | 2022-06-14 09:45 | P.PN ---
Subjective Progress Note Date: 06/14/22 Principal diagnosis: Low back pain Patient was seen at bedside this morning lying supine. Patient says she is still having low back pain at this time. Patient says there is some radiation of pain down the right leg. Patient states that most the pain is located in the right buttocks currently. Patient says she has been up walking around the room a little bit. Patient denies chest pain, fever, shortness of breath, nausea, vomiting, change in vision, loss of bowel/bladder control. Objective - Vital Signs Vital signs: Vital Signs Temp 97.8 F 06/14/22 08:32 Pulse 62 06/14/22 08:33 Resp 18 06/14/22 08:33 BP 170/77 06/14/22 08:32 Pulse Ox 100 06/14/22 08:32 FiO2 Intake & Output 06/13/22 06/14/22 06/14/22 18:59 06:59 18:59 Intake Total 358 240 Balance 358 240 Intake: Oral 358 240 Other: # Voids 1 2 # Bowel Movements 1 - Exam Inspection: Negative for any open fractures, significant ecchymosis/erythe ma/ulcers. Sensation: Sensation is equal, symmetric, bilaterally intact throughout the upper and lower extremities. Palpation: Moderate tenderness to palpation over the lumbar spine at midline. Moderate to severe tenderness to palpation over the right SI joint. Moderate tenderness to palpation over the left SI joint. There is some mild tenderness palpation over the lower cervical spine. Nontender to palpation throughout rest of exam Range of motion: Patient has full range of motion bilateral upper extremities on exam. Patient does have some limited range of motion in the bilateral hips on flexion/extension. Patient has full range of motion and knee flexion/extension bilaterally and right ankle dorsi/plantar flexion. There is limited range of motion in left ankle in dorsi/plantar flexion. Motor: 5/5 in all major motor groups in bilateral upper extremities. 4/5 in all major motor groups in bilateral lower extremities Special tests: Negative Suzi's bilaterally. Negative clonus bilaterally. Negative Homans bilaterally Neurovascular status: Radial pulse intact, 2+ bilaterally. Cap refill under 3 seconds in digits of upper extremities. - Labs CBC & Chem 7: 06/13/22 08:53 06/13/22 08:53 Labs: Abnormal Lab Results - Last 24 Hours (Table) 06/13/22 06/13/2206/13/22 Range/Units 08:53 16:39 19:55 Sodium 134 L (137-145) mmol/L Glucose 136 H (74-99) mg/dL POC Glucose (mg/dL) 175 H 129 H (70-110) mg/dL Calcium 8.3 L (8.4-10.2) mg/dL Total Protein 5.4 L (6.3-8.2) g/dL 06/14/22 Range/Units 06:36 Sodium (137-145) mmol/L Glucose (74-99) mg/dL POC Glucose (mg/dL) 143 H (70-110) mg/dL Calcium (8.4-10.2) mg/dL Total Protein (6.3-8.2) g/dL Assessment and Plan Assessment: 1. Low back pain Plan: 1. Low back pain - x-ray and computed tomography scan of the lumbar spine have been reviewed. There is generalized spondylosis throughout the lumbar spine as well as degenerative disc disease. There is central cord stenosis evident at L3-L4 and L4-L5. Patient says she has had a series of steroid injections in the past without relief. Patient does not present with any weakness in bilateral lower extremities on exam. At this time we do not recommend any emergent/urgent orthopedic surgical intervention. We do recommend patient to follow-up in the outpatient setting with Dr. Butler for further evaluation of her low back pain. A course of IV steroids and gabapentin may be beneficial to the patient during her stay in hospital. Patient is stable from an orthopedic standpoint for discharge. At this time orthopedics is signing off. Please do not hesitate to contact us for any further question 2. Appreciate medical management 3. Pain management - [place]; Tylenol; Flexeril 4. GI prophylaxis - Tums; Protonix 5. DVT prophylaxis - aspirin 6. PT/OT - weightbearing as tolerated with walker as needed 7. Encourage incentive spirometer use 8. Appreciate consult Time with Patient: Less than 30
--- NOTE | 2022-06-14 10:49 | P.PN ---
Subjective Progress Note Date: 06/14/22 Principal diagnosis: Abdominal pain Patient feels somewhat better after the bowel cleanse yesterday. She had multiple solid and subsequent loose stools. Still having some cramps. She is hungry. No nausea or vomiting. Objective - Vital Signs Vital signs: Vital Signs Temp 97.8 F 06/14/22 08:32 Pulse 62 06/14/22 08:33 Resp 18 06/14/22 08:33 BP 170/77 06/14/22 08:32 Pulse Ox 100 06/14/22 08:32 FiO2 Intake & Output 06/13/22 06/14/22 06/14/22 18:59 06:59 18:59 Intake Total 358 240 Balance 358 240 Intake: Oral 358 240 Other: # Voids 1 2 # Bowel Movements 1 - Exam Abdomen: Soft, nondistended, mild tenderness - Labs CBC & Chem 7: 06/13/22 08:53 06/13/22 08:53 Labs: Abnormal Lab Results - Last 24 Hours (Table) 06/13/22 06/13/22 06/14/22 Range/Units 16:39 19:55 06:36 POC Glucose (mg/dL) 175 H 129 H 143 H (70-110) mg/dL Assessment and Plan (1) Abdominal pain Narrative/Plan: 72-year-old female with abdominal pain and constipation. Patient tolerated the bowel cleanse. Will plan upper and lower endoscopy on Wednesday. Continue regular diet today. Clear liquids tomorrow. Current Visit: No Status: Acute Code(s): R10.9 - UNSPECIFIED ABDOMINAL PAIN SNOMED Code(s): 10238569
[2022-06-14] MEDS: clonazePAM 1 MG TAB PO PRN (15:30)
[2022-06-14] MEDS: SODIUM CHLORIDE 0.9% 1,000 ML IV SCH (15:33)
--- NOTE | 2022-06-14 20:10 | P.PN ---
Progress Note - Text Progress Note Date: 06/14/22 Chief Complaint: Abdominal and back pain This is a pleasant 72-year-old patient, follows with visiting physicians Dr. Bishop. Chronic stable medical conditions include CAD with stent, diabetes, GERD, hyperlipidemia, breast cancer and 2020 treated with chemoradiation, m igraines, gout, bipolar. Patient presents with rather multiple diffuse symptoms. She sees a whole body is hurting. She says she has chronic low back pain for a long time. Patient has progressively gotten worse. The pain is more so in the lower lumbar to sacral area. She also complains of pain in the abdomen. She says appetite is fair. Has normally bowel movement was a twice a week. Some nausea. No fever. Has not specifically for her back pain. Consultation to surgery and orthopedics is made. No GI services available in the hospital. 06/13/2022: Patient seen by Dr. Mansfield from surgery. GoLYTELY ordered for constipation. Seen by Dr. Butler. Medical management. Patient had computed tomography scan spine and lumbar spine. No BM this morning awaiting GoLYTELY. 06/14/2022: Patient received GoLYTELY. Had a lot of bowel movements. Abdominal pain much better. Oral intake well. Dr. Mansfield planning for a colonoscope in Wednesday. Patient feeling much better. Active Medications Acetaminophen (Acetaminophen Tab 325 Mg Tab) 650 mg PO Q6HR PRN PRN Reason: Mild Pain or Fever > 100.5 Last Admin: 06/12/22 22:03 Dose: 650 mg Hydrocodone Bitart/Acetaminophen (Hydrocodone/Apap 5-325mg 1 Each Tab) 1 each PO Q6HR [facility] Last Admin: 06/14/22 17:23 Dose: Not Given Aspirin (Aspirin 81 Mg) 81 mg PO DAILY [facility] Last Admin: 06/14/22 08:18 Dose: 81 mg Atorvastatin Calcium (Atorvastatin 20 Mg Tab) 20 mg PO DAILY [facility] Last Admin: 06/14/22 08:18 Dose: 20 mg Calcium Carbonate/Glycine (Calcium Carbonate Liquid 500 Mg/5 Ml Cup) 500 mg PO TID-W/MEALS [facility] Last Admin: 06/14/22 17:23 Dose: 500 mg Carvedilol (Carvedilol 3.125 Mg Tab) 3.125 mg PO AC-BID [facility] Last Admin: 06/14/22 17:24 Dose: 3.125 mg Clonazepam (Clonazepam 1 Mg Tab) 1 mg PO BID PRN PRN Reason: Anxiety Last Admin: 06/14/22 15:30 Dose: 1 mg Cyclobenzaprine HCl (Cyclobenzaprine 5 Mg Tab) 5 mg PO TID [facility] Last Admin: 06/14/22 17:24 Dose: 5 mg Ergocalciferol (Ergocalciferol 1,250 Mcg (50,000 Iu) Capsule) 1,250 mcg PO GONZALEZ [facility] Last Admin: 06/14/22 08:19 Dose: 1,250 mcg Folic Acid (Folic Acid 1 Mg Tab) 1 mg PO DAILY [facility] Last Admin: 06/14/22 08:18 Dose: 1 mg Sodium Chloride (Saline 0.9%) 1,000 mls @ 75 mls/hr IV .[id number] [facility] Last Admin: 06/14/22 15:33 Dose: 75 mls/hr Isosorbide Mononitrate (Isosorbide Mononitrate Er 30 Mg Tab.Er.24h) 30 mg PO DA CELINA [facility] Last Admin: 06/14/22 08:18 Dose: 30 mg Lactulose (Lactulose 20 Gm/30 Ml Cup) 20 gm PO DAILY PRN PRN Reason: Constipation Letrozole (Letrozole 2.5 Mg Tab) 2.5 mg PO DAILY [facility] Last Admin: 06/14/22 08:19 Dose: 2.5 mg Levetiracetam (Levetiracetam 500 Mg Tab) 500 mg PO BID [facility] Last Admin: 06/14/22 08:18 Dose: 500 mg Misoprostol (Misoprostol 100 Mcg Tab) 100 mcg PO ACHS [facility] Last Admin: 06/14/22 17:24 Dose: 100 mcg Naloxone HCl (Naloxone 0.4 Mg/Ml 1 Ml Vial) 0.2 mg IV Q2M PRN PRN Reason: Opioid Reversal Naproxen (Naproxen 250 Mg Tab) 250 mg PO TID [facility] Last Admin: 06/14/22 17:24 Dose: 250 mg Ondansetron HCl (Ondansetron 4 Mg/2 Ml Vial) 4 mg IVP Q8HR PRN PRN Reason: Nausea And Vomiting Oxcarbazepine (Oxcarbazepine 300 Mg Tab) 300 mg PO BID [facility] Last Admin: 06/14/22 08:19 Dose: 300 mg Pantoprazole Sodium (Pantoprazole 40 Mg Tablet) 40 mg PO AC-BID [facility] Last Admin: 06/14/22 17:24 Dose: 40 mg Paroxetine HCl (Paroxetine 20 Mg Tab) 40 mg PO DAILY [facility] Last Admin: 06/14/22 08:18 Dose: 40 mg Polyethylene Glycol/Electrolytes (Peg 3350 (236 Gm/Btl) + Lytes 4,000 Ml Bottle) 2,000 ml PO ONCE ONE Stop: 06/15/22 12:01 Trazodone HCl (Trazodone Hcl 50 Mg Tab) 50 mg PO HS [facility] Last Admin: 06/13/22 19:30 Dose: 50 mg Past medical history to include: CAD with stent, diabetes, GERD, hyperlipidemia, right breast cancer in December 2019 with treated with radiation chemo, migraine, chronic low back pain bipolar Social history: Lives alone. Does use a walker. Still smoking 3 days ago. No alcohol. Marijuana rarely. Physical examination: VITAL SIGNS: 98.9, 61, 18, 1:30/70, 98% room air GENERAL: Reclining in bed, comfortable EYES: Pupils equal. Conjunctiva normal. HEENT: External appearance of nose and ears normal, oral cavity grossly normal. NECK: JVD not raised; masses not palpable. HEART: First and second heart sounds are normal; no edema. LUNGS: Respiratory rate normal; decreased breath sounds. ABDOMEN: Soft, soft, no tenderness with no guarding rigidity, liver spleen not palpable, no masses palpable. PSYCH: Alert and oriented x3; mood and affect anxiousl. MUSCULOSKELETAL:No Clubbing/cyanosis;muscles-grossly intact, no point tenderness in the lumbar spine. Evidence of OA INVESTIGATIONS, reviewed in the clinical context: Computed tomography scan lumbar spine: Moderate distribution at L5-S1 compressing the neural foramina and lateral recess, moderate to severe spinal stenosis L3-L4 and L4-L5 multiple DJD at that level. Lumbosacral x-ray: No fracture. Multilevel discs DJD. 06/13/2022: White count 3.1 hemoglobin 11.9 platelets 146 potassium 4.3 creatinine 0.89 WBC 4.8 hemoglobin 12.5 platelets 174 sodium 126 potassium 4.4 creatinine 1.01 amylase 98 lipase 599 Troponin I less than 0.0123 UA: Negative EKG tracing personally reviewed by me-sinus bradycardia. Some ST segment changes KUB x-ray personally reviewed by me: Some fecal retention. Otherwise appears normal Computed tomography scan abdomen and pelvis: Unremarkable Assessment and plan: -Acute abdominal pain from fecal retention. GI services not available to the hospital. Seen by Dr. Boutte. Vicente.-Having large BM. Doing much better. For colonoscopy to stay -Acute on chronic lower back pain in the lumbosacral area. Spinal stenosis L3- L4 and L4-L5. 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 Herniated disc at L5-S1.: Better Naproxen, Flexeril, heating pad, Tylenol -Bipolar disorder Klonopin, trazodone, Paxil -Primary osteoarthritis Pain control -CAD with stent Aspirin, Lipitor, Coreg Good bowel movement. Diet advanced. For colonoscopy on Wednesday. Discussed with patient.
[2022-06-14] MEDS: traZODone HCL 50 MG TAB PO SCH (20:49)
[2022-06-14] MEDS: ACETAMINOPHEN TAB 325 MG TAB PO PRN (20:49)
[2022-06-15] MEDS: HYDROcodone/APAP 5-325MG 1 EACH TAB PO SCH ×4 (00:03→17:29)
[2022-06-15] MEDS: carvediloL 3.125 MG TAB PO SCH ×2 (06:30→17:28)
[2022-06-15] MEDS: SODIUM CHLORIDE 0.9% 1,000 ML IV SCH ×2 (06:31→13:45)
[2022-06-15] MEDS: PANTOPRAZOLE 40 MG TABLET PO SCH ×2 (08:43→17:28)
[2022-06-15] MEDS: CALCIUM CARBONATE LIQUID 500 MG/5 ML CUP PO SCH ×3 (08:43→17:29)
[2022-06-15] MEDS: levETIRAcetam 500 MG TAB PO SCH ×2 (08:43→22:38)
[2022-06-15] MEDS: ATORVASTATIN 20 MG TAB PO SCH (08:43)
[2022-06-15] MEDS: ISOSORBIDE MONONITRATE ER 30 MG TAB.ER.24H PO SCH (08:43)
[2022-06-15] MEDS: FOLIC ACID 1 MG TAB PO SCH (08:43)
[2022-06-15] MEDS: OXcarbazepine 300 MG TAB PO SCH ×2 (08:43→22:38)
[2022-06-15] MEDS: ASPIRIN 81 MG PO SCH (08:43)
[2022-06-15] MEDS: NAPROXEN 250 MG TAB PO SCH ×3 (08:44→22:38)
[2022-06-15] MEDS: PARoxetine 20 MG TAB PO SCH (08:44)
[2022-06-15] MEDS: CYCLOBENZAPRINE 5 MG TAB PO SCH ×3 (08:44→22:38)
[2022-06-15] MEDS: LETROZOLE 2.5 MG TAB PO SCH (08:45)
[2022-06-15] MEDS: miSOPROStoL 100 MCG TAB PO SCH ×4 (09:35→22:38)
[2022-06-15] MEDS ORDERED: PEG 3350 (236 GM/BTL) + LYTES 4,000 ML BOTTLE PO ONE (12:00)
--- NOTE | 2022-06-15 12:55 | P.PN ---
Subjective Progress Note Date: 06/15/22 CHIEF COMPLAINT: Abdominal pain HISTORY OF PRESENT ILLNESS: Patient reports that her abdominal pain is about the same. She did not have a bowel movement yesterday. She does report some nausea and is having flatus. Her last bowel movement was the day of admission after bowel cleanse. She currently on clear liquid diet. Scheduled for endoscopies tomorrow. Afebrile. no new labs PHYSICAL EXAM: VITAL SIGNS: Reviewed. GENERAL: Well-developed in no acute distress. HEENT: No sclera icterus. Extraocular movements grossly intact. Moist buccal mucosa. Head is atraumatic, normocephalic. ABDOMEN: Soft. Nondistended. mild tenderness with palpation NEUROLOGIC: Alert and oriented. Cranial nerves II through XII grossly intact. ASSESSMENT: 1. Abdominal pain 2. Constipation PLAN: -EGD and colonoscopy tomorrow, 06/16/[address] Jeffrey -Clear liquid diet today -Nothing by mouth after midnight -Start GoLYTELY prep today Physician Service Dog Trainer note has been reviewed by physician. Signing provider agrees with the documented findings, assessment, and plan of care. I have personally seen and examined the patient, reviewed the NIPPLE THREADER /PAs history, exam and MDM and agree with the assessment and plan as written. Based on total visit time, I have performed more than 50% of the visit. As above: Patient began her bowel prep earlier today. No bowel function thus far. Abdominal pain is improved. We'll proceed with upper and lower endoscopy tomorrow. Objective - Vital Signs Vital signs: Vital Signs Temp 98.1 F 06/15/22 11:53 Pulse 66 06/15/22 11:53 Resp 20 06/15/22 11:53 BP 139/74 06/15/22 11:53 Pulse Ox 100 06/15/22 11:53 FiO2 Intake & Output 06/14/22 06/15/22 06/15/22 18:59 06:59 18:59 Intake Total 990 450 Balance 990 450 Intake: Intake, IV Titration 750 Amount Sodium Chloride 0.9% 1, 750 000 ml @ 75 mls/hr IV . [id number] [facility] Rx#:[id number] Oral 240 450 Other: # Voids 2 - Labs CBC & Chem 7: 06/13/22 08:53 06/13/22 08:53
--- NOTE | 2022-06-15 14:36 | P.PN ---
Progress Note - Text Progress Note Date: 06/15/22 Chief Complaint: Abdominal and back pain This is a pleasant 72-year-old patient, follows with visiting physicians Dr. Bishop. Chronic stable medical conditions include CAD with stent, diabetes, GERD, hyperlipidemia, breast cancer and 2020 treated with chemoradiation, m igraines, gout, bipolar. Patient presents with rather multiple diffuse symptoms. She sees a whole body is hurting. She says she has chronic low back pain for a long time. Patient has progressively gotten worse. The pain is more so in the lower lumbar to sacral area. She also complains of pain in the abdomen. She says appetite is fair. Has normally bowel movement was a twice a week. Some nausea. No fever. Has not specifically for her back pain. Consultation to surgery and orthopedics is made. No GI services available in the hospital. 06/13/2022: Patient seen by Dr. Mansfield from surgery. GoLYTELY ordered for constipation. Seen by Dr. Butler. Medical management. Patient had computed tomography scan spine and lumbar spine. No BM this morning awaiting GoLYTELY. 06/14/2022: Patient received GoLYTELY. Had a lot of bowel movements. Abdominal pain much better. Oral intake well. Dr. Mansfield planning for a colonoscope in Wednesday. Patient feeling much better. 06/15/2022: Abdomen is much better. Comfortable. He liquid diet. For EGD colonoscopy tomorrow. Discussed with patient Active Medications Acetaminophen (Acetaminophen Tab 325 Mg Tab) 650 mg PO Q6HR PRN PRN Reason: Mild Pain or Fever > 100.5 Last Admin: 06/14/22 20:49 Dose: 650 mg Hydrocodone Bitart/Acetaminophen (Hydrocodone/Apap 5-325mg 1 Each Tab) 1 each PO Q6HR [facility] Last Admin: 06/15/22 11:16 Dose: Not Given Aspirin (Aspirin 81 Mg) 81 mg PO DAILY [facility] Last Admin: 06/15/22 08:43 Dose: 81 mg Atorvastatin Calcium (Atorvastatin 20 Mg Tab) 20 mg PO DAILY [facility] Last Admin: 06/15/22 08:43 Dose: 20 mg Calcium Carbonate/Glycine (Calcium Carbonate Liquid 500 Mg/5 Ml Cup) 500 mg PO TID-W/MEALS [facility] Last Admin: 06/15/22 13:46 Dose: 500 mg Carvedilol (Carvedilol 3.125 Mg Tab) 3.125 mg PO AC-BID [facility] Last Admin: 06/15/22 06:30 Dose: 3.125 mg Clonazepam (Clonazepam 1 Mg Tab) 1 mg PO BID PRN PRN Reason: Anxiety Last Admin: 06/14/22 15:30 Dose: 1 mg Cyclobenzaprine HCl (Cyclobenzaprine 5 Mg Tab) 5 mg PO TID [facility] Last Admin: 06/15/22 08:44 Dose: 5 mg Ergocalciferol (Ergocalciferol 1,250 Mcg (50,000 Iu) Capsule) 1,250 mcg PO GONZALEZ [facility] Last Admin: 06/14/22 08:19 Dose: 1,250 mcg Folic Acid (Folic Acid 1 Mg Tab) 1 mg PO DAILY [facility] Last Admin: 06/15/22 08:43 Dose: 1 mg Sodium Chloride (Saline 0.9%) 1,000 mls @ 75 mls/hr IV .[id number] [facility] Last Admin: 06/15/22 13:45 Dose: 75 mls/hr Isosorbide Mononitrate (Isosorbide Mononitrate Er 30 Mg Tab.Er.24h) 30 mg PO DAILY [facility] Last Admin: 06/15/22 08:43 Dose: 30 mg Lactulose (Lactulose 20 Gm/30 Ml Cup) 20 gm PO DAILY PRN PRN Reason: Constipation Letrozole (Letrozole 2.5 Mg Tab) 2.5 mg PO DAILY [facility] Last Admin: 06/15/22 08:45 Dose: 2.5 mg Levetiracetam (Levetiracetam 500 Mg Tab) 500 mg PO BID [facility] Last Admin: 06/15/22 08:43 Dose: 500 mg Misoprostol (Misoprostol 100 Mcg Tab) 100 mcg PO ACHS [facility] Last Admin: 06/15/22 13:46 Dose: 100 mcg Naloxone HCl (Naloxone 0.4 Mg/Ml 1 Ml Vial) 0.2 mg IV Q2M PRN PRN Reason: Opioid Reversal Naproxen (Naproxen 250 Mg Tab) 250 mg PO TID [facility] Last Admin: 06/15/22 08:44 Dose: 250 mg Ondansetron HCl (Ondansetron 4 Mg/2 Ml Vial) 4 mg IVP Q8HR PRN PRN Reason: Nausea And Vomiting Oxcarbazepine (Oxcarbazepine 300 Mg Tab) 300 mg PO BID [facility] Last Admin: 06/15/22 08:43 Dose: 300 mg Pantoprazole Sodium (Pantoprazole 40 Mg Tablet) 40 mg PO AC-BID [facility] Last Admin: 06/15/22 08:43 Dose: 40 mg Paroxetine HCl (Paroxetine 20 Mg Tab) 40 mg PO DAILY [facility] Last Admin: 06/15/22 08:44 Dose: 40 mg Trazodone HCl (Trazodone Hcl 50 Mg Tab) 50 mg PO HS [facility] Last Admin: 06/14/22 20:49 Dose: 50 mg Past medical history to include: CAD with stent, diabetes, GERD, hyperlipidemia, right breast cancer in December 2019 with treated with radiation chemo, migraine, chronic low back pain bipolar Social history: Lives alone. Does use a walker. Still smoking 3 days ago. No alcohol. Marijuana rarely. Physical examination: VITAL SIGNS: 98.1, 66, 20, 139/74, 90% room air GENERAL: Reclining in bed, comfortable EYES: Pupils equal. Conjunctiva normal. HEENT: External appearance of nose and ears normal, oral cavity grossly normal. NECK: JVD not raised; masses not palpable. HEART: First and second heart sounds are normal; no edema. LUNGS: Respiratory rate normal; decreased breath sounds. ABDOMEN: Soft, soft, no tenderness with no guarding rigidity, liver spleen not palpable, no masses palpable. PSYCH: Alert and oriented x3; mood and affect anxiousl. MUSCULOSKELETAL:No Clubbing/cyanosis;muscles-grossly intact, no point tenderness in the lumbar spine. Evidence of OA INVESTIGATIONS, reviewed in the clinical context: Computed tomography scan lumbar spine: Moderate distribution at L5-S1 compressing the neural foramina and lateral recess, moderate to severe spinal stenosis L3-L4 and L4-L5 multiple DJD at that level. Lumbosacral x-ray: No fracture. Multilevel discs DJD. 06/13/2022: White count 3.1 hemoglobin 11.9 platelets 146 potassium 4.3 creatinine 0.89 WBC 4.8 hemoglobin 12.5 platelets 174 sodium 126 potassium 4.4 creatinine 1.01 amylase 98 lipase 599 Troponin I less than 0.0123 UA: Negative EKG tracing personally reviewed by me-sinus bradycardia. Some ST segment changes KUB x-ray personally reviewed by me: Some fecal retention. Otherwise appears normal Computed tomography scan abdomen and pelvis: Unremarkable Assessment and plan: -Acute abdominal pain from fecal retention. GI services not available to the hospital.: Improved Seen by Dr. Boutte. Vicente.-Having large BM. Doing much better. For EGD colonoscopy tomorrow -Acute on chronic lower back pain in the lumbosacral area. Spinal stenosis L3- L4 and L4-L5. 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 Herniated disc at L5-S1.: Better Naproxen, Flexeril, heating pad, Tylenol -Bipolar disorder Klonopin, trazodone, Paxil -Primary osteoarthritis Pain control -CAD with stent Aspirin, Lipitor, Coreg Clear liquid diet. EGD coloscopy tomorrow. Other medications to continue. Back pain much better.
[2022-06-15] MEDS: traZODone HCL 50 MG TAB PO SCH (22:38)
[2022-06-16] MEDS: clonazePAM 1 MG TAB PO PRN ×2 (00:45→21:59)
[2022-06-16] MEDS ORDERED: cloNIDine HCL 0.1 MG TAB PO STA (00:58)
[2022-06-16] MEDS: HYDROcodone/APAP 5-325MG 1 EACH TAB PO SCH ×5 (01:27→23:51)
[2022-06-16 05:53] LABS: Basophils % (A) 1 %; Eosinophils # (A) 0.2 k/uL (0-0.7); Eosinophils % (A) 5 %; HCT 32.9 % (34.0-46.0); HGB 11.6 gm/dL (11.4-16.0); Lymphocytes # (A) 1.2 k/uL (1.0-4.8); Lymphocytes % (A) 30 %; MCH 34.1 pg (25.0-35.0); MCHC 35.4 g/dL (31.0-37.0); MCV 96.3 fL (80.0-100.0); Mean Platelet Volume 7.3; Monocytes # (A) 0.2 k/uL (0-1.0); Monocytes % (A) 5 %; Neutrophils # (A) 2.2 k/uL (1.3-7.7); Neutrophils % (A) 56 %; Platelet Count 154 k/uL (150-450); RBC 3.42 m/uL (3.80-5.40); WBC 3.9 k/uL (3.8-10.6)
[2022-06-16 06:07] LABS: African American GFR (CKD) >90 (>60 ml/min/1.73 sqM); Anion Gap 2 mmol/L; Blood Urea Nitrogen 6 mg/dL (7-17); Calcium 8.6 mg/dL (8.4-10.2); Carbon Dioxide 29 mmol/L (22-30); Chloride 103 mmol/L (98-107); Glucose 104 mg/dL (74-99); Non-African American GFR(CKD) 82 (>60 ml/min/1.73 sqM); Sodium 134 mmol/L (137-145)
[2022-06-16] MEDS: PANTOPRAZOLE 40 MG TABLET PO SCH ×2 (07:24→17:28)
[2022-06-16] MEDS: ASPIRIN 81 MG PO SCH (07:24)
[2022-06-16] MEDS: CALCIUM CARBONATE LIQUID 500 MG/5 ML CUP PO SCH ×3 (07:24→17:29)
[2022-06-16] MEDS: ATORVASTATIN 20 MG TAB PO SCH (07:24)
[2022-06-16] MEDS: miSOPROStoL 100 MCG TAB PO SCH ×4 (07:24→21:10)
[2022-06-16] MEDS: FOLIC ACID 1 MG TAB PO SCH (07:25)
[2022-06-16] MEDS: CYCLOBENZAPRINE 5 MG TAB PO SCH ×3 (07:25→21:10)
[2022-06-16] MEDS: NAPROXEN 250 MG TAB PO SCH ×3 (07:25→21:10)
[2022-06-16] MEDS: ISOSORBIDE MONONITRATE ER 30 MG TAB.ER.24H PO SCH (07:57)
[2022-06-16] MEDS: OXcarbazepine 300 MG TAB PO SCH ×2 (07:58→21:10)
[2022-06-16] MEDS: levETIRAcetam 500 MG TAB PO SCH ×2 (07:58→21:10)
[2022-06-16] MEDS: carvediloL 3.125 MG TAB PO SCH ×2 (07:58→17:28)
[2022-06-16] MEDS: SODIUM CHLORIDE 0.9% 1,000 ML IV SCH ×2 (08:03→16:05)
[2022-06-16] MEDS ORDERED: MIDAZOLAM 2 MG/2 ML VIAL ONE (14:55)
[2022-06-16] MEDS ORDERED: fentaNYL (PF) 50 MCG/ML 2 ML AMP ONE (14:55)
[2022-06-16] MEDS ORDERED: LIDOCAINE 2% INJ 20 MG/ML (2 ML VIAL) ONE (14:55)
[2022-06-16] MEDS ORDERED: PROPOFOL 10 MG/ML 20 ML VIAL IV ONE (14:55)
[2022-06-16] MEDS ORDERED: IV FLUID CONTINUATION 1,000 ML IV ONE (15:15)
[2022-06-16] MEDS: PARoxetine 20 MG TAB PO SCH (16:04)
[2022-06-16] MEDS: LETROZOLE 2.5 MG TAB PO SCH (16:04)
--- NOTE | 2022-06-16 17:53 | P.PCN ---
Date of Procedure: 06/16/22 Procedure(s) Performed: PREOPERATIVE DIAGNOSIS: Abdominal pain, change in bowel habits POSTOPERATIVE DIAGNOSIS: Mild gastritis, mild duodenitis, slightly suboptimal colon prep PROCEDURE: 1. EGD with biopsy 2. Colonoscopy ANESTHESIA: MAC SURGEON: Jakob Jeffrey M.D. SPECIMENS: Antrum, duodenum ENDOSCOPIC PROCEDURE: The patient was on the endoscopy table in the left decubitus position. The Olympus gastroscope was inserted into the oropharynx and passed under direct visualization to the region of the third portion of the duodenum. From that point the scope was slowly withdrawn inspecting all surfaces carefully. There was mild duodenitis present. Biopsies of the duodenum took place. The pylorus was widely patent. The stomach was carefully inspected. There was mild gastritis present. A biopsy of the antrum took place to rule out H. pylori. Retroflexion revealed a normal hiatus. The esophagus was then carefully examined. There were no neoplastic inflammatory or polypoid lesions throughout the visualized esophagus. The patient was kept on the endoscopy table in the left decubitus position. The Olympus colonoscope was inserted into the anus and passed under direct visualization to the region of the cecum. The patient had some scattered solid and liquid stool throughout the colon. There were actually pieces of colon present. In what we thought represented the cecum there was a larger volume of liquid and solid material limiting the visualization. On several views it a ppeared we were looking at the valve however I could not intubate the ileum nor could I see the base of the cecum to identify the appendiceal orifice. We were unable to advance the scope any further from that point. The scope was withdrawn slowly. There were no neoplastic inflammatory or polypoid lesions visualized throughout the region of the suspected cecum, ascending, transverse, descending, sigmoid and rectum. There was no visible diverticulosis noted. Digital rectal examination was normal. The patient was taken to the recovery room in stable condition per anesthesia guidelines. RECOMMENDATIONS: Resume diet. Continue stool softeners.
[2022-06-16] MEDS: traZODone HCL 50 MG TAB PO SCH (21:10)
--- NOTE | 2022-06-16 21:26 | P.PN ---
Progress Note - Text Progress Note Date: 06/16/22 Chief Complaint: Abdominal and back pain This is a pleasant 72-year-old patient, follows with visiting physicians Dr. Bishop. Chronic stable medical conditions include CAD with stent, diabetes, GERD, hyperlipidemia, breast cancer and 2020 treated with chemoradiation, m igraines, gout, bipolar. Patient presents with rather multiple diffuse symptoms. She sees a whole body is hurting. She says she has chronic low back pain for a long time. Patient has progressively gotten worse. The pain is more so in the lower lumbar to sacral area. She also complains of pain in the abdomen. She says appetite is fair. Has normally bowel movement was a twice a week. Some nausea. No fever. Has not specifically for her back pain. Consultation to surgery and orthopedics is made. No GI services available in the hospital. 06/13/2022: Patient seen by Dr. Mansfield from surgery. GoLYTELY ordered for constipation. Seen by Dr. Butler. Medical management. Patient had computed tomography scan spine and lumbar spine. No BM this morning awaiting GoLYTELY. 06/14/2022: Patient received GoLYTELY. Had a lot of bowel movements. Abdominal pain much better. Oral intake well. Dr. Mansfield planning for a colonoscope in Wednesday. Patient feeling much better. 06/15/2022: Abdomen is much better. Comfortable. He liquid diet. For EGD colonoscopy tomorrow. Discussed with patient 06/16/2022: Patient was seen by me this morning. Late this afternoon patient underwent EGD colonoscopy. Mild gastritis duodenitis. Colonoscopy unremarkable. Active Medications Acetaminophen (Acetaminophen Tab 325 Mg Tab) 650 mg PO Q6HR PRN PRN Reason: Mild Pain or Fever > 100.5 Last Admin: 06/14/22 20:49 Dose: 650 mg Hydrocodone Bitart/Acetaminophen (Hydrocodone/Apap 5-325mg 1 Each Tab) 1 each PO Q6HR [facility] [place] Last Admin: 06/16/22 17:28 Dose: Not Given Aspirin (Aspirin 81 Mg) 81 mg PO DAILY [facility] [place] Last Admin: 06/16/22 07:24 Dose: Not Given Atorvastatin Calcium (Atorvastatin 20 Mg Tab) 20 mg PO DAILY [facility] [place] Last Admin: 06/16/22 07:24 Dose: Not Given Calcium Carbonate/Glycine (Calcium Carbonate Liquid 500 Mg/5 Ml Cup) 500 mg PO TID-W/MEALS [facility] [place] Last Admin: 06/16/22 17:29 Dose: 500 mg Carvedilol (Carvedilol 3.125 Mg Tab) 3.125 mg PO AC-BID [facility] [place] Last Admin: 06/16/22 17:28 Dose: 3.125 mg Clonazepam (Clonazepam 1 Mg Tab) 1 mg PO BID PRN PRN Reason: Anxiety Last Admin: 06/16/22 00:45 Dose: 1 mg Cyclobenzaprine HCl (Cyclobenzaprine 5 Mg Tab) 5 mg PO TID [facility] [place] Last Admin: 06/16/22 21:10 Dose: 5 mg Ergocalciferol (Ergocalciferol 1,250 Mcg (50,000 Iu) Capsule) 1,250 mcg PO GONZALEZ [facility] [place] Last Admin: 06/14/22 08:19 Dose: 1,250 mcg Folic Acid (Folic Acid 1 Mg Tab) 1 mg PO DAILY [facility] [place] Last Admin: 06/16/22 07:25 Dose: Not Given Sodium Chloride (Saline 0.9%) 1,000 mls @ 75 mls/hr IV .[id number] [facility] [place] Last Admin: 06/16/22 16:05 Dose: 75 mls/hr Isosorbide Mononitrate (Isosorbide Mononitrate Er 30 Mg Tab.Er.24h) 30 mg PO DAILY [facility] [place] Last Admin: 06/16/22 07:57 Dose: 30 mg Lactulose (Lactulose 20 Gm/30 Ml Cup) 20 gm PO DAILY PRN PRN Reason: Constipation Letrozole (Letrozole 2.5 Mg Tab) 2.5 mg PO DAILY [facility] [place] Last Admin: 06/16/22 16:04 Dose: 2.5 mg Levetiracetam (Levetiracetam 500 Mg Tab) 500 mg PO BID [facility] [place] Last Admin: 06/16/22 21:10 Dose: 500 mg Misoprostol (Misoprostol 100 Mcg Tab) 100 mcg PO ACHS [facility] [place] Last Admin: 06/16/22 21:10 Dose: 100 mcg Naloxone HCl (Naloxone 0.4 Mg/Ml 1 Ml Vial) 0.2 mg IV Q2M PRN PRN Reason: Opioid Reversal Naproxen (Naproxen 250 Mg Tab) 250 mg PO TID [facility] [place] Last Admin: 06/16/22 21:10 Dose: 250 mg Ondansetron HCl (Ondansetron 4 Mg/2 Ml Vial) 4 mg IVP Q8HR PRN PRN Reason: Nausea And Vomiting Oxcarbazepine (Oxcarbazepine 300 Mg Tab) 300 mg PO BID [facility] [place] Last Admin: 06/16/22 21:10 Dose: 300 mg Pantoprazole Sodium (Pantoprazole 40 Mg Tablet) 40 mg PO AC-BID [facility] [place] Last Admin: 06/16/22 17:28 Dose: 40 mg Paroxetine HCl (Paroxetine 20 Mg Tab) 40 mg PO DAILY [facility] [place] Last Admin: 06/16/22 16:04 Dose: 40 mg Trazodone HCl (Trazodone Hcl 50 Mg Tab) 50 mg PO HS [facility] [place] Last Admin: 06/16/22 21:10 Dose: 50 mg Past medical history to include: CAD with stent, diabetes, GERD, hyperlipidemia, right breast cancer in December 2019 with treated with radiation chemo, migraine, chronic low back pain bipolar Social history: Lives alone. Does use a walker. Still smoking 3 days ago. No alcohol. Marijuana rarely. Physical examination: VITAL SIGNS: 98.5, 60, 15, 1 28 x 66, 100% room air GENERAL: comfortable EYES: Pupils equal. Conjunctiva normal. HEENT: External appearance of nose and ears normal, oral cavity grossly normal. NECK: JVD not raised; masses not palpable. HEART: First and second heart sounds are normal; no edema. LUNGS: Respiratory rate normal; decreased breath sounds. ABDOMEN: Soft, soft, no tenderness with no guarding rigidity, liver spleen not palpable, no masses palpable. PSYCH: Alert and oriented x3; mood and affect anxiousl. MUSCULOSKELETAL:No Clubbing/cyanosis;muscles-grossly intact, no point tenderness in the lumbar spine. Evidence of OA INVESTIGATIONS, reviewed in the clinical context: EGD: Mild gastritis duodenitis Colonoscopy: Unremarkable 06/16/2022: White count 3.9 hemoglobin 11.6 potassium 4 creatinine 0.73 Computed tomography scan lumbar spine: Moderate distribution at L5-S1 compressing the neural foramina and lateral recess, moderate to severe spinal stenosis L3-L4 and L4-L5 multiple DJD at that level. Lumbosacral x-ray: No fracture. Multilevel discs DJD. 06/13/2022: White count 3.1 hemoglobin 11.9 platelets 146 potassium 4.3 creatinine 0.89 WBC 4.8 hemoglobin 12.5 platelets 174 sodium 126 potassium 4.4 creatinine 1.01 amylase 98 lipase 599 Troponin I less than 0.0123 UA: Negative EKG tracing personally reviewed by me-sinus bradycardia. Some ST segment changes KUB x-ray personally reviewed by me: Some fecal retention. Otherwise appears normal Computed tomography scan abdomen and pelvis: Unremarkable Assessment and plan: -Acute abdominal pain from fecal retention. GI services not available to the hospital.: Improved Seen by Dr. Boutte. Vicente.-Having large BM. Doing much better. EGD - mild gastritis duodenitis.". Unremarkable. -Acute on chronic lower back pain in the lumbosacral area. Spinal stenosis L3- L4 and L4-L5. 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 Herniated disc at L5-S1.: Better Naproxen, Flexeril, heating pad, Tylenol -Bipolar disorder Klonopin, trazodone, Paxil -Primary osteoarthritis Pain control -CAD with stent Aspirin, Lipitor, Coreg Advance diet today. Home tomorrow.
[2022-06-17] MEDS: SODIUM CHLORIDE 0.9% 1,000 ML IV SCH (05:45)
[2022-06-17] MEDS: HYDROcodone/APAP 5-325MG 1 EACH TAB PO SCH (05:45)
[2022-06-17] MEDS: levETIRAcetam 500 MG TAB PO SCH (08:31)
[2022-06-17] MEDS: NAPROXEN 250 MG TAB PO SCH (08:31)
[2022-06-17] MEDS: PARoxetine 20 MG TAB PO SCH (08:31)
[2022-06-17] MEDS: ATORVASTATIN 20 MG TAB PO SCH (08:32)
[2022-06-17] MEDS: ASPIRIN 81 MG PO SCH (08:32)
[2022-06-17] MEDS: OXcarbazepine 300 MG TAB PO SCH (08:32)
[2022-06-17] MEDS: miSOPROStoL 100 MCG TAB PO SCH ×2 (08:32→12:27)
[2022-06-17] MEDS: LETROZOLE 2.5 MG TAB PO SCH (08:32)
[2022-06-17] MEDS: PANTOPRAZOLE 40 MG TABLET PO SCH (08:32)
[2022-06-17] MEDS: FOLIC ACID 1 MG TAB PO SCH (08:32)
[2022-06-17] MEDS: carvediloL 3.125 MG TAB PO SCH (08:32)
[2022-06-17] MEDS: CALCIUM CARBONATE LIQUID 500 MG/5 ML CUP PO SCH ×2 (08:32→12:27)
[2022-06-17] MEDS: ISOSORBIDE MONONITRATE ER 30 MG TAB.ER.24H PO SCH (08:32)
[2022-06-17] MEDS: CYCLOBENZAPRINE 5 MG TAB PO SCH (08:32)
[2022-06-17] MEDS ORDERED: HYDROcodone/APAP 5-325MG 1 EACH TAB PO PRN (08:37)
--- NOTE | 2022-06-17 12:08 | P.PN ---
Subjective Progress Note Date: 06/17/22 CHIEF COMPLAINT: Abdominal pain HISTORY OF PRESENT ILLNESS: Patient is status post EGD and colonoscopy. Results demonstrated mild gastritis, mild duodenitis and slightly suboptimal prep. Patient denies abdominal pain. She is tolerating diet. Patient will like to be discharged home today. Afebrile. PHYSICAL EXAM: VITAL SIGNS: Reviewed. GENERAL: Well-developed in no acute distress. HEENT: No sclera icterus. Extraocular movements grossly intact. Moist buccal mucosa. Head is atraumatic, normocephalic. ABDOMEN: Soft. Nondistended. Nontender NEUROLOGIC: Alert and oriented. Cranial nerves II through XII grossly intact. ASSESSMENT: 1. Abdominal pain resolved 2. Constipation 3. Status post EGD and colonoscopy results demonstrating gastritis and mild duodenitis PLAN: -Patient can be discharged from surgical standpoint -Continue good bowel regimen at home Physician Gem Cutter note has been reviewed by physician. Signing provider agrees with the documented findings, assessment, and plan of care. Objective - Vital Signs Vital signs: Vital Signs Temp 98.4 F 06/17/22 05:09 Pulse 60 06/17/22 05:09 Resp 14 06/17/22 05:09 BP 161/70 06/17/22 05:09 Pulse Ox 92 L 06/17/22 05:09 FiO2 Intake & Output 06/16/22 06/17/22 06/17/22 18:59 06:59 18:59 Intake Total 1050 118 Balance 1050 118 Intake: IV 150 Intake, IV Titration 900 Amount Sodium Chloride 0.9% 1, 900 000 ml @ 75 mls/hr IV . [id number] ADAN Rx#:[id number] Oral 118 Other: # Voids 3 # Bowel Movements 1 - Labs CBC & Chem 7: 06/16/22 05:32 06/16/22 05:32
[2022-06-17 12:28] VITALS: BP 184/66; PULSE 57; RESP 18; TEMP 98.5; BMI 27.3
--- NOTE | 2022-06-17 18:28 | P.DS ---
Providers Date of admission: 06/12/22 05:12 Expected date of discharge: 06/17/22 Attending physician: Yeyo Sierra Consults: 06/12/22 13:40 Consult Physician Routine Consulting Provider: Jakob Jeffrey Consult Reason/Comments: abd pain Do you want consulting provider notified?: Yes 06/12/22 13:41 Consult Physician Routine Consulting Provider: Sotero Butler Consult Reason/Comments: lower back pain Do you want consulting provider notified?: Yes [facility] Course: Chief Complaint: Abdominal and back pain This is a pleasant 72-year-old patient, follows with visiting physicians Dr. Bishop. Chronic stable medical conditions include CAD with stent, diabetes, GERD, hyperlipidemia, breast cancer and 2020 treated with chemoradiation, migraines, gout, bipolar. Patient presents with rather multiple diffuse symptoms. She sees a whole body is hurting. She says she has chronic low back pain for a long time. Patient has progressively gotten worse. The pain is more so in the lower lumbar to sacral area. She also complains of pain in the abdomen. She says appetite is fair. Has normally bowel movement was a twice a week. Some nausea. No fever. Has not specifically for her back pain. Consultation to surgery and orthopedics is made. No GI services available in the hospital. 06/13/2022: Patient seen by Dr. Mansfield from surgery. GoLYTELY ordered for constipation. Seen by Dr. Butler. Medical management. Patient had computed tomography scan spine and lumbar spine. No BM this morning awaiting GoLYTELY. 06/14/2022: Patient received GoLYTELY. Had a lot of bowel movements. Abdominal pain much better. Oral intake well. Dr. Mansfield planning for a colonoscope in Wednesday. Patient feeling much better. 06/15/2022: Abdomen is much better. Comfortable. He liquid diet. For EGD colonoscopy tomorrow. Discussed with patient 06/16/2022: Patient was seen by me this morning. Late this afternoon patient underwent EGD colonoscopy. Mild gastritis duodenitis. Colonoscopy unremarkable. 06/17/2022: Patient doing well. Tolerating a diet. PPI added. Laxatives prescribed including Metamucil Senokot-S. Pain well controlled. Cleared by Dr. Mansfield. Questions answered. Discussion and discharge planning more than 35 minutes Past medical history to include: CAD with stent, diabetes, GERD, hyperlipidemia, right breast cancer in December 2019 with treated with radiation chemo, migraine, chronic low back pain bipolar Social history: Lives alone. Does use a walker. Still smoking 3 days ago. No alcohol. Marijuana rarely. Physical examination: VITAL SIGNS: 98.5, 57, 18, 161/70, 100% room air GENERAL: comfortable EYES: Pupils equal. Conjunctiva normal. HEENT: External appearance of nose and ears normal, oral cavity grossly normal. NECK: JVD not raised; masses not palpable. HEART: First and second heart sounds are normal; no edema. LUNGS: Respiratory rate normal; decreased breath sounds. ABDOMEN: Soft, , no tenderness with no guarding rigidity, liver spleen not palpable, no masses palpable. PSYCH: Alert and oriented x3; mood and affect anxiousl. MUSCULOSKELETAL:No Clubbing/cyanosis;muscles-grossly intact, no point tenderness in the lumbar spine. Evidence of OA INVESTIGATIONS, reviewed in the clinical context: EGD: Mild gastritis duodenitis Colonoscopy: Unremarkable 06/16/2022: White count 3.9 hemoglobin 11.6 potassium 4 creatinine 0.73 Computed tomography scan lumbar spine: Moderate distribution at L5-S1 compressing the neural foramina and lateral recess, moderate to severe spinal stenosis L3-L4 and L4-L5 multiple DJD at that level. Lumbosacral x-ray: No fracture. Multilevel discs DJD. 06/13/2022: White count 3.1 hemoglobin 11.9 platelets 146 potassium 4.3 creatinine 0.89 WBC 4.8 hemoglobin 12.5 platelets 174 sodium 126 potassium 4.4 creatinine 1.01 amylase 98 lipase 599 Troponin I less than 0.0123 UA: Negative EKG tracing personally reviewed by me-sinus bradycardia. Some ST segment changes KUB x-ray personally reviewed by me: Some fecal retention. Otherwise appears normal Computed tomography scan abdomen and pelvis: Unremarkable Assessment and plan: -Acute abdominal pain from fecal retention. GI services not available to the hospital.: Improved Seen by Dr. Mansfield. Cinthia.-Having large BM. Doing much better. -EGD - mild gastritis duodenitis.". PPI added -Acute on chronic lower back pain in the lumbosacral area. Spinal stenosis L3- L4 and L4-L5. 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 Herniated disc at L5-S1.: Better Naproxen, Flexeril, heating pad, Tylenol Follow with Dr. Butler -Bipolar disorder Klonopin, trazodone, Paxil -Primary osteoarthritis Pain control -CAD with stent Aspirin, Lipitor, Coreg Disposition: Home Plan - Discharge Summary New Discharge Prescriptions: New Cyclobenzaprine [Flexeril] 5 mg PO TID PRN #30 tab PRN Reason: Spasms Acetaminophen Tab [Tylenol] 650 mg PO Q6HR PRN tab PRN Reason: Mild Pain Or Fever > 100.5 Sennosides-Docusate Sodium [Senokot-S] 1 tab PO DAILY #30 tablet Psyllium Husk 100% [Metamucil Packet] 6 gm PO DAILY #30 packet Naproxen [Naprosyn] 250 mg PO TID #21 tab Continue PARoxetine HCL [Paxil] 40 mg PO DAILY Isosorbide Mononitrate ER [Imdur] 30 mg PO DAILY OXcarbazepine [Trileptal] 300 mg PO BID Aspirin EC [Ecotrin Low Dose] 81 mg PO DAILY traZODone HCL [Desyrel] 50 mg PO HS Ergocalciferol (Vitamin D2) [Drisdol (50,000 Iu)] 1,250 mcg PO GONZALEZ Folic Acid 1 mg PO DAILY Naloxone HCl [Narcan] 4 mg NASAL ONCE PRN PRN Reason: overdose HYDROcodone/APAP 10-325MG [[place] 10-325] 1 tab PO BID PRN PRN Reason: Pain carvediloL [Coreg] 6.25 mg PO AC-BID #60 tab levETIRAcetam [Keppra] 500 mg PO BID #60 tab Rosuvastatin Calcium [Crestor] 10 mg PO DAILY clonazePAM [KlonoPIN] 1 - 2 mg PO DAILY PRN PRN Reason: Anxiety Letrozole [Femara] 2.5 mg PO DAILY miSOPROStoL 100 mcg PO ACHS Changed Pantoprazole [Protonix] 40 mg PO BID #30 tab Discontinued Ondansetron [Zofran] 4 mg PO Q6H PRN PRN Reason: Nausea And Vomiting Discharge Medication List PARoxetine HCL [Paxil] 40 mg PO DAILY 06/24/16 [History] Isosorbide Mononitrate ER [Imdur] 30 mg PO DAILY 09/02/17 [History] OXcarbazepine [Trileptal] 300 mg PO BID 02/19/20 [History] Aspirin EC [Ecotrin Low Dose] 81 mg PO DAILY 09/12/20 [History] traZODone HCL [Desyrel] 50 mg PO HS 02/05/21 [History] carvediloL [Coreg] 6.25 mg PO AC-BID #60 tab 02/07/21 [Rx] levETIRAcetam [Keppra] 500 mg PO BID #60 tab 04/12/21 [Rx] Ergocalciferol (Vitamin D2) [Drisdol (50,000 Iu)] 1,250 mcg PO GONZALEZ 07/21/21 [History] Rosuvastatin Calcium [Crestor] 10 mg PO DAILY 07/21/21 [History] Folic Acid 1 mg PO DAILY 08/18/21 [History] clonazePAM [KlonoPIN] 1 - 2 mg PO DAILY PRN 08/18/21 [History] Naloxone HCl [Narcan] 4 mg NASAL ONCE PRN 02/07/22 [History] Letrozole [Femara] 2.5 mg PO DAILY 05/14/22 [History] miSOPROStoL 100 mcg PO ACHS 05/14/22 [History] HYDROcodone/APAP 10-325MG [[place] 10-325] 1 tab PO BID PRN 06/12/22 [History] Acetaminophen Tab [Tylenol] 650 mg PO Q6HR PRN tab 06/17/22 [Rx] Cyclobenzaprine [Flexeril] 5 mg PO TID PRN #30 tab 06/17/22 [Rx] Naproxen [Naprosyn] 250 mg PO TID #21 tab 06/17/22 [Rx] Pantoprazole [Protonix] 40 mg PO BID #30 tab 06/17/22 [Rx] Psyllium Husk 100% [Metamucil Packet] 6 gm PO DAILY #30 packet 06/17/22 [Rx] Sennosides-Docusate Sodium [Senokot-S] 1 tab PO DAILY #30 tablet 06/17/22 [Rx] Follow up Appointment(s)/Referral(s): Lucien Bishop MD [Primary Care Provider] - 06/19/22 (Patient can be seen on Wednesday, Jun.19. Doctors office will call patient with a time to come in.) Sotero Butler DO [Doctor of Osteopathic Medicine] - 06/29/22 10:30 am Patient Instructions/Handouts: Naproxen (By mouth), Cyclobenzaprine (By mouth), Pantoprazole (By mouth), Senna (By mouth), How to Stop Smoking (DC), Gastritis (DC), Chronic Back Pain (DC), Duodenitis (DC) Discharge Disposition: HOME SELF-CARE
== END 2022-06-17 15:27 | disposition home or self-care (01) | DRG 392 ==
LOC: EC 20:27 → 6NMEDSUR 06-12 05:12 → 3SCARD 06-12 05:48 → 5NMEDONC 06-14 09:10
PROVIDERS: ADMIT Hospitalist; ATTEND Hospitalist
PROC: 0DJD8ZZ Inspection of Lower Intestinal Tract, Via Natural or Artificial Opening Endoscopic (ICD-10-PCS; 2022-06-16)
PROC: 0DB98ZX Excision of Duodenum, Via Natural or Artificial Opening Endoscopic, Diagnostic (ICD-10-PCS; principal; 2022-06-16 08:10)
PROC: 0DB78ZX Excision of Stomach, Pylorus, Via Natural or Artificial Opening Endoscopic, Diagnostic (ICD-10-PCS; 2022-06-16 08:10)
DX: K29.80 Duodenitis without bleeding (principal); E87.1 Hypo-osmolality and hyponatremia; R56.9 Unspecified convulsions; F31.9 Bipolar disorder, unspecified; E11.9 Type 2 diabetes mellitus without complications; M51.27 Other intervertebral disc displacement, lumbosacral region; M48.061 Spinal stenosis, lumbar region without neurogenic claudication; K59.00 Constipation, unspecified; M47.816 Spondylosis without myelopathy or radiculopathy, lumbar region; G89.29 Other chronic pain; M19.91 Primary osteoarthritis, unspecified site; I25.10 Atherosclerotic heart disease of native coronary artery without angina pectoris; D72.820 Lymphocytosis (symptomatic); K29.50 Unspecified chronic gastritis without bleeding; R26.81 Unsteadiness on feet; E78.5 Hyperlipidemia, unspecified; R74.8 Abnormal levels of other serum enzymes; R29.6 Repeated falls; K21.9 Gastro-esophageal reflux disease without esophagitis; M10.9 Gout, unspecified; F17.210 Nicotine dependence, cigarettes, uncomplicated; G43.909 Migraine, unspecified, not intractable, without status migrainosus; R00.1 Bradycardia, unspecified; Z28.310 Unvaccinated for COVID-19; Z95.5 Presence of coronary angioplasty implant and graft; Z79.82 Long term (current) use of aspirin; Z79.899 Other long term (current) drug therapy; Z79.811 Long term (current) use of aromatase inhibitors; Z88.5 Allergy status to narcotic agent; Z91.040 Latex allergy status; I25.2 Old myocardial infarction; Z85.3 Personal history of malignant neoplasm of breast; Z92.3 Personal history of irradiation; Z92.21 Personal history of antineoplastic chemotherapy
CPT/HCPCS: 36415; 43239; 45378; 71046; 72110; 72131; 74018; 74177; 80048; 80053; 81003; 82150; 83605; 83690; 84484; 85025; 85610; 85730; 88305; 88342; 93005; 96361; 96374; 96375; 96376; 99285